=== PATIENT | female | born 1985 | race Caucasian/White ===

== ENCOUNTER 2017-10-29 14:35 | Emergency (ER) | payer OTHER ==
--- OUTSIDE RECORDS SUMMARY | 2017-10-29 14:38 | XMS REPORT ---
:1985 Author Organization eClinicalWorks Care Team Providers Name Role Phone Pal Serna Provider Role Unavailable Allergies, Adverse Reactions, Alerts Substance Reaction Event Type N.K.D.A. Info Not Available Non Drug Allergy Problems Problem Type Condition Code Onset Dates Condition Status Assessment Acute vaginitis N76.0 Active Assessment Well woman exam with routine Z01.419 Active gynecological exam Assessment Folliculitis L73.9 Active Assessment Encounter for surveillance of Z30.44 Active vaginal ring hormonal contraceptive device Problem Acute vaginitis N76.0 Active Problem Encounter for gynecological Z01.419 Active examination without abnormal finding Problem Pelvic pain R10.2 Active Problem Folliculitis L73.9 Active Assessment Encounter for gynecological Z01.419 Active examination without abnormal finding Problem Encounter for surveillance of Z30.44 Active vaginal ring hormonal contraceptive device Problem Well woman exam with routine Z01.419 Active gynecological exam Medications Medication Code Code Instructions Start End Status Dosage System Date Date NuvaRing [facility] 23344469969 0.12-0.015 Active 1 ring MG/24HR Vaginal insert vaginally for 3 weeks Clonazepam [facility] 56643435427 1 MG Orally Active 1 tablet Once a day Clindamycin ND 55034927808 1 % Externally October 03, Active 1 application Phosphate Twice a day 2018 to affected area Aripiprazole [facility] 91396154908 15 MG Orally Active 1 tablet Once a day Pristiq [facility] 32738663167 50 MG Orally Active 1 tablet Once a day Amphetamine NDC 0 20 MG Orally Active 1 tablet in Salt Combo Once a day the morning Results Name Result Date Reference Range Unit Abnormality Flag URINALYSIS AUTO W/O SCOPE (42963) ----NIT neg 20171003 ----URO 0.2 20171003 ----PROTEIN neg 20171003 ----pH 6.0 20171003 ----BLO neg 20171003 ----GLUCOSE neg 20171003 ----MIKEL neg 20171003 ----BILIRUBIN neg 20171003 ----KETONES neg 20171003 ----SPECIFIC GRAVITY 1.025 20171003 Summary Purpose eClinicalWorks Submission
--- OUTSIDE RECORDS SUMMARY | 2017-10-29 14:38 | XMS REPORT ---
:1985 Author Organization eClinicalWorks Care Team Providers Name Role Phone Pal Serna Provider Role Unavailable Allergies No Known Allergies Problems Problem Type Condition Code Onset Dates Condition Status Problem Acute vaginitis N76.0 Active Problem Encounter for gynecological Z01.419 Active examination without abnormal finding Problem Pelvic pain R10.2 Active Problem Folliculitis L73.9 Active Problem Encounter for surveillance of Z30.44 Active vaginal ring hormonal contraceptive device Problem Well woman exam with routine Z01.419 Active gynecological exam Medications Medication Code System Code Instructions Start Date End Date Status Dosage Flagyl [facility] 24804156249 500 MG Orally Active 1 tablet every 12 hours Results No Known Results Summary Purpose eClinicalWorks Submission
--- NOTE | 2017-10-29 14:58 | ER ---
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 Transition of care: patient was not received from another setting of care. Onset of symptoms was October 29, 2017. Risk Assessment: Do you want to hurt yourself or someone else? Patient reports no desire to harm self or others. Initial Sepsis Screen: Does the patient meet any 2 criteria? No. Patient's initial sepsis screen is negative. Does the patient have a suspected source of infection? No. Patient's initial sepsis screen is negative. Care prior to arrival: None. 14:42 Method Of Arrival: Ambulatory sg 14:42 Acuity: CANDICE 4 sg Triage Assessment: 15:06 General: Appears in no apparent distress. comfortable, Behavior is calm, cooperative, mb3 appropriate for age. Injury Description: strain. 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 - Social history:: Smoking status: Patient uses tobacco products, denies chronic smoking, but will smoke occasionally. - Ebola Screening: : Patient negative for fever greater than or equal to 101.5 degrees Fahrenheit, and additional compatible Ebola Virus Disease symptoms Patient denies exposure to infectious person Patient denies travel to an Ebola-affected area in the 21 days before illness onset No symptoms or risks identified at this time. Screenin:05 Abuse screen: Denies threats or abuse. Nutritional screening: No deficits noted. mb3 Tuberculosis screening: No symptoms or risk factors identified. Fall Risk None identified. Assessment: 15:04 General: Appears in no apparent distress. comfortable, Behavior is calm, cooperative, mb3 appropriate for age. Pain: Complains of pain in right elbow Pain does not radiate. Neuro: No deficits noted. Cardiovascular: No deficits noted. Respiratory: No deficits noted. GI: No deficits noted. : No deficits noted. Musculoskeletal: Capillary refill < 3 seconds, Range of motion: intact in all extremities, Reports pain in right elbow. Vital Signs: 14:41 Weight 87.54 kg; Height 5 ft. 6 in. (167.64 cm); sg 14:44 BP 114 / 77; Pulse 74; Resp 14; Temp 97.9; Pulse Ox 98% on R/A; Pain 7/10; sg 14:41 Body Mass Index 31.15 (87.54 kg, 167.64 cm) sg ED Course: 14:39 Patient arrived in ED. sb2 14:40 Eduar Morales MD is Private Physician. sb2 14:41 Arm band placed on. sg 14:43 Triage completed. sg 14:48 Brittny Villa FNP-Fly is [facility]. snw 14:48 Simeon Bosch MD is Attending Physician. snw 14:56 Josh Ridley, LYNDSAY is Primary Nurse. mb3 14:56 Eduar Morales MD is Referral Physician. snw 15:06 No provider procedures requiring assistance completed. Patient did not have IV access mb3 during this emergency room visit. 15:07 Patient has correct armband on for positive identification. mb3 Administered Medications: No medications were administered Outcome: 14:57 Discharge ordered by . snw 15:05 Discharged to home ambulatory. mb3 15:05 Condition: stable 15:05 Discharge instructions given to patient, Instructed on discharge instructions, follow up and referral plans. medication usage, Demonstrated understanding of instructions, follow-up care, medications, Prescriptions given X 1. 15:07 Patient left the ED. mb3 Signatures: Dany Scott RN RN sg Brittny Villa FNP-C BUSINESS SUPPORT-Csnw Adele Amezcua sb2 Josh Ridley RN RN mb3
--- NOTE | 2017-10-29 14:58 | EDPHYS ---
Physician Documentation [facility] Name: Yuli Talbert Age: 32 yrs Sex: Female : 1985 Arrival Date: 10/29/2017 Time: 14:39 Bed 24 Private MD: Eduar Morales E ED Physician Simeon Bosch HPI: 10/29 15:05 This 32 yrs old Female presents to ER via Ambulatory with complaints of Elbow snw Injury. 15:05 The patient or guardian complains of pain, that is acute, swelling, tenderness. The snw complaints affect the left elbow. Context: The problem was sustained at a sports field or court, resulted from repetitive motion tennis elbow. Onset: The symptoms/episode began/occurred gradually, 4 year(s) ago, and became worse 4 day(s) ago, and became persistent. Associated signs and symptoms: Pertinent positives: radiation of pain to right 4th and 5th fingers. Severity of symptoms: At their worst the symptoms were moderate. The patient has experienced similar episodes in the past. It is unknown whether or not the patient has recently seen a physician. 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 - Social history:: Smoking status: Patient uses tobacco products, denies chronic smoking, but will smoke occasionally. - Ebola Screening: : Patient negative for fever greater than or equal to 101.5 degrees Fahrenheit, and additional compatible Ebola Virus Disease symptoms Patient denies exposure to infectious person Patient denies travel to an Ebola-affected area in the 21 days before illness onset No symptoms or risks identified at this time. ROS: 15:05 Constitutional: Negative for fever, chills, and weight loss, Eyes: Negative for injury, snw pain, redness, and discharge, ENT: Negative for injury, pain, and discharge, Neck: Negative for injury, pain, and swelling, Cardiovascular: Negative for chest pain, palpitations, and edema, Respiratory: Negative for shortness of breath, cough, wheezing, and pleuritic chest pain, Abdomen/GI: Negative for abdominal pain, nausea, vomiting, diarrhea, and constipation, Back: Negative for injury and pain, : Negative for injury, bleeding, discharge, and swelling, Skin: Negative for injury, rash, and discoloration, Neuro: Negative for headache, weakness, numbness, tingling, and seizure, Psych: Negative for depression, anxiety, suicide ideation, homicidal ideation, and hallucinations. 15:05 MS/extremity: Positive for injury or acute deformity, decreased range of motion, pain, tenderness, of the right elbow. Exam: 15:05 Constitutional: This is a well developed, well nourished patient who is awake, alert, snw and in no acute distress. Head/Face: Normocephalic, atraumatic. Eyes: Pupils equal round and reactive to light, extra-ocular motions intact. Lids and lashes normal. Conjunctiva and sclera are non-icteric and not injected. Cornea within normal limits. Periorbital areas with no swelling, redness, or edema. ENT: Nares patent. No nasal discharge, no septal abnormalities noted. Tympanic membranes are normal and external auditory canals are clear. Oropharynx with no redness, swelling, or masses, exudates, or evidence of obstruction, uvula midline. Mucous membranes moist. Neck: Trachea midline, no thyromegaly or masses palpated, and no cervical lymphadenopathy. Supple, full range of motion without nuchal rigidity, or vertebral point tenderness. No Meningismus. Chest/axilla: Normal chest wall appearance and motion. Nontender with no deformity. No lesions are appreciated. Cardiovascular: Regular rate and rhythm with a normal S1 and S2. No gallops, murmurs, or rubs. Normal PMI, no JVD. No pulse deficits. Respiratory: Lungs have equal breath sounds bilaterally, clear to auscultation and percussion. No rales, rhonchi or wheezes noted. No increased work of breathing, no retractions or nasal flaring. Abdomen/GI: Soft, non-tender, with normal bowel sounds. No distension or tympany. No guarding or rebound. No evidence of tenderness throughout. Back: No spinal tenderness. No costovertebral tenderness. Full range of motion. Skin: Warm, dry with normal turgor. Normal color with no rashes, no lesions, and no evidence of cellulitis. Neuro: Awake and alert, GCS 15, oriented to person, place, time, and situation. Cranial nerves II-XII grossly intact. Motor strength 5/5 in all extremities. Sensory grossly intact. Cerebellar exam normal. Normal gait. 15:05 Musculoskeletal/extremity: Extremities: all appear grossly normal, with no appreciated pain with palpation, ROM: no acute changes, Circulation is intact in all extremities. Sensation intact. Compartment Syndrome exam of affected extremity: is normal. Vital Signs: 14:41 Weight 87.54 kg; Height 5 ft. 6 in. (167.64 cm); sg 14:44 BP 114 / 77; Pulse 74; Resp 14; Temp 97.9; Pulse Ox 98% on R/A; Pain 7/10; sg 14:41 Body Mass Index 31.15 (87.54 kg, 167.64 cm) sg MDM: 14:48 Patient medically screened. snw Administered Medications: No medications were administered Disposition: 18:20 Co-signature as Attending Physician, Simeon Bosch MD. rn Disposition: 10/29/17 14:57 Discharged to Home. Impression: Lateral epicondylitis, right elbow. - Condition is Stable. - Discharge Instructions: Elastic Bandage and RICE, Tennis Elbow, Tendinitis, Cryotherapy, Heat Therapy. - Prescriptions for Diclofenac Sodium 75 mg Oral Tablet Sustained Release - take 1 tablet by ORAL route 2 times per day; 30 tablet. - Medication Reconciliation Form, Thank You Letter, Antibiotic Education, Prescription Opioid Use form. - Follow up: Eduar Morales MD; When: 5 - 6 days; Reason: Recheck today's complaints, Continuance of care, Re-evaluation by your physician. Follow up: Emergency Department; When: As needed; Reason: Worsening of condition. Signatures: Dany Scott RN RN sg Brittny Villa, DIRECTOR OF PHYSICIAN PRACTICES-C DIRECTOR OF PHYSICIAN PRACTICES-Csnw Simeon Bosch MD MD rn Barnett, Mark, RN RN mb3 Corrections: (The following items were deleted from the chart) 15:07 14:57 10/29/2017 14:57 Discharged to Home. Impression: Lateral epicondylitis, right mb3 elbow. Condition is Stable. Forms are Medication Reconciliation Form, Thank You Letter, Antibiotic Education, Prescription Opioid Use. Follow up: Eduar Morales; When: 5 - 6 days; Reason: Recheck today's complaints, Continuance of care, Re-evaluation by your physician. Follow up: Emergency Department; When: As needed; Reason: Worsening of condition. snw
== END 2017-10-29 15:07 | disposition home or self-care (01) ==
LOC: ER 14:35
DX: M77.11 Lateral epicondylitis, right elbow (principal); F17.200 Nicotine dependence, unspecified, uncomplicated
CPT/HCPCS: 99282

== ENCOUNTER 2018-01-03 14:24 | Emergency (ER) | payer OTHER ==
--- OUTSIDE RECORDS SUMMARY | 2018-01-03 14:27 | XMS REPORT ---
:1985 Author Organization eClinicalWorks Care Team Providers Name Role Phone Angelo Garcia Provider Role Unavailable Allergies, Adverse Reactions, Alerts Substance Reaction Event Type N.K.D.A. Info Not Available Non Drug Allergy Problems Problem Type Condition Code Onset Dates Condition Status Assessment Right elbow pain M25.521 Active Assessment Lateral epicondylitis of right M77.11 Active elbow Problem Acute vaginitis N76.0 Active Problem Encounter for gynecological Z01.419 Active examination without abnormal finding Problem Pelvic pain R10.2 Active Problem Folliculitis L73.9 Active Problem Encounter for surveillance of Z30.44 Active vaginal ring hormonal contraceptive device Problem Well woman exam with routine Z01.419 Active gynecological exam Medications Medication Code Code Instructions Start End Status Dosage System Date Date Clonazepam ND 30174296560 1 MG Orally Active 1 tablet Once a day Mobic ND 18266495724 7.5 MG Orally Dec 16Jan Active 1 tablet Once a day 2017 Amphetamine Salt NDC 0 20 MG Orally Active 1 tablet Combo Once a day in the morning Aripiprazole ND 83774477466 15 MG Orally Active 1 tablet Once a day Pristiq ND 77079040805 50 MG Orally Active 1 tablet Once a day Results No Known Results Summary Purpose eClinicalWorks Submission
--- OUTSIDE RECORDS SUMMARY | 2018-01-03 14:27 | XMS REPORT ---
[...] Start Date End Date Status Dosage Flagyl [facility] 69546949611 500 MG Orally Active 1 tablet every 12 hours Results No Known Results Summary Purpose eClinicalWorks Submission
--- OUTSIDE RECORDS SUMMARY | 2018-01-03 14:27 | XMS REPORT ---
[...] Status Dosage System Date Date NuvaRing [facility] 31142364072 0.12-0.015 Active 1 ring MG/24HR Vaginal insert vaginally for 3 weeks Clonazepam [facility] 58918926313 1 MG Orally Active 1 tablet Once a day Clindamycin ND 00601643273 1 % Externally October 03, Active 1 application Phosphate Twice a day 2018 to affected area Aripiprazole [facility] 49780697848 15 MG Orally Active 1 tablet Once a day Pristiq [facility] 06527816259 50 MG Orally Active 1 tablet Once a day Amphetamine NDC 0 20 MG Orally Active 1 tablet in Salt Combo Once a day the morning Results Name Result Date Reference Range Unit Abnormality Flag URINALYSIS AUTO W/O SCOPE (75075) ----NIT neg 20171003 ----URO 0.2 20171003 ----PROTEIN neg 20171003 ----pH 6.0 20171003 ----BLO neg 20171003 ----GLUCOSE neg 20171003 ----MIKEL neg 20171003 ----BILIRUBIN neg 20171003 ----KETONES neg 20171003 ----SPECIFIC GRAVITY 1.025 20171003 Summary Purpose eClinicalWorks Submission
--- NOTE | 2018-01-03 16:08 | ER ---
Nurse's Notes [facility] Name: Yuli Talbert Age: 32 yrs Sex: Female : 1985 Arrival Date: 01/03/2018 Time: 14:28 Bed 9 Private MD: Eduar Morales E Diagnosis: Streptococcal pharyngitis Presentation: 01/03 14:34 Presenting complaint: Patient states: i woke up today, and my L inner hurts and my hj throat hurts, my body aches; reports fever;. Transition of care: patient was not received from another setting of care. Onset of symptoms was January 03, 2018. Risk Assessment: Do you want to hurt yourself or someone else? Patient reports no desire to harm self or others. Initial Sepsis Screen: Does the patient meet any 2 criteria? No. Patient's initial sepsis screen is negative. Does the patient have a suspected source of infection? No. Patient's initial sepsis screen is negative. Care prior to arrival: None. 14:34 Method Of Arrival: Ambulatory 14:34 Acuity: CANDICE 4 hj Triage Assessment: 14:36 General: Appears in no apparent distress. uncomfortable, Behavior is calm, cooperative, hj appropriate for age. Pain: Complains of pain in L ear and throat. 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 - Social history:: Smoking status: Patient/guardian denies using tobacco, Patient uses alcohol, occasionally. - Ebola Screening: : Patient negative for fever greater than or equal to 101.5 degrees Fahrenheit, and additional compatible Ebola Virus Disease symptoms Patient denies exposure to infectious person Patient denies travel to an Ebola-affected area in the 21 days before illness onset. Screenin:36 Abuse screen: Denies threats or abuse. Denies injuries from another. Nutritional hj screening: No deficits noted. Tuberculosis screening: No symptoms or risk factors identified. Fall Risk None identified. Assessment: 14:36 Respiratory: Airway is patent Respiratory effort is even, unlabored, Respiratory hj pattern is regular, symmetrical, Breath sounds are clear. 16:11 Reassessment: Patient appears in no apparent distress at this time. Patient and/or rv family updated on plan of care and expected duration. Pain level reassessed. Patient is alert, oriented x 3, equal unlabored respirations, skin warm/dry/pink. 16:12 EENT: Throat is reddened. rv Vital Signs: 14:37 BP 110 / 70; Pulse 95; Resp 18; Temp 98.4(TE); Pulse Ox 99% on R/A; Weight 85.28 kg; hj Height 5 ft. 6 in. (167.64 cm); Pain 10/10; 16:11 BP 96 / 59; Pulse 88; Pulse Ox 99% on R/A; rv 14:37 Body Mass Index 30.35 (85.28 kg, 167.64 cm) hj ED Course: 14:28 Patient arrived in ED. sb2 14:28 Eduar Morales MD is Private Physician. sb2 14:35 Triage completed. hj 14:37 Arm band placed on right wrist. hj 14:37 Patient has correct armband on for positive identification. Placed in gown. Bed in low hj position. Call light in reach. Side rails up X 1. 15:13 Lg Castillo NP is PHCP. pm1 15:13 Amari Dietrich MD is Attending Physician. pm1 16:14 No provider procedures requiring assistance completed. Patient did not have IV access rv during this emergency room visit. Administered Medications: No medications were administered Outcome: 16:08 Discharge ordered by . pm1 16:12 Discharged to home ambulatory. rv 16:12 Condition: good 16:12 Discharge instructions given to patient, Instructed on discharge instructions, follow up and referral plans. medication usage, Demonstrated understanding of instructions, follow-up care, medications, Prescriptions given X 1. 16:15 Patient left the ED. rv Signatures: Tal Amanda RN RN hj Lg Castillo NP ZOOKEEPER pm1 Adele Amezcua sb2 Talat Allison RN RN rv Corrections: (The following items were deleted from the chart) 14:39 14:37 Pulse 95bpm; Resp 18bpm; Pulse Ox 99% RA; Temp 98.4F Temporal; 85.28 kg; Height 5 hj ft. 6 in.; BMI: 30.3; Pain 10; hj
--- NOTE | 2018-01-03 16:08 | EDPHYS ---
Physician Documentation [facility] Name: Yuli Talbert Age: 32 yrs Sex: Female : 1985 Arrival Date: 01/03/2018 Time: 14:28 Bed 9 Private MD: Eduar Morales E ED Physician Amari Dietrich HPI: 01/03 15:56 This 32 yrs old Female presents to ER via Ambulatory with complaints of Sore pm1 Throat, Left Ear Pain. 15:56 The patient presents with sore throat. The patient describes throat pain as constant, pm1 raw, scratchy. Onset: The symptoms/episode began/occurred this morning. Severity of symptoms: in the emergency department the symptoms are unchanged. Modifying factors: The symptoms are alleviated by nothing, the symptoms are aggravated by swallowing, Patient's oral intake status: good. Associated signs and symptoms: Pertinent positives: earache, subjective fever, Pertinent negatives chest pain, chills, cough. The patient has not experienced similar symptoms in the past. The patient has not recently seen a physician. DOG WALKER: 14:37 LMP 11/23/2017 Historical: - Allergies: 14:36 NKDA; hj - Home Meds: 14:36 Abilify Oral [Active]; Adderall XR Oral [Active]; Klonopin Oral [Active]; Pristiq Oral hj [Active]; - PMHx: 14:36 Anxiety; Bipolar disorder; BORDERLINE PERSONALITY DISORDER; chronic back pain; hj - PSHx: 14:36 Knee surgery; hj - Immunization history:: Adult Immunizations up to date. - Social history:: Smoking status: Patient/guardian denies using tobacco, Patient uses alcohol, occasionally. - Ebola Screening: : Patient negative for fever greater than or equal to 101.5 degrees Fahrenheit, and additional compatible Ebola Virus Disease symptoms Patient denies exposure to infectious person Patient denies travel to an Ebola-affected area in the 21 days before illness onset. ROS: 15:56 Constitutional: Negative for fever, chills, and weight loss, Eyes: Negative for injury, pm1 pain, redness, and discharge, Neck: Negative for injury, pain, and swelling. 15:56 Cardiovascular: Negative for chest pain, palpitations, and edema, Respiratory: Negative for shortness of breath, cough, wheezing, and pleuritic chest pain, Abdomen/GI: Negative for abdominal pain, nausea, vomiting, diarrhea, and constipation, Back: Negative for injury and pain, : Negative for injury, bleeding, discharge, and swelling, MS/Extremity: Negative for injury and deformity, Skin: Negative for injury, rash, and discoloration, Neuro: Negative for headache, weakness, numbness, tingling, and seizure. 15:56 ENT: Positive for ear pain, sore throat, Negative for difficulty swallowing, difficulty handling secretions, hoarseness. Exam: 15:56 Constitutional: This is a well developed, well nourished patient who is awake, alert, pm1 and in no acute distress. Head/Face: Normocephalic, atraumatic. Eyes: Pupils equal round and reactive to light, extra-ocular motions intact. Lids and lashes normal. Conjunctiva and sclera are non-icteric and not injected. Cornea within normal limits. Periorbital areas with no swelling, redness, or edema. 15:56 Neck: Trachea midline, no thyromegaly or masses palpated, and no cervical lymphadenopathy. Supple, full range of motion without nuchal rigidity, or vertebral point tenderness. No Meningismus. Chest/axilla: Normal chest wall appearance and motion. Nontender with no deformity. No lesions are appreciated. Cardiovascular: Regular rate and rhythm with a normal S1 and S2. No gallops, murmurs, or rubs. Normal PMI, no JVD. No pulse deficits. Respiratory: Lungs have equal breath sounds bilaterally, clear to auscultation and percussion. No rales, rhonchi or wheezes noted. No increased work of breathing, no retractions or nasal flaring. Abdomen/GI: Soft, non-tender, with normal bowel sounds. No distension or tympany. No guarding or rebound. No evidence of tenderness throughout. Back: No spinal tenderness. No costovertebral tenderness. Full range of motion. Skin: Warm, dry with normal turgor. Normal color with no rashes, no lesions, and no evidence of cellulitis. MS/ Extremity: Pulses equal, no cyanosis. Neurovascular intact. Full, normal range of motion. 15:56 ENT: External ear(s): are unremarkable, Ear canal(s): are normal, TM's: are normal, Nose: is normal, Mouth: is normal, Posterior pharynx: Airway: normal, no evidence of obstruction, patent, Tonsils: bilaterally enlarged, with erythema, with exudate, no ulcerations, peritonsillar mass, is not appreciated, pooling of secretions, is not appreciated. 15:56 Neuro: Orientation: is normal, Motor: is normal, moves all fours. Vital Signs: 14:37 BP 110 / 70; Pulse 95; Resp 18; Temp 98.4(TE); Pulse Ox 99% on R/A; Weight 85.28 kg; hj Height 5 ft. 6 in. (167.64 cm); Pain 10/10; 16:11 BP 96 / 59; Pulse 88; Pulse Ox 99% on R/A; rv 14:37 Body Mass Index 30.35 (85.28 kg, 167.64 cm) hj MDM: 15:13 Patient medically screened. pm1 16:07 Data reviewed: vital signs. Data interpreted: Pulse oximetry: on room air is 99 %. pm1 Interpretation: normal. Counseling: I had a detailed discussion with the patient and/or guardian regarding: the historical points, exam findings, and any diagnostic results supporting the discharge/admit diagnosis, lab results, the need for outpatient follow up, to return to the emergency department if symptoms worsen or persist or if there are any questions or concerns that arise at home. 01/03 15:28 Order name: Strep; Complete Time: 16:08 pm1 Administered Medications: No medications were administered Disposition: 01/04 08:52 Co-signature as Attending Physician, Amari Dietrich MD I agree with the assessment and gabriel plan of care. Disposition: 01/03/18 16:08 Discharged to Home. Impression: Streptococcal pharyngitis. - Condition is Stable. - Discharge Instructions: Strep Throat, Dental Work and . - Prescriptions for Amoxicillin 500 mg Oral Capsule - take 1 capsule by ORAL route every 8 hours for 10 days; 30 tablet. - Medication Reconciliation Form, Thank You Letter, Antibiotic Education, Prescription Opioid Use, Work release form form. - Follow up: Emergency Department; When: As needed; Reason: Worsening of condition. Follow up: Private Physician; When: As needed; Reason: Recheck today's complaints, Continuance of care, Re-evaluation by your physician. - Problem is new. - Symptoms have improved. Signatures: Dispatcher [employer] Amari Khalil MD MD cha Joaquin, Henry, RN RN hj Lg Castillo, JOHNY COAL HANDLER pm1 Talat Allison, RN RN rv Corrections: (The following items were deleted from the chart) 01/03 16:15 16:08 01/03/2018 16:08 Discharged to Home. Impression: Streptococcal pharyngitis. rv Condition is Stable. Forms are Medication Reconciliation Form, Thank You Letter, Antibiotic Education, Prescription Opioid Use. Follow up: Emergency Department; When: As needed; Reason: Worsening of condition. Follow up: Private Physician; When: As needed; Reason: Recheck today's complaints, Continuance of care, Re-evaluation by your physician. Problem is new. Symptoms have improved. pm1
== END 2018-01-03 16:15 | disposition home or self-care (01) ==
LOC: ER 14:24
DX: J02.0 Streptococcal pharyngitis (principal); H92.02 Otalgia, left ear; F31.9 Bipolar disorder, unspecified; F41.9 Anxiety disorder, unspecified; F60.3 Borderline personality disorder; M54.9 Dorsalgia, unspecified; G89.29 Other chronic pain
CPT/HCPCS: 87081; 99282

== ENCOUNTER 2019-08-12 13:26 | Emergency (ER) | payer OTHER ==
--- OUTSIDE RECORDS SUMMARY | 2019-08-12 13:27 | XMS REPORT ---
:1985 Author Organization [employer] Care Team Providers Name Role Phone Pal Serna Provider Role Unavailable Allergies, Adverse Reactions, Alerts Substance Reaction Event Type N.K.D.A. Info Not Available Non Drug Allergy Problems Problem Type Condition Code Onset Dates Condition Statu s Assessment Acute vaginitis N76.0 Active Assessment Well [...] End Status Dosage System Date Date NuvaRing [facility] 29467236371 0.12-0.015 Active 1 ring MG/24HR Vaginal insert vaginally for 3 weeks Clonazepam ND 18511462247 1 MG Orally Active 1 tab let Once a day Clindamycin [facility] 82701310521 1 % Externally October 03, Active 1 application Phosphate Twice a day 2018 to affecte d area Aripiprazole [facility] 44561113154 15 MG Orally Active 1 tablet Once a day Pristiq [facility] 43999421658 50 MG Orally Active 1 table t Once a day Amphetamine NDC 0 20 MG Orally Active 1 table t in Salt Combo Once a day the mornin g Results Name Result Date Reference Range Unit Abnormali ty Flag URINALYSIS AUTO W/O SCOPE (64672) ----NIT neg 20171003 ----URO 0.2 20171003 ----PROTEIN neg 20171003 ----pH 6.0 20171003 ----BLO neg 20171003 ----GLUCOSE neg 20171003 ----MIKEL neg 20171003 ----BILIRUBIN neg 20171003 ----KETONES neg 20171003 ----SPECIFIC GRAVITY 1.025 20171003 Summary Purpose eClinicalWorks Submission
--- OUTSIDE RECORDS SUMMARY | 2019-08-12 13:28 | XMS REPORT ---
:1985 Author Organization [employer] Care Team Providers Name Role Phone Pal Serna Provider Role Unavailable Allergies No Known Allergies Problems Problem Type Condition Code Onset Dates Condition Statu s Problem Acute vaginitis N76.0 Active Problem Encounter for gynecological Z01.419 Active examination without abnormal finding Problem Pelvic pain R10.2 Active Problem Folliculitis L73.9 Active Problem Encounter for surveillance of Z30.44 Active vaginal ring hormonal contraceptive device Problem Well woman exam with routine Z01.419 Active gynecological exam Medications Medication Code System Code Instructions Start Date End Date Status Dosage Flagyl [facility] 11904829639 500 MG Orally Active 1 tabl et every 12 hours Results No Known Results Summary Purpose eClinicalWorks Submission
--- OUTSIDE RECORDS SUMMARY | 2019-08-12 13:28 | XMS REPORT ---
:1985 Author Organization [facility] t Address [address] [place] [address] Dr. [address] [place] [address] Care Team Providers Name Role Phone Unavailable Unavailable Unavailable Problems This patient has no known problems. Allergies, Adverse Reactions, Alerts This patient has no known allergies or adverse reactions. Medications This patient has no known medications.
--- OUTSIDE RECORDS SUMMARY | 2019-08-12 13:28 | XMS REPORT ---
:1985 Author Organization [employer] Care Team Providers Name Role Phone Pal Serna Provider Role Unavailable Allergies No Known Allergies Problems Problem Type Condition Code Onset Dates Condition Statu s Problem Pelvic pain R10.2 Active Problem Acute vaginitis N76.0 Active Problem Painful menstrual periods N94.6 Ac tive Problem Well woman exam with routine Z01.419 Active gynecological exam Problem Folliculitis L73.9 Active Problem Encounter for gynecological Z01.419 Active examination without abnormal finding Problem Encounter for surveillance of Z30.44 Active vaginal ring hormonal contraceptive device Medications Medication Code System Code Instructions Start Date End Date Status Dosage Loestrin 24 Fe NDC 0 1-20 MG-MCG Orally September 14, Active 1 tablet Once a day 2018 Results No Known Results Summary Purpose eClinicalWorks Submission
--- OUTSIDE RECORDS SUMMARY | 2019-08-12 13:28 | XMS REPORT ---
:1985 Author Organization [employer] Care Team Providers Name Role Phone Jose Angelo Provider Role Unavailable Allergies, Adverse Reactions, Alerts Substance Reaction Event Type N.K.D.A. Info Not Available Non Drug Allergy Problems Problem Type Condition Code Onset Dates Condition Statu s Assessment Right elbow pain M25.521 Active Assessment [...] End Status Dosage System Date Date Clonazepam [facility] 70512797543 1 MG Orally Active 1 tab let Once a day Mobic [facility] 13449299542 7.5 MG Orally Dec 16Jan Active 1 tabl et Once a day 2017 Amphetamine Salt NDC 0 20 MG Orally Active 1 tablet Combo Once a day in the morning Aripiprazole ND 21944067459 15 MG Orally Active 1 tablet Once a day Pristiq ND 38727506508 50 MG Orally Active 1 table t Once a day Results No Known Results Summary Purpose eClinicalWorks Submission
--- OUTSIDE RECORDS SUMMARY | 2019-08-12 13:28 | XMS REPORT ---
[...] Active vaginal ring hormonal contraceptive device Medications No Known Medications Results No Known Results Summary Purpose eClinicalWorks Submission
--- OUTSIDE RECORDS SUMMARY | 2019-08-12 13:28 | XMS REPORT ---
:1985 Author Organization [employer] Care Team Providers Name Role Phone Pal Serna Provider Role Unavailable Allergies, Adverse Reactions, Alerts Substance Reaction Event Type N.K.D.A. Info Not Available Non Drug Allergy Problems Problem Type Condition Code Onset Dates Condition Statu s Assessment Well woman exam with routine Z01.419 Active gynecological exam Assessment Painful menstrual periods N94.6 Ac tive Assessment Encounter for surveillance of Z30.44 Active vaginal ring hormonal contraceptive device Problem Pelvic pain R10.2 Active Problem Acute vaginitis N76.0 Active Problem Painful menstrual periods N94.6 Ac tive Problem Well woman exam with routine Z01.419 Active gynecological exam Problem Folliculitis L73.9 Active Problem Encounter for gynecological Z01.419 Active examination without abnormal finding Problem Encounter for surveillance of Z30.44 Active vaginal ring hormonal contraceptive device Medications Medication Code Code Instructions Start End Status Dosage System Date Date NuvaRing [facility] 95360100058 0.12-0.015 July Active 1 ring MG/24HR Vaginal 2018 insert vaginally for 3 weeks Aripiprazole [facility] 43401698100 15 MG Orally Active 1 tablet Once a day Amphetamine Salt NDC 0 20 MG Orally Active 1 tablet Combo Once a day in the morning Clonazepam [facility] 83774122349 1 MG Orally Active 1 tab let Once a day Pristiq [facility] 40812353576 50 MG Orally Active 1 table t Once a day Results No Known Results Summary Purpose eClinicalWorks Submission
--- OUTSIDE RECORDS SUMMARY | 2019-08-12 13:28 | XMS REPORT | Summary of Care ---
:1985 Author Organization [facility] Address [address] [place] [address] Care Team Providers Name Role Phone Eduar Morales Primary Care Provider Reason for Visit Reason Comments LAB Encounter Details Date Type Department Care Team Description 12/29/2018 Dialysis Patient Care Technician Visit [facility] Wander Corona MD [address] [place] [address] Supervision of high Professional Office 2, Adc Lab risk in Building Phlebot[facility] Professional Office Building [address] [place] [address] , [address] [place] [address] Allergies No Known Allergiesdocumented as of this encounter (statuses as of 12/29/2018) Medications Medication Sig Dispensed Refills Start Date End Date Status clonazePAM 1 mg tablet 0 12/22/2018 Active PRISTIQ 50 mg 24 hr 0 12/20/2018 Active tablet methocarbamol 750 mg 0 12/28/2018 Active tablet ARIPiprazole 15 mg tablet 0 12/16/2018 Active dextroamphetamine-ampheta 0 12/26/2018 Active mine 20 mg tablet vit Take by mouth. 0 A ctive calc,iron,folic ( VITAMIN ORAL) nutritional Take by mouth. 0 Ac tive supplement/fiber (JUICE PLUS FIBRE ORAL) documented as of this encounter (statuses as of 12/29/2018) Active Problems Problem Noted Date Obesity (BMI 30-39.9) 12/29/2018 Estimated Date of Delivery Comments Yes 08/27/2019 documented as of this encounter (statuses as of 12/29/2018) Social History Tobacco Use Types Packs/Day Years Used Date Current Every Day Smoker Cigarettes Smokeless Tobacco: Never Used Alcohol Use Drinks/Week oz/Week Comments Not Currently Estimated Date of Delivery Comments Yes 08/27/2019 Sex Assigned at Date Recorded Not on file Job Start Date Occupation Industry Not on file Not on file Not on file Travel History Travel Start Travel End No recent travel history available. documented as of this encounter Last Filed Vital Signs Not on filedocumented in this encounter Plan of Treatment Date Type Specialty Care Team Description 01/19/2019 Routine Obstetrics & Corona, Wander burks MD Visit Gynecology [address] [place] [phone] Name Type Priority Associated Diagnoses Order S chedule CBC WITH DIFFERENTIAL LAB Routine Supervision of high risk Ordered: 12/29/2018 in first trimester Health Maintenance Due Date Last Done Comments PNEUMOCOCCAL 0-64 YEARS COMBINED SERIES (1 of 1 - 1993 PPSV23) VARICELLA VACCINES (1 of 2 - 13+ 2-dose series) 2000 DTaP,Tdap,and Td Vaccines (1 - Tdap) 2006 PAP SMEAR 2008 INFLUENZA VACCINE (#1) 2019 documented as of this encounter Results Not on filedocumented in this encounter Visit Diagnoses Diagnosis Supervision of high risk in rst trimester Unspecified high-risk documented in this encounter Insurance Payer Benefit Plan / Subscriber ID Effective Phone Address T ype [facility] xxxxxxxxx 2017-Prese [address] BOX Medic aid HE[facility] CHO[facility] - [place] [id number] 1 MANAGED MEDICAID [place] [phone] documented as of this encounter
--- OUTSIDE RECORDS SUMMARY | 2019-08-12 13:29 | XMS REPORT | Summary of Care ---
:1985 Author Organization [address] [address] Care Team Providers Name Role Phone Eduar Morales Primary Care Provider Rekhi Unavailable Reason for Visit Reason Comments Results Encounter Details Date Type Department Care Team Description 01/06/2019 Telephone [facility] Women's Yokasta Corona MD Results Healthcare- [address], [place] [address] [address] [place] [address] [phone] Allergies No Known Allergiesdocumented as of this encounter (statuses as of 01/06/2019) Medications Medication Sig Dispensed Refills Start Date End Date Status ABILIFY 15 mg tablet 0 12/20/2016 Active clonazePAM 1 mg tablet 0 12/22/2018 Active [...] as of this encounter (statuses as of 01/06/2019) Active Problems Problem Noted Date Obesity (BMI 30-39.9) 12/29/2018 Estimated Date of Delivery Comments Yes 08/27/2019 documented as of this encounter (statuses as of 01/06/2019) Social History Tobacco Use Types Packs/Day Years [...] & Corona, Wander burks MD Visit Gynecology [address] [place] [phone] Health Maintenance Due Date Last Done Comments PNEUMOCOCCAL 0-64 YEARS COMBINED SERIES (1 of 1 - 1993 PPSV23) DTaP,Tdap,and Td Vaccines (1 - Tdap) 2006 PAP SMEAR 2008 INFLUENZA VACCINE (#1) 2019 documented as of this encounter Results Not on filedocumented in this encounter Insurance Payer Benefit Plan / Subscriber ID Effective Phone Address T [facility] xxxxxxxxx 2016-Prese P[address]O. BOX Medic aid HEALTH CHOICE - HEALTH CHOICE nt [id number] 1 MANAGED MED[place] [phone] [facility] xxxxxxxxx 2017-Prese [address] BOX Medic aid HEALTH CHOICE - HEALTH CHOICE nt [id number] 1 MANAGED MEDICAID [place] [phone] documented as of this encounter
--- OUTSIDE RECORDS SUMMARY | 2019-08-12 13:29 | XMS REPORT | Summary of Care ---
:1985 Author Organization [address] [address] Care Team Providers Name Role Phone Eduar Morales Primary Care Provider Rekhi Unavailable Reason for Visit Reason Comments Results Encounter Details Date Type Department Care Team Description 01/06/2019 Telephone [facility] Women's Yokasta Corona MD Results Healthcare- [address], [place] [address] [address] [place] [address] [phone] Allergies No Known Allergiesdocumented as of this [...] & Corona, Wander burks MD Visit Gynecology [address] [place] [phone] Health Maintenance Due Date Last Done Comments PNEUMOCOCCAL 0-64 YEARS COMBINED SERIES (1 of 1 - 1993 PPSV23) DTaP,Tdap,and Td Vaccines (1 - Tdap) 2006 PAP SMEAR 2008 INFLUENZA VACCINE (#1) 2019 documented as of this encounter Results Not on filedocumented in this encounter Insurance Payer Benefit Plan / Subscriber ID Effective Phone Address T [facility] xxxxxxxxx 2016-Prese P[address]O. BOX Medic aid HEALTH CHOICE - HEALTH CHOICE nt [id number] 1 MANAGED MEDICA[place] [phone] [facility] [place] xxxxxxxxx 2017-Prese P[address]O. BOX Medic aid HEALTH CHOICE - HEALTH CHOICE nt [id number] 1 MANAGED MED[place] [phone] documented as of this encounter
--- OUTSIDE RECORDS SUMMARY | 2019-08-12 13:29 | XMS REPORT | Summary of Care ---
:1985 Author Organization [address] [address] Care Team Providers Name Role Phone Eduar Morales Primary Care Provider Rekhi Unavailable Reason for Visit Reason Comments Assessment Encounter Details Date Type Department Care Team Description 01/10/2019 Telephone [facility] Women's Yokasta Corona MD Assessment Healthcare- [address], [place] [address] [address] [place] [address] [phone] Allergies No Known Allergiesdocumented as of this encounter (statuses as of 01/10/2019) Medications Medication Sig Dispensed Refills Start Date [...] as of this encounter (statuses as of 01/10/2019) Active Problems Problem Noted Date Obesity (BMI 30-39.9) 12/29/2018 Estimated Date of Delivery Comments Yes 08/27/2019 documented as of this encounter (statuses as of 01/10/2019) Social History Tobacco Use Types Packs/Day Years [...] & Corona, Wander burks MD Visit Gynecology [address] [place] [phone] Health Maintenance Due Date Last Done Comments PNEUMOCOCCAL 0-64 YEARS COMBINED SERIES (1 of 1 - 1993 PPSV23) DTaP,Tdap,and Td Vaccines (1 - Tdap) 2006 PAP SMEAR 2008 INFLUENZA VACCINE (#1) 2019 documented as of this encounter Results Not on filedocumented in this encounter Insurance Payer Benefit Plan / Subscriber ID Effective Phone Address T [facility] xxxxxxxxx 2016-Prese P[address]O. BOX Medic aid HEALTH CHOICE - HEALTH CHOICE nt [id number] 1 MANAGED MEDICA[place] [address] [facility] xxxxxxxxx 2017-Prese P[address]O. BOX Medic aid HEALTH CHOICE - HEALTH CHOICE nt [id number] 1 MANAGED MED[place] [phone] documented as of this encounter
--- OUTSIDE RECORDS SUMMARY | 2019-08-12 13:29 | XMS REPORT | Summary of Care ---
:1985 Author Organization [facility] Address [address] [place] [address] Care Team Providers Name Role Phone Eduar Morales Primary Care Provider Rekhi Unavailable Reason for Visit Reason Comments MISSED MENSES Encounter Details Date Type Department Care Team Description 12/29/2018 Initial [facility] Yokasta Corona, Supervision of high risk in first trimester (Primary Dx); Visit Healthcare- MD Missed menses; [address] Obesity (BMI 30-39.9); [address] [place] [address] Depress ion, unspecified depression type [address] [phone] [place], [place] [phone] [phone] Allergies No Known Allergiesdocumented as of this encounter (statuses as of 12/30/2018) Medications Medication Sig Dispensed Refills Start Date [...] as of this encounter (statuses as of 12/30/2018) Active Problems Problem Noted Date Obesity (BMI 30-39.9) 12/29/2018 Estimated Date of Delivery Comments Yes 08/27/2019 documented as of this encounter (statuses as of 12/30/2018) Social History Tobacco Use Types Packs/Day Years Used Date Current Every Day Smoker Cigarettes Smokeless Tobacco: Never Used Tobacco Cessation: Ready to Quit: Yes; C ounseling Given: Yes Alcohol Use Drinks/Week oz/Week Comments Not Currently Estimated Date of Delivery Comments Yes 08/27/2019 Sex Assigned at Date Recorded Not on file Job Start Date Occupation Industry Not on file Not on file Not on file Travel History Travel Start Travel End No recent travel history available. documented as of this encounter Last Filed Vital Signs Vital Sign Reading Time Taken Comments Blood Pressure 130/86 12/29/2018 8:18 AM CDT Pulse 69 12/29/2018 8:18 AM CDT Temperature 36.7 C (98.1 F) 12/29/2018 8:12 AM CDT Respiratory Rate 20 12/29/2018 8:12 AM CDT Oxygen Saturation - - Inhaled Oxygen Concentration - - Weight 86.4 kg (190 lb 6.4 oz) 12/29/2018 8:12 AM CDT Height 167.6 cm (5' 6") 12/29/2018 8:12 AM CDT Body Mass Index 30.73 12/29/2018 8:12 AM CDT documented in this encounter Patient Instructions Patient InstructionsYokasta Corona MD - 12/29/2018 8:00 AM CDT Adapting to : First Trimester As your body adjusts, you may have to change or limit your daily activities. Youll need more rest. You may also need to use the energy you have more wisely. Your changing body Almost every part of your body is affected as you adapt to . The uterus and cervix will begin to soften right away. You may not look very during the first 3 months. But you are likelyto have some common signs of early : Nausea Fatigue Frequent urination Mood swings Bloating of the belly Constipation Heartburn Missed or light periods (first trimester bleeding) Nipple or breast tenderness and breast swelling Its not too late to start good habits What matters most is protecting your baby from this moment on. If you smoke, drink alcohol, or use drugs, now is the time to stop. If you need help, talk with your healthcare provider: Smoking increases the risk of stillbirthor having a tvl-ufiok-jmyceg baby. If you smoke, quit now. Alcohol and drugs have been linked with miscarriage, defects, intellectual disability, and low weight. Do not drink alcohol or take drugs. Tips to relieve nausea Although nausea can happen at any time of the day, it may be worse in the morning. To help prevent nausea: Eat small, light meals at frequent intervals. Drink fluids often. Get up slowly. Eat a few unsalted crackers before you get out of bed. Avoid smells that bother you. Avoid spicy and fatty foods. Eat an ice popin your favorite flavor. Get plenty of rest. Ask your healthcare provider about taking jaden or vitamin B6 for nausea and vomiting. Talk with your healthcare provider if you take vitamins that upset your stomach. Work concerns The end of the first trimester is a good time to discuss working during with your employer. Follow your healthcare providers advice if your job needs you to stand for a long time, work with hazardous tools, or even sit at a desk all day. Your workspace, workload, or scheduled hours may need to be adjusted. Perhaps you can change body postures more often or take an extra break. Advice for travel Talk to your healthcare provider first, but the second trimester may be the best time for any travel. You may be advised to avoid certain trips while youre . Food and water can be concerns in developing countries. Travel by car is a good choice, as you can stop, get out, and stretch. Bring snacks and water along. Fasten the lap belt below your belly, low over your hips. Also be sure to wear the shoulder harness. Intimacy Unless your healthcare provider tells you to, there is no reason to stop having sex while youre . You or your partner may notice changes in desire. Desire may be less in the first trimester,due to nausea and fatigue. In the second trimester, sex may be very enjoyable. The third trimester can be a challenge comfort-millan. Try different positions and see whats best for you both. Date Last Reviewed: 01/31/201719998248-7984 [employer]. [address] [place] [address], [place] [address]. All rights reserved. This information is not intended as a substitute for professional medical care. Always follow your healthcare professional's instructions. documented in this encounter Progress Notes Yokasta Corona MD - 12/29/2018 8:00 AM CDT Chief complaint: Chief Complaint Patient presents with MISSED MENSES HPI Yuli Talbert is a 33 year old female 5w4d by [facility] dates presents for her first visit. She has had no pelvic pain, vaginal bleeding, N/V. She does have a history of anxiety/depression and has been taking Aripiprazole/Pristiq for years, including through the duration of her pregnanci es. She sees Dr. Morales and his PA for treatment/medications. Histories OB History Para Term AB Living 6 2 2 0 3 2 SAB TAB Ectopic Multiple Live Births 1 0 0 0 2 # Outcome Date GA Lbr Keith/2nd Weight Sex Delivery Anes PTL Lv 6 Current 5 SAB 05/03/15 10w0d 4 Term 03/03/13 38w0d 3629 g M Vag-Spont EPI RUBY 3 AB 05/03/11 8w0d 2 Term 08/09/10 39w6d 3374 g F Vag-Spont EPI N RUBY Complications: High blood pressure 1 AB 05/03/08 8w0d Past Medical History: Diagnosis Date Anemia Anxiety Chlamydia 2014 Depression Bipolar Mental disorder Pap smear abnormality of cervix STD (sexually transmitted disease) Substance abuse Family History Problem Relation Age of Onset Diabetes Mother Depression Mother Psychiatry Mother Bipolar Depression Father Psychiatry Father anxiety Psychiatry Brother Bipolar Arthritis NoFHx Asthma NoFHx defects NoFHx Genetic NoFHx Breast Cancer NoFHx Colon Cancer NoFHx Ovarian Cancer NoFHx Uterine Cancer NoFHx Cancer NoFHx Heart NoFHx High cholesterol NoFHx Hypertension NoFHx Mental retardation NoFHx Neurological NoFHx Osteoporosis NoFHx Family Status Relation Name Status Mo Alive Fa Alive Bro (Not Specified) NoFHx (Not Specified) Past Surgical History: Procedure Laterality Date [place] ANESTH,KNEE AREA SURGERY 2008 Cleaned out scar tissue Social History Socioeconomic History Marital status: Single Spouse name: Not on file Number of children: Not on file Years of education: Not on file Highest education level: Not on file Occupational History Not on file Social Needs Financial resource strain: Not on file Food insecurity: Worry: Not on file Inability: Not on file Transportation needs: Medical: Not on file Non-medical: Not on file Tobacco Use Smoking status: Current Every Day Smoker Types: Cigarettes Smokeless tobacco: Never Used Substance and Sexual Activity Alcohol use: Not Currently Drug use: Yes Types: Marijuana Sexual activity: Yes Partners: Male control/protection: None Lifestyle Physical activity: Days per week: Not on file Minutes per session: Not on file Stress: Not on file Relationships Social connections: Talks on phone: Not on file Gets together: Not on file Attends gnosticist service: Not on file Active member of club or organization: Not on file Attends meetings of clubs or organizations: Not on file Relationship status: Not on file Intimate partner violence: Fear of current or ex partner: Not on file Emotionally abused: Not on file Physically abused: Not on file Forced sexual activity: Not on file Other Topics Concern Not on file Social History Narrative Denies domestic violence or abuse Exposure to cats - Toxoplasmosis precautions Rastafari preference: non-hoahaoism Social History Substance and Sexual Activity Sexual Activity Yes Partners: Male control/protection: None Genetic Screen No Significant History of Genetic Disorders: No Significant History of Genetic Disorders Labs No new labs Radiology No new radiology. Allergies Yuli has No Known Allergies. Medications Yuli has a current medication list which includes the following prescription(s): aripiprazole, nutritional supplement/fiber, vit calc,iron,folic, pristiq, clonazepam, dextroamphetamine-amphetamine, and methocarbamol. Review of Systems Constitutional: Negative. Right tooth ache HENT: Positive for dental problem. Eyes: Negative. Respiratory: Negative. Breasts: Negative. Cardiovascular: Negative. Gastrointestinal: Negative. Genitourinary: Negative. Musculoskeletal: Negative. Skin: Negative. Neurological: Negative. Psychiatric/Behavioral: Negative. Endocrine: Endocrine negative BP 130/86 (BP Location: Left arm, Patient Position: Sitting, BP CUFF SIZE: Adult Medium) | Pulse 69 | Temp 36.7 C (98.1 F) (Oral) | Resp 20 | Ht 5' 6" (1.676 m) | Wt 190 lb 6.4 oz (86.4 kg) |LMP 11/20/2018 (Exact Date) | BMI 30.73 kg/m Pregravid BMI: Could not be calculated Physical Exam Vitals reviewed. Constitutional: She appears well-developed. Cardiovascular: Regular rate and rhythm. No murmur auscultated. No peripheral edema present. Pulmonary/Chest: Breath sounds clear to auscultation. Normal inspiratory effort. Abdominal: Abdomen is soft. No mass palpated. No tenderness present. There is no hepatomegaly. Neuro/Psychiatric: She has a normal mood and affect. Skin: Skin normal. Pelvic:Deferred Assessment/Plan Supervision of high risk in first trimester Comment: Patient appears well. Positive test today. See HPI Plan: ADC / LCC - DRUG SCREEN TRIAGE, ADC OR PAMELA ONLY - RPR, ADC, CLC OR LCC ONLY - HIV TYPE 1 AND 2 ANTIBODY SCREEN WITH P24, CBC WITH DIFF, GC & CHLAMYDIA AMPLIFIED ASSAY, GLUCOSE 1 HOUR POST PRANDIAL, HCV ANTIBODY, HEPATITIS B SURFACE ANTIGEN, URINE CULTURE, VZV ANTIBODY SCREEN, RUBELLA SCREEN IGG, WORKUP, BLOOD BANK Obesity (BMI 30-39.9) Comment: BMI 30.73.Dietary counseling - avoid sweets, added sugars, sweetened beverages and processed carbs. Concentrate on lean proteins, vegetables and fruits, and healthy fats. Drink plenty of water. Try to get 30 minutes of moderate exercise/walking on most days. Plan: Evaluate every visit Depression, unspecified depression type Comment: Patient doing well on medications as per HPI Plan: Discussed risks of medications with patient. She understands that there may be an increased risk of abnormalities, offspring behavior issues connected to drug therapy. She will continue medical therapy as it does control her depression and she has continued them through her last pregnancies. Return to clinic in 3 weeks. Will proceed with dating US, genetic studies on RTC as per patient desire and discussed today. This visit did not involve counseling and coordination that comprised more than 50% of the visit time. Yokasta Corona MD documented in this encounter Plan of Treatment Date Type Specialty Care Team Description 01/19/2019 Routine Obstetrics & Wander Corona MD Visit Gynecology [address] [place] [phone] Name Type Priority Associated Diagnoses Order S chedule GLUCOSE 1 HOUR POST LAB Routine Supervision of high r isk Expected: 12/29/2018, PRANDIAL in first Expires: 03/31/2019 trimester Health Maintenance Due Date Last Done Comments PNEUMOCOCCAL 0-64 YEARS COMBINED SERIES (1 of 1 - 1993 PPSV23) DTaP,Tdap,and Td Vaccines (1 - Tdap) 2006 PAP SMEAR 2008 INFLUENZA VACCINE (#1) 2019 documented as of this encounter Procedures Procedure Name Priority Date/Time Associated Diagnosis Comme nts ADC / LCC - DRUG Routine 12/29/2018 9:20 AM Supervision of hi gh Results for this SCREEN TRIAGE CDT risk in procedure are in first trimester the results section. GC & CHLAMYDIA Routine 12/29/2018 9:20 AM Supervision of high Results for this AMPLIFIED ASSAY CDT risk in procedu re are in first trimester the results section. POCT TEST Routine 12/29/2018 8:30 AM Missed menses Results for this CDT procedure are i n the results section. documented in this encounter Results WORKUP, BLOOD BANK (12/29/2018 9:40 AM CDT) Pathologist Sig nature ABO & RH O Positive LAB Comment: Performed at [facility] Laboratory Services - [facility] Blood Bank [address] [place] [phone] Toll Free: [phone] CLIA No. [id number] IAT Negative LAB Comment: Performed at [facility] Laboratory Services - [facility] Blood Bank [address] [place] [phone] Toll Free: [phone] CLIA No. [id number] Specimen Blood - VENOUS Performing Organization Address City/State/Zipcode Phone Number BLD LAB RUBELLA SCREEN IGG (12/29/2018 9:40 AM CDT) Pathologist Sig nature Rubella screen IgG Positive Negative [facility] LABORATORY SERVIC ES Specimen Blood Narrative Performed At Positive - Indicates the patient was exposed to Rubell a [facility] SERVICES through infection or vaccination. Negative - Indicates the patient could be susceptible to Rubella infection. Equivocal - A second specimen should be sent. Performing Organization Address City/State/Zipcode Phone Number [facility] CLIA: [id number], [address] [place] [address] [address] [facility] VZV ANTIBODY SCREEN (12/29/2018 9:40 AM CDT) Pathologist Sig nature VZV IgG antibody Positive Negative [facility] SERVICES Specimen Blood Narrative Performed At Positive - Indicates the patient was exposed to VZV th rough [facility] SERVICES infection or vaccination. Negative - Indicates the patient could be susceptible to VZV infection. Equivocal - A second specimen should be sent for testi ng. Performing Organization Address [facility] Phone Number [facility] CLIA: [id number], [address] [place] [address] [address] [facility] URINE CULTURE (12/29/2018 9:40 AM CDT) URINE CULTURE < 10,000 CFU/mL mixed [facility] LAB[facility] aerobic organisms - SERVICES suggests endogenous microbial contamination Specimen Urine - URINE, CLEAN CATCH Performing Organization Address [facility] Center[facility]t Phone Number [facility] CLIA: [id number], [address] [place] [address] [address] [facility] HEPATITIS B SURFACE ANTIGEN (12/29/2018 9:40 AM CDT) HBsAg HEPATITIS B Negative [facility] SURFACE ANTIGEN SERVICES NEGATIVE HBsAg 0.05 [facility] Semi-Quantitative SERVICES Specimen Blood Performing Organization Address [facility] Phone Number [facility] CLIA: [id number], [address] [place] [address] [address] [facility] HCV ANTIBODY (12/29/2018 9:40 AM CDT) Pathologist Sig nature HCV Ab NEGATIVE [facility] SERVICES HCV Semi-Quantitative 0.01 [facility] SERVICES Specimen Blood Performing Organization Address [facility] Phone Number [facility] CLIA: [id number], [address] [place] [address] [address] [facility] ADC, CLC OR LCC ONLY - HIV TYPE 1 AND 2 ANTIBODY SCREEN WITH P24 (12/29/2018 9:40 AM CDT) Pathologist Sig nature HIV 1/2 AG/AB NON-REACTIVE Nonreactive [facility] Specimen Blood Performing Organization Address City/[facility] Cent[facility]ode Phone Number [facility] CLIA: [id number], [address] [place] [address] ADC OR PAMELA ONLY - RPR (12/29/2018 9:40 AM CDT) Pathologist Sig nature RPR (Qualitative) NON-REACTIVE Nonreactive [facility] Specimen Blood Performing Organization Address City/[facility]/Zipcode Phone Number [facility] CLIA: [id number], [address] [place], [place] [address] GC & CHLAMYDIA AMPLIFIED ASSAY (12/29/2018 9:20 AM CDT) Pathologist Sig nature C. trachomatis Nucleic NEGATIVE Negative [facility] LAB[facility] Acid SERVICES N. gonorrhoeae Nucleic NEGATIVE Negative [facility] Acid SERVICES Specimen Urine - URINE, UNSPECIFIED SOURCE Performing Organization Address City/[facility]/Zipcode Phone Number [facility] CLIA: [id number], [address] [place] [address] [address] [facility] ADC / LCC - DRUG SCREEN TRIAGE (12/29/2018 9:20 AM CDT) BENZO U Negative Negative [facility] ELSIE U Negative Negative [facility] AMPHET Negative Negative [facility] THC Presumptive Positive Negative [facility] (A)Comment: HOSPITAL Confirmation of LABORATORY Presumptive Positive THC result requires physician order. METHADONE Negative Negative [facility] Meth U Negative Negative [facility] OPIATES Negative Negative [facility] Cocaine Metabolite Negative Negative [facility] PROPOXY Negative Negative [facility] Tric U Negative Negative [facility] PCP Negative Negative [facility] OXYCOD Negative Negative [facility] Specimen Urine - URINE, UNSPECIFIED SOURCE Narrative Performed At Urine Drug Cutoff Ranges [facility] Benzodiazepines: 150 ng/mL Barbiturates: 200 ng/mL Amphetamine: 500 ng/mL Cannabinoids: 50ng/mL Methadone: 200 ng/mL Methamphetamine: 500 ng/mL Opiates: 100 ng/mL or 2000 ng/mL Cocaine: 150 ng/mL Propoxyphene:300 ng/mL Tricyclics:300 ng/mL Oxycodone: 100 ng/mL PCP: 25 ng/mL The results are to be used only for medical (i.e., treatment) purposes. Unconfirmed screening results must not be used for non-medical purposes (e.g., employment testing, legal testing). Performing Organization Address City/State/Zipcode Phone Number [facility] CLIA: [id number], [address] [place], [place] [address] POCT TEST (12/29/2018 8:30 AM CDT) Pathologist Sig nature POCT PREG Positive On board controls acceptable Yes with C Line POCT PREG LOT # POCT PREG TEST DATE Specimen Urine - URINE, UNSPECIFIED SOURCE Narrative Performed At [facility] development and interpretation of all internal controls documented in this encounter Visit Diagnoses Diagnosis Supervision of high risk in rst trimester - Primary Unspecified high-risk Missed menses Absence of menstruation Obesity (BMI 30-39.9) Obesity, unspecified Depression, unspecified depression type documented in this encounter Insurance Payer Benefit Plan / Subscriber ID Effective Phone Address T [facility] xxxxxxxxx 2017-Prese [address] Medic aid HEALTH CHOICE - [place] [id number] 1 MANAGED MEDICAID [place], [place] [phone] documented as of this encounter
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
--- OUTSIDE RECORDS SUMMARY | 2019-08-12 13:30 | XMS REPORT | Summary of Care ---
:1985 Author Organization [address] [address] Care Team Providers Name Role Phone Eduar Morales Primary Care Provider Rekhi Unavailable Reason for Visit Reason Comments Assessment Encounter Details Date Type Department Care Team Description 01/12/2019 Telephone [facility] Women's Yokasta Corona MD Assessment Healthcare- [address], [place] [address] [address] [place] [address] [phone] Allergies No Known Allergiesdocumented as of this encounter (statuses as of 01/12/2019) Medications Medication Sig Dispensed Refills Start Date [...] as of this encounter (statuses as of 01/12/2019) Active Problems Problem Noted Date Obesity (BMI 30-39.9) 12/29/2018 Estimated Date of Delivery Comments Yes 08/27/2019 documented as of this encounter (statuses as of 01/12/2019) Social History Tobacco Use Types Packs/Day Years [...] & Corona, Wander burks MD Visit Gynecology [address] [place] [phone] Health Maintenance Due Date Last Done Comments PNEUMOCOCCAL 0-64 YEARS COMBINED SERIES (1 of 1 - 1993 PPSV23) DTaP,Tdap,and Td Vaccines (1 - Tdap) 2006 PAP SMEAR 2008 INFLUENZA VACCINE (#1) 2019 documented as of this encounter Results Not on filedocumented in this encounter Insurance Payer Benefit Plan / Subscriber ID Effective Phone Address T [facility] xxxxxxxxx 2016-Prese [address] Medic aid HEALTH CHOICE - HEALTH CHOICE nt [id number] 1 MANAGED MEDICAID [place], [place]ID [id number] [facility] xxxxxxxxx 2017-Prese [address] Medic aid HEALTH CHOICE - HEALTH CHOICE nt [id number] 1 MANAGED MEDICAID [place], [place] MEDICAID [phone] documented as of this encounter
--- OUTSIDE RECORDS SUMMARY | 2019-08-12 13:30 | XMS REPORT | Summary of Care ---
:1985 Author Organization [facility] Address [address] [place] [address] Care Team Providers Name Role Phone Eduar Morales Primary Care Provider Ashakhrufino Unavailable Reason for Referral (Routine) Status Reason Specialty Diagnoses / Referred By Referred To Procedures Contact Contact New Request Maternal Diagnoses Supervision of high risk in first trimester Yokasta Corona Medicine Procedures CONSULT/REFERRAL MATERNAL MEDICINE FACULTY/FELLOW Preferred location: Beto NGUYEN [address] [place] [phone] Reason for Visit Reason Comments Rx Concern/Question Encounter Details Date Type Department Care Team Description 01/20/2019 Telephone [facility] Women's Yokasta Corona MD Rx Concern/Question Healthcare- [address] [address] [place], [place] [phone] [address] [phone] Allergies No Known Allergiesdocumented as of this [...] Treatment Date Type Specialty Care Team Description 01/30/2019 Routine OB Satell[facility] Isaias Mariee Rmchp Visit [facility] 02/02/2019 Nurse Visit Obstetrics & Nurse, [facility] Women's Gynecology Health 02/16/2019 Routine Obstetrics & CoronaWander galeas MD Visit Gynecology [address] [place] [phone] Health Maintenance Due Date Last Done Comments PNEUMOCOCCAL 0-64 YEARS COMBINED SERIES (1 of 1 - 1993 PPSV23) DTaP,Tdap,and Td Vaccines (1 - Tdap) 2006 PAP SMEAR 2008 INFLUENZA VACCINE (#1) 2019 documented as of this encounter Results Not on filedocumented in this encounter Visit Diagnoses Diagnosis Supervision of high risk in rst trimester - Primary Unspecified high-risk documented in this encounter Insurance Payer Benefit Plan / Subscriber ID Effective Phone Address T ype Group Dates [facility] xxxxxxxxx 2016-[address] Medic aid HEALTH CHOICE - HEALTH CHOICE nt [id number] 1 MANAGED MEDICAID [place], [place] [id number] [facility] xxxxxxxxx 2017-[address] Medic aid HEALTH CHOICE - HEALTH CHOICE nt [id number] 1 MANAGED MEDICAID [place], [place] [phone] documented as of this encounter
--- OUTSIDE RECORDS SUMMARY | 2019-08-12 13:31 | XMS REPORT | Clinical Summary ---
:1985 Author Organization [facility] - [facility] Address [address] [place] [id number] Care Team Providers Name Role Phone Eduar Morales Devang Primary Care Provider Rekhi Unavailable Allergies No Known Allergies Medications Medication Sig Dispensed Refills Start Date End Date Status clonazePAM 1 mg tablet 0 12/22/2018 Active PRISTIQ 50 mg 24 hr 0 12/20/2018 Active tablet methocarbamol 750 mg 0 12/28/2018 Active tablet dextroamphetamine-amphet 0 12/26/2018 Active amine 20 mg tablet vit Take by mouth. 0 A ctive calc,iron,folic ( VITAMIN ORAL) nutritional Take by mouth. 0 Ac tive supplement/fiber (JUICE PLUS FIBRE ORAL) proMETHazine 25 mg Take 1 tablet by 20 tablet 0 01/12/2019 Active tablet mouth every 6 (six) hours as needed for Nausea and Vomiting (N/V). desvenlafaxine succinate Take 1 tablet by 30 tablet 2 02/03/20 19 Active (PRISTIQ) 25 mg Tb24 mouth daily. Pt to take with 50mg Pristiq for a total of 75mg diphenhydrAMINE 25 mg Take one tablet 90 tablet 1 02/13/2019 Active tabletIndications: three times a Generalized anxiety day as needed disorder for anxiety ARIPiprazole 15 mg Take 1 tablet by 30 tablet 1 02/13/2019 Active tabletIndications: mouth daily. Bipolar II disorder Active Problems Problem Noted Date Obesity (BMI 30-39.9) 12/29/2018 Estimated Date of Delivery Comments Yes 08/27/2019 Encounters Date Type Specialty Care Team Description 02/07/2019 Routine Obstetrics & Vanaphan, Supervision of high risk in first trimester (Primary Dx); Visit Joseph Garcia PA-C 11 weeks gestat ion of ; Postcoital blee ding 02/07/2019 Telephone Obstetrics & Corona, Assessment Joseph Templeton MD 02/02/2019 Nurse Visit Obstetrics & Corona, Supervision of high Joseph Templeton MD risk in Nurse, [facility] first trimester Women's Health (Primary Dx) 02/02/2019 Telephone Obstetrics & Corona, Notification Joseph Templeton MD 01/30/2019 Routine OB Satellites Hwang, Melissa, Supervi lala of high risk , antepartum (Primary Dx); Visit Bipolar 1 disorder; Faculty, Isaias Current mild ep isode of major depressive disorder without prior episode [facility] 01/27/2019 Orders Only Doctor Unassigned, Mershon 01/23/2019 Telephone Obstetrics & Corona, Orders Joseph Templeton MD 01/20/2019 Telephone Obstetrics & Corona, Rx Concern/Ques tion Joseph Templeton MD 01/19/2019 Routine Obstetrics & Corona, Supervision of high risk in first trimester (Primary Dx); Visit Joseph Templeton MD 8 weeks gestati on of ; Depression, uns pecified depression type; Obesity (BMI 30 -39.9) 01/12/2019 Telephone Obstetrics & Corona, Assessment Joseph Templeton MD 01/10/2019 Telephone Obstetrics & Corona, Assessment Joseph Templeton MD 01/06/2019 Telephone Obstetrics & Corona, Results Joseph Templeton MD 01/06/2019 Telephone Obstetrics & Chloe, Results Joseph Templeton MD 12/29/2018 Mail Sorting Supervisor Visit Phlebotomy Chloe, Supervision of high Yokasta MD risk in 2, [facility] Lab first trimester 12/29/2018 Initial Obstetrics & Corona, Supervision of high risk in first trimester (Primary Dx); Visit Joseph Templeton MD Missed menses; Obesity (BMI 30 -39.9); Depression, uns pecified depression type 12/29/2018 Orders Only Doctor Unassigned, Mershon from Last 3 Months Family History Medical History Relation Name Comments Psychiatry Brother Bipolar Depression Father Psychiatry Father anxiety Depression Mother Diabetes Mother Psychiatry Mother Bipolar Arthritis NoFHx Asthma NoFHx defects NoFHx Breast Cancer NoFHx Cancer NoFHx Colon Cancer NoFHx Genetic NoFHx Heart NoFHx High cholesterol NoFHx Hypertension NoFHx Mental retardation NoFHx Neurological NoFHx Osteoporosis NoFHx Ovarian Cancer NoFHx Uterine Cancer NoFHx Relation Name Status Comments Brother Father Alive Mother Alive Social History Tobacco Use Types Packs/Day Years [...] Travel End No recent travel history available. Last Filed Vital Signs Vital Sign Reading Time Taken Comments Blood Pressure 126/89 02/13/2019 8:08 AM CDT Pulse 86 02/13/2019 8:08 AM CDT Temperature 37 C (98.6 F) 02/07/2019 9:30 AM CDT Respiratory Rate 18 02/13/2019 8:08 AM CDT Oxygen Saturation - - Inhaled Oxygen Concentration - - Weight 86.5 kg (190 lb 11.2 oz) 02/13/2019 8:08 AM CDT Height 167.6 cm (5' 6") 02/13/2019 8:08 AM CDT Body Mass Index 30.78 02/13/2019 8:08 AM CDT Plan of Treatment Date Type Specialty Care Team Description 02/16/2019 Routine Obstetrics & Corona, aWnder burks MD Visit Gynecology [address] [place] [phone] 02/17/2019 Mail Sorting Supervisor Visit Maternal Medicine 02/17/2019 Mail Sorting Supervisor Visit OB Satellites Lab/Shaina Amaral-Rmchp 02/27/2019 Routine OB Satellites FacultyIsaias Rmchp Visit [facility] Health Maintenance Due Date Last Done Comments PNEUMOCOCCAL 0-64 YEARS COMBINED 1993 SERIES (1 of 1 - PPSV23) DTaP,Tdap,and Td Vaccines (1 - 2006 Tdap) PAP SMEAR 2008 INFLUENZA VACCINE (#1) 2020 Postponed from 01/01/2019 (Patient Refused ) Procedures Procedure Name Priority Date/Time Associated Comments Diagnosis POCT URINALYSIS W/O Routine 01/30/2019 2:17 Supervision of hi gh Results for this SPECIFIC GRAVITY PM CDT risk , procedur e are in antepartum the results section. EXTERNAL PROVIDER Routine 01/27/2019 12:01 RECORDS AM CDT POCT URINALYSIS W/O Routine 01/19/2019 8:47 8 weeks gestation Results for this SPECIFIC GRAVITY AM CDT of procedure a re in the results section. CBC WITH DIFFERENTIAL Routine 12/29/2018 9:40 Supervision of high Results for this AM CDT risk in procedure are in first trimester the results section. RUBELLA SCREEN IGG Routine 12/29/2018 9:40 Supervision of hig h Results for this AM CDT risk in procedure are in first trimester the results section. VZV ANTIBODY SCREEN Routine 12/29/2018 9:40 Supervision of hi gh Results for this AM CDT risk in procedure are in first trimester the results section. URINE CULTURE Routine 12/29/2018 9:40 Supervision of high Res ults for this AM CDT risk in procedure are in first trimester the results section. HEPATITIS B SURFACE Routine 12/29/2018 9:40 Supervision of hi gh Results for this ANTIGEN AM CDT risk in procedure are in first trimester the results section. HCV ANTIBODY Routine 12/29/2018 9:40 Supervision of high Resu lts for this AM CDT risk in procedure are in first trimester the results section. CBC WITH DIFF Routine 12/29/2018 9:40 Supervision of high Res ults for this AM CDT risk in procedure are in first trimester the results section. ADC, CLC OR LCC ONLY - Routine 12/29/2018 9:40 Supervision of high Results for this HIV TYPE 1 AND 2 AM CDT risk in proced ure are in ANTIBODY SCREEN WITH first trimester the results P24 section. ADC OR PAMELA ONLY - Routine 12/29/2018 9:40 Supervision of high Results for this RPR AM CDT risk in procedure are in first trimester the results section. WORKUP, BLOOD Routine 12/29/2018 9:40 Supervision of high Results for this BANK AM CDT risk in procedure are in first trimester the results section. GC & CHLAMYDIA Routine 12/29/2018 9:20 Supervision of high Re sults for this AMPLIFIED ASSAY AM CDT risk in procedu re are in first trimester the results section. ADC / LCC - DRUG SCREEN Routine 12/29/2018 9:20 Supervision o f high Results for this TRIAGE AM CDT risk in procedure are in first trimester the results section. POCT TEST Routine 12/29/2018 8:30 Missed menses Res ults for this AM CDT procedure are i n the results section. [facility] PATIENT FINANCIAL Routine 12/29/2018 8:08 POLICY AM CDT NO SHOW OR MISSED Routine 12/29/2018 8:06 APPOINTMENT POLICY AM CDT ACKNOWLEDGEMENT NOTICE OF PRIVACY Routine 12/29/2018 8:06 PRACTICES AM CDT CONSENT TO CONTACT FOR Routine 12/29/2018 8:05 R esults for this VOLUNTARY RESEARCH AM CDT procedure are in the results section. CONSENT/REFUSAL FOR Routine 12/29/2018 8:05 DIAGNOSIS AND TREATMENT AM CDT ASSIGNMENT OF BENEFITS Routine 12/29/2018 8:05 AM CDT AUTHORIZATION TO Routine 12/29/2018 12:01 RELEASE PHI TO [facility] AM CDT from Last 3 Months Results POCT URINALYSIS W/O SPECIFIC GRAVITY (01/30/2019 2:17 PM CDT)Only the most recent of2 resultswithin the time period is included. Pathologist Sig nature POCT PH U 5 5 - 8 mg/dl POCT U LEUK EST 1+ Negative - Negative POCT U NIT Neg Negative - Negative POCT U PROT Trace Negative - Negative POCT U GLU Neg Negative - Negative POCT U KETONE None Negative - Negative POCT U BLD . Negative - Negative Specimen Urine - URINE, CLEAN CATCH EXTERNAL PROVIDER RECORDS (01/27/2019 12:01 AM CDT) Specimen Performing Organization Address City/State/Zipcode Phone Number HIM CBC WITH DIFFERENTIAL (12/29/2018 9:40 AM CDT) Pathologist Sig nature WBC 9.30 4.30 - 11.10 [facility] 10*3/L [facility] RBC 4.48 3.93 - 5.25 [facility] 10*6/L [facility] HGB 12.3 11.6 - 15.0 [facility] g/dL [facility] HCT 39.2 35.7 - 45.2 % [facility] MCV 87.5 80.6 - 95.5 fL [facility] MCH 27.5 25.9 - 32.8 pg [facility] MCHC 31.4 (L) 31.6 - 35.1 [facility] g/dL [facility] RDW-SD 44.4 39.0 - 49.9 fL [facility] RDW-CV 13.9 12.0 - 15.5 % [facility] PLT 250 166 - 358 [facility] 10*3/L [facility] MPV 10.9 9.5 - 12.9 fL [facility] NRBC/100 WBC 0.0 0.0 - 10.0 /100 [facility] WBCs [facility] NRBC x10^3 <0.01 10*3/L [facility] GRAN MAT (NEUT) % 54.6 % [facility] IMM GRAN % 0.40 % [facility] LYMPH % 37.7 % [facility] MONO % 4.6 % [facility] EOS % 2.2 % [facility] BASO % 0.5 % [facility] GRAN MAT x10^3(ANC) 5.07 1.88 - 7.09 [facility] 10*3/uL [facility] IMM GRAN x10^3 0.04 0.00 - 0.06 [facility] 10*3/uL [facility] LYMPH x10^3 3.51 (H) 1.32 - 3.29 [facility] 10*3/uL [facility] MONO x10^3 0.43 0.33 - 0.92 [facility] 10*3/uL [facility] EOS x10^3 0.20 0.03 - 0.39 [facility] 10*3/uL [facility] BASO x10^3 0.05 0.01 - 0.07 [facility] 10*3/uL [facility] Specimen Blood Performing Organization Address City/State/Zipcode Phone Number [facility] CLIA: [id number], [address] [place], [place] [address] ADC, [facility] OR [facility] ONLY - HIV TYPE 1 AND 2 ANTIBODY SCREEN WITH P24 (12/29/2018 9:40 AM CDT) Pathologist Sig nature HIV 1/2 AG/AB Nonreactive Nonreactive [facility] Specimen Blood Performing Organization Address City/[facility]/Zipcode Phone Number [facility] CLIA: [id number], [address] [place], [place] [address] ADC OR PAMELA ONLY - RPR (12/29/2018 9:40 AM CDT) Pathologist Sig nature RPR (Qualitative) Nonreactive Nonreactive [facility] Specimen Blood Performing Organization Address City/[facility] Phone Number [facility] CLIA: [id number], [address] [place] [address] URINE CULTURE (12/29/2018 9:40 AM CDT) URINE CULTURE < 10,000 CFU/mL mixed [facility] LABORATORY aerobic organisms - SERVICES suggests endogenous microbial contamination Specimen Urine - URINE, CLEAN CATCH Performing Organization Address [facility] Phone Number [facility] LABORATORY SERVICES CLIA: [id number], [address] [place] [address] [address] [facility] WORKUP, BLOOD BANK (12/29/2018 9:40 AM CDT) Pathologist Sig nature ABO & RH O Positive LAB Comment: Performed at [facility] Laboratory Services - [facility] Blood Bank [address] [place], [place] [phone] Toll Free: [phone] CLIA No. [id number] IAT Negative LAB Comment: Performed at [facility] Laboratory Services - [facility] Blood Bank [address] [place], [place] [phone] Toll Free: [phone] CLIA No. [id number] Specimen Blood - VENOUS Performing Organization Address City/[facility] Phone Number BLD LAB HCV ANTIBODY (12/29/2018 9:40 AM CDT) Pathologist Sig nature HCV Ab Negative [facility] LABORATORY SERVICES HCV Semi-Quantitative 0.01 [facility] LABORATORY SERVICES Specimen Blood Performing Organization Address City/[facility]/Zipcode Phone Number [facility] LABORATORY SERVICES CLIA: [id number], [address] [place] [address] [address] [facility] HEPATITIS B SURFACE ANTIGEN (12/29/2018 9:40 AM CDT) Pathologist Sig nature HBsAg Negative Negative [facility] LABORATORY SERVICES HBsAg 0.05 [facility] LABORATORY Semi-Quantitative SERVICES Specimen Blood Performing Organization Address City/State/Zipcode Phone Number [facility] LABORATORY SERVICES CLIA: [id number], [address] [place] [address] [address] [facility] VZV ANTIBODY SCREEN (12/29/2018 9:40 AM CDT) Pathologist Sig nature VZV IgG antibody Positive Negative [facility] LABORATORY SERVICES Specimen Blood Narrative Performed At Positive - Indicates the patient was exposed to VZV th rough [facility] LABORATORY SERVICES infection or vaccination. Negative - Indicates the patient could be susceptible to VZV infection. Equivocal - A second specimen should be sent for testi ng. Performing Organization Address City/[facility]/Zipcode Phone Number [facility] LABORATORY SERVICES CLIA: [id number], [address] [place] [address] [address] [facility] RUBELLA SCREEN IGG (12/29/2018 9:40 AM CDT) Pathologist Sig nature Rubella screen IgG Positive Negative [facility] LABORATORY SERVIC ES Specimen Blood Narrative Performed At Positive - Indicates the patient was exposed to Rubell a [facility] LABORATORY SERVICES through infection or vaccination. Negative - Indicates the patient could be susceptible to Rubella infection. Equivocal - A second specimen should be sent. Performing Organization Address City/[facility]/Zipcode Phone Number [facility] LABORATORY SERVICES CLIA: [id number], [address] [place] [address] [address] [facility] ADC / LCC - DRUG SCREEN TRIAGE (12/29/2018 9:20 AM CDT) BENZO U Negative Negative [facility] ELSIE U Negative Negative [facility] AMPHET Negative Negative [facility] THC Presumptive Positive Negative [facility] (A)Comment: HOSPITAL Confirmation of LABORATORY Presumptive [...] Barbiturates: 200 ng/mL Amphetamine: 500 ng/mL Cannabinoids: 50 ng/mL Methadone: 200 ng/mL Methamphetamine: 500 ng/mL Opiates: 100 ng/mL or 2000 ng/mL Cocaine: 150 ng/mL Propoxyphene: 300 ng/mL Tricyclics: 300 ng/mL Oxycodone: 100 ng/mL PCP: 25 ng/mL The results are to be used only for medical (i.e., treatment) purposes. Unconfirmed screening results must not be used for non-medical purposes (e.g., employment testing, legal testing). Performing Organization Address City/State/Zipcode Phone Number [facility] CLIA: [id number], [address] [place], [place] [address] [facility] [address] GC & CHLAMYDIA AMPLIFIED ASSAY (12/29/2018 9:20 AM CDT) Pathologist Sig nature C. trachomatis Nucleic Negative Negative [facility] LABORATORY Acid SERVICES N. gonorrhoeae Nucleic Negative Negative [facility] LABORATORY Acid SERVICES Specimen Urine - URINE, UNSPECIFIED SOURCE Performing Organization Address City/State/[facility] Phone Number [facility]ORATORY SERVICES CLIA: [id number], [address] [place], [place] [address] [facility] POCT TEST (12/29/2018 8:30 AM CDT) Pathologist Sig nature POCT PREG Positive On board controls acceptable Yes with C Line POCT PREG LOT # POCT PREG TEST DATE Specimen Urine - URINE, UNSPECIFIED SOURCE Narrative Performed At accurate development and interpretation of all internal controls [facility] PATIENT FINANCIAL POLICY (12/29/2018 8:08 AM CDT) Specimen Performing Organization Address City/State/Zipcode Phone Number HIM NO SHOW OR MISSED APPOINTMENT POLICY ACKNOWLEDGEMENT (12/29/2018 8:06 AM CDT) Specimen Performing Organization Address City/State/Zipcode Phone Number HIM NOTICE OF PRIVACY PRACTICES (12/29/2018 8:06 AM CDT) Specimen Performing Organization Address City/State/Zipcode Phone Number HIM CONSENT TO CONTACT FOR VOLUNTARY RESEARCH (12/29/2018 8:05 AM CDT) Pathologist Sig nature Consent To Contact For Voluntary Yes HIM Research Specimen Performing Organization Address City/State/[facility] Phone Number HIM CONSENT/REFUSAL FOR DIAGNOSIS AND TREATMENT (12/29/2018 8:05 AM CDT) Specimen Performing Organization Address City/State/Zipcode Phone Number HIM ASSIGNMENT OF BENEFITS (12/29/2018 8:05 AM CDT) Specimen Performing Organization Address City/State/Zipcode Phone Number HIM AUTHORIZATION TO RELEASE PHI TO [facility] (12/29/2018 12:01 AM CDT) Specimen Performing Organization Address City/State/Zipcode Phone Number HIM from Last 3 Months Insurance Payer Benefit Plan / Subscriber ID Effective Phone Address T ype Group Dates [facility] xxxxxxxxx 2017-Prese [address] Medic aid HEALTH CHOICE - HEALTH [place] [id number] 1 MANAGED MEDICAID [place], [place] MEDICAID [phone]
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
--- OUTSIDE RECORDS SUMMARY | 2019-08-12 13:32 | XMS REPORT | Clinical Summary ---
:1985 Author Organization [facility] - [facility] Address [address] [place] [address] Care Team Providers Name Role Phone Eduar [...] ding 02/07/2019 Telephone Obstetrics & Corona, Assessment Jospeh Templeton MD 02/02/2019 Nurse Visit Obstetrics & Corona, Supervision of high Joseph Templeton MD risk in Nurse, [facility] first trimester Women's Health (Primary Dx) 02/02/2019 Telephone Obstetrics & Corona, Notification Joseph Templeton MD 01/30/2019 Routine OB Satellites Hwang, Melissa, Supervi lala of high risk , antepartum (Primary Dx); Visit Bipolar 1 disorder; Faculty, Isaias Current mild ep isode of major depressive disorder without prior episode [facility] 01/27/2019 Orders Only Doctor Unassigned, [place] 01/23/2019 Telephone Obstetrics & Corona, Orders Joseph [...] & Chloe, Results Joseph Templeton MD 12/29/2018 Receivable Executive Visit Phlebotomy Chloe, Supervision of high Yokasta MD risk in 2, Ad[facility] Lab first trimester 12/29/2018 Initial Obstetrics & Corona, Supervision of high risk in first trimester (Primary Dx); Visit Joseph Templeton MD Missed menses; Obesity (BMI 30 -39.9); Depression, uns pecified depression type 12/29/2018 Orders Only Doctor Unassigned, [place] from Last 3 Months Family History Medical [...] Team Description 02/16/2019 Routine Obstetrics & Corona, Wander burks MD Visit Gynecology [address] [place] [phone] 02/17/2019 Receivable Executive Visit Maternal Medicine 02/17/2019 Receivable Executive Visit OB Satellites Lab/Shaina Amaral-Rmchp 02/27/2019 Routine OB Satellites FacultyIsaias Rmchp Visit [employer] Health Maintenance Due Date Last Done Comments [...] procedure are i n the results section. [facility] PATIENT FINANCIAL Routine 12/29/2018 8:08 POLICY AM [...] TO Routine 12/29/2018 12:01 RELEASE PHI TO [facility] AM CDT from Last 3 Months Results [...] Sig nature WBC 9.30 4.30 - 11.10 [facility] 10*3/L [facility] RBC 4.48 3.93 - 5.25 [facility] 10*6/L [facility] HGB 12.3 11.6 - 15.0 [facility] g/dL [facility] HCT 39.2 35.7 - 45.2 % [facility] MCV 87.5 80.6 - 95.5 fL [facility] MCH 27.5 25.9 - 32.8 pg [facility] MCHC 31.4 (L) 31.6 - 35.1 [facility] g/dL [facility] RDW-SD 44.4 39.0 - 49.9 fL [facility] RDW-CV 13.9 12.0 - 15.5 % [facility] PLT 250 166 - 358 [facility] 10*3/L [facility] MPV 10.9 9.5 - 12.9 fL [facility] NRBC/100 WBC 0.0 0.0 - 10.0 /100 [facility] WBCs [facility] NRBC x10^3 <0.01 10*3/L [facility] GRAN MAT (NEUT) % 54.6 % [facility] IMM GRAN % 0.40 % [facility] LYMPH % 37.7 % [facility] MONO % 4.6 % [facility] EOS % 2.2 % [facility] BASO % 0.5 % [facility] GRAN MAT x10^3(ANC) 5.07 1.88 - 7.09 [facility] 10*3/uL [facility] IMM GRAN x10^3 0.04 0.00 - 0.06 [facility] 10*3/uL [facility] LYMPH x10^3 3.51 (H) 1.32 - 3.29 [facility] 10*3/uL [facility] MONO x10^3 0.43 0.33 - 0.92 [facility] 10*3/uL [facility] EOS x10^3 0.20 0.03 - 0.39 [facility] 10*3/uL [facility] BASO x10^3 0.05 0.01 - 0.07 [facility] 10*3/uL [facility] Specimen Blood Performing Organization Address City/State/Zipcode Phone Number [facility] CLIA: [id number], [address] [place], [place] [address] ADC, [facility] OR [facility] ONLY - HIV TYPE 1 AND 2 ANTIBODY SCREEN WITH P24 (12/29/2018 9:40 AM CDT) Pathologist Sig nature HIV 1/2 AG/AB Nonreactive Nonreactive [facility] Specimen Blood Performing Organization Address City/[facility]/Zipcode Phone Number [facility] CLIA: [id number], [address] [place], [place] [address] ADC OR [facility] ONLY - RPR (12/29/2018 9:40 AM CDT) Pathologist Sig nature RPR (Qualitative) Nonreactive Nonreactive [facility] Specimen Blood Performing Organization Address City/[facility] Phone Number [facility] CLIA: [id number], [address] [place] [address] URINE CULTURE (12/29/2018 9:40 AM CDT) URINE CULTURE < 10,000 CFU/mL mixed [facility]ORATORY aerobic organisms - SERVICES suggests endogenous microbial contamination Specimen Urine - URINE, CLEAN CATCH Performing Organization Address [facility] Phone Number [facility]ORATORY SERVICES CLIA: [id number], [address] [place] [address] [facility] WORKUP, BLOOD BANK (12/29/2018 9:40 AM CDT) Pathologist Sig nature ABO & RH O Positive LAB Comment: Performed at [facility] Laboratory Services - [facility] Blood Bank [address] [place], [place] [id number] Toll Free: [phone] CLIA No. [id number] IAT Negative LAB Comment: Performed at [facility] Laboratory Services - [facility] Blood Bank [address] [place], [place] [id number] Toll Free: [phone] CLIA No. [id number] Specimen Blood - VENOUS Performing Organization Address City/[facility] Phone Number BLD LAB HCV ANTIBODY (12/29/2018 9:40 AM CDT) Pathologist Sig nature HCV Ab Negative [facility]ORATORY SERVICES HCV Semi-Quantitative 0.01 [facility] LABORATORY SERVICES Specimen Blood Performing Organization Address City/[facility]/Zipcode Phone Number [facility]OR[facility]ORY SERVICES CLIA: [id number], [address] [place] [address] [facility] HEPATITIS B SURFACE ANTIGEN (12/29/2018 9:40 AM CDT) Pathologist Sig nature HBsAg Negative Negative [facility]ORATORY SERVICES HBsAg 0.05 [facility] LABORATORY Semi-Quantitative SERVICES Specimen Blood Performing Organization Address City/State/Zipcode Phone Number [facility]ORATORY SERVICES CLIA: [id number], [address] [place] [address] [facility] VZV ANTIBODY SCREEN (12/29/2018 9:40 AM CDT) Pathologist Sig nature VZV IgG antibody Positive Negative [facility]ORATORY SERVICES Specimen Blood Narrative Performed At Positive - Indicates the patient was exposed to VZV th rough [facility]ORY SERVICES infection or vaccination. Negative - Indicates the patient could be susceptible to VZV infection. Equivocal - A second specimen should be sent for testi ng. Performing Organization Address City/[facility]/Zipcode Phone Number [facility]ORY SERVICES CLIA: [id number], [address] [place] [address] [facility] RUBELLA SCREEN IGG (12/29/2018 9:40 AM CDT) Pathologist Sig nature Rubella screen IgG Positive Negative [facility] LABORATORY SERVIC ES Specimen Blood Narrative Performed At Positive - Indicates the patient was exposed to Rubell a [facility]ORATORY SERVICES through infection or vaccination. Negative - Indicates the patient could be susceptible to Rubella infection. Equivocal - A second specimen should be sent. Performing Organization Address City/[facility]/Zipcode Phone Number [facility]ORY SERVICES CLIA: [id number], [address] [place] [address] [facility] ADC / LCC - DRUG SCREEN TRIAGE (12/29/2018 9:20 AM CDT) BENZO U Negative Negative [facility] ELSIE U Negative Negative [facility] AMPHET Negative Negative [facility] THC Presumptive Positive Negative [facility] (A)Comment: HOSPITAL Confirmation of LABORATORY Presumptive Positive THC result requires physician order. METHADONE Negative Negative [facility] Meth U Negative Negative [facility] OPIATES Negative Negative [facility] Cocaine Metabolite Negative Negative [facility] PROPOXY Negative Negative [facility] Tric U Negative Negative [facility] PCP Negative Negative [facility] OXYCOD Negative Negative [facility] Specimen Urine - URINE, UNSPECIFIED SOURCE Narrative Performed At Urine Drug Cutoff Ranges [facility] Benzodiazepines: 150 ng/mL Barbiturates: 200 [...] testing). Performing Organization Address City/State/Zipcode Phone Number [facility] CLIA: [id number], [address] [place], [place] [address] [facility] [address] GC & CHLAMYDIA AMPLIFIED ASSAY (12/29/2018 9:20 AM CDT) Pathologist Sig nature C. trachomatis Nucleic Negative Negative [facility] LABORATORY Acid SERVICES N. gonorrhoeae Nucleic Negative Negative [facility] LABORATORY Acid SERVICES Specimen Urine - URINE, UNSPECIFIED SOURCE Performing Organization Address City/State/[facility] Phone Number [facility]ORY SERVICES CLIA: [id number], [address] [place], [place] [address] [facility] POCT TEST (12/29/2018 8:30 AM CDT) Pathologist Sig nature POCT PREG Positive On board controls acceptable Yes with C Line POCT PREG LOT # POCT PREG TEST DATE Specimen Urine - URINE, UNSPECIFIED SOURCE Narrative Performed At accurate development and interpretation of all internal controls [facility] PATIENT FINANCIAL POLICY (12/29/2018 8:08 AM CDT) [...] Yes HIM Research Specimen Performing Organization Address City/State/[facility] Phone Number HIM CONSENT/REFUSAL FOR DIAGNOSIS AND TREATMENT (12/29/2018 8:05 AM CDT) Specimen Performing Organization Address City/State/Zipcode Phone Number HIM ASSIGNMENT OF BENEFITS (12/29/2018 8:05 AM CDT) Specimen Performing Organization Address City/State/Zipcode Phone Number HIM AUTHORIZATION TO RELEASE PHI TO [facility] (12/29/2018 12:01 AM CDT) Specimen Performing Organization Address City/State/Zipcode Phone Number HIM from Last 3 Months Insurance Payer Benefit Plan / Subscriber ID Effective Phone Address T ype Group Dates [facility] xxxxxxxxx 2017-Prese [address] Medic aid HEALTH CHOICE - HEALTH [place]ICE nt [id number] 1 MANAGED MEDICAID [place], [place] MEDICAID [id number]
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
--- OUTSIDE RECORDS SUMMARY | 2019-08-12 13:33 | XMS REPORT | Summary of Care ---
:1985 Author Organization [facility] - [address] [address] Care Team Providers Name Role Phone Pal Serna Unavailable Yokasta Corona MD Primary Care Provider Reason for Visit Reason Comments Results Encounter Details Date Type Department Care Team Description 06/10/2019 Telephone [facility] Women's Yokasta Corona MD Results Healthcare- [address], [place] [address] [address] [place] [address] [phone] Allergies No Known Allergiesdocumented as of this encounter (statuses as of 06/12/2019) Medications Medication Sig Dispensed Refills Start Date [...] as needed for Nausea and Vomiting (N/V). ferrous sulfate (IRON, Take 1 tablet by 60 tablet 2 06/10/2019 Active FERROUS SULFATE,) 325 mg mouth 2 (two) (65 mg iron) times daily. tabletIndications: Anemia affecting , antepartum ascorbic acid, vitamin Take 1 tablet by 90 tablet 2 06/10/2019 Active C, 500 mg mouth 3 (three) tabletIndications: times daily. Anemia affecting , antepartum documented as of this encounter (statuses as of 06/12/2019) Active Problems Problem Noted Date Obesity (BMI 30-39.9) 12/29/2018 Estimated Date of Delivery Comments Yes 08/27/2019 documented as of this encounter (statuses as of 06/12/2019) Immunizations Name Administration Dates Next Due TDAP (ADACEL) VACCINE 06/09/2019 documented as of this encounter Social History Tobacco Use Types Packs/Day Years [...] Treatment Date Type Specialty Care Team Description 06/23/2019 Routine Obstetrics & Corona, Wander burks MD Visit Gynecology [address] [place] [phone] 07/10/2019 Jewel Gauger Visit Maternal NawafirahNilesh, Medicine [address] [place], [place] [address] 08/07/2019 Jewel Gauger Visit Maternal Nilesh Ramírez, Medicine [address] [place], [place] [address] [phone] Health Maintenance Due Date Last Done Comments PNEUMOCOCCAL 0-64 YEARS COMBINED 1993 SERIES (1 of 1 - PPSV23) PAP SMEAR 2008 INFLUENZA VACCINE (#1) 2020 Postponed from 01/01/2019 (Refused) DTaP,Tdap,and Td Vaccines (2 - 06/09/2029 06/09/2019 Td) documented as of this encounter Results Not on filedocumented in this encounter Visit Diagnoses Diagnosis Encounter to discuss test results - Prim conchis Other specified counseling Anemia affecting , antepartum documented in this encounter Insurance Payer Benefit Plan / Subscriber ID Effective Phone Address [facility] xxxxxxxxx 2017-Prese [address] Medic aid HEALTH CHOICE - HEALTH CHOICE nt [id number] 1 [facility] MEDICAID [place], [place]ICAID [phone] documented as of this encounter
--- OUTSIDE RECORDS SUMMARY | 2019-08-12 13:33 | XMS REPORT | Summary of Care ---
:1985 Author Organization [facility] - [address] [address] Care Team Providers Name Role Phone Pal Serna Unavailable Yokasta Corona MD Primary Care Provider Reason for Visit Reason Comments Results Encounter Details Date Type Department Care Team Description 06/10/2019 Telephone [facility] Women's Yokasta Corona MD Results Healthcare- [address], [place] [address] 208 [place] [address] [phone] Allergies No Known Allergiesdocumented as of this [...] & Corona, Wander burks MD Visit Gynecology [address] [place] [address] 07/10/2019 Insurance Case Manager Visit Maternal NawafirahNilesh, Medicine [address] [place], [place] [address] 08/07/2019 Insurance Case Manager Visit Maternal Nilesh Ramírez, Medicine [address] [place], [place] [address] [phone] Health Maintenance Due Date Last Done Comments [...] Plan / Subscriber ID Effective Phone Address [facility] xxxxxxxxx 2017-Prese [address] Medic aid HEALTH CHOICE - HE[place] CHO[place] nt [id number] 1 [facility] MEDICAID [place] MEDICAID [address] documented as of this encounter
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
--- OUTSIDE RECORDS SUMMARY | 2019-08-12 13:34 | XMS REPORT | Summary of Care ---
:1985 Author Organization [facility] - [address] [address] Care Team Providers Name Role Phone Pal Serna Unavailable Yokasta Corona MD Primary Care Provider Reason for Visit Reason Comments Rx Concern/Question Encounter Details Date Type Department Care Team Description 07/10/[address] [facility]'s Yokasta Corona MD Rx Concern/Question Healthcare- [address] [address] [place], [place] [phone] Allergies No Known Allergiesdocumented as of this encounter (statuses as of 07/11/2019) Medications Medication Sig Dispensed Refills Start Date End Date Status clonazePAM 1 mg tablet 0 12/22/2018 Active methocarbamol 750 mg 0 12/28/2018 Active tablet dextroamphetamine-amphet 0 12/26/2018 Active amine 20 mg tablet vit Take by mouth. 0 A ctive calc,iron,folic ( VITAMIN ORAL) nutritional Take by mouth. 0 Ac tive supplement/fiber (JUICE PLUS FIBRE ORAL) diphenhydrAMINE 25 mg Take one tablet 90 [...] tabletIndications: times daily. Anemia affecting , antepartum desvenlafaxine succinate Take 25 mg by 30 tablet 0 07/06/2019 Active (PRISTIQ) 25 mg mouth daily. [id number]: Depression, unspecified depression type desvenlafaxine succinate Take 1 tablet by 30 tablet 0 07/06/19 20 Active (PRISTIQ) 50 mg 24 hr mouth daily. tabletIndications: Depression, unspecified depression type documented as of this encounter (statuses as of 07/11/2019) Active Problems Problem Noted Date Obesity (BMI 30-39.9) 12/29/2018 Estimated Date of Delivery Comments Yes 08/27/2019 documented as of this encounter (statuses as of 07/11/2019) Immunizations Name Administration Dates Next Due TDAP [...] Treatment Date Type Specialty Care Team Description 07/20/2019 Routine Obstetrics & Corona, Wander burks MD Visit Gynecology [address] [place] [phone] 08/01/2019 Roller Repairer Visit Maternal Medicine 08/07/2019 Roller Repairer Visit Maternal Harirah, Galloway M, Medicine [address] [place] [address] Health Maintenance Due Date Last Done Comments PNEUMOCOCCAL 0-64 YEARS COMBINED 1993 SERIES (1 of 1 - PPSV23) PAP SMEAR 2008 INFLUENZA VACCINE (#1) 2020 Postponed from 01/01/2019 (Refused) DTaP,Tdap,and Td Vaccines (2 - 06/09/2029 06/09/2019 Td) documented as of this encounter Results Not on filedocumented in this encounter Visit Diagnoses Diagnosis Depression, unspecified depression type documented in this encounter Insurance Payer Benefit Plan / Subscriber ID Effective Phone Address [facility] xxxxxxxxx 2017-Ann [address]OX Medic aid HEALTH CHOICE - HEALTH CHOICE nt [id number] 1 MANAGED MEDICAID [place] [phone] documented as of this encounter
--- OUTSIDE RECORDS SUMMARY | 2019-08-12 13:34 | XMS REPORT | Summary of Care ---
:1985 Author Organization [facility] - [address] [address] Care Team Providers Name Role Phone Pal Serna Unavailable Yokasta Corona MD Primary Care Provider Reason for Visit Reason Comments Results Encounter Details Date Type Department Care Team Description 06/10/2019 Telephone [facility] Women's Yokasta Corona MD Results Healthcare- [address], [place] [address] 208 [place] [address] [phone] Allergies No Known Allergiesdocumented as of this [...] & Corona, Wander burks MD Visit Gynecology [address] [place] [phone] 07/10/2019 Customer Acquisition Specialist Visit Maternal NawafirahNilesh, Medicine [address] [place], [place] [address] 08/07/2019 Customer Acquisition Specialist Visit Maternal Nilesh Ramírez, Medicine [address] [place], [place] [address] [phone] Health Maintenance Due Date Last Done Comments [...] Plan / Subscriber ID Effective Phone Address [facility] xxxxxxxxx 2017-Prese P.O. BOX Medic aid HEALTH CHOICE - HEALTH CHOICE nt [id number] 1 [facility] MEDICAID [place], [place] MEDICAID [phone] documented as of this encounter
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
--- OUTSIDE RECORDS SUMMARY | 2019-08-12 13:34 | XMS REPORT | Summary of Care ---
:1987 Author Organization [facility] - [address] [address] Care Team Providers Name Role Phone Pal Serna Unavailable Yokasta Corona MD Primary Care Provider Reason for Visit Reason Comments Assessment Swollen Ankles 33 wks pregna nt Encounter Details Date Type Department Care Team Description 07/03/2019 Telephone [facility]'s Yokasta Corona MD Assessment (Swollen Healthcare- [address] Ankles 33 wks [address] [place], [place] pregnan t) [address] [address] [place], [place] [phone] Allergies No Known Allergiesdocumented as of this encounter (statuses as of 07/03/2019) Medications Medication Sig Dispensed Refills Start Date [...] as of this encounter (statuses as of 07/03/2019) Active Problems Problem Noted Date Obesity (BMI 30-39.9) 12/29/2018 Estimated Date of Delivery Comments Yes 08/27/2019 documented as of this encounter (statuses as of 07/03/2019) Immunizations Name Administration Dates Next Due TDAP [...] Treatment Date Type Specialty Care Team Description 07/06/2019 Routine Obstetrics & CoronaWander arndt MD Visit Gynecology [address] [place] [phone] 07/10/2019 Wire Weaver Cloth Visit Maternal NawafiraNilesh tate, Medicine [facility] [address] [place], [place] [address] 08/07/2019 Wire Weaver Cloth Visit Maternal Nilesh Ramírez, Medicine [address] [place], [place] [address] Health Maintenance Due Date Last Done Comments PNEUMOCOCCAL 0-64 YEARS COMBINED 1993 SERIES (1 of 1 - PPSV23) PAP SMEAR 2008 INFLUENZA VACCINE (#1) 2020 Postponed from 01/01/2019 (Refused) DTaP,Tdap,and Td Vaccines (2 - 06/09/2029 06/09/2019 Td) documented as of this encounter Results Not on filedocumented in this encounter Insurance Payer Benefit Plan / Subscriber ID Effective Phone Address [facility] xxxxxxxxx 2017-Ann [address]OX Medic aid HEALTH CHOICE - HEALTH CHOICE nt [id number] 1 MANAGED MEDICAID [place], [place] MEDICAID [phone] documented as of this encounter
--- OUTSIDE RECORDS SUMMARY | 2019-08-12 13:34 | XMS REPORT | Summary of Care ---
:1985 Author Organization [facility] Address [address] [place] [address] Care Team Providers Name Role Phone Pal Serna Unavailable Yokasta Corona MD Primary Care Provider Reason for Visit Reason Comments LAB WORK Encounter Details Date Type Department Care Team Description 06/09/2019 Antenna Engineer Visit [facility] Wander Corona MD [address] [place] [phone] Supervision of high Professional Office Sukhwinder [facility] Lab Main risk , Building Phlebotomy [facility] Lab Professional Office Building [address] [facility] , [address] [place] [address] Allergies No Known Allergiesdocumented as [...] Date Type Specialty Care Team Description 06/12/2019 Antenna Engineer Visit Maternal Nilesh Ramírez Medicine 301 [facility] [address] [place], [place] [address] 06/23/2019 Routine Obstetrics & CoronaWander MD Visit Gynecology [address] [place] [phone] 07/10/2019 Antenna Engineer Visit Maternal Nilesh Ramírez Medicine MD 301 [facility] [address] [place], [place] [address] 08/07/2019 Antenna Engineer Visit Maternal NawafadamNilesh, Medicine [address] [place], [place] [address] Name Type Priority Associated Diagnoses Date/Ti me GLUCOSE 1 HOUR POST LAB Routine Supervision of high r isk 06/09/2019 11:19 AM PRANDIAL , antepartum PATTERN MARKER CBC WITH DIFF LAB Routine Supervision of high risk 11:19 AM , antepartum PATTERN MARKER HIV 1/2 AG-AB WITH REFLEX LAB Routine Supervision of high risk 06/09/2019 11:19 AM , antepartum PATTERN MARKER ADC OR PAMELA ONLY - RPR LAB Routine Supervision of high risk 06/09/2019 11:19 AM , antepartum PATTERN MARKER CBC WITH DIFFERENTIAL LAB Routine Supervision of high risk 06/09/2019 11:19 AM , antepartum PATTERN MARKER Health Maintenance Due Date Last Done Comments PNEUMOCOCCAL 0-64 YEARS COMBINED 1993 SERIES (1 of 1 - PPSV23) DTaP,Tdap,and Td Vaccines (1 - 1998 Tdap) PAP SMEAR 2008 INFLUENZA VACCINE (#1) 2020 Postponed from 01/01/2019 (Refused) documented as of this encounter Results Not on filedocumented in this encounter Visit Diagnoses Diagnosis Supervision of high risk , ante documented in this encounter Insurance Payer Benefit Plan / Subscriber ID Effective Phone Address [facility] xxxxxxxxx 2017-Ann [address]OX Medic aid HEALTH CHOICE - HEALTH CHOICE nt [id number] 1 MANAGED MEDICAID [place], [place] [phone] documented as of this encounter
--- OUTSIDE RECORDS SUMMARY | 2019-08-12 13:34 | XMS REPORT | Summary of Care ---
:1985 Author Organization [facility] Address [address] [place] [address] Care Team Providers Name Role Phone Pal Serna Unavailable Yokasta Corona MD Primary Care Provider Reason for Visit Reason Comments Refill Request Encounter Details Date Type Department Care Team Description 06/13/2019 Refill [facility] Women's James Hwang MD Refill Request [facility]- [address] [place] [address], [address] [place] [address] [place] [address] [phone] Allergies No Known Allergiesdocumented as of this encounter (statuses as of 06/14/2019) Medications Medication Sig Dispensed Refills Start Date [...] as of this encounter (statuses as of 06/14/2019) Active Problems Problem Noted Date Obesity (BMI 30-39.9) 12/29/2018 Estimated Date of Delivery Comments Yes 08/27/2019 documented as of this encounter (statuses as of 06/14/2019) Immunizations Name Administration Dates Next Due TDAP [...] & Corona, Wander burks MD Visit Gynecology [address] [place] [phone] 07/10/2019 Process Mechanic Visit Maternal Nilesh Ramírez, Medicine [facility] [address] [place], [place] [address] 08/07/2019 Process Mechanic Visit Maternal Nilesh Ramírez, Medicine [address] [place], [place] [address] [phone] Health Maintenance Due Date Last Done Comments PNEUMOCOCCAL 0-64 YEARS COMBINED 1993 SERIES (1 of 1 - PPSV23) PAP SMEAR 2008 INFLUENZA VACCINE (#1) 2020 Postponed from 01/01/2019 (Refused) DTaP,Tdap,and Td Vaccines (2 - 06/09/2029 06/09/2019 Td) documented as of this encounter Results Not on filedocumented in this encounter Insurance Payer Benefit Plan / Subscriber ID Effective Phone Address [facility] xxxxxxxxx 2017-Ann P.Uriel BOX Medic aid HEALTH CHOICE - HEALTH CHOICE nt [id number] 1 MANAGED MEDICAID [place], [place] MEDICAID [phone] documented as of this encounter
--- OUTSIDE RECORDS SUMMARY | 2019-08-12 13:34 | XMS REPORT | Summary of Care ---
:[address] [facility] - Health Address [address] [place] [address] Care Team Providers Name Role Phone Pal Serna Unavailable Yokasta Corona MD Primary Care Provider Encounter Details Date Type Department Care Team Description 06/09/[address] [facility] Doctor Unassigned, No 301 [facility] [place] [address] 301 [place] [address] Allergies No Known Allergiesdocumented as of this encounter (statuses as of 06/15/2019) Medications Medication Sig Dispensed Refills Start Date [...] as of this encounter (statuses as of 06/15/2019) Active Problems Problem Noted Date Obesity (BMI 30-39.9) 12/29/2018 Estimated Date of Delivery Comments Yes 08/27/2019 documented as of this encounter (statuses as of 06/15/2019) Immunizations Name Administration Dates Next Due TDAP [...] & Corona, Wander burks MD Visit Gynecology [address] [place] [phone] 07/10/2019 Drilling Superintendent Visit Maternal Nilesh Ramírez Medicine [address] [place] [address] [address] [place], [place] [address] 08/07/2019 Drilling Superintendent Visit Maternal Nilesh Ramírez Medicine MD [address] [place] [address] [address] [place], [place] [address] Health Maintenance Due Date Last Done Comments PNEUMOCOCCAL 0-64 YEARS COMBINED 1993 SERIES (1 of 1 - PPSV23) PAP SMEAR 2008 INFLUENZA VACCINE (#1) 2020 Postponed from 01/01/2019 (Refused) DTaP,Tdap,and Td Vaccines (2 - 06/09/2029 06/09/2019 Td) documented as of this encounter Procedures Procedure Name Priority Date/Time Associated Diagnosis Comme nts AGREEMENTS AUTHORIZATIONS Routine 06/09/2019 12:01 AM AND IRREVOCABLE HUMAN RESOURCES SUPPORT SPECIALIST ASSIGNMENTS (FORM 2001) documented in this encounter Results Not on filedocumented in this encounter Insurance Payer Benefit Plan / Subscriber ID Effective Phone Address T [facility] xxxxxxxxx 2017-Prese [address]O. BOX Medic aid HEALTH CHOICE - HEALTH CHOICE nt [id number] 1 MANAGED MEDICAID [place], [place] [address] documented as of this encounter
--- OUTSIDE RECORDS SUMMARY | 2019-08-12 13:35 | XMS REPORT | Summary of Care ---
:1985 Author Organization [facility] - Health Address [address] [place] [address] Care Team Providers Name Role Phone Pal Serna Unavailable Yokasta Corona MD Primary Care Provider Encounter Details Date Type Department Care Team Description 07/06/2019 Orders Only [facility] Doctor Unassigned, No 301 [facility] [place] [address] 301 [place] [address] Allergies No Known Allergiesdocumented as of this encounter (statuses as of 07/15/2019) Medications Medication Sig Dispensed Refills Start Date [...] 07/06/2019 Active (PRISTIQ) 25 mg mouth daily. [id number]: Depression, unspecified depression type desvenlafaxine succinate Take 1 tablet by 30 tablet 0 07/06/19 20 Active (PRISTIQ) 50 mg 24 hr mouth daily. tabletIndications: Depression, unspecified depression type documented as of this encounter (statuses as of 07/15/2019) Active Problems Problem Noted Date Obesity (BMI 30-39.9) 12/29/2018 Estimated Date of Delivery Comments Yes 08/27/2019 documented as of this encounter (statuses as of 07/15/2019) Immunizations Name Administration Dates Next Due TDAP [...] Corona, Wander burks MD Visit Gynecology [address] [place] [address] [place] [address] 08/01/2019 Geriatrician Visit Maternal Medicine 08/07/2019 Geriatrician Visit Maternal Nilesh Ramírez, Medicine [address] [place], [place] [address] Health Maintenance Due Date Last Done Comments PNEUMOCOCCAL 0-64 YEARS COMBINED 1993 SERIES (1 of 1 - PPSV23) PAP SMEAR 2008 INFLUENZA VACCINE (#1) 2020 Postponed from 01/01/2019 (Refused) DTaP,Tdap,and Td Vaccines (2 - 06/09/2029 06/09/2019 Td) documented as of this encounter Procedures Procedure Name Priority Date/Time Associated Diagnosis Comme nts INSURANCE CORRESPONDENCE Routine 07/06/2019 12:01 AM FEED BLENDER documented in this encounter Results Not on filedocumented in this encounter Insurance Payer Benefit Plan / Subscriber ID Effective Phone Address T [facility]UNITY xxxxxxxxx 2017-Prese [address]O. BOX Medic aid HEALTH CHOICE - HEALTH CHOICE nt [id number] 1 MANAGED MEDICAID [place], [place] [phone] documented as of this encounter
--- OUTSIDE RECORDS SUMMARY | 2019-08-12 13:35 | XMS REPORT | Summary of Care ---
:1985 Author Organization [facility] - Health Address [address] [place] [address] Care Team Providers Name Role Phone Pal Serna Unavailable Yokasta Corona MD Primary Care Provider Encounter Details Date Type Department Care Team Description 07/20/2019 Orders Only [facility] Doctor Unassigned, No [address] [facility] [place] [address] [address] [place] [address] Allergies No Known Allergiesdocumented as of this encounter (statuses as of 07/20/2019) Medications Medication Sig Dispensed Refills Start Date [...] 07/06/2019 Active (PRISTIQ) 25 mg mouth daily. [id number]: Depression, unspecified depression type desvenlafaxine succinate Take 1 tablet by 30 tablet 0 07/06/19 20 Active (PRISTIQ) 50 mg 24 hr mouth daily. tabletIndications: Depression, unspecified depression type documented as of this encounter (statuses as of 07/20/2019) Active Problems Problem Noted Date Obesity (BMI 30-39.9) 12/29/2018 Estimated Date of Delivery Comments Yes 08/27/2019 documented as of this encounter (statuses as of 07/20/2019) Immunizations Name Administration Dates Next Due TDAP [...] Treatment Date Type Specialty Care Team Description 08/01/2019 Oil Well Engineer Visit Maternal Medicine 08/03/2019 Routine Obstetrics & Corona, Wander burks MD Visit Gynecology [address] [place] [phone] 08/07/2019 Oil Well Engineer Visit Maternal Nilesh Ramírez, Medicine [address] [place], [place] [address] Health Maintenance Due Date Last Done Comments PNEUMOCOCCAL 0-64 YEARS COMBINED 1993 SERIES (1 of 1 - PPSV23) PAP SMEAR 2008 INFLUENZA VACCINE (#1) 2020 Postponed from 01/01/2019 (Refused) DTaP,Tdap,and Td Vaccines (2 - 06/09/2029 06/09/2019 Td) documented as of this encounter Procedures Procedure Name Priority Date/Time Associated Diagnosis Comme nts STERILIZATION CONSENT Routine 07/20/2019 12:01 AM FORM CDT documented in this encounter Results Not on filedocumented in this encounter Insurance Payer Benefit Plan / Subscriber ID Effective Phone Address [facility] xxxxxxxxx 2017-Prese [address] Medic aid HEALTH CHOICE - HEALTH CHOICE nt [id number] 1 MANAGED MEDICAID [place], [place] MEDICAID [phone] documented as of this encounter
--- OUTSIDE RECORDS SUMMARY | 2019-08-12 13:35 | XMS REPORT | Summary of Care ---
:1985 Author Organization [facility] - [facility] Address [address] [place] [address] Care Team Providers Name Role Phone Pal Serna Unavailable Yokasta Corona MD Primary Care Provider Reason for Visit Reason Comments ROUTINE VISIT Encounter Details Date Type Department Care Team Description 07/06/2019 Routine [facility] Women's oYkasta Corona, Supervision of high risk , antepartum (Primary Dx); Visit Healthcare- 32 weeks gestation of ; [address] Anemia affecting , antepartum; [address] [place] [address] Depress ion, unspecified depression type [address] [phone] [place], [place] [phone] [phone] Allergies No Known Allergiesdocumented as of this encounter (statuses as of 07/14/2019) Medications Medication Sig Dispensed Refills Start Date End Date Status clonazePAM 1 mg 0 12/22/2018 Act tino tablet methocarbamol 750 mg 0 12/28/2018 Active tablet dextroamphetamine-am 0 12/26/2018 Active phetamine 20 mg tablet vit Take by 0 Active calc,iron,folic mouth. ( VITAMIN ORAL) nutritional Take by 0 Active supplement/fiber mouth. (JUICE PLUS FIBRE ORAL) diphenhydrAMINE 25 Take one 90 tablet 1 02/13/2019 Active mg tablet three tabletIndications: times a day Generalized anxiety as needed for disorder anxiety ARIPiprazole 15 mg Take 1 tablet 30 tablet 1 02/13/2019 Active tabletIndications: by mouth Bipolar II disorder daily. proMETHazine 25 mg Take 1 tablet 15 tablet 1 03/16/2019 Active tabletIndications: by mouth Nausea/vomiting in every 6 (six) hours as needed for Nausea and Vomiting (N/V). ferrous sulfate Take 1 tablet 60 tablet 2 06/10/2019 Active (IRON, FERROUS by mouth 2 SULFATE,) 325 mg (65 (two) times mg iron) daily. tabletIndications: Anemia affecting , antepartum ascorbic acid, Take 1 tablet 90 tablet 2 06/10/2019 Active vitamin C, 500 mg by mouth 3 tabletIndications: (three) times Anemia affecting daily. , antepartum desvenlafaxine Take 25 mg by 30 tablet 0 07/06/2019 Active succinate (PRISTIQ) mouth daily. 25 mg [id number]: Depression, unspecified depression type desvenlafaxine Take 1 tablet 30 tablet 0 07/06/2019 Active succinate (PRISTIQ) by mouth 50 mg 24 hr daily. tabletIndications: Depression, unspecified depression type PRISTIQ 50 mg 24 hr 0 12/20/2018 07/06/19 Discontinued tablet 20 (Duplicate ) desvenlafaxine Take 1 tablet 30 tablet 2 02/02/2019 07/06/19 Discontinued succinate (PRISTIQ) by mouth 20 (Duplicate) 25 mg Tb24 daily. Pt to take with 50mg Pristiq for a total of 75mg documented as of this encounter (statuses as of 07/14/2019) Active Problems Problem Noted Date Obesity (BMI 30-39.9) 12/29/2018 Estimated Date of Delivery Comments Yes 08/27/2019 documented as of this encounter (statuses as of 07/14/2019) Immunizations Name Administration Dates Next Due TDAP [...] Sign Reading Time Taken Comments Blood Pressure 126/73 07/06/2019 1:26 PM MICROFILM MACHINE OPERATOR Pulse 89 07/06/2019 1:26 PM MICROFILM MACHINE OPERATOR Temperature 36.7 C (98 F) 07/06/2019 1:26 PM MICROFILM MACHINE OPERATOR Respiratory Rate 18 07/06/2019 1:26 PM MICROFILM MACHINE OPERATOR Oxygen Saturation - - Inhaled Oxygen Concentration - - Weight 93 kg (205 lb) 07/06/2019 1:26 PM MICROFILM MACHINE OPERATOR Height 167.6 cm (5' 6") 07/06/2019 1:26 PM MICROFILM MACHINE OPERATOR Body Mass Index 33.09 07/06/2019 1:26 PM MICROFILM MACHINE OPERATOR documented in this encounter Progress Notes Yokasta Corona MD - 07/06/2019 1:15 PM CST Chief complaint: Chief Complaint Patient presents with ROUTINE VISIT HPI Yuli Talbert is a 34 year old female with a 32w4d IUP presents for her routine visit. She reports +FM. She denies pain, contractions, LOF, or VB. The patient has no reports of headache, visual changes, epigastric pain, significant facial edema or shortness of breath. She has notedintermittent bilateral peripheral edema which resolves with elevation. She is no longer a patient with [facility] Psychiatry as she has not been seen there for several months. She has an appointment 07/26 with for her mental health 07/27/19. She reports good mood. Histories OB History Para Term AB Living [...] Specified) Past Surgical History: Procedure Laterality Date [place] ANESTH,KNEE AREA SURGERY 2009 Cleaned out scar [...] file Gets together: Not on file Attends sabianist service: Not on file Active member of [...] to cats - Toxoplasmosis precautions Taoism preference: non-protestant Social History Substance and Sexual Activity Sexual Activity Yes Partners: Male control/protection: None Labs I have reviewed the patient's labs. Radiology No new radiology. Allergies Yuli has No Known Allergies. Medications Yuli has a current medication list which includes the following prescription(s): desvenlafaxine succinate, desvenlafaxine succinate, ascorbic acid (vitamin c), ferrous sulfate, promethazine, aripiprazole, diphenhydramine, clonazepam, dextroamphetamine-amphetamine, methocarbamol, nutritional suppleme nt/fiber, and vit calc,iron,folic. Review of Systems Constitutional: Negative. HENT: Negative. Eyes: Negative. Respiratory: Negative. Breasts: Negative. Cardiovascular: Positive for leg swelling. Gastrointestinal: Negative. Genitourinary: Negative. Musculoskeletal: Negative. Skin: Negative. Neurological: Negative. Psychiatric/Behavioral: Negative. Negative for dysphoric mood, self-injury and suicidal ideas. 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 Patient understands the importance of establishing with her mental health professional for close f/u, medication refill and adjustment. -Continue growth monitoring with q 4 week US due to early exposure to medicaltherapy. Next US 07/10/19. Genetics -Horizon testing with maternal silent maternal alpha-thalassemia carrier. FOB tested negative -Panorama/MSAFP normal Return to clinic in 2 weeks. This visit did not involve counseling and coordination that comprised more than 50% of the visit time. Yokasta Corona MD documented in this encounter Plan of Treatment Date Type Specialty Care Team Description 07/20/2019 Routine Obstetrics & Wander Corona MD Visit Gynecology [address] [place] [phone] 08/01/2019 Street Vendor Visit Maternal Medicine 08/07/2019 Street Vendor Visit Maternal Nilesh Ramírez, Medicine [address] [place], [place] [address] Health Maintenance Due Date Last Done Comments PNEUMOCOCCAL 0-64 YEARS COMBINED 1993 SERIES (1 of 1 - PPSV23) PAP SMEAR 2008 INFLUENZA VACCINE (#1) 2020 Postponed from 01/01/2019 (Refused) DTaP,Tdap,and Td Vaccines (2 - 06/09/2029 06/09/2019 Td) documented as of this encounter Procedures Procedure Name Priority Date/Time Associated Diagnosis Comme nts POCT URINALYSIS W/O Routine 07/06/2019 Supervision of high R esults for this SPECIFIC GRAVITY risk , procedur e are in the antepartum results section . documented in this encounter Results POCT URINALYSIS W/O SPECIFIC GRAVITY (07/06/2019) Pathologist Sig nature POCT PH U n/a 5 - 8 mg/dl POCT U LEUK EST n/a Negative - Negative POCT U NIT na/ Negative - Negative POCT U PROT neg Negative - Negative POCT U GLU neg Negative - Negative POCT U KETONE n/a Negative - Negative POCT U BLD n/a Negative - Negative Specimen Urine - URINE, CLEAN CATCH documented in this encounter Visit Diagnoses Diagnosis Supervision of high risk , ante - Primary 32 weeks gestation of state, incidental Anemia affecting , antepartum Depression, unspecified depression type documented in this encounter Insurance Payer Benefit Plan / Subscriber ID Effective Phone Address [facility] xxxxxxxxx 2017-Prese [address] Medic aid HEALTH CHOICE - [place] nt [id number] 1 MANAGED MEDICAID [place], [place] MEDICAID [phone] documented as of this encounter
--- OUTSIDE RECORDS SUMMARY | 2019-08-12 13:36 | XMS REPORT | Summary of Care ---
:1985 Author Organization [facility] - [facility] Address [address] [place] [address] Care Team Providers Name Role Phone Pal Serna Unavailable Yokasta Corona MD Primary Care Provider Reason for Visit Reason Comments ROUTINE VISIT Encounter Details Date Type Department Care Team Description 07/20/2019 Routine [facility] Women's Yokasta Corona, Supervision of high risk , antepartum (Primary Dx); Visit Healthcare- 34 weeks gestation of ; [address] Depression, unspecified depression type; [address] [place] [address] Bipolar affective disorder, remission status unspecified; [phone] Anemia of mother in , antepartu m; [place], [place] [phone] Low-lying placenta [address] [phone] Allergies No Known Allergiesdocumented as of this [...] 07/06/2019 Active (PRISTIQ) 25 mg mouth daily. [id number]: Depression, unspecified depression type desvenlafaxine succinate Take [...] Sign Reading Time Taken Comments Blood Pressure 115/73 07/20/2019 9:05 AM CDT Pulse 87 07/20/2019 9:05 AM CDT Temperature 36.6 C (97.9 F) 07/20/2019 9:05 AM CDT Respiratory Rate 18 07/20/2019 9:05 AM CDT Oxygen Saturation - - Inhaled Oxygen Concentration - - Weight 93.7 kg (206 lb 9.6 oz) 07/20/2019 9:05 AM CDT Height 167.6 cm (5' 6") 07/20/2019 9:05 AM CDT Body Mass Index 33.35 07/20/2019 9:05 AM CDT documented in this encounter Progress Notes Yokasta Corona MD - 07/20/2019 8:45 AM CDT Chief complaint: Chief Complaint Patient presents with ROUTINE VISIT HPI Yuli Talbert is a 34 year old female with a 34w4d IUP presents for her routine care. She reports +FM. She denies pain, contractions, LOF, or VB. The patient has no reports of headache, visual changes, epigastric pain, significant peripheral or facial edema or shortness of breath. She states she has good mood and did reinitiate her psychiatric medications. Patient also says that she became lightheaded when she was working in the house with friends. She says that she was dehydrated and had not been eating well. Patient has had no further episodes. Histories OB History Para Term AB Living [...] Specified) Past Surgical History: Procedure Laterality Date [place] ANESTH,KNEE AREA SURGERY 2009 Cleaned out scar [...] file Gets together: Not on file Attends confucianist service: Not on file Active member of [...] abuse Exposure to cats - Toxoplasmosis precautions Uatsdin preference: non-presybeterian Social History Substance and Sexual Activity Sexual Activity Yes Partners: Male control/protection: None Labs I have reviewed the patient's labs. Radiology I have reviewed the patient's radiology. OB ultrasound 07/10/19 Allergies Yuli has No Known Allergies. Medications [...] Negative. Psychiatric/Behavioral: Negative. Endocrine: Endocrine negative BP 115/73 (BP Location: Left arm, Patient Position: Sitting, BP CUFF SIZE: Adult Medium) | Pulse 87 | Temp 36.6 C (97.9 F) (Oral) | Resp 18 | Ht 5' 6" (1.676 m) | Wt 206 lb 9.6 oz (93.7 kg) |LMP 11/20/2018 (Exact Date) | BMI 33.35 kg/m Pregravid BMI: Could not be calculated [...] Supervision of high risk , antepartum Comment: Recent OB ultrasound on 07/10/19 consistent with a EFW of 1890 g/18th percentile. Appropriate growth noted. Plan: Continue kick count Repeat OB ultrasound at 36 weeks. This is scheduled for 08/01/19 Bipolar affective disorder, remission status unspecified Comment: Patient had not been taking her medications prescribed by psychiatry. Her Pristiq has beenrefilled and she is recently restarted her medication. Patient additionally has not kept appointments with psychiatry. She states she has a follow-up appointment with a provider on 07/27/19 that will assist her with her medications. Plan: Encourage patient to keep appointments with a provider who will be assisting her with her psychiatric needs Continue growth monitoring every 4 weeks due to early exposure to medical therapy. Continue Abilify and Pristiq as previously prescribed by [facility] psychiatry Anemia of mother in , antepartum Comment: H/H 06/09/19 10.4/31.4 Plan: Continue FeSO4 325 mg by mouth twice a day and vitamin C 500 mg by mouth 3 times a day CBC at 36 weeks Low-lying placenta Comment: previous OB ultrasounds consistent with posterior placenta. Recent ultrasound 07/10/19 with placental edge within 1.4 cm from the internal loss Plan: Ultrasound scheduled for repeat on 08/01/19 Patient understands that if her low lying placenta persists we will discuss her option of delivery as she will be more susceptible to abnormal placental implantation, hemorrhage, and hysterectomy at the time of her delivery. Genetics -Horizon testing with maternalsilent maternal alpha-thalassemiacarrier. FOB tested negative -Panorama/MSAFP normal History of THC use Continue to encourage abstinence throughout Multiparous desires permanent sterilization Comment:Patient states that she did not no longer desires further childbearing and would like tubal ligation procedure for contraception Plan:Tubal ligation consents were signed. Patient was counseled as follows: I counseled the patient regarding incentives, risks, benefits and alternatives of Bilateral Tubal Ligation including: risk of infection, bleeding, need for transfusion of blood/blood products, injury to ureter, bladder, bowel with possible further surgery, stint, catheterization or colostomy to repair. The permanence of this procedure and risk of regret in 1 in 3 women under the age of 30 were discussed. tubal ligation failure rate is 0.75% and higher in women younger than 30 years old. There is an increased risk for ectopic and the need to seek medical attention should failure of tubal ligation occur. Alternatives discussed include: Oral Contraceptive Agents, Intrauterine Device, Depo Provera, Ring, Patch, Condoms/foam, interval bilateral tubal ligation, or vasectomy of partner. All questions answered, and patient expressed her desire to proceed with bilateral tubal ligation surgery. Consents were signed. Return to clinic in 2 weeks. This visit did not involve counseling and coordination that comprised more than 50% of the visit time. Yokasta Corona MD documented in this encounter Plan of Treatment Date Type Specialty Care Team Description 08/01/2019 Supervisor Fabrication And Assembly Visit Maternal Medicine 08/03/2019 Routine Obstetrics & Wander Corona MD Visit Gynecology [address] [place] [phone] 08/07/2019 Supervisor Fabrication And Assembly Visit Maternal Nilesh Ramírez Medicine MD [address] [place], [place] [address] Health Maintenance Due Date Last Done Comments PNEUMOCOCCAL 0-64 YEARS COMBINED 1993 SERIES (1 of 1 - PPSV23) PAP SMEAR 2008 INFLUENZA VACCINE (#1) 2020 Postponed from 01/01/2019 (Refused) DTaP,Tdap,and Td Vaccines (2 - 06/09/2029 06/09/2019 Td) documented as of this encounter Results Not on filedocumented in this encounter Visit Diagnoses Diagnosis Supervision of high risk , ante - Primary 34 weeks gestation of state, incidental Depression, unspecified depression type Bipolar affective disorder, remission st atus unspecified Anemia of mother in , antepartu m Anemia, antepartum Low-lying placenta Hemorrhage from placenta previa, unspeci fied as to episode of care documented in this encounter Insurance Payer Benefit Plan / Subscriber ID Effective Phone Address [facility] xxxxxxxxx 2017-Ann [address] Medic aid HEALTH CHOICE - HEALTH CHOICE nt [id number] 1 MANAGED MEDICAID [place], [place] MEDICAID [phone] documented as of this encounter
--- OUTSIDE RECORDS SUMMARY | 2019-08-12 13:36 | XMS REPORT | Summary of Care ---
:1985 Author Organization [facility] - [address] [address] Care Team Providers Name Role Phone Pal Serna Unavailable Yokasta Corona MD Primary Care Provider Reason for Visit Reason Comments Rx Concern/Question Encounter Details Date Type Department Care Team Description 07/19/2019 Telephone [facility] Yokasta Corona MD Rx Concern/Question Healthcare- [phone] [place], [place] [phone] Allergies No Known Allergiesdocumented as of this encounter (statuses as of 07/21/2019) Medications Medication Sig Dispensed Refills Start Date [...] 07/06/2019 Active (PRISTIQ) 25 mg mouth daily. [id number]: Depression, unspecified depression type desvenlafaxine succinate Take 1 tablet by 30 tablet 0 07/06/19 20 Active (PRISTIQ) 50 mg 24 hr mouth daily. tabletIndications: Depression, unspecified depression type documented as of this encounter (statuses as of 07/21/2019) Active Problems Problem Noted Date Obesity (BMI 30-39.9) 12/29/2018 Estimated Date of Delivery Comments Yes 08/27/2019 documented as of this encounter (statuses as of 07/21/2019) Immunizations Name Administration Dates Next Due TDAP [...] Date Type Specialty Care Team Description 08/01/2019 Exterminator Termite Visit Maternal Medicine 08/03/2019 Routine Obstetrics & Corona, Wander burks MD Visit Gynecology [address] [place] [phone] 08/07/2019 Exterminator Termite Visit Maternal Harirah, Galloway M, Medicine [address] [place] [address] Health Maintenance Due Date Last Done Comments PNEUMOCOCCAL 0-64 YEARS COMBINED 1993 SERIES (1 of 1 - PPSV23) PAP SMEAR 2008 INFLUENZA VACCINE (#1) 2020 Postponed from 01/01/2019 (Refused) DTaP,Tdap,and Td Vaccines (2 - 06/09/2029 06/09/2019 Td) documented as of this encounter Results Not on filedocumented in this encounter Insurance Payer Benefit Plan / Subscriber ID Effective Phone Address [facility] xxxxxxxxx 2017-Ann [address] Medic aid HEALTH CHOICE - HEALTH CHOICE nt [id number] 1 [facility] MEDICAID [place], [place] MEDICAID [phone] documented as of this encounter
--- OUTSIDE RECORDS SUMMARY | 2019-08-12 13:36 | XMS REPORT | Summary of Care ---
:1985 Author Organization [address] [address] Care Team Providers Name Role Phone Pal Srena Unavailable Yokasta Corona MD Primary Care Provider Reason for Visit Reason Comments Notification Breast Pump Order faxed to [facility] Encounter Details Date Type Department Care Team Description 07/21/2019 Telephone [facility] Women's Yokasta Corona MD Notification (Breast Healthcare- [address] Pump Order faxed to [address] [place] [address] [facility] [address] [phone] [place], [place] [phone] Allergies No Known Allergiesdocumented as of this [...] 07/06/2019 Active (PRISTIQ) 25 mg mouth daily. [id number]: Depression, unspecified depression type desvenlafaxine succinate Take [...] Date Type Specialty Care Team Description 08/01/2019 Tractor Engine Mechanic Visit Maternal Medicine 08/03/2019 Routine Obstetrics & Corona, Wander burks MD Visit Gynecology [address] [place] [phone] 08/07/2019 Tractor Engine Mechanic Visit Maternal Nilesh Ramírez, Medicine [address] [place] [address] [phone] Health Maintenance Due Date Last Done Comments PNEUMOCOCCAL 0-64 YEARS COMBINED 1993 SERIES (1 of 1 - PPSV23) PAP SMEAR 2008 INFLUENZA VACCINE (#1) 2020 Postponed from 01/01/2019 (Refused) DTaP,Tdap,and Td Vaccines (2 - 06/09/2029 06/09/2019 Td) documented as of this encounter Results Not on filedocumented in this encounter Insurance Payer Benefit Plan / Subscriber ID Effective Phone Address [facility] xxxxxxxxx 2017-Ann [address] Medic aid HEALTH CHOICE - HEALTH CHOICE nt [id number] 1 MANAGED MEDICAID [place], [place] MEDICAID [phone] documented as of this encounter
--- OUTSIDE RECORDS SUMMARY | 2019-08-12 13:36 | XMS REPORT | Summary of Care ---
:1985 Author Organization [facility] - [facility] Address [address] [place] [address] Care Team Providers Name Role Phone Pal Serna Unavailable Yokasta Corona MD Primary Care Provider Reason for Visit Reason Comments ROUTINE VISIT Encounter Details Date Type Department Care Team Description 07/20/2019 Routine [facility] [place] [facility] Women[facility] Yokasta Corona, Supervision of high risk , antepartum (Primary Dx); Visit Healthcare- 34 weeks gestation of ; [address] Depression, unspecified depression type; [address] [place] [address] Bipolar affective disorder, remission status unspecified; [address] [phone] Anemia of mother in , antepartu m; [place], [place] [phone] Low-lying placenta [address] [phone] Allergies No Known Allergiesdocumented as of this encounter (statuses as of 07/22/2019) Medications Medication Sig Dispensed Refills Start Date [...] 07/06/2019 Active (PRISTIQ) 25 mg mouth daily. [id number]: Depression, unspecified depression type desvenlafaxine succinate Take 1 tablet by 30 tablet 0 07/06/19 20 Active (PRISTIQ) 50 mg 24 hr mouth daily. tabletIndications: Depression, unspecified depression type documented as of this encounter (statuses as of 07/22/2019) Active Problems Problem Noted Date Obesity (BMI 30-39.9) 12/29/2018 Estimated Date of Delivery Comments Yes 08/27/2019 documented as of this encounter (statuses as of 07/22/2019) Immunizations Name Administration Dates Next Due TDAP [...] Specified) Past Surgical History: Procedure Laterality Date [place] ANESTH,KNEE AREA SURGERY 2009 Cleaned out scar [...] file Gets together: Not on file Attends restorationism service: Not on file Active member of [...] to cats - Toxoplasmosis precautions Rastafarian preference: non-religion Social History Substance and Sexual Activity Sexual [...] Abilify and Pristiq as previously prescribed by [facility] psychiatry Anemia of mother in , antepartum [...] Date Type Specialty Care Team Description 08/01/2019 Forgesmith Visit Maternal Medicine 08/03/2019 Routine Obstetrics & Wander Corona MD Visit Gynecology [address] [place] [address] [phone] 08/07/2019 Forgesmith Visit Maternal Nilesh Ramírez Medicine MD [address] [place], [place] [address] Health Maintenance Due Date [...] Plan / Subscriber ID Effective Phone Address [facility] xxxxxxxxx 2017-Ann [address] Medic aid HEALTH CHOICE - [place] [id number] 1 MANAGED MEDICAID [place], [place] MED[place]ID [phone] documented as of this encounter
--- OUTSIDE RECORDS SUMMARY | 2019-08-12 13:37 | XMS REPORT | Summary of Care ---
:1985 Author Organization [facility] - [address] [address] Care Team Providers Name Role Phone Pal Serna Unavailable Yokasta Corona MD Primary Care Provider Reason for Visit Reason Comments Rx Concern/Question Encounter Details Date Type Department Care Team Description 07/27/2019 Telephone [facility] Yokasta Corona MD Rx Concern/Question Healthcare- [phone] [place], [place] [phone] Allergies No Known Allergiesdocumented as of this encounter (statuses as of 07/27/2019) Medications Medication Sig Dispensed Refills Start Date [...] 07/06/2019 Active (PRISTIQ) 25 mg mouth daily. [id number]: Depression, unspecified depression type desvenlafaxine succinate Take 1 tablet by 30 tablet 0 07/06/19 20 Active (PRISTIQ) 50 mg 24 hr mouth daily. tabletIndications: Depression, unspecified depression type documented as of this encounter (statuses as of 07/27/2019) Active Problems Problem Noted Date Obesity (BMI 30-39.9) 12/29/2018 Estimated Date of Delivery Comments Yes 08/27/2019 documented as of this encounter (statuses as of 07/27/2019) Immunizations Name Administration Dates Next Due TDAP [...] Date Type Specialty Care Team Description 08/01/2019 Stonemason Visit Maternal Medicine 08/03/2019 Routine Obstetrics & Corona, Wander burks MD Visit Gynecology [address] [place] [phone] 08/07/2019 Stonemason Visit Maternal Harirah, Galloway M, Medicine [address] [place] [address] Health Maintenance Due Date Last Done Comments PNEUMOCOCCAL 0-64 YEARS COMBINED 1993 SERIES (1 of 1 - PPSV23) PAP SMEAR 2008 INFLUENZA VACCINE (#1) 2020 Postponed from 01/01/2019 (Refused) DTaP,Tdap,and Td Vaccines (2 - 06/09/2029 06/09/2019 Td) documented as of this encounter Results Not on filedocumented in this encounter Insurance Payer Benefit Plan / Subscriber ID Effective Phone Address [facility] xxxxxxxxx 2017-Ann [address] Medic aid HEALTH CHOICE - HEALTH CHOICE nt [id number] [facility] MEDICAID [place], [place] MEDICAID [phone] documented as of this encounter
--- OUTSIDE RECORDS SUMMARY | 2019-08-12 13:37 | XMS REPORT | Summary of Care ---
:1985 Author Organization [facility] - [address] [address] Care Team Providers Name Role Phone Pal Serna Unavailable Yokasta Corona MD Primary Care Provider Reason for Visit Reason Comments Orders Breast Pump Order / Aero Romaine w Healthcare Encounter Details Date Type Department Care Team Description 07/24/2019 Telephone [facility] Women's Yokasta Corona MD Orders (Breast Pump Healthcare- [address] Order / Aero Flow [address] [facility] are) [phone] [place], [place] [phone] [address] [phone] Allergies No Known Allergiesdocumented as of this encounter (statuses as of 07/24/2019) Medications Medication Sig Dispensed Refills Start Date [...] 07/06/2019 Active (PRISTIQ) 25 mg mouth daily. [id number]: Depression, unspecified depression type desvenlafaxine succinate Take 1 tablet by 30 tablet 0 07/06/19 20 Active (PRISTIQ) 50 mg 24 hr mouth daily. tabletIndications: Depression, unspecified depression type documented as of this encounter (statuses as of 07/24/2019) Active Problems Problem Noted Date Obesity (BMI 30-39.9) 12/29/2018 Estimated Date of Delivery Comments Yes 08/27/2019 documented as of this encounter (statuses as of 07/24/2019) Immunizations Name Administration Dates Next Due TDAP [...] Date Type Specialty Care Team Description 08/01/2019 Transaction Processor Visit Maternal Medicine 08/03/2019 Routine Obstetrics & Corona, Wander burks MD Visit Gynecology [address] [place] [phone] 08/07/2019 Transaction Processor Visit Maternal Nilesh Ramírez, Medicine [address] [place] [address] [phone] Health Maintenance Due Date Last Done Comments PNEUMOCOCCAL 0-64 YEARS COMBINED 1993 SERIES (1 of 1 - PPSV23) PAP SMEAR 2008 INFLUENZA VACCINE (#1) 2020 Postponed from 01/01/2019 (Refused) DTaP,Tdap,and Td Vaccines (2 - 06/09/2029 06/09/2019 Td) documented as of this encounter Results Not on filedocumented in this encounter Insurance Payer Benefit Plan / Subscriber ID Effective Phone Address [facility] xxxxxxxxx 2017-Ann [address] Medic aid HEALTH CHOICE - HEALTH CHOICE nt [id number] 1 MANAGED MEDICAID [place], [place] MEDICAID [phone] documented as of this encounter
--- OUTSIDE RECORDS SUMMARY | 2019-08-12 13:37 | XMS REPORT | Summary of Care ---
:1985 Author Organization [facility] - [facility] Address [address] [place] [address] Care Team Providers Name Role Phone Pal Serna Unavailable Yokasta Corona MD Primary Care Provider Reason for Visit Reason Comments ULTRASOUND Encounter Details Date Type Department Care Team Description 08/01/2019 Therapy Tech Visit [facility] Prem Leonardo Lo w implantation of placenta without hemorrhage; Ultrasound- Beto NGUYEN Suspected damage to fetus from drugs, af fecting management of mother, antepartum, single or unspecified fetus [address] [place], [place] [phone] [place], [place] [phone] Allergies No Known Allergiesdocumented as of this encounter (statuses as of 08/01/2019) Medications Medication Sig Dispensed Refills Start Date [...] 07/06/2019 Active (PRISTIQ) 25 mg mouth daily. [id number]: Depression, unspecified depression type desvenlafaxine succinate Take 1 tablet by 30 tablet 0 07/06/19 20 Active (PRISTIQ) 50 mg 24 hr mouth daily. tabletIndications: Depression, unspecified depression type documented as of this encounter (statuses as of 08/01/2019) Active Problems Problem Noted Date Obesity (BMI 30-39.9) 12/29/2018 Estimated Date of Delivery Comments Yes 08/27/2019 documented as of this encounter (statuses as of 08/01/2019) Immunizations Name Administration Dates Next Due TDAP [...] Treatment Date Type Specialty Care Team Description 08/02/2019 Telemedicine Visit Psychiatry Obed Russell MD [address] [place] [address] Hailey Berrios MD [address] [place] [address]. [place] [address] [phone] 08/03/2019 Routine Visit Obstetrics & Yokasta Bolivar MD Gynecology [address] [place], [place] [address] [place] [address] [phone] 08/07/2019 Therapy Tech Visit Maternal Nilesh Ramírez, Medicine [address] [place] [address] [address] [place], [place] [address] Health Maintenance Due Date Last Done Comments PNEUMOCOCCAL 0-64 YEARS COMBINED 1993 SERIES (1 of 1 - PPSV23) PAP SMEAR 2008 INFLUENZA VACCINE (#1) 2020 Postponed from 01/01/2019 (Refused) DTaP,Tdap,and Td Vaccines (2 - 06/09/2029 06/09/2019 Td) documented as of this encounter Results Not on filedocumented in this encounter Visit Diagnoses Diagnosis Low implantation of placenta without hem orrhage Placenta previa without hemorrhage, unsp ecified as to episode of care Suspected damage to fetus from drugs, af fecting management of mother, antepartum, single or unspecified fetus documented in this encounter Insurance Payer Benefit Plan / Subscriber ID Effective Phone Address [facility] xxxxxxxxx 2017-Ann [address] Medic aid HEALTH CHOICE - HEALTH CHOICE nt [id number] 1 MANAGED MEDICAID [place], [place]ICAID [phone] documented as of this encounter
--- OUTSIDE RECORDS SUMMARY | 2019-08-12 13:38 | XMS REPORT | Summary of Care ---
:1985 Author Organization [facility] Address [address] [place] [address] Care Team Providers Name Role Phone Yokasta Corona MD Primary Care Provider Reason for Visit Reason Comments LAB Encounter Details Date Type Department Care Team Description 08/03/2019 Benefits Counselor Visit [facility] Wander Corona MD [address] [place] [phone] Supervision of high risk , ante ; Professional Office 2, Ad[facility] Lab 36 weeks gestation of Building Phlebotomy Lab Professional Office Building [address] [place] [address] , [address] [place] [address] Allergies No Known Allergiesdocumented as of this encounter (statuses as of 08/03/2019) Medications Medication Sig Dispensed Refills Start Date End Date Status methocarbamol 750 mg 0 12/28/2018 Active tablet dextroamphetamine-amphet 0 12/26/2018 Active amine 20 mg tablet vit Take by mouth. 0 A ctive calc,iron,folic ( VITAMIN ORAL) nutritional Take by mouth. 0 Ac tive supplement/fiber (JUICE PLUS FIBRE ORAL) diphenhydrAMINE 25 mg Take one tablet 90 tablet 1 02/13/2019 Active tabletIndications: three times a Generalized anxiety day as needed disorder for anxiety proMETHazine 25 mg Take 1 tablet by [...] tabletIndications: times daily. Anemia affecting , antepartum ARIPiprazole 15 mg Take 1 tablet by 30 tablet 1 08/02/2019 Active tabletIndications: mouth daily. Bipolar II disorder desvenlafaxine succinate Take 25 mg by 30 tablet 1 08/02/2019 Active (PRISTIQ) 25 mg mouth daily. [id number]: Depression, unspecified depression type desvenlafaxine succinate Take 1 tablet by 30 tablet 1 08/02/19 20 Active (PRISTIQ) 50 mg 24 hr mouth daily. tabletIndications: Depression, unspecified depression type documented as of this encounter (statuses as of 08/03/2019) Active Problems Problem Noted Date Obesity (BMI 30-39.9) 12/29/2018 Estimated Date of Delivery Comments Yes 08/27/2019 documented as of this encounter (statuses as of 08/03/2019) Immunizations Name Administration Dates Next Due TDAP [...] Treatment Date Type Specialty Care Team Description 08/07/2019 Benefits Counselor Visit Maternal HarirahNilesh, Medicine [address] [place] [address] [address] [place], [place] [address] 08/10/2019 Routine Obstetrics & Corona, Wander burks MD Visit Gynecology [address] [place] [address] [phone] 09/06/2019 Office Visit Psychiatry BerriosHailey MD [address] [place], [place] [address]d. [place] [address] Name Type Priority Associated Diagnoses Order S chedule CBC WITH DIFFERENTIAL LAB Routine Supervision of high risk Ordered: 08/03/2019 , antep artum 36 weeks gestation of Health Maintenance Due Date Last Done Comments PNEUMOCOCCAL 0-64 YEARS COMBINED 1993 SERIES (1 of 1 - PPSV23) PAP SMEAR 2008 INFLUENZA VACCINE (#1) 2020 Postponed from 01/01/2019 (Refused) DTaP,Tdap,and Td Vaccines (2 - 06/09/2029 06/09/2019 Td) documented as of this encounter Results Not on filedocumented in this encounter Visit Diagnoses Diagnosis Supervision of high risk , ante 36 weeks gestation of state, incidental documented in this encounter Insurance Payer Benefit Plan / Subscriber ID Effective Phone Address [facility] xxxxxxxxx 2017-Ann [address] Medic aid HEALTH CHOICE - HEALTH CHOICE nt [id number] 1 MANAGED MEDICAID [place], [place] MED[place]ID [phone] documented as of this encounter
--- OUTSIDE RECORDS SUMMARY | 2019-08-12 13:38 | XMS REPORT | Clinical Summary ---
:1985 Author Organization [facility] Address [address] [place] [address] Care Team Providers Name Role Phone Pal Serna Unavailable Yokasta Corona MD Primary Care Provider Allergies No Known Allergies Medications Medication Sig [...] 08/02/2019 Active (PRISTIQ) 25 mg mouth daily. [id number]: Depression, unspecified depression type desvenlafaxine succinate Take 1 tablet by 30 tablet 1 08/02/19 20 Active (PRISTIQ) 50 mg 24 hr mouth daily. tabletIndications: Depression, unspecified depression type Active Problems Problem Noted Date Obesity (BMI 30-39.9) 12/29/2018 Estimated Date of Delivery Comments Yes 08/27/2019 Encounters Date Type Specialty Care Team Description 08/01/2019 Kickboxing Instructor Visit Maternal Prem Leoanrdo impl antation of placenta without hemorrhage; Rashid Cervantes MD Suspected damag e to fetus from drugs, affecting management of mother, antepartum, single or unspecified fetus 08/01/2019 Case Management Public Health & Rosalina Warner [facility] Preventive Medicine 07/27/2019 Telephone Obstetrics & Corona, Rx Concern/Ques tion Gynecology MD Yokasta 07/24/2019 Telephone Obstetrics & Corona, Orders (Breast Pump Gynecology MD Yokasta Order / [facility]) 07/21/2019 Telephone Obstetrics & Corona, Notification (B reast Gynecology MD Yokasta Pump Order faxe d to [facility]) 07/20/2019 Routine Obstetrics & Corona, Supervision of high risk , antepartum (Primary Dx); Visit Gynecology MD Yokasta 34 weeks gestat ion of ; Depression, uns pecified depression type; Bipolar affecti ve disorder, remission status unspecified; Anemia of mothe r in , antepartum; Low-lying place nta 07/20/2019 Orders Only Doctor Unassigned, Metaline 07/19/2019 Telephone Obstetrics & Corona, Rx Concern/Ques tion Gynecology MD Yokasta 07/10/2019 Kickboxing Instructor Visit Maternal Nilesh Ramírez Low-ly ing placenta; Rashid Hanna MD Suspected damage to fetus from drugs, af fecting management of mother, antepartum, single or unspecified fetus Prem Leonardo MD 07/10/2019 Telephone Obstetrics & Corona, Rx Concern/Ques tion Gynecology MD Yokasta 07/06/2019 Routine Obstetrics & Corona, Supervision of high risk , antepartum (Primary Dx); Visit Gynecology MD Yokasta 32 weeks gestat ion of ; Anemia affectin g , antepartum; Depression, uns pecified depression type 07/06/2019 Orders Only Doctor Unassigned, Metaline 07/03/2019 Telephone Obstetrics & Corona, Assessment ([facility] Gynecology MD Yokasta Ankles 33 wks ) 06/13/2019 Refill Obstetrics & Hwang, Melissa, Refill Reque st Gynecology 06/12/2019 Kickboxing Instructor Visit Maternal Nilesh Ramírez Suspec rodrigo damage to Medicine MD Cyndi fetus from drugs, Velasquez affecting manag ement Andres, of mother, MD Sonia antepartum, not applicable or unspecified fet us 06/10/2019 Telephone Obstetrics & Corona, Results Gynecology MD Yokasta 06/09/2019 Kickboxing Instructor Visit Phlebotomy Corona, Supervision of high Yokasta MD risk , Pob, Adc Lab antepartum Main 06/09/2019 Routine Obstetrics & Corona, Supervision of high risk , antepartum (Primary Dx); Visit Gynecology MD Yokasta Supervision of high risk in second trimester; Bipolar affecti ve disorder, remission status unspecified; 28 weeks gestat ion of 06/09/2019 Orders Only Doctor Unassigned, Metaline 05/15/2019 Kickboxing Instructor Visit Maternal Nilesh Ramírez Matern al care for Medicine MD Cyndi suspected damag e to fetus by drugs, not applicable or unspecified fet us 05/11/2019 Routine Obstetrics & Corona, Supervision of high risk in second trimester (Primary Dx); Visit Gynecology MD Yokasta 24 weeks gestat ion of from Last 3 Months Immunizations Name Administration Dates Next Due TDAP (ADACEL) VACCINE 06/09/2019 Family History Medical History Relation Name Comments [...] Day Smoker Cigarettes Smokeless Tobacco: Current User Tobacco Cessation: Ready to Quit: Yes; C ounseling Given: Yes Comments: Last cigarette 03/15/2019; vap ing Alcohol [...] Mass Index 33.35 07/20/2019 9:05 AM CDT Plan of Treatment Date Type Specialty Care Team Description 08/03/2019 Routine Obstetrics & Corona, Wander burks MD Visit Gynecology [address] [place] [address] [phone] 08/07/2019 Kickboxing Instructor Visit Maternal NawafiraNilesh tate, Medicine [address] [place] [address] [address] [place], [place] [address] Health Maintenance Due Date Last Done Comments PNEUMOCOCCAL 0-64 YEARS COMBINED 1993 SERIES (1 of 1 - PPSV23) PAP SMEAR 2008 INFLUENZA VACCINE (#1) 2020 Postponed from 01/01/2019 (Refused) DTaP,Tdap,and Td Vaccines (2 - 06/09/2029 06/09/2019 Td) Procedures Procedure Name Priority Date/Time Associated Comments Diagnosis SECOND AND THIRD Routine 08/01/2019 11:05 TRIMESTER ULTRASOUND AM CDT DME/SUPPLY Routine 07/24/2019 12:01 JUSTIFICATION AM CDT DME/SUPPLY Routine 07/21/2019 12:01 JUSTIFICATION AM CDT STERILIZATION CONSENT Routine 07/20/2019 12:01 FORM AM CDT INSURANCE Routine 07/12/2019 12:01 CORRESPONDENCE AM CDT SECOND AND THIRD Routine 07/10/2019 11:02 TRIMESTER ULTRASOUND AM CDT INSURANCE Routine 07/06/2019 12:01 CORRESPONDENCE AM HUMAN CAPITAL MANAGER POCT URINALYSIS W/O Routine 07/06/2019 Supervision of high R esults for this SPECIFIC GRAVITY risk , procedur e are in antepartum the results section. SECOND AND THIRD Routine 06/12/2019 10:41 TRIMESTER ULTRASOUND AM HUMAN CAPITAL MANAGER CBC WITH DIFFERENTIAL Routine 06/09/2019 11:19 Supervision of high Results for this AM HUMAN CAPITAL MANAGER risk , procedure ar e in antepartum the results section. ADC OR PAMELA ONLY - Routine 06/09/2019 11:19 Supervision of high Results for this RPR AM HUMAN CAPITAL MANAGER risk , procedure ar e in antepartum the results section. HIV 1/2 AG-AB WITH Routine 06/09/2019 11:19 Supervision of hig h Results for this REFLEX AM HUMAN CAPITAL MANAGER risk , procedure ar e in antepartum the results section. CBC WITH DIFFERENTIAL Routine 06/09/2019 11:19 Supervision of high Results for this AM HUMAN CAPITAL MANAGER risk , procedure ar e in antepartum the results section. GLUCOSE 1 HOUR POST Routine 06/09/2019 11:19 Supervision of hi gh Results for this PRANDIAL AM HUMAN CAPITAL MANAGER risk , procedure ar e in antepartum the results section. HB ABO GROUPING Routine 06/09/2019 11:11 Supervision of high R esults for this AM HUMAN CAPITAL MANAGER risk , procedure ar e in antepartum the results section. TDAP (ADACEL) Routine 06/09/2019 10:43 Supervision of high IMMUNIZATION AM HUMAN CAPITAL MANAGER risk , antepartum Supervision of high risk in second trimester Bipolar affective disorder, remission status unspecifi ed 28 weeks gestation of AGREEMENTS Routine 06/09/2019 12:01 AUTHORIZATIONS AND AM HUMAN CAPITAL MANAGER IRREVOCABLE ASSIGNMENTS (FORM 2001) POCT URINALYSIS W/O Routine 06/09/2019 Supervision of high R esults for this SPECIFIC GRAVITY risk in proced ure are in second trimester the results 28 weeks gestation section. of SECOND AND THIRD Routine 05/15/2019 10:01 TRIMESTER ULTRASOUND AM HUMAN CAPITAL MANAGER POCT URINALYSIS W/O Routine 05/11/2019 Supervision of high R esults for this SPECIFIC GRAVITY risk in proced ure are in second trimester the results 24 weeks gestation section. of from Last 3 Months Results SECOND AND THIRD TRIMESTER ULTRASOUND (08/01/2019 11:05 AM CDT)Only the most recent of4 resultswithin the time period is included. Specimen DME/SUPPLY JUSTIFICATION (07/24/2019 12:01 AM CDT)Only the most recent of2 resultswithin the time period is included. Specimen Performing Organization Address [facility] Phone Number [facility] STERILIZATION CONSENT FORM (07/20/2019 12:01 AM CDT) Specimen Performing Organization Address [facility] Phone Number [facility] INSURANCE CORRESPONDENCE (07/12/2019 12:01 AM CDT)Only the most recent of2 resultswithin the time period is included. Specimen Performing Organization Address [facility] Phone Number [facility] POCT URINALYSIS W/O SPECIFIC GRAVITY (07/06/2019)Only the most recent of3 resultswithin the time period is included. Pathologist Sig formerly [facility] POCT PH U n/a 5 - 8 mg/dl POCT U LEUK EST n/a Negative - Negative POCT U NIT na/ Negative - Negative POCT U PROT neg Negative - Negative POCT U GLU neg Negative - Negative POCT U KETONE n/a Negative - Negative POCT U BLD n/a Negative - Negative Specimen Urine - URINE, CLEAN CATCH HIV 1/2 AG-AB WITH REFLEX (06/09/2019 11:19 AM HUMAN CAPITAL MANAGER) Pathologist [facility] HIV 1/2 Ag-Ab with Negative Negative [facility] Reflex HOSPITAL LABORATORY HIV Semi-quantitative 0.05 [facility] Specimen Blood Narrative Performed At Non-reactive for HIV-1 antigen and HIV-1/HIV-2 [facility] antibodies. No laboratory evidence of HIV infection. Repeat in 2-4 weeks if acute HIV infection is suspected. Performing Organization Address [facility] Phone Number [facility] CLIA: [id number], [address] [place], [place] [address] CBC WITH DIFFERENTIAL (06/09/2019 11:19 AM HUMAN CAPITAL MANAGER) Pathologist [facility] WBC 12.66 (H) 4.30 - 11.10 [facility] 10*3/L [facility]ITAL [facility] RBC 3.88 (L) 3.93 - 5.25 [facility] 10*6/L [facility]ITAL [facility] HGB 10.4 (L) 11.6 - 15.0 [facility] g/dL [facility]ITAL [facility] HCT 31.4 (L) 35.7 - 45.2 % [facility] MCV 80.9 80.6 - 95.5 fL [facility] MCH 26.8 25.9 - 32.8 pg [facility] MCHC 33.1 31.6 - 35.1 [facility] g/dL HOSPITAL [facility] RDW-SD 38.3 (L) 39.0 - 49.9 fL [facility] RDW-CV 13.1 12.0 - 15.5 % [facility] PLT 259 166 - 358 [facility] 10*3/L HOSPITAL LAB[facility]ORY MPV 9.8 9.5 - 12.9 fL [facility] NRBC/100 WBC 0.0 0.0 - 10.0 /100 [facility] WBCs [facility] NRBC x10^3 <0.01 10*3/L [facility] GRAN MAT (NEUT) % 71.0 % [facility] IMM GRAN % 0.60 % [facility] LYMPH % 22.1 % [facility] MONO % 4.5 % [facility] EOS % 1.6 % [facility] BASO % 0.2 % [facility] GRAN MAT x10^3(ANC) 8.99 (H) 1.88 - 7.09 [facility] 10*3/uL HOSPITAL LAB[facility]ORY IMM GRAN x10^3 0.08 (H) 0.00 - 0.06 [facility] 10*3/uL HOSPITAL [facility] LYMPH x10^3 2.80 1.32 - 3.29 [facility] 10*3/uL HOS[facility]ITAL [facility] MONO x10^3 0.57 0.33 - 0.92 [facility] 10*3/uL HOSPITAL LAB[facility]ORY EOS x10^3 0.20 0.03 - 0.39 [facility] 10*3/uL HOSPITAL [facility] BASO x10^3 <0.03 0.01 - 0.07 [facility] 10*3/uL HOSPITAL LAB[facility]ORY Specimen Blood Performing Organization Address City/State/Zipcode Phone Number [facility] CLIA: [id number], [address] [place], [place] [address] LABORATORY Hospital [facility] ADC OR PAMELA ONLY - RPR (06/09/2019 11:19 AM HUMAN CAPITAL MANAGER) Pathologist Sig nature RPR (Qualitative) Nonreactive Nonreactive [facility] Specimen Blood Performing Organization Address City/[facility]/Zipcode Phone Number [facility] CLIA: [id number], [address] [place], [place] [address] LABORATORY Hospital [facility] GLUCOSE 1 HOUR POST PRANDIAL (06/09/2019 11:19 AM HUMAN CAPITAL MANAGER) Pathologist Sig nature GLUC 1 HR 88 (L) 120 - 170 mg/dL [facility] Specimen Blood Performing Organization Address [facility] Phone Number [facility] CLIA: [id number], [address] [place], [place] [address] LABORATORY [facility] WORKUP, BLOOD BANK (06/09/2019 11:11 AM HUMAN CAPITAL MANAGER) Pathologist Sig nature ABO & RH O Positive LAB Comment: Performed at [facility] Laboratory [facility] Blood Bank [address] [place], [place] [address] Toll Free: [phone] CLIA No. [id number] IAT Negative LAB Comment: Performed at [facility] Blood Bank [address] [place], [place] [address] Toll Free: [phone] CLIA No. [id number] Specimen Blood - VENOUS Performing Organization Address [facility]/Zipcode Phone Number BLD LAB AGREEMENTS AUTHORIZATIONS AND IRREVOCABLE ASSIGNMENTS (FORM 2000) (06/09/2019 12:01 AM HUMAN CAPITAL MANAGER) Specimen Performing Organization Address [facility] Phone Number HIM from Last 3 Months Insurance Payer Benefit Plan / Subscriber ID Effective Phone Address T ype Group Dates [employer] xxxxxxxxx 2017-Ann [address] Medic aid HEALTH CHOICE - HEALTH [place] [id number] 1 MANAGED MEDICAID [place], [place] MEDICAID [phone]
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
--- OUTSIDE RECORDS SUMMARY | 2019-08-12 13:39 | XMS REPORT | Summary of Care ---
:1985 Author Organization [facility] - Health Address [address] [place] [address] Care Team Providers Name Role Phone Yokasta Corona MD Primary Care Provider Encounter Details Date Type Department Care Team Description 08/03/2019 Orders Only [facility] Doctor Unassigned, No [address] [facility] [place] [address] [address] [place] [address] Allergies No Known Allergiesdocumented as of this [...] 08/02/2019 Active (PRISTIQ) 25 mg mouth daily. [id number]: Depression, unspecified depression type desvenlafaxine succinate Take [...] Date Type Specialty Care Team Description 08/07/2019 Supervisor [place] Visit Maternal HarirahNilesh Medicine [facility] [address] [place], [place] [address] 08/10/2019 Routine Obstetrics & Corona, Wander burks MD Visit Gynecology [address] [place] [phone] 09/06/2019 Office Visit Psychiatry Hailey Berrios MD [address] [place] [address]. [place] [phone] Health Maintenance Due Date Last Done Comments PNEUMOCOCCAL 0-64 YEARS COMBINED 1993 SERIES (1 of 1 - PPSV23) PAP SMEAR 2008 INFLUENZA VACCINE (#1) 2020 Postponed from 01/01/2019 (Refused) DTaP,Tdap,and Td Vaccines (2 - 06/09/2029 06/09/2019 Td) documented as of this encounter Procedures Procedure Name Priority Date/Time Associated Diagnosis Comme nts DSU PRE-OP Routine 08/03/2019 12:01 AM CDT documented in this encounter Results Not on filedocumented in this encounter Insurance Payer Benefit Plan / Subscriber ID Effective Phone Address [facility] xxxxxxxxx 2017-Ann [address] Medic aid HEALTH CHOICE - HEALTH CHOICE nt [id number] 1 MANAGED MEDICAID [place], [place] MEDICAID [phone] documented as of this encounter
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
--- NOTE | 2019-08-12 15:09 | EDPHYS ---
Physician Documentation [facility] Name: Yuli Talbert Age: 34 yrs Sex: Female : 1985 Arrival Date: 08/12/2019 Time: 13:28 Bed 19 Private MD: Eduar Morales E ED Physician Santiago Spence HPI: 08/11 14:00 This 34 yrs old Female presents to ER via Ambulatory with complaints of Sinus cp Congestion. 14:00 The patient or guardian reports cough, that is intermittent, with productive sputum, cp clear. Onset: The symptoms/episode began/occurred yesterday. Associated signs and symptoms: Pertinent positives: earache, sore throat, sinus congestion. Historical: - Allergies: 13:39 NKDA; ss - PMHx: 13:39 Anxiety; Bipolar disorder; BORDERLINE PERSONALITY DISORDER; chronic back pain; ss - PSHx: 13:39 Knee surgery; ss - Immunization history:: Adult Immunizations up to date. - Social history:: Smoking status: Patient reports the use of cigarette tobacco products, 1/4 ppd. ROS: 14:05 Constitutional: Negative for body aches, chills, fever, poor PO intake. cp 14:05 Eyes: Negative for injury, pain, redness, and discharge. cp 14:05 ENT: Positive for ear pain, sore throat. cp 14:05 Cardiovascular: Negative for chest pain, palpitations. 14:05 Respiratory: Positive for cough, Negative for shortness of breath, wheezing. 14:05 Abdomen/GI: Negative for abdominal pain, nausea, vomiting, and diarrhea. 14:05 All other systems are negative. Exam: 14:10 Constitutional: The patient appears in no acute distress, alert, awake, non-toxic, well cp developed, well nourished. 14:10 Head/Face: Normocephalic, atraumatic. cp 14:10 Eyes: Periorbital structures: appear normal, Conjunctiva: normal, no exudate, no injection, Lids and lashes: appear normal, bilaterally. 14:10 ENT: External ear(s): are unremarkable, Ear canal(s): are normal, clear, TM's: bulging, is not appreciated, bilaterally, dullness, bilaterally, erythema, is not appreciated, bilaterally, Nose: is normal, Mouth: Lips: moist, Oral mucosa: pink and intact, moist, Posterior pharynx: is normal, airway is patent, no erythema, no exudate. 14:10 Neck: Lymph nodes: no appreciated lymphadenopathy. 14:10 Chest/axilla: Inspection: normal, Palpation: is normal, no crepitus, no tenderness. 14:10 Cardiovascular: Rate: normal. 14:10 Respiratory: the patient does not display signs of respiratory distress, Respirations: normal, no use of accessory muscles, no retractions, labored breathing, is not present. 14:10 Abdomen/GI: Inspection: gravid appearance, is noted. Vital Signs: 13:36 BP 111 / 54; Pulse 96; Resp 16; Temp 98.8(TE); Pulse Ox 97% on R/A; Weight 94.35 kg; ss Height 5 ft. 6 in. (167.64 cm); Pain 0/10; 14:31 BP 103 / 57; Pulse 92; Resp 18; Pulse Ox 99% on R/A; em 15:15 BP 124 / 74; Pulse 93; Resp 17; Pulse Ox 97% ; ah 13:36 Body Mass Index 33.57 (94.35 kg, 167.64 cm) ss MDM: 13:52 Patient medically screened. cp 14:10 Differential Diagnosis: Bronchitis Influenza Sinusitis Pharyngitis Viral Syndrome cp Pneumonia. 15:08 Data reviewed: vital signs, nurses notes, lab test result(s), and as a result, I will cp discharge patient. 15:08 Counseling: I had a detailed discussion with the patient and/or guardian regarding: the cp historical points, exam findings, and any diagnostic results supporting the discharge/admit diagnosis, lab results, to return to the emergency department if symptoms worsen or persist or if there are any questions or concerns that arise at home. 15:08 ED course: VSS. Patient appears non-toxic and no signs of respiratory distress. Will cp discharge patient to home to self quarantine. 08/11 13:53 Order name: Influenza Screen (a \T\ B) 08/11 13:53 Order name: Strep cp 08/11 13:53 Order name: COVID-19 08/11 14:59 Order name: Throat Culture EDMS Administered Medications: No medications were administered Disposition: 18:50 Co-signature as Attending Physician, Santiago Spence MD I agree with the assessment and kdr plan of care. Disposition: 08/12/19 15:08 Discharged to Home. Impression: Acute upper respiratory infection, unspecified. - Condition is Stable. - Discharge Instructions: Upper Respiratory Infection, Adult, Viral Respiratory Infection. - Medication Reconciliation Form, Thank You Letter, Antibiotic Education, Prescription Opioid Use form. - Follow up: Private Physician; When: 2 - 3 days; Reason: Worsening of condition. - Problem is new. - Symptoms are unchanged. Signatures: Dispatcher [employer] EDUT Santiago Spence MD MD [facility] Irma Solorzano RN RN Amari Gallardo PA PA cp Rosalina Jacobo RN RN Corrections: (The following items were deleted from the chart) 15:30 15:08 08/12/2019 15:08 Discharged to Home. Impression: Acute upper respiratory ah infection, unspecified. Condition is Stable. Forms are Medication Reconciliation Form, Thank You Letter, Antibiotic Education, Prescription Opioid Use. Follow up: Private Physician; When: 2 - 3 days; Reason: Worsening of condition. Problem is new. Symptoms are unchanged. cp
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
[2019-08-12 15:36] VITALS: TEMP 98.8
[2019-08-12 15:38] VITALS: BP 124/74; O2SAT 97
== END 2019-08-12 15:30 | disposition home or self-care (01) ==
LOC: ER 13:26
DX: J06.9 Acute upper respiratory infection, unspecified (principal); F17.210 Nicotine dependence, cigarettes, uncomplicated; Z11.59 Encounter for screening for other viral diseases
CPT/HCPCS: 87070; 87081; 87804 ×2; 99283; U0001

== ENCOUNTER 2019-09-05 05:23 | Emergency (ER) | payer OTHER ==
--- OUTSIDE RECORDS SUMMARY | 2019-09-05 05:25 | XMS REPORT ---
:1985 Author Organization [facility] Address [address] Kelly [address] [place] [address] Care Team Providers Name Role Phone Unavailable Unavailable Unavailable Problems Condition Condition Condition Status Onset Resolution Last Treatin g Comments Name Details Category Date Date Treatment Clinician Date Acute Acute Problem Active vaginitis vaginitis Encounter Encounter Problem Active for for gynecologic gynecologic al al examination examination without without abnormal abnormal finding finding Folliculiti Folliculiti Problem Active s s Encounter Encounter Problem Active for for surveillanc surveillanc e of e of vaginal vaginal ring ring hormonal hormonal contracepti contracepti ve device ve device Pelvic pain Pelvic pain Problem Active Painful Painful Problem Active menstrual menstrual periods periods Allergies, Adverse Reactions, Alerts This patient has no known allergies or adverse reactions. Medications Ordered Filled Start Stop Current Ordering Indication Dosage Frequency Signature Comments Components Medication Medication Date Date Medication? Clinician (SIG) Name Name Loestrin 24 Loestrin 24 Yes Pal 1 t denise Counts Include 234 B[facility] At [facility] -15 Rekhi 00:00: 00 Encounters Start End Encounter Admission Attending Care Care Encounter Date/Time Date/Time Type Type Clinicians Facility Department ID 2018-09-14 2018-09-14 [id number] 10:01:00 10:01:00 [facility] 2018-08-29 2018-08-29 [id number] 10:44:00 10:44:00 [facility] 2018-07-28 2018-07-28 [id number] 10:00:00 10:00:00 [facility] 2017-12-16 2017-12-16 [id number] 10:00:00 10:00:00 [facility] 2017-10-05 2017-10-05 [facility] [id number] 12:00:00 12:00:00 [facility] 2017-09-29 2017-09-29 [facility] [id number] 11:00:00 11:00:00 [facility]
--- OUTSIDE RECORDS SUMMARY | 2019-09-05 05:25 | XMS REPORT ---
[...] Start Date End Date Status Dosage Flagyl [facility] [id number] 500 MG Orally Active 1 tabl et every 12 hours Results No Known Results Summary Purpose eClinicalWorks Submission
--- OUTSIDE RECORDS SUMMARY | 2019-09-05 05:25 | XMS REPORT ---
[...] End Status Dosage System Date Date Clonazepam [facility]NOTE 2] 61488670371 1 MG Orally Active 1 tab let Once a day Mobic [facility] [place]NOTE 2] 11806598135 7.5 MG Orally Dec 16Jan Active 1 tabl et Once a day 2017 Amphetamine Salt NDC 0 20 MG Orally Active 1 tablet Combo Once a day in the morning Aripiprazole ND 50529675502 15 MG Orally Active 1 tablet Once a day Pristiq ND 49981340854 50 MG Orally Active 1 table t Once a day Results No Known Results Summary Purpose eClinicalWorks Submission
--- OUTSIDE RECORDS SUMMARY | 2019-09-05 05:25 | XMS REPORT ---
[...] End Status Dosage System Date Date NuvaRing [facility] 83656759318 0.12-0.015 Active 1 ring MG/24HR Vaginal insert vaginally for 3 weeks Clonazepam ND 12724211659 1 MG Orally Active 1 tab let Once a day Clindamycin [facility] 12933432837 1 % Externally October 03, Active 1 application Phosphate Twice a day 2018 to affecte d area Aripiprazole [facility] 11759045819 15 MG Orally Active 1 tablet Once a day Pristiq [facility] 18177294101 50 MG Orally Active 1 table t Once a day Amphetamine NDC 0 20 MG Orally Active 1 table t in Salt Combo Once a day the mornin g Results Name Result Date Reference Range Unit Abnormali ty Flag URINALYSIS AUTO W/O SCOPE (69776) ----NIT neg [id number] ----URO 0.2 20171003 ----PROTEIN neg [id number] ----pH 6.0 20171003 ----BLO neg [id number] ----GLUCOSE neg 20171003 ----MIKEL neg 20171003 ----BILIRUBIN neg 20171003 ----KETONES neg 20171003 ----SPECIFIC GRAVITY 1.025 20171003 Summary Purpose eClinicalWorks Submission
--- OUTSIDE RECORDS SUMMARY | 2019-09-05 05:26 | XMS REPORT ---
[...] End Status Dosage System Date Date NuvaRing [facility] 88287909519 0.12-0.015 July Active 1 ring MG/24HR Vaginal 2018 insert vaginally for 3 weeks Aripiprazole [facility] 96917513104 15 MG Orally Active 1 tablet Once a day Amphetamine Salt NDC 0 20 MG Orally Active 1 tablet Combo Once a day in the morning Clonazepam [facility] 06199590382 1 MG Orally Active 1 tab let Once a day Pristiq [facility] 05745215001 50 MG Orally Active 1 table t Once a day Results No Known Results Summary Purpose eClinicalWorks Submission
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
--- OUTSIDE RECORDS SUMMARY | 2019-09-05 05:37 | XMS REPORT | Clinical Summary ---
:1985 Author Organization [facility] - [facility] Address [address] [place] [address] Care Team Providers Name Role Phone Yokasta Corona MD Primary Care Provider Allergies No Known Allergies Medications Medication Sig Dispensed Refills Start Date End Date Status diphenhydrAMINE 25 mg Take one tablet 90 tablet 1 02/13/2019 Active tabletIndications: three times a day Generalized anxiety as needed for disorder anxiety ARIPiprazole 15 mg Take 1 tablet by 30 tablet 1 08/02/2019 Active tabletIndications: mouth daily. Bipolar II disorder desvenlafaxine Take 25 mg by mouth 30 tablet 1 08/02/2019 Active succinate (PRISTIQ) daily. 25 mg [id number]: Depression, unspecified depression type desvenlafaxine Take 1 tablet by 30 tablet 1 08/02/2019 Active succinate (PRISTIQ) mouth daily. 50 mg 24 hr tabletIndications: Depression, unspecified depression type vitamin w/FA Take 1 tablet by 100 tablet 3 08/22/2019 Active tabletIndications: mouth daily. (spontaneous vaginal delivery) docusate calcium 240 Take 1 capsule by 60 capsule 1 08/22/2019 Active mg mouth once daily as capsuleIndications: needed for (spontaneous Constipation. vaginal delivery) ferrous sulfate 325 Take 1 tablet by 60 tablet 2 08/22/2019 Active mg (65 mg iron) mouth 2 (two) times tabletIndications: daily. (spontaneous vaginal delivery) ibuprofen 600 mg Take 1 tablet by 60 tablet 1 08/22/2019 Active tabletIndications: mouth every 6 (six) (spontaneous hours as needed vaginal delivery) (Pain). Take with food or milk. HYDROcodone-acetamino Take 1 tablet by 5 tablet 0 08/22/2019 Active phen 5-325 mg mouth every 6 (six) 0 tabletIndications: hours as needed (spontaneous (for pain) for up vaginal delivery) to 7 days. Do not exceed 3 grams of acetaminophen in 24 hours. Active Problems Problem Noted Date [facility]born , of rod , [facility] [place] [facility] 08/22/2019 delivery Encounter for female sterilization procedure 0 39 weeks gestation of 08/21/2019 Low-lying placenta 08/21/2019 Bipolar disorder 08/21/2019 Obesity (BMI 30-39.9) 12/29/2018 Encounters Date Type Specialty Care Team Description 08/21/2019 Anesthesia Event Surgery Spike Lopes MD Lamb, Michael, MD 08/21/2019 Surgery Surgery Corona, TUBAL LIGATION MD Yokasta 08/21/2019 Anesthesia Event Obstetrics Yasmany Holder MD Smith, Cory, DO 08/21/2019 - Hospital Encounter Obstetrics Corona, 39 weeks gestation of 08/22/2019 Kayli Mckeon MD 08/21/2019 Travel 08/17/2019 Routine Obstetrics & Corona, Supervision of high risk , antepartum (Primary Dx); Visit Gynecology MD Yokasta 38 weeks gestat ion of ; Multiparous; Request for little rilization; Low-lying place nta; Obesity (BMI 30 -39.9); Bipolar affecti ve disorder, remission status unspecified; Anemia affectin g , antepartum 08/17/2019 Travel 08/10/2019 Routine Obstetrics & Corona, Supervision of high risk , antepartum (Primary Dx); Visit Gynecology MD Yokasta 37 weeks gestat ion of ; Low-lying place nta; Obesity (BMI 30 -39.9); Bipolar affecti ve disorder, remission status unspecified; Anemia affectin g , antepartum; Multiparous; Request for little rilization 08/03/2019 Manufacturing Executive Visit Phlebotomy Corona, Supervision of high risk , antepartum; MD Yokasta 36 weeks gestation of 2, Adc Lab 08/03/2019 Routine Obstetrics & Corona, Supervision of high risk , antepartum (Primary Dx); Visit Gynecology MD Yokasta 36 weeks gestat ion of ; Low-lying place nta; Obesity (BMI 30 -39.9); Bipolar affecti ve disorder, remission status unspecified; Anemia affectin g , antepartum; Multiparous; Request for little rilization 08/03/2019 Orders Only Doctor Unassigned, [place] 08/01/2019 Manufacturing Executive Visit Maternal Prem Leonardo impl antation of placenta without hemorrhage; Rashid Cervantes MD Suspected damag e to fetus from drugs, affecting management of mother, antepartum, single or unspecified fetus 08/01/2019 Case Management Public Health & Rosalina Warner Abstract General Preventive Medicine 07/27/2019 Telephone Obstetrics & Corona, Rx Concern/Ques tion Gynecology MD Yokasta 07/24/2019 Telephone Obstetrics & Corona, Orders (Breast Pump Gynecology MD Yokasta Order / [facility]) 07/21/2019 Telephone Obstetrics & Corona, Notification (B reast Gynecology MD Yokasta Pump Order fax[facility] d to [facility]) 07/20/2019 Routine Obstetrics & Corona, Supervision of high risk , antepartum (Primary Dx); Visit Gynecology MD Yokasta 34 weeks gestat ion of ; Depression, uns pecified depression type; Bipolar affecti ve disorder, remission status unspecified; Anemia of mothe r in , antepartum; Low-lying place nta 07/20/2019 Orders Only Doctor Unassigned, [place] 07/19/2019 Telephone Obstetrics & Corona, Rx Concern/Ques tion Joseph Templeton MD 07/10/2019 Manufacturing Executive Visit Maternal HarirahNilesh Low-ly ing placenta; Rashid Hanna MD Suspected [...] depression type 07/06/2019 Orders Only Doctor Unassigned, [place] 07/03/2019 Telephone Obstetrics & Corona, Assessment ([facility] Gynecology MD Yokasta Ankles 33 wks ) 06/13/2019 Refill Obstetrics & Hwang, Melissa, Refill Reque Gynecology 06/12/2019 Manufacturing Executive Visit Maternal Nilesh Ramírez rodrigo damage to Medicine MD Cyndi fetus from drugs, Velasquez affecting manag ement Andres, of mother, MD Sonia antepartum, not applicable or unspecified fet us 06/10/2019 Telephone Obstetrics & Corona, Results Gynecology MD Yokasta 06/09/2019 Manufacturing Executive Visit Phlebotomy Corona, Supervision of high Yokasta MD risk , Pob, Adc Lab antepartum Main 06/09/2019 Routine Obstetrics & Corona, Supervision of high risk , antepartum (Primary Dx); Visit Gynecology MD Yokasta Supervision of high risk in second trimester; Bipolar affecti ve disorder, remission status unspecified; 28 weeks gestat ion of 06/09/2019 Orders Only Doctor Unassigned, [place] from Last 3 Months Immunizations Name Administration [...] Alcohol Use Drinks/Week oz/Week Comments Not Currently Sex Assigned at Date Recorded Not on file Job Start Date Occupation Industry Not on file Not on file Not on file Travel History Travel Start Travel End No recent travel history available. COVID-19 Exposure Response Date Recorded In the last month, have you been in contact with No / Unsure 08/21/2019 6:12 AM CDT someone who was confirmed or suspected to have Coronavirus / COVID-19? Last Filed Vital Signs Vital Sign Reading Time Taken Comments Blood Pressure 124/71 08/22/2019 4:00 PM CDT Pulse 70 08/22/2019 4:00 PM CDT Temperature 36.5 C (97.7 F) 08/22/2019 4:00 PM CDT Respiratory Rate 18 08/22/2019 4:00 PM CDT Oxygen Saturation 99% 08/22/2019 4:00 PM CDT Inhaled Oxygen Concentration - - Weight 95.9 kg (211 lb 8 oz) 08/21/2019 6:44 AM CDT Height 167.6 cm (5' 6") 08/21/2019 6:44 AM CDT Body Mass Index 34.14 08/21/2019 6:44 AM CDT Plan of Treatment Date Type Specialty Care Team Description 08/31/2019 Routine Visit Obstetrics Yokasta Lang MD Gynecology [address] [place] [id number] [phone] 09/14/2019 Telemedicine Visit Bob Calderon MD Gynecology [address] [place] [phone] Health Maintenance Due Date Last Done Comments PNEUMOCOCCAL 0-64 YEARS COMBINED 1993 SERIES (1 of 1 - PPSV23) PAP SMEAR 2008 INFLUENZA VACCINE (#1) 2020 Postponed from 01/01/2019 (Refused) DTaP,Tdap,and Td Vaccines (2 - 06/09/2029 06/09/2019 Td) Procedures Procedure Name Priority Date/Time Associated Comments Diagnosis CBC WITH DIFFERENTIAL Routine 08/22/2019 3:50 Re sults for this AM CDT procedure are i n the results section. CBC WITH DIFFERENTIAL Routine 08/22/2019 3:50 Re sults for this AM CDT procedure are i n the results section. SURGICAL PATHOLOGY EXAM STAT 08/21/2019 7:10 Results for this PM CDT procedure are i n the results section. CENTRAL NEURAXIAL BLOCK Routine 08/21/2019 6:54 Results for this PM CDT procedure are i n the results section. TUBAL LIGATION 08/21/2019 6:23 34yo @ PM CDT 1344 MPDPS CENTRAL NEURAXIAL BLOCK Routine 08/21/2019 12:36 Results for this PM CDT procedure are i n the results section. GALV ONLY - SYPHILIS TOSIN 08/21/2019 8:30 Res ults for this IGG/IGM AM CDT procedure are i n the results section. HEPATITIS B SURFACE TOSIN 08/21/2019 8:30 Resu lts for this ANTIGEN AM CDT procedure are i n the results section. RHO (D) IMMUNE GLOBULIN Routine 08/21/2019 8:12 Results for this AM CDT procedure are i n the results section. HB ABO GROUPING TOSIN 08/21/2019 8:12 Results for this AM CDT procedure are i n the results section. CORONAVIRUS COVID-19 TOSIN 08/21/2019 6:23 Res ults for this TESTING AM CDT procedure are i n the results section. HOSPITAL ADMISSION Routine 08/21/2019 12:01 AM CDT POCT URINALYSIS W/O Routine 08/17/2019 Supervision of high R esults for this SPECIFIC GRAVITY risk , procedur e are in antepartum the results 38 weeks gestation section. of POCT URINALYSIS W/O Routine 08/10/2019 Supervision of high R esults for this SPECIFIC GRAVITY risk , procedur e are in antepartum the results 37 weeks gestation section. of CBC WITH DIFFERENTIAL Routine 08/03/2019 10:18 Supervision of high Results for this AM CDT risk , procedure ar e in antepartum the results 36 weeks gestation section. of CBC WITH DIFFERENTIAL Routine 08/03/2019 10:18 Supervision of high Results for this AM CDT risk , procedure ar e in antepartum the results 36 weeks gestation section. of GROUP B STREPTOCOCCUS Routine 08/03/2019 9:44 Supervision of high Results for this BY PCR AM CDT risk , procedure ar e in antepartum the results 36 weeks gestation section. of GC & CHLAMYDIA Routine 08/03/2019 9:44 Supervision of high Re sults for this AMPLIFIED ASSAY AM CDT risk , procedure are in antepartum the results 36 weeks gestation section. of DSU PRE-OP Routine 08/03/2019 12:01 AM CDT AGREEMENTS Routine 08/03/2019 12:01 AUTHORIZATIONS AND AM CDT IRREVOCABLE ASSIGNMENTS (FORM 2000) POCT URINALYSIS W/O Routine 08/03/2019 Supervision of high R esults for this SPECIFIC GRAVITY risk , procedur e are in antepartum the results 36 weeks gestation section. of SECOND AND THIRD Routine 08/01/2019 11:05 TRIMESTER ULTRASOUND AM CDT DME/SUPPLY Routine 07/24/2019 12:01 JUSTIFICATION AM CDT DME/SUPPLY Routine 07/21/2019 12:01 JUSTIFICATION AM CDT STERILIZATION CONSENT Routine 07/20/2019 12:01 FORM AM CDT INSURANCE Routine 07/12/2019 12:01 CORRESPONDENCE AM CDT SECOND AND THIRD Routine 07/10/2019 11:02 TRIMESTER ULTRASOUND AM CDT INSURANCE Routine 07/06/2019 12:01 CORRESPONDENCE AM FRONT MAKER LOCKSTITCH POCT URINALYSIS W/O Routine 07/06/2019 Supervision of high R esults for this SPECIFIC GRAVITY risk , procedur e are in antepartum the results section. SECOND AND THIRD Routine 06/12/2019 10:41 TRIMESTER ULTRASOUND AM FRONT MAKER LOCKSTITCH CBC WITH DIFFERENTIAL Routine 06/09/2019 11:19 Supervision of high Results for this AM FRONT MAKER LOCKSTITCH risk , procedure ar e in antepartum the results section. ADC OR PAMELA ONLY - Routine 06/09/2019 11:19 Supervision of high Results for this RPR AM FRONT MAKER LOCKSTITCH risk , procedure ar e in antepartum the results section. HIV 1/2 AG-AB WITH Routine 06/09/2019 11:19 Supervision of hig h Results for this REFLEX AM FRONT MAKER LOCKSTITCH risk , procedure ar e in antepartum the results section. CBC WITH DIFFERENTIAL Routine 06/09/2019 11:19 Supervision of high Results for this AM FRONT MAKER LOCKSTITCH risk , procedure ar e in antepartum the results section. GLUCOSE 1 HOUR POST Routine 06/09/2019 11:19 Supervision of hi gh Results for this PRANDIAL AM FRONT MAKER LOCKSTITCH risk , procedure ar e in antepartum the results section. HB ABO GROUPING Routine 06/09/2019 11:11 Supervision of high R esults for this AM FRONT MAKER LOCKSTITCH risk , procedure ar e in antepartum the results section. TDAP (ADACEL) Routine 06/09/2019 10:43 Supervision of high IMMUNIZATION AM FRONT MAKER LOCKSTITCH risk , antepartum Supervision of high risk in second trimester Bipolar affective disorder, remission status unspecifi ed 28 weeks gestation of AGREEMENTS Routine 06/09/2019 12:01 AUTHORIZATIONS AND AM FRONT MAKER LOCKSTITCH IRREVOCABLE ASSIGNMENTS (FORM 2000) POCT URINALYSIS W/O Routine 06/09/2019 Supervision of high R esults for this SPECIFIC GRAVITY risk in proced ure are in second trimester the results 28 weeks gestation section. of from Last 3 Months Results CBC WITH DIFFERENTIAL (08/22/2019 3:50 AM CDT)Only the most recent of3 results within the time period is included. Pathologist Sig nature WBC 14.00 (H) 4.30 - 11.10 [facility] 10*3/L SERVICES RBC 3.61 (L) 3.93 - 5.25 [facility] 10*6/L SERVICES HGB 9.2 (L) 11.6 - 15.0 [facility] g/dL SERVICES HCT 29.1 (L) 35.7 - 45.2 % [facility] SERVICES MCV 80.6 80.6 - 95.5 fL [facility] SERVICES MCH 25.5 (L) 25.9 - 32.8 pg [facility] SERVICES MCHC 31.6 31.6 - 35.1 [facility] g/dL SERVICES RDW-SD 44.6 39.0 - 49.9 fL [facility] SERVICES RDW-CV 15.4 12.0 - 15.5 % [facility] SERVICES PLT 200 166 - 358 [facility] 10*3/L SERVICES MPV 10.1 9.5 - 12.9 fL [facility] SERVICES NRBC/100 WBC 0.0 0.0 - 10.0 /100 [facility] WBCs SERVICES NRBC x10^3 <0.01 10*3/L [facility] SERVICES GRAN MAT (NEUT) % 69.7 % [facility] SERVICES IMM GRAN % 0.90 % [facility] SERVICES LYMPH % 22.3 % [facility] SERVICES MONO % 5.8 % [facility] SERVICES EOS % 1.1 % [facility] SERVICES BASO % 0.2 % [facility] SERVICES GRAN MAT x10^3(ANC) 9.76 (H) 1.88 - 7.09 [facility] 10*3/uL SERVICES IMM GRAN x10^3 0.12 (H) 0.00 - 0.06 [facility] 10*3/uL SERVICES LYMPH x10^3 3.12 1.32 - 3.29 [facility] 10*3/uL SERVICES MONO x10^3 0.81 0.33 - 0.92 [facility] 10*3/uL SERVICES EOS x10^3 0.16 0.03 - 0.39 [facility] 10*3/uL SERVICES BASO x10^3 0.03 0.01 - 0.07 [facility] 10*3/uL SERVICES Specimen Blood - ARM, RIGHT Performing Organization Address City/State/Zipcode Phone Number [facility] SERVICES CLIA: [id number], [address] [place], [place] [address] [facility] SURGICAL PATHOLOGY EXAM (08/21/2019 7:10 PM CDT) Case Report Surgical Pathology Case: [id number] [facility] Authorizing Provider: Yokasta Johnson MD Collected: 08/21/2019 1910 SERVICES Ordering Location: Lab or and Delivery ([facility]) Received: 08/22/2019 1226 Pathologist: Kirk Sánchez MD Specimens: A) - FALLOPIAN TUBE, RIGHT B) - FALL OPIAN TUBE, LEFT Final Diagnosis [facility] Nagii onyeda A. FALLOPIAN TUBE, RIGHT, SEGMENTAL RESECTION: SERVICES signed by Gonzalo, - FULL CROSS SECTION OF FALLOPIAN TUBE IDENTIFIED Kirk Oliveros MD on 08/23/2019 at 10 :47 B. FALLOPIAN TUBE, LEFT, SEGMENTAL RESECTION: AM - FULL CROSS SECTION OF FALLOPIAN TUBE IDENTIFIED Juan Carlos Barroso MD 08/23/2019 9:06 AM I have personally reviewed a ll specimens/slides and agree with all statements made by residents, fellows or pathologist assistants whose name(s) may appear on this report. Clinical 34yo s/p [facility] Information [facility] SERVICES Gross Description [facility] with the patient's name, number, "fallopian tube, right" and consists of a single strickland-pink segment of fallopian tube (1.7 in length x 0.5 cm in length) [facility] LABORATORY h is serially sectioned to r eveal strickland-pink, grossly unremarkable cut surfaces. Tonguer sections are submitted in A1. SERVICES Specimen B is received in rmalin labeled with the patient's name, number, "fallopian tube, left" and consists of a single strickland-pink segment of fallopian tube (1.6 in length x 0.4 cm in diameter) [facility] is serially sectioned to reveal strickland-pink, grossly unremarkable cut surfaces. Tonguer sections are submitted in B1. DANNY Castillo Embedded Images [facility] SERVICES Specimen Tissue - FALLOPIAN TUBE, RIGHT Tissue specimen (specimen) - FALLOPIAN T UBE, RIGHT Performing Organization Address City/State/Zipcode Phone Number [facility] SERVICES CLIA: [id number], [address] [place] [address] [facility] Central Neuraxial Block (08/21/2019 6:54 PM CDT)Only the most recent of2 resultswithin the time period is included. Narrative Performed At Spike Wilkins MD 08/21/2019 6:57 PM Central Neuraxial Block Performed by: Spike Wilkins MD Authorized by: Spike Lopes MD Start Time: 08/21/2019 6:43 PM End Time: 08/21/2019 6:44 PM Reason for Block: Surgical anesthesia Staff: Anesthesiologist: Spike Lopes MD Resident/JANITOR SUPERVISOR: Spike Wilkins MD Performed by: Resident/JANITOR SUPERVISOR patient identified, IV checked, risks a nd benefits explained, monitors and equipment checked, timeout performed , ob surgical consent/approval, pre-op evaluation, surgical consent, sit e marked and anesthesia consent Epidural: Patient Position: Sitting Prep: Betadine Monitoring: heart rate / toco and NIBP Location: Lumbar (1-5) Lumbar: L4-L5 Approach: Midline Injection Technique: DAVID saline Needle and Epidural Catheter: Epidural Kit: BBraun Needle Type: Tuohy Needle Length: 3.5 in (8.89 cm) Catheter Type: End hole Test Dose: No test dose Notes: Pt prepped and draped in usual sterile fashion aft er informed consent obtained. Lidocaine infiltrated over L4- 5 interspace. Spinal needle advanced until return of fluid, medications instilled with good barbotage. Pt tolerated well. Fall precautions disc ussed. ___ __ GALV ONLY - SYPHILIS IGG/IGM (08/21/2019 8:30 AM CDT) Pathologist Sig nature SYPH IGG Non-reactiveComment: Non-reactive [facility] Only Syphilis IgG SERVICES tested. Syphilis IgG/IgM assay reagents not available at the time of testing. Specimen Blood - VENOUS Narrative Performed At [facility] SERVICES Non-reactive - No serologic evidence of T. pallidum infection. Cannot exclude incubating or early syphilis . Submit a second specimen in 2-4 weeks if syphilis is clinically suspected. Equivocal - Further testing to follow. Reactive - Further testing to follow. Performing Organization Address City/[facility] Phone Number [facility] CLIA: [id number], [address] [place] [address] [facility] Hepatitis B Surface Antigen (08/21/2019 8:30 AM CDT) Pathologist Sig nature HBsAg Negative Negative [facility] SERVICES HBsAg 0.04 [facility] Semi-Quantitative SERVICES Specimen Blood - VENOUS Performing Organization Address [facility] Phone Number [facility] SERVICES CLIA: [id number], [address] [place] [address] [facility] RHO (D) IMMUNE GLOBULIN (08/21/2019 8:12 AM CDT) Pathologist Sig nature RHIG CANDIDATE? No- see comment LAB Comment: Patient is not a candidate for RhIg- Patient is Rh Pos itive. Performed at [facility] Laboratory Services - [facility] Blood [place] [address] Toll Free: [phone] CLIA No. [id number] Specimen Blood - VENOUS Performing Organization Address [facility] Phone Number [facility] LAB Type and Screen - ONCE TOSIN (08/21/2019 8:12 AM CDT) Pathologist Sig nature ABO & RH O POSITIVE LAB Comment: Performed at [facility] Laboratory Services - [facility] Blood [place] [address] Toll Free: [phone] CLIA No. [id number] IAT Negative LAB Comment: Performed at [facility] Laboratory Services - [facility] Blood [place] [address] Toll Free: [phone] CLIA No. [id number] Specimen Blood Performing Organization Address City/[facility]ode Phone Number D LAB CORONAVIRUS COVID-19 TESTING (08/21/2019 6:23 AM CDT) Pathologist Sig nature SARS-CoV-2 Not Detected Not Detected [facility] SERVICES Specimen Swab - NASOPHARYNGEAL SWAB Narrative Performed At ID NOW COVID-19 Assay is an isothermal nucleic acid [facility] SERVICES amplification test intended for the qualitative detect ion of nucleic acid from SARS-CoV-2 viral RNA in nasopharynge al (COBOL MAINFRAME DEVELOPER) specimens. It is used under Emergency Use Authori zation (EUA) by FDA. The limit of detection (LOD) of the assa y is 125 Genome Equivalents/mL. A positive result is indicative of the presence of SARS-CoV-2 RNA. Clinical correlation with patient hi story and other diagnostic information is necessary to deter mine patient infection status. A negative (Not Detected) result does not preclude SARS-CoV-2 infection. Clinical correlation with patien t history and other diagnostic information should be use d in patient management decisions. Invalid: Please collect a new specimen for repeat nuris ent testing if clinically indicated. Performing Organization Address City/State/Zipcode Phone Number [facility] SERVICES CLIA: [id number], [address] [place] [address] [facility] HOSPITAL ADMISSION (08/21/2019 12:01 AM CDT) Specimen Performing Organization Address City/[facility]/Zipcode Phone Number HIM POCT URINALYSIS W/O SPECIFIC GRAVITY (08/17/2019)Only the most recent of5 resultswithin the time period is included. Pathologist Sig nature POCT PH U n/a 5 - 8 mg/dl POCT U LEUK EST n/a Negative - Negative POCT U NIT n/a Negative - Negative POCT U PROT neg Negative - Negative POCT U GLU neg Negative - Negative POCT U KETONE n/a Negative - Negative POCT U BLD n/a Negative - Negative Specimen Urine - URINE, CLEAN CATCH GROUP B STREPTOCOCCUS BY PCR (08/03/2019 9:44 AM CDT) Pathologist Sig nature Group B Streptococcus by Negative Negative [facility] PCR SERVICES Specimen Swab - ANAL/VAGINAL Performing Organization Address City/[facility]/Zipcode Phone Number [facility] SERVICES CLIA: [id number], [address] [place] [address] [facility] GC & CHLAMYDIA AMPLIFIED ASSAY (08/03/2019 9:44 AM CDT) Pathologist Sig nature C. trachomatis Nucleic Negative Negative [facility] Acid SERVICES N. gonorrhoeae Nucleic Negative Negative [facility] Acid SERVICES Specimen Urine - Urine, First Catch (First Void) Performing Organization Address City/State/Zipcode Phone Number [facility] SERVICES CLIA: [id number], [address] [place], [place] [address] [facility] DSU PRE-OP (08/03/2019 12:01 AM CDT) Specimen Performing Organization Address City/State/Zipcode Phone Number [facility] AGREEMENTS AUTHORIZATIONS AND IRREVOCABLE ASSIGNMENTS (FORM 2001) (08/03/2019 12:01 AM CDT)Only the most recent of2 resultswithin the time period is included. Specimen Performing Organization Address City/State/[facility] Cent[facility]ode Phone Number [facility] SECOND AND THIRD TRIMESTER ULTRASOUND (08/01/2019 11:05 AM CDT)Only the most recent of3 resultswithin the time period is included. Specimen DME/SUPPLY JUSTIFICATION (07/24/2019 12:01 AM CDT)Only the most recent of2 resultswithin the time period is included. Specimen Performing Organization Address City/State/Zipcode Phone Number [facility] STERILIZATION CONSENT FORM (07/20/2019 12:01 AM CDT) Specimen Performing Organization Address [facility]/State/[facility] Centercode Phone Number [facility] INSURANCE CORRESPONDENCE (07/12/2019 12:01 AM CDT)Only the most recent of2 resultswithin the time period is included. Specimen Performing Organization Address City/State/Zipcode Phone Number [facility] HIV 1/2 AG-AB WITH REFLEX (06/09/2019 11:19 AM [employer]OCK[employer]) Pathologist Sig nature HIV 1/2 Ag-Ab with Negative Negative [facility] LABORATORY HIV Semi-quantitative 0.05 [facility] Specimen Blood Narrative Performed At Non-reactive for HIV-1 antigen and HIV-1/HIV-2 [facility] antibodies. No laboratory evidence of HIV infection. Repeat in 2-4 weeks if acute HIV infection is suspected. Performing Organization Address City/State/Zipcode Phone Number [facility] CLIA: [id number], [address], [place] [address] ADC OR PAMELA ONLY - RPR (06/09/2019 11:19 AM FRONT [employer]KER LOCKSTITCH) Pathologist Sig nature RPR (Qualitative) Nonreactive Nonreactive [facility] Specimen Blood Performing Organization Address City/[facility]/Zipcode Phone Number [facility] CLIA: [id number], [address], [place] [address] GLUCOSE 1 HOUR POST PRANDIAL (06/09/2019 11:19 AM FRONT MAKER LOCKSTITCH) Pathologist Sig nature GLUC 1 HR 88 (L) 120 - 170 mg/dL [facility] Specimen Blood Performing Organization Address [facility]/Zipcode Phone Number [facility] CLIA: [id number], [address], [place] [address] WORKUP, BLOOD BANK (06/09/2019 11:11 AM FRONT MAKER LOCKSTITCH) Pathologist Sig nature ABO & RH O Positive LAB Comment: Performed at [facility] Laboratory Services - [facility] Blood Bank [address] [place], [place] [address] Toll Free: [phone] CLIA No. [id number] IAT Negative LAB Comment: Performed at [facility] Laboratory [facility] Blood Bank [address] [place], [place] [id number] Toll Free: [phone] CLIA No. [id number] Specimen Blood - VENOUS Performing Organization Address City/State/Zipcode Phone Number [facility] from Last 3 Months Insurance Payer Benefit Plan / Subscriber ID Effective Phone Address T ype Group Dates [facility] xxxxxxxxx 2017-Ann P.Uriel PIERCE Medic aid HEALTH CHOICE - HEALTH CHOICE nt [id number] MANAGED MEDICAID [place], [place] [phone]
--- OUTSIDE RECORDS SUMMARY | 2019-09-05 05:37 | XMS REPORT | Summary of Care ---
:1985 Author Organization [facility] - Health Address [address] [place] [id number] Care Team Providers Name Role Phone Yokasta Corona MD Primary Care Provider Reason for Referral (Routine) Status Reason Specialty Diagnoses / Referred By Referred To Procedures Contact Contact New Request Obstetrics & Diagnoses Liveborn infant, of rod , born in hospital by vaginal delivery Chloe [facility] Gynecology Procedures DISCHARGE FOLLOW-UP: PRIVATE PHYSICIAN MD Yokasta [address] [id number] [place], [place] Phone: [phone] Phone: (Routine) Status Reason Specialty Diagnoses / Referred By Referred To Procedures Contact Contact New Request Obstetrics & Diagnoses (spontaneous vaginal delivery) Yokasta Corona, Gynecology Procedures DISCHARGE FOLLOW-UP: PRIVATE PHYSICIAN [address] [place] [phone] Reason for Visit Auth/Cert Status Reason Specialty Diagnoses / Referred By Contact Refe rred To Contact Procedures Obstetrics Diagnoses 39 wks gestation of [address] [phone] Phone: Fax: Encounter Details Date Type Department Care Team Description 08/21/2019 - Hospital Mother Baby Unit Kayli Corona gestation 08/22/2019 Encounter ([id number] Mckeon MD of [address] [place] [id number] Allergies No Known Allergiesdocumented as of this encounter (statuses as of 08/22/2019) Medications Medication Sig Dispensed Refills Start End Date Status Date diphenhydrAMINE 25 Take one tablet 90 tablet 1 Active mg three times a day 9 tabletIndications: as needed for Generalized anxiety anxiety disorder ARIPiprazole 15 mg Take 1 tablet by 30 tablet 1 Active tabletIndications: mouth daily. 0 Bipolar II disorder desvenlafaxine Take 25 mg by 30 tablet 1 A ctive succinate (PRISTIQ) mouth daily. 0 25 mg [id number]: Depression, unspecified depression type desvenlafaxine Take 1 tablet by 30 tablet 1 Active succinate (PRISTIQ) mouth daily. 0 50 mg 24 hr tabletIndications: Depression, unspecified depression type vitamin Take 1 tablet by 100 tablet 3 Active w/FA mouth daily. 0 tabletIndications: (spontaneous vaginal delivery) docusate calcium Take 1 capsule by 60 capsule 1 Active 240 mg mouth once daily 0 capsuleIndications: as needed for (spontaneous Constipation. vaginal delivery) ferrous sulfate 325 Take 1 tablet by 60 tablet 2 Active mg (65 mg iron) mouth 2 (two) 0 tabletIndications: times daily. (spontaneous vaginal delivery) ibuprofen 600 mg Take 1 tablet by 60 tablet 1 Active tabletIndications: mouth every 6 0 (spontaneous (six) hours as vaginal delivery) needed (Pain). Take with food or milk. HYDROcodone-acetami Take 1 tablet by 5 tablet 0 Active nophen 5-325 mg mouth every 6 0 20 tabletIndications: (six) hours as (spontaneous needed (for pain) vaginal delivery) for up to 7 days. Do not exceed 3 grams of acetaminophen in 24 hours. methocarbamol 750 0 08/22/19 Di scontinued mg tablet 9 20 dextroamphetamine-a 0 08/22/19 Discontinued mphetamine 20 mg 9 20 tablet vit Take by mouth. 0 08/22/19 D iscontinued calc,iron,folic 20 ( VITAMIN ORAL) nutritional Take by mouth. 0 08/22/19 Di scontinued supplement/fiber 20 (JUICE PLUS FIBRE ORAL) proMETHazine 25 mg Take 1 tablet by 15 tablet 1 08/02 Discontinued tabletIndications: mouth every 6 9 20 Nausea/vomiting in (six) hours as needed for Nausea and Vomiting (N/V). ferrous sulfate Take 1 tablet by 60 tablet 2 0 Discontinued (IRON, FERROUS mouth 2 (two) 0 20 SULFATE,) 325 mg times daily. (65 mg iron) tabletIndications: Anemia affecting , antepartum ascorbic acid, Take 1 tablet by 90 tablet 2 08/22/19 Discontinued vitamin C, 500 mg mouth 3 (three) 0 20 tabletIndications: times daily. Anemia affecting , antepartum documented as of this encounter (statuses as of 08/22/2019) Active Problems Problem Noted Date Liveborn infant, of rod , [facility] in [facility] by vaginal 08/22/2019 delivery Encounter for female sterilization procedure 0 39 weeks gestation of 08/21/2019 Low-lying placenta 08/21/2019 Bipolar disorder 08/21/2019 Obesity (BMI 30-39.9) 12/29/2018 documented as of this encounter (statuses as of 08/22/2019) Immunizations Name Administration Dates Next Due TDAP [...] Mass Index 34.14 08/21/2019 6:44 AM CDT documented in this encounter Discharge Summaries Yokasta Corona MD - 08/22/2019 10:49 AM CDT DISCHARGE SUMMARY - ADMIT DATE: 08/21/2019 DISCHARGE DATE: 08/22/19 ATTENDING MD AT DISCHARGE: Dr. Yokasta Corona REASON FOR ADMISSION 39 weeks gestation of Elective Induction of Labor FINAL DIAGNOSIS: 39 weeks gestation of Obesity (BMI 30-39.9) Low-lying placenta Bipolar disorder Liveborn , of rod , born in hospital by vaginal delivery Encounter for female sterilization procedure SECONDARY DIAGNOSIS: Past Medical History: Diagnosis Date Anemia Anxiety Chlamydia 2014 Depression Bipolar Mental disorder Pap smear abnormality of cervix STD (sexually transmitted disease) Substance abuse PROCEDURES: Procedure: TUBAL LIGATION CPT(R) Code: 58522 - [place] [facility]RSE: Briefly, Yuli Talbert is a 34 year old who was admitted to [facility] on 08/21/2019 for elective induction of labor. She underwent a Cephalic vaginal delivery. Patient also underwent a bilateral tubal ligation during this hospitalization. She was ambulating, tolerating a regulardiet with good pain control on day # 1. The patient is medically stable for discharge home to the care of her family with care instructions reviewed and with home meds prescribed. She is to follow-up in clinic as directed. CONDITION: Good DIET: Regular Diet; Texture: Regular Texture: Regular.ACTIVITY: Physical activities as tolerated. No strenuous exercise or heavy lifting until 6-8 weeks . DISCHARGE MEDICATIONS: Current Discharge Medication List START taking these medications Details docusate calcium (SURFAK) 240 mg Take 240 mg by mouth once daily as needed for Constipation. Qty: 60 capsule, Refills: 1 Start date: 08/22/2019 Associated Diagnoses: (spontaneous vaginal delivery) HYDROcodone-acetaminophen (NORCO 5) 1 tablet Take 1 tablet by mouth every 6 (six) hours as needed (for pain). Do not exceed 3 grams of acetaminophen in 24 hours. Qty: 5 tablet, Refills: 0 Start date: 08/22/2019, End date: 08/29/2019 Associated Diagnoses: (spontaneous vaginal delivery) ibuprofen (IBU) 600 mg Take 600 mg by mouth every 6 (six) hours as needed (Pain). Take with food or milk. Qty: 60 tablet, Refills: 1 Start date: 08/22/2019 Associated Diagnoses: (spontaneous vaginal delivery) vitamin w/FA (PRENATABS RX) 1 tablet Take 1 tablet by mouth daily. Qty: 100 tablet, Refills: 3 Start date: 08/22/2019 Associated Diagnoses: (spontaneous vaginal delivery) CONTINUE these medications which have CHANGED Details ferrous sulfate 325 mg Take 325 mg by mouth 2 (two) times daily. Qty: 60 tablet, Refills: 2 Start date: 08/22/2019 Associated Diagnoses: (spontaneous vaginal delivery) CONTINUE these medications which have NOT CHANGED Details ARIPiprazole (ABILIFY) 15 mg Take 15 mg by mouth daily. Qty: 30 tablet, Refills: 1 Associated Diagnoses: Bipolar II disorder !! desvenlafaxine succinate (PRISTIQ) 25 mg Take 25 mg by mouth daily. Qty: 30 tablet, Refills: 1 Associated Diagnoses: Depression, unspecified depression type !! desvenlafaxine succinate (PRISTIQ) 50 mg Take 50 mg by mouth daily. Qty: 30 tablet, Refills: 1 Associated Diagnoses: Depression, unspecified depression type diphenhydrAMINE 25 mg tablet Take one tablet three times a day as needed for anxiety Qty: 90 tablet, Refills: 1 Associated Diagnoses: Generalized anxiety disorder !! - Potential duplicate medications found. Please discuss with provider. STOP taking these medications ascorbic acid (vitamin C) (VITAMIN C) 500 mg Comments: Reason for Stopping: proMETHazine (PHENERGAN) 25 mg Comments: Reason for Stopping: dextroamphetamine-amphetamine 20 mg tablet Comments: Reason for Stopping: methocarbamol 750 mg tablet Comments: Reason for Stopping: nutritional supplement/fiber (JUICE PLUS FIBRE ORAL) Comments: Reason for Stopping: vit calc,iron,folic ( VITAMIN ORAL) Comments: Reason for Stopping: WOUND CARE: The patient was instructed to keep delivery lacerations (if any) clean and dry with soap and water in shower, dry gently with clean towel. She was instructed to return to ER if Temp > 101F, foul-smelling vaginal discharge, headache unresolved with pain medications, visual disturbances including double or blurry vision, seeing spots, upper abdominal pain, or vaginal bleeding greater than 1 pad per hour. Pelvic rest 4-6 weeks, and no heavy lifting. DISCHARGE: Discharged: Home FOLLOW-UP APPOINTMENT: Future Appointments Date Time Provider Department Center 08/31/2019 8:30 AM Yokasta Corona MD [facility] 09/06/2019 3:15 PM [facility] 09/14/2019 10:00 AM Yokasta Corona MD [facility] Yokasta Corona MD documented in this encounter Discharge Instructions Nirmala Chowdary RN - 08/22/2019 Patient Discharge Instructions Instrucciones para el paciente al jennifre de berta Rubella: Rubella screen IgG (no units) Date Value 12/29/2018 Positive Hgb/HCT: HGB (g/dL) Date Value 08/22/2019 9.2 (L) , HCT (%) Date Value 08/22/2019 29.1 (L) ABO Type: ABO & RH (no units) Date Value 08/21/2019 O POSITIVE Patient Discharge Instructions Take Home Medications These are medications ordered for you by your healthcare provider. Do not take any other medicationsor supplements unless advised by your healthcare provider. Medicamentos tomados en casa: Estos son medicamentos ordenados por fung proveedor de servicios mdicos. No tome ningn otro medicamento o suplemento a menos que sea aconsejado por fung proveedor. Current Discharge Medication List START taking these medications Details docusate calcium (SURFAK) 240 mg Take 240 mg by mouth once daily as needed for Constipation. Qty: 60 capsule, Refills: 1 Start date: 08/22/2019 Associated Diagnoses: (spontaneous vaginal delivery) HYDROcodone-acetaminophen (NORCO 5) 1 tablet Take 1 tablet by mouth every 6 (six) hours as needed (for pain). Do not exceed 3 grams of acetaminophen in 24 hours. Qty: 5 tablet, Refills: 0 Start date: 08/22/2019, End date: 08/29/2019 Associated Diagnoses: (spontaneous vaginal delivery) ibuprofen (IBU) 600 mg Take 600 mg by mouth every 6 (six) hours as needed (Pain). Take with food or milk. Qty: 60 tablet, Refills: 1 Start date: 08/22/2019 Associated Diagnoses: (spontaneous vaginal delivery) vitamin w/FA (PRENATABS RX) 1 tablet Take 1 tablet by mouth daily. Qty: 100 tablet, Refills: 3 Start date: 08/22/2019 Associated Diagnoses: (spontaneous vaginal delivery) CONTINUE these medications which have CHANGED Details ferrous sulfate 325 mg Take 325 mg by mouth 2 (two) times daily. Qty: 60 tablet, Refills: 2 Start date: 08/22/2019 Associated Diagnoses: (spontaneous vaginal delivery) CONTINUE these medications which have NOT CHANGED Details ARIPiprazole (ABILIFY) 15 mg Take 15 mg by mouth daily. Qty: 30 tablet, Refills: 1 Associated Diagnoses: Bipolar II disorder !! desvenlafaxine succinate (PRISTIQ) 25 mg Take 25 mg by mouth daily. Qty: 30 tablet, Refills: 1 Associated Diagnoses: Depression, unspecified depression type !! desvenlafaxine succinate (PRISTIQ) 50 mg Take 50 mg by mouth daily. Qty: 30 tablet, Refills: 1 Associated Diagnoses: Depression, unspecified depression type diphenhydrAMINE 25 mg tablet Take one tablet three times a day as needed for anxiety Qty: 90 tablet, Refills: 1 Associated Diagnoses: Generalized anxiety disorder !! - Potential duplicate medications found. Please discuss with provider. STOP taking these medications ascorbic acid (vitamin C) (VITAMIN C) 500 mg Comments: Reason for Stopping: proMETHazine (PHENERGAN) 25 mg Comments: Reason for Stopping: dextroamphetamine-amphetamine 20 mg tablet Comments: Reason for Stopping: methocarbamol 750 mg tablet Comments: Reason for Stopping: nutritional supplement/fiber (JUICE PLUS FIBRE ORAL) Comments: Reason for Stopping: vit calc,iron,folic ( VITAMIN ORAL) Comments: Reason for Stopping: Follow-up Appointments/Key citas: The following appointments have been made for you: Las siguientes citas se hicieron para usted: Provider Place Date Time Follow instructions as indicated below: Siga las instrucciones que se le indican a continuacin: Discharge Orders Regular Diet; Texture: Regular. Texture Regular. Diabetic: No Regular Diet; Texture: Regular. Texture Regular. Diabetic: No Discharge Condition - GOOD Discharge Condition: GOOD Discharge Activity: - Ambulate with Pelvic Rest x 6 weeks DISCHARGE FOLLOW-UP: PRIVATE PHYSICIAN Order Comments: F/u with Dr. Yokasta Corona in 6 weeks for PP visit Physician / RN PROCEDURES Referring Physician When: Other - See Comment Patient Discharge Instructions - Vaginal Delivery Order Comments: Keep BTL incision clean and dry with soap and water in shower, dry gently with cleantowel. Return to ER if Temp > 100.4 F, redness around or pus from incision, headache unresolvedwith pain medications, visual disturbances including double or blurry vision, seeing spots, or upperabdominal pain. Pelvic rest 4 to 6 weeks, and no heavy lifting. Discharge Condition - GOOD Discharge Condition: GOOD Discharge Activity: - Ambulate with Pelvic Rest x 6 weeks DISCHARGE FOLLOW-UP: PRIVATE PHYSICIAN Order Comments: For Patients - return to clinic in 7-10 days for staple removal. If [facility] clinic, Nursing Staff to call clinic for follow-up appointment. Patient will f/u with Dr. Yokasta Corona in 1 week as scheduled with her clinic. Physician / RN PROCEDURES Referring Physician When: 1 Week Patient Discharge Instructions - Vaginal Delivery Order Comments: Return to ER if Temp > 100.4 F, headache unresolved with pain medications, visual disturbances including double or blurry vision, seeing spots, or upper abdominal pain. Pelvic rest 4 to 6 weeks, and no heavy lifting. Weight: In general, sudden weight gains or losses should be reported to your provider. Cardiac patients should weigh daily and notify their provider for a weight gain of 3 pounds per day or 5 pounds per week. Peso: En general, la perdida aumento repentino de peso deber ser reportado a fung proveedor. Lospacientes cardiacos, debern pesarse a diario y notificar a fung proveedor si tienen un aumento de 3 libras por da o 5 libras por semana. Tobacco Avoidance: Follow recommendations below Para evitar el Tabaco: Siga las recomendaciones a continuacin. To schedule other appointments, call the [facility] [place], [place] at or1- . You may also make appointments online by going to [email or web address] and follow the Request Appointment quicklink. Para programar otras citas, llame al [facility] marlene de [facility] al o al . Ck jacobs puede hacer citas por internet, vaya a [email or web address] y sandy la conexin con solicitud citas (Request Appointment) For questions regarding follow-up instructions call the [facility] [place] [place] at or Para preguntas relacionadas con las instrucciones del seguimiento llame al For worsening symptoms/changing condition/problems or questions: Si los sntomas empeoran/cambios de condicin/problemas o preguntas, llame: Non-emergency/urgent: Call the [facility] [place], [place] at or 1- or No emergencia/urgencia: Llame al [facility] de [facility] de [facility] Emergency: Go to the closest emergency room or call [phone] Emergencia: Vaya a la rosalba de emergencia ms cercana o llame al [phone] Our Goal is to Always Provide You with Very Good Care! We will be mailing you a survey, Please complete and return at your convenience. Thank You [facility] [place] es Ofrecerle a Usted Siempre, diandra muy buena atencin. Nosotros le enviaremos diandra encuesta, por favor llnela y regrsela segn pueda. Christi Multidisciplinary Discharge Instructions (may include diet, dressing changes, activity limits, written materials given to patient: DIET: Eat a well balanced diet; drink 6-8 glasses of fluids daily; eat fruits and green, leafy vegetables. DAILY ACTIVITIES: 1. As much as you feel able to do. Rest when you are tired. 2. Limitations: Specify; No heavy lifting other than your baby for 4 weeks if you had surgery. TREATMENT AT HOME 1. Use a well-fitting bra to prevent breast engorgement 2. Resume intercourse as instructed by your physician. 3. Do not use douches or tampons for four weeks. 4. To help prevent urinary tract infection; after each urination and bowelmovement, wipe and dry from front to back and change peripad. 5. Follow discharge instructions regarding baby care. 6. Follow family planning instructions. IMMEDIATE TREATMENT Call Clinic or Your Physician 1. Increase in pain and tenderness of uterus. 2. Increased vaginal bleeding (bright red blood which soaks 2 pads in 1hour or pass large clots). 3. Foul smelling vaginal discharge. 4. Burning in the tube that empties the urine from the bladder. 5. Painful breast engorgement or cracked nipples. 6. Pain, discharges, or gaping incision. 7. Temperature greater than 38.0C or 100.4F 8. Pain and tenderness of calf or thigh muscles. 9. No bowel movements in 4 days. Instrucciones multidisciplinarias para jennifer de berta (pueden incluir, dieta, cambio de gasas, limitacin de actividades, material escrito para entregar al paciente): DIETA: Mantenga diandra dieta leigha balanceada; tome de 6 a 8 vasos de lquidos al da; coma frutas, hortalizas y vegetales. ACTIVIDADES DIARIAS: 1. Mantngalas mientras pueda. Descanse si se siente cansada, 2. Limitaciones: No levante nada ms pesado que fung hijo por cuatro semanas si tuvo diandra operacin. FUNG CUIDADO EN CASA: 1. Use un sostn que le ajuste leigha para evitar que se le llenen demasiados los pechos. 2. Resuma key relaciones sexuales segn le indique fung doctor. 3. No use duchas ni tampones por 4 semanas. 4. Para ayudar a prevenir infecciones urinarias, despus de orinar y defecar, lmpiese de adelante hacia atrs y cmbiese la toalla sanitaria. 5. Siga las instuciones sobre el cuidado del beb. 6. Siga las instrucciones sobre planificacin familiar. TRATAMIENTO INMEDIATOLlame a la clnica o a fung doctor si: 1. Aumenta el dolor o sensibilidad en la matriz. 2. Aumenta el sangramiento vaginal (juan cole brillante que pueda llenar 2 toallas sanitarias en diandra hora o si tiene cogulos grandes). 3. Tiene desecho vaginal con mal olor. 4. Tiene ardor cuando orina. 5. Siente dolor en los pechos porque estn muy llenos o grietas en los pezones. 6. Tiene dolor, drenaje o que se le habr la incisin. 7. Tiene temperatura mayor de 38.0 grados centgrados o ms de 100.4 grados Farenheit. 8. Tiene dolor sensibilidad en los msculos de las pantorrillas o de los muslos. 9. Tiene estreimiento por 4 lim. Tobacco Avoidance Exposure to tobacco either from smoking or from second hand (environmental) smoke or smokeless tobacco (snuff) is damaging to your health. This information is to encourage everyone to avoid tobacco exposure. It is recommended that you: ? If you smoke or use smokeless tobacco, we encourage you to quit. ? If you have already quit smoking, continue your good work! ? If you do not smoke or use smokeless tobacco, do not start. ? Avoid secondhand smoke. Additional Resources You may want to contact these organizations for further information on smoking and how to quit. [place] [employer], http://www.lungusa.org/stop-smoking/ [place] [employer], http://www.cancer.org/Healthy/StayAwayfromTobacco/index [place] [employer], http://www.heart.org/HEARTORG/GettingHealthy/QuitSmoking/Quit-Smoking_[facility] _001085_SubHomePage.jsp Evitar El Tabaco La exposicin al tabaco ya sea por fumar o por el humo de segunda mano (humo ambiental) y el tabacosin humo es perjudicial para fung marlene. Esta informacin es para animar a todos para que eviten la exposicin al tabaco. Se recomienda: Si usted fuma o usa tabaco sin humo le animamos a dejarlo. Si boswell dejado de fumar, continu con fnug buen trabajo! Si usted no fuma o usa tabaco sin humo no empiece a hacerlo. Evitar el humo de segunda mano. Recursos Adicionales: Usted puede comunicarse con estas organizaciones para tener ms informacin sobre fumar y lauri dejar de hacerlo. [place] [employer] (Asociacin Americana del Pulmn), http://www.lungusa.org/stop-smoking/ [place] [employer] Society (Sociedad Americana del Cncer), http://www.cancer.org/Healthy/StayAwayfromTobacco/index [place] [employer] (Asociacin Americana del Corazn), http://www.heart.org/HEARTORG/GettingHealthy/QuitSmoking/Quit- Smoking_[facility]_001085_SubHomePage.jspPatient Discharge Instructions Instrucciones para el paciente al jennifer de berta Rubella: Rubella screen IgG (no units) Date Value 12/29/2018 Positive Hgb/HCT: HGB (g/dL) Date Value 08/22/2019 9.2 (L) , HCT (%) Date Value 08/22/2019 29.1 (L) ABO Type: ABO & RH (no units) Date Value 08/21/2019 O POSITIVE Patient Discharge Instructions Take Home Medications These are medications ordered for you by your healthcare provider. Do not take any other medicationsor supplements unless advised by your healthcare provider. Medicamentos tomados en casa: Estos son medicamentos ordenados por fung proveedor de servicios mdicos. No tome ningn otro medicamento o suplemento a menos que sea aconsejado por fung proveedor. Current Discharge Medication List START taking these medications Details docusate calcium (SURFAK) 240 mg Take 240 mg by mouth once daily as needed for Constipation. Qty: 60 capsule, Refills: 1 Start date: 08/22/2019 Associated Diagnoses: (spontaneous vaginal delivery) HYDROcodone-acetaminophen (NORCO 5) 1 tablet Take 1 tablet by mouth every 6 (six) hours as needed (for pain). Do not exceed 3 grams of acetaminophen in 24 hours. Qty: 5 tablet, Refills: 0 Start date: 08/22/2019, End date: 08/29/2019 Associated Diagnoses: (spontaneous vaginal delivery) ibuprofen (IBU) 600 mg Take 600 mg by mouth every 6 (six) hours as needed (Pain). Take with food or milk. Qty: 60 tablet, Refills: 1 Start date: 08/22/2019 Associated Diagnoses: (spontaneous vaginal delivery) vitamin w/FA (PRENATABS RX) 1 tablet Take 1 tablet by mouth daily. Qty: 100 tablet, Refills: 3 Start date: 08/22/2019 Associated Diagnoses: (spontaneous vaginal delivery) CONTINUE these medications which have CHANGED Details ferrous sulfate 325 mg Take 325 mg by mouth 2 (two) times daily. Qty: 60 tablet, Refills: 2 Start date: 08/22/2019 Associated Diagnoses: (spontaneous vaginal delivery) CONTINUE these medications which have NOT CHANGED Details ARIPiprazole (ABILIFY) 15 mg Take 15 mg by mouth daily. Qty: 30 tablet, Refills: 1 Associated Diagnoses: Bipolar II disorder !! desvenlafaxine succinate (PRISTIQ) 25 mg Take 25 mg by mouth daily. Qty: 30 tablet, Refills: 1 Associated Diagnoses: Depression, unspecified depression type !! desvenlafaxine succinate (PRISTIQ) 50 mg Take 50 mg by mouth daily. Qty: 30 tablet, Refills: 1 Associated Diagnoses: Depression, unspecified depression type diphenhydrAMINE 25 mg tablet Take one tablet three times a day as needed for anxiety Qty: 90 tablet, Refills: 1 Associated Diagnoses: Generalized anxiety disorder !! - Potential duplicate medications found. Please discuss with provider. STOP taking these medications ascorbic acid (vitamin C) (VITAMIN C) 500 mg Comments: Reason for Stopping: proMETHazine (PHENERGAN) 25 mg Comments: Reason for Stopping: dextroamphetamine-amphetamine 20 mg tablet Comments: Reason for Stopping: methocarbamol 750 mg tablet Comments: Reason for Stopping: nutritional supplement/fiber (JUICE PLUS FIBRE ORAL) Comments: Reason for Stopping: vit calc,iron,folic ( VITAMIN ORAL) Comments: Reason for Stopping: Follow-up Appointments/Key citas: The following appointments have been made for you: Las siguientes citas se hicieron para usted: Provider Place Date Time Follow instructions as indicated below: Siga las instrucciones que se le indican a continuacin: Discharge Orders Regular Diet; Texture: Regular. Texture Regular. Diabetic: No Regular Diet; Texture: Regular. Texture Regular. Diabetic: No Discharge Condition - GOOD Discharge Condition: GOOD Discharge Activity: - Ambulate with Pelvic Rest x 6 weeks DISCHARGE FOLLOW-UP: PRIVATE PHYSICIAN Order Comments: F/u with Dr. Yokasta Corona in 6 weeks for PP visit Physician / RN PROCEDURES Referring Physician When: Other - See Comment Patient Discharge Instructions - Vaginal Delivery Order Comments: Keep BTL incision clean and dry with soap and water in shower, dry gently with cleantowel. Return to ER if Temp > 100.4 F, redness around or pus from incision, headache unresolvedwith pain medications, visual disturbances including double or blurry vision, seeing spots, or upperabdominal pain. Pelvic rest 4 to 6 weeks, and no heavy lifting. Discharge Condition - GOOD Discharge Condition: GOOD Discharge Activity: - Ambulate with Pelvic Rest x 6 weeks DISCHARGE FOLLOW-UP: PRIVATE PHYSICIAN Order Comments: For Patients - return to clinic in 7-10 days for staple removal. If [facility] clinic, Nursing Staff to call clinic for follow-up appointment. Patient will f/u with Dr. Yokasta Corona in 1 week as scheduled with her clinic. Physician / RN PROCEDURES Referring Physician When: 1 Week Patient Discharge Instructions - Vaginal Delivery Order Comments: Return to ER if Temp > 100.4 F, headache unresolved with pain medications, visual disturbances including double or blurry vision, seeing spots, or upper abdominal pain. Pelvic rest 4 to 6 weeks, and no heavy lifting. Weight: In general, sudden weight gains or losses should be reported to your provider. Cardiac patients should weigh daily and notify their provider for a weight gain of 3 pounds per day or 5 pounds per week. Peso: En general, la perdida aumento repentino de peso deber ser reportado a fung proveedor. Lospacientes cardiacos, debern pesarse a diario y notificar a fung proveedor si tienen un aumento de 3 libras por da o 5 libras por semana. Tobacco Avoidance: Follow recommendations below Para evitar el Tabaco: Siga las recomendaciones a continuacin. To schedule other appointments, call the [facility] at or- . You may also make appointments online by going to [email or web address] and follow the Request Appointment quicklink. Para programar otras citas, llame al centro de acceso de marlene de [facility] al o al . Ck jacobs puede hacer citas por internet, vaya a [email or web address] y sandy la conexin con solicitud citas (Request Appointment) For questions regarding follow-up instructions call the [facility] [place], [place] at or Para preguntas relacionadas con las instrucciones del seguimiento llame al For worsening symptoms/changing condition/problems or questions: Si los sntomas empeoran/cambios de condicin/problemas o preguntas, llame: Non-emergency/urgent: Call the [facility] [place] [place] at or 1- or No emergencia/urgencia: Llame al [facility] de [facility] Emergency: Go to the closest emergency room or call [phone] Emergencia: Vaya a la rosalba de emergencia ms kc o llame al 075 Our Goal is to Always Provide You with Very Good Care! We will be mailing you a survey, Please complete and return at your convenience. Thank You [facility] [place] es Ofrecerle a Usted Siempre, diandra muy buena atencin. Nosotros le enviaremos diandra encuesta, por favor llnela y regrsela segn pueda. Christi Multidisciplinary Discharge Instructions (may include diet, dressing changes, activity limits, written materials given to patient: DIET: Eat a well balanced diet; drink 6-8 glasses of fluids daily; eat fruits and green, leafy vegetables. DAILY ACTIVITIES: 1. As much as you feel able to do. Rest when you are tired. 2. Limitations: Specify; No heavy lifting other than your baby for 4 weeks if you had surgery. TREATMENT AT HOME 7. Use a well-fitting bra to prevent breast engorgement 8. Resume intercourse as instructed by your physician. 9. Do not use douches or tampons for four weeks. 10. To help prevent urinary tract infection; after each urination and bowelmovement, wipe and dry from front to back and change peripad. 11. Follow discharge instructions regarding baby care. 12. Follow family planning instructions. IMMEDIATE TREATMENT Call Clinic or Your Physician 10. Increase in pain and tenderness of uterus. 11. Increased vaginal bleeding (bright red blood which soaks 2 pads in 1hour or pass large clots). 12. Foul smelling vaginal discharge. 13. Burning in the tube that empties the urine from the bladder. 14. Painful breast engorgement or cracked nipples. 15. Pain, discharges, or gaping incision. 16. Temperature greater than 38.0C or 100.4F 17. Pain and tenderness of calf or thigh muscles. 18. No bowel movements in 4 days. Instrucciones multidisciplinarias para jennifer de berta (pueden incluir, dieta, cambio de gasas, limitacin de actividades, material escrito para entregar al paciente): DIETA: Mantenga diandra dieta leigha balanceada; tome de 6 a 8 vasos de lquidos al da; coma frutas, hortalizas y vegetales. ACTIVIDADES DIARIAS: 3. Mantngalas mientras pueda. Descanse si se siente cansada, 4. Limitaciones: No levante nada ms pesado que fung hijo por cuatro semanas si tuvo diandra operacin. FUNG CUIDADO EN CASA: 7. Use un sostn que le ajuste leigha para evitar que se le llenen demasiados los pechos. 8. Resuma key relaciones sexuales segn le indique fung doctor. 9. No use duchas ni tampones por 4 semanas. 10. Para ayudar a prevenir infecciones urinarias, despus de orinar y defecar, lmpiese de adelante hacia atrs y cmbiese la toalla sanitaria. 11. Siga las instuciones sobre el cuidado del beb. 12. Siga las instrucciones sobre planificacin familiar. TRATAMIENTO INMEDIATOLlame a la clnica o a fung doctor si: 10. Aumenta el dolor o sensibilidad en la matriz. 11. Aumenta el sangramiento vaginal (juan cole brillante que pueda llenar 2 toallas sanitarias enuna hora o si tiene cogulos grandes). 12. Tiene desecho vaginal con mal olor. 13. Tiene ardor cuando orina. 14. Siente dolor en los pechos porque estn muy llenos o grietas en los pezones. 15. Tiene dolor, drenaje o que se le habr la incisin. 16. Tiene temperatura mayor de 38.0 grados centgrados o ms de 100.4 grados Farenheit. 17. Tiene dolor sensibilidad en los msculos de las pantorrillas o de los muslos. 18. Tiene estreimiento por 4 lim. Tobacco Avoidance Exposure to tobacco either from smoking or from second hand (environmental) smoke or smokeless tobacco (snuff) is damaging to your health. This information is to encourage everyone to avoid tobacco exposure. It is recommended that you: ? If you smoke or use smokeless tobacco, we encourage you to quit. ? If you have already quit smoking, continue your good work! ? If you do not smoke or use smokeless tobacco, do not start. ? Avoid secondhand smoke. Additional Resources You may want to contact these organizations for further information on smoking and how to quit. [place] [employer], http://www.lungusa.org/stop-smoking/ [place] [employer], http://www.cancer.org/Healthy/StayAwayfromTobacco/index [place] [employer], http://www.heart.org/HEARTORG/GettingHealthy/QuitSmoking/Quit-Smoking_[facility] _001085_SubHomePage.jsp Evitar El Tabaco La exposicin al tabaco ya sea por fumar o por el humo de segunda mano (humo ambiental) y el tabacosin humo es perjudicial para fung marlene. Esta informacin es para animar a todos para que eviten la exposicin al tabaco. Se recomienda: Si usted fuma o usa tabaco sin humo le animamos a dejarlo. Si boswell dejado de fumar, continu con fugn buen trabajo! Si usted no fuma o usa tabaco sin humo no empiece a hacerlo. Evitar el humo de segunda mano. Recursos Adicionales: Usted puede comunicarse con estas organizaciones para tener ms informacin sobre fumar y lauri dejar de hacerlo. [place] [employer] (Asociacin Americana del Pulmn), http://www.lungusa.org/stop-smoking/ [place] Cancer Society (Sociedad Americana del Cncer), http://www.cancer.org/Healthy/StayAwayfromTobacco/index [place] Heart [employer] (Asociacin Americana del Corazn), http://www.heart.org/HEARTORG/Gettin gHealthy/QuitSmoking/Quit-Smoking_[facility]_001085_SubHomePage.jsp documented in this encounter Progress Notes Lidia Guzman LMSW - 08/22/2019 9:37 AM CDTTHIS NOTE IS COPIED FROM BABY'S CHART: Social Work Note NB's UDS positive for THC. RAVINDRA contacted the CPS hotline and made a report with Meilssa id: [id number], reference# [id number], due to concerns for maternal substance abuse. Per Melissa, a CPS investigation will be recommended as a Priority 1. Update at 1055: RAVINDRA received a call from CPS shopping investigator Lise Rebollar (Nina) ph: [phone], who reports plans to come to the hospital within the next few hours to make contact with MOB and baby. Plan: Baby to D/C home with MOB when medically cleared. F/U as directed by physician CPS to follow-up at home Lidia Guzman LMSW Care Management Pager: [phone] Deidre Osorio MD - 08/22/2019 6:23 AM CDT PROGRESS NOTE 08/22/2019 6:24 AM Subjective: Overnight patient had no complaints. Her pain is well controlled on oral pain medications. She is tolerating a regular diet. She has passed flatus. She is ambulating without difficulty. Lochia is Scant. She is urinating without gracia. Patient denies chest pain, SOB, n/v, headache, RUQ pain, vision changes, dizziness. Objective: VITALS: Patient Vitals for the past 24 hrs: BP Temp Temp src Pulse Resp SpO2 Height Weight 08/22/19 0400 120/70 36.7 C (98.1 F) Oral 65 18 98 % 08/22/19 0000 125/70 36.7 C (98.1 F) Oral 53 17 99 % 08/21/19 2150 119/71 36.8 C (98.2 F) Oral 56 18 98 % 08/21/19 2035 120/70 36.6 C (97.8 F) Axillary 58 16 99 % 08/21/192019 115/53 62 17 99 % 08/21/19 2005 120/67 57 16 99 % 08/21/19 1950 120/66 59 17 99 % 20 1935 111/57 58 17 98 % 20 1630 121/68 68 18 97 % 20 1600 114/73 62 18 98 % 20 1500 121/72 65 18 98 % 2020 1445 120/73 64 18 99 % 2020 1430 112/65 73 18 99 % 08/21/19 1415 120/59 82 18 100 % 08/21/19 1400 126/65 36.6 C (97.8 F) Oral 70 18 98 % 08/21/19 1330 (!) 145/89 65 18 98 % 04/20/20 1315 121/69 08/21/19 1300 127/70 66 18 98 % 08/21/19 1255 130/75 67 08/21/19 1253 126/73 68 08/21/19 1251 119/71 71 08/21/19 1249 121/67 73 08/21/19 1247 121/74 51 08/21/19 1245 122/69 59 08/21/19 1243 120/64 64 08/21/19 1241 121/64 72 08/21/19 1239 115/88 83 08/21/19 1237 124/71 62 08/21/19 1235 133/69 77 08/21/19 1233 125/68 56 08/21/19 1231 129/64 54 08/21/19 1230 81 18 99 % 08/21/19 1229 118/77 68 08/21/19 1227 116/74 79 08/21/19 1225 126/88 87 18 99 % 08/21/19 1220 121/87 75 18 97 % 08/21/19 1215 130/73 78 18 98 % 08/21/19 1200 124/74 36.8 C (98.2 F) Oral 72 18 99 % 20/ 1130 114/67 73 18 100 % 08/20/ 1100 118/69 88 17 99 % 08/20/ 1030 115/66 84 18 100 % 20/ 1000 117/65 36.7 C (98 F) Oral 74 18 100 % 08/20/20 0930 113/58 80 18 98 % 08/20/ 0900 113/65 72 18 98 % 08/20/20 0830 106/60 36.6 C (97.8 F) Oral 83 18 99 % 20/20 0800 (!) 188/62 82 18 99 % 20/20 0730 124/74 92 18 99 % 08/20/20 0700 123/73 93 18 98 % 08/20/20 0644 123/77 36.7 C (98 F) Oral 103 18 96 % 1.676 m (5' 6") 95.9 kg (211 lb 8 oz) PE: General: patient alert and in no acute distress Lungs: clear to auscultation bilaterally Cardiology: regular rate and rhythm, no murmur Abdomen: normal tenderness to palpation, soft, bowel sounds present. Fundus is firm and at umbilicus. BTL incision covered with bandage, c/d/i Extremities: no clubbing, cyanosis, or edema : deferred MEDS: Current Facility-Administered Medications Medication Dose Route Frequency Last Rate Last Dose acetaminophen (TYLENOL) tablet 650 mg 650 mg Oral Q6HPRN ARIPiprazole (ABILIFY) tablet 15 mg 15 mg Oral DAILY benzocaine-menthol (DERMOPLAST) 20-0.5 % topical spray Topical PRN bisacodyL (DULCOLAX) suppository 10 mg 10 mg Rectal QDAILYPRN desvenlafaxine succinate (PRISTIQ) 24 hr tablet 100 mg 100 mg Oral DAILY diphenhydrAMINE (BENADRYL) tablet 25 mg 25 mg Oral Q6HPRN diphenhydrAMINE (BENADRYL) tablet 25 mg 25 mg Oral Q6HPRN diphenhydrAMINE-0.9 % sod.chlr (BENADRYL) 25 mg/50 mL piggyback 25 mg 25 mg IV Piggyback Q6HPRN diphenhydrAMINE-0.9 % sod.chlr (BENADRYL) 25 mg/50 mL piggyback 25 mg 25 mg IV Piggyback Q6HPRN docusate calcium (SURFAK) capsule 240 mg 240 mg Oral QDAILYPRN docusate calcium (SURFAK) capsule 240 mg 240 mg Oral QDAILYPRN HYDROcodone-acetaminophen (NORCO 5) 5-325 mg tablet 1 tablet 1 tablet Oral Q6HPRN HYDROcodone-acetaminophen (NORCO 5) 5-325 mg tablet 2 tablet 2 tablet Oral Q6HPRN 2 tablet at08/21/19 2301 ibuprofen (IBU) tablet 600 mg 600 mg Oral Q6HPRN ibuprofen (IBU) tablet 600 mg 600 mg Oral Q6H 600 mg at 08/22/19 0219 LR 1000 mL + oxytocin 20 units IV Solution 2 ashu-units/min IV Infusion ONCE LR 1000 mL + oxytocin 20 units IV Solution 2 ashu-units/min IV Infusion ONCE magnesium hydroxide (MILK OF MAGNESIA) 400 mg/5 mL suspension 30 mL 30 mL Oral QDAILYPRN magnesium hydroxide (MILK OF MAGNESIA) 400 mg/5 mL suspension 30 mL 30 mL Oral QDAILYPRN nalbuphine (NUBAIN) injection 5 mg 5 mg Intravenous PRN naloxone (NARCAN) injection 0.4 mg 0.4 mg Slow IV Push PRN - SEE INSTRUCTIONS ondansetron (ZOFRAN (PF)) injection 4 mg 4 mg Slow IV Push Q8HPRN ondansetron (ZOFRAN (PF)) injection 4 mg 4 mg Slow IV Push Q8HPRN ondansetron (ZOFRAN (PF)) injection 4 mg 4 mg Slow IV Push ONCE oxytocin (PITOCIN) 40 Units in lactated ringers 1,000 mL IV infusion IV Infusion CONTINUOUS 125 mL/hr at 08/21/19 1352 vitamin w/FA (PRENATABS RX) tablet 1 tablet 1 tablet Oral DAILY rho(D) immune globulin (RHOGAM) syringe 300 mcg 300 mcg Intramuscular ONCE rho(D) immune globulin (RHOGAM) syringe 300 mcg 300 mcg Intramuscular ONCE simethicone (GAS RELIEF (SIMETHICONE)) chewable tablet 160 mg 160 mg Oral PC+HSPRN simethicone (GAS RELIEF (SIMETHICONE)) chewable tablet 160 mg 160 mg Oral PC+HSPRN LABS: WBC (10*3/L) Date Value 08/22/2019 14.00 (H) 08/03/2019 11.80 (H) HGB (g/dL) Date Value 08/22/2019 9.2 (L) 08/03/2019 10.0 (L) HCT (%) Date Value 08/22/2019 29.1 (L) 08/03/2019 32.5 (L) PLT (10*3/L) Date Value 08/22/2019 200 08/03/2019 228 Assessment: Yuli Talbert is a 34 year old PPD#1 s/p at 39w1d on 08/21/19 at 1344, uncomplicated.Patient is recovering well: hemodynamically stable, good UOP, pain well-controlled, vitals within normal limits. Plan: Review: - Admitted for: IOL - Estimated blood loss: 300 ml - Laceration: minor - Vaginal delivery Complications: none - Clinical trials: none - Predelivery H/H: 10.0/32.5 - Postdelivery H/H: 9.2/29.1 care: - Diet: Regular diet - Fluid: Encourage oral intake - Activity: Encourage ambulation - Pain: Kendall and Ibuprofen - DVT prophylaxis: Encourage ambulation Antepartum course reviewed - 1 h 88, sero negative, Rimmune, VZVimmune, O positive/IAT negative, GBS negative, Pap NILM 07/28/18 - Pvt of Dr. Yokasta Corona Discharge Planning: - Contraception: s/p BTL - Vaccines: none indicated - Follow Up: follow-up in 3 weeks at PCP (Private) Baby's Status: - APGARs 8 , 9 - Weight: 2880 g - Location: at bedside Dispo: Patient is PPD#1, will be 24 hours s/p BTL at 1900, needs to meet the following milestones: BTL incision check. Patient would like to go home this evening. Anticipate discharge PPD#1. Deidre Osorio MD Associated attestation - Yokasta Corona MD - 08/22/2019 7:18 AM CDTI personally participated in the evaluation of this patient and agree with assessment and managementplan as outlined by the Dr. Osorio's progress note. Anticipate discharge later this afternoon. Yokasta Corona MDViYokasta minaya MD - 08/21/2019 11:45 AM CDTIntrapartum Progress Note 08/21/2019 11:46 AM Subjective: Patient has been well without complaints except pain from contractions. Objective: Vitals last 24 hours: Temp: [36.6 C (97.8 F)-36.7 C (98 F)] 36.7 C (98 F) Pulse: [72-103] 73 Resp: [17-18] 18 BP: (106-188)/(58-77) 114/67 Intake/Output : No intake/output data recorded. No intake/output data recorded. Assessment Active movement: Yes Mode: EFM Uterine Activity: Mode: Smolan Contractions (number / 10 minute): adj Contraction duration (seconds): 60-70 Resting tone: Soft Membrane Status Membrane status: Intact Cervical Exam 3 / 50 % / -2 Assessment/Plan: Yuli Talbert is a 34 year old at 39w1d OB Assessment: IOL, MPDPS OB Plan: Pit@0900 -Epidural per patient request Yokasta Corona MD Mirela Stover MD - 08/21/2019 8:19 AM CDTBTL COUNSELING NOTE 08/21/2019 8:19 AM I counseled the patient regarding incentives, risks, [...] to proceed with bilateral tubal ligation surgery. Ok'd to proceed due to maternal h/o bipolar disorder and Mood instability with estrogen and progesterone PMH: bipolar disorder PSH: none Weight: 211 lb Consent signed on 07/20/19 Mirela Tony MD 08/21/2019 8:20 AM documented in this encounter Plan of Treatment Date Type Specialty Care Team Description 08/31/2019 Routine Visit Yokasta Bower MD Gynecology [address] [place] [phone] 09/06/2019 Telemedicine Visit Psychiatry Hailey Berrios MD [address] [place] [address]. [place] [phone] 09/14/2019 Telemedicine Visit Bob Calderon MD Gynecology [address] [place] [phone] Name Type Priority Associated Diagnoses Date/Ti me SURGICAL PATHOLOGY EXAM LAB STAT 08/02 7:10 PM CDT Name Type Priority Associated Diagnoses Order S chedule SURGICAL PATHOLOGY EXAM LAB Routine ONCE for 1 Occurrences starting 2019, 1 completed Health Maintenance Due Date Last Done Comments [...] 6:23 34yo @ PM CDT 1344 MPDPS GALV ONLY - SYPHILIS TOSIN 08/21/2019 8:30 Res ults for this IGG/IGM AM CDT procedure are i n the results section. HEPATITIS B SURFACE TOSIN 08/21/2019 8:30 Resu lts for this ANTIGEN AM CDT procedure are i n the results section. RHO (D) IMMUNE Routine 08/21/2019 8:12 Results f or this GLOBULIN AM CDT procedure are i n the results section. HB ABO GROUPING TOSIN 08/21/2019 8:12 Results for this AM CDT procedure are i n the results section. CORONAVIRUS COVID-19 TOSIN 08/21/2019 6:23 Res ults for this TESTING AM CDT procedure are i n the results section. documented in this encounter Results CBC WITH DIFFERENTIAL (08/22/2019 3:50 AM CDT) Pathologist Sig nature WBC 14.00 (H) 4.30 - 11.10 [facility] 10*3/L SERVICES RBC 3.61 (L) 3.93 - 5.25 [facility] 10*6/L SERVICES HGB 9.2 (L) 11.6 - 15.0 [facility] g/dL SERVICES HCT 29.1 (L) 35.7 - 45.2 % [facility] SERVICES MCV 80.6 80.6 - 95.5 fL [facility] MCH 25.5 (L) 25.9 - 32.8 pg [facility] MCHC 31.6 31.6 - 35.1 [facility] g/dL SERVICES RDW-SD 44.6 39.0 - 49.9 fL [facility] SERVICES RDW-CV 15.4 12.0 - 15.5 % [facility] SERVICES PLT 200 166 - 358 [facility] 10*3/L SERVICES MPV 10.1 9.5 - 12.9 fL [facility] SERVICES NRBC/100 WBC 0.0 0.0 - 10.0 /100 [facility] WBCs SERVICES NRBC x10^3 <0.01 10*3/L [facility] GRAN MAT (NEUT) % 69.7 [...] SERVICES EOS x10^3 0.16 0.03 - 0.39 [facility] 10*3/uL SERVICES BASO x10^3 0.03 0.01 - 0.07 [facility] 10*3/uL SERVICES Specimen Blood - ARM, RIGHT Performing Organization Address City/State/Zipcode Phone Number [facility] CLIA: [id number], [address] [place], [place] [address] [facility] GAL ONLY - SYPHILIS IGG/IGM (08/21/2019 8:30 AM CDT) Pathologist Sig nature SYPH IGG Non-reactiveComment: Non-reactive [facility] Only Syphilis IgG SERVICES tested. Syphilis IgG/IgM assay reagents not available at the time of testing. Specimen Blood - VENOUS Narrative Performed At [facility] Non-reactive - No serologic evidence of T. pallidum infection. Cannot exclude incubating or early syphilis . Submit a second specimen in 2-4 weeks if syphilis is clinically suspected. Equivocal - Further testing to follow. Reactive - Further testing to follow. Performing Organization Address City/[facility] Phone Number [facility] CLIA: [id number], [address] [place] [address] [facility] Hepatitis B Surface Antigen (08/21/2019 8:30 AM CDT) Pathologist Sig nature HBsAg Negative Negative [facility] HBsAg 0.04 [facility] Semi-Quantitative SERVICES Specimen Blood - VENOUS Performing Organization Address [facility] Phone Number [facility] CLIA: [id number], [address] [place] [address] [address] [facility] RHO (D) IMMUNE GLOBULIN (08/21/2019 8:12 AM CDT) Pathologist Sig nature RHIG CANDIDATE? No- see comment LAB Comment: Patient is not a candidate for RhIg- Patient is Rh Pos itive. Performed at [facility] Laboratory Services - [facility] Blood [place] [address] Toll Free: [phone] CLIA No. [id number] Specimen Blood - VENOUS Performing Organization Address [facility] Phone Number [facility] Type and Screen - ONCE TOSIN (08/21/2019 8:12 AM CDT) Pathologist Sig nature ABO & RH O POSITIVE LAB Comment: Performed at [facility] Laboratory Services - [facility] Blood [place] [address] Toll Free: [phone] CLIA No. [id number] IAT Negative LAB Comment: Performed at [facility] Laboratory Services - [facility] Blood [place] [address] Toll Free: [phone] CLIA No. [id number] Specimen Blood Performing Organization Address City/[facility] Phone Number D LAB CORONAVIRUS COVID-19 TESTING (08/21/2019 6:23 AM CDT) Pathologist Sig nature SARS-CoV-2 Not Detected Not Detected [facility] Specimen Swab - NASOPHARYNGEAL SWAB Narrative Performed At [facility] COVID-19 Assay is an isothermal nucleic acid [facility] amplification test intended for the qualitative detect ion of nucleic acid from SARS-CoV-2 viral RNA in nasopharynge al (RN PROCEDURES) specimens. It is used under Emergency Use [...] indicated. Performing Organization Address City/State/Zipcode Phone Number [facility] CLIA: [id number], [address] [place] [address] [address] [facility] documented in this encounter Visit Diagnoses Diagnosis 39 weeks gestation of - Primar y state, incidental (spontaneous vaginal delivery) Normal delivery Liveborn , of rod , born in hospital by vaginal delivery Low-lying placenta Hemorrhage from placenta previa, unspeci fied as to episode of care Bipolar disorder Bipolar disorder, unspecified Obesity (BMI 30-39.9) Obesity, unspecified Encounter for female sterilization proce dure Sterilization documented in this encounter Administered Medications Medication Order MAR Action Action Date Dose Rate Site ARIPiprazole (ABILIFY) tablet 15 Given 08/22/2019 9:07 AM CDT 1 5 mg mg 15 mg, Oral, DAILY, First dose on Wed08/22/19 at 0900, Until Discontinued, Routine desvenlafaxine succinate (PRISTIQ) Tb24 75 mg Given 08/22/2019 9:08 AM CDT 75 mg 75 mg, Oral, DAILY, First dose on Wed08/22/19 at 0900, Until Discontinued, Routine docusate calcium (SURFAK) capsule 240 mg Given 08/22/2019 9:08 AM CDT 240 mg 240 mg, Oral, QDAILYPRN, Starting Wed08/21/19 at 2155, Until Discontinued, Routine, Constipation HYDROcodone-acetaminophen (NORCO 5) 5-32 5 mg tablet 1 tablet 1 tablet, Oral, Q6HPRN, Starting 08/02 at 1926, Until Discontinued, Routine, Pain (scale 4-6) HYDROcodone-acetaminophen (NORCO 5) 5-325 Given 2019 9:08 AM CDT 2 tablets mg tablet 2 tablet 2 tablet, Oral, Q6HPRN, Starting Wed08/21/19 at 1926, Until Discontinued, Routine, Pain (scale 7-10) Given 08/21/2019 11:01 PM CDT 2 tablets ibuprofen (IBU) tablet 600 mg Given 08/22/2019 12:39 PM CDT 600 mg 600 mg, Oral, Q6H, First dose on Wed08/22/19 at 0000, Until Discontinued, Routine Given 08/22/2019 2:19 AM CDT 600 mg nalbuphine (NUBAIN) injection 5 mg 5 mg, Intravenous, PRN, 1 dose, Starting Wed08/21/19 at 1948, Until Discontinued, Routine, Itching, PACU naloxone (NARCAN) injection 0.4 mg 0.4 mg, Slow IV Push, PRN - SEE INSTRUCT IONS, Starting Wed08/21/19 at 1948, Until Wed08/23/19 at 1947, Routine, Analgesia Recovery, PACU oxytocin (PITOCIN) 40 Units in lactated New Bag 08/21/2019 1: 52 PM CDT 125 mL/hr ringers 1,000 mL IV infusion at 125 mL/hr, IV Infusion, CONTINUOUS, Starting Wed08/21/19 at 1600, Until Discontinued, Routine vitamin w/FA (PRENATABS RX) Given 08/22/2019 9:08 AM C DT 1 tablet tablet 1 tablet 1 tablet, Oral, DAILY, First dose on Wed08/22/19 at 0900, Until Discontinued, Routine Medication Order MAR Action Action Date Dose Rate Site [id number] IV infusion 1,000 mL New Bag 08/21/2019 8:30 AM CDT 1,000 mL 125 mL/hr at 125 mL/hr, IV Infusion, CONTINUOUS, Starting Wed08/21/19 at 0800, Until Wed08/21/19 at 2155, Routine ketorolac (TORADOL) injection 30 mg Given 08/21/2019 8:41 PM CDT 30 mg 30 mg, Slow IV Push, PRN, 1 dose, Starting Wed08/21/19 at 1948, Until Wed08/21/19 at 2041, Routine, Pain (scale 7-10), PACU, modular set crew member approving Restricted medication: KRISTIN RAMOS lactated ringers IV infusion New Bag 08/22/2019 1:57 AM CDT 1,000 mL 125 mL/hr 1,000 mL at 125 mL/hr, 1,000 mL, IV Infusion, ONCE, 1 dose, Wed08/21/19 at 2200, Routine lactated ringers IV infusion 500 New Bag 08/21/2019 12:13 PM C DT 500 mL 999 mL/hr mL at 999 mL/hr, 500 mL, IV Infusion, ONCE, 1 dose, Wed08/21/19 at 1245, Routine LR 1000 mL + oxytocin Rate Change 08/21/2019 1:30 PM 10 ashu-uni ts/min 30 mL/hr 20 units IV Solution CDT at 6-120 mL/hr, IV Infusion, TITRATE, Starting Wed08/21/19 at 0756, Until Wed08/21/19 at 1955, TOSIN Rate Change 08/21/2019 10:30 AM CDT 8 ashu-units/min 24 mL/hr Rate Change 08/21/2019 10:00 AM CDT 6 ashu-units/min 18 mL/hr sodium citrate-citric acid (BICITRA) 500-334 Given 6:28 PM CDT 30 mL mg/5 mL solution 30 mL 30 mL, Oral, PRE-PROCEDURE ONCE, 1 dose, Starting Wed08/21/19 at 0752, Until Wed08/21/19 at 1828, Routine, Surgery/Procedure sodium citrate-citric acid (BICITRA) 500-334 Given 12:13 PM CDT 30 mL mg/5 mL solution 30 mL 30 mL, Oral, PRE-PROCEDURE ONCE, 1 dose, Starting Wed08/21/19 at 1141, Until Wed08/21/19 at 1213, Routine, Surgery/Procedure documented in this encounter Insurance Payer Benefit Plan / Subscriber ID Effective Phone Address [employer] [facility] xxxxxxxxx 2017-Ann [address]OX Medic aid HEALTH CHOICE - HEALTH CHOICE nt [id number] 1 MANAGED MEDICAID [place], [place]ID [id number] documented as of this encounter
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
--- OUTSIDE RECORDS SUMMARY | 2019-09-05 05:40 | XMS REPORT | Summary of Care ---
:1985 Author Organization [facility] - [address] [address] Care Team Providers Name Role Phone Pal Serna Unavailable Yokasta Corona MD Primary Care Provider Encounter Details Date Type Department Care Team Description 07/27/2019 Patient [facility] Women's Yokasta Bolivar MD [address] [address] [place], [place] [phone] [address] [phone] Allergies No Known Allergiesdocumented as of this encounter (statuses as of 09/02/2019) Medications Medication Sig Dispensed Refills Start Date End Date Status diphenhydrAMINE 25 mg Take one tablet 90 tablet 1 02/13/2019 Active tabletIndications: three times a Generalized anxiety day as needed disorder for anxiety documented as of this encounter (statuses as of 09/02/2019) Active Problems Problem Noted Date 39 weeks gestation of 08/21/2019 Low-lying placenta 08/21/2019 Bipolar disorder 08/21/2019 Obesity (BMI 30-39.9) 12/29/2018 Comments Yes documented as of this encounter (statuses as of 09/02/2019) Resolved Problems Problem Noted Date Resolved Date Liveborn , of rod , born in hospital by 08/22/2019 08/31/2019 vaginal delivery Encounter for female sterilization procedure 08/22/2019 08/31/2019 documented as of this encounter (statuses as of 09/02/2019) Immunizations Name Administration Dates Next Due TDAP (ADACEL) VACCINE 06/09/2019 documented as of this encounter Social History Tobacco Use Types Packs/Day Years Used Date Current Every Day Smoker Cigarettes Smokeless Tobacco: Current User Comments: Last cigarette 03/15/2019; vap ing Alcohol Use Drinks/Week oz/Week Comments Not Currently Comments Yes Sex Assigned at Date Recorded Not on [...] or suspected to have Coronavirus / COVID-19? documented as of this encounter Last Filed Vital Signs Not on filedocumented in this encounter Plan of Treatment Date Type Specialty Care Team Description 09/06/2019 Telemedicine Visit Psychiatry Obed Russell MD [address] [place], [place] [address] Hailey Berrios MD [address] [place] [phone] 09/14/2019 Telemedicine Visit Obstetrics & Corona, Bob brown MD Gynecology [address] [place] [phone] Health Maintenance Due Date Last Done Comments PNEUMOCOCCAL 0-64 YEARS COMBINED 1993 SERIES (1 of 1 - PPSV23) PAP SMEAR 2008 INFLUENZA VACCINE (Season Ended) 2020 Postponed from 01/02/2020 (Refused) DTaP,Tdap,and Td Vaccines (2 - 06/09/2029 06/09/2019 Td) documented as of this encounter Results Not on filedocumented in this encounter Insurance Payer Benefit Plan / Subscriber ID Effective Phone Address T e Group [facility] xxxxxxxxx 2017-Prese [address] Medic aid HEALTH CHOICE - HEALTH CHOICE nt [id number] 1 MANAGED MEDICAID [place], [place]ID [phone] documented as of this encounter
--- OUTSIDE RECORDS SUMMARY | 2019-09-05 05:40 | XMS REPORT | Summary of Care ---
:1985 Author Organization [facility] - [address] [address] Care Team Providers Name Role Phone Yokasta Corona MD Primary Care Provider Reason for Visit Reason Comments Care (Routine) Status Reason Specialty Diagnoses / Referred By Referred To Procedures Contact Contact Closed Obstetrics & Diagnoses Liveborn infant, of rod , born in hospital by vaginal delivery Yokasta Corona [facility] Women's Gynecology Procedures DISCHARGE FOLLOW-UP: PRIVATE PHYSICIAN [address], [address] [place], [place] Kathryn Pérez [phone] Phone: Encounter Details Date Type Department Care Team Description 08/31/2019 Routine [facility] Women's Yokasta Corona, care following vaginal delivery (Primary Dx); Visit Healthcare- Depression, unspecified depression type; [address] Bipolar affective disorder, remission st atus unspecified [address] [place] [address] [address] [phone] [place] CARLOS [phone] [address] [phone] Allergies No Known Allergiesdocumented as of this encounter (statuses as of 09/02/2019) Medications Medication Sig Dispensed Refills Start Date End Date Status diphenhydrAMINE 25 mg Take one tablet 90 tablet 1 02/13/2019 Active tabletIndications: three times a Generalized anxiety day as needed disorder for anxiety ARIPiprazole 15 mg Take 1 tablet 30 tablet 1 08/02/2019 Active tabletIndications: by mouth daily. Bipolar II disorder desvenlafaxine succinate Take 25 mg by 30 tablet 1 08/02/2019 Active (PRISTIQ) 25 mg mouth daily. [id number]: Depression, unspecified depression type desvenlafaxine succinate Take 1 tablet 30 tablet 1 08/02/2019 Active (PRISTIQ) 50 mg 24 hr by mouth daily. tabletIndications: Depression, unspecified depression type vitamin w/FA Take 1 tablet 100 tablet 3 08/22/2019 Active tabletIndications: by mouth daily. (spontaneous vaginal delivery) docusate calcium 240 mg Take 1 capsule 60 capsule 1 08/22/2019 Active capsuleIndications: by mouth once (spontaneous vaginal daily as needed delivery) for Constipation. ferrous sulfate 325 mg Take 1 tablet 60 tablet 2 08/22/2019 Active (65 mg iron) by mouth 2 tabletIndications: (two) times (spontaneous vaginal daily. delivery) ibuprofen 600 mg Take 1 tablet 60 tablet 1 08/22/2019 Active tabletIndications: by mouth every (spontaneous vaginal 6 (six) hours delivery) as needed (Pain). Take with food or milk. documented as of this encounter (statuses as [...] Signs Not on filedocumented in this encounter Progress Notes Yokasta Corona MD - 08/31/2019 8:30 AM CDT TELEHEALTH NOTE Verbal consent obtained from Patient: Yuli Talbert due to the COVID-19 pandemic for telehealth services provided below. Communication with patient was conducted via Video Call. Location of Patient: Home Location of Provider: Clinic Date of Service: 08/31/2019 Chief Complaint: visit HPI: Yuli Talbert is a 34 year old female status post uncomplicated spontaneous vaginal delivery08/21/19 with a subsequent tubal ligation. Patient is having no difficulties with her incision. She has minimal bleeding which is now dark brown. She is bottle feeding. Patient does report significant issues with her depression. She states she has thought of cutting over the past week but not today. She does not feel suicidal. Her partner, Romulo, has been with her. Patient does feel safe. She has with the kids with her biological father and stepmother. She did have depression with her previous delivery. Past Medical History: Diagnosis Date Anemia Anxiety Chlamydia 2014 Depression Bipolar Mental disorder Pap smear abnormality of cervix STD (sexually transmitted disease) Substance abuse MEDICATIONS: Current Outpatient Medications Medication Sig Dispense Refill ibuprofen 600 mg tablet Take 1 tablet by mouth every 6 (six) hours as needed (Pain). Take with food or milk. 60 tablet 1 vitamin w/FA tablet Take 1 tablet by mouth daily. 100 tablet 3 docusate calcium 240 mg capsule Take 1 capsule by mouth once daily as needed for Constipation. 60 capsule 1 ferrous sulfate 325 mg (65 mg iron) tablet Take 1 tablet by mouth 2 (two) times daily. 60 tablet2 ARIPiprazole 15 mg tablet Take 1 tablet by mouth daily. 30 tablet 1 desvenlafaxine succinate (PRISTIQ) 25 mg Tb24 Take 25 mg by mouth daily. 30 tablet 1 desvenlafaxine succinate (PRISTIQ) 50 mg 24 hr tablet Take 1 tablet by mouth daily. 30 tablet 1 diphenhydrAMINE 25 mg tablet Take one tablet three times a day as needed for anxiety 90 tablet 1 No current facility-administered medications for this visit. ROS Constitutional: Denies fever, chills Cardiovascular: Denies chest pain, palpitations Respiratory: Denies dyspnea, coughing Gastrointestinal: Denies nausea, vomiting, diarrhea Genitourinary: Denies urinary complaints, minimal lochia TELEHEALTH EXAM Constitutional: Appears well groomed, alert and in no apparent distress Respiratory: Breathing comfortably Neuro: Answers questions properly Psych: Affect saddened, no apparent anxiety with our conversation Abdomen: Infraumbilical incision well-healed without erythema or exudate. ASSESSMENT/ PLAN Yuli Talbert is a 34 year old female status post /BTL. Patient with recurrent depression. Patient asked to call [facility] psychiatry. She did make appointment with Dr. Hailey Berrios for 09/06/19. Patient to continue her current bipolar depression medications per psychiatry. She did call them for refills. Patient understands to seek help at emergency department should she have suicidal urges recurrentself-harm ideation. Follow up in 2 weeks or as needed. After visit summary (AVS ) documentation will be available through [employer] for this encounter. A total of 15 minutes was spent on the Video Call, chart review, and coordination of care with specialists. Yokasta Corona MD documented in this encounter Plan of Treatment Date Type Specialty Care Team Description 09/06/2019 Telemedicine Visit Psychiatry Obed Russell MD [address] [facility] [place] [address] [place] [address] [phone] Hailey Berrios MD [address] [place] [address]. [place] [phone] 09/14/2019 Telemedicine Visit Obstetrics & Bob Corona MD Gynecology [address] [place] [phone] Health Maintenance Due Date Last Done Comments PNEUMOCOCCAL 0-64 YEARS COMBINED 1993 SERIES (1 of 1 - PPSV23) PAP SMEAR 2008 INFLUENZA VACCINE (Season Ended) 2020 Postponed from 01/02/2020 (Refused) DTaP,Tdap,and Td Vaccines (2 - 06/09/2029 06/09/2019 Td) documented as of this encounter Results Not on filedocumented in this encounter Visit Diagnoses Diagnosis care following vaginal delive ry - Primary Routine follow-up Depression, unspecified depression type Bipolar affective disorder, remission st atus unspecified documented in this encounter Insurance Payer Benefit Plan / Subscriber ID Effective Phone Address T [facility] xxxxxxxxx 2017-Ann P.Uriel PIERCE Medic aid HEALTH CHOICE - HEALTH CHOICE nt [id number] 1 MANAGED MEDICAID [place], [place] MEDICAID [phone] documented as of this encounter
--- OUTSIDE RECORDS SUMMARY | 2019-09-05 05:40 | XMS REPORT | Summary of Care ---
:1985 Author Organization [facility] - [address] [address] Care Team Providers Name Role Phone Yokasta Corona MD Primary Care Provider Reason for Visit Reason Comments Care (Routine) Status Reason Specialty Diagnoses / Referred By Referred To Procedures Contact Contact Closed Obstetrics & Diagnoses Liveborn infant, of rod , born in hospital by vaginal delivery Yokasta Corona [facility] Women's Gynecology Procedures DISCHARGE FOLLOW-UP: PRIVATE PHYSICIAN [address], [address] [place], [place] Kathryn Pérez [phone] Phone: Encounter Details Date Type Department Care Team Description 08/31/2019 Routine [facility] Women's Yokasta Corona, care following vaginal delivery (Primary Dx); Visit Healthcare- Depression, unspecified depression type; [address] Bipolar affective disorder, remission st atus unspecified [address] [place] [address] [address] [phone] [place] City[place]UAN CARLOS [phone] [address] [phone] Allergies No Known Allergiesdocumented as of this encounter (statuses as of 08/31/2019) Medications Medication Sig Dispensed Refills Start Date [...] 08/02/2019 Active (PRISTIQ) 25 mg mouth daily. [id number]: Depression, unspecified depression type desvenlafaxine succinate Take [...] as of this encounter (statuses as of 08/31/2019) Active Problems Problem Noted Date 39 weeks gestation of 08/21/2019 Low-lying placenta 08/21/2019 Bipolar disorder 08/21/2019 Obesity (BMI 30-39.9) 12/29/2018 documented as of this encounter (statuses as of 08/31/2019) Resolved Problems Problem Noted Date Resolved Date Liveborn , of rod , born in hospital by 08/22/2019 08/31/2019 vaginal delivery Encounter for female sterilization procedure 08/22/2019 08/31/2019 documented as of this encounter (statuses as of 08/31/2019) Immunizations Name Administration Dates Next Due TDAP [...] with recurrent depression. Patient asked to call [facility] psychiatry. She did make appointment with Dr. Hailey Berrios for 09/06/19. Patient to continue her current bipolar depression medications per psychiatry. She did call them for refills. Patient understands to seek help at emergency department should she have suicidal urges recurrentself-harm ideation. Follow up in 2 weeks or as needed. After visit summary (AVS ) documentation will be available through [employer] for this encounter. A total of 15 minutes was spent on the Video Call, chart review, and coordination of care with specialists. Yokasta Corona MD documented in this encounter Plan of Treatment Date Type Specialty Care Team Description 09/06/2019 Telemedicine Visit Psychiatry Obed Russell MD [address] [place] [address] [phone] Hailey Berrios MD [address] [place] [address]. [place] [phone] 09/14/2019 Telemedicine Visit Obstetrics & Bob Corona MD Gynecology [address] [place] [phone] Health Maintenance Due Date Last Done Comments [...] ID Effective Phone Address T [employer] [facility] xxxxxxxxx 2017-Ann P.OMikey BOX Medic aid HEALTH CHOICE - HEALTH CHOICE nt [id number] 1 MANAGED MEDICAID [place] [phone] documented as of this encounter
--- OUTSIDE RECORDS SUMMARY | 2019-09-05 05:40 | XMS REPORT | Summary of Care ---
:1985 Author Organization [facility] [[email or web address]] - [address] [address] Care Team Providers Name Role Phone Yokasta Corona MD Primary Care Provider Reason for Visit Reason Comments Notification Encounter Details Date Type Department Care Team Description 08/31/2019 Telephone [facility] Women's Yokasta Corona MD Notification Healthcare- [address], [place] [address] [address] [place] [phone] [phone] Allergies No Known Allergiesdocumented as of this [...] 08/02/2019 Active (PRISTIQ) 25 mg mouth daily. [id number]: Depression, unspecified depression type desvenlafaxine succinate Take [...] 09/06/2019 Telemedicine Visit Psychiatry Obed Russell MD [address] [place] [phone] Hailey Berrios MD [address] [place] [address]. [place] [phone] 09/14/2019 Telemedicine Visit Obstetrics & Chloe, Bob brown MD Gynecology [address] [place], [place] [address] [place] [phone] Health Maintenance Due Date Last Done Comments PNEUMOCOCCAL 0-64 YEARS COMBINED 1993 SERIES (1 of 1 - PPSV23) PAP SMEAR 2008 INFLUENZA VACCINE (#1) 2020 Postponed from 01/01/2019 (Refused) DTaP,Tdap,and Td Vaccines (2 - 06/09/2029 06/09/2019 Td) documented as of this encounter Results Not on filedocumented in this encounter Insurance Payer Benefit Plan / Subscriber ID Effective Phone Address Kathryn jessica [facility] xxxxxxxxx 2017-Ann P.OMikey BOX Medic aid HEALTH CHOICE - HEALTH CHOICE nt [id number] 1 MANAGED MEDICAID [place] MEDICA[place] [phone] documented as of this encounter
--- OUTSIDE RECORDS SUMMARY | 2019-09-05 05:40 | XMS REPORT | Summary of Care ---
:1985 Author Organization [facility] - [address] [address] Care Team Providers Name Role Phone Yokasta Corona MD Primary Care Provider Reason for Visit Reason Comments Assessment Encounter Details Date Type Department Care Team Description 09/04/[address] [facility] Women's Yokasta Corona MD Assessment Healthcare- [address], [place] [address] [address] [place] [address] [phone] Allergies No Known Allergiesdocumented as of this encounter (statuses as of 09/04/2019) Medications Medication Sig Dispensed Refills Start Date [...] 08/02/2019 Active (PRISTIQ) 25 mg mouth daily. [id number]: Depression, unspecified depression type desvenlafaxine succinate Take [...] as of this encounter (statuses as of 09/04/2019) Active Problems Problem Noted Date 39 weeks gestation of 08/21/2019 Low-lying placenta 08/21/2019 Bipolar disorder 08/21/2019 Obesity (BMI 30-39.9) 12/29/2018 documented as of this encounter (statuses as of 09/04/2019) Resolved Problems Problem Noted Date Resolved Date Liveborn , of rod , born in hospital by 08/22/2019 08/31/2019 vaginal delivery Encounter for female sterilization procedure 08/22/2019 08/31/2019 documented as of this encounter (statuses as of 09/04/2019) Immunizations Name Administration Dates Next Due TDAP [...] 09/06/2019 Telemedicine Visit Psychiatry Obed Russell MD [address] [place] [address] [phone] Hailey Berrios MD [address] [place] [address]. [place] [phone] 09/07/2019 Routine Visit Obstetrics & Yokasta Bolivar MD Gynecology [address] [place] [phone] 09/14/2019 Telemedicine Visit Obstetrics & Chloe, Bob brown MD Gynecology [address] [place] [phone] Health Maintenance Due Date Last Done [...] ID Effective Phone Address T [facility] xxxxxxxxx 2017-Ann PIERCE Medic aid HEALTH CHOICE - HEALTH CHOICE nt [id number] 1 MANAGED MEDICAID [place], [place] MEDICAID [phone] documented as of this encounter
[2019-09-05] MEDS ORDERED: KETOROLAC 30 MG/ML INJ ONE (06:11)
[2019-09-05] MEDS ORDERED: DIPHENHYDRAMINE 50 MG/ML VIAL ONE (06:11)
[2019-09-05] MEDS ORDERED: NA CHLORIDE 0.9% 1,000 ML ONE (06:11)
[2019-09-05] MEDS ORDERED: METOCLOPRAMIDE 10 MG/2mL INJ ONE (06:11)
[2019-09-05 06:28] LABS: Absolute Lymphocytes (CBC) 3.3 K/uL (0.7-4.9); Basophils % 0.6 % (0-1.3); Hematocrit 35.7 % (36.0-45.0); Lymphocytes % 37.5 % (15.3-44.8); MPV 8.6 fL (7.6-11.3); RBC Red Blood Cell Count 4.64 M/uL (3.86-4.86)
[2019-09-05 06:43] LABS: ALT/SGPT 20 U/L (12-78); AST/SGOT 22 U/L (15-37); Albumin 2.7 g/dL (3.4-5.0); Alkaline Phosphatase 106 U/L (45-117); BUN Blood Urea Nitrogen 11 mg/dL (7-18); Bicarbonate 25 mmol/L (21-32); Bilirubin Direct < 0.1 mg/dL (0-0.2); Bilirubin Total 0.3 mg/dL (0.2-1.0); Glucose Level 95 mg/dL (74-106); Magnesium 1.7 mg/dL (1.8-2.4); Potassium 3.5 mmol/L (3.5-5.1); Protein, Total 6.4 g/dL (6.4-8.2); Sodium Level 142 mmol/L (136-145); Troponin (Emerg Dept Use Only) < 0.02 ng/mL (0.0-0.045)
[2019-09-05] MEDS ORDERED: MAGNESIUM SULFATE 1 gm IVPB 1 GM/100 ML BAG IV ONE (07:05)
--- NOTE | 2019-09-05 07:14 | EDPHYS ---
Physician Documentation [facility] Name: Yuli Talbert Age: 34 yrs Sex: Female : 1985 Arrival Date: 09/05/2019 Time: 05:26 Bed 5 Private MD: ED Physician Dennis Pena HPI: 09/04 06:21 This 34 yrs old Female presents to ER via Ambulatory with complaints of Feet kb Swelling, High Blood Pressure. 06:21 The patient has elevated blood pressure and discovered this at home, with a home kb device. Onset: The symptoms/episode began/occurred 1.5 week(s) ago. Associated signs and symptoms: Pertinent positives: headache, swelling of feet and hands. Severity of symptoms: At its worst the blood pressure was 170 mm Hg, in the emergency department the blood pressure is improved, 149 mm Hg. The patient has experienced similar episodes in the past, a few times. The patient has not recently seen a physician. Pt reports she has had a headache for 1.5 weeks, has PP depression, and her BP has been high. States she had high BP throughout her so she has been monitoring it at home. States she has had swelling to feet and hands, that is now resolved. Has spoken to her OB and has a follow up appt on , but her BP was 170 at 0300 so she came in to get checked out. Reports headache wraps around head. 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 - Social history:: Smoking status: Patient reports the use of cigarette tobacco products, smokes one-half pack cigarettes per day. ROS: 06:19 Constitutional: Negative for fever, chills, and weight loss, Neck: Negative for injury, kb pain, and swelling, Cardiovascular: Negative for chest pain, palpitations, and edema, Respiratory: Negative for shortness of breath, cough, wheezing, and pleuritic chest pain, Abdomen/GI: Negative for abdominal pain, nausea, vomiting, diarrhea, and constipation, Back: Negative for injury and pain, MS/Extremity: Negative for injury and deformity, Skin: Negative for injury, rash, and discoloration. 06:19 Neuro: Positive for headache. Exam: 06:20 Constitutional: This is a well developed, well nourished patient who is awake, alert, kb and in no acute distress. Head/Face: Normocephalic, atraumatic. Neck: Trachea midline, no thyromegaly or masses palpated, and no cervical lymphadenopathy. Supple, full range of motion without nuchal rigidity, or vertebral point tenderness. No Meningismus. Chest/axilla: Normal chest wall appearance and motion. Nontender with no deformity. No lesions are appreciated. Cardiovascular: Regular rate and rhythm with a normal S1 and S2. No gallops, murmurs, or rubs. Normal PMI, no JVD. No pulse deficits. Respiratory: Lungs have equal breath sounds bilaterally, clear to auscultation and percussion. No rales, rhonchi or wheezes noted. No increased work of breathing, no retractions or nasal flaring. Abdomen/GI: Soft, non-tender, with normal bowel sounds. No distension or tympany. No guarding or rebound. No evidence of tenderness throughout. Skin: Warm, dry with normal turgor. Normal color with no rashes, no lesions, and no evidence of cellulitis. MS/ Extremity: Pulses equal, no cyanosis. Neurovascular intact. Full, normal range of motion. Neuro: Awake and alert, GCS 15, oriented to person, place, time, and situation. Cranial nerves II-XII grossly intact. Motor strength 5/5 in all extremities. Sensory grossly intact. Cerebellar exam normal. Normal gait. 06:20 ECG was reviewed by the Attending Physician. kb Vital Signs: 05:33 BP 140 / 104; Pulse 82; Resp 16; Temp 97.7; Pulse Ox 99% on R/A; Weight 86.18 kg (R); sg Height 5 ft. 8 in. (172.72 cm) (R); Pain 4/10; 05:34 BP 149 / 104; Pulse 82; Resp 18; Temp 97.8(TE); Pulse Ox 100% on R/A; oe 05:33 Body Mass Index 28.89 (86.18 kg, 172.72 cm) sg MDM: 05:53 Patient medically screened. kb 06:20 Data reviewed: vital signs, nurses notes. Data interpreted: Pulse oximetry: on room air kb is 100 %. Interpretation: normal. 07:12 Counseling: I had a detailed discussion with the patient and/or guardian regarding: the kb historical points, exam findings, and any diagnostic results supporting the discharge/admit diagnosis, lab results, the need for outpatient follow up, a family practitioner, to return to the emergency department if symptoms worsen or persist or if there are any questions or concerns that arise at home. ED course: Pt reports resolution of headache after treatment. 09/04 05:42 Order name: Basic Metabolic Panel rv 09/04 05:42 Order name: CBC with Diff rv 09/04 05:42 Order name: LFT's; Complete Time: 06:49 rv 09/04 05:42 Order name: Magnesium; Complete Time: 06:49 rv 09/04 05:42 Order name: Troponin (emerg Dept Use Only); Complete Time: 06:49 rv 09/04 05:43 Order name: Basic Metabolic Panel; Complete Time: 06:49 EDMS 09/04 05:43 Order name: CBC with Automated Diff; Complete Time: 06:32 EDMS 09/04 05:42 Order name: EKG; Complete Time: 05:44 rv 05 05:42 Order name: Cardiac monitoring; Complete Time: 06:06 rv 05 05:42 Order name: EKG - Nurse/Tech; Complete Time: 06:23 rv 09/04 05:42 Order name: IV Saline Lock; Complete Time: 06:06 rv 09/04 05:42 Order name: Labs collected and sent; Complete Time: 06:06 rv 09/04 05:42 Order name: O2 Per Protocol; Complete Time: 06:06 rv 09/04 05:42 Order name: O2 Sat Monitoring; Complete Time: 06:06 rv EC:20 Rate is 71 beats/min. Rhythm is regular. QRS [place] is Normal. [place] interval is normal at kb 124 msec. QRS interval is normal at 86 msec. QT interval is normal at 420 msec. Administered Medications: 06:05 Drug: TORadol - Ketorolac 15 mg Route: IVP; Site: right antecubital; jb4 07:51 Follow up: Response: No adverse reaction; Pain is decreased hb 06:06 Drug: Reglan 10 mg Route: IVP; Site: right antecubital; jb4 07:51 Follow up: Response: No adverse reaction hb 06:08 Drug: NS 0.9% 1000 ml Route: IV; Rate: 1000 ml; Site: right antecubital; jb4 07:25 Follow up: Response: No adverse reaction; IV Status: Completed infusion; IV Intake: hb 1000ml 06:08 Drug: Benadryl 12.5 mg Route: IVP; Site: right antecubital; jb4 07:00 Follow up: Response: No adverse reaction hb 07:03 Drug: Magnesium Sulfate 1 grams Route: IVPB; Infused Over: 30 mins; Site: right jb4 antecubital; 07:51 Follow up: Response: No adverse reaction; IV Status: Completed infusion; IV Intake: 50mlhb Disposition: 15:06 Co-signature as Attending Physician, Dennis Pena MD I agree with the [facility]. Disposition: 09/05/19 07:13 Discharged to Home. Impression: Headache, Essential (primary) hypertension. - Condition is Stable. - Discharge Instructions: Hypertension, Eekw-bh-Bjpp, Tension Headache, Yjwm-ni-Xeak. - Medication Reconciliation Form, Thank You Letter, Antibiotic Education, Prescription Opioid Use form. - Follow up: Emergency Department; When: As needed; Reason: Worsening of condition. Follow up: Private Physician; When: 2 - 3 days; Reason: Recheck today's complaints, Continuance of care, Re-evaluation by your physician. Signatures: Dispatcher [employer] EDAlexus Walters, CURB WORKER-C CURB WORKER-CkDany Toro, LYNDSAY UMANA Yael Choudhary RN RN Erick Armstrong RN RN [facility] Dennis Pena MD MD 4 Talat Allison RN RN rv Corrections: (The following items were deleted from the chart) 06:01 05:44 PROBNP+C.LAB.BRZ ordered. EDIN EDIN 06:01 05:44 PROTIME (+INR)+COAG.LAB.BRZ ordered. [facility] EDIN 07:52 07:13 09/05/2019 07:13 Discharged to Home. Impression: Headache; Essential (primary) hb hypertension. Condition is Stable. Forms are Medication Reconciliation Form, Thank You Letter, Antibiotic Education, Prescription Opioid Use. Follow up: Emergency Department; When: As needed; Reason: Worsening of condition. Follow up: Private Physician; When: 2 - 3 days; Reason: Recheck today's complaints, Continuance of care, Re-evaluation by your physician. kb
--- NOTE | 2019-09-05 07:14 | ER ---
Nurse's Notes [facility] Name: Yuli Talbert Age: 34 yrs Sex: Female : 1985 Arrival Date: 09/05/2019 Time: 05:26 Bed 5 Private MD: Diagnosis: Headache;Essential (primary) hypertension Presentation: 09/04 05:33 Chief complaint: Patient states: Migraine for about a week now, reports having swelling sg in lower extremities that began last night, reports having BP with systolic of 170's/100's at home, called her COUNSELOR AIDE [facility] who instructed her to continue to monitor BP at home, pt denies N/V/D/Fever at this time. Coronavirus screen: Proceed with normal triage. Ebola Screen: Patient negative for fever greater than or equal to 101.5 degrees Fahrenheit, and additional compatible Ebola Virus Disease symptoms Patient denies exposure to infectious person. Patient denies travel to an Ebola-affected area in the 21 days before illness onset. No symptoms or risks identified at this time. Initial Sepsis Screen: Does the patient meet any 2 criteria? No. Patient's initial sepsis screen is negative. Does the patient have a suspected source of infection? No. Patient's initial sepsis screen is negative. Risk Assessment: Do you want to hurt yourself or someone else? Patient reports no desire to harm self or others. Onset of symptoms was September 05, 2019. 05:33 Method Of Arrival: Ambulatory 05:33 Acuity: CANDICE 3 05:36 Care prior to arrival: None. Transition of care: patient was not received from another setting of care. 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 - Social history:: Smoking status: Patient reports the use of cigarette tobacco products, smokes one-half pack cigarettes per day. Screenin:48 Abuse screen: Denies threats or abuse. Denies injuries from another. Nutritional rv screening: No deficits noted. Tuberculosis screening: No symptoms or risk factors identified. Fall Risk None identified. Assessment: 05:47 General: Appears in no apparent distress. Behavior is calm. Pain: Complains of pain in rv dorsum of right foot and dorsum of left foot. Neuro: Level of Consciousness is awake, alert, obeys commands, Oriented to person, place, time, situation. Cardiovascular: Patient's skin is warm and dry. Respiratory: Airway is patent. Derm: Skin is intact. 07:50 Reassessment: Patient appears in no apparent distress at this time. Patient is alert, hb oriented x 3, equal unlabored respirations, skin warm/dry/pink. Patient denies pain at this time. Patient states feeling better. Patient states symptoms have improved. Vital Signs: 05:33 BP 140 / 104; Pulse 82; Resp 16; Temp 97.7; Pulse Ox 99% on R/A; Weight 86.18 kg (R); sg Height 5 ft. 8 in. (172.72 cm) (R); Pain 4/10; 05:34 BP 149 / 104; Pulse 82; Resp 18; Temp 97.8(TE); Pulse Ox 100% on R/A; oe 05:33 Body Mass Index 28.89 (86.18 kg, 172.72 cm) sg ED Course: 05:26 Patient arrived in ED. cl3 05:35 Triage completed. sg 05:35 Arm band placed on. sg 05:41 Talat Allison, RN is Primary Nurse. rv 05:48 Patient has correct armband on for positive identification. Pulse ox on. NIBP on. rv 05:53 Alexus Hughes FNP-C is PHCP. kb 05:53 Simeon Bosch MD is Attending Physician. kb 06:03 Inserted saline lock: 18 gauge in right antecubital area, using aseptic technique. rv Blood collected. 06:03 Initial lab(s) drawn, by me, sent to lab. rv 06:52 Dennis Pena MD is Attending Physician. kb 07:50 No provider procedures requiring assistance completed. IV discontinued, intact, hb bleeding controlled, No redness/swelling at site. Administered Medications: 06:05 Drug: TORadol - Ketorolac 15 mg Route: IVP; Site: right antecubital; jb4 07:51 Follow up: Response: No adverse reaction; Pain is decreased hb 06:06 Drug: Reglan 10 mg Route: IVP; Site: right antecubital; jb4 07:51 Follow up: Response: No adverse reaction hb 06:08 Drug: NS 0.9% 1000 ml Route: IV; Rate: 1000 ml; Site: right antecubital; jb4 07:25 Follow up: Response: No adverse reaction; IV Status: Completed infusion; IV Intake: hb 1000ml 06:08 Drug: Benadryl 12.5 mg Route: IVP; Site: right antecubital; jb4 07:00 Follow up: Response: No adverse reaction hb 07:03 Drug: Magnesium Sulfate 1 grams Route: IVPB; Infused Over: 30 mins; Site: right jb4 antecubital; 07:51 Follow up: Response: No adverse reaction; IV Status: Completed infusion; IV Intake: 50mlhb Intake: 07:25 IV: 1000ml; Total: 1000ml. hb 07:51 IV: 50ml; Total: 1050ml. hb Outcome: 07:13 Discharge ordered by . kb 07:50 Discharged to home ambulatory. hb 07:50 Condition: stable 07:50 Discharge instructions given to patient, Instructed on discharge instructions, follow up and referral plans. medication usage, Demonstrated understanding of instructions, follow-up care, medications. 07:52 Patient left the ED. hb Signatures: Alxeus Hughes, CARE COMPANION-C CARE COMPANION-Ckb Dany Scott RN RN sg Yael Choudhary RN RN Erick Armstrong RN RN jb4 Rusty Mortensen Ronaldo, RN RN Crystal Mcelroy cl3
[2019-09-05 08:15] VITALS: BP 149/104; TEMP 97.8; O2SAT 100
--- NOTE | 2019-09-05 11:35 | EKG ---
Test Date: 2019-09-05 Test Time: 06:19:41 Trademark Attorney: RV MEASUREMENT RESULTS: Intervals: Rate: 71 IN: 124 QRSD: 86 QT: 420 QTc: 456 [place]: P: 1 IN: 124 QRS: 33 T: 32 INTERPRETIVE STATEMENTS: Normal sinus rhythm Normal ECG No previous ECG available for comparison Electronically Signed On 09-05-19 11:34:44 CDT by John Hernandez
== END 2019-09-05 07:52 | disposition home or self-care (01) ==
LOC: ER 05:23
DX: I10 Essential (primary) hypertension (principal); F17.210 Nicotine dependence, cigarettes, uncomplicated; F31.9 Bipolar disorder, unspecified; F60.3 Borderline personality disorder
CPT/HCPCS: 93005; 85025; 80048; 36415; 83735; 80076; 84484; J2765; J1200; J3475; J7030; 96361; 96365; 96375; 99284

== ENCOUNTER 2020-09-21 17:59 | Emergency (ER) | payer OTHER ==
--- OUTSIDE RECORDS SUMMARY | 2020-09-21 18:02 | XMS REPORT | Continuity of Care Document ---
:[address] [facility] t Address [address] [place] [address] Care Team Providers Name Role Phone Unavailable Unavailable Unavailable Problems Condition Condition Condition Status Onset Resolution Last Treating Co mments Source Name Details Category Date Date Treatment Clinician Date Acute Acute Problem Active [facility] Encounter Encounter Problem [facility] gynecologi gynecologi Me moria kyra kyra l examinatio examinatio Ou tpati n without n without ent abnormal abnormal Clinic s finding finding Folliculit Folliculit Problem Active [facility] Encounter Encounter Problem Active [facility] - surveillan surveillan Me moria ce of ce of l vaginal vaginal Outpati ring ring ent hormonal hormonal Clinic s contracept contracept tino device tino device Pelvic Pelvic Problem Active [facility] pain pain [facility] Painful Painful Problem Active [facility] menstrual menstrual [facility] - periods periods [facility] Allergies, Adverse Reactions, Alerts This patient has no known allergies or adverse reactions. Medications Ordered Filled Start Stop Current Ordering Indication Dosage Frequency Signature Comments Components Source Medication Medication Date Date Medication? Clinician (SIG) Name Name Loestrin 24 Loestrin 24 2019-0 Yes Pal [address] [facility] Fe Fe 5-15 Rekhi [facility] - 00:00: [facility] Procedures This patient has no known procedures. Encounters Start End Encounter Admission Attending Care Care Encounter Source Date/Time Date/Time Type Type Clinicians Facility Department ID 2018-09-14 2018-09-14 Outpatient Nestor Baezt [id number] [facility] 10:01:00 10:01:00 t [facility] 2018-08-29 2018-08-29 Outpatient Nestor [place] [id number] [facility] 10[facility]44:00 10:44:00 t [facility] 2018-07-28 2018-07-28 Outpatient Nestor [place] [id number] [facility] 10:00:00 10:00:00 t [facility] 2017-12-16 2017-12-16 Outpatient Nestor [place] [id number] [facility] [address] 10:00[facility]00 10:00:00 [facility] 2017-10-05 2017-10-05 Outpatient Nestor [place] [id number] 12:00:00 12:00:00 t [facility] - Care Care [facility] 2017-09-29 2017-09-29 Outpatient Nestor [place] [id number] 11:00:00 11:00:00 t [facility] s - Care [facility] Results This patient has no known results.
--- NOTE | 2020-09-21 18:38 | EDPHYS ---
Physician Documentation [facility] Name: Yuli Talbert Age: 35 yrs Sex: Female : 1985 Arrival Date: 09/21/2020 Time: 18:03 Bed 16 Private MD: ED Physician Santiago Spence HPI: 09/21 18:28 This 35 yrs old Female presents to ER via Ambulatory with complaints of Ear cp Pain. 18:28 The patient presents with pain, that is acute. The complaints affect the left ear. cp Onset: The symptoms/episode began/occurred 1 day(s) ago. Associated signs and symptoms: Pertinent positives: left upper tooth pain, Pertinent negatives: fever, rhinorrhea, sinus trouble, sore throat, vomiting. Severity of symptoms: in the emergency department the symptoms are unchanged. Historical: - Allergies: 18:11 NKDA; sv - PMHx: 18:11 Anxiety; Bipolar disorder; BORDERLINE PERSONALITY DISORDER; chronic back pain; sv - PSHx: 18:11 Knee surgery; sv ROS: 18:33 Constitutional: Negative for body aches, chills, fever. cp 18:33 ENT: Positive for dental pain, ear pain. 18:33 Skin: Negative for rash. 18:33 Neuro: Negative for headache. 18:33 All other systems are negative. Exam: 18:34 Head/Face: Normocephalic, atraumatic. cp 18:34 Constitutional: The patient appears in no acute distress, alert, awake, non-toxic, well developed, well nourished. 18:34 Eyes: Periorbital structures: appear normal, Conjunctiva: normal, no exudate, no injection, Sclera: no appreciated abnormality, Lids and lashes: appear normal, bilaterally. 18:34 ENT: External ear(s): are unremarkable, Ear canal(s): are normal, clear, TM's: dullness, bilaterally, Nose: is normal, Mouth: Lips: moist, Oral mucosa: moist, Posterior pharynx: Airway: no evidence of obstruction, patent, Tonsils: are normal in appearance, swelling, is not appreciated, erythema, is not appreciated, Dental exam: dental caries, that is moderate, gum swelling, not appreciated, missing teeth, diffusely, pain, that is mild, specifically in the upper left second bicuspid (#13), Voice: is normal. 18:34 Neck: ROM/movement: is normal, is supple, without pain, no range of motions limitations. Vital Signs: 18:11 BP 114 / 76; Pulse 87; Resp 18; Temp 97.1; Pulse Ox 99% ; Weight 86.18 kg; Height 5 ft. sv 6 in. (167.64 cm); 18:11 Body Mass Index 30.67 (86.18 kg, 167.64 cm) sv MDM: 18:21 Patient medically screened. cp 18:35 Differential diagnosis: otitis media, otitis externa, ruptured TM, foreign body, acute cp otalgia, cerumen impaction, dental abscess. 18:37 Data reviewed: vital signs, nurses notes, and as a result, I will discharge patient. cp 18:37 Counseling: I had a detailed discussion with the patient and/or guardian regarding: the cp historical points, exam findings, and any diagnostic results supporting the discharge/admit diagnosis, to return to the emergency department if symptoms worsen or persist or if there are any questions or concerns that arise at home. Administered Medications: No medications were administered Disposition: 18:45 Chart complete. cp Disposition: 09/21/20 18:38 Discharged to Home. Impression: Other disorders of teeth and supporting structures. - Condition is Stable. - Discharge Instructions: Dental Pain. - Prescriptions for Amoxicillin 875 mg Oral Tablet - take 1 tablet by ORAL route every 12 hours for 10 days; 20 tablet. Ibuprofen 800 mg Oral Tablet - take 1 tablet by ORAL route every 8 hours As needed take with food; 30 tablet. - Medication Reconciliation Form, Thank You Letter, Antibiotic Education, Prescription Opioid Use form. - Follow up: Private Physician; When: 2 - 3 days; Reason: Worsening of condition. - Problem is new. - Symptoms are unchanged. Addendum: 09/23/2020 14:54 Co-signature as Attending Physician, Santiago Spence MD I agree with the assessment and the [facility] plan of care. Signatures: Mayelin Jhaveri, RN RN Santiago Neil MD MD [facility] Amari Gallardo PA PA cp Garcia, Victoria RN RN vg1 Corrections: (The following items were deleted from the chart) 09/21 18:54 18:38 09/21/2020 18:38 Discharged to Home. Impression: Other disorders of teeth and vg1 supporting structures. Condition is Stable. Forms are Medication Reconciliation Form, Thank You Letter, Antibiotic Education, Prescription Opioid Use. Follow up: Private Physician; When: 2 - 3 days; Reason: Worsening of condition. Problem is new. Symptoms are unchanged. cp
--- NOTE | 2020-09-21 18:38 | ER ---
Nurse's Notes [facility] Name: Yuli Talbert Age: 35 yrs Sex: Female : 1985 Arrival Date: 09/21/2020 Time: 18:03 Bed 16 Private MD: Diagnosis: Other disorders of teeth and supporting structures Presentation: 09/21 18:10 Chief complaint: Patient states: left ear pain x 1 day. Coronavirus screen: Client sv denies travel out of the [place] in the last 14 days. At this time, the client does not indicate any symptoms associated with coronavirus-19. Ebola Screen: No symptoms or risks identified at this time. Risk Assessment: Do you want to hurt yourself or someone else? Patient reports no desire to harm self or others. Onset of symptoms was September 20, 2020. 18:10 Method Of Arrival: Ambulatory sv 18:10 Acuity: CANDICE 5 sv 18:11 Initial Sepsis Screen: Does the patient meet any 2 criteria? No. Patient's initial sv sepsis screen is negative. Does the patient have a suspected source of infection? No. Patient's initial sepsis screen is negative. Triage Assessment: 18:10 General: Appears in no apparent distress. uncomfortable, Behavior is calm, cooperative, sv appropriate for age. Pain: Complains of pain in left ear. EENT: Reports pain in left ear. Neuro: Level of Consciousness is awake, alert, obeys commands, Gait is steady. Respiratory: Respiratory effort is even, unlabored. Historical: - Allergies: 18:11 NKDA; sv - PMHx: 18:11 Anxiety; Bipolar disorder; BORDERLINE PERSONALITY DISORDER; chronic back pain; sv - PSHx: 18:11 Knee surgery; sv Screenin:53 Abuse screen: Denies threats or abuse. Nutritional screening: No deficits noted. vg1 Tuberculosis screening: No symptoms or risk factors identified. Fall Risk None identified. Assessment: 18:52 General: Appears in no apparent distress. comfortable, Behavior is calm, cooperative. vg1 Pain: Complains of pain in left ear Pain currently is 8 out of 10 on a pain scale. Neuro: Level of Consciousness is awake, alert, obeys commands, Oriented to person, place, time, situation. Cardiovascular: Patient's skin is warm and dry. Respiratory: Airway is patent Respiratory effort is even, unlabored. EENT: Reports pain left ear. Derm: Skin is intact, is healthy with good turgor. Musculoskeletal: Circulation, motion, and sensation intact. Vital Signs: 18:11 BP 114 / 76; Pulse 87; Resp 18; Temp 97.1; Pulse Ox 99% ; Weight 86.18 kg; Height 5 ft. sv 6 in. (167.64 cm); 18:11 Body Mass Index 30.67 (86.18 kg, 167.64 cm) sv ED Course: 18:03 Patient arrived in ED. mr 18:10 Arm band placed on. sv 18:11 Triage completed. sv 18:18 Amari Gallardo PA is PHCP. 18:18 Santiago Spence MD is Attending Physician. ryan 18:18 Maddie Sanders, RN is Primary Nurse. vg1 18:53 Patient has correct armband on for positive identification. Call light in reach. vg1 18:53 No provider procedures requiring assistance completed. Patient did not have IV access vg1 during this emergency room visit. Administered Medications: No medications were administered Outcome: 18:38 Discharge ordered by MD. cp 18:53 Discharged to home ambulatory. vg1 18:53 Condition: stable 18:53 Discharge instructions given to patient, Instructed on discharge instructions, follow up and referral plans. medication usage, Demonstrated understanding of instructions, follow-up care, medications, Prescriptions given X 2. 18:54 Patient left the ED. vg1 Signatures: Mayelin Jhaveri RN RN Mary Ferris mr Amari Gallardo PA PA cp Garcia, Victoria, RN RN vg1
[2020-09-21 19:06] VITALS: BP 114/76; TEMP 97.1; O2SAT 99
== END 2020-09-21 18:54 | disposition home or self-care (01) ==
LOC: ER 17:59
DX: K08.89 Other specified disorders of teeth and supporting structures (principal); K02.9 Dental caries, unspecified; F41.9 Anxiety disorder, unspecified; F31.9 Bipolar disorder, unspecified; F60.3 Borderline personality disorder; M54.9 Dorsalgia, unspecified; G89.29 Other chronic pain
CPT/HCPCS: 99282

== ENCOUNTER 2021-03-09 13:21 | Emergency (ER) | payer OTHER ==
--- NOTE | 2021-03-09 15:14 | ER ---
Nurse's Notes [facility] Name: Yuli Talbert Age: 35 yrs Sex: Female : 1985 Arrival Date: 03/09/2021 Time: 13:23 Bed 12 Private MD: Diagnosis: Presentation: 03/09 14:00 Chief complaint: Patient states: Left ear pain, sore throat, JACINTO, fever since yesterday. jl7 Coronavirus screen: Vaccine status: Patient reports being unvaccinated. fever, sore throat. Ebola Screen: No symptoms or risks identified at this time. Initial Sepsis Screen: Does the patient meet any 2 criteria? No. Patient's initial sepsis screen is negative. Does the patient have a suspected source of infection? No. Patient's initial sepsis screen is negative. Risk Assessment: Do you want to hurt yourself or someone else? Patient reports no desire to harm self or others. Onset of symptoms was March 08, 2021. 14:00 Method Of Arrival: Ambulatory 7 14:00 Acuity: CANDICE 4 jl7 Historical: - Allergies: 14:01 NKDA; jl7 - PMHx: 14:01 Anxiety; Bipolar disorder; BORDERLINE PERSONALITY DISORDER; chronic back pain; jl7 - Immunization history:: Client reports having NOT received the Covid vaccine. - Social history:: Smoking status: Patient reports the use of cigarette tobacco products, smokes one-half pack cigarettes per day. Vital Signs: 14:00 BP 109 / 68; Pulse 102; Resp 17; Temp 99.1; Pulse Ox 95% on R/A; Weight 92.99 kg; jl7 Height 5 ft. 6 in. (167.64 cm); Pain 7/10; 14:00 Body Mass Index 33.09 (92.99 kg, 167.64 cm) jl7 ED Course: 13:23 Patient arrived in ED. ds1 14:01 Triage completed. jl7 14:01 Arm band placed on right wrist. Patient placed in waiting room, Patient notified of jl7 wait time. 14:50 [facility]C [facility] kb 14:50 Yoana Holder MD is Attending Physician. kb 15:05 [facility]. Unable to locate patient. Will jl7 disposition as left without being seen by a provider. 15:08 Karma Loyd, RN is Primary Nurse. jl7 15:08 Patient's name was called from ER lobby. No response. Unable to locate patient. Will jl7 disposition as left without being seen by a provider. 15:13 Patient's name was called from ER lobby. No response. Unable to locate patient. Will jl7 disposition as left without being seen by a provider. Administered Medications: No medications were administered Outcome: 15:13 Patient left the ED. jl7 Signatures: Alexus Hughes, RUBBER FLAP TUBER MACHINE OPERATOR-C RUBBER FLAP TUBER MACHINE OPERATOR-Brandie Aquino ds1 Karma Loyd, RN RN jl7
[2021-03-09 15:42] VITALS: BP 109/68; TEMP 99.1; O2SAT 95
--- OUTSIDE RECORDS SUMMARY | 2021-03-15 15:35 | XMS REPORT | Continuity of Care Document ---
:1985 Author Organization [facility] [place] t Address [address] [place] [address] Care Team Providers Name Role Phone ERMELINDA Primary Care Physician Unavailable Bob BOWLES Attending Clinician Unavailable JADA Attending Clinician Unavailable NILAM Attending Clinician Unavailable SELF Attending Clinician Unavailable Mynor Aldrich DO Attending Clinician HARMONY Attending Clinician Unavailable Harmony MONCADA Attending Clinician Chris NGUYEN Attending Clinician CHRIS Attending Clinician Unavailable Bob Butterfield MD Attending Clinician Bob BUTTERFIELD Attending Clinician Unavailable Doctor Unassigned, Name Attending Clinician Unavailable YAUSH ORTEGA Attending Clinician Unavailable Grace NAAVRRO Attending Clinician Unavailable Ermelinda NGUYEN Attending Clinician ERMELINDA Attending Clinician Unavailable 2, Lab Attending Clinician Unavailable Mike Wadsworth MD Attending Clinician Lena Lopes MD Attending Clinician Claudette NGUYEN Attending Clinician Km Holder MD Attending Clinician Ari MENA Attending Clinician Cyndi RAMÍREZ Attending Clinician Unavailable Malissa NGUYEN R Attending Clinician Timmy Attending Clinician Unavailable Harirah MD, M Attending Clinician Jaiden NGUYEN Attending Clinician Ron Campos MD Attending Clinician Pob, Lab Main Attending Clinician Unavailable Jada CHUNG Attending Clinician Nurse, Women's Health Attending Clinician Unavailable Faculty, Rmchp Mfm Attending Clinician Unavailable Mike Wadsworth MD Admitting Clinician Payers Payer Name Policy Type Policy Number Effective Date Expiration Date Seth [facility] [id number] 2017 CHOICE MEDICAID 00:00:00 [facility] [id number] 2020 00:00:00 [facility] [id number] 2020 [facility] 00:00:00 Problems Condition Condition Condition Status Onset Resolution Last Treating Co mments Source Name Details Category Date Date Treatment Clinician Date Liveborn Liveborn Disease Active Unive rs infant, of infant, of 4-21 [place] born in born in [facility] by vaginal by vaginal delivery delivery Encounter Encounter Disease Active Uni vers for female for female 4-21 it y [place] procedure Bran ch 39 weeks 39 weeks Disease Active 2020-0 Unive rs gestation gestation 4-20 ity of of of 00:00: [place] 00 [facility] Low-lying Low-lying Disease Active 2019- Uni vers placenta placenta 4-20 ity of 00:00: [address] Bipolar Bipolar Disease Active 2020- Univers disorder disorder 4-20 ity of 00:00: [place] [facility] Obesity Obesity Disease Active 2019- Univers (BMI (BMI 8-29 ity of 30-39.9) 30-39.9) 00:00: [place] [facility] Acute Acute Problem Active [facility]initis [...] for for [facility] Me magaña ce of ce of l vaginal vaginal Outpati ring ring ent hormonal hormonal Clinic s contracept contracept tino device tino device Pelvic Pelvic Problem Active [facility] pain [facility] Painful Painful Problem Active [facility] menstrual menstrual [facility] - periods periods [facility] Allergies, Adverse Reactions, Alerts Allergy Allergy Status Severity Reaction(s) Onset Inactive Treating Comm ents Source Name Type Date Date Clinician NO KNOWN Drug Active Univers ALLERGIE Class ity of S [facility] Family History Family Member Diagnosis Comments Start Date Stop Date Source Brother Psychiatry [facility] Father Depression [facility] Father Psychiatry [facility] Mother Depression [facility] Mother Diabetes [facility] Mother Psychiatry [facility] Family member Arthritis [facility] Family member Asthma [facility] Family member defects Universi ty [facility] Family member Breast Cancer Universi ty [facility] Family member Cancer [facility] Family member Colon Cancer Universit y [facility] Family member Genetic [facility] Family member Heart [facility] Family member High cholesterol Unive rsity of [facility] Family member Hypertension Universit y [facility] Family member Mental retardation Uni versity [facility] Family member Neurological Universit y [facility] Family member Osteoporosis Universit y [facility] Family member Ovarian Cancer Univers ity of [facility] Social [facility] Social Habit Start Date Stop Date Quantity Comments Source ASSERTION 2018-12-04 University of 00:00:00 [facility] History of Cigarette Smoker Universi ty of tobacco use [facility] Exposure to Not sure University SARS-CoV-[address] [facility] (event) [place] Tobacco use and 2020-10-23 2020-10-23 Current user Univers ity of exposure 00:00:00 00:00:00 [facility] Alcohol intake 2020-10-23 2020-10-23 Ex-drinker University 00:00:00 00:00:00 (finding) [facility] Tobacco Comment 2019-03-16 2019-03-16 Last cigarette Unive rsity of 00:00:00 00:00:00 03/15/2019; [facility] vaping Branch Sex Assigned At [birth year] Universit y of 00:00:00 00:00:00 [facility] Smoking Status Start Date Stop Date Source Current every day smoker 2020-10-23 00:00:00 [facility] Medications Ordered Filled Start Stop Current Ordering Indication Dosage Frequency Signature Comments Components Source Medication Medication Date Date Medication? Clinician (SIG) Name Name dextroamphe 2020-1 Yes [id number] 10mg Take 1 Univers tamine-amph 0-30 tablet by ity of etamine 10 [place] 00 (three) Medical times Branch daily. dextroamphe 2020-1 Yes [id number] 10mg Take 1 Univers tamine-amph 0-30 tablet by ity of etamine 10 00:[place]: [place] 00 (three) Medical times Branch daily. dextroamphe 2020-1 Yes [id number] 10mg Take 1 Univers tamine-amph 0-30 tablet by ity of etamine 10 00:00: [place] 00 (three) Medical times Branch daily. dextroamphe 2020-1 Yes [id number] 10mg Take 1 Univers tamine-amph 0-30 tablet by ity of etamine 10 [place]: [place] 00 (three) Medical times Branch daily. dextroamphe 2020-1 Yes [id number] 10mg Take 1 Univers tamine-amph 0-30 tablet by ity of etamine 10 00:00: [place] 00 (three) Medical times Branch daily. dextroamphe 2020-1 Yes [id number] 10mg Take 1 Univers tamine-amph 0-30 tablet by ity of etamine 10 00:00: [place] 00 (three) Medical times Branch daily. dextroamphe 2020-1 Yes [id number] 10mg Take 1 Univers tamine-amph 0-30 tablet by ity of etamine 10 00:00: [place] 00 (three) Medical times Branch daily. dextroamphe 2020-1 Yes [id number] 10mg Take 1 Univers tamine-amph 0-30 tablet by ity of etamine 10 00:00: [place] 00 (three) Medical times Branch daily. dextroamphe 2020- Yes [id number] 10mg Take 1 Univers tamine-amph 0-30 tablet by ity of etamine 10 00:00: [place] tablet 00 (three) Medical times Branch daily. dextroamphe 2020- Yes [id number] 10mg Take 1 Univers tamine-amph 0-30 tablet by ity of etamine 10 00:00: [place] 00 (three) Medical times Branch daily. dextroamphe 2020- Yes [id number] 10mg Take 1 Univers tamine-amph 0-30 tablet by ity of etamine 10 00:00: mouth [place] tablet 00 (three) Medical times Branch daily. dextroamphe 2020- Yes [id number] 10mg Take 1 Univers tamine-amph 0-30 tablet by ity of etamine 10 00:00: mouth [place] tablet 00 (three) Medical times Branch daily. dextroamphe 2020- Yes [id number] 10mg Take 1 Univers tamine-amph 0-30 tablet by ity of etamine 10 00:00: mouth [place] tablet 00 (three) Medical times Branch daily. dextroamphe 2019- Yes [id number] Take one Univers tamine-amph 0-02 tablet ity of etamine 10 00:00: [place] tablet 00 day Medical Branch desvenlafax 2020-0 Yes [id number] 25mg Take 25 mg Univers ine 9-23 by mouth ity of succinate 00:00: daily. [place] (PRISTIQ) 00 Medical 25 mg Tb24 Branch ARIPiprazol 2020-0 Yes [id number] 15mg Take 1 Univers e 15 mg 9-23 tablet by ity of tablet 00:00: mouth [place] 00 daily. Medical Branch clonazePAM 2020-0 Yes [id number] .5mg Take 1 U nivers 0.5 mg 9-23 tablet by ity of tablet 00:00: mouth once [place] 00 daily as Medical needed for Branch Other (Anxiety). traZODone 2020-0 Yes [id number] Take one Univers 50 mg 9-23 tablet at ity of tablet 00:00: bedtime as [place] 00 needed for Medical insomnia Branch desvenlafax 2020-0 Yes [id number] 50mg Take 1 Univers ine 9-23 tablet by ity of succinate 00:00: mouth [place] (PRISTIQ) 00 daily. Medical 50 mg 24 hr Branch tablet desvenlafax 2020-0 Yes [id number] 25mg Take 25 mg Univers ine 9-23 by mouth ity of succinate 00:00: daily. [place] (PRISTIQ) 00 Medical 25 mg Tb24 Branch ARIPiprazol 2020-0 Yes [id number] 15mg Take 1 Univers e 15 mg 9-23 tablet by ity of tablet 00:00: mouth [place] 00 daily. Medical Branch clonazePAM 2020-0 Yes [id number] .5mg Take 1 U nivers 0.5 mg 9-23 tablet by ity of tablet 00:00: mouth once [place] 00 daily as Medical needed for Branch Other (Anxiety). traZODone 2020-0 Yes [id number] Take one Univers 50 mg 9-23 tablet at ity of tablet 00:00: bedtime as [place] 00 needed for Medical insomnia Branch desvenlafax 2020-0 Yes [id number] 50mg Take 1 Univers ine 9-23 tablet by ity of succinate 00:00: mouth [place] (PRISTIQ) 00 daily. Medical 50 mg 24 hr Branch tablet desvenlafax 2020-0 Yes [id number] 25mg Take 25 mg Univers ine 9-23 by mouth ity of succinate 00:00: daily. [place] (PRISTIQ) 00 Medical 25 mg Tb24 Branch ARIPiprazol 2020-0 Yes [id number] 15mg Take 1 Univers e 15 mg 9-23 tablet by ity of tablet 00:00: mouth [place] 00 daily. Medical Branch clonazePAM 2020-0 Yes [id number] .5mg Take 1 U nivers 0.5 mg 9-23 tablet by ity of tablet 00:00: mouth once [place] 00 daily as Medical needed for Branch Other (Anxiety). traZODone 2020-0 Yes [id number] Take one Univers 50 mg 9-23 tablet at ity of tablet 00:00: bedtime as [place] 00 needed for Medical insomnia Branch desvenlafax 2020-0 Yes [id number] 50mg Take 1 Univers ine 9-23 tablet by ity of succinate 00:00: mouth [place] (PRISTIQ) 00 daily. Medical 50 mg 24 hr Branch tablet desvenlafax 2020-0 Yes [id number] 25mg Take 25 mg Univers ine 9-23 by mouth ity of succinate 00:00: daily. [place] (PRISTIQ) 00 Medical 25 mg Tb24 Branch ARIPiprazol 2020-0 Yes [id number] 15mg Take 1 Univers e 15 mg 9-23 tablet by ity of tablet 00:00: mouth [place] 00 daily. Medical Branch clonazePAM 2020-0 Yes [id number] .5mg Take 1 U nivers 0.5 mg 9-23 tablet by ity of tablet 00:00: mouth once [place] 00 daily as Medical needed for Branch Other (Anxiety). traZODone 2020-0 Yes [id number] Take one Univers 50 mg 9-23 tablet at ity of tablet 00:00: bedtime as [place] 00 needed for Medical insomnia Branch desvenlafax 2020-0 Yes [id number] 50mg Take 1 Univers ine 9-23 tablet by ity of succinate 00:00: mouth [place] (PRISTIQ) 00 daily. Medical 50 mg 24 hr Branch tablet desvenlafax 2020-0 Yes [id number] 25mg Take 25 mg Univers ine 9-23 by mouth ity of succinate 00:00: daily. [place] (PRISTIQ) 00 Medical 25 mg Tb24 Branch ARIPiprazol 2020-0 Yes [id number] 15mg Take 1 Univers e 15 mg 9-23 tablet by ity of tablet 00:00: mouth [place] 00 daily. Medical Branch clonazePAM 2020-0 Yes [id number] .5mg Take 1 U nivers 0.5 mg 9-23 tablet by ity of tablet 00:00: mouth once [place] 00 daily as Medical needed for Branch Other (Anxiety). traZODone 2020-0 Yes [id number] Take one Univers 50 mg 9-23 tablet at ity of tablet 00:00: bedtime as [place] 00 needed for Medical insomnia Branch desvenlafax 2020-0 Yes [id number] 50mg Take 1 Univers ine 9-23 tablet by ity of succinate 00:00: mouth [place] (PRISTIQ) 00 daily. Medical 50 mg 24 hr Branch tablet desvenlafax 2020-0 Yes [id number] 25mg Take 25 mg Univers ine 9-23 by mouth ity of succinate 00:00: daily. [place] (PRISTIQ) 00 Medical 25 mg Tb24 Branch ARIPiprazol 2020-0 Yes [id number] 15mg Take 1 Univers e 15 mg 9-23 tablet by ity of tablet 00:00: mouth [place] 00 daily. Medical Branch clonazePAM 2020-0 Yes [id number] .5mg Take 1 U nivers 0.5 mg 9-23 tablet by ity of tablet 00:00: mouth once [place] 00 daily as Medical needed for Branch Other (Anxiety). traZODone 2020-0 Yes [id number] Take one Univers 50 mg 9-23 tablet at ity of tablet 00:00: bedtime as [place] 00 needed for Medical insomnia Branch desvenlafax 2020-0 Yes [id number] 50mg Take 1 Univers ine 9-23 tablet by ity of succinate 00:00: mouth [place] (PRISTIQ) 00 daily. Medical 50 mg 24 hr Branch tablet desvenlafax 2020-0 Yes [id number] 25mg Take 25 mg Univers ine 9-23 by mouth ity of succinate 00:00: daily. [place] (PRISTIQ) 00 Medical 25 mg Tb24 Branch ARIPiprazol 2020-0 Yes [id number] 15mg Take 1 Univers e 15 mg 9-23 tablet by ity of tablet 00:00: mouth [place] 00 daily. Medical Branch clonazePAM 2020-0 Yes [id number] .5mg Take 1 U nivers 0.5 mg 9-23 tablet by ity of tablet 00:00: mouth once [place] 00 daily as Medical needed for Branch Other (Anxiety). traZODone 2020-0 Yes [id number] Take one Univers 50 mg 9-23 tablet at ity of tablet 00:00: bedtime as [place] 00 needed for Medical insomnia Branch desvenlafax 2020-0 Yes [id number] 50mg Take 1 Univers ine 9-23 tablet by ity of succinate 00:00: mouth [place] (PRISTIQ) 00 daily. Medical 50 mg 24 hr Branch tablet desvenlafax 2020-0 Yes [id number] 25mg Take 25 mg Univers ine 9-23 by mouth ity of succinate 00:00: daily. [place] (PRISTIQ) 00 Medical 25 mg Tb24 Branch ARIPiprazol 2020-0 Yes [id number] 15mg Take 1 Univers e 15 mg 9-23 tablet by ity of tablet 00:00: mouth [place] 00 daily. Medical Branch clonazePAM 2020-0 Yes [id number] .5mg Take 1 U nivers 0.5 mg 9-23 tablet by ity of tablet 00:00: mouth once [place] 00 daily as Medical needed for Branch Other (Anxiety). traZODone 2020-0 Yes [id number] Take one Univers 50 mg 9-23 tablet at ity of tablet 00:00: bedtime as [place] 00 needed for Medical insomnia Branch desvenlafax 2020-0 Yes [id number] 50mg Take 1 Univers ine 9-23 tablet by ity of succinate 00:00: mouth [place] (PRISTIQ) 00 daily. Medical 50 mg 24 hr Branch tablet desvenlafax 2020-0 Yes [id number] 25mg Take 25 mg Univers ine 9-23 by mouth ity of succinate 00:00: daily. [place] (PRISTIQ) 00 Medical 25 mg Tb24 Branch ARIPiprazol 2020-0 Yes [id number] 15mg Take 1 Univers e 15 mg 9-23 tablet by ity of tablet 00:00: mouth [place] 00 daily. Medical Branch clonazePAM 2020-0 Yes [id number] .5mg Take 1 U nivers 0.5 mg 9-23 tablet by ity of tablet 00:00: mouth once [place] 00 daily as Medical needed for Branch Other (Anxiety). traZODone 2020-0 Yes [id number] Take one Univers 50 mg 9-23 tablet at ity of tablet 00:00: bedtime as [place] 00 needed for Medical insomnia Branch desvenlafax 2020-0 Yes [id number] 50mg Take 1 Univers ine 9-23 tablet by ity of succinate 00:00: mouth [place] (PRISTIQ) 00 daily. Medical 50 mg 24 hr Branch tablet desvenlafax 2020-0 Yes [id number] 25mg Take 25 mg Univers ine 9-23 by mouth ity of succinate 00:00: daily. [place] (PRISTIQ) 00 Medical 25 mg Tb24 Branch ARIPiprazol 2020-0 Yes [id number] 15mg Take 1 Univers e 15 mg 9-23 tablet by ity of tablet 00:00: mouth [place] 00 daily. Medical Branch clonazePAM 2020-0 Yes [id number] .5mg Take 1 U nivers 0.5 mg 9-23 tablet by ity of tablet 00:00: mouth once [place] 00 daily as Medical needed for Branch Other (Anxiety). traZODone 2020-0 Yes [id number] Take one Univers 50 mg 9-23 tablet at ity of tablet 00:00: bedtime as [place] 00 needed for Medical insomnia Branch desvenlafax 2020-0 Yes [id number] 50mg Take 1 Univers ine 9-23 tablet by ity of succinate 00:00: mouth [place] (PRISTIQ) 00 daily. Medical 50 mg 24 hr Branch tablet desvenlafax 2020-0 Yes [id number] 25mg Take 25 mg Univers ine 9-23 by mouth ity of succinate 00:00: daily. [place] (PRISTIQ) 00 Medical 25 mg Tb24 Branch ARIPiprazol 2020-0 Yes [id number] 15mg Take 1 Univers e 15 mg 9-23 tablet by ity of tablet 00:00: mouth [place] 00 daily. Medical Branch clonazePAM 2020-0 Yes [id number] .5mg Take 1 U nivers 0.5 mg 9-23 tablet by ity of tablet 00:00: mouth once [place] 00 daily as Medical needed for Branch Other (Anxiety). traZODone 2020-0 Yes [id number] Take one Univers 50 mg 9-23 tablet at ity of tablet 00:00: bedtime as [place] 00 needed for Medical insomnia Branch desvenlafax 2020-0 Yes [id number] 50mg Take 1 Univers ine 9-23 tablet by ity of succinate 00:00: mouth [place] (PRISTIQ) 00 daily. Medical 50 mg 24 hr Branch tablet desvenlafax 2020-0 Yes [id number] 25mg Take 25 mg Univers ine 9-23 by mouth ity of succinate 00:00: daily. [place] (PRISTIQ) 00 Medical 25 mg Tb24 Branch ARIPiprazol 2020-0 Yes [id number] 15mg Take 1 Univers e 15 mg 9-23 tablet by ity of tablet 00:00: mouth [place] 00 daily. Medical Branch clonazePAM 2020-0 Yes [id number] .5mg Take 1 U nivers 0.5 mg 9-23 tablet by ity of tablet 00:00: mouth once [place] 00 daily as Medical needed for Branch Other (Anxiety). traZODone 2020-0 Yes [id number] Take one Univers 50 mg 9-23 tablet at ity of tablet 00:00: bedtime as [place] 00 needed for Medical insomnia Branch desvenlafax 2020-0 Yes [id number] 50mg Take 1 Univers ine 9-23 tablet by ity of succinate 00:00: mouth [place] (PRISTIQ) 00 daily. Medical 50 mg 24 hr Branch tablet desvenlafax 2020-0 Yes [id number] 25mg Take 25 mg Univers ine 9-23 by mouth ity of succinate 00:00: daily. [place] (PRISTIQ) 00 Medical 25 mg Tb24 Branch ARIPiprazol 2020-0 Yes [id number] 15mg Take 1 Univers e 15 mg 9-23 tablet by ity of tablet 00:00: mouth [place] 00 daily. Medical Branch clonazePAM 2020-0 Yes [id number] .5mg Take 1 U nivers 0.5 mg 9-23 tablet by ity of tablet 00:00: mouth once [place] 00 daily as Medical needed for Branch Other (Anxiety). traZODone 2020-0 Yes [id number] Take one Univers 50 mg 9-23 tablet at ity of tablet 00:00: bedtime as [place] 00 needed for Medical insomnia Branch desvenlafax 2020-0 Yes [id number] 50mg Take 1 Univers ine 9-23 tablet by ity of succinate 00:00: mouth [place] (PRISTIQ) 00 daily. Medical 50 mg 24 hr Branch tablet desvenlafax 2020-0 Yes [id number] 25mg Take 25 mg Univers ine 9-23 by mouth ity of succinate 00:00: daily. [place] (PRISTIQ) 00 Medical 25 mg Tb24 Branch ARIPiprazol 2020-0 Yes [id number] 15mg Take 1 Univers e 15 mg 9-23 tablet by ity of tablet 00:00: mouth [place] 00 daily. Medical Branch clonazePAM 2020-0 Yes [id number] .5mg Take 1 U nivers 0.5 mg 9-23 tablet by ity of tablet 00:00: mouth once [place] 00 daily as Medical needed for Branch Other (Anxiety). traZODone 2020-0 Yes [id number] Take one Univers 50 mg 9-23 tablet at ity of tablet 00:00: bedtime as [place] 00 needed for Medical insomnia Branch desvenlafax 2020-0 Yes [id number] 50mg Take 1 Univers ine 9-23 tablet by ity of succinate 00:00: mouth [place] (PRISTIQ) 00 daily. Medical 50 mg 24 hr Branch tablet desvenlafax 2020-0 Yes [id number] 25mg Take 25 mg Univers ine 9-23 by mouth ity of succinate 00:00: daily. [place] (PRISTIQ) 00 Medical 25 mg Tb24 Branch ARIPiprazol 2020-0 Yes [id number] 15mg Take 1 Univers e 15 mg 9-23 tablet by ity of tablet 00:00: mouth [place] 00 daily. Medical Branch clonazePAM 2020-0 Yes [id number] .5mg Take 1 U nivers 0.5 mg 9-23 tablet by ity of tablet 00:00: mouth once [place] 00 daily as Medical needed for Branch Other (Anxiety). traZODone 2020-0 Yes [id number] Take one Univers 50 mg 9-23 tablet at ity of tablet 00:00: bedtime as [place] 00 needed for Medical insomnia Branch desvenlafax 2020-0 Yes [id number] 50mg Take 1 Univers ine 9-23 tablet by ity of succinate 00:00: mouth [place] (PRISTIQ) 00 daily. Medical 50 mg 24 hr Branch tablet desvenlafax 2020-0 Yes [id number] 25mg Take 25 mg Univers ine 9-23 by mouth ity of succinate 00:00: daily. [place] (PRISTIQ) 00 Medical 25 mg Tb24 Branch ARIPiprazol 2020-0 Yes [id number] 15mg Take 1 Univers e 15 mg 9-23 tablet by ity of tablet 00:00: mouth [place] 00 daily. Medical Branch clonazePAM 2020-0 Yes [id number] .5mg Take 1 U nivers 0.5 mg 9-23 tablet by ity of tablet 00:00: mouth once [place] 00 daily as Medical needed for Branch Other (Anxiety). traZODone 2020-0 Yes [id number] Take one Univers 50 mg 9-23 tablet at ity of tablet 00:00: bedtime as [place] 00 needed for Medical insomnia Branch desvenlafax 2020-0 Yes [id number] 50mg Take 1 Univers ine 9-23 tablet by ity of succinate 00:00: mouth [place] (PRISTIQ) 00 daily. Medical 50 mg 24 hr Branch tablet dextroamphe 2020-0 Yes [id number] Take one Univers tamine-amph 9-01 tablet ity of etamine 10 00:00: twice a [place] mg tablet 00 day Medical Branch dextroamphe 2020-0 Yes [id number] Take one Univers tamine-amph 9-01 tablet ity of etamine 10 00:00: twice a [place] mg tablet 00 day Medical Branch dextroamphe 2020-0 Yes [id number] Take one Univers tamine-amph 9-01 tablet ity of etamine 10 00:00: twice a [place] mg tablet 00 day Medical Branch dextroamphe 2020-0 Yes [id number] Take one Univers tamine-amph 7-24 tablet ity of etamine 10 00:00: twice a [place] mg tablet 00 day Medical Branch desvenlafax 2020-0 Yes [id number] 50mg Take 1 Univers ine 6-24 tablet by ity of succinate 00:00: mouth [place] (PRISTIQ) 00 daily. Medical 50 mg 24 hr Branch tablet desvenlafax 2020-0 Yes [id number] 25mg Take 25 mg Univers ine 6-24 by mouth ity of succinate 00:00: daily. [place] (PRISTIQ) 00 Medical 25 mg Tb24 Branch ARIPiprazol 2020-0 Yes [id number] 15mg Take 1 Univers e 15 mg 6-24 tablet by ity of tablet 00:00: mouth [place] 00 daily. Medical Branch dextroamphe 2020-0 Yes [id number] Take one Univers tamine-amph 6-24 tablet ity of etamine 10 00:00: twice a [place] mg tablet 00 day Medical Branch propranolol 2020-0 Yes [id number] Take one Univers 10 mg 6-24 tablet ity of tablet 00:00: daily as [place] 00 needed for Medical panic Branch attack desvenlafax 2020-0 Yes [id number] 50mg Take 1 Univers ine 6-24 tablet by ity of succinate 00:00: mouth [place] (PRISTIQ) 00 daily. Medical 50 mg 24 hr Branch tablet desvenlafax 2020-0 Yes [id number] 25mg Take 25 mg Univers ine 6-24 by mouth ity of succinate 00:00: daily. [place] (PRISTIQ) 00 Medical 25 mg Tb24 Branch ARIPiprazol 2020-0 Yes [id number] 15mg Take 1 Univers e 15 mg 6-24 tablet by ity of tablet 00:00: mouth [place] 00 daily. Medical Branch dextroamphe 2020-0 Yes [id number] Take one Univers tamine-amph 6-24 tablet ity of etamine 10 00:00: twice a [place] mg tablet 00 day Medical Branch propranolol 2020-0 Yes [id number] Take one Univers 10 mg 6-24 tablet ity of tablet 00:00: daily as [place] 00 needed for Medical panic Branch attack desvenlafax 2020-0 Yes [id number] 50mg Take 1 Univers ine 6-24 tablet by ity of succinate 00:00: mouth [place] (PRISTIQ) 00 daily. Medical 50 mg 24 hr Branch tablet desvenlafax 2020-0 Yes [id number] 25mg Take 25 mg Univers ine 6-24 by mouth ity of succinate 00:00: daily. [place] (PRISTIQ) 00 Medical 25 mg Tb24 Branch ARIPiprazol 2020-0 Yes [id number] 15mg Take 1 Univers e 15 mg 6-24 tablet by ity of tablet 00:00: mouth [place] 00 daily. Medical Branch dextroamphe 2020-0 Yes [id number] Take one Univers tamine-amph 6-24 tablet ity of etamine 10 00:00: twice a [place] mg tablet 00 day Medical Branch propranolol 2020-0 Yes [id number] Take one Univers 10 mg 6-24 tablet ity of tablet 00:00: daily as [place] 00 needed for Medical panic Branch attack desvenlafax 2020-0 Yes [id number] 50mg Take 1 Univers ine 6-24 tablet by ity of succinate 00:00: mouth [place] (PRISTIQ) 00 daily. Medical 50 mg 24 hr Branch tablet desvenlafax 2020-0 Yes [id number] 25mg Take 25 mg Univers ine 6-24 by mouth ity of succinate 00:00: daily. [place] (PRISTIQ) 00 Medical 25 mg Tb24 Branch ARIPiprazol 2020-0 Yes [id number] 15mg Take 1 Univers e 15 mg 6-24 tablet by ity of tablet 00:00: mouth [place] 00 daily. Medical Branch propranolol 2020-0 Yes [id number] Take one Univers 10 mg 6-24 tablet ity of tablet 00:00: daily as [place] 00 needed for Medical panic Branch attack desvenlafax 2020-0 Yes [id number] 50mg Take 1 Univers ine 6-24 tablet by ity of succinate 00:00: mouth [place] (PRISTIQ) 00 daily. Medical 50 mg 24 hr Branch tablet desvenlafax 2020-0 Yes [id number] 25mg Take 25 mg [facility] ine 6-24 by mouth ity of succinate 00:00: daily. [place] (PRISTIQ) 00 Medical 25 mg Tb24 Branch ARIPiprazol 2020-0 Yes [id number] 15mg Take 1 [facility] e 15 mg 6-24 tablet by ity of tablet 00:00: mouth [place] 00 daily. Medical Branch propranolol 2020-0 Yes [id number] Take one [facility] 10 mg 6-24 tablet ity of tablet 00:00: daily as [place] 00 needed for Medical panic Branch attack clonazePAM 2020-0 Yes [id number] Take one [facility] 0.25 mg 5-20 tablet ity of disintegrat 00:00: daily as [place] ing tablet 00 needed for Med ical anxiety Branch clonazePAM 2020-0 Yes [id number] Take one [facility] 0.25 mg 5-20 tablet ity of disintegrat 00:00: daily as [place] tablet 00 needed for Med ical anxiety Branch Magnesium 2020-0 Yes Take by [facility] ers 250 mg Tab 5-08 mouth. ity of 13:46: [place] [address] Medical Branch Magnesium 2020-0 Yes Take by [facility] ers 250 mg Tab 5-08 mouth. ity of 13:46: [place] [address] Medical Branch Magnesium 2020-0 Yes Take by [facility] ers 250 mg Tab 5-08 mouth. ity of 13:46: [place] [address] Medical Branch Magnesium 2020-0 Yes Take by [facility] ers 250 mg Tab 5-08 mouth. ity of 13:46: [place] [address] Medical Branch Magnesium 2020-0 Yes Take by Univ ers 250 mg Tab 5-08 mouth. ity of 13:46: [place] [address] Medical Branch Magnesium 2020-0 Yes Take by [facility] ers 250 mg Tab 5-08 mouth. ity of 13:46: [place] [address] Medical Branch Magnesium 2020-0 Yes Take by Univ ers 250 mg Tab 5-08 mouth. ity of 13:46: [place] [address] Medical Branch clonazePAM 2020-0 Yes [id number] Take one [facility] 0.25 mg 5-06 tablet ity of disintegrat 00:00: daily as [place] tablet 00 needed for Med ical anxiety Branch traZODone 2020-0 Yes [id number] Take one [facility] 50 mg 5-06 tablet at ity of tablet 00:00: bedtime as [place] 00 needed for Medical insomnia Branch ARIPiprazol 2020-0 Yes [id number] 15mg Take 1 [facility] e 15 mg 5-06 tablet by ity of tablet 00:00: mouth [place] 00 daily. Medical Branch desvenlafax 2020-0 Yes [id number] 25mg Take 25 mg [facility] ine 5-06 by mouth ity of succinate 00:00: daily. [place] (PRISTIQ) 00 Medical 25 mg Tb24 Branch clonazePAM 2020-0 Yes [id number] Take one [facility] 0.25 mg 5-06 tablet ity of disintegrat 00:00: daily as [place] tablet 00 needed for Med ical anxiety Branch traZODone 2020-0 Yes [id number] Take one [facility] 50 mg 5-06 tablet at ity of tablet 00:00: bedtime as [place] 00 needed for Medical insomnia Branch ARIPiprazol 2020-0 Yes [id number] 15mg Take 1 [facility] e 15 mg 5-06 tablet by ity of tablet 00:00: mouth [place] 00 daily. Medical Branch desvenlafax 2020-0 Yes [id number] 25mg Take 25 mg [facility] ine 5-06 by mouth ity of succinate 00:00: daily. [place] (PRISTIQ) 00 Medical 25 mg Tb24 Branch clonazePAM 2020-0 Yes [id number] Take one [facility] 0.25 mg 5-06 tablet ity of disintegrat 00:00: daily as [place] tablet 00 needed for Med ical anxiety Branch traZODone 2020-0 Yes [id number] Take one [facility] 50 mg 5-06 tablet at ity of tablet 00:00: bedtime as [place] 00 needed for Medical insomnia Branch ARIPiprazol 2020-0 Yes [id number] 15mg Take 1 [facility] e 15 mg 5-06 tablet by ity of tablet 00:00: mouth [place] 00 daily. Medical Branch desvenlafax 2020-0 Yes [id number] 25mg Take 25 mg [facility] ine 5-06 by mouth ity of succinate 00:00: daily. [place] (PRISTIQ) 00 Medical 25 mg Tb24 Branch clonazePAM 2020-0 Yes [id number] Take one [facility] 0.25 mg 5-06 tablet ity of disintegrat 00:00: daily as [place] tablet 00 needed for Med ical anxiety Branch traZODone 2020-0 Yes [id number] Take one [facility] 50 mg 5-06 tablet at ity of tablet 00:00: bedtime as [place] 00 needed for Medical insomnia Branch ARIPiprazol 2020-0 Yes [id number] 15mg Take 1 [facility] e 15 mg 5-06 tablet by ity of tablet 00:00: mouth [place] 00 daily. Medical Branch desvenlafax 2020-0 Yes [id number] 25mg Take 25 mg [facility] ine 5-06 by mouth ity of succinate 00:00: daily. [place] (PRISTIQ) 00 Medical 25 mg Tb24 Branch clonazePAM 2020-0 Yes [id number] Take one [facility] 0.25 mg 5-06 tablet ity of disintegrat 00:00: daily as [place] ing tablet 00 needed for Med ical anxiety Branch traZODone 2020-0 Yes [id number] Take one [facility] 50 mg 5-06 tablet at ity of tablet 00:00: bedtime as [place] 00 needed for Medical insomnia Branch ARIPiprazol 2020-0 Yes [id number] 15mg Take 1 [facility] e 15 mg 5-06 tablet by ity of tablet 00:00: mouth [place] 00 daily. Medical Branch desvenlafax 2020-0 Yes [id number] 25mg Take 25 mg [facility] ine 5-06 by mouth ity of succinate 00:00: daily. [place] (PRISTIQ) 00 Medical 25 mg Tb24 Branch clonazePAM 2020-0 Yes [id number] Take one [facility] 0.25 mg 5-06 tablet ity of disintegrat 00:00: daily as [place] tablet 00 needed for Med ical anxiety Branch traZODone 2020-0 Yes [id number] Take one [facility] 50 mg 5-06 tablet at ity of tablet 00:00: bedtime as [place] 00 needed for Medical insomnia Branch ARIPiprazol 2020-0 Yes [id number] 15mg Take 1 [facility] e 15 mg 5-06 tablet by ity of tablet 00:00: mouth [place] 00 daily. Medical Branch desvenlafax 2020-0 Yes [id number] 25mg Take 25 mg [facility] ine 5-06 by mouth ity of succinate 00:00: daily. [place] (PRISTIQ) 00 Medical 25 mg Tb24 Branch traZODone 2020-0 Yes [id number] Take one [facility] 50 mg 5-06 tablet at ity of tablet 00:00: bedtime as [place] 00 needed for Medical insomnia Branch ARIPiprazol 2020-0 Yes [id number] 15mg Take 1 [facility] e 15 mg 5-06 tablet by ity of tablet 00:00: mouth [place] 00 daily. Medical Branch desvenlafax 2020-0 Yes [id number] 25mg Take 25 mg [facility] ine 5-06 by mouth ity of succinate 00:00: daily. [place] (PRISTIQ) 00 Medical 25 mg Tb24 Branch traZODone 2020-0 Yes [id number] Take one [facility] 50 mg 5-06 tablet at ity of tablet 00:00: bedtime as [place] 00 needed for Medical insomnia Branch ARIPiprazol 2020-0 Yes [id number] 15mg Take 1 [facility] e 15 mg 5-06 tablet by ity of tablet 00:00: mouth [place] 00 daily. Medical Branch desvenlafax 2020-0 Yes [id number] 25mg Take 25 mg [facility] ine 5-06 by mouth ity of succinate 00:00: daily. [place] (PRISTIQ) 00 Medical 25 mg Tb24 Branch traZODone 2020-0 Yes [id number] Take one [facility] 50 mg 5-06 tablet at ity of tablet 00:00: bedtime as [place] 00 needed for Medical insomnia Branch traZODone 2020-0 Yes [id number] Take one [facility] 50 mg 5-06 tablet at ity of tablet 00:00: bedtime as [place] 00 needed for Medical insomnia Branch traZODone 2020-0 Yes [id number] Take one [facility] 50 mg 5-06 tablet at ity of tablet 00:00: bedtime as [place] 00 needed for Medical insomnia Branch traZODone 2020-0 Yes [id number] Take one [facility] 50 mg 5-06 tablet at ity of tablet 00:00: bedtime as [place] 00 needed for Medical insomnia Branch traZODone 2020-0 Yes [id number] Take one [facility] 50 mg 5-06 tablet at ity of tablet 00:00: bedtime as [place] 00 needed for Medical insomnia Branch traZODone 2020-0 Yes [id number] Take one [facility] 50 mg 5-06 tablet at ity of tablet 00:00: bedtime as [place] 00 needed for Medical insomnia Branch desvenlafax 2020-0 Yes 75mg 75 mg, Univ ers ine 4-21 Oral, ity of succinate 14:00: DAILY, [place] (PRISTIQ) 00 First dose Medi kyra Tb24 75 mg on [facility] Branch 08/22/19 at 0900, Until Discontinu ed, Routine ARIPiprazol 2020-0 Yes 15mg 15 mg, Univ ers e (ABILIFY) 4-21 Oral, ity of tablet 15 14:00: DAILY, [place] mg 00 First dose Medical on [facility] Branch 08/22/19 at 0900, Until Discontinu ed, Routine 0 2020- No Take by [facility] vit 08-21 mouth. ity of calc,iron,f 11:54: 00:00 [place] olic 07 :00 Medical ( Branch VITAMIN ORAL) nutritional 0 2020- No Take by U gisela supplement/ 08-21 mouth. ity o f fiber 11:54: 00:00 [place] (JUICE PLUS 07 :00 Medical FIBRE ORAL) [place] ibuprofen 2019-0 Yes 600mg 600 mg, [facility] ers (IBU) 08-21 Oral, Q6H, ity of tablet 600 05:00: First dose [place] mg 00 on e Medical 08/22/19 at Branch 0000, Until Discontinu ed, Routine lactated 2020- No 1000mL at 125 [facility] ringers IV 08-21 mL/hr, ity of infusion 03:00: 06:57 1,000 mL, [place] 1,000 mL 00 :00 IV Medical Infusion, Branch ONCE, 1 dose, 08/21/19 at 2200, Routine rho(D) 0 Yes 300ug 300 mcg, [facility] s immune 08-21 Intramuscu ity of globulin 02:55: lar, ONCE, [place] (RHOGAM) 51 For 1 Medical syringe 300 dose, Branch mcg Conditiona l, Routine rho(D) 0 Yes 300ug 300 mcg, [facility] s immune 08-21 Intramuscu ity of globulin 02:55: lar, ONCE, [place] (RHOGAM) 51 For 1 Medical syringe 300 dose, Branch mcg Conditiona l, Routine ondansetron 2019-0 Yes 4mg 4 mg, Slow Univers (ZOFRAN 08-21 IV Push, ity of (PF)) 02:55: Q8HPRN, [place] injection 4 42 Starting Medi kyra mg Mon Branch 08/21/19 at 2155, Until Discontinu ed, Routine, Nausea and Vomiting (N/V) simethicone 2019-0 Yes 160mg 160 mg, Un kit[facility] (GAS RELIEF 08-21 Oral, ity of (SIMETHICON 02:55: PC+HSPRN, [place] E)) 42 Starting Medical chewable Mon Branch tablet 160 08/21/19 at mg 2155, Until Discontinu ed, Routine, Gas ondansetron 2019-0 Yes 4mg 4 mg, Slow Univers (ZOFRAN 08-21 IV Push, ity of (PF)) 02:55: Q8HPRN, [place] injection 4 42 Starting Medi kyra mg [facility] Branch 08/21/19 at 2154, Until Discontinu ed, Routine, Nausea and Vomiting (N/V) simethicone 2020-0 Yes 160mg 160 mg, Un kitty (GAS RELIEF 08-21 Oral, ity of (SIMETHICON 02:55: PC+HSPRN, [place] E)) 42 Starting Medical chewable Mon Branch tablet 160 08/21/19 at mg 2154, Until Discontinu ed, Routine, Gas diphenhydrA 2020-0 Yes 25mg 25 mg, IV U nivers MINE-0.9 % 08-21 Piggyback, ity of sod.chlr 02:55: Administer [place] (BENADRYL) 41 over 30 Medica l 25 mg/50 mL Minutes, Bran ch piggyback Q6HPRN, 1 25 mg dose, Starting 08/21/19 at 2154, Until Discontinu ed, Routine, Itching diphenhydrA 2020-0 Yes 25mg 25 mg, Univ ers MINE - Oral, ity of (BENADRYL) 02:55: Q6HPRN, [place] tablet 25 41 Starting Medica l mg [facility] Branch 08/21/19 at 2154, Until Discontinu ed, Routine, Sleep, Itching bisacodyL 2020-0 Yes 10mg 10 mg, Univer s (DULCOLAX) 08-21 Rectal, ity of suppository 02:55: QDAILYPRN, [place] 10 mg 41 Starting Medical Mon Branch 08/21/19 at 2154, Until Discontinu ed, Routine, Constipati on docusate 2020-0 Yes 240mg 240 mg, Unive rs calcium 08-21 Oral, ity of (SURFAK) 02:55: QDAILYPRN, [place] capsule 240 41 Starting Medi kyra mg [facility] Branch 08/21/19 at 2154, Until Discontinu ed, Routine, Constipati on magnesium 2020-0 Yes 30mL 30 mL, Univer s hydroxide 08-21 Oral, ity of (MILK OF 02:55: QDAILYPRN, [place] MAGNESIA) 41 Starting Medica l 400 mg/5 mL [facility] Branch suspension 08/21/19 at 30 mL 2155, Until Discontinu ed, Routine, Constipati on ibuprofen 2020-0 Yes 600mg 600 mg, Univ ers (IBU) - Oral, ity of tablet 600 02:55: Q6HPRN, [place] mg 41 Starting Medical Mon Branch 08/21/19 at 2155, Until Discontinu ed, Routine, Pain (scale 4-6) diphenhydrA 2020-0 Yes 25mg 25 mg, Univ ers MINE - Oral, ity of (BENADRYL) 02:55: Q6HPRN, [place] tablet 25 41 Starting Medica l mg Mon Branch 08/21/19 at 2155, Until Discontinu ed, Routine, Sleep, Itching diphenhydrA 2020-0 Yes 25mg 25 mg, IV U nivers MINE-0.9 % 08-21 Piggyback, ity of sod.chlr 02:55: Administer [place] (BENADRYL) 41 over 30 Medica l 25 mg/50 mL Minutes, Bran ch piggyback Q6HPRN, 25 mg Starting 08/21/19 at 2155, Until Discontinu ed, Routine, Itching docusate 2020-0 Yes 240mg 240 mg, Unive rs calcium 08-21 Oral, ity of (SURFAK) 02:55: QDAILYPRN, [place] capsule 240 41 Starting Medi kyra mg Mon Branch 08/21/19 at 2155, Until Discontinu ed, Routine, Constipati on magnesium 2020-0 Yes 30mL 30 mL, Univer s hydroxide 08-21 Oral, ity of (MILK OF 02:55: QDAILYPRN, [place] MAGNESIA) 41 Starting Medica l 400 mg/5 mL Mon Branch suspension 08/21/19 at 30 mL 2155, Until Discontinu ed, Routine, Constipati on benzocaine- 2020-0 Yes Topical, [facility] menthol - PRN, ity of (DERMOPLAST 02:55: Starting [place] ) 20-0.5 % 41 Mon Medical topical 08/21/19 at Branch spray 2155, Until Discontinu ed, Routine, Perineum discomfort acetaminoph 2020-0 Yes 650mg 650 mg, Un kitty en 08-21 Oral, ity of (TYLENOL) 02:55: Q6HPRN, [place] tablet 650 40 Starting Medic al mg [facility] Branch 08/21/19 at 2155, Until Discontinu ed, Routine, Pain (scale 1-3) nalbuphine 2019-0 Yes 5mg 5 mg, Univer s (NUBAIN) 08-21 Intravenou ity o f injection 5 00:48: s, PRN, 1 [place] mg 59 dose, Medical Starting Branch [facility] 08/21/19 at 1948, Until Discontinu ed, Routine, Itching, PACU naloxone 2019-0 2020- No .4mg 0.4 mg, Unive rs (NARCAN) 08-2123 Slow IV ity of injection 00:48: 00:47 Push, PRN [place] 0.4 mg 59 :59 - SEE Medical INSTRUCTIO Branch NS, Starting Wed08/21/19 at 1948, Until Wed08/23/19 at 1947, Routine, Analgesia Recovery, PACU ketorolac 2019-0 2020- No 30mg 30 mg, Unive rs (TORADOL) 08-21 Slow IV ity of injection 00:48: 01:41 Push, PRN, [place] 30 mg 59 :00 1 dose, Medical Starting Branch [facility] 08/21/19 at 1948, Until Discontinu ed, Routine, Pain (scale 7-10), PAC[facility] : KRISTIN RAMOS HYDROcodone 2019-0 Yes 2{tbl} 2 tablet, Univers -acetaminop 4-21 Oral, ity of hen (NORCO 00:26: Q6HPRN, [place] 5) 5-325 mg 16 Starting Medi kyra tablet 2 Mon Branch tablet 08/21/19 at 1926, Until Discontinu ed, Routine, Pain (scale 7-10) HYDROcodone 2020-0 Yes 1{tbl} 1 tablet, Univers -acetaminop 4-21 Oral, ity of hen (NORCO 00:26: Q6HPRN, [place] 5) 5-325 mg 15 Starting Medi kyra tablet 1 Mon Branch tablet 08/21/19 at 1926, Until Discontinu ed, Routine, Pain (scale 4-6) 2020-0 Yes [id number] 1{tbl} Take 1 [facility] vitamin 4-21 tablet by ity of w/FA tablet 00:00: mouth [place] 00 daily. Medical Branch docusate 2020-0 Yes [id number] 240mg Take 1 U nivers calcium 240 4-21 capsule by it y of mg capsule 00:00: mouth once [place] 00 daily as Medical needed for Branch Constipati on. ferrous 2020-0 Yes [id number] 325mg Take 1 Un kitty sulfate 325 4-21 tablet by ity of mg (65 mg 00:00: mouth 2 [place] iron) 00 (two) Medical tablet times Branch daily. ibuprofen 2020-0 Yes [id number] 600mg Take 1 [facility] 600 mg 4-21 tablet by ity of tablet 00:00: mouth [place] 00 every 6 Medical (six) Branch hours as needed (Pain). Take with food or milk. 2020-0 Yes [id number] 1{tbl} Take 1 [facility] vitamin 4-21 tablet by ity of w/FA tablet 00:00: mouth [place] 00 daily. Medical Branch docusate 2020-0 Yes [id number] 240mg Take 1 U nivers calcium 240 4-21 capsule by it y of mg capsule 00:00: mouth once [place] 00 daily as Medical needed for Branch Constipati on. ferrous 2020-0 Yes [id number] 325mg Take 1 [facility] sulfate 325 4-21 tablet by ity of mg (65 mg 00:00: mouth 2 [place] iron) 00 (two) Medical tablet times Branch daily. ibuprofen 2020-0 Yes [id number] 600mg Take 1 [facility] 600 mg 4-21 tablet by ity of tablet 00:00: mouth [place] 00 every 6 Medical (six) Branch hours as needed (Pain). Take with food or milk. 2020-0 Yes [id number] 1{tbl} Take 1 [facility] vitamin 4-21 tablet by ity of w/FA tablet 00:00: mouth [place] 00 daily. Medical Branch docusate 2020-0 Yes [id number] 240mg Take 1 U nivers calcium 240 4-21 capsule by it y of mg capsule 00:00: mouth once [place] 00 daily as Medical needed for Branch Constipati on. ferrous 2020-0 Yes [id number] 325mg Take 1 [place] sulfate 325 4-21 tablet by ity of mg (65 mg 00:00: mouth 2 [place] iron) 00 (two) Medical tablet times Branch daily. ibuprofen 2020-0 Yes [id number] 600mg Take 1 [facility] 600 mg 4-21 tablet by ity of tablet 00:00: mouth [place] 00 every 6 Medical (six) Branch hours as needed (Pain). Take with food or milk. 2020-0 Yes [id number] 1{tbl} Take 1 [facility] vitamin 4-21 tablet by ity of w/FA tablet 00:00: mouth [place] 00 daily. Medical Branch docusate 2020-0 Yes [id number] 240mg Take 1 U nivers calcium 240 4-21 capsule by it y of mg capsule 00:00: mouth once [place] 00 daily as Medical needed for Branch Constipati on. ferrous 2020-0 Yes [id number] 325mg Take 1 [facility] [place] sulfate 325 4-21 tablet by ity of mg (65 mg 00:00: mouth 2 [place] iron) 00 (two) Medical tablet times Branch daily. ibuprofen 2020-0 Yes [id number] 600mg Take 1 [facility] 600 mg 4-21 tablet by ity of tablet 00:00: mouth [place] 00 every 6 Medical (six) Branch hours as needed (Pain). Take with food or milk. 2020-0 Yes [id number] 1{tbl} Take 1 [facility] vitamin 4-21 tablet by ity of w/FA tablet 00:00: mouth [place] 00 daily. Medical Branch docusate 2020-0 Yes [id number] 240mg Take 1 U nivers calcium 240 4-21 capsule by it y of mg capsule 00:00: mouth once [place] 00 daily as Medical needed for Branch Constipati on. ferrous 2020-0 Yes [id number] 325mg Take 1 [place] sulfate 325 4-21 tablet by ity of mg (65 mg 00:00: mouth 2 [place] iron) 00 (two) Medical tablet times Branch daily. ibuprofen 2020-0 Yes [id number] 600mg Take 1 [facility] 600 mg 4-21 tablet by ity of tablet 00:00: mouth [place] 00 every 6 Medical (six) Branch hours as needed (Pain). Take with food or milk. 2020-0 Yes [id number] 1{tbl} Take 1 [facility] vitamin 4-21 tablet by ity of w/FA tablet 00:00: mouth [place] 00 daily. Medical Branch docusate 2020-0 Yes [id number] 240mg Take 1 U nivers calcium 240 4-21 capsule by it y of mg capsule 00:00: mouth once [place] 00 daily as Medical needed for Branch Constipati on. ferrous 2020-0 Yes [id number] 325mg Take 1 [place] sulfate 325 4-21 tablet by ity of mg (65 mg 00:00: mouth 2 [place] iron) 00 (two) Medical tablet times Branch daily. ibuprofen 2020-0 Yes [id number] 600mg Take 1 [facility] 600 mg 4-21 tablet by ity of tablet 00:00: mouth [place] 00 every 6 Medical (six) Branch hours as needed (Pain). Take with food or milk. 2020-0 Yes [id number] 1{tbl} Take 1 [facility] vitamin 4-21 tablet by ity of w/FA tablet 00:00: mouth [place] 00 daily. Medical Branch docusate 2020-0 Yes [id number] 240mg Take 1 U nivers calcium 240 4-21 capsule by it y of mg capsule 00:00: mouth once [place] 00 daily as Medical needed for Branch Constipati on. ferrous 2020-0 Yes [id number] 325mg Take 1 [place] sulfate 325 4-21 tablet by ity of mg (65 mg 00:00: mouth 2 [place] iron) 00 (two) Medical tablet times Branch daily. ibuprofen 2020-0 Yes [id number] 600mg Take 1 [facility] 600 mg 4-21 tablet by ity of tablet 00:00: mouth [place] 00 every 6 Medical (six) Branch hours as needed (Pain). Take with food or milk. 2020-0 Yes [id number] 1{tbl} Take 1 [facility] vitamin 4-21 tablet by ity of w/FA tablet 00:00: mouth [place] 00 daily. Medical Branch docusate 2020-0 Yes [id number] 240mg Take 1 U nivers calcium 240 4-21 capsule by it y of mg capsule 00:00: mouth once [place] 00 daily as Medical needed for Branch Constipati on. ferrous 2020-0 Yes [id number] 325mg Take 1 [place] sulfate 325 4-21 tablet by ity of mg (65 mg 00:00: mouth 2 [place] iron) 00 (two) Medical tablet times Branch daily. ibuprofen 2020-0 Yes [id number] 600mg Take 1 [facility] 600 mg 4-21 tablet by ity of tablet 00:00: mouth [place] 00 every 6 Medical (six) Branch hours as needed (Pain). Take with food or milk. 2020-0 Yes [id number] 1{tbl} Take 1 [facility] vitamin 4-21 tablet by ity of w/FA tablet 00:00: mouth [place] 00 daily. Medical Branch docusate 2020-0 Yes [id number] 240mg Take 1 U nivers calcium 240 4-21 capsule by it y of mg capsule 00:00: mouth once [place] 00 daily as Medical needed for Branch Constipati on. ferrous 2020-0 Yes [id number] 325mg Take 1 [place] sulfate 325 4-21 tablet by ity of mg (65 mg 00:00: mouth 2 [place] iron) 00 (two) Medical tablet times Branch daily. ibuprofen 2020-0 Yes [id number] 600mg Take 1 [facility] 600 mg 4-21 tablet by ity of tablet 00:00: mouth [place] 00 every 6 Medical (six) Branch hours as needed (Pain). Take with food or milk. 2020-0 Yes [id number] 1{tbl} Take 1 [facility] vitamin 4-21 tablet by ity of w/FA tablet 00:00: mouth [place] 00 daily. Medical Branch docusate 2020-0 Yes [id number] 240mg Take 1 U nivers calcium 240 4-21 capsule by it y of mg capsule 00:00: mouth once [place] 00 daily as Medical needed for Branch Constipati on. ferrous 2020-0 Yes [id number] 325mg Take 1 [place] sulfate 325 4-21 tablet by ity of mg (65 mg 00:00: mouth 2 [place] iron) 00 (two) Medical tablet times Branch daily. ibuprofen 2020-0 Yes [id number] 600mg Take 1 [facility] 600 mg 4-21 tablet by ity of tablet 00:00: mouth [place] 00 every 6 Medical (six) Branch hours as needed (Pain). Take with food or milk. 2020-0 Yes [id number] 1{tbl} Take 1 [facility] vitamin 4-21 tablet by ity of w/FA tablet 00:00: mouth [place] 00 daily. Medical Branch docusate 2020-0 Yes [id number] 240mg Take 1 U nivers calcium 240 4-21 capsule by it y of mg capsule 00:00: mouth once [place] 00 daily as Medical needed for Branch Constipati on. ferrous 2020-0 Yes [id number] 325mg Take 1 [place] sulfate 325 4-21 tablet by ity of mg (65 mg 00:00: mouth 2 [place] iron) 00 (two) Medical tablet times Branch daily. ibuprofen 2020-0 Yes [id number] 600mg Take 1 [facility] 600 mg 4-21 tablet by ity of tablet 00:00: mouth [place] 00 every 6 Medical (six) Branch hours as needed (Pain). Take with food or milk. 2020-0 Yes [id number] 1{tbl} Take 1 [facility] vitamin 4-21 tablet by ity of w/FA tablet 00:00: mouth [place] 00 daily. Medical Branch docusate 2020-0 Yes [id number] 240mg Take 1 U nivers calcium 240 4-21 capsule by it y of mg capsule 00:00: mouth once [place] 00 daily as Medical needed for Branch Constipati on. ferrous 2020-0 Yes [id number] 325mg Take 1 [place] sulfate 325 4-21 tablet by ity of mg (65 mg 00:00: mouth 2 [place] iron) 00 (two) Medical tablet times Branch daily. ibuprofen 2020-0 Yes [id number] 600mg Take 1 [facility] 600 mg 4-21 tablet by ity of tablet 00:00: mouth [place] 00 every 6 Medical (six) Branch hours as needed (Pain). Take with food or milk. 2020-0 Yes [id number] 1{tbl} Take 1 [facility] vitamin 4-21 tablet by ity of w/FA tablet 00:00: mouth [place] 00 daily. Medical Branch docusate 2020-0 Yes [id number] 240mg Take 1 U nivers calcium 240 4-21 capsule by it y of mg capsule 00:00: mouth once [place] 00 daily as Medical needed for Branch Constipati on. ferrous 2020-0 Yes [id number] 325mg Take 1 [place] sulfate 325 4-21 tablet by ity of mg (65 mg 00:00: mouth 2 [place] iron) 00 (two) Medical tablet times Branch daily. ibuprofen 2020-0 Yes [id number] 600mg Take 1 [facility] 600 mg 4-21 tablet by ity of tablet 00:00: mouth [place] 00 every 6 Medical (six) Branch hours as needed (Pain). Take with food or milk. 2020-0 Yes [id number] 1{tbl} Take 1 [facility] vitamin 4-21 tablet by ity of w/FA tablet 00:00: mouth [place] 00 daily. Medical Branch docusate 2020-0 Yes [id number] 240mg Take 1 U nivers calcium 240 4-21 capsule by it y of mg capsule 00:00: mouth once [place] 00 daily as Medical needed for Branch Constipati on. ferrous 2020-0 Yes [id number] 325mg Take 1 [facility] sulfate 325 4-21 tablet by ity of mg (65 mg 00:00: mouth 2 [place] iron) 00 (two) Medical tablet times Branch daily. ibuprofen 2020-0 Yes [id number] 600mg Take 1 [facility] 600 mg 4-21 tablet by ity of tablet 00:00: mouth [place] 00 every 6 Medical (six) Branch hours as needed (Pain). Take with food or milk. 2020-0 Yes [id number] 1{tbl} Take 1 [facility] vitamin 4-21 tablet by ity of w/FA tablet 00:00: mouth [place] 00 daily. Medical Branch docusate 2020-0 Yes [id number] 240mg Take 1 U nivers calcium 240 4-21 capsule by it y of mg capsule 00:00: mouth once [place] 00 daily as Medical needed for Branch Constipati on. ferrous 2020-0 Yes [id number] 325mg Take 1 [facility] [place] sulfate 325 4-21 tablet by ity of mg (65 mg 00:00: mouth 2 [place] iron) 00 (two) Medical tablet times Branch daily. ibuprofen 2020-0 Yes [id number] 600mg Take 1 [facility] 600 mg 4-21 tablet by ity of tablet 00:00: mouth [place] 00 every 6 Medical (six) Branch hours as needed (Pain). Take with food or milk. 2020-0 Yes [id number] 1{tbl} Take 1 [facility] vitamin 4-21 tablet by ity of w/FA tablet 00:00: mouth [place] 00 daily. Medical Branch docusate 2020-0 Yes [id number] 240mg Take 1 U nivers calcium 240 4-21 capsule by it y of mg capsule 00:00: mouth once [place] 00 daily as Medical needed for Branch Constipati on. ferrous 2020-0 Yes [id number] 325mg Take 1 [facility] [place] sulfate 325 4-21 tablet by ity of mg (65 mg 00:00: mouth 2 [place] iron) 00 (two) Medical tablet times Branch daily. ibuprofen 2020-0 Yes [id number] 600mg Take 1 [facility] 600 mg 4-21 tablet by ity of tablet 00:00: mouth [place] 00 every 6 Medical (six) Branch hours as needed (Pain). Take with food or milk. 2020-0 Yes [id number] 1{tbl} Take 1 [facility] vitamin 4-21 tablet by ity of w/FA tablet 00:00: mouth [place] 00 daily. Medical Branch docusate 2020-0 Yes [id number] 240mg Take 1 [facility] calcium 240 4-21 capsule by it y of mg capsule 00:00: mouth once [place] 00 daily as Medical needed for Branch Constipati on. ferrous 2020-0 Yes [id number] 325mg Take 1 Un kitty sulfate 325 4-21 tablet by ity of mg (65 mg 00:00: mouth 2 [place] iron) 00 (two) Medical tablet times Branch daily. ibuprofen 2020-0 Yes [id number] 600mg Take 1 [facility] 600 mg 4-21 tablet by ity of tablet 00:00: mouth [place] 00 every 6 Medical (six) Branch hours as needed (Pain). Take with food or milk. 2020-0 Yes [id number] 1{tbl} Take 1 [facility] vitamin 4-21 tablet by ity of w/FA tablet 00:00: mouth [place] 00 daily. Medical Branch docusate 2020-0 Yes [id number] 240mg Take 1 [facility] nivers calcium 240 4-21 capsule by it y of mg capsule 00:00: mouth once [place] 00 daily as Medical needed for Branch Constipati on. ferrous 2020-0 Yes [id number] 325mg Take 1 Un kit[place] sulfate 325 4-21 tablet by ity of mg (65 mg 00:00: mouth 2 [place] iron) 00 (two) Medical tablet times Branch daily. ibuprofen 2020-0 Yes [id number] 600mg Take 1 [facility] 600 mg 4-21 tablet by ity of tablet 00:00: mouth [place] 00 every 6 Medical (six) Branch hours as needed (Pain). Take with food or milk. 2020-0 Yes [id number] 1{tbl} Take 1 [facility] vitamin 4-21 tablet by ity of w/FA tablet 00:00: mouth [place] 00 daily. Medical Branch docusate 2020-0 Yes [id number] 240mg Take 1 [facility] nivers calcium 240 4-21 capsule by it y of mg capsule 00:00: mouth once [place] 00 daily as Medical needed for Branch Constipati on. ferrous 2020-0 Yes [id number] 325mg Take 1 Un [place] sulfate 325 4-21 tablet by ity of mg (65 mg 00:00: mouth 2 [place] iron) 00 (two) Medical tablet times Branch daily. ibuprofen 2020-0 Yes [id number] 600mg Take 1 [facility] 600 mg 4-21 tablet by ity of tablet 00:00: mouth [place] 00 every 6 Medical (six) Branch hours as needed (Pain). Take with food or milk. 2020-0 Yes [id number] 1{tbl} Take 1 [facility] vitamin 4-21 tablet by ity of w/FA tablet 00:00: mouth [place] 00 daily. Medical Branch docusate 2020-0 Yes [id number] 240mg Take 1 [facility] nivers calcium 240 4-21 capsule by it y of mg capsule 00:00: mouth once [place] 00 daily as Medical needed for Branch Constipati on. ferrous 2020-0 Yes [id number] 325mg Take 1 [facility] [place] sulfate 325 4-21 tablet by ity of mg (65 mg 00:00: mouth 2 [place] iron) 00 (two) Medical tablet times Branch daily. ibuprofen 2020-0 Yes [id number] 600mg Take 1 [facility] 600 mg 4-21 tablet by ity of tablet 00:00: mouth [place] 00 every 6 Medical (six) Branch hours as needed (Pain). Take with food or milk. 2020-0 Yes [id number] 1{tbl} Take 1 [facility] vitamin 4-21 tablet by ity of w/FA tablet 00:00: mouth [place] 00 daily. Medical Branch docusate 2020-0 Yes [id number] 240mg Take 1 [facility] nivers calcium 240 4-21 capsule by it y of mg capsule 00:00: mouth once [place] 00 daily as Medical needed for Branch Constipati on. ferrous 2020-0 Yes [id number] 325mg Take 1 [facility] [place] sulfate 325 4-21 tablet by ity of mg (65 mg 00:00: mouth 2 [place] iron) 00 (two) Medical tablet times Branch daily. ibuprofen 2020-0 Yes [id number] 600mg Take 1 [facility] 600 mg 4-21 tablet by ity of tablet 00:00: mouth [place] 00 every 6 Medical (six) Branch hours as needed (Pain). Take with food or milk. 2020-0 Yes [id number] 1{tbl} Take 1 [facility] vitamin 4-21 tablet by ity of w/FA tablet 00:00: mouth [place] 00 daily. Medical Branch docusate 2020-0 Yes [id number] 240mg Take 1 [facility] nivers calcium 240 4-21 capsule by it y of mg capsule 00:00: mouth once [place] 00 daily as Medical needed for Branch Constipati on. ferrous 2020-0 Yes [id number] 325mg Take 1 [facility] [place] sulfate 325 4-21 tablet by ity of mg (65 mg 00:00: mouth 2 [place] iron) 00 (two) Medical tablet times Branch daily. ibuprofen 2020-0 Yes [id number] 600mg Take 1 [facility] 600 mg 4-21 tablet by ity of tablet 00:00: mouth [place] 00 every 6 Medical (six) Branch hours as needed (Pain). Take with food or milk. 2020-0 Yes [id number] 1{tbl} Take 1 [facility] vitamin 4-21 tablet by ity of w/FA tablet 00:00: mouth [place] 00 daily. Medical Branch docusate 2020-0 Yes [id number] 240mg Take 1 [facility] nivers calcium 240 4-21 capsule by it y of mg capsule 00:00: mouth once [place] 00 daily as Medical needed for Branch Constipati on. ferrous 2020-0 Yes [id number] 325mg Take 1 [facility] [place] sulfate 325 4-21 tablet by ity of mg (65 mg 00:00: mouth 2 [place] iron) 00 (two) Medical tablet times Branch daily. ibuprofen 2020-0 Yes [id number] 600mg Take 1 [facility] 600 mg 4-21 tablet by ity of tablet 00:00: mouth [place] 00 every 6 Medical (six) Branch hours as needed (Pain). Take with food or milk. 2020-0 Yes [id number] 1{tbl} Take 1 [facility] vitamin 4-21 tablet by ity of w/FA tablet 00:00: mouth [place] 00 daily. Medical Branch docusate 2020-0 Yes [id number] 240mg Take 1 [facility] nivers calcium 240 4-21 capsule by it y of mg capsule 00:00: mouth once [place] 00 daily as Medical needed for Branch Constipati on. ferrous 2020-0 Yes [id number] 325mg Take 1 [facility] [place] sulfate 325 4-21 tablet by ity of mg (65 mg 00:00: mouth 2 [place] iron) 00 (two) Medical tablet times Branch daily. ibuprofen 2020-0 Yes [id number] 600mg Take 1 [facility] 600 mg 4-21 tablet by ity of tablet 00:00: mouth [place] 00 every 6 Medical (six) Branch hours as needed (Pain). Take with food or milk. 2020-0 Yes [id number] 1{tbl} Take 1 [facility] vitamin 4-21 tablet by ity of w/FA tablet 00:00: mouth [place] 00 daily. Medical Branch docusate 2020-0 Yes [id number] 240mg Take 1 [facility] nivers calcium 240 4-21 capsule by it y of mg capsule 00:00: mouth once [place] 00 daily as Medical needed for Branch Constipati on. ferrous 2020-0 Yes [id number] 325mg Take 1 [facility] kit[place] sulfate 325 4-21 tablet by ity of mg (65 mg 00:00: mouth 2 [place] iron) 00 (two) Medical tablet times Branch daily. ibuprofen 2020-0 Yes [id number] 600mg Take 1 [facility] 600 mg 4-21 tablet by ity of tablet 00:00: mouth [place] 00 every 6 Medical (six) Branch hours as needed (Pain). Take with food or milk. 2020-0 Yes [id number] 1{tbl} Take 1 [facility] vitamin 4-21 tablet by ity of w/FA tablet 00:00: mouth [place] 00 daily. Medical Branch docusate 2020-0 Yes [id number] 240mg Take 1 [facility] nivers calcium 240 4-21 capsule by it y of mg capsule 00:00: mouth once [place] 00 daily as Medical needed for Branch Constipati on. ferrous 2020-0 Yes [id number] 325mg Take 1 [facility] [place] sulfate 325 4-21 tablet by ity of mg (65 mg 00:00: mouth 2 [place] iron) 00 (two) Medical tablet times Branch daily. ibuprofen 2020-0 Yes [id number] 600mg Take 1 [facility] 600 mg 4-21 tablet by ity of tablet 00:00: mouth [place] 00 every 6 Medical (six) Branch hours as needed (Pain). Take with food or milk. 2020-0 Yes [id number] 1{tbl} Take 1 [facility] vitamin 4-21 tablet by ity of w/FA tablet 00:00: mouth [place] 00 daily. Medical Branch docusate 2020-0 Yes [id number] 240mg Take 1 [facility] nivers calcium 240 4-21 capsule by it y of mg capsule 00:00: mouth once [place] 00 daily as Medical needed for Branch Constipati on. ferrous 2020-0 Yes [id number] 325mg Take 1 [facility] [place] sulfate 325 4-21 tablet by ity of mg (65 mg 00:00: mouth 2 [place] iron) 00 (two) Medical tablet times Branch daily. ibuprofen 2020-0 Yes [id number] 600mg Take 1 [facility] 600 mg 4-21 tablet by ity of tablet 00:00: mouth [place] 00 every 6 Medical (six) Branch hours as needed (Pain). Take with food or milk. 2020-0 Yes [id number] 1{tbl} Take 1 [facility] vitamin 4-21 tablet by ity of w/FA tablet 00:00: mouth [place] 00 daily. Medical Branch docusate 2020-0 Yes [id number] 240mg Take 1 [facility] nivers calcium 240 4-21 capsule by it y of mg capsule 00:00: mouth once [place] 00 daily as Medical needed for Branch Constipati on. ferrous 2020-0 Yes [id number] 325mg Take 1 [facility] [place] sulfate 325 4-21 tablet by ity of mg (65 mg 00:00: mouth 2 [place] iron) 00 (two) Medical tablet times Branch daily. ibuprofen 2020-0 Yes [id number] 600mg Take 1 [facility] 600 mg 4-21 tablet by ity of tablet 00:00: mouth [place] 00 every 6 Medical (six) Branch hours as needed (Pain). Take with food or milk. 2020-0 Yes [id number] 1{tbl} Take 1 [facility] vitamin 4-21 tablet by ity of w/FA tablet 00:00: mouth [place] 00 daily. Medical Branch docusate 2020-0 Yes [id number] 240mg Take 1 [facility] nivers calcium 240 4-21 capsule by it y of mg capsule 00:00: mouth once [place] 00 daily as Medical needed for Branch Constipati on. ferrous 2020-0 Yes [id number] 325mg Take 1 [facility] [place] sulfate 325 4-21 tablet by ity of mg (65 mg 00:00: mouth 2 [place] iron) 00 (two) Medical tablet times Branch daily. ibuprofen 2020-0 Yes [id number] 600mg Take 1 [facility] 600 mg 4-21 tablet by ity of tablet 00:00: mouth [place] 00 every 6 Medical (six) Branch hours as needed (Pain). Take with food or milk. 2020-0 Yes [id number] 1{tbl} Take 1 [facility] vitamin 4-21 tablet by ity of w/FA tablet 00:00: mouth [place] 00 daily. Medical Branch docusate 2020-0 Yes [id number] 240mg Take 1 [facility] nivers calcium 240 4-21 capsule by it y of mg capsule 00:00: mouth once [place] 00 daily as Medical needed for Branch Constipati on. ferrous 2020-0 Yes [id number] 325mg Take 1 [facility] [place] sulfate 325 4-21 tablet by ity of mg (65 mg 00:00: mouth 2 [place] iron) 00 (two) Medical tablet times Branch daily. ibuprofen 2020-0 Yes [id number] 600mg Take 1 [facility] 600 mg 4-21 tablet by ity of tablet 00:00: mouth [place] 00 every 6 Medical (six) Branch hours as needed (Pain). Take with food or milk. 2020-0 Yes [id number] 1{tbl} Take 1 [facility] vitamin 4-21 tablet by ity of w/FA tablet 00:00: mouth [place] 00 daily. Medical Branch docusate 2020-0 Yes [id number] 240mg Take 1 [facility] nivers calcium 240 4-21 capsule by it y of mg capsule 00:00: mouth once [place] 00 daily as Medical needed for Branch Constipati on. ferrous 2020-0 Yes [id number] 325mg Take 1 Un [place] sulfate 325 4-21 tablet by ity of mg (65 mg 00:00: mouth 2 [place] iron) 00 (two) Medical tablet times Branch daily. ibuprofen 2020-0 Yes [id number] 600mg Take 1 [facility] 600 mg 4-21 tablet by ity of tablet 00:00: mouth [place] 00 every 6 Medical (six) Branch hours as needed (Pain). Take with food or milk. 2020-0 Yes [id number] 1{tbl} Take 1 [facility] vitamin 4-21 tablet by ity of w/FA tablet 00:00: mouth [place] 00 daily. Medical Branch docusate 2020-0 Yes [id number] 240mg Take 1 [facility] nivers calcium 240 4-21 capsule by it y of mg capsule 00:00: mouth once [place] 00 daily as Medical needed for Branch Constipati on. ferrous 2020-0 Yes [id number] 325mg Take 1 [facility] [place] sulfate 325 4-21 tablet by ity of mg (65 mg 00:00: mouth 2 [place] iron) 00 (two) Medical tablet times Branch daily. ibuprofen 2020-0 Yes [id number] 600mg Take 1 [facility] 600 mg 4-21 tablet by ity of tablet 00:00: mouth [place] 00 every 6 Medical (six) Branch hours as needed (Pain). Take with food or milk. 2020-0 Yes [id number] 1{tbl} Take 1 [facility] vitamin 4-21 tablet by ity of w/FA tablet 00:00: mouth [place] 00 daily. Medical Branch docusate 2020-0 Yes [id number] 240mg Take 1 [facility] nivers calcium 240 4-21 capsule by it y of mg capsule 00:00: mouth once [place] 00 daily as Medical needed for Branch Constipati on. ferrous 2020-0 Yes [id number] 325mg Take 1 [facility] [place] sulfate 325 4-21 tablet by ity of mg (65 mg 00:00: mouth 2 [place] iron) 00 (two) Medical tablet times Branch daily. ibuprofen 2020-0 Yes [id number] 600mg Take 1 [facility] 600 mg 4-21 tablet by ity of tablet 00:00: mouth [place] 00 every 6 Medical (six) Branch hours as needed (Pain). Take with food or milk. 2020-0 Yes [id number] 1{tbl} Take 1 [facility] vitamin 4-21 tablet by ity of w/FA tablet 00:00: mouth [place] 00 daily. Medical Branch docusate 2020-0 Yes [id number] 240mg Take 1 [facility] nivers calcium 240 4-21 capsule by it y of mg capsule 00:00: mouth once [place] 00 daily as Medical needed for Branch Constipati on. ferrous 2020-0 Yes [id number] 325mg Take 1 Un [place] sulfate 325 4-21 tablet by ity of mg (65 mg 00:00: mouth 2 [place] iron) 00 (two) Medical tablet times Branch daily. ibuprofen 2020-0 Yes [id number] 600mg Take 1 [facility] 600 mg 4-21 tablet by ity of tablet 00:00: mouth [place] 00 every 6 Medical (six) Branch hours as needed (Pain). Take with food or milk. 2020-0 Yes [id number] 1{tbl} Take 1 [facility] vitamin 4-21 tablet by ity of w/FA tablet 00:00: mouth [place] 00 daily. Medical Branch docusate 2020-0 Yes [id number] 240mg Take 1 [facility] n[facility] calcium 240 4-21 capsule by it y of mg capsule 00:00: mouth once [place] 00 daily as Medical needed for Branch Constipati on. ferrous 2020-0 Yes [id number] 325mg Take 1 Un [place] sulfate 325 4-21 tablet by ity of mg (65 mg 00:00: mouth 2 [place] iron) 00 (two) Medical tablet times Branch daily. ibuprofen 2020-0 Yes [id number] 600mg Take 1 [facility] 600 mg 4-21 tablet by ity of tablet 00:00: mouth [place] 00 every 6 Medical (six) Branch hours as needed (Pain). Take with food or milk. 2020-0 Yes [id number] 1{tbl} Take 1 [facility] vitamin 4-21 tablet by ity of w/FA tablet 00:00: mouth [place] 00 daily. Medical Branch docusate 2020-0 Yes [id number] 240mg Take 1 [facility] n[facility] calcium 240 4-21 capsule by it y of mg capsule 00:00: mouth once [place] 00 daily as Medical needed for Branch Constipati on. ferrous 2020-0 Yes [id number] 325mg Take 1 [facility] [place] sulfate 325 4-21 tablet by ity of mg (65 mg 00:00: mouth 2 [place] iron) 00 (two) Medical tablet times Branch daily. ibuprofen 2020-0 Yes [id number] 600mg Take 1 [facility] 600 mg 4-21 tablet by ity of tablet 00:00: mouth [place] 00 every 6 Medical (six) Branch hours as needed (Pain). Take with food or milk. 2020-0 Yes [id number] 1{tbl} Take 1 [facility] vitamin 4-21 tablet by ity of w/FA tablet 00:00: mouth [place] 00 daily. Medical Branch docusate 2020-0 Yes [id number] 240mg Take 1 [facility] nivers calcium 240 4-21 capsule by it y of mg capsule 00:00: mouth once [place] 00 daily as Medical needed for Branch Constipati on. ferrous 2020-0 Yes [id number] 325mg Take 1 [facility] [place] sulfate 325 4-21 tablet by ity of mg (65 mg 00:00: mouth 2 [place] iron) 00 (two) Medical tablet times Branch daily. ibuprofen 2020-0 Yes [id number] 600mg Take 1 [facility] 600 mg 4-21 tablet by ity of tablet 00:00: mouth [place] 00 every 6 Medical (six) Branch hours as needed (Pain). Take with food or milk. 2020-0 Yes [id number] 1{tbl} Take 1 [facility] vitamin 4-21 tablet by ity of w/FA tablet 00:00: mouth [place] 00 daily. Medical Branch docusate 2020-0 Yes [id number] 240mg Take 1 [facility] nivers calcium 240 4-21 capsule by it y of mg capsule 00:00: mouth once [place] 00 daily as Medical needed for Branch Constipati on. ferrous Yes [id number] 325mg Take 1 Un [place] sulfate 325 4-21 tablet by ity of mg (65 mg 00:00: mouth 2 [place] iron) 00 (two) Medical tablet times Branch daily. ibuprofen Yes [id number] 600mg Take 1 [facility] 600 mg 4-21 tablet by ity of tablet 00:00: mouth [place] 00 every 6 Medical (six) Branch hours as needed (Pain). Take with food or milk. HYDROcodone 2019- No [id number] 1{tbl} Take 1 [facility] -acetaminop 4-21 04-29 tablet by it y of hen 5-325 00:00: 04:59 mouth [place] mg tablet 00 :00 every 6 Medical (six) Branch hours as needed (for pain) for up to 7 days. Do not exceed 3 grams of acetaminop hen in 24 hours. HYDROcodone 2019- No [id number] 1{tbl} Take 1 [facility] -acetaminop 4-21 04-29 tablet by it y of hen 5-325 00:00: 04:59 mouth [place] mg tablet 00 :00 every 6 Medical (six) Branch hours as needed (for pain) for up to 7 days. Do not exceed 3 grams of acetaminop hen in 24 hours. HYDROcodone 2019- No [id number] 1{tbl} Take 1 [facility] -acetaminop 4-21 04-29 tablet by it y of hen 5-325 00:00: 04:59 mouth [place] mg tablet 00 :00 every 6 Medical (six) Branch hours as needed (for pain) for up to 7 days. Do not exceed 3 grams of acetaminop hen in 24 hours. HYDROcodone 2019- No [id number] 1{tbl} Take 1 [facility] -acetaminop 4-21 04-29 tablet by it y of hen 5-325 00:00: 04:59 mouth [place] mg tablet 00 :00 every 6 Medical (six) Branch hours as needed (for pain) for up to 7 days. Do not exceed 3 grams of acetaminop hen in 24 hours. HYDROcodone 2019- No [id number] 1{tbl} Take 1 [facility] -acetaminop 4-21 04-29 tablet by it y of hen 5-325 00:00: 04:59 mouth [place] mg tablet 00 :00 every 6 Medical (six) Branch hours as needed (for pain) for up to 7 days. Do not exceed 3 grams of acetaminop hen in 24 hours. HYDROcodone 2020- No [id number] 1{tbl} Take 1 [facility] -acetaminop 4-21 04-29 tablet by it y of hen 5-325 00:00: 04:59 mouth [place] mg tablet 00 :00 every 6 Medical (six) Branch hours as needed (for pain) for up to 7 days. Do not exceed 3 grams of acetaminop hen in 24 hours. HYDROcodone 2019- 2020- No [id number] 1{tbl} Take 1 [facility] -acetaminop 4-21 04-29 tablet by it y of hen 5-325 00:00: 04:59 mouth [place] mg tablet 00 :00 every 6 Medical (six) Branch hours as needed (for pain) for up to 7 days. Do not exceed 3 grams of acetaminop hen in 24 hours. HYDROcodone 2019- 2020- No [id number] 1{tbl} Take 1 [facility] -acetaminop 4-21 04-29 tablet by it y of hen 5-325 00:00: 04:59 mouth [place] mg tablet 00 :00 every 6 Medical (six) Branch hours as needed (for pain) for up to 7 days. Do not exceed 3 grams of acetaminop hen in 24 hours. oxytocin Yes at 125 [facility] (PITOCIN) 4-20 mL/hr, IV ity o f 40 Units in 21:00: Infusion, [place] lactated 00 CONTINUOUS Medic al ringers , Starting Branch 1,000 mL IV Mon infusion 08/21/19 at 1600, Until Discontinu ed, Routine lactated 2019- 2020- No 500mL at 999 Unive rs ringers IV - 04-20 mL/hr, 500 it y of infusion 17:45: 17:13 mL, IV [place] 500 mL 00 :00 Infusion, Medical ONCE, 1 Branch dose, 08/21/19 at 1245, Routine sodium 2019- 2020- No 30mL 30 mL, [facility] citrate-cit -20 04-20 Oral, ity of hong acid 16:41: 17:13 PRE-PROCED [place] (BICITRA) 43 :00 URE ONCE, Medic al 500-334 1 dose, Branch mg/5 mL Starting solution 30 Mon mL 08/21/19 at 1141, Until Wed08/21/19 at 1213, Routine, Surgery/Pr ocedure [id number] IV 2020- No 1000mL at 125 Uni vers infusion 08-20 04-21 mL/hr, IV ity o f 1,000 mL 13:00: 02:55 Infusion, [place] 00 :52 CONTINUOUS Medical , Starting Branch 08/21/19 at 0800, Until Wed08/21/19 at 2155, Routine LR 1000 mL 2019- No 2mU/min 2-40 [facility] vers + oxytocin 08-20-21 ashu-unit it y of 20 units IV 12:56: 00:55 s/min [place] Solution 55 :56 (6-120 Medical mL/hr), IV Branch Infusion, TITRATE, Oxytocin Induction / Augmentati on of Labor, Starting 08/21/19 at 0756
In fuse IV through a controlled infusion pump at a proximal port on the peripheral IV line.&nbsp ; Sta rt at 2 ashu-unit s/min and increase by 2 ashu-unit s/min every 20 minutes according to oxytocin policy 7.11.52.&n bsp; Going over 20 ashu-unit s/min requires faculty approval.& nbsp;&nbsp ;Max 40 ashu-unit s/min.
sodium 2019- 2020- No 30mL 30 mL, [facility] citrate-cit 08-20-20 Oral, ity of hong acid 12:52: 23:28 PRE-PROCED [place] (BICITRA) 13 :00 URE ONCE, Medic al 500-334 1 dose, Branch mg/5 mL Starting solution 30 Mon mL 08/21/19 at 0752, Until Discontinu ed, Routine, Surgery/Pr ocedure ARIPiprazol 2019- Yes [id number] 15mg Take 1 [facility] e 15 mg 4-01 tablet by ity of tablet 00:00: mouth [place] 00 daily. Medical Branch desvenlafax 2019- Yes [id number] 25mg Take 25 mg [facility] ine 4-01 by mouth ity of succinate 00:00: daily. [place] (PRISTIQ) 00 Medical 25 mg Tb24 Branch desvenlafax 2020-0 Yes [id number] 50mg Take 1 [facility] ine 4-01 tablet by ity of succinate 00:00: mouth [place] (PRISTIQ) 00 daily. Medical 50 mg 24 hr Branch tablet ARIPiprazol 2020-0 Yes [id number] 15mg Take 1 [facility] e 15 mg 4-01 tablet by ity of tablet 00:00: mouth [place] 00 daily. Medical Branch desvenlafax 2020-0 Yes [id number] 25mg Take 25 mg [facility] ine 4-01 by mouth ity of succinate 00:00: daily. [place] (PRISTIQ) 00 Medical 25 mg Tb24 Branch desvenlafax 2020-0 Yes [id number] 50mg Take 1 [facility] ine 4-01 tablet by ity of succinate 00:00: mouth [place] (PRISTIQ) 00 daily. Medical 50 mg 24 hr Branch tablet ARIPiprazol 2020-0 Yes [id number] 15mg Take 1 [facility] e 15 mg 4-01 tablet by ity of tablet 00:00: mouth [place] 00 daily. Medical Branch desvenlafax 2020-0 Yes [id number] 25mg Take 25 mg [facility] ine 4-01 by mouth ity of succinate 00:00: daily. [place] (PRISTIQ) 00 Medical 25 mg Tb24 Branch desvenlafax 2020-0 Yes [id number] 50mg Take 1 [facility] ine 4-01 tablet by ity of succinate 00:00: mouth [place] (PRISTIQ) 00 daily. Medical 50 mg 24 hr Branch tablet ARIPiprazol 2020-0 Yes [id number] 15mg Take 1 [facility] e 15 mg 4-01 tablet by ity of tablet 00:00: mouth [place] 00 daily. Medical Branch desvenlafax 2020-0 Yes [id number] 25mg Take 25 mg [facility] ine 4-01 by mouth ity of succinate 00:00: daily. [place] (PRISTIQ) 00 Medical 25 mg Tb24 Branch desvenlafax 2020-0 Yes [id number] 50mg Take 1 [facility] ine 4-01 tablet by ity of succinate 00:00: mouth [place] (PRISTIQ) 00 daily. Medical 50 mg 24 hr Branch tablet ARIPiprazol 2020-0 Yes [id number] 15mg Take 1 [facility] e 15 mg 4-01 tablet by ity of tablet 00:00: mouth [place] 00 daily. Medical Branch desvenlafax 2020-0 Yes [id number] 25mg Take 25 mg [facility] ine 4-01 by mouth ity of succinate 00:00: daily. [place] (PRISTIQ) 00 Medical 25 mg Tb24 Branch desvenlafax 2020-0 Yes [id number] 50mg Take 1 [facility] ine 4-01 tablet by ity of succinate 00:00: mouth [place] (PRISTIQ) 00 daily. Medical 50 mg 24 hr Branch tablet ARIPiprazol 2020-0 Yes [id number] 15mg Take 1 [facility] e 15 mg 4-01 tablet by ity of tablet 00:00: mouth [place] 00 daily. Medical Branch desvenlafax 2020-0 Yes [id number] 25mg Take 25 mg [facility] ine 4-01 by mouth ity of succinate 00:00: daily. [place] (PRISTIQ) 00 Medical 25 mg Tb24 Branch desvenlafax 2020-0 Yes [id number] 50mg Take 1 [facility] ine 4-01 tablet by ity of succinate 00:00: mouth [place] (PRISTIQ) 00 daily. Medical 50 mg 24 hr Branch tablet desvenlafax 2020-0 Yes [id number] 50mg Take 1 [facility] ine 4-01 tablet by ity of succinate 00:00: mouth [place] (PRISTIQ) 00 daily. Medical 50 mg 24 hr Branch tablet desvenlafax 2020-0 Yes [id number] 50mg Take 1 [facility] ine 4-01 tablet by ity of succinate 00:00: mouth [place] (PRISTIQ) 00 daily. Medical 50 mg 24 hr Branch tablet desvenlafax 2020-0 Yes [id number] 50mg Take 1 [facility] ine 4-01 tablet by ity of succinate 00:00: mouth [place] (PRISTIQ) 00 daily. Medical 50 mg 24 hr Branch tablet desvenlafax 2020-0 Yes [id number] 50mg Take 1 [facility] ine 4-01 tablet by ity of succinate 00:00: mouth [place] (PRISTIQ) 00 daily. Medical 50 mg 24 hr Branch tablet desvenlafax 2020-0 Yes [id number] 50mg Take 1 [facility] ine 4-01 tablet by ity of succinate 00:00: mouth [place] (PRISTIQ) 00 daily. Medical 50 mg 24 hr Branch tablet desvenlafax 2020-0 Yes [id number] 50mg Take 1 [facility] ine 4-01 tablet by ity of succinate 00:00: mouth [place] (PRISTIQ) 00 daily. Medical 50 mg 24 hr Branch tablet desvenlafax 2020-0 Yes [id number] 50mg Take 1 [facility] ine 4-01 tablet by ity of succinate 00:00: mouth [place] (PRISTIQ) 00 daily. Medical 50 mg 24 hr Branch tablet desvenlafax 2020-0 Yes [id number] 50mg Take 1 [facility] ine 4-01 tablet by ity of succinate 00:00: mouth [place] (PRISTIQ) 00 daily. Medical 50 mg 24 hr Branch tablet desvenlafax 2020-0 Yes [id number] 50mg Take 1 [facility] ine 4-01 tablet by ity of succinate 00:00: mouth [place] (PRISTIQ) 00 daily. Medical 50 mg 24 hr Branch tablet ARIPiprazol 2020-0 Yes [id number] 15mg Take 1 [facility] e 15 mg 4-01 tablet by ity of tablet 00:00: mouth [place] 00 daily. Medical Branch desvenlafax 2020-0 Yes [id number] 25mg Take 25 mg [facility] ine 4-01 by mouth ity of succinate 00:00: daily. [place] (PRISTIQ) 00 Medical 25 mg Tb24 Branch desvenlafax 2020-0 Yes [id number] 50mg Take 1 [facility] ine 4-01 tablet by ity of succinate 00:00: mouth [place] (PRISTIQ) 00 daily. Medical 50 mg 24 hr Branch tablet ARIPiprazol 2020-0 Yes [id number] 15mg Take 1 [facility] e 15 mg 4-01 tablet by ity of tablet 00:00: mouth [place] 00 daily. Medical Branch desvenlafax 2020-0 Yes [id number] 25mg Take 25 mg [facility] ine 4-01 by mouth ity of succinate 00:00: daily. [place] (PRISTIQ) 00 Medical 25 mg Tb24 Branch desvenlafax 2020-0 Yes [id number] 50mg Take 1 [facility] ine 4-01 tablet by ity of succinate 00:00: mouth [place] (PRISTIQ) 00 daily. Medical 50 mg 24 hr Branch tablet ARIPiprazol 2020-0 Yes [id number] 15mg Take 1 [facility] e 15 mg 4-01 tablet by ity of tablet 00:00: mouth [place] 00 daily. Medical Branch desvenlafax 2020-0 Yes [id number] 25mg Take 25 mg [facility] ine 4-01 by mouth ity of succinate 00:00: daily. [place] (PRISTIQ) 00 Medical 25 mg Tb24 Branch desvenlafax 2020-0 Yes [id number] 50mg Take 1 [facility] ine 4-01 tablet by ity of succinate 00:00: mouth [place] (PRISTIQ) 00 daily. Medical 50 mg 24 hr Branch tablet ARIPiprazol 2020-0 Yes [id number] 15mg Take 1 [facility] 15 mg 4-01 tablet by [facility] tablet 00:00: mouth [place] 00 daily. [facility] desvenlafax 2020-0 Yes [id number] 25mg Take 25 mg [facility] in[facility] 4-01 by mouth ity of succinate 00:00: daily. [place] (PRISTIQ) 00 Medical 25 mg Tb24 Branch desvenlafax 2020-0 Yes [id number] 50mg Take 1 [facility] in[facility] 4-01 tablet by [facility] of succinate 00:00: mouth [place] (PRISTIQ) 00 daily. Medical 50 mg 24 hr Branch tablet ARIPiprazol 2020-0 Yes [id number] 15mg Take 1 [facility] 15 mg 4-01 tablet by [facility] of tablet 00:00: mouth [place] 00 daily. Medical [facility] desvenlafax 2020-0 Yes [id number] 25mg Take 25 mg [facility] 4-01 by mouth ity of succinate 00:00: daily. [place] (PRISTIQ) 00 Medical 25 mg Tb24 Branch desvenlafax 2020-0 Yes [id number] 50mg Take 1 [facility] 4-01 tablet by [facility] of succinate 00:00: mouth [place] (PRISTIQ) 00 daily. Medical 50 mg 24 hr Branch tablet ARIPiprazol 2020-0 Yes [id number] 15mg Take 1 [facility] 15 mg 4-01 tablet by [facility] of tablet 00:00: mouth [place] 00 daily. Medical [facility] desvenlafax 2020-0 Yes [id number] 25mg Take 25 mg [facility] 4-01 by mouth [facility]y of succinate 00:00: daily. [place] (PRISTIQ) 00 Medical 25 mg Tb24 Branch desvenlafax 2020-0 Yes [id number] 50mg Take 1 [facility] 4-01 tablet by [facility] of succinate 00:00: mouth [place] (PRISTIQ) 00 daily. Medical 50 mg 24 hr Branch tablet ARIPiprazol 2020-0 Yes [id number] 15mg Take 1 [facility] 15 mg 4-01 tablet by [facility] of tablet 00:00: mouth [place] 00 daily. Medical [facility] desvenlafax 2020-0 Yes [id number] 25mg Take 25 mg [facility] 4-01 by mouth [facility]y of succinate 00:00: daily. [place] (PRISTIQ) 00 Medical 25 mg Tb24 Branch desvenlafax 2020-0 Yes [id number] 50mg Take 1 [facility] 4-01 tablet by [facility] of succinate 00:00: mouth [place] (PRISTIQ) 00 daily. Medical 50 mg 24 hr Branch tablet ARIPiprazol 2020-0 Yes [id number] 15mg Take 1 [facility] 15 mg 4-01 tablet by [facility] of tablet 00:00: mouth [place] 00 daily. Medical [facility] desvenlafax 2020-0 Yes [id number] 25mg Take 25 mg [facility] 4-01 by mouth [facility]y of succinate 00:00: daily. [place] (PRISTIQ) 00 Medical 25 mg Tb24 Branch desvenlafax 2020-0 Yes [id number] 50mg Take 1 [facility] 4-01 tablet by [facility] of succinate 00:00: mouth [place] (PRISTIQ) 00 daily. Medical 50 mg 24 hr Branch tablet ARIPiprazol 2020-0 Yes [id number] 15mg Take 1 [facility] 15 mg 4-01 tablet by [facility] of tablet 00:00: mouth [place] 00 daily. Medical [facility] desvenlafax 2020-0 Yes [id number] 25mg Take 25 mg [facility] 4-01 by mouth [facility] of succinate 00:00: daily. [place] (PRISTIQ) 00 Medical 25 mg Tb24 Branch desvenlafax 2020-0 Yes [id number] 50mg Take 1 [facility] 4-01 tablet by [facility] of succinate 00:00: mouth [place] (PRISTIQ) 00 daily. Medical 50 mg 24 hr Branch tablet ARIPiprazol 2020-0 Yes [id number] 15mg Take 1 [facility] 15 mg 4-01 tablet by [facility] of tablet 00:00: mouth [place] 00 daily. Medical [facility] desvenlafax 2020-0 Yes [id number] 25mg Take 25 mg [facility] 4-01 by mouth [facility]y of succinate 00:00: daily. [place] (PRISTIQ) 00 Medical 25 mg Tb24 Branch desvenlafax 2020-0 Yes [id number] 50mg Take 1 [facility] 4-01 tablet by [facility] of succinate 00:00: mouth [place] (PRISTIQ) 00 daily. Medical 50 mg 24 hr Branch tablet ARIPiprazol 2020-0 Yes [id number] 15mg Take 1 [facility] 15 mg 4-01 tablet by [facility] of tablet 00:00: mouth [place] 00 daily. Medical [facility] desvenlafax 2020-0 Yes [id number] 25mg Take 25 mg [facility] 4-01 by mouth ity of succinate 00:00: daily. [place] (PRISTIQ) 00 Medical 25 mg Tb24 Branch desvenlafax 2020-0 Yes [id number] 50mg Take 1 [facility] 4-01 tablet by [facility] of succinate 00:00: mouth [place] (PRISTIQ) 00 daily. Medical 50 mg 24 hr Branch tablet desvenlafax 2020-0 Yes [id number] 25mg Take 25 mg [facility] 3-05 by mouth ity of succinate 00:00: daily. [place] (PRISTIQ) 00 Medical 25 mg Tb24 Branch desvenlafax 2020-0 Yes [id number] 50mg Take 1 [facility] 3-05 tablet by [facility] of succinate 00:00: mouth [place] (PRISTIQ) 00 daily. Medical 50 mg 24 hr Branch tablet desvenlafax 2020-0 Yes [id number] 25mg Take 25 mg [facility] 3-05 by mouth [facility]y of succinate 00:00: daily. [place] (PRISTIQ) 00 Medical 25 mg Tb24 Branch desvenlafax 2020-0 Yes [id number] 50mg Take 1 [facility] 3-05 tablet by [facility] of succinate 00:00: mouth [place] (PRISTIQ) 00 daily. Medical 50 mg 24 hr Branch tablet desvenlafax 2020-0 Yes [id number] 25mg Take 25 mg [facility] 3-05 by mouth [facility] of succinate 00:00: daily. [place] (PRISTIQ) 00 Medical 25 mg Tb24 Branch desvenlafax 2020-0 Yes [id number] 50mg Take 1 [facility] 3-05 tablet by [facility] of succinate 00:00: mouth [place] (PRISTIQ) 00 daily. Medical 50 mg 24 hr Branch tablet desvenlafax 2020-0 Yes [id number] 25mg Take 25 mg [facility] 3-05 by mouth [facility]y of succinate 00:00: daily. [place] (PRISTIQ) 00 Medical 25 mg Tb24 Branch desvenlafax 2020-0 Yes [id number] 50mg Take 1 [facility] 3-05 tablet by [facility] of succinate 00:00: mouth [place] (PRISTIQ) 00 daily. Medical 50 mg 24 hr Branch tablet desvenlafax 2020-0 Yes [id number] 25mg Take 25 mg [facility] 3-05 by mouth ity of succinate 00:00: daily. [place] (PRISTIQ) 00 Medical 25 mg Tb24 Branch desvenlafax 2020-0 Yes [id number] 50mg Take 1 [facility] 3-05 tablet by ity of succinate 00:00: mouth [place] (PRISTIQ) 00 daily. Medical 50 mg 24 hr Branch tablet desvenlafax 2020-0 Yes [id number] 25mg Take 25 mg [facility] 3-05 by mouth [facility]y of succinate 00:00: daily. [place] (PRISTIQ) 00 Medical 25 mg Tb24 Branch desvenlafax 2020-0 Yes [id number] 50mg Take 1 [facility] 3-05 tablet by [facility] of succinate 00:00: mouth [place] (PRISTIQ) 00 daily. Medical 50 mg 24 hr Branch tablet desvenlafax 2020-0 Yes [id number] 25mg Take 25 mg [facility] 3-05 by mouth ity of succinate 00:00: daily. [place] (PRISTIQ) 00 Medical 25 mg Tb24 Branch desvenlafax 2020-0 Yes [id number] 50mg Take 1 [facility] 3-05 tablet by it[facility] of succinate 00:00: mouth [place] (PRISTIQ) 00 daily. Medical 50 mg 24 hr Branch tablet desvenlafax 2020-0 Yes [id number] 25mg Take 25 mg [facility] 3-05 by mouth [facility]y of succinate 00:00: daily. [place] (PRISTIQ) 00 Medical 25 mg Tb24 Branch desvenlafax 2020-0 Yes [id number] 50mg Take 1 [facility] 3-05 tablet by [facility]y of succinate 00:00: mouth [place] (PRISTIQ) 00 daily. Medical 50 mg 24 hr Branch tablet desvenlafax 2020-0 Yes [id number] 25mg Take 25 mg [facility] 3-05 by mouth ity of succinate 00:00: daily. [place] (PRISTIQ) 00 Medical 25 mg Tb24 Branch desvenlafax 2020-0 Yes [id number] 50mg Take 1 [facility] 3-05 tablet by ity of succinate 00:00: mouth [place] (PRISTIQ) 00 daily. Medical 50 mg 24 hr Branch tablet desvenlafax 2020-0 Yes [id number] 25mg Take 25 mg [facility] 3-05 by mouth [facility]y of succinate 00:00: daily. [place] (PRISTIQ) 00 Medical 25 mg Tb24 Branch desvenlafax 2020-0 Yes [id number] 50mg Take 1 [facility] 3-05 tablet by ity of succinate 00:00: mouth [place] (PRISTIQ) 00 daily. Medical 50 mg 24 hr Branch tablet desvenlafax 2020-0 Yes [id number] 25mg Take 25 mg [facility] 3-05 by mouth ity of succinate 00:00: daily. [place] (PRISTIQ) 00 Medical 25 mg Tb24 Branch desvenlafax 2020-0 Yes [id number] 50mg Take 1 [facility] 3-05 tablet by ity of succinate 00:00: mouth [place] (PRISTIQ) 00 daily. Medical 50 mg 24 hr Branch tablet desvenlafax 2020-0 Yes [id number] 25mg Take 25 mg [facility] 3-05 by mouth ity of succinate 00:00: daily. [place] (PRISTIQ) 00 Medical 25 mg Tb24 Branch desvenlafax 2020-0 Yes [id number] 50mg Take 1 [facility] 3-05 tablet by ity of succinate 00:00: mouth [place] (PRISTIQ) 00 daily. Medical 50 mg 24 hr Branch tablet ferrous 2020-0 Yes [id number] 325mg Take 1 [facility] kit[facility] sulfate 2-08 tablet by ity of (IRON, 00:00: mouth 2 [place] FERROUS 00 (two) Medical SULFATE,) times Branch 325 mg (65 daily. mg iron) tablet ascorbic 2020-0 Yes [id number] 500mg Take 1 [facility] n[facility] acid, 2-08 tablet by [facility] of vitamin C, 00:00: mouth 3 [place] 500 mg 00 (three) Medical tablet times Branch daily. ferrous 2020-0 Yes [id number] 325mg Take 1 [facility] kit[facility] sulfate 2-08 tablet by ity of (IRON, 00:00: mouth 2 [place] FERROUS 00 (two) Medical SULFATE,) times Branch 325 mg (65 daily. mg iron) tablet ascorbic 2020-0 Yes [id number] 500mg Take 1 [facility] n[facility] acid, 2-08 tablet by [facility] vitamin C, 00:00: mouth 3 [place] 500 mg 00 (three) Medical tablet times Branch daily. ferrous 2020-0 Yes [id number] 325mg Take 1 [facility] sulfate 2-08 tablet by ity of (IRON, 00:00: mouth 2 [place] FERROUS 00 (two) Medical SULFATE,) times Branch 325 mg (65 daily. mg iron) tablet ascorbic 2020-0 Yes [id number] 500mg Take 1 [facility] n[facility] acid, 2-08 tablet by [facility] of vitamin C, 00:00: mouth 3 [place] 500 mg 00 (three) Medical tablet times Branch daily. ferrous 2020-0 Yes [id number] 325mg Take 1 [facility] [place] sulfate 2-08 tablet by ity of (IRON, 00:00: mouth 2 [place] FERROUS 00 (two) Medical SULFATE,) times Branch 325 mg (65 daily. mg iron) tablet ascorbic 2020-0 Yes [id number] 500mg Take 1 [facility] nivers acid, 2-08 tablet by [facility] of vitamin C, 00:00: mouth 3 [place] 500 mg 00 (three) Medical tablet times Branch daily. ferrous 2020-0 Yes [id number] 325mg Take 1 [facility] kit[facility] sulfate 2-08 tablet by ity of (IRON, 00:00: mouth 2 [place] FERROUS 00 (two) Medical SULFATE,) times Branch 325 mg (65 daily. mg iron) tablet ascorbic 2020-0 Yes [id number] 500mg Take 1 [facility] nivers acid, 2-08 tablet by [facility] of vitamin C, 00:00: mouth 3 [place] 500 mg 00 (three) Medical tablet times Branch daily. ferrous 2020-0 Yes [id number] 325mg Take 1 [facility] [place] sulfate 2-08 tablet by ity of (IRON, 00:00: mouth 2 [place] FERROUS 00 (two) Medical SULFATE,) times Branch 325 mg (65 daily. mg iron) tablet ascorbic 2020-0 Yes [id number] 500mg Take 1 [facility] nivers acid, 2-08 tablet by [facility] of vitamin C, 00:00: mouth 3 [place] 500 mg 00 (three) Medical tablet times Branch daily. ferrous 2020-0 Yes [id number] 325mg Take 1 [facility] [place] sulfate 2-08 tablet by ity of (IRON, 00:00: mouth 2 [place] FERROUS 00 (two) Medical SULFATE,) times Branch 325 mg (65 daily. mg iron) tablet ascorbic 2020-0 Yes [id number] 500mg Take 1 [facility] nivers acid, 2-08 tablet by it[facility] of vitamin C, 00:00: mouth 3 [place] 500 mg 00 (three) Medical tablet times Branch daily. ferrous 2020-0 Yes [id number] 325mg Take 1 [facility] kit[facility] sulfate 2-08 tablet by ity of (IRON, 00:00: mouth 2 [place] FERROUS 00 (two) Medical SULFATE,) times Branch 325 mg (65 daily. mg iron) tablet ascorbic 2020-0 Yes [id number] 500mg Take 1 [facility] nivers acid, 2-08 tablet by it[facility] of vitamin C, 00:00: mouth 3 [place] 500 mg 00 (three) Medical tablet times Branch daily. ferrous 2020-0 Yes [id number] 325mg Take 1 [facility] kit[facility] sulfate 2-08 tablet by ity of (IRON, 00:00: mouth 2 [place] FERROUS 00 (two) Medical SULFATE,) times Branch 325 mg (65 daily. mg iron) tablet ascorbic 2020-0 Yes [id number] 500mg Take 1 [facility] nivers acid, 2-08 tablet by ity of vitamin C, 00:00: mouth 3 [place] 500 mg 00 (three) Medical tablet times Branch daily. ferrous 2020-0 Yes [id number] 325mg Take 1 [facility] kit[facility] sulfate 2-08 tablet by ity of (IRON, 00:00: mouth 2 [place] FERROUS 00 (two) Medical SULFATE,) times Branch 325 mg (65 daily. mg iron) tablet ascorbic 2020-0 Yes [id number] 500mg Take 1 [facility] nivers acid, 2-08 tablet by ity of vitamin C, 00:00: mouth 3 [place] 500 mg 00 (three) Medical tablet times Branch daily. ferrous 2020-0 Yes [id number] 325mg Take 1 [facility] kit[facility] sulfate 2-08 tablet by ity of (IRON, 00:00: mouth 2 [place] FERROUS 00 (two) Medical SULFATE,) times Branch 325 mg (65 daily. mg iron) tablet ascorbic 2020-0 Yes [id number] 500mg Take 1 [facility] nivers acid, 2-08 tablet by ity of vitamin C, 00:00: mouth 3 [place] 500 mg 00 (three) Medical tablet times Branch daily. ferrous 2020-0 Yes [id number] 325mg Take 1 [facility] kit[facility] sulfate 2-08 tablet by ity of (IRON, 00:00: mouth 2 [place] FERROUS 00 (two) Medical SULFATE,) times Branch 325 mg (65 daily. mg iron) tablet ascorbic 2020-0 Yes [id number] 500mg Take 1 [facility] nivers acid, 2-08 tablet by ity of vitamin C, 00:00: mouth 3 [place] 500 mg 00 (three) Medical tablet times Branch daily. ferrous 2020-0 Yes [id number] 325mg Take 1 [facility] kit[facility] sulfate 2-08 tablet by ity of (IRON, 00:00: mouth 2 [place] FERROUS 00 (two) Medical SULFATE,) times Branch 325 mg (65 daily. mg iron) tablet ascorbic 2020-0 Yes [id number] 500mg Take 1 [facility] nivers acid, 2-08 tablet by ity of vitamin C, 00:00: mouth 3 [place] 500 mg 00 (three) Medical tablet times Branch daily. ferrous 2020-0 Yes [id number] 325mg Take 1 [facility] kit[facility] sulfate 2-08 tablet by ity of (IRON, 00:00: mouth 2 [place] FERROUS 00 (two) Medical SULFATE,) times Branch 325 mg (65 daily. mg iron) tablet ascorbic 2020-0 Yes [id number] 500mg Take 1 [facility] nivers acid, 2-08 tablet by ity of vitamin C, 00:00: mouth 3 [place] 500 mg 00 (three) Medical tablet times Branch daily. ferrous 2020-0 Yes [id number] 325mg Take 1 [facility] kitty sulfate 2-08 tablet by ity of (IRON, 00:00: mouth 2 [place] FERROUS 00 (two) Medical SULFATE,) times Branch 325 mg (65 daily. mg iron) tablet ascorbic 2020-0 Yes [id number] 500mg Take 1 [facility] nivers acid, 2-08 tablet by ity of vitamin C, 00:00: mouth 3 [place] 500 mg 00 (three) Medical tablet times Branch daily. ferrous 2020-0 Yes [id number] 325mg Take 1 [facility] kit[facility] sulfate 2-08 tablet by ity of (IRON, 00:00: mouth 2 [place] FERROUS 00 (two) Medical SULFATE,) times Branch 325 mg (65 daily. mg iron) tablet ascorbic 2020-0 Yes [id number] 500mg Take 1 [facility] nivers acid, 2-08 tablet by ity of vitamin C, 00:00: mouth 3 [place] 500 mg 00 (three) Medical tablet times Branch daily. ferrous 2020-0 Yes [id number] 325mg Take 1 [facility] kit[facility] sulfate 2-08 tablet by ity of (IRON, 00:00: mouth 2 [place] FERROUS 00 (two) Medical SULFATE,) times Branch 325 mg (65 daily. mg iron) tablet ascorbic 2020-0 Yes [id number] 500mg Take 1 [facility] nivers acid, 2-08 tablet by ity of vitamin C, 00:00: mouth 3 [place] 500 mg 00 (three) Medical tablet times Branch daily. ferrous 2020-0 Yes [id number] 325mg Take 1 [facility] kit[facility] sulfate 2-08 tablet by ity of (IRON, 00:00: mouth 2 [place] FERROUS 00 (two) Medical SULFATE,) times Branch 325 mg (65 daily. mg iron) tablet ascorbic 2020-0 Yes [id number] 500mg Take 1 [facility] nivers acid, 2-08 tablet by ity of vitamin C, 00:00: mouth 3 [place] 500 mg 00 (three) Medical tablet times Branch daily. ferrous 2020-0 Yes [id number] 325mg Take 1 [facility] kitty sulfate 2-08 tablet by ity of (IRON, 00:00: mouth 2 [place] FERROUS 00 (two) Medical SULFATE,) times Branch 325 mg (65 daily. mg iron) tablet ascorbic 2020-0 Yes [id number] 500mg Take 1 [facility] nivers acid, 2-08 tablet by ity of vitamin C, 00:00: mouth 3 [place] 500 mg 00 (three) Medical tablet times Branch daily. ferrous 2020-0 Yes [id number] 325mg Take 1 Un kit[facility] sulfate 2-08 tablet by ity of (IRON, 00:00: mouth 2 [place] FERROUS 00 (two) Medical SULFATE,) times Branch 325 mg (65 daily. mg iron) tablet ascorbic 2020-0 Yes [id number] 500mg Take 1 [facility] nivers acid, 2-08 tablet by ity of vitamin C, 00:00: mouth 3 [place] 500 mg 00 (three) Medical tablet times Branch daily. ferrous 2020-0 Yes [id number] 325mg Take 1 Un kit[facility] sulfate 2-08 tablet by ity of (IRON, 00:00: mouth 2 [place] FERROUS 00 (two) Medical SULFATE,) times Branch 325 mg (65 daily. mg iron) tablet ascorbic 2020-0 Yes [id number] 500mg Take 1 [facility] nivers acid, 2-08 tablet by ity of vitamin C, 00:00: mouth 3 [place] 500 mg 00 (three) Medical tablet times Branch daily. ferrous 2020-0 Yes [id number] 325mg Take 1 Un kitty sulfate 2-08 tablet by ity of (IRON, 00:00: mouth 2 [place] FERROUS 00 (two) Medical SULFATE,) times Branch 325 mg (65 daily. mg iron) tablet ascorbic 2020-0 Yes [id number] 500mg Take 1 [facility] nivers acid, 2-08 tablet by ity of vitamin C, 00:00: mouth 3 [place] 500 mg 00 (three) Medical tablet times Branch daily. ferrous 2020-0 Yes [id number] 325mg Take 1 Un kit[facility] sulfate 2-08 tablet by ity of (IRON, 00:00: mouth 2 [place] FERROUS 00 (two) Medical SULFATE,) times Branch 325 mg (65 daily. mg iron) tablet ascorbic 2020-0 Yes [id number] 500mg Take 1 [facility] nivers acid, 2-08 tablet by ity of vitamin C, 00:00: mouth 3 [place] 500 mg 00 (three) Medical tablet times Branch daily. ferrous 2020-0 Yes [id number] 325mg Take 1 Un kit[facility] sulfate 2-08 tablet by ity of (IRON, 00:00: mouth 2 [place] FERROUS 00 (two) Medical SULFATE,) times Branch 325 mg (65 daily. mg iron) tablet ascorbic 2020-0 Yes [id number] 500mg Take 1 [facility] nivers acid, 2-08 tablet by ity of vitamin C, 00:00: mouth 3 [place] 500 mg 00 (three) Medical tablet times Branch daily. ferrous 2020-0 Yes [id number] 325mg Take 1 Un kit[facility] sulfate 2-08 tablet by ity of (IRON, 00:00: mouth 2 [place] FERROUS 00 (two) Medical SULFATE,) times Branch 325 mg (65 daily. mg iron) tablet ascorbic 2020-0 Yes [id number] 500mg Take 1 [facility] nivers acid, 2-08 tablet by ity of vitamin C, 00:00: mouth 3 [place] 500 mg 00 (three) Medical tablet times Branch daily. ferrous 2020-0 Yes [id number] 325mg Take 1 Un kit[facility] sulfate 2-08 tablet by ity of (IRON, 00:00: mouth 2 [place] FERROUS 00 (two) Medical SULFATE,) times Branch 325 mg (65 daily. mg iron) tablet ascorbic 2020-0 Yes [id number] 500mg Take 1 [facility] nivers acid, 2-08 tablet by ity of vitamin C, 00:00: mouth 3 [place] 500 mg 00 (three) Medical tablet times Branch daily. ferrous 2020-0 2020- No [id number] 325mg Take 1 U nivers sulfate 06-10 tablet by ity of (IRON, 00:00: 00:00 mouth 2 [place] FERROUS 00 :00 (two) Medical SULFATE,) times Branch 325 mg (65 daily. mg iron) tablet ascorbic 2019- No [id number] 500mg Take 1 [facility] acid, 06-10 tablet by ity of vitamin C, 00:00: 00:00 mouth 3 [place] 500 mg 00 :00 (three) Medical tablet times Branch daily. proMETHazin 2018-05 Yes [id number] 25mg Take 1 [facility] 25 mg 1-14 tablet by ity of tablet 00:00: mouth [place] 00 every 6 Medical (six) Branch hours as needed for Nausea and Vomiting (N/V). proMETHazin 2018-05 Yes [id number] 25mg Take 1 [facility] 25 mg 1-14 tablet by ity of tablet 00:00: mouth [place] 00 every 6 Medical (six) Branch hours as needed for Nausea and Vomiting (N/V). proMETHazin 2018-05 Yes [id number] 25mg Take 1 [facility] 25 mg 1-14 tablet by ity of tablet 00:00: mouth [place] 00 every 6 Medical (six) Branch hours as needed for Nausea and Vomiting (N/V). proMETHazin 2018-05 Yes [id number] 25mg Take 1 [facility] 25 mg 1-14 tablet by ity of tablet 00:00: mouth [place] 00 every 6 Medical (six) Branch hours as needed for Nausea and Vomiting (N/V). proMETHazin 2018-05 Yes [id number] 25mg Take 1 [facility] 25 mg 1-14 tablet by ity of tablet 00:00: mouth [place] 00 every 6 Medical (six) Branch hours as needed for Nausea and Vomiting (N/V). proMETHazin 2018-05 Yes [id number] 25mg Take 1 [facility] 25 mg 1-14 tablet by ity of tablet 00:00: mouth [place] 00 every 6 Medical (six) Branch hours as needed for Nausea and Vomiting (N/V). proMETHazin 2018-05 Yes [id number] 25mg Take 1 [facility] 25 mg 1-14 tablet by ity of tablet 00:00: mouth [place] 00 every 6 Medical (six) Branch hours as needed for Nausea and Vomiting (N/V). proMETHazin 2018-05 Yes [id number] 25mg Take 1 [facility] 25 mg 1-14 tablet by ity of tablet 00:00: mouth [place] 00 every 6 Medical (six) Branch hours as needed for Nausea and Vomiting (N/V). proMETHazin 2018-05 Yes [id number] 25mg Take 1 [facility] 25 mg 1-14 tablet by ity of tablet 00:00: mouth [place] 00 every 6 Medical (six) Branch hours as needed for Nausea and Vomiting (N/V). proMETHazin 2018-05 Yes [id number] 25mg Take 1 [facility] 25 mg 1-14 tablet by ity of tablet 00:00: mouth [place] 00 every 6 Medical (six) Branch hours as needed for Nausea and Vomiting (N/V). proMETHazin 2018-05 Yes [id number] 25mg Take 1 [facility] 25 mg 1-14 tablet by ity of tablet 00:00: mouth [place] 00 every 6 Medical (six) Branch hours as needed for Nausea and Vomiting (N/V). proMETHazin 2018-05 Yes [id number] 25mg Take 1 [facility] 25 mg 1-14 tablet by ity of tablet 00:00: mouth [place] 00 every 6 Medical (six) Branch hours as needed for Nausea and Vomiting (N/V). proMETHazin 2018-05 Yes [id number] 25mg Take 1 [facility] 25 mg 1-14 tablet by ity of tablet 00:00: mouth [place] 00 every 6 Medical (six) Branch hours as needed for Nausea and Vomiting (N/V). proMETHazin 2018-05 Yes [id number] 25mg Take 1 [facility] 25 mg 1-14 tablet by ity of tablet 00:00: mouth [place] 00 every 6 Medical (six) Branch hours as needed for Nausea and Vomiting (N/V). proMETHazin 2018-05 Yes [id number] 25mg Take 1 [facility] 25 mg 1-14 tablet by ity of tablet 00:00: mouth [place] 00 every 6 Medical (six) Branch hours as needed for Nausea and Vomiting (N/V). proMETHazin 2018-05 Yes [id number] 25mg Take 1 [facility] 25 mg 1-14 tablet by ity of tablet 00:00: mouth [place] 00 every 6 Medical (six) Branch hours as needed for Nausea and Vomiting (N/V). proMETHazin 2018-05 Yes [id number] 25mg Take 1 [facility] 25 mg 1-14 tablet by ity of tablet 00:00: mouth [place] 00 every 6 Medical (six) Branch hours as needed for Nausea and Vomiting (N/V). proMETHazin 2018-05 Yes [id number] 25mg Take 1 [facility] 25 mg 1-14 tablet by ity of tablet 00:00: mouth [place] 00 every 6 Medical (six) Branch hours as needed for Nausea and Vomiting (N/V). proMETHazin 2018-05 Yes [id number] 25mg Take 1 [facility] 25 mg 1-14 tablet by ity of tablet 00:00: mouth [place] 00 every 6 Medical (six) Branch hours as needed for Nausea and Vomiting (N/V). proMETHazin 2018-05 Yes [id number] 25mg Take 1 [facility] 25 mg 1-14 tablet by ity of tablet 00:00: mouth [place] 00 every 6 Medical (six) Branch hours as needed for Nausea and Vomiting (N/V). proMETHazin 2018-05 Yes [id number] 25mg Take 1 [facility] 25 mg 1-14 tablet by ity of tablet 00:00: mouth [place] 00 every 6 Medical (six) Branch hours as needed for Nausea and Vomiting (N/V). proMETHazin 2018-05 Yes [id number] 25mg Take 1 [facility] 25 mg 1-14 tablet by ity of tablet 00:00: mouth [place] 00 every 6 Medical (six) Branch hours as needed for Nausea and Vomiting (N/V). proMETHazin 2018-05 Yes [id number] 25mg Take 1 [facility] 25 mg 1-14 tablet by ity of tablet 00:00: mouth [place] 00 every 6 Medical (six) Branch hours as needed for Nausea and Vomiting (N/V). proMETHazin 2018-05 Yes [id number] 25mg Take 1 [facility] 25 mg 1-14 tablet by ity of tablet 00:00: mouth [place] 00 every 6 Medical (six) Branch hours as needed for Nausea and Vomiting (N/V). proMETHazin 2018-05 Yes [id number] 25mg Take 1 [facility] 25 mg 1-14 tablet by ity of tablet 00:00: mouth [place] 00 every 6 Medical (six) Branch hours as needed for Nausea and Vomiting (N/V). proMETHazin 2018-05 Yes [id number] 25mg Take 1 [facility] 25 mg 1-14 tablet by ity of tablet 00:00: mouth [place] 00 every 6 Medical (six) Branch hours as needed for Nausea and Vomiting (N/V). proMETHazin 2018-05 Yes [id number] 25mg Take 1 [facility] 25 mg 1-14 tablet by ity of tablet 00:00: mouth [place] 00 every 6 Medical (six) Branch hours as needed for Nausea and Vomiting (N/V). proMETHazin 2018-05 Yes [id number] 25mg Take 1 [facility] 25 mg 1-14 tablet by ity of tablet 00:00: mouth [place] 00 every 6 Medical (six) Branch hours as needed for Nausea and Vomiting (N/V). proMETHazin 2018-05 Yes [id number] 25mg Take 1 [facility] 25 mg 1-14 tablet by ity of tablet 00:00: mouth [place] 00 every 6 Medical (six) Branch hours as needed for Nausea and Vomiting (N/V). proMETHazin 2018-05 Yes [id number] 25mg Take 1 [facility] 25 mg 1-14 tablet by ity of tablet 00:00: mouth [place] 00 every 6 Medical (six) Branch hours as needed for Nausea and Vomiting (N/V). proMETHazin 2018-05 2020- No [id number] 25mg Take 1 [facility] e 25 mg 1-14 04-21 tablet by ity of tablet 00:00: 00:00 mouth [place] 00 :00 every 6 Medical (six) Branch hours as needed for Nausea and Vomiting (N/V). diphenhydrA 2018-05 Yes [id number] Take one [facility] MINE 25 mg 0-14 tablet ity of tablet 00:00: three [place] 00 times a Medical day as Branch needed for anxiety diphenhydrA 2018-05 Yes [id number] Take one [facility] MINE 25 mg 0-14 tablet ity of tablet 00:00: three [place] 00 times a Medical day as Branch needed for anxiety diphenhydrA 2018-05 Yes [id number] Take one [facility] MINE 25 mg 0-14 tablet ity of tablet 00:00: three [place] 00 times a Medical day as Branch needed for anxiety diphenhydrA 2018-05 Yes [id number] Take one [facility] MINE 25 mg 0-14 tablet ity of tablet 00:00: three [place] 00 times a Medical day as Branch needed for anxiety diphenhydrA 2018-05 Yes [id number] Take one [facility] MINE 25 mg 0-14 tablet ity of tablet 00:00: three [place] 00 times a Medical day as Branch needed for anxiety diphenhydrA 2019- Yes [id number] Take one [facility] MINE 25 mg 0-14 tablet ity of tablet 00:00: three [place] 00 times a Medical day as Branch needed for anxiety diphenhydrA 2019- Yes [id number] Take one [facility] MINE 25 mg 0-14 tablet ity of tablet 00:00: three [place] 00 times a Medical day as Branch needed for anxiety diphenhydrA 2019- Yes [id number] Take one [facility] MINE 25 mg 0-14 tablet ity of tablet 00:00: three [place] 00 times a Medical day as Branch needed for anxiety diphenhydrA 2019- Yes [id number] Take one [facility] mg 0-14 tablet [facility] of tablet 00:00: three [place] 00 times a Medical day as Branch needed for anxiety diphenhydrA 2019- Yes [id number] Take one [facility] M[facility] 25 mg 0-14 tablet ity of tablet 00:00: three [place] 00 times a Medical day as Branch needed for anxiety diphenhydrA 2019- Yes [id number] Take one [facility] MINE 25 mg 0-14 tablet ity of tablet 00:00: three [place] 00 times a Medical day as Branch needed for anxiety diphenhydrA 2019- Yes [id number] Take one [facility] MINE 25 mg 0-14 tablet ity of tablet 00:00: three [place] 00 times a Medical day as Branch needed for anxiety diphenhydrA 2019- Yes [id number] Take one [facility] MINE 25 mg 0-14 tablet ity of tablet 00:00: three [place] 00 times a Medical day as Branch needed for anxiety diphenhydrA 2019- Yes [id number] Take one [facility] MINE 25 mg 0-14 tablet ity of tablet 00:00: three [place] 00 times a Medical day as Branch needed for anxiety diphenhydrA 2019- Yes [id number] Take one [facility] M[facility] 25 mg 0-14 tablet ity of tablet 00:00: three [place] 00 times a Medical day as Branch needed for anxiety diphenhydrA 2019- Yes [id number] Take one [facility] MINE 25 mg 0-14 tablet ity of tablet 00:00: three [place] 00 times a Medical day as Branch needed for anxiety diphenhydrA 2019- Yes [id number] Take one [facility] MINE 25 mg 0-14 tablet ity of tablet 00:00: three [place] 00 times a Medical day as Branch needed for anxiety ARIPiprazol 2018-05 Yes [id number] 15mg Take 1 [facility] e 15 mg 0-14 tablet by [facility] of tablet 00:00: mouth [place] 00 daily. Medical Branch diphenhydrA 2018-05 Yes [id number] Take one [facility] MINE 25 mg 0-14 tablet ity of tablet 00:00: three [place] 00 times a Medical day as Branch needed for anxiety ARIPiprazol 2018-05 Yes [id number] 15mg Take 1 [facility] e 15 mg 0-14 tablet by [facility] of tablet 00:00: mouth [place] 00 daily. Medical Branch diphenhydrA 2018-05 Yes [id number] Take one [facility] MINE 25 mg 0-14 tablet ity of tablet 00:00: three [place] 00 times a Medical day as Branch needed for anxiety ARIPiprazol 2018-05 Yes [id number] 15mg Take 1 [facility] e 15 mg 0-14 tablet by [facility] of tablet 00:00: mouth [place] 00 daily. Medical Branch diphenhydrA 2018-05 Yes [id number] Take one [facility] MINE 25 mg 0-14 tablet ity of tablet 00:00: three [place] 00 times a Medical day as Branch needed for anxiety ARIPiprazol 2018-05 Yes [id number] 15mg Take 1 [facility] e 15 mg 0-14 tablet by [facility] of tablet 00:00: mouth [place] 00 daily. Medical Branch diphenhydrA 2018-05 Yes [id number] Take one [facility] MINE 25 mg 0-14 tablet ity of tablet 00:00: three [place] 00 times a Medical day as Branch needed for anxiety ARIPiprazol 2018-05 Yes [id number] 15mg Take 1 [facility] e 15 mg 0-14 tablet by [facility] of tablet 00:00: mouth [place] 00 daily. Medical Branch diphenhydrA 2018-05 Yes [id number] Take one [facility] M[facility] 25 mg 0-14 tablet ity of tablet 00:00: three [place] 00 times a Medical day as Branch needed for anxiety ARIPiprazol 2018-05 Yes [id number] 15mg Take 1 [facility] e 15 mg 0-14 tablet by [facility] of tablet 00:00: mouth [place] 00 daily. Medical Branch diphenhydrA 2018-05 Yes [id number] Take one [facility] MINE 25 mg 0-14 tablet ity of tablet 00:00: three [place] 00 times a Medical day as Branch needed for anxiety ARIPiprazol 2018-05 Yes [id number] 15mg Take 1 [facility] e 15 mg 0-14 tablet by [facility] of tablet 00:00: mouth [place] 00 daily. Medical Branch diphenhydrA 2018-05 Yes [id number] Take one [facility] MINE 25 mg 0-14 tablet ity of tablet 00:00: three [place] 00 times a Medical day as Branch needed for anxiety ARIPiprazol 2018-05 Yes [id number] 15mg Take 1 [facility] e 15 mg 0-14 tablet by [facility] of tablet 00:00: mouth [place] 00 daily. Medical Branch diphenhydrA 2018-05 Yes [id number] Take one [facility] M[facility] 25 mg 0-14 tablet ity of tablet 00:00: three [place] 00 times a Medical day as Branch needed for anxiety ARIPiprazol 2018-05 Yes [id number] 15mg Take 1 [facility] e 15 mg 0-14 tablet by ity of tablet 00:00: mouth [place] 00 daily. Medical Branch diphenhydrA 2018-05 Yes [id number] Take one [facility] MINE 25 mg 0-14 tablet ity of tablet 00:00: three [place] 00 times a Medical day as Branch needed for anxiety ARIPiprazol 2018-05 Yes [id number] 15mg Take 1 [facility] e 15 mg 0-14 tablet by ity of tablet 00:00: mouth [place] 00 daily. Medical Branch diphenhydrA 2018-05 Yes [id number] Take one [facility] MINE 25 mg 0-14 tablet ity of tablet 00:00: three [place] 00 times a Medical day as Branch needed for anxiety ARIPiprazol 2018-05 Yes [id number] 15mg Take 1 [facility] e 15 mg 0-14 tablet by ity of tablet 00:00: mouth [place] 00 daily. Medical Branch diphenhydrA 2018-05 Yes [id number] Take one [facility] M[facility] 25 mg 0-14 tablet ity of tablet 00:00: three [place] 00 times a Medical day as Branch needed for anxiety ARIPiprazol 2018-05 Yes [id number] 15mg Take 1 [facility] e 15 mg 0-14 tablet by [facility]y of tablet 00:00: mouth [place] 00 daily. Medical Branch diphenhydrA 2018-05 Yes [id number] Take one [facility] MINE 25 mg 0-14 tablet ity of tablet 00:00: three [place] 00 times a Medical day as Branch needed for anxiety ARIPiprazol 2018-05 Yes [id number] 15mg Take 1 [facility] e 15 mg 0-14 tablet by ity of tablet 00:00: mouth [place] 00 daily. Medical Branch diphenhydrA 2018-05 Yes [id number] Take one [facility] MINE 25 mg 0-14 tablet ity of tablet 00:00: three [place] 00 times a Medical day as Branch needed for anxiety ARIPiprazol 2018-05 Yes [id number] 15mg Take 1 [facility] e 15 mg 0-14 tablet by [facility]y of tablet 00:00: mouth [place] 00 daily. Medical Branch diphenhydrA 2018-05 Yes [id number] Take one [facility] 25 mg 0-14 tablet ity of tablet 00:00: three [place] 00 times a Medical day as Branch needed for anxiety ARIPiprazol 2018-05 Yes [id number] 15mg Take 1 [facility] e 15 mg 0-14 tablet by ity of tablet 00:00: mouth [place] 00 daily. Medical Branch diphenhydrA 2018-05 Yes [id number] Take one [facility] MINE 25 mg 0-14 tablet ity of tablet 00:00: three [place] 00 times a Medical day as Branch needed for anxiety ARIPiprazol 2018-05 Yes [id number] 15mg Take 1 [facility] e 15 mg 0-14 tablet by ity of tablet 00:00: mouth [place] 00 daily. Medical Branch diphenhydrA 2018-05 Yes [id number] Take one [facility] MINE 25 mg 0-14 tablet ity of tablet 00:00: three [place] 00 times a Medical day as Branch needed for anxiety ARIPiprazol 2018-05 Yes [id number] 15mg Take 1 [facility] e 15 mg 0-14 tablet by ity of tablet 00:00: mouth [place] 00 daily. Medical Branch diphenhydrA 2018-05 Yes [id number] Take one [facility] MINE 25 mg 0-14 tablet ity of tablet 00:00: three [place] 00 times a Medical day as Branch needed for anxiety ARIPiprazol 2018-05 Yes [id number] 15mg Take 1 [facility] e 15 mg 0-14 tablet by ity of tablet 00:00: mouth [place] 00 daily. Medical Branch diphenhydrA 2018-05 Yes [id number] Take one [facility] M[facility] 25 mg 0-14 tablet ity of tablet 00:00: three [place] 00 times a Medical day as Branch needed for anxiety ARIPiprazol 2018-05 Yes [id number] 15mg Take 1 [facility] e 15 mg 0-14 tablet by [facility]y of tablet 00:00: mouth [place] 00 daily. Medical Branch diphenhydrA 2018-05 Yes [id number] Take one [facility] MINE 25 mg 0-14 tablet ity of tablet 00:00: three [place] 00 times a Medical day as Branch needed for anxiety ARIPiprazol 2018-05 Yes [id number] 15mg Take 1 [facility] e 15 mg 0-14 tablet by ity of tablet 00:00: mouth [place] 00 daily. Medical Branch diphenhydrA 2018-05 Yes [id number] Take one [facility] MINE 25 mg 0-14 tablet ity of tablet 00:00: three [place] 00 times a Medical day as Branch needed for anxiety ARIPiprazol 2018-05 Yes [id number] 15mg Take 1 [facility] e 15 mg 0-14 tablet by ity of tablet 00:00: mouth [place] 00 daily. Medical Branch diphenhydrA 2018-05 Yes [id number] Take one [facility] MINE 25 mg 0-14 tablet ity of tablet 00:00: three [place] 00 times a Medical day as Branch needed for anxiety ARIPiprazol 2018-05 Yes [id number] 15mg Take 1 [facility] e 15 mg 0-14 tablet by ity of tablet 00:00: mouth [place] 00 daily. Medical Branch diphenhydrA 2018-05 Yes [id number] Take one [facility] MINE 25 mg 0-14 tablet ity of tablet 00:00: three [place] 00 times a Medical day as Branch needed for anxiety ARIPiprazol 2018-05 Yes [id number] 15mg Take 1 [facility] e 15 mg 0-14 tablet by [facility]y of tablet 00:00: mouth [place] 00 daily. Medical Branch diphenhydrA 2018- Yes [id number] Take one [facility] MINE 25 mg 0-14 tablet ity of tablet 00:00: three [place] 00 times a Medical day as Branch needed for anxiety diphenhydrA 2018-05 Yes [id number] Take one [facility] 25 mg 0-14 tablet ity of tablet 00:00: three [place] 00 times a Medical day as Branch needed for anxiety diphenhydrA 2018-05 Yes [id number] Take one [facility] MINE 25 mg 0-14 tablet ity of tablet 00:00: three [place] 00 times a Medical day as Branch needed for anxiety diphenhydrA 2018-05 Yes [id number] Take one [facility] 25 mg 0-14 tablet ity of tablet 00:00: three [place] 00 times a Medical day as Branch needed for anxiety diphenhydrA 2018-05 Yes [id number] Take one [facility] MINE 25 mg 0-14 tablet ity of tablet 00:00: three [place] 00 times a Medical day as Branch needed for anxiety diphenhydrA 2018-05 Yes [id number] Take one [facility] MINE 25 mg 0-14 tablet ity of tablet 00:00: three [place] 00 times a Medical day as Branch needed for anxiety diphenhydrA 2018-05 Yes [id number] Take one [facility] MINE 25 mg 0-14 tablet ity of tablet 00:00: three [place] 00 times a Medical day as Branch needed for anxiety diphenhydrA 2018-05 Yes [id number] Take one [facility] MINE 25 mg 0-14 tablet ity of tablet 00:00: three [place] 00 times a Medical day as Branch needed for anxiety diphenhydrA 2018-05 Yes [id number] Take one [facility] MINE 25 mg 0-14 tablet ity of tablet 00:00: three [place] 00 times a Medical day as Branch needed for anxiety diphenhydrA 2018-05 Yes [id number] Take one [facility] MINE 25 mg 0-14 tablet ity of tablet 00:00: three [place] 00 times a Medical day as Branch needed for anxiety diphenhydrA 2018-05 Yes [id number] Take one [facility] MINE 25 mg 0-14 tablet ity of tablet 00:00: three [place] 00 times a Medical day as Branch needed for anxiety desvenlafax 2018-05 Yes 1{tbl} Take 1 [facility] ine 0-03 tablet by ity of succinate 00:00: mouth [place] (PRISTIQ) 00 daily. [facility] 25 mg Tb24 to take Branch with 50mg Pristiq for a total of 75mg desvenlafax 2018-05 Yes 1{tbl} Take 1 [facility] kit[facility] ine 0-03 tablet by ity of succinate 00:00: mouth [place] (PRISTIQ) 00 daily. Pt [facility] al 25 mg Tb24 to take Branch with 50mg Pristiq for a total of 75mg desvenlafax 2018-05 Yes 1{tbl} Take 1 [facility] kit[facility] ine 0-03 tablet by ity of succinate 00:00: mouth [place] (PRISTIQ) 00 daily. Pt Medic al 25 mg Tb24 to take Branch with 50mg Pristiq for a total of 75mg desvenlafax 2018-05 Yes 1{tbl} Take 1 [facility] kit[facility] ine 0-03 tablet by ity of succinate 00:00: mouth [place] (PRISTIQ) 00 daily. Pt Medic al 25 mg Tb24 to take Branch with 50mg Pristiq for a total of 75mg desvenlafax 2019- Yes 1{tbl} Take 1 [facility] kit[facility] ine 0-03 tablet by ity of succinate 00:00: mouth [place] (PRISTIQ) 00 daily. Pt Medic al 25 mg Tb24 to take Branch with 50mg Pristiq for a total of 75mg desvenlafax 2019- Yes 1{tbl} Take 1 [facility] kitty ine 0-03 tablet by ity of succinate 00:00: mouth [place] (PRISTIQ) 00 daily. Pt Medic al 25 mg Tb24 to take Branch with 50mg Pristiq for a total of 75mg desvenlafax 2018- Yes 1{tbl} Take 1 [facility] kitty ine 0-03 tablet by ity of succinate 00:00: mouth [place] (PRISTIQ) 00 daily. Pt Medic al 25 mg Tb24 to take Branch with 50mg Pristiq for a total of 75mg desvenlafax 2019- Yes 1{tbl} Take 1 [facility] kitty ine 0-03 tablet by ity of succinate 00:00: mouth [place] (PRISTIQ) 00 daily. Pt Medic al 25 mg Tb24 to take Branch with 50mg Pristiq for a total of 75mg desvenlafax 2019- Yes 1{tbl} Take 1 [facility] kitty ine 0-03 tablet by ity of succinate 00:00: mouth [place] (PRISTIQ) 00 daily. Pt Medic al 25 mg Tb24 to take Branch with 50mg Pristiq for a total of 75mg desvenlafax 2019- Yes 1{tbl} Take 1 [facility] kitty ine 0-03 tablet by ity of succinate 00:00: mouth [place] (PRISTIQ) 00 daily. Pt Medic al 25 mg Tb24 to take Branch with 50mg Pristiq for a total of 75mg desvenlafax 2019- Yes 1{tbl} Take 1 [facility] kitty ine 0-03 tablet by ity of succinate 00:00: mouth [place] (PRISTIQ) 00 daily. Pt Medic al 25 mg Tb24 to take Branch with 50mg Pristiq for a total of 75mg desvenlafax 2019 2020- No 1{tbl} Take 1 [facility] ine 0-03 03-05 tablet by ity of succinate 00:00: 00:00 mouth [place] (PRISTIQ) 00 :00 daily. Pt Medic al 25 mg Tb24 to take Branch with 50mg Pristiq for a total of 75mg proMETHazin 2019-0 Yes 25mg Take 1 [facility] ers e 25 mg 9-12 tablet by ity of tablet 00:00: mouth [place] 00 every 6 Medical (six) Branch hours as needed for Nausea and Vomiting (N/V). proMETHazin 2019-0 Yes 25mg Take 1 [facility] ers e 25 mg 9-12 tablet by ity of tablet 00:00: mouth [place] 00 every 6 Medical (six) Branch hours as needed for Nausea and Vomiting (N/V). proMETHazin 2019-0 Yes 25mg Take 1 [facility] ers e 25 mg 9-12 tablet by ity of tablet 00:00: mouth [place] 00 every 6 Medical (six) Branch hours as needed for Nausea and Vomiting (N/V). proMETHazin 2019-0 Yes 25mg Take 1 [facility] ers e 25 mg 9-12 tablet by ity of tablet 00:00: mouth [place] 00 every 6 Medical (six) Branch hours as needed for Nausea and Vomiting (N/V). proMETHazin 2019-0 Yes 25mg Take 1 [facility] ers e 25 mg 9-12 tablet by ity of tablet 00:00: mouth [place] 00 every 6 Medical (six) Branch hours as needed for Nausea and Vomiting (N/V). proMETHazin 2019-0 Yes 25mg Take 1 [facility] ers e 25 mg 9-12 tablet by ity of tablet 00:00: mouth [place] 00 every 6 Medical (six) Branch hours as needed for Nausea and Vomiting (N/V). proMETHazin 2019-0 Yes 25mg Take 1 [facility] ers e 25 mg 9-12 tablet by ity of tablet 00:00: mouth [place] 00 every 6 Medical (six) Branch hours as needed for Nausea and Vomiting (N/V). 2019-0 Yes Take by Unive rs vit 8-29 mouth. ity of calc,iron,f 13:25: [place] olic 05 Medical ( Branch VITAMIN ORAL) nutritional 2019-0 Yes Take by Un kitty supplement/ 829 mouth. ity of fiber 13:25: [place] (JUICE PLUS 05 Medical FIBRE ORAL) Branch [address] Yes Take by Unive rs vit 12-29 mouth. ity of calc,iron,f 13:25: [place] olic 05 Medical ( Branch VITAMIN ORAL) nutritional 0 Yes Take by Un kitty supplement/ 12-29 mouth. ity of fiber 13:25: [place] (JUICE PLUS 05 Medical FIBRE ORAL) Branch 0 Yes Take by Unive rs vit 12-29 mouth. ity of calc,iron,f 13:25: [facility] 05 Medical ( Branch VITAMIN ORAL) nutritional 0 Yes Take by Un kitty supplement/ 12-29 mouth. ity of fiber 13:25: [place] (JUICE PLUS 05 Medical FIBRE ORAL) [place] Yes Take by Unive rs vit 12-29 mouth. ity of calc,iron,f 13:25: [facility] 05 Medical ( Branch VITAMIN ORAL) nutritional Yes Take by Un kitty supplement/ 12-29 mouth. ity of fiber 13:25: [place] (JUICE PLUS 05 Medical FIBRE ORAL) [place] Yes Take by Unive rs vit 12-29 mouth. ity of calc,iron,f 13:25: [facility] 05 Medical ( Branch VITAMIN ORAL) nutritional 0 Yes Take by Un kitty supplement/ 12-29 mouth. ity of fiber 13:25: [place] (JUICE PLUS 05 Medical FIBRE ORAL) [place] Yes Take by Unive rs vit 12-29 mouth. ity of calc,iron,f 13:25: [place] olic 05 Medical ( Branch VITAMIN ORAL) nutritional 0 Yes Take by Un kitty supplement/ 12-29 mouth. ity of fiber 13:25: [place] (JUICE PLUS 05 Medical FIBRE ORAL) Branch 0 Yes Take by Unive rs vit 8 mouth. ity of calc,iron,f 13:25: [place] olic 05 Medical ( Branch VITAMIN ORAL) nutritional [address] Yes Take by Un kitty supplement/ 8 mouth. ity of fiber 13:25: [place] (JUICE PLUS 05 Medical FIBRE ORAL) [place] 0 Yes Take by Unive rs vit 829 mouth. ity of calc,iron,f 13:25: [facility] 05 Medical ( Branch VITAMIN ORAL) nutritional 2019-0 Yes Take by Un kitty supplement/ 829 mouth. ity of fiber 13:25: [place] (JUICE PLUS 05 Medical FIBRE ORAL) Branch 2019-0 Yes Take by Unive rs vit 8 mouth. ity of calc,iron,f 13:25: [place] [address] Medical ( Branch VITAMIN ORAL) nutritional 2019-0 Yes Take by Un kitty supplement/ 829 mouth. ity of fiber 13:25: [place] (JUICE PLUS 05 Medical FIBRE ORAL) Branch 2019-0 Yes Take by Unive rs vit 8 mouth. ity of calc,iron,f 13:25: [facility] 05 Medical ( Branch VITAMIN ORAL) nutritional 2019-0 Yes Take by Un kitty supplement/ 12-29 mouth. ity of fiber 13:25: [place] (JUICE PLUS 05 Medical FIBRE ORAL) [place] Yes Take by Unive rs vit 8 mouth. ity of calc,iron,f 13:25: [place] [address] Medical ( Branch VITAMIN ORAL) nutritional [address] Yes Take by Un kitty supplement/ 12-29 mouth. ity of fiber 13:25: [place] (JUICE PLUS 05 Medical FIBRE ORAL) [place] 0 Yes Take by Unive rs vit 8 mouth. ity of calc,iron,f 13:25: [facility] 05 Medical ( Branch VITAMIN ORAL) nutritional 2019-0 Yes Take by Un kitty supplement/ 12-29 mouth. ity of fiber 13:25: [place] (JUICE PLUS 05 Medical FIBRE ORAL) [place] 2019-0 Yes Take by Unive rs vit 8 mouth. ity of calc,iron,f 13:25: [place] [address] Medical ( Branch VITAMIN ORAL) 2019-0 Yes Take by Unive rs vit 8-29 mouth. ity of calc,iron,f 13:25: [place] olic 05 Medical ( Branch VITAMIN ORAL) nutritional 2019-0 Yes Take by Un kitty supplement/ 829 mouth. ity of fiber 13:25: [place] (JUICE PLUS 05 Medical FIBRE ORAL) [place] nutritional 2019-0 Yes Take by Un kitty supplement/ 829 mouth. ity of fiber 13:25: [place] (JUICE PLUS 05 Medical FIBRE ORAL) Branch 2019-0 Yes Take by Unive rs vit 8-29 mouth. ity of calc,iron,f 13:25: [facility] 05 Medical ( Branch VITAMIN ORAL) nutritional 2019-0 Yes Take by Un kitty supplement/ 8 mouth. ity of fiber 13:25: [place] (JUICE PLUS 05 Medical FIBRE ORAL) [place] [address] Yes Take by Unive rs vit 8-29 mouth. ity of calc,iron,f 13:25: [facility] Medical ( Branch VITAMIN ORAL) nutritional [address] Yes Take by Un kitty supplement/ 8-29 mouth. ity of fiber 13:25: [place] (JUICE PLUS 05 Medical FIBRE ORAL) Branch 0 Yes Take by Unive rs vit 8-29 mouth. ity of calc,iron,f 13:25: [facility] 05 Medical ( Branch VITAMIN ORAL) nutritional [address] Yes Take by Un kitty supplement/ 8-29 mouth. ity of fiber 13:25: [place] (JUICE PLUS 05 Medical FIBRE ORAL) [place] Yes Take by Unive rs vit 8-29 mouth. ity of calc,iron,f 13:25: [facility] 05 Medical ( Branch VITAMIN ORAL) nutritional 0 Yes Take by Un kitty supplement/ 8 mouth. ity of fiber 13:25: [place] (JUICE PLUS 05 Medical FIBRE ORAL) [place] 0 Yes Take by Unive rs vit 8 mouth. ity of calc,iron,f 13:25: [facility] 05 Medical ( Branch VITAMIN ORAL) nutritional 2019-0 Yes Take by Un kitty supplement/ 8 mouth. ity of fiber 13:25: [place] (JUICE PLUS 05 Medical FIBRE ORAL) [place] [address] Yes Take by Unive rs vit 8-29 mouth. ity of calc,iron,f 13:25: [place] olic 05 Medical ( Branch VITAMIN ORAL) nutritional 2019-0 Yes Take by Un kitty supplement/ 829 mouth. ity of fiber 13:25: [place] (JUICE PLUS 05 Medical FIBRE ORAL) [place] 2019-0 Yes Take by Unive rs vit 8-29 mouth. ity of calc,iron,f 13:25: [facility] 05 Medical ( Branch VITAMIN ORAL) [address] Yes Take by Unive rs vit 8-29 mouth. ity of calc,iron,f 13:25: [facility] 05 Medical ( Branch VITAMIN ORAL) nutritional 2019-0 Yes Take by Un kitty supplement/ 12-29 mouth. ity of fiber 13:25: [place] (JUICE PLUS 05 Medical FIBRE ORAL) Branch nutritional 2019-0 Yes Take by Un kitty supplement/ 12-29 mouth. ity of fiber 13:25: [place] (JUICE PLUS 05 Medical FIBRE ORAL) [place] 0 Yes Take by Unive rs vit 12-29 mouth. ity of calc,iron,f 13:25: [place] [address] Medical ( Branch VITAMIN ORAL) nutritional 2019-0 Yes Take by Un kitty supplement/ 12-29 mouth. ity of fiber 13:25: [place] (JUICE PLUS 05 Medical FIBRE ORAL) [place] 0 Yes Take by Unive rs vit 12-29 mouth. ity of calc,iron,f 13:25: [place] [address] Medical ( Branch VITAMIN ORAL) nutritional 0 Yes Take by Un kitty supplement/ 12-29 mouth. ity of fiber 13:25: [place] (JUICE PLUS 05 Medical FIBRE ORAL) [place] 0 Yes Take by Unive rs vit 12-29 mouth. ity of calc,iron,f 13:25: [place] [address] Medical ( Branch VITAMIN ORAL) nutritional 0 Yes Take by Un kitty supplement/ 12-29 mouth. ity of fiber 13:25: [place] (JUICE PLUS 05 Medical FIBRE ORAL) [place] 0 Yes Take by Unive rs vit 12-29 mouth. ity of calc,iron,f 13:25: [facility] 05 Medical ( Branch VITAMIN ORAL) nutritional 2019-0 Yes Take by Un kitty supplement/ 12-29 mouth. ity of fiber 13:25: [place] (JUICE PLUS 05 Medical FIBRE ORAL) [place] [address] Yes Take by Unive rs vit 12-29 mouth. ity of calc,iron,f 13:25: [facility] 05 Medical ( Branch VITAMIN ORAL) nutritional 2019-0 Yes Take by Un kitty supplement/ 12-29 mouth. ity of fiber 13:25: [place] (JUICE PLUS 05 Medical FIBRE ORAL) [place] [address] Yes Take by Unive rs vit 8 mouth. ity of calc,iron,f 13:25: [place] [address] Medical ( Branch VITAMIN ORAL) nutritional 2019-0 Yes Take by Un kitty supplement/ 8-29 mouth. ity of fiber 13:25: [place] (JUICE PLUS 05 Medical FIBRE ORAL) Branch 2019-0 Yes Take by Unive rs vit 8-29 mouth. ity of calc,iron,f 13:25: [place] olic 05 Medical ( Branch VITAMIN ORAL) nutritional 2019-0 Yes Take by Un kitty supplement/ 8-29 mouth. ity of fiber 13:25: [place] (JUICE PLUS 05 Medical FIBRE ORAL) Branch [address] Yes Take by Unive rs vit 8 mouth. ity of calc,iron,f 13:25: [facility] 05 Medical ( Branch VITAMIN ORAL) nutritional 2019-0 Yes Take by Un kitty supplement/ 829 mouth. ity of fiber 13:25: [place] (JUICE PLUS 05 Medical FIBRE ORAL) Branch 0 Yes Take by Unive rs vit 8 mouth. ity of calc,iron,f 13:25: [place] [address] Medical ( Branch VITAMIN ORAL) nutritional [address] Yes Take by Un kitty supplement/ 8 mouth. ity of fiber 13:25: [place] (JUICE PLUS 05 Medical FIBRE ORAL) [place] 0 Yes Take by Unive rs vit 8 mouth. ity of calc,iron,f 13:25: [facility] 05 Medical ( Branch VITAMIN ORAL) nutritional 2019-0 Yes Take by Un kitty supplement/ 29 mouth. ity of fiber 13:25: [place] (JUICE PLUS 05 Medical FIBRE ORAL) [place] 0 Yes Take by Unive rs vit 8 mouth. ity of calc,iron,f 13:25: [place] olic 05 Medical ( Branch VITAMIN ORAL) nutritional [address] Yes Take by Un kitty supplement/ 829 mouth. ity of fiber 13:25: [place] (JUICE PLUS 05 Medical FIBRE ORAL) Branch 2019-0 Yes Take by Unive rs vit 829 mouth. ity of calc,iron,f 13:25: [place] olic 05 Medical ( Branch VITAMIN ORAL) 2019-0 Yes Take by Unive rs vit 8-29 mouth. ity of calc,iron,f 13:25: [place] olic 05 Medical ( Branch VITAMIN ORAL) nutritional [address] Yes Take by Un kitty supplement/ 8-29 mouth. ity of fiber 13:25: [place] (JUICE PLUS 05 Medical FIBRE ORAL) Branch nutritional 2019-0 Yes Take by Un kitty supplement/ 829 mouth. ity of fiber 13:25: [place] (JUICE PLUS 05 Medical FIBRE ORAL) Branch 2019-0 Yes Take by Unive rs vit 8 mouth. ity of calc,iron,f 13:25: [facility] 05 Medical ( Branch VITAMIN ORAL) nutritional [address] Yes Take by Un kitty supplement/ 829 mouth. ity of fiber 13:25: [place] (JUICE PLUS 05 Medical FIBRE ORAL) Branch 0 Yes Take by Unive rs vit 8 mouth. ity of calc,iron,f 13:25: [facility] Medical ( Branch VITAMIN ORAL) nutritional [address] Yes Take by Un kitty supplement/ 829 mouth. ity of fiber 13:25: [place] (JUICE PLUS 05 Medical FIBRE ORAL) [place] Yes Take by Unive rs vit 8 mouth. ity of calc,iron,f 13:25: [place] [address] Medical ( Branch VITAMIN ORAL) nutritional 0 Yes Take by Un kitty supplement/ 8 mouth. ity of fiber 13:25: [place] (JUICE PLUS 05 Medical FIBRE ORAL) [place] 0 Yes Take by Unive rs vit 8 mouth. ity of calc,iron,f 13:25: [place] [address] Medical ( Branch VITAMIN ORAL) 0 Yes Take by Unive rs vit 8 mouth. ity of calc,iron,f 13:25: [place] [address] Medical ( Branch VITAMIN ORAL) nutritional [address] Yes Take by Un kitty supplement/ 12-29 mouth. ity of fiber 13:25: [place] (JUICE PLUS 05 Medical FIBRE ORAL) [place] nutritional [address] Yes Take by Un kitty supplement/ 829 mouth. ity of fiber 13:25: [place] (JUICE PLUS 05 Medical FIBRE ORAL) Branch 2019-0 Yes Take by Unive rs vit 8-29 mouth. ity of calc,iron,f 13:25: [facility] 05 Medical ( Branch VITAMIN ORAL) nutritional [address] Yes Take by Un kitty supplement/ 8-29 mouth. ity of fiber 13:25: [place] (JUICE PLUS 05 Medical FIBRE ORAL) Branch [address] Yes Take by Unive rs vit 8-29 mouth. ity of calc,iron,f 13:25: [place] olic 05 Medical ( Branch VITAMIN ORAL) nutritional Yes Take by Un kitty supplement/ 12-29 mouth. ity of fiber 13:25: [place] (JUICE PLUS 05 Medical FIBRE ORAL) Branch methocarbam Yes Univer s ol 750 mg 8-28 ity of tablet 00:00: [place] [facility] methocarbam 0 Yes Univer s ol 750 mg 8-28 ity of tablet 00:00: [place] [address] [facility] methocarbam 0 Yes Univer s ol 750 mg 8-28 ity of tablet 00:00: [place] [address] [facility] methocarbam 0 Yes Univer s ol 750 mg 8-28 ity of tablet 00:00: [place] [address] [facility] Branch methocarbam 0 Yes Univer s ol 750 mg 8-28 ity of tablet 00:00: [address] Branch methocarbam 0 Yes Univer s ol 750 mg 8-28 ity of tablet 00:00: [place] [address] [facility] methocarbam 0 Yes Univer s ol 750 mg 8-28 ity of tablet 00:00: [place] [address] [facility] methocarbam 0 Yes Univer s ol 750 mg 8-28 ity of tablet 00:00: [place] [address] [facility] methocarbam 0 Yes Univer s ol 750 mg 8-28 ity of tablet 00:00: [place] [address] [facility] Branch methocarbam 0 Yes Univer s ol 750 mg 8-28 ity of tablet 00:00: [place] [address] [facility] methocarbam 0 Yes Univer s ol 750 mg 8-28 ity of tablet 00:00: [place] [address] [facility] methocarbam 0 Yes Univer s ol 750 mg 8-28 ity of tablet 00:00: [place] [address] [facility] methocarbam 0 Yes Univer s ol 750 mg 8-28 ity of tablet 00:00: [place] [address] [facility] methocarbam 0 Yes Univer s ol 750 mg 8-28 ity of tablet 00:00: [place] [address] [facility] methocarbam 0 Yes Univer s ol 750 mg 8-28 ity of tablet 00:00: [place] [address] [facility] methocarbam 0 Yes Univer s ol 750 mg 8-28 ity of tablet 00:00: [place] 00 [facility] methocarbam 2019-0 Yes Univer s ol 750 mg 8-28 ity of tablet 00:00: [place] [facility] methocarbam 2019-0 Yes Univer s ol 750 mg 8-28 ity of tablet 00:00: [place] [facility] methocarbam 2019-0 Yes Univer s ol 750 mg 8-28 ity of tablet 00:00: [place] [address] [facility] methocarbam 2019-0 Yes Univer s ol 750 mg 8-28 ity of tablet 00:00: [place] [address] [facility] methocarbam 2019-0 Yes Univer s ol 750 mg 8-28 ity of tablet 00:00: [place] [address] [facility] methocarbam 2019-0 Yes Univer s ol 750 mg 8-28 ity of tablet 00:00: [place] [address] [facility] methocarbam 2019-0 Yes Univer s ol 750 mg 8-28 ity of tablet 00:00: [place] [address] [facility] methocarbam 2019-0 Yes Univer s ol 750 mg 8-28 ity of tablet 00:00: [place] [address] [facility] methocarbam 2019-0 Yes Univer s ol 750 mg 8-28 ity of tablet 00:00: [place] [address] [facility] methocarbam 2019-0 Yes Univer s ol 750 mg 8-28 ity of tablet 00:00: [place] [address] [facility] methocarbam 2019-0 Yes Univer s ol 750 mg 8-28 ity of tablet 00:00: [place] [address] [facility] methocarbam 2019-0 Yes Univer s ol 750 mg 8-28 ity of tablet 00:00: [place] [facility] methocarbam 2019-0 Yes Univer s ol 750 mg 8-28 ity of tablet 00:00: [place] [facility] methocarbam 2019-0 Yes Univer s ol 750 mg 8-28 ity of tablet 00:00: [place] [address] [facility] methocarbam 2019-0 Yes Univer s ol 750 mg 8-28 ity of tablet 00:00: [place] [address] [facility] methocarbam 2019-0 Yes Univer s ol 750 mg 8-28 ity of tablet 00:00: [place] [address] [facility] methocarbam 2019-0 Yes Univer s ol 750 mg 8-28 ity of tablet 00:00: [place] [address] [facility] methocarbam 2019-0 Yes Univer s ol 750 mg 8-28 ity of tablet 00:00: [place] 00 [facility] methocarbam 2019-0 Yes Univer s ol 750 mg 8-28 ity of tablet 00:00: [place] [facility] methocarbam 2019-0 Yes Univer s ol 750 mg 8-28 ity of tablet 00:00: [place] 00 [facility] methocarbam 2019-0 Yes Univer s ol 750 mg 8-28 ity of tablet 00:00: [place] [facility] methocarbam 2019-0 Yes Univer s ol 750 mg 8-28 ity of tablet 00:00: [place] [facility] methocarbam 2019-0 Yes Univer s ol 750 mg 8-28 ity of tablet 00:00: [place] 00 [facility] methocarbam 2019-0 Yes Univer s ol 750 mg 8-28 ity of tablet 00:00: [place] [facility] methocarbam 2019-0 Yes Univer s ol 750 mg 8-28 ity of tablet 00:00: [place] [facility] methocarbam 2019-0 Yes Univer s ol 750 mg 8-28 ity of tablet 00:00: [place] 00 [facility] methocarbam 2019-0 2020- No Unive rs ol 750 mg 8-28 04-21 ity of tablet 00:00: 00:00 [place] 00 :00 Medical Branch dextroamphe 2019-0 Yes Univer s tamine-amph 8-26 ity of etamine 20 00:00: [place] mg tablet 00 Medical Branch dextroamphe 2019-0 Yes Univer s tamine-amph 8-26 ity of etamine 20 00:00: [place] mg tablet 00 Medical Branch dextroamphe 2019-0 Yes Univer s tamine-amph 8-26 ity of etamine 20 00:00: [place] mg tablet 00 Medical Branch dextroamphe 2019-0 Yes Univer s tamine-amph 8-26 ity of etamine 20 00:00: [place] mg tablet 00 Medical Branch dextroamphe 2019-0 Yes Univer s tamine-amph 8-26 ity of etamine 20 00:00: [place] mg tablet 00 Medical Branch dextroamphe 2019-0 Yes Univer s tamine-amph 8-26 ity of etamine 20 00:00: [place] mg tablet 00 Medical Branch dextroamphe 2019-0 Yes Univer s tamine-amph 8-26 ity of etamine 20 00:00: [place] mg tablet 00 Medical Branch dextroamphe 2019-0 Yes Univer s tamine-amph 8-26 ity of etamine 20 00:00: [place] mg tablet 00 Medical Branch dextroamphe 2019-0 Yes Univer s tamine-amph 8-26 ity of etamine 20 00:00: [place] mg tablet 00 Medical Branch dextroamphe 2019-0 Yes Univer s tamine-amph 8-26 ity of etamine 20 00:00: [place] mg tablet 00 Medical Branch dextroamphe 2019-0 Yes Univer s tamine-amph 8-26 ity of etamine 20 00:00: [place] mg tablet 00 [facility]:00: [place] mg tablet 00 Medical Branch dextroamphe 2019-0 Yes Univ s tamine-amph 8-26 ity of etamine 20 00:00: [place] mg tablet 00 [facility]he 2019-[facility] 20 00:00: [place] mg tablet 00 [facility]he 2019-[facility] 20 00:00: [place] mg tablet 00 Medical Branch dextroamphe 2019-0 Yes Univer s tamine-amph 8-26 ity of etamine 20 00:00: [place] mg tablet 00 Medical Branch dextroamphe 2019-0 Yes Univ s tamine-amph 8-26 ity of etamine 20 00:00: [place] mg tablet 00 Medical Branch dextroamphe 2019-0 Yes Univer s tamine-amph 8-26 ity of etamine 20 00:00: [place] mg tablet 00 Medical Branch dextroamphe 2019-0 Yes Univer s tamine-amph 8-26 ity of etamine 20 00:00: [place] mg tablet 00 Medical Branch dextroamphe 2019-0 Yes Univer s tamine-amph 8-26 ity of etamine 20 00:00: [place] mg tablet 00 Medical Branch dextroamphe 2019-0 Yes Univ s tamine-amph 8-26 ity of etamine 20 00:00: [place] mg tablet 00 Medical Branch dextroamphe 2019-0 Yes Univer s tamine-amph 8-26 ity of etamine 20 00:00: [place] mg tablet 00 Medical Branch dextroamphe 2019-0 Yes Univer s tamine-amph 8-26 ity of etamine 20 00:00: [place] mg tablet 00 Medical Branch dextroamphe 2019-0 Yes Univer s tamine-amph 8-26 ity of etamine 20 00:00: [place] mg tablet 00 Medical Branch dextroamphe 2019-0 Yes Univer s tamine-amph 8-26 ity of etamine 20 00:00: [place] mg tablet 00 [facility]he 2019-[facility] 00:00: [place] mg tablet 00 Medical Branch dextroamphe 2019-0 Yes [facility] s tamine-amph 8-26 ity of etamine 20 00:00: [place] mg tablet 00 Medical Branch dextroamphe 2019-0 Yes [facility] s tamine-amph 8-26 ity of etamine 20 00:00: [place] mg tablet 00 Medical Branch dextroamphe 2019-0 Yes [facility] s tamine-amph 8-26 ity of etamine 20 00:00: [place] mg tablet 00 Medical Branch dextroamphe 2019-0 Yes [facility] s tamine-amph 8-26 ity of etamine 20 00:00: [place] mg tablet 00 Medical Branch dextroamphe 2019-0 Yes [facility] s tamine-amph 8-26 ity of etamine 20 00:00: [place] mg tablet 00 Medical Branch dextroamphe 2019-0 Yes [facility] s tamine-amph 8-26 ity of etamine 20 00:00: [place] mg tablet 00 Medical Branch dextroamphe 2019-0 Yes [facility] s tamine-amph 8-26 ity of etamine 20 00:00: [place] mg tablet 00 Medical Branch dextroamphe 2019-0 Yes Univ s tamine-amph 8-26 ity of etamine 20 00:00: [place] mg tablet 00 Medical Branch dextroamphe 2019-0 Yes Univ s tamine-amph 8-26 ity of etamine 20 00:00: [place] mg tablet 00 Medical Branch dextroamphe 2019-0 Yes Univ s tamine-amph 8-26 ity of etamine 20 00:00: [place] mg tablet 00 Medical Branch dextroamphe 2019-0 Yes Univer s tamine-amph 8-26 ity of etamine 20 00:00: [place] mg tablet Medical Branch dextroamphe 2019-0 Yes Univer s tamine-amph 8-26 ity of etamine 20 00:00: [place] mg tablet Medical Branch dextroamphe 2019-0 Yes Univer s tamine-amph 8-26 ity of etamine 20 00:00: [place] mg tablet Medical Branch dextroamphe 2019-0 Yes Univer s tamine-amph 8-26 ity of etamine 20 00:00: [place] mg tablet Medical Branch dextroamphe 2019-0 Yes Univer s tamine-amph 8-26 ity of etamine 20 00:00: [place] mg tablet Medical Branch dextroamphe 20190 Yes Univer s tamine-amph 8-26 ity of etamine 20 00:00: [place] mg tablet Medical Branch dextroamphe 2019-0 2020- No Unive rs tamine-amph 8- 04-21 ity of etamine 20 00:00: 00:00 [place] mg tablet 00 : [facility] Branch clonazePAM 2019-0 Yes Univers 1 mg tablet 8-22 ity of 00:00: [place] [facility] clonazePAM 2019-0 Yes Univers 1 mg tablet 8-22 ity of 00:00: [place] [facility] clonazePAM 2019-0 Yes Univers 1 mg tablet 8-22 ity of 00:00: [place] [facility] Branch clonazePAM 2019-0 Yes Univers 1 mg tablet 8-22 ity of 00:00: [place] [facility] Branch clonazePAM 2019-0 Yes Univers 1 mg tablet 8-22 ity of 00:00: [place] [facility] Branch clonazePAM 2019-0 Yes Univers 1 mg tablet 8-22 ity of 00:00: [place] [facility] Branch clonazePAM 2019-0 Yes Univers 1 mg tablet 8-22 ity of 00:00: [place] [facility] Branch clonazePAM 2019-0 Yes Univers 1 mg tablet 8-22 ity of 00:00: [facility] Branch clonazePAM 2019-0 Yes Univers 1 mg tablet 8-22 ity of 00:00: [place] [facility] Branch clonazePAM 2019-0 Yes Univers 1 mg tablet 8-22 ity of 00:00: [place] [facility] Branch clonazePAM 2019-0 Yes Univers 1 mg tablet 8-22 ity of 00:00: [place] [address] Medical Branch clonazePAM 2019-0 Yes Univers 1 mg tablet 8-22 ity of 00:00: [place] [address] Medical Branch clonazePAM 2019-0 Yes Univers 1 mg tablet 8-22 ity of 00:00: [place] [address] [facility] Branch clonazePAM 2019-0 Yes Univers 1 mg tablet 8-22 ity of 00:00: [place] [address] [facility] Branch clonazePAM 2019-0 Yes Univers 1 mg tablet 8-22 ity of 00:00: [place] [address] [facility] Branch clonazePAM 2019-0 Yes Univers 1 mg tablet 8-22 ity of 00:00: [place] [address] [facility] Branch clonazePAM 2019-0 Yes Univers 1 mg tablet 8-22 ity of 00:00: [place] [address] [facility] Branch clonazePAM 2019-0 Yes Univers 1 mg tablet 8-22 ity of 00:00: [place] [address] [facility] Branch clonazePAM 2019-0 Yes Univers 1 mg tablet 8-22 ity of 00:00: [address] Branch clonazePAM 2019-0 Yes Univers 1 mg tablet 8-22 ity of 00:00: [place] [address] Medical Branch clonazePAM 2019-0 Yes Univers 1 mg tablet 8-22 ity of 00:00: [address] Branch clonazePAM 2019-0 Yes Univers 1 mg tablet 8-22 ity of 00:00: [address] Branch clonazePAM 2019-0 Yes Univers 1 mg tablet 8-22 ity of 00:00: [place] [address] Medical Branch clonazePAM 2019-0 Yes Univers 1 mg tablet 8-22 ity of 00:00: [place] [address] [facility] Branch clonazePAM 2019-0 Yes Univers 1 mg tablet 8-22 ity of 00:00: [place] [address] [facility] Branch clonazePAM 2019-0 Yes Univers 1 mg tablet 8-22 ity of 00:00: [place] [address] [facility] Branch clonazePAM 2019-0 Yes Univers 1 mg tablet 8-22 ity of 00:00: [place] [address] [facility] Branch clonazePAM 2019-0 Yes Univers 1 mg tablet 8-22 ity of 00:00: [place] [address] [facility] Branch clonazePAM 2019-0 Yes Univers 1 mg tablet 8-22 ity of 00:00: [place] [address] [facility] Branch clonazePAM 2019-0 Yes Univers 1 mg tablet 8-22 ity of 00:00: [place] [address] [facility] Branch clonazePAM 2019-0 Yes Univers 1 mg tablet 8-22 ity of 00:00: [place] [address] [facility] Branch clonazePAM 2019-0 Yes Univers 1 mg tablet 8-22 ity of 00:00: [address] clonazePAM 2019-0 Yes Univers 1 mg tablet 8-22 ity of 00:00: [address] PRISTIQ 50 2019-0 Yes Univers mg 24 hr 8-20 ity of tablet 00:00: [address] Branch PRISTIQ 50 2018-0 Yes Univers mg 24 hr 8-20 ity of tablet 00:00: [address] PRISTIQ 50 2019-0 Yes Univers mg 24 hr 8-20 ity of tablet 00:00: [address] PRISTIQ 50 2019-0 Yes Univers mg 24 hr 8-20 ity of tablet 00:00: [address] PRISTIQ 50 2019-0 Yes Univers mg 24 hr 8-20 ity of tablet 00:00: [address] PRISTIQ 50 2018-0 Yes Univers mg 24 hr 8-20 ity of tablet 00:00: [address] PRISTIQ 50 2018-0 Yes Univers mg 24 hr 8-20 ity of tablet 00:00: [address] PRISTIQ 50 2018-0 Yes Univers mg 24 hr 8-20 ity of tablet 00:00: [address] PRISTIQ 50 2019-0 Yes Univers mg 24 hr 8-20 ity of tablet 00:00: [address] PRISTIQ 50 2019-0 Yes Univers mg 24 hr 8-20 ity of tablet 00:00: [address] PRISTIQ 50 2018-0 Yes Univers mg 24 hr 8-20 ity of tablet 00:00: [address] PRISTIQ 50 2019-0 Yes Univers mg 24 hr 8-20 ity of tablet 00:00: [address] PRISTIQ 50 2019-0 Yes Univers mg 24 hr 8-20 ity of tablet 00:00: [address] PRISTIQ 50 2019-0 Yes Univers mg 24 hr 8-20 ity of tablet 00:00: [address] PRISTIQ 50 2019-0 Yes Univers mg 24 hr 8-20 ity of tablet 00:00: [address] Branch PRISTIQ 50 2019-0 Yes Univers mg 24 hr 8-20 ity of tablet 00:00: [address] PRISTIQ 50 2019-0 Yes Univers mg 24 hr 8-20 ity of tablet 00:00: [place] 00 [facility] PRISTIQ 50 2019-0 Yes Univers mg 24 hr 8-20 ity of tablet 00:00: [place] [facility] PRISTIQ 50 2019-0 Yes Univers mg 24 hr 8-20 ity of tablet 00:00: [address] PRISTIQ 50 2019-0 Yes Univers mg 24 hr 8-20 ity of tablet 00:00: [address] PRISTIQ 50 2018-0 Yes Univers mg 24 hr 8-20 ity of tablet 00:00: [address] PRISTIQ 50 2018-0 2020- No Univer s mg 24 hr 8-20 03-05 ity of tablet 00:00: 00:00 [place] 00 :00 [facility] ARIPiprazol 2019-0 Yes Univer s e 15 mg 8-16 ity of tablet 00:00: [address] ARIPiprazol 2019-0 Yes Univer s e 15 mg 8-16 ity of tablet 00:00: [address] ARIPiprazol 2019-0 Yes Univer s e 15 mg 8-16 ity of tablet 00:00: [address] ARIPiprazol 2019-0 Yes Univer s e 15 mg 8-16 ity of tablet 00:00: [address] ARIPiprazol 2019-0 Yes Univer s e 15 mg 8-16 ity of tablet 00:00: [address] ARIPiprazol 2019-0 Yes Univer s e 15 mg 8-16 ity of tablet 00:00: [address] ARIPiprazol 2019-0 Yes Univer s e 15 mg 8-16 ity of tablet 00:00: [address] ARIPiprazol 2019-0 Yes Univer s e 15 mg 8-16 ity of tablet 00:00: [address] ARIPiprazol 2019-0 Yes Univer s e 15 mg 8-16 ity of tablet 00:00: [address] ARIPiprazol 2019-0 Yes Univer s e 15 mg 8-16 ity of tablet 00:00: [address] Loestrin 24 Loestrin 24 0 Yes Pal [address] [facility] Kareem Reedkes - 00:[facility] ABILIFY 15 2017-0 Yes Univers mg tablet 8-20 ity of 00:00: [place] [facility] 15 2017-0 Yes Univers mg tablet 8-20 ity of 00:00: [place] [facility] 2017-0 Yes Univers mg tablet 8-20 ity of 00:00: [place] [facility] 2017-0 Yes Univers mg tablet 8-20 ity of 00:00: [place] [facility] 2017-0 Yes Univers mg tablet 8-20 ity of 00:00: [place] [facility] 2017-0 Yes Univers mg tablet 8-20 ity of 00:00: [place] [facility] 2017-0 Yes Univers mg tablet 8-20 ity of 00:00: [place] [facility] 2017-0 Yes Univers mg tablet 8-20 ity of 00:00: [place] [facility] Immunizations Ordered Filled Immunization Date Status Comments [facility] e Immunization Name Name TDAP (ADACEL) 2019-06-09 Completed University of VACCINE 00:00:00 [facility] TDAP (ADACEL) 2019-06-09 Completed University of VACCINE 00:00:00 [facility] TDAP (ADACEL) 2019-06-09 Completed University of VACCINE 00:00:00 [facility] TDAP (ADACEL) 2019-06-09 Completed University of VACCINE 00:00:00 [facility] TDAP (ADACEL) 2019-06-09 Completed University of VACCINE 00:00:00 [facility] TDAP (ADACEL) 2019-06-09 Completed University of VACCINE 00:00:00 [facility] TDAP (ADACEL) 2019-06-09 Completed University of VACCINE 00:00:00 [facility] TDAP (ADACEL) 2019-06-09 Completed University of VACCINE 00:00:00 [facility] TDAP (ADACEL) 2019-06-09 Completed University of VACCINE 00:00:00 [facility] TDAP (ADACEL) 2019-06-09 Completed University of VACCINE 00:00:00 [facility] TDAP (ADACEL) 2019-06-09 Completed University of VACCINE 00:00:00 [facility] TDAP (ADACEL) 2019-06-09 Completed University of VACCINE 00:00:00 [facility] TDAP (ADACEL) 2019-06-09 Completed University of VACCINE 00:00:00 [place] [facility] TDAP (ADACEL) 2019-06-09 Completed University of VACCINE 00:00:00 [place] [facility] TDAP (ADACEL) 2019-06-09 Completed University of VACCINE 00:00:00 [place] [facility] TDAP (ADACEL) 2019-06-09 Completed University of VACCINE 00:00:00 [place] [facility] TDAP (ADACEL) 2019-06-09 Completed University of VACCINE 00:00:00 [place] [facility] TDAP (ADACEL) 2019-06-09 Completed University of VACCINE 00:00:00 [place] [facility] TDAP (ADACEL) 2019-06-09 Completed University of VACCINE 00:00:00 [place] [facility] TDAP (ADACEL) 2019-06-09 Completed University of VACCINE 00:00:[address] [facility] Branch TDAP (ADACEL) 2019-06-09 Completed University of VACCINE 00:00:[address] [facility] TDAP (ADACEL) 2019-06-09 Completed University of VACCINE 00:00:[address] [facility] TDAP (ADACEL) 2019-06-09 Completed University of VACCINE 00:00:[address] [facility] TDAP (ADACEL) 2019-06-09 Completed University of VACCINE 00:00:[address] [facility] TDAP (ADACEL) 2019-06-09 Completed University of VACCINE 00:00:[address] [facility] TDAP (ADACEL) 2019-06-09 Completed University of VACCINE 00:00:[address] [facility] TDAP (ADACEL) 2019-06-09 Completed University of VACCINE 00:00:[address] [facility] TDAP (ADACEL) 2019-06-09 Completed University of VACCINE 00:00:00 [place] [facility] TDAP (ADACEL) 2019-06-09 Completed University of VACCINE 00:00:00 [place] [facility] TDAP (ADACEL) 2019-06-09 Completed University of VACCINE 00:00:00 [place] [facility] TDAP (ADACEL) 2019-06-09 Completed University of VACCINE 00:00:00 [place] [facility] TDAP (ADACEL) 2019-06-09 Completed University of VACCINE 00:00:00 [place] [facility] TDAP (ADACEL) 2019-06-09 Completed University of VACCINE 00:00:00 [place] [facility] TDAP (ADACEL) 2019-06-09 Completed University of VACCINE 00:00:00 [place] [facility] TDAP (ADACEL) 2019-06-09 Completed University of VACCINE 00:00:00 [place] [facility] TDAP (ADACEL) 2019-06-09 Completed University of VACCINE 00:00:00 [place] [facility] TDAP (ADACEL) 2019-06-09 Completed University of VACCINE 00:00:00 [place] [facility] TDAP (ADACEL) 2019-06-09 Completed University of VACCINE 00:00:00 [place] [facility] TDAP (ADACEL) 2019-06-09 Completed University of VACCINE 00:00:00 [place] [facility] TDAP (ADACEL) 2019-06-09 Completed University of VACCINE 00:00:00 [place] [facility] TDAP (ADACEL) 2019-06-09 Completed University of VACCINE 00:00:00 [place] [facility] TDAP (ADACEL) 2019-06-09 Completed University of VACCINE 00:00:00 [place] [facility] TDAP (ADACEL) 2019-06-09 Completed University of VACCINE 00:00:00 [place] [facility] TDAP (ADACEL) 2019-06-09 Completed University of VACCINE 00:00:00 [place] [facility] TDAP (ADACEL) 2019-06-09 Completed University of VACCINE 00:00:00 [place] [facility] TDAP (ADACEL) 2019-06-09 Completed University of VACCINE 00:00:00 [place] [facility] TDAP (ADACEL) 2019-06-09 Completed University of VACCINE 00:00:00 [place] [facility] TDAP (ADACEL) 2019-06-09 Completed University of VACCINE 00:00:00 [place] [facility] TDAP (ADACEL) 2019-06-09 Completed University of VACCINE 00:00:00 [place] [facility] TDAP (ADACEL) 2019-06-09 Completed University of VACCINE 00:00:00 [place] [facility] TDAP (ADACEL) 2019-06-09 Completed University of VACCINE 00:00:00 [place] [facility] TDAP (ADACEL) 2019-06-09 Completed University of VACCINE 00:00:00 [place] [facility] TDAP (ADACEL) 2019-06-09 Completed University of VACCINE 00:00:00 [place] [facility] TDAP (ADACEL) 2019-06-09 Completed University of VACCINE 00:00:00 [place] [facility] TDAP (ADACEL) 2019-06-09 Completed University of VACCINE 00:00:00 [place] [facility] TDAP (ADACEL) 2019-06-09 Completed University of VACCINE 00:00:00 [place] [facility] TDAP (ADACEL) 2019-06-09 Completed University of VACCINE 00:00:[address] [facility] Branch TDAP (ADACEL) 2019-06-09 Completed University of VACCINE 00:00:00 [place] [facility] TDAP (ADACEL) 2019-06-09 Completed University of VACCINE 00:00:[address] [facility] TDAP (ADACEL) 2019-06-09 Completed University of VACCINE 00:00:[address] [facility] TDAP (ADACEL) 2019-06-09 Completed University of VACCINE 00:00:[address] [facility] TDAP (ADACEL) 2019-06-09 Completed University of VACCINE 00:00:[address] [facility] TDAP (ADACEL) 2019-06-09 Completed University of VACCINE 00:00:[address] [facility] TDAP (ADACEL) 2019-06-09 Completed University of VACCINE 00:00:[address] [facility] TDAP (ADACEL) 2019-06-09 Completed University of VACCINE 00:00:00 [facility] TDAP (ADACEL) 2019-06-09 Completed University of VACCINE 00:00:00 [facility] TDAP (ADACEL) 2019-06-09 Completed University of VACCINE 00:00:00 [facility] TDAP (ADACEL) 2019-06-09 Completed University of VACCINE 00:00:00 [facility] TDAP (ADACEL) 2019-06-09 Completed University of VACCINE 00:00:00 [facility] Vital Signs Vital Name Observation Time Observation Value Comments Source Systolic blood 2020-05-10 17:18:00 123 mm[Hg] Univer sity of pressure [facility] Diastolic blood 2020-05-10 17:18:00 81 mm[Hg] Unive rsity of pressure [facility] Heart rate 2020-05-10 17:18:00 96 /min [facility] Body height 2020-05-10 17:17:00 167.6 cm [facility] Body weight 2020-05-10 17:17:00 85.276 kg [facility] BMI 2020-05-10 17:17:00 30.34 kg/m2 [facility] Systolic blood 2020-04-11 20:42:00 126 mm[Hg] Univer sity of pressure [facility] Diastolic blood 2020-04-11 20:42:00 78 mm[Hg] Unive rsity of pressure [facility] Heart rate 2020-04-11 20:42:00 98 /min [facility] [place] [facility] Body temperature 2020-04-11 20:42:00 36.56 [facility]ana [facility] [place] [facility] Respiratory rate 2020-04-11 20:42:00 18 /min [facility] Body height 2020-04-11 20:42:00 167.6 cm [facility] [place] [facility] Body weight 2020-04-11 20:42:00 85.276 kg [facility] [place] [facility] BMI 2020-04-11 20:42:00 30.34 kg/m2 [facility] Systolic blood 2019-09-08 13:43:00 140 mm[Hg] Univer sity of pressure [facility] Diastolic blood 2019-09-08 13:43:00 93 mm[Hg] Unive rsity of pressure [facility] Heart rate 2019-09-08 13:42:00 99 /min [facility] Respiratory rate 2019-09-08 13:42:00 18 /min [facility] [place] [facility] [place] Body weight 2019-09-08 13:42:00 87 kg [facility] BMI 2019-09-08 13:42:00 30.96 kg/m2 Univers[facility] ty of [facility] Systolic blood 2019-08-22 21:00:00 124 mm[Hg] [facility] Diastolic blood 2019-08-22 21:00:00 71 mm[Hg] Unive rsity of pressure [facility] Heart rate 2019-08-22 21:00:00 70 /min [facility] Body temperature 2019-08-22 21:00:00 36.5 Sana Univ ersity of [facility] Respiratory rate 2019-08-22 21:00:00 18 /min [facility] Oxygen saturation in 2019-08-22 21:00:00 99 /min [facility] Arterial blood by [facility] Pulse oximetry Branch Body height 2019-08-21 11:44:00 167.6 cm [facility] Body weight 2019-08-21 11:44:00 95.936 kg [facility] BMI 2019-08-21 11:44:00 34.14 kg/m2 [facility] Systolic blood 2019-08-10 18:05:00 120 mm[Hg] [facility] Diastolic blood 2019-08-10 18:05:00 72 mm[Hg] [facility]ive rsity [facility] Heart rate 2019-08-10 18:05:00 100 /min [facility] Body temperature 2019-08-10 18:05:00 36.94 Sana [facility] Respiratory rate 2019-08-10 18:05:00 18 /min [facility] Body height 2019-08-10 18:05:00 167.6 cm [facility] Body weight 2019-08-10 18:05:00 94.348 kg [facility] BMI 2019-08-10 18:05:00 33.57 kg/m2 [facility] Systolic blood 2019-08-17 19:10:00 105 mm[Hg] [facility] Diastolic blood 2019-08-17 19:10:00 65 mm[Hg] [facility]ive [facility]ity [facility] Heart rate 2019-08-17 19:10:00 108 /min [facility] Body temperature 2019-08-17 19:10:00 36.94 Sana [facility] Respiratory rate 2019-08-17 19:10:00 18 /min [facility] Body height 2019-08-17 19:10:00 167.6 cm [facility] Body weight 2019-08-17 19:10:00 94.802 kg [facility] BMI 2019-08-17 19:10:00 33.73 kg/m2 [facility] Systolic blood 2019-08-03 14:06:00 126 mm[Hg] [facility] Diastolic blood 2019-08-03 14:06:00 78 mm[Hg] [facility]ive [facility]ity [facility] Heart rate 2019-08-03 14:06:00 80 /min [facility] Body temperature 2019-08-03 14:06:00 37 Sana [facility] Respiratory rate 2019-08-03 14:06:00 18 /min [facility] Body height 2019-08-03 14:06:00 167.6 cm [facility] Body weight 2019-08-03 14:06:00 93.441 kg [facility] BMI 2019-08-03 14:06:00 33.25 kg/m2 [facility] Systolic blood 2019-07-20 14:05:00 115 mm[Hg] [facility] Diastolic blood 2019-07-20 14:05:00 73 mm[Hg] [facility] Heart rate 2019-07-20 14:05:00 87 /min [facility] Body temperature 2019-07-20 14:05:00 36.61 Sana [facility] Respiratory rate 2019-07-20 14:05:00 18 /min [facility] Body height 2019-07-20 14:05:00 167.6 cm [facility] Body weight 2019-07-20 14:05:00 93.713 kg [facility] BMI 2019-07-20 14:05:00 33.35 kg/m2 [facility] Systolic blood 2019-07-06 19:26:00 126 mm[Hg] [facility] Diastolic blood 2019-07-06 19:26:00 73 mm[Hg] [facility] Heart rate 2019-07-06 19:26:00 89 /min [facility] Body temperature 2019-07-06 19:26:00 36.67 Sana [facility] Respiratory rate 2019-07-06 19:26:00 18 /min [facility] Body height 2019-07-06 19:26:00 167.6 cm [facility] Body weight 2019-07-06 19:26:00 92.987 kg [facility] BMI 2019-07-06 19:26:00 33.09 kg/m2 [facility] Systolic blood 2019-06-09 14:58:00 107 mm[Hg] [facility] Diastolic blood 2019-06-09 14:58:00 75 mm[Hg] [facility]ive [facility]ity [facility] Heart rate 2019-06-09 14:58:00 108 /min [facility] Body temperature 2019-06-09 14:58:00 36.56 Sana [facility] Respiratory rate 2019-06-09 14:58:00 18 /min [facility] Body height 2019-06-09 14:58:00 167.6 cm [facility] Body weight 2019-06-09 14:58:00 89.812 kg [facility] BMI 2019-06-09 14:58:00 31.96 kg/m2 [facility] Systolic blood 2019-01-19 13:44:00 113 mm[Hg] [facility] Diastolic blood 2019-01-19 13:44:00 77 mm[Hg] [facility]ive [facility] Heart rate 2019-01-19 13:44:00 69 /min [facility] Body temperature 2019-01-19 13:44:00 36.61 Sana [facility] Respiratory rate 2019-01-19 13:44:00 18 /min [facility] Body height 2019-01-19 13:44:00 167.6 cm [facility] Body weight 2019-01-19 13:44:00 87.544 kg [facility] BMI 2019-01-19 13:44:00 31.15 kg/m2 [facility] Systolic blood 2018-12-29 13:18:00 130 mm[Hg] [facility] Diastolic blood 2018-12-29 13:18:00 86 mm[Hg] [facility]ity [facility] Heart rate 2018-12-29 13:18:00 69 /min [facility] Body temperature 2018-12-29 13:12:00 36.72 Sana [facility] Respiratory rate 2018-12-29 13:12:00 20 /min [facility] Body height 2018-12-29 13:12:00 167.6 cm [facility] Body weight 2018-12-29 13:12:00 86.365 kg [facility] BMI 2018-12-29 13:12:00 30.73 kg/m2 [facility] Systolic blood 2020-10-23 19:27:00 150 mm[Hg] [facility] Diastolic blood 2020-10-23 19:27:00 107 mm[Hg] [facility] Heart rate 2020-10-23 19:27:00 109 /min [facility] Systolic blood 2020-05-10 17:18:00 123 mm[Hg] [facility] Diastolic blood 2020-05-10 17:18:00 81 mm[Hg] Unive rsity of pressure [facility] Heart rate 2020-05-10 17:18:00 96 /min [facility]i ty of [facility] Body height 2020-05-10 17:17:00 167.6 cm [facility]i ty of [facility] Body weight 2020-05-10 17:17:00 85.276 kg [facility] of [facility] BMI 2020-05-10 17:17:00 30.34 kg/m2 [facility] Body temperature 2020-04-11 20:42:00 36.56 Sana [facility] Respiratory rate 2020-04-11 20:42:00 18 /min Univ ersity of [facility] Systolic blood 2020-02-28 16:00:00 109 mm[Hg] Univer sity of pressure [facility] Diastolic blood 2020-02-28 16:00:00 90 mm[Hg] Unive rsity of pressure [facility] Heart rate 2020-02-28 16:00:00 90 /min [facility] Body weight 2020-02-28 16:00:00 87.091 kg [facility] BMI 2020-02-28 16:00:00 30.99 kg/m2 [facility] of [facility] Systolic blood 2019-09-08 13:43:00 140 mm[Hg] Univer sity of pressure [facility] Diastolic blood 2019-09-08 13:43:00 93 mm[Hg] Unive rsity of pressure [facility] Heart rate 2019-09-08 13:42:00 99 /min [facility] of [facility] Respiratory rate 2019-09-08 13:42:00 18 /min [facility] [place] [facility] [place] Body weight 2019-09-08 13:42:00 87 kg [facility] BMI 2019-09-08 13:42:00 30.96 kg/m2 [facility] Systolic blood 2019-08-22 21:00:00 124 mm[Hg] Univer sity of pressure [facility] Diastolic blood 2019-08-22 21:00:00 71 mm[Hg] Unive rsity of pressure [facility] Heart rate 2019-08-22 21:00:00 70 /min [facility] Body temperature 2019-08-22 21:00:00 36.5 Sana Univ ersity of [facility] Respiratory rate 2019-08-22 21:00:00 18 /min [facility] Oxygen saturation in 2019-08-22 21:00:00 99 /min [facility] of Arterial blood by [facility] Pulse oximetry Branch Body height 2019-08-21 11:44:00 167.6 cm [facility] Body weight 2019-08-21 11:44:00 95.936 kg [facility] BMI 2019-08-21 11:44:00 34.14 kg/m2 [facility] of [facility] Systolic blood 2019-07-20 14:05:00 115 mm[Hg] [facility] Diastolic blood 2019-07-20 14:05:00 73 mm[Hg] Unive rsity of pressure [facility] Heart rate 2019-07-20 14:05:00 87 /min [facility] Body temperature 2019-07-20 14:05:00 36.61 Sana Univ ersity of [facility] Respiratory rate 2019-07-20 14:05:00 18 /min Univ ersity of [facility] Body height 2019-07-20 14:05:00 167.6 cm [facility] Body weight 2019-07-20 14:05:00 93.713 kg [facility] BMI 2019-07-20 14:05:00 33.35 kg/m2 [facility] ty of [facility] Systolic blood 2019-02-13 13:08:00 126 mm[Hg] Univer sity of pressure [facility] Diastolic blood 2019-02-13 13:08:00 89 mm[Hg] [facility] of pressure [facility] Heart rate 2019-02-13 13:08:00 86 /min [facility] Respiratory rate 2019-02-13 13:08:00 18 /min [facility] Body height 2019-02-13 13:08:00 167.6 cm [facility] Body weight 2019-02-13 13:08:00 86.501 kg [facility] BMI 2019-02-13 13:08:00 30.78 kg/m2 [facility] Body temperature 2019-02-07 14:30:00 37 Sana [facility] Procedures Procedure Date / Time Performing Clinician Source Performed XR LUMBAR SPINE 2 VW 2020-05-10 18:07:16 Lara Dietrich [facility] REFERRAL- 2020-04-09 06:01:00 Doctor Unassigned, No [facility] [place] REQUEST/RESPONSE Name Medical Branch REFERRAL- 2020-03-18 06:01:00 Doctor Unassigned, No [facility] [place] REQUEST/RESPONSE Name Medical Branch CPS / APS / FPS 2019-09-20 05:01:00 Doctor Unassigned, No [facility] [place] Name Medical [facility] CPS / APS / FPS 2019-09-20 05:01:00 Doctor Unassigned, No [facility] [place] ADC / LCC - DRUG SCREEN 2019-09-08 20:14:00 [facility] [place] [facility] - DRUG SCREEN 2019-09-08 20:14:00 Leelee Wadsworth [facility] [place] POCT URINALYSIS W/O 2019-09-08 16:00:00 Leelee Wadsworth [facility] SPECIFIC GRAVITY Medical Branch POCT URINALYSIS W/O 2019-09-08 16:00:00 Leelee Wadsworth kimmie [facility] SPECIFIC GRAVITY Medical Branch CBC WITH DIFFERENTIAL 2019-09-08 14:36:00 Leelee Wadsworth [facility] COMP. METABOLIC PANEL 2019-09-08 14:36:00 [id number] [place] URIC ACID 2019-09-08 14:36:00 Leelee Wadsworth [facility] CBC WITH DIFF 2019-09-08 14:36:00 Ermelinda [facility] AGREEMENTS AUTHORIZATIONS 2019-09-08 05:01:00 Doctor Unassigned, No [facility] AND IRREVOCABLE Name Medical Branch ASSIGNMENTS (FORM 2001) AGREEMENTS AUTHORIZATIONS 2019-09-08 05:01:00 Doctor Unassigned, No [facility] AND IRREVOCABLE Name Medical Branch ASSIGNMENTS (FORM 2001) AUTHORIZATION FOR RELEASE 2019-08-28 05:01:00 Doctor Unassigned, No [facility] OF [facility] CBC WITH DIFFERENTIAL 2019-08-22 08:50:00 Devon [facility] CBC WITH DIFFERENTIAL 2019-08-22 08:50:00 Devon Deidre [facility] SURGICAL PATHOLOGY EXAM 2019-08-22 00:10:00 Leelee Wadsworth [facility] CENTRAL NEURAXIAL BLOCK 2019-08-21 23:54:29 Claudette [facility] TUBAL LIGATION 2019-08-21 23:23:00 Ermelinda [facility] TUBAL LIGATION 2019-08-21 23:23:00 Ermelinda [facility] CENTRAL NEURAXIAL BLOCK 2019-08-21 17:36:47 José Luis Chapman [facility] HEPATITIS B SURFACE 2019-08-21 13:30:00 Oscar Fuchs [facility] ANTIGEN [facility] GALV ONLY - SYPHILIS 2019-08-21 13:30:00 [facility] HEPATITIS B SURFACE 2019-08-21 13:30:00 Oscar Fuchs [facility] ANTIGEN [facility] GALV ONLY - SYPHILIS 2019-08-21 13:30:00 [facility]M [facility] HB ABO GROUPING 2019-08-21 13:12:00 Oscar Fuchs [facility] RHO (D) IMMUNE GLOBULIN 2019-08-21 13:12:00 Mirela Tony [facility] 2019-08-21 13:12:00 Oscar Fuchs [facility] RHO (D) IMMUNE GLOBULIN 2019-08-21 13:12:00 Mirela Tony [facility] COVID-19 (PCR MOLECULAR 2019-08-21 11:23:00 Livan Patel [facility]) [facility] [place] CORONAVIRUS COVID-19 2019-08-21 11:23:00 Livan Patel [facility] [place] TESTING [facility] HOSPITAL ADMISSION 2019-08-21 05:01:00 Doctor Unassigned, No [facility] NOTICE OF RESEARCH 2019-08-21 05:01:00 Doctor Unassigned, No Uni [facility] STERILIZATION CONSENT 2019-08-21 05:01:00 Doctor Unassigned, No [facility] FORM [facility] POCT URINALYSIS W/O 2019-08-17 00:00:00 Leelee Wadsworth [facility] SPECIFIC GRAVITY [facility] POCT URINALYSIS W/O 2019-08-17 00:00:00 Leelee Wadsworth [facility] GRAVITY [facility] POCT URINALYSIS W/O 2019-08-10 00:00:00 Leelee Wadsworth [facility] GRAVITY [facility] POCT URINALYSIS W/O 2019-08-10 00:00:00 Leelee Wadsworth [facility] CBC WITH DIFFERENTIAL 2019-08-03 15:18:00 Leelee Wadsworth [facility] & CHLAMYDIA AMPLIFIED 2019-08-03 14:44:00 Leelee [facility]adsworth [facility] GROUP B STREPTOCOCCUS BY 2019-08-03 14:44:00 Leelee Wadsworth [facility] PCR [facility] Branch AGREEMENTS AUTHORIZATIONS 2019-08-03 05:01:00 Doctor Unassigned, No [facility] AND IRREVOCABLE [facility] ASSIGNMENTS (FORM 2001) DSU PRE-OP 2019-08-03 05:01:00 Doctor Unassigned, No [facility] DSU PRE-OP 2019-08-03 05:01:00 Doctor [facility]assigned, No [facility] W/O 2019-08-03 00:00:00 Leelee Wadsworth ity [facility] POCT URINALYSIS W/O 2019-08-03 00:00:00 Leelee Wadsworth y [facility] SECOND AND THIRD 2019-08-01 16:05:00 Doctor Unassigned, No [facility] TRIMESTER ULTRASOUND Name Medical [facility] DME/SUPPLY JUSTIFICATION 2019-07-24 05:01:00 Doctor Unassigned, No [facility] DME/SUPPLY JUSTIFICATION 2019-07-21 05:01:00 Doctor Unassigned, No [facility] STERILIZATION CONSENT 2019-07-20 05:01:00 Doctor Unassigned, No [facility] STERILIZATION CONSENT 2019-07-20 05:01:00 Doctor Unassigned, No [facility] INSURANCE CORRESPONDENCE 2019-07-12 05:01:00 Doctor Unassigned, No [facility] SECOND AND THIRD 2019-07-10 16:02:00 Doctor Unassigned, No [facility] ULTRASOUND [facility] INSURANCE CORRESPONDENCE 2019-07-06 06:01:00 Doctor Unassigned, No [facility] INSURANCE CORRESPONDENCE 2019-07-06 06:01:00 Doctor Unassigned, No [facility] POCT URINALYSIS W/O 2019-07-06 00:00:00 Leelee Wadsworth [facility] POCT URINALYSIS W/O 2019-07-06 00:00:00 Leelee Wadsworth y [facility] SECOND AND THIRD 2019-06-12 16:41:00 Doctor Unassigned, No [facility] TRIMESTER ULTRASOUND [facility] GLUCOSE 1 HOUR POST 2019-06-09 17:19:00 Leelee Wadsworth y [facility] CBC WITH DIFFERENTIAL 2019-06-09 17:19:00 [facility]/2 AG-AB WITH REFLEX 2019-06-09 17:19:00 Leelee Wadsworth U [facility] ADC OR PAMELA ONLY - RPR 2019-06-09 17:19:00 Leelee Wadsworth [facility] HB ABO GROUPING 2019-06-09 17:11:00 Leelee Wadsworth [facility] TDAP (ADACEL) 2019-06-09 16:43:25 Leelee Wadsworth [facility] IMMUNIZATION [facility] TDAP (ADACEL) 2019-06-09 16:43:25 Leelee Wadsworth [facility] IMMUNIZATION [facility] Branch AGREEMENTS AUTHORIZATIONS 2019-06-09 06:01:00 Doctor Unassigned, No [facility] AND IRREVOCABLE Name Medical Branch ASSIGNMENTS (FORM 2001) AGREEMENTS AUTHORIZATIONS 2019-06-09 06:01:00 Doctor Unassigned, No [facility] [place] ASSIGNMENTS (FORM 2001) POCT URINALYSIS W/O 2019-06-09 00:00:00 Leelee Wadsworth [facility] POCT URINALYSIS W/O 2019-06-09 00:00:00 Leelee Wadsworth [facility] SECOND AND THIRD 2019-05-15 16:01:00 Doctor Unassigned, [facility] TRIMESTER ULTRASOUND [facility] POCT URINALYSIS W/O 2019-05-11 00:00:00 Leelee Wadsworth [facility] POCT URINALYSIS W/O 2019-01-30 19:17:00 [facility] SPECIFIC GRAVITY [facility] [place] EXTERNAL PROVIDER RECORDS 2019-01-27 05:01:00 Doctor Unassigned, No [facility] POCT URINALYSIS W/O 2019-01-19 13:47:00 Leelee Wadsworth [facility] SPECIFIC GRAVITY [facility] POCT URINALYSIS W/O 2019-01-19 13:47:00 eLelee Wadsworth [facility] SPECIFIC GRAVITY [facility] WORKUP, BLOOD 2018-12-29 14:40:00 Leelee Wadsworth [facility] ADC OR PAMELA ONLY - RPR 2018-12-29 14:40:00 Leelee Wadsworth [facility] ADC, CLC OR LCC ONLY - 2018-12-29 14:40:00 Leelee Wadsworth [facility] HIV TYPE 1 AND 2 [facility] S[facility]EN WITH P24 CBC WITH DIFFERENTIAL 2018-12-29 14:40:00 Leelee Wadsworth [facility] HCV ANTIBODY 2018-12-29 14:40:00 Leelee Wadsworth [facility] HEPATITIS B SURFACE 2018-12-29 14:40:00 Leelee Wadsworth [facility] ANTIGEN [facility] URINE CULTURE 2018-12-29 14:40:00 Leelee Wadsworth [facility] VZV ANTIBODY SCREEN 2018-12-29 14:40:00 Leelee Wadsworth [facility] RUBELLA SCREEN IGG 2018-12-29 14:40:00 [facility] - [facility] SCREEN 2018-12-29 14:20:00 Leelee Wadsworth [facility] GC & CHLAMYDIA AMPLIFIED 2018-12-29 14:20:00 Leelee Wadsworth [facility] GC & CHLAMYDIA AMPLIFIED 2018-12-29 14:20:00 Leelee Wadsworth [facility] ADC / LCC - DRUG SCREEN 2018-12-29 14:20:00 Leelee Wadsworth [facility] POCT TEST 2018-12-29 13:30:00 Leelee Wadsworth [facility] POCT TEST 2018-12-29 13:30:00 Leelee Wadsworth [facility] PATIENT FINANCIAL 2018-12-29 13:08:12 Doctor Unassigned, No [facility] POLICY Name [facility] NO SHOW OR MISSED 2018-12-29 13:06:33 Doctor Unassigned, No [facility] APPOINTMENT POLICY Name [facility] ACKNOWLEDGEMENT NOTICE OF PRIVACY 2018-12-29 13:06:10 Doctor Unassigned, No [facility] PRACTICES Name [facility] CONSENT TO CONTACT FOR 2018-12-29 13:05:49 Doctor Unassigned, No [facility] VOLUNTARY RESEARCH Name [facility] CONSENT/REFUSAL FOR 2018-12-29 13:05:22 Doctor Unassigned, No Un [facility] DIAGNOSIS AND TREATMENT Name Medical Branch ASSIGNMENT OF BENEFITS 2018-12-29 13:05:00 Doctor Unassigned, No [facility] Name Medical Branch AUTHORIZATION TO RELEASE 2018-12-29 05:01:00 Doctor Unassigned, No [facility] PHI TO [facility] Name Medical Branch Encounters Start End Encounter Admission Attending Care Care Encounter Source Date/Time Date/Time Type Type Clinicians Facility Department ID 2021-02-27 Outpatient [facility] [id number] [facility] 2021-04-01 Outpatient R JELENA [facility] [id number] Univers 13:30:00 13:30:00 NATY [id number] [facility] 2021-04-01 2021-04-01 Outpatient R JELENA [facility] [id number] Univers 13:30:00 13:30:00 NATY [facility] 2021-03-05 2021-03-05 Outpatient R JADA [facility] [id number] Univers 14:30:00 14:30:00 RUBIN [id number] [facility] 2021-03-05 2021-03-05 Outpatient R JADA [facility] [id number] Univers 14:30:00 14:30:00 RUBIN [facility] 2021-02-20 2021-02-20 Outpatient JARROD DEMARCO [facility] [id number] Univers 15:30:00 15:30:00 [id number] [facility] 2021-02-20 2021-02-20 Outpatient R JARROD DEMARCO [facility] [id number] Univers 15:30:00 [facility] 2020-12-30 Outpatient R [facility] [id number] -[id number] Univers 11:00:00 11:00:00 [id number] [facility] 2020-12-30 2020-12-30 Outpatient R SELF, [facility] [id number] Univers 11:00:00 11:00:00 ROSAURA bangura o f [facility] 2020-12-09 2020-12-09 Outpatient R [facility] [id number] -[id number] Univers 08:45:00 08:45:00 [id number] ity of [facility] 2020-12-09 2020-12-09 Outpatient R WILFRIDO, [facility] [id number] Univers 08:45:00 08:45:00 ROSAURA bangura o f [facility] 2020-11-11 2020-11-11 Outpatient R [facility] [id number] -[id number] Univers 08:45:00 08:45:00 [id number] ity of [facility] 2020-11-11 2020-11-11 Outpatient R WILFRIDO, [facility] [id number] Univers 08:45:00 08:45:00 ROSAURA ity o f [facility] 2020-10-23 2020-10-23 Outpatient R [facility] [id number] -[id number] Univers 14:30:00 14:30:00 [id number] ity of [facility] 2020-10-23 2020-10-23 Outpatient R SELF, [facility] [id number] Univers 14:30:00 14:30:00 ROSAURA itkimmie o f [facility] 2020-10-23 2020-10-23 Travel 1.2.840.1 1.2.556.685 [id number] Univers 00:00:00 00:00:00 08752.1.1 350.1.13.10 ity of 3.104.2.7 [place].698 [place].2466[place] 084.8 Medica l .8 [place] 2020-07-29 2020-07-29 Outpatient R [facility] [id number] -[id number] Univers 13:45:00 13:45:00 [id number] ity of [facility] 2020-07-23 2020-07-23 Patient Valdemar, 1.2.840.2 [id number] Univers 00:00:00 00:00:00 Outreach Lloyd 29785.1.1 ity of [place] 3.104.2.7 [place] .3.603069 Medica l .8 [place] 2020-06-13 2020-06-13 Outpatient R HARMONY, [facility] [id number]-20 Univers 11:00:00 11:00:00 LARA [id number] ity of [facility] 2020-06-13 2020-06-13 Outpatient Billy DIETRICH [facility] [id number] Univers 00:00:00 00:00:00 LARA ity [facility] 2020-05-22 2020-05-22 Outpatient Billy HARMONY [facility] [id number]-20 Univers 13:00:00 13:00:00 LARA [id number] ity [facility] 2020-05-10 2020-05-10 [facility] 1.2.840.114 [id number] Univers 11:40:00 23:59:00 Encounter Lara [facility] 350.1.13.10 [place] [id number] [place] [id number] [place] ([facility] 2020-05-10 2020-05-10 Office Lara Dietrich [facility] 1.2.840.11 [id number] Univers 10:52:40 11:07:40 Visit Chris Rangel [facility] 350.1.13.10 [place] [id number] [address] Office Building 2020-05-10 2020-05-10 Outpatient CHRIS [facility] [id number]-20 Univers 10:45:00 10:45:00 RANGEL [id number] ity [facility] 2020-05-10 2020-05-10 Outpatient Billy GILLETTE [facility] [id number] Univers 10:45:00 10:45:00 RANGEL ity [facility] 2020-04-11 2020-04-11 [facility] 1.2.635.075 [id number] Univers 14:34:29 15:07:41 Visit Don Rojas [facility] 350.1.13.10 it y of Surgical 4.2.7.2.686 [place] as Specialti [id number] [address] 2020-04-11 2020-04-11 Outpatient Billy BUTTERFIELD [facility] [id number] 2N-20 Univers 14:45:00 14:45:00 [facility] 2020-04-11 Outpatient R GREER [facility] [id number] Univers 14:45:00 14:45:00 DON [facility] 2020-04-09 2020-04-09 Orders Doctor YAIMA 1.2.840.114 [id number] Univers 00:00:00 00:00:00 Only Unassigned, DANI 350.1.13.10 ity of [place] [facility] 4.2.7.2.686 Vicente as [id number] [address] 2020 2020 Outpatient R CHRIS [facility] [id number]-20 Univers 09:00:00 09:00:00 RANGEL ity [facility] 2020 2020 [facility] [id number] Univers 09:00:00 09:00:00 RANGEL [facility] 2020-03-18 2020-03-18 Orders Doctor YAIMA 1.2.840.114 [id number] Univers 00:00:00 00:00:00 Only Unassigned, DANI 350.1.13.10 ity of [place] [facility] 4.2.7.2.686 [place]ente as [id number] [address] 2020-02-28 2020-02-28 Outpatient R [facility] [id number] -[id number] Univers 13:00:00 13:00:00 [id number] ity [facility] 2020-02-28 2020-02-28 [facility] [id number] Univers 13:00:00 13:00:00 ROSAURA hummel [facility] 2020-01-24 2020-01-24 Outpatient R [facility] [id number] -[id number] Univers 16:00:00 16:00:00 [id number] ity [facility] 2020-01-24 2020-01-24 Outpatient R SELF, [facility] [id number] Univers 16:00:00 16:00:00 ROSAURA hummel [facility] 2019-12-27 2019-12-27 Outpatient R [facility] [id number] -[id number] Univers 16:00:00 16:00:00 [id number] ity [facility] 2019-12-27 2019-12-27 Outpatient R JORDAN, [facility] [id number] Univers 16:00:00 16:00:00 ROSANNA ity of [facility] 2019-12-11 2019-12-11 Outpatient R [facility] [id number] -[id number] Univers 09:30:00 09:30:00 [id number] ity of [facility] 2019-12-11 2019-12-11 Outpatient R SELF, [facility] [id number] Univers 09:30:00 09:30:00 ROSAURA ity o f [facility] 2019-10-25 2019-10-25 Outpatient R [facility] [id number] -[id number] Univers 14:30:00 14:30:00 [id number] ity of [facility] 2019-10-25 2019-10-25 Outpatient R RAMON, [facility] [id number] Univers 14:30:00 14:30:00 MARKUS ity [facility] 2019-10-02 2019-10-02 Telephone Ermelinda, 1.2.840.8 [id number] Univers 00:00:00 00:00:00 Leelee 20826.1.1 ity of 3.104.2.7 [place] .3.748857 Medica l .[address] [place] [address] 2019-09-28 2019-09-28 [facility] [id number]-20 Univers 15:15:00 15:15:00 LEELEE [id number] ity of [facility] 2019-09-28 2019-09-28 [facility] [id number] Univers 15:15:00 15:15:00 LEELEE ity [facility] 2019-09-20 2019-09-20 Orders Doctor 1.2.840.3 [id number] Univers 00:00:00 00:00:00 Only Unassigned, 20153.1.1 ity of [place] 3.104.2.7 [place] .3.272405 Medica l .[address] [place] [address] 2019-09-14 2019-09-14 [facility] [id number]-20 Univers 10:00:00 10:00:00 LEELEE [id number] ity [facility] 2019-09-14 2019-09-14 [facility] [id number] Univers 10:00:00 10:00:00 LEELEE ity of [facility] 2019-09-13 2019-09-13 Travel 1.2.840.1 1.2.575.019 [id number] Univers 00:00:00 00:00:00 41025.1.1 350.1.13.10 ity of 3.104.2.7 [place].3.698 [place] .3.843902 084.8 Medica l .8 [place] 2019-09-09 2019-09-09 Telephone [place], 1.2.840.2 [id number] Univers 00:00:00 00:00:00 Leelee 46152.1.1 ity of 3.104.2.7 [place] .3.289652 Medica l .8 [place] 2019-09-08 2019-09-08 Bandage Maker WadsworthLeelee 1.2.840.1 [id number] Univers 09:28:10 09:43:10 Visit 2, Adc Lab 77662.1.1 i ty of 3.104.2.7 [place] .3.763774 Medica l .8 [place] 2019-09-08 2019-09-08 Routine Wad[place], 1.2.840.9 [id number] Univers 08:33:40 09:21:27 Leelee 11569.1.1 ity of Visit 3.104.2.7 [place] .3.104761 Medica l .8 [place] 2019-09-08 2019-09-08 [facility] [id number] Univers 08:30:00 08:30:00 LEELEE [id number] ity of [facility] 2019-09-08 2019-09-08 [facility] [id number] Univers 08:30:00 08:30:00 LEELEE ity of [facility] 2019-09-08 2019-09-08 Orders Doctor 1.2.840.8 [id number] Univers 00:00:00 00:00:00 Only Unassigned, 99505.1.1 ity of [place] 3.104.2.7 [place] .3.938249 Medica l .8 [place] 2019-09-08 2019-09-08 Travel 1.2.840.1 1.2.039.146 [id number] Univers 00:00:00 00:00:00 81369.1.1 350.1.13.10 ity of 3.104.2.7 4.[place].7.3.698 [place] .[place].448040 084.8 Medica l .8 [place] 2019-09-07 2019-09-07 Outpatient R WADSWORTH, [facility] [id number] Univers 13:45:00 13:45:00 LEELEE ity of [facility] 2019-09-07 2019-09-07 Outpatient R WADSWORTH, [facility] [id number] Univers 13:45:00 13:45:00 LEELEE ity of [facility] 2019-09-06 2019-09-06 Outpatient [facility] [id number] -[id number] Univers 15:15:00 15:15:00 [id number] ity of [facility] 2019-09-06 2019-09-06 Outpatient R RAMON, [facility] [id number] Univers 15:15:00 15:15:00 MARKUS ity of [facility] 2019-09-04 2019-09-04 Telephone [place], 1.2.840.8 [id number] Univers 00:00:00 00:00:00 Leelee 07420.1.1 ity of 3.104.2.7 [place] .3.311769 Medica l .8 [place] 2019-08-31 2019-08-31 Routine Wadsworth, 1.2.840.3 [id number] Univers 09:08:56 10:03:21 Leelee 06699.1.1 ity of Visit 3.104.2.7 [place] .3.815913 Medica l .8 [place] 2019-08-31 2019-08-31 Outpatient R WADSWORTH, [facility] [id number] Univers 08:30:00 08:30:00 LEELEE ity [facility] 2019-08-31 2019-08-31 [facility], 1.2.840.4 [id number] Univers 00:00:00 00:00:00 Leelee 06251.1.1 ity of 3.104.2.7 [place] .3.488024 Medica l .8 [place] 2019-08-21 2019-08-22 [facility], 1.2.840.4 [id number] Univers 06:14:00 16:00:00 Encounter Kayli Mckeon 08486.1.1 it y of 3.104.2.7 [place] .3.781910 Medica l .8 [place] 2019-08-21 2019-08-21 Anesthesia Spike Lopes 1.2.840.0 [id number] Univers 18:39:00 19:35:00 Event Claudette Spike 45030.1.1 ity of 3.104.2.7 [place] .3.794058 Medica l .8 [place] 2019-08-21 2019-08-21 Surgery Wingate, 1.2.840.2 [id number] Univers 18:15:00 19:35:00 Leelee 13415.1.1 ity of 3.104.2.7 [place] .3.845937 Medica l .8 [place] 2019-08-21 2019-08-21 Anesthesia Holder, Mohashlie Km 1.2.840.1 [id number] Univers 12:05:00 15:00:00 Event José Luis Chapman 76976.1.1 ity of 3.104.2.7 [place] .3.383757 Medica l .8 [place] 2019-08-21 2019-08-21 Travel 1.2.840.1 1.2.217.611 [id number] Univers 00:00:00 00:00:00 54354.1.1 350.1.13.10 ity of 3.104.2.7 4.[place]7.3.698 [place] .[place].907953 084.8 Medica l .8 [place] 2019-08-10 2019-08-17 Routine Wingate, 1.2.840.6 [id number] Univers 12:57:36 17:03:23 Leelee 08100.1.1 ity of Visit 3.104.2.7 [place] .3.515635 Medica l .8 [place] 2019-08-17 2019-08-17 Routine Ermelinda, 1.2.840.9 [id number] Univers 14:00:43 14:41:36 Leelee 49851.1.1 ity of Visit 3.104.2.7 [place] .3.830327 Medica l .8 [place] 2019-08-17 2019-08-17 [facility] [id number] Univers 14:00:00 14:00:00 LEELEE [id number] ity of [facility] 2019-08-17 2019-08-17 [id number] Univers 14:00:00 14:00:00 LEELEE ity [facility] 2019-08-17 2019-08-17 Travel 1.2.840.1 1.2.000.162 0006 [id number] Univers 00:00:00 00:00:00 88084.1.1 350.1.13.10 ity of 3.104.2.7 4.[place].7.3.698 [place] .3.422321 084.8 Medica l .8 [place] 2019-08-10 2019-08-10 [facility] [id number] Univers 13:00:00 13:00:00 LEELEE ity of [facility] 2019-08-10 2019-08-10 [facility] [id number] Univers 13:00:00 13:00:00 LEELEE ity of [facility] 2019-08-07 2019-08-07 [facility] [id number]-20 Univers 09:30:00 09:30:00 NILESH ity of [facility] 2019-08-07 2019-08-07 Outpatient [facility] [id number] Univers 09:30:00 09:30:00 NILESH ity of [facility] 2019-08-04 2019-08-04 Patient [facility] 1.2.840.114 [id number] Univers 00:00:00 00:00:00 Secure Msg Leelee Pérez 350.1.13.10 ity of [place] 4.2.7.2.686 Sirisha clayton saige [id number] Ut dical nal [address] [facility] 2019-08-03 2019-08-03 Routine Ermelinda, 1.2.840.0 [id number] Univers 07:53:27 17:32:17 Leelee 70497.1.1 ity of Visit 3.104.2.7 [place] .3.495320 Medica l .8 [place] 2019-08-03 2019-08-03 Bandage Maker Wadsworth, Lucy 1.2.840.1 [id number] Univers 10:14:22 10:29:22 Visit 2, Adc Lab 25406.1.1 i ty of 3.104.2.7 [place] .3.769114 Medica l .8 [place] 2019-08-03 2019-08-03 [facility] [id number] [id number]-20 Univers 09:30:00 09:30:00 LEELEE [id number] ity [facility] 2019-08-03 2019-08-03 [facility] [id number] Univers 09:30:00 09:30:00 LEELEE ity of [facility] 2019-08-03 2019-08-03 Orders Doctor 1.2.840.2 [id number] Univers 00:00:00 00:00:00 Only Unassigned, 63790.1.1 ity of [place] 3.104.2.7 [place] .3.166637 Medica l .8 [place] 2019-08-02 2019-08-02 Outpatient R [facility] [id number] -[id number] Univers 14:30:00 14:30:00 [id number] ity of [facility] 2019-08-02 2019-08-02 [facility] [id number] Univers 14:30:00 14:30:00 MARKUS ity [facility] 2019-08-01 2019-08-01 Bandage Maker Malissa 1.2.840.9 [id number] Univers 10:42:29 11:27:29 Visit Prem R 13339.1.1 ity of 3.104.2.7 [place] .3.217447 Medica l .8 [place] 2019-08-01 2019-08-01 Outpatient R [facility] [id number] -[id number] Univers 10:30:00 10:30:00 [id number] ity of [facility] 2019-08-01 2019-08-01 Outpatient P [facility] [id number] Univers 10:30:00 10:30:00 ity of [facility] 2019-08-01 2019-08-01 Case Rosalina Warner 1.2.840.4 [id number] Univers 00:00:00 00:00:00 Management 66870.1.1 i ty of 3.104.2.7 [place] .3.625085 Medica l .8 [place] 2019-07-27 2019-07-27 Patient Wadsworth, [facility] 1.2.840.114 [id number] Univers 00:00:00 00:00:00 Secure Msg Leelee Pérez 350.1.13.10 ity of [place] 4.2.7.2.686 [place] [id number] Ut dical nal [address] [facility] 2019-07-27 2019-07-27 Telephone W[place], 1.2.840.6 [id number] Univers 00:00:00 00:00:00 Leelee 40442.1.1 ity of 3.104.2.7 [place] .3.585511 Medica l .8 [place] 2019-07-24 2019-07-24 Telephone [place], 1.2.840.9 [id number] Univers 00:00:00 00:00:00 Leelee 77572.1.1 ity of 3.104.2.7 [place] .3.332180 Medica l .8 [place] 2019-07-21 2019-07-21 Telephone W[place], 1.2.840.4 [id number] Univers 00:00:00 00:00:00 Leelee 89296.1.1 ity of 3.104.2.7 [place] .3.315273 Medica l .8 [place] 2019-07-20 2019-07-20 Routine Wadsworth, 1.2.840.8 [id number] Univers 08:43:30 10:05:55 Leelee 11535.1.1 ity of Visit 3.104.2.7 [place] .3.826173 Medica l .8 [place] 2019-07-20 2019-07-20 [facility] [id number] [id number]-20 Univers 08:45:00 08:45:00 LEELEE [id number] ity of [facility] 2019-07-20 2019-07-20 [facility] [id number] Univers 08:45:00 08:45:00 LEELEE ity of [facility] 2019-07-20 2019-07-20 Orders Doctor 1.2.840.8 [id number] Univers 00:00:00 00:00:00 Only Unassigned, 85494.1.1 ity of [place] 3.104.2.7 [place] .3.821800 Medica l .8 [place] 2019-07-19 2019-07-19 Telephone W[place], 1.2.840.8 [id number] Univers 00:00:00 00:00:00 Leelee 12615.1.1 ity of 3.104.2.7 [place] .3.456391 Medica l .8 [place] 2019-07-10 2019-07-10 Bandage Maker Nilesh Ramírez 1.2.840.8 [id number] Univers 10:35:42 11:18:43 Visit Prem Leonardo 07081.1.1 ity of 3.104.2.7 [place] .3.724910 Medica l .8 [place] 2019-07-10 2019-07-10 Outpatient P DESIREE [facility] [id number] Univers 10:30:00 10:30:00 NILESH itkimmie of [facility] 2019-07-10 2019-07-10 Telephone W[place], 1.2.840.2 [id number] Univers 00:00:00 00:00:00 Leelee 77385.1.1 ity of 3.104.2.7 [place] .3.921243 Medica l .8 [place] 2019-07-06 2019-07-06 Routine Wad[place], 1.2.840.4 [id number] Univers 13:11:15 13:59:12 Leelee 12401.1.1 ity of Visit 3.104.2.7 [place] .3.964483 Medica l .8 [place] 2019-07-06 2019-07-06 Outpatient R WADSWORTH, [facility] [id number] [id number]-20 Univers 13:15:00 13:15:00 LEELEE [id number] ity of [facility] 2019-07-06 2019-07-06 [facility] [id number] Univers 13:15:00 13:15:00 LEELEE ity of [facility] 2019-07-06 2019-07-06 Orders Doctor 1.2.840.2 [id number] Univers 00:00:00 00:00:00 Only Unassigned, 03706.1.1 ity of [place] 3.104.2.7 [place] .3.114666 Medica l .8 [place] 2019-07-03 2019-07-03 Telephone [place], 1.2.840.8 [id number] Univers 00:00:00 00:00:00 Leelee 12107.1.1 ity of 3.104.2.7 [place] .3.698650 Medica l .8 [place] 2019-06-27 2019-06-27 Outpatient R JADA, [facility] [id number] 2N-20 Univers 11:15:00 11:15:00 RUBIN [id number] ity of [facility] 2019-06-27 2019-06-27 Outpatient R JADA, [facility] [id number] Univers 11:15:00 11:15:00 RUBIN ity of [facility] 2019-06-13 2019-06-13 Refhardy Hwang, 1.2.840.1 [id number] Univers 00:00:00 00:00:00 Melissa 31504.1.1 ity of 3.104.2.7 [place] .3.681496 Medica l .8 [place] 2019-06-12 2019-06-12 Bandage Maker Nilesh Ramírez 1.2.840.6 [id number] Univers 10:35:51 11:04:41 Visit Ron RudolphjoseeldersravanthiSonia pitts 99749.1.1 ity of 3.104.2.7 [place] .3.156579 Medica l .8 [place] 2019-06-10 2019-06-10 Telephone [place], 1.2.840.7 [id number] Univers 00:00:00 00:00:00 Leelee 71968.1.1 ity of 3.104.2.7 [place] .3.128459 Medica l .8 [place] 2019-06-09 2019-06-09 Routine W[place], 1.2.840.1 [id number] Univers 08:50:40 10:51:19 Leelee 24713.1.1 ity of Visit 3.104.2.7 [place] .3.983093 Medica l .8 [place] 2019-06-09 2019-06-09 Bandage Maker Ermelinda Leelee 1.2.840.1 [id number] Univers 09:52:31 10:07:31 Visit Nina, [facility] 31582.1.1 ity of 3.104.2.7 [place] .3.850648 Medica l .8 [place] 2019-06-09 2019-06-09 Orders Doctor 1.2.840.6 [id number] Univers 00:00:00 00:00:00 Only Unassigned, 69422.1.1 ity of [place] 3.104.2.7 [place] .3.460973 Medica l .8 [place] 2019-05-15 2019-05-15 Bandage Maker Desiree, 1.2.840.6 [id number] Univers 09:31:53 10:01:53 Visit Nilesh Hanna 68518.1.1 ity of 3.104.2.7 [place] .3.370753 Medica l .8 [place] 2019-05-11 2019-05-11 Routine Wadsworth, 1.2.840.4 [id number] Univers 08:29:58 09:39:30 Leelee 55879.1.1 ity of Visit 3.104.2.7 [place] .3.780104 Medica l .8 [place] 2019-02-07 2019-02-07 Routine Jada, 1.2.840.3 [id number] [facility] 09:15:41 10:08:21 Rubin 48727.1.1 ity of Visit 3.104.2.7 [place] .3.466470 Medica l .8 [place] 2019-02-07 2019-02-07 Telephone Wad[place], 1.2.840.6 [id number] Univers 00:00:00 00:00:00 Elelee 89441.1.1 ity of 3.104.2.7 [place] .3.314806 Medica l .8 [place] 2019-02-02 2019-02-02 Nurse Leelee Wadsworth 1.2.840.1 [id number] [facility] 08:52:25 10:51:58 Visit Nurse, [facility] 55565.1.1 ity of 3.104.2.7 [place] .3.334631 Medica l .8 [place] 2019-02-02 2019-02-02 Telephone Wad[place], 1.2.840.4 [id number] Univers 00:00:00 00:00:00 Leelee 88097.1.1 ity of 3.104.2.7 [place] .3.297671 Medica l .8 [place] 2019-01-30 2019-01-30 Routine Melissa Hwang 1.2.840.1 [id number] [facility] 14:05:18 14:57:54 [facility], [facility] 89361.1.1 ity of Visit 3.104.2.7 [place] .3.299118 Medica l .8 [place] 2019-01-27 2019-01-27 Orders Doctor 1.2.840.5 [id number] [facility] Univers 00:00:00 00:00:00 Only Unassigned, 53567.1.1 ity of [place] 3.104.2.7 [place] .3.945068 Medica l .8 [place] 2019-01-23 2019-01-23 Telephone Wad[place], 1.2.840.3 [id number] Univers 00:00:00 00:00:00 Leelee 12033.1.1 ity of 3.104.2.7 [place] .3.974480 Medica l .8 [place] 2019-01-19 2019-01-20 Routine Wadsworth, 1.2.840.6 [id number] Univers 08:33:37 16:03:13 Leelee 28037.1.1 ity of Visit 3.104.2.7 [place] .3.340481 Medica l .8 [place] 2019-01-20 2019-01-20 Telephone Wad[place], 1.2.840.1 [id number] Univers 00:00:00 00:00:00 Leelee 34963.1.1 ity of 3.104.2.7 [place] .3.863884 Medica l .8 [place] 2019-01-12 2019-01-12 Telephone Wad[place], 1.2.840.2 [id number] Univers 00:00:00 00:00:00 Leelee 14463.1.1 ity of 3.104.2.7 [place] .3.641440 Medica l .8 Branch 2019-01-10 2019-01-10 Telephone [place], 1.2.840.3 [id number] Univers 00:00:00 00:00:00 Leelee 48185.1.1 ity of 3.104.2.7 [place] .3.172038 Medica l .8 Branch 2019-01-06 2019-01-06 Telephone [place], 1.2.840.4 [id number] Univers 00:00:00 00:00:00 Leelee 46240.1.1 ity of 3.104.2.7 [place] .3.517417 Medica l .8 Branch 2019-01-06 2019-01-06 Telephone [place], 1.2.840.0 [id number] Univers 00:00:00 00:00:00 Leelee 22585.1.1 ity of 3.104.2.7 [place] .3.084885 Medica l .8 [place] 2018-12-29 2018-12-29 Bandage Maker Leelee [place] 1.2.840.1 [id number] Univers 09:33:56 09:48:56 Visit 2, Adc Lab 16758.1.1 i ty of 3.104.2.7 [place] .3.880742 Medica l .8 [place] 2018-12-29 2018-12-29 Initial Ermelinda, 1.2.840.7 [id number] Univers 08:07:10 09:24:31 Leelee 68275.1.1 ity of Visit 3.104.2.7 [place] .3.093890 Medica l .8 [place] 2018-12-29 2018-12-29 Orders Doctor 1.2.840.3 [id number] Univers 00:00:00 00:00:00 Only Unassigned, 65161.1.1 ity of [place] 3.104.2.7 [place] .3.758837 Medica l .8 [place] 2018-09-14 2018-09-14 [facility] [id number] [facility] [address] 10:01:00 10:01:00 t [facility] 2018-08-29 2018-08-29 [facility] [id number] [address] 10:44:00 10:44:00 t [facility] 2018-07-28 2018-07-28 [facility] [id number] [facility] [address] 10:00:00 10:00:00 t [facility] 2017-12-16 2017-12-16 [facility] [id number] [facility] [address] 10:00:00 10:00:00 t [facility] 2017-10-05 2017-10-05 [facility] [id number] 12:00:00 12:00:00 [facility] 2017-09-29 2017-09-29 [facility] [id number] [address] 11:00:00 11:00:00 t [facility] Results Test Description Test Time Test Comments Results Result Sourc e Comments XR LUMBAR SPINE XR LUMBAR SPINE 2 VW University of 2 VW 8 HISTORY: Female [address] [facility] 18:18:12 years back pain Branch COMPARISON: None FINDINGS: Grade 1 anterolisthesis of L5 on S1. The vertebral bodies are normal inheight and in otherwise normal alignment. No more than minimal degenerative changes are present.[facility], Radiant Results Inft User - 05/10/2020 12:19 PM CSTXR LUMBAR SPINE 2 VWHISTORY: Female 35 years back pain COMPARISON: NoneFINDINGS:Grade 1 anterolisthesis of L5 on S1. The vertebral bodies are normal inheight and in otherwise normal alignment.No more than minimal degenerative changes are present. ADC / [facility] - DRUG SCREEN TRIAGE 2019-09-08 22:01:00 Test Item Value Reference Range Interpretation Comme nts BENZO U (test code = Negative Negative 8285430693) ELSIE U (test code = Negative Negative 9979962752) AMPHET (test code = Negative Negative 9139842157) THC (test code = Presumptive Positive Negative A Con firmation of [id number]) Presumptive Pos itive THC result requires physician order . METHADONE (test code = Negative Negative 2190490125) Meth U (test code = Negative Negative 8653452206) OPIATES (test code = Negative Negative 1414067019) Cocaine Metabolite (test Negative Negative code = 3717402389) PROPOXY (test code = Negative Negative 5718289246) Tric U (test code = Negative Negative 0529457749) PCP (test code = Negative Negative 6205518808) OXYCOD (test code = Negative Negative 1017741971) BONNIE (test code = BONNIE) Urine Drug Cutoff Ranges Benzodiazepines: ? ? 150 ng/mLBarbiturates: ?200 ng/mLAmphetamine: ? 500 ng/mLCannabinoids: ?50 ?ng/mLMethadone: ? 200 ng/mLMethamphetamine: ? ? 500 ng/mL Opiates: ? 100 ng/mL or 2000 ng/mLCocaine: ? 150 ng/mLPropoxyphene: ?300 ng/mLTricyclics: ?300 ng/mLOxycodone: ? 100 ng/mLPCP: ? 25 ?ng/mL The results are to be used only for medical (i.e., treatment) purposes. Unconfirmed screening results must not be used for non-medical purposes (e.g., employment testing, legal testing). Lab Interpretation (test Abnormal code = 35643-1) [facility] / [facility] - DRUG SCREEN [id number] 22:01:00 Test Item Value Reference Range Interpretation Comments BENZO U (test code = Negative Negative 3495778741) ELSIE U (test code = Negative Negative 7643715746) AMPHET (test code = Negative Negative 9932206939) THC (test code = Presumptive Negative A Confirmatio n of 7786334851) Positive Presumptive Positive THC result requires physician order . METHADONE (test code Negative Negative = 8175602773) Meth U (test code = Negative Negative 4516910465) OPIATES (test code = Negative Negative 9315339483) Cocaine Metabolite Negative Negative (test code = 6397348473) PROPOXY (test code = Negative Negative 7341899178) Tric U (test code = Negative Negative 1990159349) PCP (test code = Negative Negative 8988632793) OXYCOD (test code = Negative Negative 7889560515) BONNIE (test code = Urine Drug Cutoff BONNIE) Ranges Benzodiazepines: ? ? 150 ng/mLBarbiturates : ?200 ng/mLAmphetamine: ? 500 ng/mLCannabinoids : ?50 ?ng/mLMethadone: ? 200 ng/mLMethamphetam ine: ? ? 500 ng/mL Opiates: ? 100 ng/mL or 2000 ng/mLCocaine: ? 150 ng/mLPropoxyphene : ?300 ng/mLTricyclics: ?300 ng/mLOxycodone: ? 100 ng/mLPCP: ? 25 ?ng/mL The results are to be used only for medical (i.e., treatment) purposes. Unconfirmed screening results must not be used for non-medical purposes (e.g., employment testing, legal testing). Lab Interpretation Abnormal (test code = 13622-4) [facility] / [facility] - DRUG SCREEN [id number] 22:01:00 Test Item Value Reference Range Interpretation Comments BENZO U (test code = Negative Negative 1815993999) ELSIE U (test code = Negative Negative 0179355114) AMPHET (test code = Negative Negative 0255026826) THC (test code = Presumptive Negative A Confirmatio n of 3815926924) Positive Presumptive Positive THC result requires physician order . METHADONE (test code Negative Negative = 4984693698) Meth U (test code = Negative Negative 6390280418) OPIATES (test code = Negative Negative 4550010158) Cocaine Metabolite Negative Negative (test code = 1557317537) PROPOXY (test code = Negative Negative 2264581674) Tric U (test code = Negative Negative 3871333931) PCP (test code = Negative Negative 2213622994) OXYCOD (test code = Negative Negative 2512167948) BONNIE (test code = Urine Drug Cutoff BONNIE) Ranges Benzodiazepines: ? ? 150 ng/mLBarbiturates : ?200 ng/mLAmphetamine: ? 500 ng/mLCannabinoids : ?50 ?ng/mLMethadone: ? 200 ng/mLMethamphetam ine: ? ? 500 ng/mL Opiates: ? 100 ng/mL or 2000 ng/mLCocaine: ? 150 ng/mLPropoxyphene : ?300 ng/mLTricyclics: ?300 ng/mLOxycodone: ? 100 ng/mLPCP: ? 25 ?ng/mL The results are to be used only for medical (i.e., treatment) purposes. Unconfirmed screening results must not be used for non-medical purposes (e.g., employment testing, legal testing). Lab Interpretation Abnormal (test code = 11755-4) [facility] / [facility] - DRUG SCREEN [id number] 22:01:00 Test Item Value Reference Range Interpretation Comments BENZO U (test code = Negative Negative 5661753525) ELSIE U (test code = Negative Negative 5222642424) AMPHET (test code = Negative Negative 0239240061) THC (test code = Presumptive Negative A Confirmatio n of 5133759045) Positive Presumptive Positive THC result requires physician order . METHADONE (test code Negative Negative = 6557775905) Meth U (test code = Negative Negative 1458888350) OPIATES (test code = Negative Negative 9124203387) Cocaine Metabolite Negative Negative (test code = 8063582230) PROPOXY (test code = Negative Negative 8763035048) Tric U (test code = Negative Negative 6909854740) PCP (test code = Negative Negative 9439253733) OXYCOD (test code = Negative Negative 8305381308) BONNIE (test code = Urine Drug Cutoff BONNIE) Ranges Benzodiazepines: ? ? 150 ng/mLBarbiturates : ?200 ng/mLAmphetamine: ? 500 ng/mLCannabinoids : ?50 ?ng/mLMethadone: ? 200 ng/mLMethamphetam ine: ? ? 500 ng/mL Opiates: ? 100 ng/mL or 2000 ng/mLCocaine: ? 150 ng/mLPropoxyphene : ?300 ng/mLTricyclics: ?300 ng/mLOxycodone: ? 100 ng/mLPCP: ? 25 ?ng/mL The results are to be used only for medical (i.e., treatment) purposes. Unconfirmed screening results must not be used for non-medical purposes (e.g., employment testing, legal testing). Lab Interpretation Abnormal (test code = 11206-5) [facility] / [facility] - DRUG SCREEN [id number] 22:01:00 Test Item Value Reference Range Interpretation Comments BENZO U (test code = Negative Negative 0392126250) ELSIE U (test code = Negative Negative 1886086855) AMPHET (test code = Negative Negative 8005068303) THC (test code = Presumptive Negative A Confirmatio n of 4511006155) Positive Presumptive Positive THC result requires physician order . METHADONE (test code Negative Negative = 3548564810) Meth U (test code = Negative Negative 7258232729) OPIATES (test code = Negative Negative 6120199932) Cocaine Metabolite Negative Negative (test code = 9049817153) PROPOXY (test code = Negative Negative 9026012478) Tric U (test code = Negative Negative 7526110513) PCP (test code = Negative Negative 0791481717) OXYCOD (test code = Negative Negative 4132047607) BONNIE (test code = Urine Drug Cutoff BONNIE) Ranges Benzodiazepines: ? ? 150 ng/mLBarbiturates : ?200 ng/mLAmphetamine: ? 500 ng/mLCannabinoids : ?50 ?ng/mLMethadone: ? 200 ng/mLMethamphetam ine: ? ? 500 ng/mL Opiates: ? 100 ng/mL or 2000 ng/mLCocaine: ? 150 ng/mLPropoxyphene : ?300 ng/mLTricyclics: ?300 ng/mLOxycodone: ? 100 ng/mLPCP: ? 25 ?ng/mL The results are to be used only for medical (i.e., treatment) purposes. Unconfirmed screening results must not be used for non-medical purposes (e.g., employment testing, legal testing). Lab Interpretation Abnormal (test code = 24770-4) [facility] / [facility] - DRUG SCREEN [id number] 22:01:00 Test Item Value Reference Range Interpretation Comments BENZO U (test code = Negative Negative 2702538339) ELSIE U (test code = Negative Negative 5331696312) AMPHET (test code = Negative Negative 6529293509) THC (test code = Presumptive Negative A Confirmatio n of 5636200612) Positive Presumptive Positive THC result requires physician order . METHADONE (test code Negative Negative = 2489860302) Meth U (test code = Negative Negative 2863363432) OPIATES (test code = Negative Negative 7395009529) Cocaine Metabolite Negative Negative (test code = 0472966625) PROPOXY (test code = Negative Negative 0666675973) Tric U (test code = Negative Negative 4071817357) PCP (test code = Negative Negative 8031004048) OXYCOD (test code = Negative Negative 9887299972) BONNIE (test code = Urine Drug Cutoff BONNIE) Ranges Benzodiazepines: ? ? 150 ng/mLBarbiturates : ?200 ng/mLAmphetamine: ? 500 ng/mLCannabinoids : ?50 ?ng/mLMethadone: ? 200 ng/mLMethamphetam ine: ? ? 500 ng/mL Opiates: ? 100 ng/mL or 2000 ng/mLCocaine: ? 150 ng/mLPropoxyphene : ?300 ng/mLTricyclics: ?300 ng/mLOxycodone: ? 100 ng/mLPCP: ? 25 ?ng/mL The results are to be used only for medical (i.e., treatment) purposes. Unconfirmed screening results must not be used for non-medical purposes (e.g., employment testing, legal testing). Lab Interpretation Abnormal (test code = 06767-1) [facility] / [facility] - DRUG SCREEN [id number] 22:01:00 Test Item Value Reference Range Interpretation Comments BENZO U (test code = Negative Negative 7704430692) ELSIE U (test code = Negative Negative 3555910870) AMPHET (test code = Negative Negative 4208105000) THC (test code = Presumptive Negative A Confirmatio n of 8505237715) Positive Presumptive Positive THC result requires physician order . METHADONE (test code Negative Negative = 6660149896) Meth U (test code = Negative Negative 3265414560) OPIATES (test code = Negative Negative 1753757890) Cocaine Metabolite Negative Negative (test code = 2148115580) PROPOXY (test code = Negative Negative 8652540931) Tric U (test code = Negative Negative 4068374119) PCP (test code = Negative Negative 3079036028) OXYCOD (test code = Negative Negative 4380144628) BONNIE (test code = Urine Drug Cutoff BONNIE) Ranges Benzodiazepines: ? ? 150 ng/mLBarbiturates : ?200 ng/mLAmphetamine: ? 500 ng/mLCannabinoids : ?50 ?ng/mLMethadone: ? 200 ng/mLMethamphetam ine: ? ? 500 ng/mL Opiates: ? 100 ng/mL or 2000 ng/mLCocaine: ? 150 ng/mLPropoxyphene : ?300 ng/mLTricyclics: ?300 ng/mLOxycodone: ? 100 ng/mLPCP: ? 25 ?ng/mL The results are to be used only for medical (i.e., treatment) purposes. Unconfirmed screening results must not be used for non-medical purposes (e.g., employment testing, legal testing). Lab Interpretation Abnormal (test code = 98626-3) [facility] / [facility] - DRUG SCREEN [id number] 22:01:00 Test Item Value Reference Range Interpretation Comments BENZO U (test code = Negative Negative 5681742056) ELSIE U (test code = Negative Negative 4193972630) AMPHET (test code = Negative Negative 1239306228) THC (test code = Presumptive Negative A Confirmatio n of 2348509930) Positive Presumptive Positive THC result requires physician order . METHADONE (test code Negative Negative = 8034424514) Meth U (test code = Negative Negative 8523466786) OPIATES (test code = Negative Negative 1121549892) Cocaine Metabolite Negative Negative (test code = 4517382937) PROPOXY (test code = Negative Negative 8843750887) Tric U (test code = Negative Negative 1275611211) PCP (test code = Negative Negative 0408908795) OXYCOD (test code = Negative Negative 1871329653) BONNIE (test code = Urine Drug Cutoff BONNIE) Ranges Benzodiazepines: ? ? 150 ng/mLBarbiturates : ?200 ng/mLAmphetamine: ? 500 ng/mLCannabinoids : ?50 ?ng/mLMethadone: ? 200 ng/mLMethamphetam ine: ? ? 500 ng/mL Opiates: ? 100 ng/mL or 2000 ng/mLCocaine: ? 150 ng/mLPropoxyphene : ?300 ng/mLTricyclics: ?300 ng/mLOxycodone: ? 100 ng/mLPCP: ? 25 ?ng/mL The results are to be used only for medical (i.e., treatment) purposes. Unconfirmed screening results must not be used for non-medical purposes (e.g., employment testing, legal testing). Lab Interpretation Abnormal (test code = 28958-0) [id number] 17:16:00 Test Item Value Reference Range Interpretation Comments URIC ACID (test code = 8848880547) 5.6 mg/dL 2.9-6 Lab Interpretation (test code = Normal 39791-7) [facility][id number][facility]2019-09-08 17:16:00 Test Item Value Reference Range Interpretation Comments NA (test code = 141 mmol/L 135-145 0501484151) K (test code = 4.6 mmol/L 3.5-5 6168812717) CL (test code = 107 mmol/L 98-108 4252967881) CO2 TOTAL (test code = 28 mmol/L 23-31 4816853009) AGAP (test code = 2-16 5102344276) BUN (test code = 6 mg/dL 7-23 L 0664678034) GLUCOSE (test code = 96 mg/dL 70-110 0746441353) CREATININE (test code = 0.52 mg/dL 0.5-1.04 3489693946) TOTAL BILI (test code = 0.7 mg/dL 0.1-1.8 6097065619) CALCIUM (test code = 9.6 mg/dL 8.6-10.6 1629036068) T PROTEIN (test code = 6.7 g/dL 6.3-8.2 9147326847) ALBUMIN (test code = 3.7 g/dL 3.5-5 5690418783) ALK PHOS (test code = 115 U/L 34-122 4518604520) ALTv (test code = 21 U/L 5-35 1742-6) AST(SGOT) (test code = 27 U/L 13-40 4302544348) eGFR Calculation mL/min/1.73m2 (Non-) (test code = 1414602028) eGFR Calculation mL/min/1.73m2 () (test code = 3085450951) BONNIE (test code = BONNIE) Association of Glomerular Filtration Rate (GFR) and Staging of Kidney Disease* + --+ --+ ------+| GFR (mL/min/1.73 m2) ?| With Kidney Damage ?| ?Without Kidney Damage+ --------+ --------+ +| ?>90 ?| ?Stage one ?| ? Normal ?+ ---+ ---+ -------+| ?60-89 ?| ?Stage two ?| ? Decreased GFR ? + --+ --+ ------+| ?30-59 ?| ?Stage three ?| ? Stage three ? + --+ --+ ------+| ?15-29 ?| ?Stage four ? | ? Stage four ?+ ---+ ---+ -------+| ?<15 (or dialysis) ? ?| ?Stage five ? | ? Stage five ?+ ---+ ---+ -------+ *Each stage assumes the associated GFR level has been in effect for at least three months. ?Stages 1 to 5, with or without kidney disease, indicate chronic kidney disease. Notes: Determination of stages one and two (with eGFR >59mL/min/1.73 m2) requires estimation of kidney damage for at least three months as defined by structural or functional abnormalities of the kidney, manifested by either:Pathological abnormalities or Markers of kidney damage (including abnormalities in the composition of the blood or urine or abnormalities in imaging tests). Lab Interpretation Abnormal (test code = 20071-8) [facility] [id number] 17:16:00 Test Item Value Reference Range Interpretation Comments URIC ACID (test code = 1664775942) 5.6 mg/dL 2.9-6 Lab Interpretation (test code = Normal 26024-2) [facility] ([id number][facility]2019-09-08 17:16:00 Test Item Value Reference Range Interpretation Comments NA (test code = 141 mmol/L 135-145 5853138974) K (test code = 4.6 mmol/L 3.5-5 8674985964) CL (test code = 107 mmol/L 98-108 2819503428) CO2 TOTAL (test code = 28 mmol/L 23-31 9211747052) AGAP (test code = 2-16 6249127657) BUN (test code = 6 mg/dL 7-23 L 3745114657) GLUCOSE (test code = 96 mg/dL 70-110 8112299894) CREATININE (test code = 0.52 mg/dL 0.5-1.04 7115853546) TOTAL BILI (test code = 0.7 mg/dL 0.1-1.4 5879928791) CALCIUM (test code = 9.6 mg/dL 8.6-10.6 1780831296) T PROTEIN (test code = 6.7 g/dL 6.3-8.2 9688244677) ALBUMIN (test code = 3.7 g/dL 3.5-5 6833993476) ALK PHOS (test code = 115 U/L 34-122 0064013423) ALTv (test code = 21 U/L 5-35 1742-6) AST(SGOT) (test code = 27 U/L 13-40 9462322924) eGFR Calculation mL/min/1.73m2 (Non-) (test code = 8288747308) eGFR Calculation mL/min/1.73m2 () (test code = 2639974240) BONNIE (test code = BONNIE) Association of Glomerular Filtration Rate (GFR) and Staging of Kidney Disease* + --+ --+ ------+| GFR (mL/min/1.73 m2) ?| With Kidney Damage ?| ?Without Kidney Damage+ --------+ --------+ +| ?>90 ?| ?Stage one ?| ? Normal ?+ ---+ ---+ -------+| ?60-89 ?| ?Stage two ?| ? Decreased GFR ? + --+ --+ ------+| ?30-59 ?| ?Stage three ?| ? Stage three ? + --+ --+ ------+| ?15-29 ?| ?Stage four ? | ? Stage four ?+ ---+ ---+ -------+| ?<15 (or dialysis) ? ?| ?Stage five ? | ? Stage five ?+ ---+ ---+ -------+ *Each stage assumes the associated GFR level has been in effect for at least three months. ?Stages 1 to 5, with or without kidney disease, indicate chronic kidney disease. Notes: Determination of stages one and two (with eGFR >59mL/min/1.73 m2) requires estimation of kidney damage for at least three months as defined by structural or functional abnormalities of the kidney, manifested by either:Pathological abnormalities or Markers of kidney damage (including abnormalities in the composition of the blood or urine or abnormalities in imaging tests). Lab Interpretation Abnormal (test code = 74414-8) [facility] [id number] 17:16:00 Test Item Value Reference Range Interpretation Comments URIC ACID (test code = 8215727728) 5.6 mg/dL 2.9-6 Lab Interpretation (test code = Normal 07328-3) [facility] ([id number])2019-09-08 17:16:00 Test Item Value Reference Range Interpretation Comments NA (test code = 141 mmol/L 135-145 0305220065) K (test code = 4.6 mmol/L 3.5-5 3419584428) CL (test code = 107 mmol/L 98-108 8634688629) CO2 TOTAL (test code = 28 mmol/L 23-31 9446583106) AGAP (test code = 2-16 8587211830) BUN (test code = 6 mg/dL 7-23 L 9305188345) GLUCOSE (test code = 96 mg/dL 70-110 0165167404) CREATININE (test code = 0.52 mg/dL 0.5-1.04 5641793030) TOTAL BILI (test code = 0.7 mg/dL 0.1-1.6 5192342284) CALCIUM (test code = 9.6 mg/dL 8.6-10.6 3956175396) T PROTEIN (test code = 6.7 g/dL 6.3-8.2 3772317140) ALBUMIN (test code = 3.7 g/dL 3.5-5 3134459687) ALK PHOS (test code = 115 U/L 34-122 5017241960) ALTv (test code = 21 U/L 5-35 1742-6) AST(SGOT) (test code = 27 U/L 13-40 7011574665) eGFR Calculation mL/min/1.73m2 (Non-) (test code = 7892545565) eGFR Calculation mL/min/1.73m2 () (test code = 9840527462) BONNIE (test code = BONNIE) Association of Glomerular Filtration Rate (GFR) and Staging of Kidney Disease* + --+ --+ ------+| GFR (mL/min/1.73 m2) ?| With Kidney Damage ?| ?Without Kidney Damage+ --------+ --------+ +| ?>90 ?| ?Stage one ?| ? Normal ?+ ---+ ---+ -------+| ?60-89 ?| ?Stage two ?| ? Decreased GFR ? + --+ --+ ------+| ?30-59 ?| ?Stage three ?| ? Stage three ? + --+ --+ ------+| ?15-29 ?| ?Stage four ? | ? Stage four ?+ ---+ ---+ -------+| ?<15 (or dialysis) ? ?| ?Stage five ? | ? Stage five ?+ ---+ ---+ -------+ *Each stage assumes the associated GFR level has been in effect for at least three months. ?Stages 1 to 5, with or without kidney disease, indicate chronic kidney disease. Notes: Determination of stages one and two (with eGFR >59mL/min/1.73 m2) requires estimation of kidney damage for at least three months as defined by structural or functional abnormalities of the kidney, manifested by either:Pathological abnormalities or Markers of kidney damage (including abnormalities in the composition of the blood or urine or abnormalities in imaging tests). Lab Interpretation Abnormal (test code = 36579-3) [facility] [id number] 17:16:00 Test Item Value Reference Range Interpretation Comments URIC ACID (test code = 5750840364) 5.6 mg/dL 2.9-6 Lab Interpretation (test code = Normal 38522-1) [facility] ([id number])2019-09-08 17:16:00 Test Item Value Reference Range Interpretation Comments NA (test code = 141 mmol/L 135-145 1663411363) K (test code = 4.6 mmol/L 3.5-5 3224217699) CL (test code = 107 mmol/L 98-108 5440234339) CO2 TOTAL (test code = 28 mmol/L 23-31 7341291559) AGAP (test code = 2-16 4577417512) BUN (test code = 6 mg/dL 7-23 L 2241543796) GLUCOSE (test code = 96 mg/dL 70-110 6862420764) CREATININE (test code = 0.52 mg/dL 0.5-1.04 7746684495) TOTAL BILI (test code = 0.7 mg/dL 0.1-1.9 0679809541) CALCIUM (test code = 9.6 mg/dL 8.6-10.6 7578554230) T PROTEIN (test code = 6.7 g/dL 6.3-8.2 4999039106) ALBUMIN (test code = 3.7 g/dL 3.5-5 7648938503) ALK PHOS (test code = 115 U/L 34-122 2653065097) ALTv (test code = 21 U/L 5-35 1742-6) AST(SGOT) (test code = 27 U/L 13-40 3347348136) eGFR Calculation mL/min/1.73m2 (Non-) (test code = 9050900694) eGFR Calculation mL/min/1.73m2 () (test code = 7489532419) BONNIE (test code = BONNIE) Association of Glomerular Filtration Rate (GFR) and Staging of Kidney Disease* + --+ --+ ------+| GFR (mL/min/1.73 m2) ?| With Kidney Damage ?| ?Without Kidney Damage+ --------+ --------+ +| ?>90 ?| ?Stage one ?| ? Normal ?+ ---+ ---+ -------+| ?60-89 ?| ?Stage two ?| ? Decreased GFR ? + --+ --+ ------+| ?30-59 ?| ?Stage three ?| ? Stage three ? + --+ --+ ------+| ?15-29 ?| ?Stage four ? | ? Stage four ?+ ---+ ---+ -------+| ?<15 (or dialysis) ? ?| ?Stage five ? | ? Stage five ?+ ---+ ---+ -------+ *Each stage assumes the associated GFR level has been in effect for at least three months. ?Stages 1 to 5, with or without kidney disease, indicate chronic kidney disease. Notes: Determination of stages one and two (with eGFR >59mL/min/1.73 m2) requires estimation of kidney damage for at least three months as defined by structural or functional abnormalities of the kidney, manifested by either:Pathological abnormalities or Markers of kidney damage (including abnormalities in the composition of the blood or urine or abnormalities in imaging tests). Lab Interpretation Abnormal (test code = 43277-2) [facility] [id number] 17:16:00 Test Item Value Reference Range Interpretation Comments URIC ACID (test code = 3211632063) 5.6 mg/dL 2.9-6 Lab Interpretation (test code = Normal 18778-7) [facility] ([id number][facility]2019-09-08 17:16:00 Test Item Value Reference Range Interpretation Comments NA (test code = 141 mmol/L 135-145 2639074284) K (test code = 4.6 mmol/L 3.5-5 7430143535) CL (test code = 107 mmol/L 98-108 2180609672) CO2 TOTAL (test code = 28 mmol/L 23-31 6556541511) AGAP (test code = 2-16 9609446506) BUN (test code = 6 mg/dL 7-23 L 0151063194) GLUCOSE (test code = 96 mg/dL 70-110 6728215671) CREATININE (test code = 0.52 mg/dL 0.5-1.04 3105071532) TOTAL BILI (test code = 0.7 mg/dL 0.1-1.5 6498459856) CALCIUM (test code = 9.6 mg/dL 8.6-10.6 2894257252) T PROTEIN (test code = 6.7 g/dL 6.3-8.2 4117243842) ALBUMIN (test code = 3.7 g/dL 3.5-5 3942571039) ALK PHOS (test code = 115 U/L 34-122 8359319444) ALTv (test code = 21 U/L 5-35 1742-6) AST(SGOT) (test code = 27 U/L 13-40 9430654702) eGFR Calculation mL/min/1.73m2 (Non-) (test code = 9634201936) eGFR Calculation mL/min/1.73m2 () (test code = 7447392329) BONNIE (test code = BONNIE) Association of Glomerular Filtration Rate (GFR) and Staging of Kidney Disease* + --+ --+ ------+| GFR (mL/min/1.73 m2) ?| With Kidney Damage ?| ?Without Kidney Damage+ --------+ --------+ +| ?>90 ?| ?Stage one ?| ? Normal ?+ ---+ ---+ -------+| ?60-89 ?| ?Stage two ?| ? Decreased GFR ? + --+ --+ ------+| ?30-59 ?| ?Stage three ?| ? Stage three ? + --+ --+ ------+| ?15-29 ?| ?Stage four ? | ? Stage four ?+ ---+ ---+ -------+| ?<15 (or dialysis) ? ?| ?Stage five ? | ? Stage five ?+ ---+ ---+ -------+ *Each stage assumes the associated GFR level has been in effect for at least three months. ?Stages 1 to 5, with or without kidney disease, indicate chronic kidney disease. Notes: Determination of stages one and two (with eGFR >59mL/min/1.73 m2) requires estimation of kidney damage for at least three months as defined by structural or functional abnormalities of the kidney, manifested by either:Pathological abnormalities or Markers of kidney damage (including abnormalities in the composition of the blood or urine or abnormalities in imaging tests). Lab Interpretation Abnormal (test code = 25851-1) [facility] [id number] 17:16:00 Test Item Value Reference Range Interpretation Comments URIC ACID (test code = 3201461116) 5.6 mg/dL 2.9-6 Lab Interpretation (test code = Normal 53557-1) [facility] ([id number])2019-09-08 17:16:00 Test Item Value Reference Range Interpretation Comments NA (test code = 141 mmol/L 135-145 7509447531) K (test code = 4.6 mmol/L 3.5-5 1159298941) CL (test code = 107 mmol/L 98-108 5033378109) CO2 TOTAL (test code = 28 mmol/L 23-31 4287479620) AGAP (test code = 2-16 1863723936) BUN (test code = 6 mg/dL 7-23 L 1172080059) GLUCOSE (test code = 96 mg/dL 70-110 7300053788) CREATININE (test code = 0.52 mg/dL 0.5-1.04 0532242248) TOTAL BILI (test code = 0.7 mg/dL 0.1-1.0 2894587818) CALCIUM (test code = 9.6 mg/dL 8.6-10.6 4021456239) T PROTEIN (test code = 6.7 g/dL 6.3-8.2 0477160999) ALBUMIN (test code = 3.7 g/dL 3.5-5 6063546789) ALK PHOS (test code = 115 U/L 34-122 9333908225) ALTv (test code = 21 U/L 5-35 1742-6) AST(SGOT) (test code = 27 U/L 13-40 6433141324) eGFR Calculation mL/min/1.73m2 (Non-) (test code = 4791717168) eGFR Calculation mL/min/1.73m2 () (test code = 5212377872) BONNIE (test code = BONNIE) Association of Glomerular Filtration Rate (GFR) and Staging of Kidney Disease* + --+ --+ ------+| GFR (mL/min/1.73 m2) ?| With Kidney Damage ?| ?Without Kidney Damage+ --------+ --------+ +| ?>90 ?| ?Stage one ?| ? Normal ?+ ---+ ---+ -------+| ?60-89 ?| ?Stage two ?| ? Decreased GFR ? + --+ --+ ------+| ?30-59 ?| ?Stage three ?| ? Stage three ? + --+ --+ ------+| ?15-29 ?| ?Stage four ? | ? Stage four ?+ ---+ ---+ -------+| ?<15 (or dialysis) ? ?| ?Stage five ? | ? Stage five ?+ ---+ ---+ -------+ *Each stage assumes the associated GFR level has been in effect for at least three months. ?Stages 1 to 5, with or without kidney disease, indicate chronic kidney disease. Notes: Determination of stages one and two (with eGFR >59mL/min/1.73 m2) requires estimation of kidney damage for at least three months as defined by structural or functional abnormalities of the kidney, manifested by either:Pathological abnormalities or Markers of kidney damage (including abnormalities in the composition of the blood or urine or abnormalities in imaging tests). Lab Interpretation Abnormal (test code = 43912-3) [id number]16:00 Test Item Value Reference Range Interpretation Comments URIC ACID (test code = 0875567961) 5.6 mg/dL 2.9-6 Lab Interpretation (test code = Normal 96961-8) [facility] ([id number][facility]2019-09-08 17:16:00 Test Item Value Reference Range Interpretation Comments NA (test code = 141 mmol/L 135-145 8248099560) K (test code = 4.6 mmol/L 3.5-5 5273253609) CL (test code = 107 mmol/L 98-108 4123441197) CO2 TOTAL (test code = 28 mmol/L 23-31 7444515567) AGAP (test code = 2-16 3288463490) BUN (test code = 6 mg/dL 7-23 L 4802338112) GLUCOSE (test code = 96 mg/dL 70-110 1941656334) CREATININE (test code = 0.52 mg/dL 0.5-1.04 5353085900) TOTAL BILI (test code = 0.7 mg/dL 0.1-1.5 0061134041) CALCIUM (test code = 9.6 mg/dL 8.6-10.6 7491015654) T PROTEIN (test code = 6.7 g/dL 6.3-8.2 6696381105) ALBUMIN (test code = 3.7 g/dL 3.5-5 0936884826) ALK PHOS (test code = 115 U/L 34-122 7613468763) ALTv (test code = 21 U/L 35 1742-6) AST(SGOT) (test code = 27 U/L 13-40 1823905211) eGFR Calculation mL/min/1.73m2 (Non-) (test code = 1405324018) eGFR Calculation mL/min/1.73m2 () (test code = 4067179507) BONNIE (test code = BONNIE) Association of Glomerular Filtration Rate (GFR) and Staging of Kidney Disease* + --+ --+ ------+| GFR (mL/min/1.73 m2) ?| With Kidney Damage ?| ?Without Kidney Damage+ --------+ --------+ +| ?>90 ?| ?Stage one ?| ? Normal ?+ ---+ ---+ -------+| ?60-89 ?| ?Stage two ?| ? Decreased GFR ? + --+ --+ ------+| ?30-59 ?| ?Stage three ?| ? Stage three ? + --+ --+ ------+| ?15-29 ?| ?Stage four ? | ? Stage four ?+ ---+ ---+ -------+| ?<15 (or dialysis) ? ?| ?Stage five ? | ? Stage five ?+ ---+ ---+ -------+ *Each stage assumes the associated GFR level has been in effect for at least three months. ?Stages 1 to 5, with or without kidney disease, indicate chronic kidney disease. Notes: Determination of stages one and two (with eGFR >59mL/min/1.73 m2) requires estimation of kidney damage for at least three months as defined by structural or functional abnormalities of the kidney, manifested by either:Pathological abnormalities or Markers of kidney damage (including abnormalities in the composition of the blood or urine or abnormalities in imaging tests). Lab Interpretation Abnormal (test code = 20414-2) [facility] WITH [id number] 17:04:00 Test Item Value Reference Range Interpretation Comments WBC (test code = See_Comment [Automated 0687-2) message] The sy stem which generated this result transmitted reference range : 4.30 - 11.10 10*3/?L. The reference range was not used to interpret this result as normal/abnormal . RBC (test code = See_Comment [Automated 789-8) message] The sy stem which generated this result transmitted reference range : 3.93 - 5.25 10*6/?L. The reference range was not used to interpret this result as normal/abnormal . HGB (test code = 11.9 g/dL 11.6-15 718-7) HCT (test code = 38.6 % 35.7-45.2 4544-3) MCV (test code = 80.6 fL 80.6-95.5 787-2) MCH (test code = 24.8 pg 25.9-32.8 L 785-6) MCHC (test code = 30.8 g/dL 31.6-35.1 L 786-4) RDW-SD (test code = 43.3 fL 39-49.9 08626-4) RDW-CV (test code = 15.0 % 12-15.5 788-0) PLT (test code = See_Comment [Automated 777-3) message] The sy stem which generated this result transmitted reference range : 166 - 358 10*3/ ?L. The reference r radha was not used to interpret this result as normal/abnormal . MPV (test code = 11.6 fL 9.5-12.9 06342-1) NRBC/100 WBC (test See_Comment [Automat ed code = 0781679949) message] The system which generated this result transmitted reference range : 0.0 - 10.0 /100 WBCs. The refer ence range was not u sed to interpret th is result as normal/abnormal . NRBC x10^3 (test code <0.01 See_Comment [Auto mated = 4135727829) message] The s ystem which generated this result transmitted reference range : 10*3/?L. The reference range was not used to interpret this result as normal/abnormal . GRAN MAT (NEUT) % 56.7 % (test code = 770-8) IMM GRAN % (test code 0.30 % = 8577603424) LYMPH % (test code = 34.4 % 736-9) MONO % (test code = 5.8 % 5905-5) EOS % (test code = 2.4 % 713-8) BASO % (test code = 0.4 % 706-2) GRAN MAT x10^3(ANC) 4.41 10*3/uL 1.88-7.09 (test code = 9921374657) IMM GRAN x10^3 (test <0.03 0-0.06 code = 2857458562) LYMPH x10^3 (test code 2.68 10*3/uL 1.32-3.29 = 731-0) MONO x10^3 (test code 0.45 10*3/uL 0.33-0.92 = 742-7) EOS x10^3 (test code = 0.19 10*3/uL 0.03-0.39 711-2) BASO x10^3 (test code 0.03 10*3/uL 0.01-0.07 = 704-7) Lab Interpretation Abnormal (test code = 83108-3) [facility] WITH [id number] 17:04:00 Test Item Value Reference Range Interpretation Comments WBC (test code = See_Comment [Automated 8490-2) message] The sy stem which generated this result transmitted reference range : 4.30 - 11.10 10*3/?L. The reference range was not used to interpret this result as normal/abnormal . RBC (test code = See_Comment [Automated 569-8) message] The sy stem which generated this result transmitted reference range : 3.93 - 5.25 10*6/?L. The reference range was not used to interpret this result as normal/abnormal . HGB (test code = 11.9 g/dL 11.6-15 718-7) HCT (test code = 38.6 % 35.7-45.2 4544-3) MCV (test code = 80.6 fL 80.6-95.5 787-2) MCH (test code = 24.8 pg 25.9-32.8 L 785-6) MCHC (test code = 30.8 g/dL 31.6-35.1 L 786-4) RDW-SD (test code = 43.3 fL 39-49.9 48010-0) RDW-CV (test code = 15.0 % 12-15.5 788-0) PLT (test code = See_Comment [Automated 077-3) message] The sy stem which generated this result transmitted reference range : 166 - 358 10*3/ ?L. The reference r radha was not used to interpret this result as normal/abnormal . MPV (test code = 11.6 fL 9.5-12.9 48309-7) NRBC/100 WBC (test See_Comment [Automat ed code = 4751211059) message] The system which generated this result transmitted reference range : 0.0 - 10.0 /100 WBCs. The refer ence range was not u sed to interpret th is result as normal/abnormal . NRBC x10^3 (test code <0.01 See_Comment [Auto mated = 5917334691) message] The s ystem which generated this result transmitted reference range : 10*3/?L. The reference range was not used to interpret this result as normal/abnormal . GRAN MAT (NEUT) % 56.7 % (test code = 770-8) IMM GRAN % (test code 0.30 % = 8093941276) LYMPH % (test code = 34.4 % 736-9) MONO % (test code = 5.8 % 5905-5) EOS % (test code = 2.4 % 713-8) BASO % (test code = 0.4 % 706-2) GRAN MAT x10^3(ANC) 4.41 10*3/uL 1.88-7.09 (test code = 7293969715) IMM GRAN x10^3 (test <0.03 0-0.06 code = 3489291087) LYMPH x10^3 (test code 2.68 10*3/uL 1.32-3.29 = 731-0) MONO x10^3 (test code 0.45 10*3/uL 0.33-0.92 = 742-7) EOS x10^3 (test code = 0.19 10*3/uL 0.03-0.39 711-2) BASO x10^3 (test code 0.03 10*3/uL 0.01-0.07 = 704-7) Lab Interpretation Abnormal (test code = 01953-0) [facility] WITH [id number] 17:04:00 Test Item Value Reference Range Interpretation Comments WBC (test code = See_Comment [Automated 6690-2) message] The sy stem which generated this result transmitted reference range : 4.30 - 11.10 10*3/?L. The reference range was not used to interpret this result as normal/abnormal . RBC (test code = See_Comment [Automated 789-8) message] The sy stem which generated this result transmitted reference range : 3.93 - 5.25 10*6/?L. The reference range was not used to interpret this result as normal/abnormal . HGB (test code = 11.9 g/dL 11.6-15 718-7) HCT (test code = 38.6 % 35.7-45.2 4544-3) MCV (test code = 80.6 fL 80.6-95.5 787-2) MCH (test code = 24.8 pg 25.9-32.8 L 785-6) MCHC (test code = 30.8 g/dL 31.6-35.1 L 786-4) RDW-SD (test code = 43.3 fL 39-49.9 82094-6) RDW-CV (test code = 15.0 % 12-15.5 788-0) PLT (test code = See_Comment [Automated 777-3) message] The sy stem which generated this result transmitted reference range : 166 - 358 10*3/ ?L. The reference r radha was not used to interpret this result as normal/abnormal . MPV (test code = 11.6 fL 9.5-12.9 36021-8) NRBC/100 WBC (test See_Comment [Automat ed code = 8346636342) message] The system which generated this result transmitted reference range : 0.0 - 10.0 /100 WBCs. The refer ence range was not u sed to interpret th is result as normal/abnormal . NRBC x10^3 (test code <0.01 See_Comment [Auto mated = 0728665130) message] The s ystem which generated this result transmitted reference range : 10*3/?L. The reference range was not used to interpret this result as normal/abnormal . GRAN MAT (NEUT) % 56.7 % (test code = 770-8) IMM GRAN % (test code 0.30 % = 0520087358) LYMPH % (test code = 34.4 % 736-9) MONO % (test code = 5.8 % 5905-5) EOS % (test code = 2.4 % 713-8) BASO % (test code = 0.4 % 706-2) GRAN MAT x10^3(ANC) 4.41 10*3/uL 1.88-7.09 (test code = 3913756483) IMM GRAN x10^3 (test <0.03 0-0.06 code = 9393876581) LYMPH x10^3 (test code 2.68 10*3/uL 1.32-3.29 = 731-0) MONO x10^3 (test code 0.45 10*3/uL 0.33-0.92 = 742-7) EOS x10^3 (test code = 0.19 10*3/uL 0.03-0.39 711-2) BASO x10^3 (test code 0.03 10*3/uL 0.01-0.07 = 704-7) Lab Interpretation Abnormal (test code = 62010-9) [facility] WITH [id number] 17:04:00 Test Item Value Reference Range Interpretation Comments WBC (test code = See_Comment [Automated 6690-2) message] The sy stem which generated this result transmitted reference range : 4.30 - 11.10 10*3/?L. The reference range was not used to interpret this result as normal/abnormal . RBC (test code = See_Comment [Automated 489-8) message] The sy stem which generated this result transmitted reference range : 3.93 - 5.25 10*6/?L. The reference range was not used to interpret this result as normal/abnormal . HGB (test code = 11.9 g/dL 11.6-15 718-7) HCT (test code = 38.6 % 35.7-45.2 4544-3) MCV (test code = 80.6 fL 80.6-95.5 787-2) MCH (test code = 24.8 pg 25.9-32.8 L 785-6) MCHC (test code = 30.8 g/dL 31.6-35.1 L 786-4) RDW-SD (test code = 43.3 fL 39-49.9 32129-3) RDW-CV (test code = 15.0 % 12-15.5 788-0) PLT (test code = See_Comment [Automated 777-3) message] The sy stem which generated this result transmitted reference range : 166 - 358 10*3/ ?L. The reference r radha was not used to interpret this result as normal/abnormal . MPV (test code = 11.6 fL 9.5-12.9 02840-2) NRBC/100 WBC (test See_Comment [Automat ed code = 7304622650) message] The system which generated this result transmitted reference range : 0.0 - 10.0 /100 WBCs. The refer ence range was not u sed to interpret th is result as normal/abnormal . NRBC x10^3 (test code <0.01 See_Comment [Auto mated = 7443604151) message] The s ystem which generated this result transmitted reference range : 10*3/?L. The reference range was not used to interpret this result as normal/abnormal . GRAN MAT (NEUT) % 56.7 % (test code = 770-8) IMM GRAN % (test code 0.30 % = 0965652834) LYMPH % (test code = 34.4 % 736-9) MONO % (test code = 5.8 % 5905-5) EOS % (test code = 2.4 % 713-8) BASO % (test code = 0.4 % 706-2) GRAN MAT x10^3(ANC) 4.41 10*3/uL 1.88-7.09 (test code = 0338649792) IMM GRAN x10^3 (test <0.03 0-0.06 code = 8784461354) LYMPH x10^3 (test code 2.68 10*3/uL 1.32-3.29 = 731-0) MONO x10^3 (test code 0.45 10*3/uL 0.33-0.92 = 742-7) EOS x10^3 (test code = 0.19 10*3/uL 0.03-0.39 711-2) BASO x10^3 (test code 0.03 10*3/uL 0.01-0.07 = 704-7) Lab Interpretation Abnormal (test code = 76596-8) [facility] WITH [id number] 17:04:00 Test Item Value Reference Range Interpretation Comments WBC (test code = See_Comment [Automated 6690-2) message] The sy stem which generated this result transmitted reference range : 4.30 - 11.10 10*3/?L. The reference range was not used to interpret this result as normal/abnormal . RBC (test code = See_Comment [Automated 789-8) message] The sy stem which generated this result transmitted reference range : 3.93 - 5.25 10*6/?L. The reference range was not used to interpret this result as normal/abnormal . HGB (test code = 11.9 g/dL 11.6-15 718-7) HCT (test code = 38.6 % 35.7-45.2 4544-3) MCV (test code = 80.6 fL 80.6-95.5 787-2) MCH (test code = 24.8 pg 25.9-32.8 L 785-6) MCHC (test code = 30.8 g/dL 31.6-35.1 L 786-4) RDW-SD (test code = 43.3 fL 39-49.9 68324-4) RDW-CV (test code = 15.0 % 12-15.5 788-0) PLT (test code = See_Comment [Automated 777-3) message] The sy stem which generated this result transmitted reference range : 166 - 358 10*3/ ?L. The reference r radha was not used to interpret this result as normal/abnormal . MPV (test code = 11.6 fL 9.5-12.9 60109-9) NRBC/100 WBC (test See_Comment [Automat ed code = 2888450503) message] The system which generated this result transmitted reference range : 0.0 - 10.0 /100 WBCs. The refer ence range was not u sed to interpret th is result as normal/abnormal . NRBC x10^3 (test code <0.01 See_Comment [Auto mated = 6193896252) message] The s ystem which generated this result transmitted reference range : 10*3/?L. The reference range was not used to interpret this result as normal/abnormal . GRAN MAT (NEUT) % 56.7 % (test code = 770-8) IMM GRAN % (test code 0.30 % = 7059604083) LYMPH % (test code = 34.4 % 736-9) MONO % (test code = 5.8 % 5905-5) EOS % (test code = 2.4 % 713-8) BASO % (test code = 0.4 % 706-2) GRAN MAT x10^3(ANC) 4.41 10*3/uL 1.88-7.09 (test code = 7121010147) IMM GRAN x10^3 (test <0.03 0-0.06 code = 1578105715) LYMPH x10^3 (test code 2.68 10*3/uL 1.32-3.29 = 731-0) MONO x10^3 (test code 0.45 10*3/uL 0.33-0.92 = 742-7) EOS x10^3 (test code = 0.19 10*3/uL 0.03-0.39 711-2) BASO x10^3 (test code 0.03 10*3/uL 0.01-0.07 = 704-7) Lab Interpretation Abnormal (test code = 75822-7) [facility] WITH [id number] 17:04:00 Test Item Value Reference Range Interpretation Comments WBC (test code = See_Comment [Automated 0733-2) message] The sy stem which generated this result transmitted reference range : 4.30 - 11.10 10*3/?L. The reference range was not used to interpret this result as normal/abnormal . RBC (test code = See_Comment [Automated 689-8) message] The sy stem which generated this result transmitted reference range : 3.93 - 5.25 10*6/?L. The reference range was not used to interpret this result as normal/abnormal . HGB (test code = 11.9 g/dL 11.6-15 718-7) HCT (test code = 38.6 % 35.7-45.2 4544-3) MCV (test code = 80.6 fL 80.6-95.5 787-2) MCH (test code = 24.8 pg 25.9-32.8 L 785-6) MCHC (test code = 30.8 g/dL 31.6-35.1 L 786-4) RDW-SD (test code = 43.3 fL 39-49.9 66578-2) RDW-CV (test code = 15.0 % 12-15.5 788-0) PLT (test code = See_Comment [Automated 777-3) message] The sy stem which generated this result transmitted reference range : 166 - 358 10*3/ ?L. The reference r radha was not used to interpret this result as normal/abnormal . MPV (test code = 11.6 fL 9.5-12.9 43198-3) NRBC/100 WBC (test See_Comment [Automat ed code = 4374002033) message] The system which generated this result transmitted reference range : 0.0 - 10.0 /100 WBCs. The refer ence range was not u sed to interpret th is result as normal/abnormal . NRBC x10^3 (test code <0.01 See_Comment [Auto mated = 9416832142) message] The s ystem which generated this result transmitted reference range : 10*3/?L. The reference range was not used to interpret this result as normal/abnormal . GRAN MAT (NEUT) % 56.7 % (test code = 770-8) IMM GRAN % (test code 0.30 % = 0168471444) LYMPH % (test code = 34.4 % 736-9) MONO % (test code = 5.8 % 5905-5) EOS % (test code = 2.4 % 713-8) BASO % (test code = 0.4 % 706-2) GRAN MAT x10^3(ANC) 4.41 10*3/uL 1.88-7.09 (test code = 1735579741) IMM GRAN x10^3 (test <0.03 0-0.06 code = 7727320896) LYMPH x10^3 (test code 2.68 10*3/uL 1.32-3.29 = 731-0) MONO x10^3 (test code 0.45 10*3/uL 0.33-0.92 = 742-7) EOS x10^3 (test code = 0.19 10*3/uL 0.03-0.39 711-2) BASO x10^3 (test code 0.03 10*3/uL 0.01-0.07 = 704-7) Lab Interpretation Abnormal (test code = 76776-1) [facility] WITH [id number] 17:04:00 Test Item Value Reference Range Interpretation Comments WBC (test code = See_Comment [Automated 6690-2) message] The sy stem which generated this result transmitted reference range : 4.30 - 11.10 10*3/?L. The reference range was not used to interpret this result as normal/abnormal . RBC (test code = See_Comment [Automated 789-8) message] The sy stem which generated this result transmitted reference range : 3.93 - 5.25 10*6/?L. The reference range was not used to interpret this result as normal/abnormal . HGB (test code = 11.9 g/dL 11.6-15 718-7) HCT (test code = 38.6 % 35.7-45.2 4544-3) MCV (test code = 80.6 fL 80.6-95.5 787-2) MCH (test code = 24.8 pg 25.9-32.8 L 785-6) MCHC (test code = 30.8 g/dL 31.6-35.1 L 786-4) RDW-SD (test code = 43.3 fL 39-49.9 23865-7) RDW-CV (test code = 15.0 % 12-15.5 788-0) PLT (test code = See_Comment [Automated 777-3) message] The sy stem which generated this result transmitted reference range : 166 - 358 10*3/ ?L. The reference r radha was not used to interpret this result as normal/abnormal . MPV (test code = 11.6 fL 9.5-12.9 65995-6) NRBC/100 WBC (test See_Comment [Automat ed code = 8084476926) message] The system which generated this result transmitted reference range : 0.0 - 10.0 /100 WBCs. The refer ence range was not u sed to interpret th is result as normal/abnormal . NRBC x10^3 (test code <0.01 See_Comment [Auto mated = 1537581991) message] The s ystem which generated this result transmitted reference range : 10*3/?L. The reference range was not used to interpret this result as normal/abnormal . GRAN MAT (NEUT) % 56.7 % (test code = 770-8) IMM GRAN % (test code 0.30 % = 9367456392) LYMPH % (test code = 34.4 % 736-9) MONO % (test code = 5.8 % 5905-5) EOS % (test code = 2.4 % 713-8) BASO % (test code = 0.4 % 706-2) GRAN MAT x10^3(ANC) 4.41 10*3/uL 1.88-7.09 (test code = 3693885509) IMM GRAN x10^3 (test <0.03 0-0.06 code = 5442271216) LYMPH x10^3 (test code 2.68 10*3/uL 1.32-3.29 = 731-0) MONO x10^3 (test code 0.45 10*3/uL 0.33-0.92 = 742-7) EOS x10^3 (test code = 0.19 10*3/uL 0.03-0.39 711-2) BASO x10^3 (test code 0.03 10*3/uL 0.01-0.07 = 704-7) Lab Interpretation Abnormal (test code = 03270-5) [facility] URINALYSIS W/O SPECIFIC [id number] 16:46:00 Test Item Value Reference Range Interpretation Comments POCT PH U (test code = 3254) n/a 5-8 POCT U LEUK EST (test code = n/a Negative - Negative 3263) POCT U NIT (test code = 3262) n/a Negative - Negative POCT U PROT (test code = 3259) negative Negative - Negative POCT U GLU (test code = 3256) negative Negative - Negative POCT U KETONE (test code = 3258) n/a Negative - Negative POCT U BLD (test code = 3257) n/a Negative - Negative Lab Interpretation (test code = Normal 57853-2) [facility] URINALYSIS W/O SPECIFIC [id number] 16:46:00 Test Item Value Reference Range Interpretation Comments POCT PH U (test code = 3254) n/a 5-8 POCT U LEUK EST (test code = n/a Negative - Negative 3263) POCT U NIT (test code = 3262) n/a Negative - Negative POCT U PROT (test code = 3259) negative Negative - Negative POCT U GLU (test code = 3256) negative Negative - Negative POCT U KETONE (test code = 3258) n/a Negative - Negative POCT U BLD (test code = 3257) n/a Negative - Negative Lab Interpretation (test code = Normal 36834-1) [facility] URINALYSIS W/O SPECIFIC [id number] 16:46:00 Test Item Value Reference Range Interpretation Comments POCT PH U (test code = 3254) n/a 5-8 POCT U LEUK EST (test code = n/a Negative - Negative 3263) POCT U NIT (test code = 3262) n/a Negative - Negative POCT U PROT (test code = 3259) negative Negative - Negative POCT U GLU (test code = 3256) negative Negative - Negative POCT U KETONE (test code = 3258) n/a Negative - Negative POCT U BLD (test code = 3257) n/a Negative - Negative Lab Interpretation (test code = Normal 95842-7) [facility] URINALYSIS W/O SPECIFIC [id number] 16:46:00 Test Item Value Reference Range Interpretation Comments POCT PH U (test code = 3254) n/a 5-8 POCT U LEUK EST (test code = n/a Negative - Negative 3263) POCT U NIT (test code = 3262) n/a Negative - Negative POCT U PROT (test code = 3259) negative Negative - Negative POCT U GLU (test code = 3256) negative Negative - Negative POCT U KETONE (test code = 3258) n/a Negative - Negative POCT U BLD (test code = 3257) n/a Negative - Negative Lab Interpretation (test code = Normal 87191-0) [facility] URINALYSIS W/O SPECIFIC [id number] 16:46:00 Test Item Value Reference Range Interpretation Comments POCT PH U (test code = 3254) n/a 5-8 POCT U LEUK EST (test code = n/a Negative - Negative 3263) POCT U NIT (test code = 3262) n/a Negative - Negative POCT U PROT (test code = 3259) negative Negative - Negative POCT U GLU (test code = 3256) negative Negative - Negative POCT U KETONE (test code = 3258) n/a Negative - Negative POCT U BLD (test code = 3257) n/a Negative - Negative Lab Interpretation (test code = Normal 18752-5) [facility] URINALYSIS W/O SPECIFIC [id number] 16:46:00 Test Item Value Reference Range Interpretation Comments POCT PH U (test code = 3254) n/a 5-8 POCT U LEUK EST (test code = n/a Negative - Negative 3263) POCT U NIT (test code = 3262) n/a Negative - Negative POCT U PROT (test code = 3259) negative Negative - Negative POCT U GLU (test code = 3256) negative Negative - Negative POCT U KETONE (test code = 3258) n/a Negative - Negative POCT U BLD (test code = 3257) n/a Negative - Negative Lab Interpretation (test code = Normal 67149-1) [facility] URINALYSIS W/O SPECIFIC [id number] 16:46:00 Test Item Value Reference Range Interpretation Comments POCT PH U (test code = 3254) n/a 5-8 POCT U LEUK EST (test code = n/a Negative - Negative 3263) POCT U NIT (test code = 3262) n/a Negative - Negative POCT U PROT (test code = 3259) negative Negative - Negative POCT U GLU (test code = 3256) negative Negative - Negative POCT U KETONE (test code = 3258) n/a Negative - Negative POCT U BLD (test code = 3257) n/a Negative - Negative Lab Interpretation (test code = Normal 92135-6) [facility] URINALYSIS W/O SPECIFIC [id number] 16:46:00 Test Item Value Reference Range Interpretation Comments POCT PH U (test code = 3254) n/a 5-8 POCT U LEUK EST (test code = n/a Negative - Negative 3263) POCT U NIT (test code = 3262) n/a Negative - Negative POCT U PROT (test code = 3259) negative Negative - Negative POCT U GLU (test code = 3256) negative Negative - Negative POCT U KETONE (test code = 3258) n/a Negative - Negative POCT U BLD (test code = 3257) n/a Negative - Negative Lab Interpretation (test code = Normal 75475-2) [facility] [id number] 15:47:00 Test Item Value Reference Range Interpretation Comments Case Report (test code Surgical Pathology ? ? = [id number]) ?Case: [id number] ? Authorizing Provider: ?Leelee Wadsworth MD ? ? ? Collected: ? 08/21/2019 1910 ?Ordering Location: ? ? Labor and Delivery ([facility]) ?Received: ?08/22/2019 1226 ?Pathologist: ? Kirk Sánchez MD ?Specimens: ? A) - FALLOPIAN TUBE, RIGHT ? B) - FALLOPIAN TUBE, LEFT ? Final Diagnosis (test w7ttfGJaWTKsg8ajRNErjI code = [id number]) FuZzEwMzNcZnRuYmpcdWMx ZXssytBlMJkqf9CkC9VmBq AwMFxhbnNpXGRlZmxhbmcx XLSfOSS6pcWyECQrLWnwGU KoYSkaVf4fiWXlhXdhTbIc GAGgw0mneqKBjtstpRz4y7 haFFKoKcU5sSUzJDrrJ8oy pnRgzISkATNhIYy4pB86YL PbqQ4aiBKcWSqvanEeZCqn mvWghqBoLow3TFRjD8ckVD KmFWOkX7TtXL4aITTtRoa2 FMA7YZD4aUeru2R6uWTjaB UvxEcnJdFwLuIbSFTUb4Gb GKl2xQzyC2MbKVXlWjL5yL QgUGFyYWdyYXBoIEZvbnQ7 wI43THpkxhK7mMWls4Cjo7 5pe132yV3weIZgIMQ0MFSj EGTqhKImQRUoVLS8WVHsbH FvS3tfPQryDX6bnhsgKRG3 MFxtYXJndDcyMFxtYXJnYj RcnSJuNVIzdScpSDrle771 NSZ9TeFlDL1wH5Ewk2M8pR 9maXRcZGVmdGFiNzIwXGZv bp9izIZwKNhes9CeROB0vc Y0tFVukKPwDOQkLT76Sono e1MaRkdov1AtW48qdER0LM wlt5arFM4iBwZ1ugTuJSro k1mcuA9gAaE4NUpzEO1rXZ 2xTIVavN6sjmtpKKWkSbHc rmflESHheMpqyhYmTn4raL bnMAX8ATgkC7ebrH4jHhI5 WIwjM3quaP3eXNa9MXjloD E2DDLwiD3wYO3xygehj6ki DRB4NTwkLZYwyyV0fkTbEI UglEAuH3CczD33BoNmiREn X0CvjR9lUCzaEIXlafa3Ay NmIx0ikXGcrCH8TMwiFbup YWdlXHBnbmNvbnRccGduZG VjXHBsYWluXHBsYWluXGYw XGZzMjBccGFyZFxwbGFpbl xmMFxmczIwXHBsYWluXGYx XGZzMjBccGFyIEEuIEZBTE xPUElBTiBUVUJFLCBSSUdI IFzdA5MIQAHEMSYQAYULR6 XXILdYKyjtfNOyWHQqHB7w ArJFFHXVFm3WXlFNFYFFHG 6YFA3NJIIJQWbGKOsCDyNM SBNISAuXZG0EWUEEVWHodP GbXWGimjZHSxINSWcKC8YD FH4rNMTRSSedZNLHMWrnJ0 NZXNUVYYMPNNNBA3KEMUbS JzonyVJcXJGtbmMzb5WsBC MeBBE2MYcqPNpyvPSnGWRy gTkqn9scE0SkeBDzLGGpBW zhZTAgDAEqDbIbsObehT1a ZjFcZnMyMCAgICAtIEZVTE sqZ3NGR5DeT4VJGTzJIoKM UpPISPsAH5AJFT3oYIQSWL BJREVOVElGSUVEXHBhclxw CIFpDXQ7sJsetwTPCMbfia wgTUQgIDQvMjIvMjAyMCAg ODhzYtPXKUmpMKC7s2ffzA YxXHNzdGVjZjIyMDAwXGFu v5fgXISsbFCjSpSbCjGaEv QvJxbdnAJqVSJhMsWdt6qi x879cUXur9flXZKmByL9pZ HdVHAklMpfjrh8oRcdYhZj XLZmk8mjapMmPaAcBGIfTK PcHOWmkOBbC986SYGpSInp y2dvs4PuJTBvpMPbw7M5PR AUELpwOyViH075u8nmv7io kyTikSN6XIRnOGS1RDwdyu XfyhY9NUthnRMyKsB8ILdb fbDvSJajpsFpilEeQaa9IW XsH676OXD6fKuim7waMZF9 FCEbJJKoQlcbGy5ruOGnF6 50QLTyJJJIIGPpmPz8QWKy chVhedVaqOFDj454C052l9 elACKoixBzxPjFfcgxo1wq O148QCMttLQjybEwKmIkMV CyjCUctWY1BWCmGI9csdoe PRwgBWbsNTKgskQ1XFNbgS IlG0MaFVNvJT7pohzjPZZ9 XYgxWINdWLV7JjDnGQPhx8 Fewki1HdQwsv1mpn34PVH8 c7OqcGyaMRY4WFN3XlRhLl 0knQUtQROvJB8mQxZijYQn GDSlxe72cEdbMLnejwTkdU 3wXoKpVFZjwTNeFLBnWV7o zOWbAEJqkZ0clafaMCQzGp ArvcaeMPKbiCromvLbUp0f uMvzZBV6KYalX7taqR7fSq F4GDagA6wjtU1rSVa7WUav hSQ2UZDfiI2pBQ3lqjdbo5 hbWSaeITaoCJRxcbU1ayE3 WCLsnEUjG4JmvN4aANAjZN 8radbmx1koHMY8DZlvCTCf BYX0YjThKLTof5Ihqef3Gl Tsr2KwiCLiJClyH58xx858 MLLrxlGdU7supKDmofbywD AonlrqFZffkuC7MRTpBQEs YWluXGYxXGZzMjBcbGFuZz EwMzNcaGljaFxmMVxkYmNo GEMxWKlvJ9rcCkIeK5IgSJ EaAjXdrXKrBDnlpDH2KNRs CFGou60edPs9FCUdzpfne6 KrBJYugBShdWYsgS2ftqNz r0nzESTpQLUkNESiZ4TnRR M1aKZsQDGqeOOlbUM0TQ0w tiIaYL6iYVJvIxgmmfUcsA DsuqRnZLTsNIzlf9azSQ9z QBUaaEmvxK4txCF0EFCpt7 sbsBVhmHHnx3lcz1LfpmZa ZShzKSBtYXkgYXBwZWFyIG 8lIKAcrJGtbuNro1U3Eodq gKOrcrsbTwzoxvE5KYqpjy puCTZuRLcnU5uqPrEvUNHa mFvqGdioc8RoUJXeVMJuQo hccGFyfX0= Clinical Information 34yo s/p (test code = MPDPS [id number]) Gross Description (test f2tsqPKuOXPzoMEmIvLyQA code = [id number]) LwOSHec0ueWOLyuNSsIdDt MzNcZnRuYmpcdWMxXGRlZm Qdu8mzm458zOThc5ygPGSp KvD3dSTmPUGyrYOfQ298XM ZmMXpyj8tfb6QbQHZueOTa p8Q2IUQTentlpDh0e9fzMu XdByA0sHXzZIjaL3qxibHm nLFlKECpV4ByroJNVMZvSo w5mOfpZ25ml2D0SgvsS5bk ZWQwXGdyZWVuMFxibHVlMC Y4OJDeBLD1YWujjcObbdE1 YLpjdFTnXtW7COz4b1sdtD nfDOLyFPX4j3daGMiceyOb KD0jrk3isDq6n4ehsmWpRR TkMGPpjFDNYUHuE1FczIwx Hv0ceYj5tNcxHbqzDMD8Cv t1ZU0klv76zeq0rEwhUWHr ezreDoQ5EAndUSSbdytfZP p9WDazLHOvtOKrDUJepPVh O2NsJMxuTF9bcev3ThZoKX 7niiemNWuzBZPdLHA2NmFz PQIqt6StqugcCuZarx0uat 86NLB0q3HolEgmXVO8FPL6 WsTqMa0jcKMgHHEkJR4vCi MbbAJpHTYyby32lBxyXFrx uyAquW7cIiDqDYHhtGBiBV XzDD0btHTzWLNrnY4hfgjf XHBnYnJkcmhlYWRccGdicm EkSg5wyYjpNLG8QOhsH6uy hM7tFjT4HTioM6htbE9iVW c0DJdcqKL6DSUviM3lTT0b shvrw8vnEOO0TRsqNZMvva D1wqUjLRMbvBNdM6HpfV42 CmWpuNMoL9GllS8lNNheMA Mhbzg4MiNdHm9fuAJtoSH8 MFxzYmtwYWdlXHBnbmNvbn RccGduZGVjXHBsYWluXHBs YWluXGYwXGZzMjBccGFyZF xwbGFpblxmMFxmczIwXHBs JXfmUJSfDDUkDlQqC5EhU5 hxUR4rFUMpwrLeRYWojAEg LMElcpUui5EmIHslosNsWG JlbGVkIHdpdGggdGhlIHBh qIvfdjHxqvFnJZ5kKPPXVZ YriR4rCFPvYTTtEFlfa6Og EW3xhDEeDUfpncdnlUWjDM LxREGwb71meLU6plBbDlVu ORSlfscrXYC2NX7ibJrefs PnOYhsAB34GF9mCHKlrHlq oGxwqbI6nFOqUOcoOipoxS 0luUKbJ9VgUBihYS57XXFq MHstICgvgbd0pPtmv3ghI6 yntMFtp4MngZCauOgma9Rb dGlvbmVkIHRvIHJldmVhbC H5KX4sfCeujblnP0Dda2Sn qVT3qvFgyUFie9GbiKHyZ5 N3ALL4jqJeK7OnOlLjWkLk zuPkIC30MAGdnxGfc5NgeZ bbdpYnGRJgCUJ5Oj2tqCTv ZGWxygJJMP0agFBqVCJvvn PJpBSqqT9oeqSPAOwdLNAw Q9EblaViANbcSFZerd3ukT paDVmcIfMvMQEcb9x0wQF6 yUGqlBS3cAWstXxzQY3jxI CjLMXWBM39zOCwpyayMqKo iQdnkFvlglJ9rOCaGQTaPZ J1MrMthaUpF22qc1ebgVIe a4QrALXcgS9liUQlxRDpRP Tlzqkme5BkaKEjtJSfCpDs NEygi1FiMO7crLLxJQWgYT 39OBxbDJxsmrc7jOD3AKQb NCBjbSBpbiBkaWFtZXRlci kqq4vzJ0kgrKWpc2PnnRTd eIdsa8KdhJbswvJjMYTvLM StecThgCA9YB1evCsrnebr T5Lbu5DuxQO2qtPadTGsc6 EgfDPoJ5M5DJZ3ayXsQ1Tg UpFgYyYazbSrWR92RBJjkd Kty4NhlAasmwYbOYHhKPR5 Vz4ujUOaTUSxluGPPK5avD FyXHBsYWluXGYyXGZzMTZc bGFuZzEwMzNcaGljaFxmMl ohZfVdIIXeZZusB7hgQjPx S5ExLMBkFJLceWAmMVGfZZ luXGYxXGZzMjAgSnVsaWUg QIHGqKubaqE2NXTUARfkRK JccGFyfQ== Embedded Images (test code = [id number]) [facility] [id number] 15:47:00 Test Item Value Reference Range Interpretation Comments Case Report (test code Surgical Pathology ? ? = [id number]) ?Case: [id number] ? Authorizing Provider: ?Leelee Wadsworth MD ? ? ? Collected: ? 08/21/2019 1910 ?Ordering Location: ? ? Labor and Delivery ([facility]) ?Received: ?08/22/2019 1226 ?Pathologist: ? Kirk Sánchez MD ?Specimens: ? A) - FALLOPIAN TUBE, RIGHT ? B) - FALLOPIAN TUBE, LEFT ? Final Diagnosis (test b6aesHRmMUUzi4kdYDQtvP code = [id number]) FuZzEwMzNcZnRuYmpcdWMx PCnekdMfHEomq4BmU0EdOq AwMFxhbnNpXGRlZmxhbmcx CTUgGIU0dySkMRTyULvoME IdCLqfFv6fzKGiqGimPvAo RQAof0pxldDMoievfGg8p3 vzUAVzHwV1mPBzEMqiH8ir uwJnwSXxEEWjBBf4wH20WU WisO6qzFTcNDibqmKtWXln ptDvetMiNit7DLVpC9jxNJ LoROIqO7IeVK9tRXQrZyy0 RZB2LBB0fQnsp7N4rLAhhA VwhWslAaFwPxSbHPKZa0Pn FNj6gVhsI5XhLVZcJmX3vW QgUGFyYWdyYXBoIEZvbnQ7 yU27IHrrivS7iECfy2Pxj2 2ph207kP1enLGvJCZ5AVBy HYYxwCXnTKHnGMM6VJQmfI XnS7vePXhwXS3pwvwbAEI0 MFxtYXJndDcyMFxtYXJnYj NjdZQvAIXifWkfYYoqd786 CKM6YmTiWO9tS2Kjo2R3uJ 9maXRcZGVmdGFiNzIwXGZv jd2evLDqEWafq9OyBKJ4yh K1eLVlzNGwWQDfCJ48Rntf k6YhMtned9PsB18bbYK2NR lcc6rhQO6sCyH6pzCdGDdt j4bnuU5yJcO7BGqsMS6jWV 0bEENbhT7ucwtvWAObFeEt ewylONMstCogawVpTo2xoS ecCHT0FJvnN9dkxR7mNgL9 DRhnK9tewI7jIXu4WRbdyP M3GJIltO2vYV4bfiqns0tb CIP5FPkgWDWjcsU4fhNwQN BokIUnA6VsdZ32PuHcdJWx E9CueR1yOKqsSXDbnrk4Yl JmFw2pmMGpwSD8LDfiAwhf YWdlXHBnbmNvbnRccGduZG VjXHBsYWluXHBsYWluXGYw XGZzMjBccGFyZFxwbGFpbl xmMFxmczIwXHBsYWluXGYx XGZzMjBccGFyIEEuIEZBTE xPUElBTiBUVUJFLCBSSUdI YEpxC0SZJXSZAYTHVJKCD8 IKBYfFUicvxQDtCUByHB7m TvJOBFUJBn1JRiGKTOMCTM 9CKU6XDTALSWiPSDsTFcOS WUHIYUtGYN1FAQHULBBsqQ TuPFJygzKVDtQBHEzEQ0NF CF4gDCLDXOobAUNEYTxdA7 TBQUKGSOCCLJXTT7NNUTjF JocfsTSeAUCikbMts2BmNI IdWGV6CJkyRUjamRLkQWFk vRgwe3grP4UptFIcJXVgLT eeEDPcOECrVdIpeYdjgI8h ZjFcZnMyMCAgICAtIEZVTE esZ2CLD8RxQ0OKYUzSXlYP ChGVTHtBY6VHPI0eGXQEWW BJREVOVElGSUVEXHBhclxw KILbQFY0xIdoutZSLDopfi wgTUQgIDQvMjIvMjAyMCAg SUniGzZJHLgjJQO5f4pgdM YxXHNzdGVjZjIyMDAwXGFu w1tmVMCpyJZgIcZmZcWrJe DyMdynoYUcSUFdRvHts4ch m579eZSjc5bxWCQmShX7oG PzJWGljQpfdbe0qOmdUvEy EGQwe2bjkmKmKuQyIWBjAE YqQHVbjYLfV703NMCbOMwo u5tcp5EwUWRhePNbd0H0FA MSYCivKaCoX029s5onj9iu fdPpkSP8BPLpICF4DWtiaw PtsmD6BEchsIMgCzN7JZku xwRiNMtribDpnxMkNbh1OH TaH666GTF6qBatz6coGTD4 KFVaOKSlMvxdAc8fwQJaW8 89KGHiCPWHIASzjQz7MRSn rgBaswPpoGFHo929C499s7 ncYONbhpGrsQcUxdlpm5st H450VRGytAOjysDiMrRyRF PewFApyYI5TLUwVF0qedsx MPrzYCxwLYMdyzN4WOQlcD XyE6OwEJNsSB5qheqgQAM5 FWmpRSRzPUK5GzDxHFRbr0 Nstdn2QwMwoi0hfs36BGY0 k2NktXitCAA9XUT5LmVxQy 0yxZPnKMMdBY1pEsXrpLAj AHGvur13lPhdHWviifHbjK 3nHsQlBSSfyNRePSXoZT8f wFXwIVSgvG1mgxodONKbSr WqvwiyGTUmrZyqaeOtIt6c pPstAOX4YGqiS5gcxO6bSv I6QUwtN7ncbA1mTQa9YApl vTM1UYVtnW8qES6lqpizo9 ynCIwgBLxjFLKllyR0ofD7 RRAvoXOzZ7EcrW8zWPAhXC 6vecwwu6arUSM5TSghGBZb VEU0SaFwMDBtd7Ebrpq8Sm Zkx8BvpLDlDFfxJ74fm723 ZCKcpqSdY4hzjSPpluzrmJ FvgwdiRTljceS2XEDmGBKn YWluXGYxXGZzMjBcbGFuZz EwMzNcaGljaFxmMVxkYmNo HLVtAArpE8zzWlLoV1FmPA InQrTveARzNJxlxWI6MAOk OZSxx54iuFt3BPMjlemmj1 DpAROflREruGQcdC6xfjBr p8ewGTIcFQCyWSKyH1PyFQ I5eWRsXBCkoENzcGJ0ML6x rdTlES2rKJYzFxblhhEtiM TaliJtLEJwDImic0lcVU5o KAGquLqgqK1npXD6NPHtb0 ranGUovZGei9ftn8DjfnHa ZShzKSBtYXkgYXBwZWFyIG 4nTTMrjEJryhRcm4X7Rfpu nPGrwxotQaridfF4GRerpi mmDMQcPBrnM9gzDmMoKRLj cVbwZyspz6YrLUPrRCRyTg hccGFyfX0= Clinical Information 34yo s/p (test code = MPDPS [id number]) Gross Description (test t6huxXTmKPAhbPVzNhFpPV code = [id number]) XfYVOum3hyOLCydEHhZsFy MzNcZnRuYmpcdWMxXGRlZm Bim9oyp673kBMqr9qnHJEw CmF1oDWsKLIakRAhA467BB QnDPtde3ucz0LqELWveENw q4C9QJDLftvlvUe9q0ufJb TfQpT4yKPaKAjuA5tpjvQq mBSxDWMwV5NwexUHXUXiVv a1zWstS04ha3V3NgfvI3hr ZWQwXGdyZWVuMFxibHVlMC T7VBIyGJA2WUgdobBxuqF2 CHxqdVBuIqQ9IHn9j6lgkG lyTPPuLMC6y0slYLuhouVv LR5wrv5rwFd2l4vvanExAS DyXDPcsVHUQNAcI2XqiMnt Mb1kvDq2gXiqZxhoIIX1Cc o2SD9wyo41lbc8uNzjMQRt lpgvIpU1GEvxDIBialndWJ o1FWkaTLMvyNScJBNxzIHh Y5BkIEqmBG1alqy4QyEaEA 6irqkhTJoxJAOoIQI8WcWj JFZyi5UfmvmoBnBlyh7gzp 10QTV7h8EvgHwmNDM8FKN5 MyKsAn8zrGHlIKZxDA5mTy EesVEnWHFqeg98qBtpHOie nuEaiD3vApYgGZIumSHcJL OnDB0ysOQhIIZugW8zdmdx XHBnYnJkcmhlYWRccGdicm SzGl1pmWylWYV2BYueB5es gW9lFzH5YKazO2wxvK9hLZ u5PBbvmWE4HWChpK6pUO7c suksn7bcFCM8OKgmCFEljb J1ooMwHDYlwCZbH3RjtP76 CeRoxDBmO1BrrG6tQLutXI Dhpiy8RnVaFi0neDSizBZ7 MFxzYmtwYWdlXHBnbmNvbn RccGduZGVjXHBsYWluXHBs YWluXGYwXGZzMjBccGFyZF xwbGFpblxmMFxmczIwXHBs ZSsnUJLoFWOyWcQzD7YfI0 mbDX3cEQTdfkVhYCLtoBWa BZMogvWpw8XxGSzapgCrFF JlbGVkIHdpdGggdGhlIHBh iHmqtvAjcdVuRY5lAMVWTV BbnD4jCAEwCTZmFGaou0Yp YR3xvLYnDWczhmnmkWZwFV AmQIXif55ikPQ0tcRrHdVh MQBeegjyYVD1OA8xfMizkg VmTOldXB48LS7qAFBcwOny aAueanR4vVEuPCgfTvwuoR 8riZAhL7StOVsmYH48XHOe OEsgBLgomnv9eZhfw6zeC7 tmfXDtz3KrqQTivNnvt9Wv dGlvbmVkIHRvIHJldmVhbC L1SR4caUaiemyxM3Ujm8Lc lAX6naItiAMbn5UftNYwU5 M6JFB0ddDsP3XuLjVoYyPc cwLiQK14OSYvcdLci8WtkJ mnkvUjLVRkHRY4Mt6lsAJp EQHstnVEAV0fdMNmHKMqhz VAlOUkhQ6efxGZWGwsPXWp G1TaaiYgCGlqJYQhqe3awF ntNKxfIrGcWBUrp7d5kFI8 tHPxyQN8zCSxyBsxXU9jvP RdUOIGRH69lEKvioytFxIm gBotcNzvuxD5bTHwSFAnWL B1PnNzmnXjA69hf8ddnKNw x2UmUJYesY6jpWQzuDQeXK Hnpnrlx7TtsWIrpMAzYlSv OKsqs9WlTN5cjFLjZMGfYU 29TGmeVGfsmbe3lMU6EHVw NCBjbSBpbiBkaWFtZXRlci rck8alI8fujERyb3BbfUHc lEpjm2PbyRyaoyOkQEMoUB NxspGmaAU2TI9loJriryho T7Ukr7HtaOA0iqRtgANbr6 FvvVAhV8B3EWB8xzYkJ1Xi WmZyFvDjxjWkKC19HUTvvi Uff9VzlZfpsqYeLYNhSAX5 Aw0jlMNpUBMcdkQAJF3xmT FyXHBsYWluXGYyXGZzMTZc bGFuZzEwMzNcaGljaFxmMl agAmXtWUGhIZteM0jsLrNv E7WkHVFqRTDpqMYaHIHvQJ luXGYxXGZzMjAgSnVsaWUg YFBJkNslmvI7MJAAPMeaKJ JccGFyfQ== Embedded Images (test code = [id number]) [facility] [id number] 15:47:00 Test Item Value Reference Range Interpretation Comments Case Report (test code Surgical Pathology ? ? = [id number]) ?Case: [id number] ? Authorizing Provider: ?Leelee Wadsworth MD ? ? ? Collected: ? 08/21/2019 1910 ?Ordering Location: ? ? Labor and Delivery ([facility]) ?Received: ?08/22/2019 1226 ?Pathologist: ? Kirk Sánchez MD ?Specimens: ? A) - FALLOPIAN TUBE, RIGHT ? B) - FALLOPIAN TUBE, LEFT ? Final Diagnosis (test a6nzySEkBBZje4mcDDVkrZ code = [id number]) FuZzEwMzNcZnRuYmpcdWMx QGigvkTlFKnmv3WxO8HwEc AwMFxhbnNpXGRlZmxhbmcx ASGrVXN3uqFgWAQrQQrpYF UpDLdkAm9wbEMxjUosOsQv PVTse9sorcMOaeapcDb0x1 jnOGOqJqI0gKMxYSnjE4pq eeNvdRRqPKSoIEp2pS04AG PcbE3uuRLqDQukysBcEYej dhBwdrFbUqt6ZIYoG8tuQH FnIHXgD6BdIZ2rYOYfGwa1 ABU7HIY4lKhuq7M9aHGwiA XjmWmfJhRxCsPuQYYNu7Cf NWv1xNjvZ5UuIXMuKrR5dH QgUGFyYWdyYXBoIEZvbnQ7 nV41XAebmmF6gCVsp5Zhw8 9wd284iU8quDKzWMN9SNVy ZNNesCYdLXFhOLG7GDBuhB HfF2imBSdfZE7nrwzeHYM1 MFxtYXJndDcyMFxtYXJnYj QgbRZiCOJsgQlqAQnzx169 KCE8DqIzRD4aI4Bra9B5sL 9maXRcZGVmdGFiNzIwXGZv bl6tyCTmYNxne4TtVEG0le T6mRYhxVBoOROaAH80Qfjq f5QdZsetu2OqR47feTM1HP tle1krIT7jVeV9cvPaOMao k2hxcP6mApW5KAkcJZ9dMC 1kTEIzzH9clsqfMCFwGnJo ayomLGOcsGwmagEhWm4xqD mvJUO2SEndF9doeV5qXoY6 ANyyA9feiW1mUUb6QJljfS N0ANKmmM8tNR5qjvkuz6oz RPR7NKaqLSXjdsM0fpCtND MfzTLhO4TjcF72EzVnuDMq Q9LfbH2aPSvmWYDaxub4Kq FtWa8lmGTdxDN0WWmtCvmx YWdlXHBnbmNvbnRccGduZG VjXHBsYWluXHBsYWluXGYw XGZzMjBccGFyZFxwbGFpbl xmMFxmczIwXHBsYWluXGYx XGZzMjBccGFyIEEuIEZBTE xPUElBTiBUVUJFLCBSSUdI OEvsF3BVMMRAJMTZORZOD9 EYRCxCMfaegQGhWDKiPI0w NjJMSBEOVj6DBnYKPKFLHD 7WLI0BOBZMIRsTRPuUEcEE HJVYCLmGJF9MGVEYGOOwzS XxIKQhglPMYnOSDXyRS7IQ LS5bIIYLPApjFPYTQVpfY1 DIGFACGGCQTANUA8RQRZjR KtfeiTNyFOShmoJon5DdIH BhKHA7RCxlTMwbkRHoGOZy uDgjk0udJ9ElaOOhYJZoIR tbNBEmVYOaPoRyvDomwC6x ZjFcZnMyMCAgICAtIEZVTE zeJ8YSE1OaW4TIMGpSTuDG FmFGZCsEH0OGND0dAGHEEY BJREVOVElGSUVEXHBhclxw VZOnFSM2uDzpcoPVWXkgnb wgTUQgIDQvMjIvMjAyMCAg BMtnLpAEVAajVFI2y4fprY YxXHNzdGVjZjIyMDAwXGFu l5tsDSGmqUMhAhFgIgIyRz MuEmulgNFrWRVdOvHzg5fc c843fCUyo0zmPCIhExY8iA XaDDHsnWkwtmr0zVsvKdYr IKPrf5mlloBaUpXxDOQjVU ErTFAepBNqZ629JDIdQXki q2qmi5CnYKRouSCxy8O6JH STUWmjLcMhF669u8mts8cr kwGawKA1PMMqFKE3AWqhtc BatyX3MYxjbUKcZkP6DLnh lzRlEXyglsZtcuOwAnc3WV HdO671DKE0sFugf7aoQPE1 DIBlUIXfKwxqBy8mrVSiU2 12WDVhQNGVVLBhnOc9FORk jsTvstJnwQEDz893R421y7 xxQHEkndBzyXaFwojqx3tk Q009CXAstOPwhrZaAsOuGT KogMBpvMW4NQRtUT8lgpxe NDikACvlEQRlheB4KXOnmB TrE5KbBENjSO5uoinoVMX8 LXzyPXWiIUV8DsPqYNEpg7 Xwgqx9WsRmei4vgx59FGL2 v8AveTudWAZ3PIP7FoRbJx 6gvDNnLPWdEL0eIdEjnKZc XMPghk45lGgiRIzwtlAnbB 5lKxAiRBGvjKOySPNuOO5g cGZaUTLuxF6fsgfnZOXpCo DeabuvZGGctYfhvnXkWb4e jObwJQL0GJgkR2mktX3iAi M8UUiwA2gmpT3uBFh6LGod aJM8MEMmiT3iOH1cjxcsn7 jrUQunGVtcWUQvvtN1ncT5 OTIodBGvZ2CrbQ3rZDZgUF 3oanzsi3koQLA8EFvyUOKt WCR0AoKoZXZaq6Xwpxr1Bp Odx8TriYRhZDhrR05qi902 NYFhslHzP2ckmJEvojsfuL BpttilSVcqcwE2BSKrQIMv YWluXGYxXGZzMjBcbGFuZz EwMzNcaGljaFxmMVxkYmNo TCVsPJfoB0pxAkYdW4MvJV UmDoKrwPKcJZnqnIQ5UDSa CLBrq51duZj9PGPeuvopx7 JpMKSvoOFwzQTvbL3umsPf d8lyCOIkYKLpIEYnL7JzWC T9cZHiYZGteWCgiXN5PT9b hzMvCA7aSEQaKeetxxXohM OsgyArNGVeTSnbc4waYW0y QWRxmYmgxY8jpKM2VFGqk0 rcoJFuxZJht9cww0BzffDc ZShzKSBtYXkgYXBwZWFyIG 0mTXUxoWNrmtSvf5U1Cpbq aLVteldhQsxzmpW8ZTkowv vmRWVfMVmwO0glFfZdBGDi kZgtEuzlo5MbHMQbLRReFg hccGFyfX0= Clinical Information 34yo s/p (test code = MPDPS [id number]) Gross Description (test c7zrwPXyKAJxpCEjOhNwYE code = [id number]) HnAESgj4zfIQOcjMCsBcBx MzNcZnRuYmpcdWMxXGRlZm Shf7hxi883aTCbg7gkQIAs NbY1cHUnGPUrqTDfW242IJ RrYPnha9dyg9PdIWGatBXe j1G4ABFCqortzFj4w8mfCz UtIiH7qEPzGHizC1wrtvPg lJMvXXSmX9YbvgPRPBWfCw i5qUsnS65am6R9GjrqV1vg ZWQwXGdyZWVuMFxibHVlMC D7BLFnAGJ4FAomqjAfpyB8 XClcfGTnQjZ8UVi4g0zhlC wfWNRaKMO8x5ksUSypmdZd BB4ryi4wnGt5m5acxrWwIW SsUVAoqRSVYYMmD0HpzHrc Np7juAc8nKqgXmiiLEC8Dg n6RU2alh75asc5tRclWJYj vlruNfT1DQtyEZCulvifUI z9ZQdqWDKhcXNtWIVswCWe W9BuAEkmYA1aron4DvBmSB 0gbexrGEmrMXYzEKS0DmDo FYYzh0DvjggeBpFllp8yxq 24VWL2p9JnvIkuIBH5GCZ2 QhJlRj2axUXgLWKgZO4cPv LmkITbMILkxm07vEfnMUtk zdDogO9tNuEqPCUarNHfUL EqZW7jvXFtQZBepL9erlio XHBnYnJkcmhlYWRccGdicm HuBl3luIzrYFU6PIydA1ux yC8wLrW9ELdqE9aryG7uBM j3GPhzcNN4KSXqjQ8xRY1z ijstd4ixRWO3MNlpQWHusv E8ltKpVLOzrEYsJ9FysI48 EyVchNOhR6SnsD6cIMbyDY Ysgdb0EcFsQa4xaMWqbBI5 MFxzYmtwYWdlXHBnbmNvbn RccGduZGVjXHBsYWluXHBs YWluXGYwXGZzMjBccGFyZF xwbGFpblxmMFxmczIwXHBs OZrnCOOtWXGsWmSvA3ZpB8 peHX9rBUKoihJmXFAlfHRr RFJxvkXlp9RgZNunneAdYE JlbGVkIHdpdGggdGhlIHBh vCvkwcRsmbCgEK9fQYBIZN GjyF5vCCScQZBgUKgoh6Jy TA1itDBuSUktxhidePAxTT GfXHByl54knPW2plJlKdJb BRMduzooKFL8CG1anLnywa KvXSgbQH16UL6rJPBmyEgv uTzjtqT6nOIiRXxtFougqK 8oeGFrZ8EdLHuvJQ07POZw XArgAAlmnhi9yMcqt6gbM7 wrbEHjm8OpkEDhaDirp9Ar dGlvbmVkIHRvIHJldmVhbC D7GJ1xbTnsmgjoK5Fcv0Wc lVU9prTdfNKed9SqdKLbI9 M6LAO3vsRaC5DkJxEiGkRa wzEcSU95XUSmfiJeo0CuqL kgivAeSMGtWZF2We7rzUWy SPJvclOZGQ2pwWVmSFZeuo GHtKFgoR3mysQGGRteCZQy W1UcjcYzDWyuSTNzso7huB raPHgcYwDrWEKeg7j0oHG7 cVGlbQL3xDJiuWrgRF2jyJ JsTUZYGR52vYMvdvplNpJv lQqzbGvsdhN0mIXqKPHfCP D5YqNipeQcR14bm8sidYCr u9CoCRPepL8ezTGitCWeDG Xwevgwz6CumQRevCZsLyZl TFtsa6JfWE4hmXFwZVIxXD 80ZNkqBKzgptn2tBD2BGGy NCBjbSBpbiBkaWFtZXRlci ifd7drB7ebyYTod2FtpUMf oUvlp7GraTrfcvPoCLXjXF UoaxQdhIU9PY4aiYwapewn A3Cxl0OgbTL0vzGalWCzc3 OjgIJuD1X7RIV3mvHyF3Cp UbXvOjJpjxFfBN83RXOpmv Ogg4EdeDnqngXaHVSqDZH6 Ff8ziXMuIJExtgCZDY3tkW FyXHBsYWluXGYyXGZzMTZc bGFuZzEwMzNcaGljaFxmMl npQlWuUSQkDYzbA0nhUmEq O9NxHNYeYMIavAIdIMAfQV luXGYxXGZzMjAgSnVsaWUg EOKYpPrsraY1EUGALQlbLC JccGFyfQ== Embedded Images (test code = [id number]) [facility] [id number] 15:47:00 Test Item Value Reference Range Interpretation Comments Case Report (test code Surgical Pathology ? ? = [id number]) ?Case: [id number] ? Authorizing Provider: ?Leelee Wadsworth MD ? ? ? Collected: ? 08/21/2019 1910 ?Ordering Location: ? ? Labor and Delivery ([facility]) ?Received: ?08/22/2019 1226 ?Pathologist: ? Kirk Sánchez MD ?Specimens: ? A) - FALLOPIAN TUBE, RIGHT ? B) - FALLOPIAN TUBE, LEFT ? Final Diagnosis (test t2wjrACgWLEtf4ekNRCcuF code = [id number]) FuZzEwMzNcZnRuYmpcdWMx JMsgkvUxWWkml5FdJ7AnOu AwMFxhbnNpXGRlZmxhbmcx BBKaHPQ9fkLvVTPwTRblBJ VnNOpoMn5gzABkjFioQrVk HQNvo3mrcmFKkufecHf2i3 euCDDyQsM7tHEfINzhI4zo rbYywVHfBFUjOHd9eT45CB WufR4xmGVcUAzfduPkILvv mbSdbaYxSju6FCYzA6dfZT UoYPKyK8GeOL5vHGLdPcw2 HRJ7INO2eDxkg8Q5oQZhcL CgvMpoNiAcJvKlIJCIe9He UXq2qUwvZ0XgNOZoSfP9bB QgUGFyYWdyYXBoIEZvbnQ7 gW37MIvlcdO5hPIwt5Xgx0 1qj384cF6rnQVlYBI0GMPd XWAqsREzEKCzMWE0SYBjiT KeI6yePCvvAW1ijzboUCB1 MFxtYXJndDcyMFxtYXJnYj FemWIdGSNduGrrHVuuo611 WPW2SeYbHJ5hF5Wkh3Z7vE 9maXRcZGVmdGFiNzIwXGZv vf0arTQbNEhok4MiNLV3hu T7hVWabDWeHZTsOJ47Sssb g4AqFnvct8VoN07qeLK0KD feb0xcCW4qUtE9chXuSUot t5tfmZ7uWnP7HYzlTQ9lWS 7pERXmnD1slogiEUYmLmJb bwfjVTDnbLmmkiZeRg3flV vzGBH3ISqtD7axbC2yTnS8 XOmaR2rkqO7tXGn0XOrlbP C2TMUvtB3dLH2iynuse1kx USY9CArpFKJovpJ3gdZbNZ JebSUhQ8UutY38IzCkaCQd U9EgzE6kWDrbRJNxadd3Tz WzSz2kdGWlgCX8BTpdAejv YWdlXHBnbmNvbnRccGduZG VjXHBsYWluXHBsYWluXGYw XGZzMjBccGFyZFxwbGFpbl xmMFxmczIwXHBsYWluXGYx XGZzMjBccGFyIEEuIEZBTE xPUElBTiBUVUJFLCBSSUdI MEjyH2BYZLVEVUIBJTDAM6 PBJSqBPcpkiPTeFZPpXW6p UpFLKOYFHs4HGgJVWOQELC 8LZL4ZYRVACIsKJZoJOqDJ DXVJTVqAIH9SNTYPEKWklT DaEFQlshIGWvSOXNrPG5CV QY3rWQATPZeyDJMRSUzsM3 MDBVNOOSTPQSSOS0FWGShE MllptZCeYNJeefPkm4RjCL XkCDM5HYghOVksnOObGEYu jQgef9btT1EcvRJqYNMdOF jvMOBgFMXjCqMumCvzwQ4f ZjFcZnMyMCAgICAtIEZVTE swJ9XCS2TuZ7AKYKbQDgWI FyJVOXoDT2WAOD4tGTYDCZ BJREVOVElGSUVEXHBhclxw BJJhEGV3cVmrirDUEJjdtt wgTUQgIDQvMjIvMjAyMCAg EQlzUjRLSIwnPWK9q4wtqV YxXHNzdGVjZjIyMDAwXGFu a6ljYODdzQPjUpEgKfPyXs LsGgrtvTPtJVTmHqTah3ht a586uCOdz1vsFWFuXtA5gI QyPGLzuRqtirr7lWaaMnQo LTVhw9bzhlXbWmFsMLQnQW BwIUMtiUSnL446WYQuQPwn q1yzh8XxAJPxoESxw3M3LL WBRWjtNcMbB126j3yss2xb apObhAH2RMRhQHY5QIzqyw FygvB1IXknjFAdWqD6JSmj eyQtGBujwhOhjsFmLcb7WS CoO860OGA6uWusd5jqTGJ1 KMMzTCIdMsgxDk2acYLjN6 02COMvRBMTEXZjnGr5HHJj wpZaozYrmYKUp250A232r3 wvTLCfrqXuoWxSvansv4hs S947LYTlfCDkaoJfUtUoIB ByvPOlrJU8MIPzCU2xhebo HXrfKTzvUSJvhyB7XUXziJ NpI3TmEHKeXR8xchjeZVQ4 NHbyQBIsSOO5NtOrDYYbx7 Qtqcq0WlPlxs1rch43DRR4 o1LuyLphIXT8THH9ChZeKi 9tdZRiMSUhNK5jFgVsxLLn VATzpc67tDsiVAnstuVsvV 2eHuOfZREfiVLmTQKzNJ0o gKJgHJNxyM7ffntkXJFkXl MelyuaJVXztCmwmcVlZt7f bEnyKXP1AFniO4cuxK3jLk C6LIvaN6yxnK7nQRn2GBrp lDS2TRQdfF7uWC0ibmtjz4 ccEDlfOXalMNLktkX0mwK4 WMNcdXUfP4BszY6hKRYiXU 1udmpwd5gkBAS4HZndBVFb YPP0GnSxDLAmg0Qpein1Qp Qla6OfeKXrITduY94qf407 LJDmquLnH7qvnNFkqrffqJ CghzqfPUsinyQ3YOZfVHOk YWluXGYxXGZzMjBcbGFuZz EwMzNcaGljaFxmMVxkYmNo IGDxGOsoW7xtYyWzA3OvTU WpThYjiHGaPUtzgIQ9MGXk FLCvc06muSa4YPEkjtmjp8 XdQVFymCMspTJvjC5dtiNt x8qkPTBgTDXoDZCbE7UiOM B4fTJcVJYygVFasEA9ZY2b zmHmOY2fJIEnMqpwkbSpiN ZkqcLaHLDmFJoot0xdJE4b TLCuxRrltK8opPY8XGLik1 rlvKFqdEKku4hbb3NawhYp ZShzKSBtYXkgYXBwZWFyIG 8hFKMpxYXftqVbp9X9Zxrt nOFlhrglJmfuhjZ2YJxlpm skPLFwFDwzC0fiEaFpJZOq qObiVolng0QaDLJrWRBaIx hccGFyfX0= Clinical Information 34yo s/p (test code = MPDPS [id number]) Gross Description (test o2treLNfEERncRWjCxZaYI code = [id number]) GtLONfv5ojBQHpnVSpPuLj MzNcZnRuYmpcdWMxXGRlZm Rna9mhs559pXZix7vaCZVz PuQ9pYWdDAOtjWKpE280NC SfDFpok9wkv0YcDUUrqHZz y1J3EMWMgzjcgHw6d0yzXx EwSpK5iOUhSLdjV1ehdiOy eHCaIPEjW2YchnZTUBHhLm b0xBwgT06nq7X0BhoxW1lf ZWQwXGdyZWVuMFxibHVlMC G0GSVkIYA4VCstiyZkabT2 HWfkqKYwKgO2ZMv1d0kmhE sbDSHiBOF6w1qgYGrhayLn VA7tzh2qsDu8c5izeaVtFX UaBLJxzWOUHIAmB4PmpKbk Ri4okJp3zCioJeysPZX9Ro q4PO9kqm91aac5bReoQKMd qirnMwJ5NNnyTPRakyrlZF l5AIjjDAWgsZUmJMEprVUf U7HpMZhjPX8mbib1UuUtQR 6pjgddXVooPMVjUNZ7TpEx AFVdh9EhgmnqKzFpyw3loc 21UCM8r4ReaSapPNE8LOO2 HnRoSm1ifVRrBKJqDM3kFx CcpQZbILEheg82tZpmUPnm buHazR8qVtGvNMZufIEtDL OvGB4giWSoIBCqfU2dfokb XHBnYnJkcmhlYWRccGdicm QkZf2tiYkhHSJ3ARuzK8xb qZ1vPsB6XWafP9vueW3xPN z2AJtmxVO0XASjrY6dZV1g glbct9jaSCH7ZDhtDQWkxi Y2hiBpXRDvnSCeD3JzuY18 TqUrzOBvY8GobN0cEFcwPB Bgtcw1SoGaHo4jrVFcwZR1 MFxzYmtwYWdlXHBnbmNvbn RccGduZGVjXHBsYWluXHBs YWluXGYwXGZzMjBccGFyZF xwbGFpblxmMFxmczIwXHBs SVuzNVOrOTIvOmGrK9AoF0 qfAG8jEUKtprAoSYXaaOUt GBUcgdTzk9YqWOzxvtVmDV JlbGVkIHdpdGggdGhlIHBh wAphxnAiquIxUX5tRAWBYB ZjoQ4vSRNpIEJsLZaoe3Xq PW3opBXxIIbdtbvnrSQzTT ZqBHWgd92epMT4flKeEyNy HGRxcuejLTD7EX9stAdixd OgXYweCX69HS6vHOIrtLiq aEmjjgL9jESiOPvnQkwzwF 0ptVLqM0ZyYHgwKM89JCGd AInfEZoewcg7nRbax0ybZ2 dypSIjs8MqjFIwzTucx4Jh dGlvbmVkIHRvIHJldmVhbC W3ZI4osVjjowboZ6Jfj6Es rKF8dtSrjDEri8DdrYCqJ9 V3APJ7omGtS9JxYgOqNjPg aaZyKD97WNWeckNrl0PweE eppmPiJOBpGZP4Uz3riBXc CPCzjiIAPE7zfHUhWSBeup MSfJHhbM4nvsYGPYigILCc P4IzlkPzBTyjPYAbgx6udC moTEvqUsUqCHEjr7y6eSE0 hSVfgKI9pGAqiKesEW2oyF UmOFFFWH58iWOsznjbYiKu mHdhaWnofcZ0rIRkTCHtEC X5WkRdlwIcA07zy1nqpZCr e9IrBDVwhQ4uvUMtzVNmRG Pqebmnc9TvqDAhuQQrKsMy KCxav6EaIZ8gyRElQNWhCM 15RCeeLBysldv1cQK6ZYIj NCBjbSBpbiBkaWFtZXRlci xfk4nkE6kjbMEhd2BayYZu qVhzk6PdfAhgwzZnHRPmEB HcjsIsjRN8MD8uePttmwsg Z5Ics7XgeVD1dvJkgNTua0 ArhFBeH4I3XOY9ftUwL8Yp LzApUzFfmyMyEE99LBYqou Pqh8KatJqpagQlKNQgOWH3 Tf3olFWsIKZahuTUOH6gzE FyXHBsYWluXGYyXGZzMTZc bGFuZzEwMzNcaGljaFxmMl qrQyRjHCDhRUncM4qjEsCc J7LbTTLjVOIqyCEjBIMlMT luXGYxXGZzMjAgSnVsaWUg KRACpGgynkU0EBQRCGizOP JccGFyfQ== Embedded Images (test code = [id number]) [facility] [id number] 15:47:00 Test Item Value Reference Range Interpretation Comments Case Report (test code Surgical Pathology ? ? = [id number]) ?Case: [id number] ? Authorizing Provider: ?Leelee Wadsworth MD ? ? ? Collected: ? 08/21/2019 1910 ?Ordering Location: ? ? Labor and Delivery ([facility]) ?Received: ?08/22/2019 1226 ?Pathologist: ? Kirk Sánchez MD ?Specimens: ? A) - FALLOPIAN TUBE, RIGHT ? B) - FALLOPIAN TUBE, LEFT ? Final Diagnosis (test w3qbcCEgWMEdc7voTJUpgF code = [id number]) FuZzEwMzNcZnRuYmpcdWMx LIvzevSiBPrsx8GmO7HyZr AwMFxhbnNpXGRlZmxhbmcx UIKjYCL3tlPsCPKdYFmcFC IhIOepMb1auAVnhLieCjUc ZNTqh6pvgxIXbdwcqFv9o7 uvNHByBoR5aPNxVMgsO0ft gaOlrLKzLRYzAJi0rS93TK ZpqY9loJSuITagbmTnOBkx fiXgecPdUbn5YREuX5pyYX BpYAVmG4GxLM4bOOVqQai0 ASW3QXK0oLhpi1H2jUPxwB FkbLqrSfOuYnFmDXGYj7Hd PHi4uNlaK6QjWLEiIaX2aV QgUGFyYWdyYXBoIEZvbnQ7 tO12PHkohfX5gULlc1Osp9 0cu795fV1biAKuCDY3GXAc UBUzfHFiKPUqLFY9VQJplL ZcV4xvICcdBR7fxvvrMWT5 MFxtYXJndDcyMFxtYXJnYj LlsPHdUIRuqUhyHVaux027 RPC9YrLxYZ8uD6Kxp5Y9rP 9maXRcZGVmdGFiNzIwXGZv bi2yaSObLEleo7ItICJ2hn D7iZBkkJDdGYJfSH29Tpgt f4PuAkqpm6EbR52hcCC0VW vaq5xfMZ7eKbA2fgXkYQeh p0eccF2gQzI0VBbaED3zFD 5fPDVfkY6bynluMETcTwXa ewazIFCmtBoruaXoFa3okK xbPML9SKylL1dmtD3mDtU7 ZOrmV2cbdT1wTWv3RXwohS F7ULJumQ0tQE5sgexak7pl EOD7IXloAKVkcfF9gqSnPA PbhTWjN1FrdD09JqBfpHMp F1PavZ4fJVnvIHByivm2Tt ZeNg1uuWAptUM7OXdaHtlh YWdlXHBnbmNvbnRccGduZG VjXHBsYWluXHBsYWluXGYw XGZzMjBccGFyZFxwbGFpbl xmMFxmczIwXHBsYWluXGYx XGZzMjBccGFyIEEuIEZBTE xPUElBTiBUVUJFLCBSSUdI FHmaG9SYHYJWCXLEVUMWW2 NJJDiPPixwqPRnDWHoLE2a TfANRLLZVh0XFxTOEDCLTX 3NTC8MHYYVZXmUIXgJGjSO WSPKTTuHTT4VVWEUNMMhjF QxOOUqavSFQhJHRLxOK3GK ZY1lPMIEVBicKUBRIKbnT9 GGKSLLVUKCDFBNK6XENErU XnnhyIMwAVVugySws6PjPR UqZFR6TPzhTNfcaQDtWNWu wQrhr9hzY5ZjsNQsPXLqGD fnDUEeKDZfLdMfnBuggI4f ZjFcZnMyMCAgICAtIEZVTE fqU7FIG7RrE4IBIUoYEbZH AgZHRUmZS2ZJAK2bJHCORI BJREVOVElGSUVEXHBhclxw YZWmULD6aZqghiSRITvcmy wgTUQgIDQvMjIvMjAyMCAg KYdyNpJVMClqBFX8v6rdpM YxXHNzdGVjZjIyMDAwXGFu g4qnJOZhjAHxYoYsYcDoPz HxWhfnyHRdRBTuVuLtm9gr k239uARsu5jfTGOqDsG2eN LsEPUkbSrirmu9oOhsBcHw JWMxa5hxybPoBaUyISCyHZ UxCXYujILfI585ZLPqGQqd r4gof2CcGHBlaBRey8Q4SY QSRPkyMoRrP967k8drw7tw rqLrtDA9BNRvBMB0FJcscg LaadR6SHuymENsCiV0RZda xgHjBZftgfMzncZzLvl9TP GmY134RZG9bHvws7qkYRL2 OACfVXTzAlkaDv0fmTEmP8 79FAUfYNKPPAXiaMy9DQJx qlKkeyMhjGIQe035Y027o0 ejCYIqrqLguMdWwcrsa8qd Q736OZZoeUHwlsLuXwIcZG YabQGdaRY1OPQqQE4qznzl JCtuNEmgPFMbfaI1VFUowE ByD6CwCAOdYQ3cxweiMCV6 YMswSQPkOXB5KgItAHTrq7 Sljgd5GyFcoe4emn03BVV7 k5HznBuuRID9ZIQ4KzFlPl 8kjTNyZVDeYX7tKnMzuTIe UPUnqv85pGdiMSdvrqEgkP 5iWtGsHJJukUZmFODaPT9l pTXwTDGflZ3dnssyZGWoLo GgawusFFPaeOjjqaPxPd8p fAciNEA3NCekV3ltgJ7nEp T1MLbbU9nzuO3nBRs2JLso gJT4ASGuqK6kCP0fddgbq6 jkNMbxFXocJWDgcpP9yfZ1 VXOgcXHhX4VhwQ0kFVOjZY 7nsbpvn4neNWW2LGxlAYSz ZNE2IiJzXCQhr9Fzyib6Io Zhs7RmfEXuGYpuC95ct083 YIGdzsPdS4tehXXfgbsseP LfnmkuTRsnqnY6QOXhRXPd YWluXGYxXGZzMjBcbGFuZz EwMzNcaGljaFxmMVxkYmNo DZRjTMqhN2mnFnKhV2ZbTU NlQiXozTSrNWtlgLW0YDBi PAWzg10umZn2CRJtydlej1 YmEOCerUEuuNLnvC2ixfEe p4nuFGUkJRWbFXDbJ4RoSI W0uNMfXNUcrSGvjRI1GG8p ebGnTX8eFGEtKjagrdXloO HeubCiZUHtNNxpt5koLG9f NCMtmWfatJ5doKN2BHVwm3 cxtNEowJJmf0oya6ZtmcEi ZShzKSBtYXkgYXBwZWFyIG 2fOAWcyTRxlhNzc3B5Npee iVCffpblZfpuqhS8OAmcnr cvIQMeLSwfH9hsYwEfPVYe vXfqVtyqh3WgZGYyOVMsRa hccGFyfX0= Clinical Information 34yo s/p (test code = MPDPS [id number]) Gross Description (test l1iauBJtQYTmbAMlClSeSX code = [id number]) UgGDBgy8rmJGLqtASwJsOf MzNcZnRuYmpcdWMxXGRlZm Xad6dbb768iFOcp9xjXZIt VzE4sCZpAOBybEErB481FG JpNJjfp0xyx7WoUIFbgUPo g3B8NFXCxaphbZx7k9ujKp YmCzL2jPRmSEayS2yqtrFc xFEiPBDqX8NlfmPSVCLyBw v2eLgfC12tm6G1SydrI4ak ZWQwXGdyZWVuMFxibHVlMC I7VJRxCUB7UNtacpZunoA1 HGcgqAOpPeC1TCm6o1evpY ayJFOvHBN3r9dgQAgbcpCb JB2psc9krVp7n9qnccUrRY WiBTDmgOEUFMDmO2FblIpt La4twVb3kBerSppjVGE7At g3DY0shx91bwg8fJqdACDz yluuDfF6RUhyMOBxwcuuXW u3PSblXOVbgANsFVUvbHSt Y2NeJCsdIW4tuix4LqGlBG 2oniqtNAycKJMnDCP1WmCj RZNiz7HvbkzxKmFqsk3jdi 54VEA5t0OsxNgbPCZ5SQO1 LiUiDk1pvVQjRGYkXP0sSi CedYErKNMgfx49eZqkFSeu sbQooR6zYqSrFZRsyHNcJA AoKD4xuKEwVTFsxY1oeyer XHBnYnJkcmhlYWRccGdicm AwIo1srOjrFZY3PYkgN5vl gS4kAsQ5KVebQ2empV7cIC i8OQhdtOG7IRGgcH6nEH4i fwdpd2gdKAU2XBxaEOFaui W8ajUoCWEanWDsL0PfwH26 FxPjyQDyO5ExhB5vAWitER Veaix5SpCeXf8moKDtwXZ1 MFxzYmtwYWdlXHBnbmNvbn RccGduZGVjXHBsYWluXHBs YWluXGYwXGZzMjBccGFyZF xwbGFpblxmMFxmczIwXHBs HLxgDWCsEEPeIuFsD4VtO8 vhTH0dNGZxspKsCWNahRAb DMWuelAgg6PfBAxzcpVxIS JlbGVkIHdpdGggdGhlIHBh nImituFupdYlCU9nKBXZGN IatC4zFPIwSHUxUMmin2As YO5tpNBpSRcssvghpTQrMM OkKZLyd86bsTH2qoNeNhDl MMAdxjlvGCP9QY4miSrtlw OmSKstTT45YO6gQIKoxXxg lDumfsP0dJLpKVrkIqzooR 7udYMbT3TeWRtjRJ86KYZv RAbuHFewiap3cXqyg5kbE3 dbzPLdz9LptEXosIuwx8Jp dGlvbmVkIHRvIHJldmVhbC U3QZ6upMfgzjmiN7Znh1Ix sWL7hsEftWVgm9ByrFBxB4 U2TQJ5xyZbQ7XsNwHrLiRc lgEqAR89MHDuxbZzn9MqdJ hbjrQhZMMcWLT9Ud9mgTEg HMPkhtCYNE7uqOVuITNaea ZTgEUnrW7rdtQJKCeoIJUq E9IcjiStXMriROPstg8ujZ ddRHtvGwBoLGLyn2x4uYR6 cSKadKM5rBJtsQzoGJ3acF LdZTNTUX11bKYgetyxZgAd rJjftLicliT3kXOiMPWyMV C2PoHzjaTjY21yz9odtURu c6FtYVJxwA3wuRTgdNYbXU Qizzafp3YiwNPlmLWwLlTg QItri1GoIX7ujXTrNJGnMH 73FEdoDPubxxg4uUE1FMEg NCBjbSBpbiBkaWFtZXRlci kot4mvA6kuuHAue2WkoRVi eDicf9FswMumvkVbMYIsJT RirtNmxZD9QP5huOixnzjl P6Wla8DpcVD0ogFisUTxi9 LglOWqT9V2WYY1ffQrR0Pz GgVsOhJkioUfZW00IMFstb Hyc4VwuHmietWyMFAnHNV7 Bx5aiNHpVUIpseRPFM5vnO FyXHBsYWluXGYyXGZzMTZc bGFuZzEwMzNcaGljaFxmMl fyWiIrTWLsECifO3bcWqDj B1QmCWRuGVWpwKEsULZgWO luXGYxXGZzMjAgSnVsaWUg PNTAnDizqyT9TFGDJTjtRY JccGFyfQ== Embedded Images (test code = [id number]) [facility] [id number] 15:47:00 Test Item Value Reference Range Interpretation Comments Case Report (test code Surgical Pathology ? ? = [id number]) ?Case: [id number] ? Authorizing Provider: ?Leelee Wadsworth MD ? ? ? Collected: ? 08/21/2019 1910 ?Ordering Location: ? ? Labor and Delivery ([facility]) ?Received: ?08/22/2019 1226 ?Pathologist: ? Kirk Sánchez MD ?Specimens: ? A) - FALLOPIAN TUBE, RIGHT ? B) - FALLOPIAN TUBE, LEFT ? Final Diagnosis (test y9xppJEhDGZbl1yuBCUupO code = [id number]) FuZzEwMzNcZnRuYmpcdWMx RUopvkNvPGuly5YdC3UvXy AwMFxhbnNpXGRlZmxhbmcx IKRhCJY7tnXhOPCuOBbgCS OoPMsjJi5mrEStsFfbAtMv FAHpo9vnanGQorynyZf2i4 etKRBfVwA8vHCgPQtbA6pp dgDchRUoHOArWAg7sJ51DY DkrC4tjVNuYJtrlxVeBZug rhAbirSzWif2QLUfT2txAW YmZQCuF5DtMH5cARZcHqu0 XOK8ERX5jZirv3M6tCBwmY LdqJopUoNqIfUhZATSs3Tp YIw9jQbtU4IfYBMrBpV8xG QgUGFyYWdyYXBoIEZvbnQ7 sV60OSpignZ7qUAdj1Qmy7 4st121jN8foBZwGOA3YXWk EIYajYQcZNBsZPM4KFSeeT GhP7ipWCtmQG1gqblyOJC5 MFxtYXJndDcyMFxtYXJnYj BthJSuGFXfuHjfTUgoe214 WSZ3NwPfFG3cL1Alr6M1zD 9maXRcZGVmdGFiNzIwXGZv fg8smMIzIIgyv4NtUYU8dc E4vZIthKVeECRsLC78Fbnq m8FlKifur5OgS34ynZO3MF cdy4flZF8aPxC6pzLdDIni g6yxrO9tGrJ7VSocHX9xCL 9bJOWuxP9ngnpkXWTyYvMk kmvsJJFutBmmidEiGe4wpD noVVX8WCjuM9gzuE3sZwQ7 COsbX7fskP8aXIy1FEklbN B9LLGjoA2iTZ3fznikl5zk SKK1PWbeNDGaliY2ocVrYL RiqAOyH0WfqV62IqQnrYLm R4EhxC8mZRzjVBZkkaq6Qg IsZy5xfHYfcQP0CDkiEcll YWdlXHBnbmNvbnRccGduZG VjXHBsYWluXHBsYWluXGYw XGZzMjBccGFyZFxwbGFpbl xmMFxmczIwXHBsYWluXGYx XGZzMjBccGFyIEEuIEZBTE xPUElBTiBUVUJFLCBSSUdI KAaxH9QGQPKZAGUDNTYZB8 XKPHjEDggmjYRjAVTmRA1h WjHYVDILWb4ITtOQDKUPNZ 0PXQ2QUXWBEFgVGDqMKrWM OLOOFBpIZI2UOPKVUWAjnQ WdQBKectZCQyWXNEgRN9YM BQ9dAVOBLBimOBNGYNpoW6 XVFIXCSZHNXMNPB2IXEZeQ UzhbhHBwEUPfixBub6OpUP NmCAK9NLgvSRhjtHWiCRGq pVatc8goG3JrpQAgDMCmIW poZONqTSKaZnJxuQyjvS1q ZjFcZnMyMCAgICAtIEZVTE fsN2NAZ7MtL5LXJSpEXgNP QvCFZPtFN7XORI3nPQMLAH BJREVOVElGSUVEXHBhclxw PRBbAFL3lNsrptRMZVtdlo wgTUQgIDQvMjIvMjAyMCAg XLjbFaBPAGekWOX5e1tsoR YxXHNzdGVjZjIyMDAwXGFu d0ukEEZgcRNrDtSbTtSgUd EmGavuuZZqGWEvGsQjt6ui f727mVEcs9jfKASiBfJ3bT DiCROygZfrpkk7eWppPpZa OOXlo1jzigAqMqFhSTRjGX YiDGRhxAQoC800MKLuVUtn z1rwi8GlZQZenPGxo3B4XZ DCMFakSnQyT978y7mjl9lf gzQjtWV6STHqEKF6EQkmib PhpyD7KFmjxRGuNxB4PVvj yqYwABbcaaZehuYzOwl0ZW AzH477QJZ3qCbij6yxYUK6 YWIpPRXgKbyaIo6hyUCzK9 85NPEfYYBMLHJjlWn1TFPi fyNeajAxaXPCz732X824x7 qeGUPwkrLxuNbKjyyah4px T574RIUrpJBwwkLdVfZpGQ VbnONygVC7FJUaME2ufyzh LCmvRSxuYJMverY9PQOvgW YkP7VcUNDpFG9hzwotYMP9 SKkbJHKsFCS8PpDyAVOdn1 Vfsuu7EgUhkj4oev04QRS3 x5ZzfSauGCZ8WBU0PvZfQg 3glKPyNLTpYP5hWuIwxBEc SBEvcn90eYwcOHolvrYtqC 4qNwPaRDNkcIKuEGXtXO5g uPLpQQUfnY4tsexqGXWzNl FucxjrXJCndStqfiGiLp5m fRbgITC9PNyhQ8izaX2xFn P8ROfnI5fwpG0fQNe5KWvq zJQ6NXAptW4qMC2kdsjdw6 mvCUkbZAnyAWRtrpS1wqA7 NQNmrVCfR6GigQ5sPTHzKR 9flcejb1atGEC4IZtcXNNx HLF4YsDrXBVmr1Unxua9Wo Sig1AzvOOrCBbwH68ez694 UQTxcbImA8nqkITfxqflnF PibwozPFwlalC6NJGyXOIp YWluXGYxXGZzMjBcbGFuZz EwMzNcaGljaFxmMVxkYmNo VMIjSPhjA7muIoFhB6WfDJ PvAsKzhDWlRQcqxXQ4DGMi OKZvd93yjOl3NHReitmni9 IpDBAqyTBhcSCkhH1ufyYt t0lrTNJuCGJqVJElT9AtSA J6vUFxTXPrbHXigUG5JI6y jaOzLX6pUOSbKzctzsGieW QdndOnMBRlGRhzu0zxAW3q NEShxFbcaY0puYD4VCKev8 xayFMubAWuh2nyk6GyttXo ZShzKSBtYXkgYXBwZWFyIG 2mDZItuWOcczWjn6R3Ykfb mFGpdhtrKbyvgbX3OHaxtb ltQLDkRJgiO4tgEoHeFBKp fRjuKzvxu1EzXEImTZExQu hccGFyfX0= Clinical Information 34yo s/p (test code = MPDPS [id number]) Gross Description (test r3ffpATjLNSceTAcYoFnSU code = [id number]) IfGSFhi2kjUYZlsIVhYfZf MzNcZnRuYmpcdWMxXGRlZm Liw9khi574gXSmz2xoWEWm MpT9zPJvIREalOJlK474PV ZsMEuup7jcv6NkNSFynWUt o4J6AEIKvmugcKp8c0pqUr LvVkV6vCWyXVpmQ3cusyNw aZPzMWHzN2JejjFPXXMbHe t2mJccV03rz1I8CntrM7ox ZWQwXGdyZWVuMFxibHVlMC U8TTVlSVU8ROcchjOpdjB9 RRunkBTiQlR1JWt9y7renF tlAAJrDEY2b9hsIIkpibNp CB6hcf9rrWs5l1sdnlTyJA UtWJOibFNKEDFhX3AgqFfi Xa1lbBr0uPzjZalvEEE8Nd i2HK8hig37gpc7nFbgWOWg zuvgZhC4IDwbCANgchojAD r5HFjyCDGyzAWzFNNexWLa J2TpAParWG1zvvo2RcMdOS 2kayyaZSeyYRSnANQ0TdYx BJNhr1EovtsbRwAzrq2wqi 16PSY0i2DvgWndRIC8JIB9 WlLoYj3dgQBgGIRuHN0mWr WzuFWaEPBnjo67vRywHVxk snDcqS5kBiOtMDXsyMJdNI RePN8sxTCqUGIraT5rgnbf XHBnYnJkcmhlYWRccGdicm PuMz9evIjpKYG5JZgtS0cp wL1zSsL5PBklX0anfC4dQI e6MMghuZN5ILHqoT7sTO3n opcwi0btMBO7ELhxBTAfxp V6dgHaAWKcoXUlV8ActH54 LiRzcISgJ6NyhY6nKAbbJM Seqkn7ZgRcUj2mzSVxgUP5 MFxzYmtwYWdlXHBnbmNvbn RccGduZGVjXHBsYWluXHBs YWluXGYwXGZzMjBccGFyZF xwbGFpblxmMFxmczIwXHBs IQrmECKmNZRkQoNdR1ExD9 zdIT4rNKZobhAnFZRhtHQa OKEecnLhc3FyOYajyzRsLK JlbGVkIHdpdGggdGhlIHBh bGedvcVmohXvEY7dFQXGMK PbqK0oNHYkBYEeFLlda8Ca DO5cgVRwATogjfhqiUIsOK JxGBQor25szHF3dfMwBvFk EGMlvnmtHXA1DQ1yvMradr AkTMygBQ50LL4fXVBxnOaz oYnggdJ7kYHcQBblBauwwD 7avFMlY4IeOCywFP69KSLu WLwwNSlrycf5gMatg5vgW9 ytjTNpi1VzoEDaeGzcx3Xg dGlvbmVkIHRvIHJldmVhbC L2WI6qwLqlawcnB3Kpz2Ai sWI4muMxpWYhx7CaaKIfH0 G1MLA4nkNmF1KrErUaPgZk ktRnYH66OPFjagPvf9FlpC oinoMeOBOzWEM7Gu5osUNj QETxsbOTNT9miGEkXTGfqb NNvANsmU1qeqGHFJbbEYCv V0OldoXxBRiiMFFdyg5jmV nvNCwwQwCcMQWdi9a3hYY3 hDGaoYZ3aITyvCgaLP0emS AqCMVXRC00cWQdnvljGjMq pCnufFzjhzH9jASnZVLbFI X4YhXqraDhF12ip4dyaQGn x7YoBRXiwR4ndISgdVVwRY Rcycaig1IqfQHgiPOsWtDy OJcrz5FpGD6avEZlPLBcVL 00GRerDOgllhp5nYX2KKMn NCBjbSBpbiBkaWFtZXRlci qop1phW2ftrLWcl1GfiBHv oHkvl6DspFqiufBuVZTvJJ KiuyJitUT4VI7myPtszezc Y3Ini8FgrZN6okFcfXJps2 VlpGJxV8Z0GDZ6btZrH6Kr HtXiTyVoqiCgVP77CMEobn Gdy8VerWcdkyXgWSKdEEM1 Rh5dsPOoUHYhorJBTZ2nqZ FyXHBsYWluXGYyXGZzMTZc bGFuZzEwMzNcaGljaFxmMl agBfFvECIiPRreA1deMlFu N9RkFQFlPPTlvWLrQDLvJY luXGYxXGZzMjAgSnVsaWUg WVZLiZxscvD7RMERIZimYG JccGFyfQ== Embedded Images (test code = [id number]) [facility] [id number] 15:47:00 Test Item Value Reference Range Interpretation Comments Case Report (test code Surgical Pathology ? ? = [id number]) ?Case: [id number] ? Authorizing Provider: ?Leelee Wadsworth MD ? ? ? Collected: ? 08/21/2019 1910 ?Ordering Location: ? ? Labor and Delivery ([facility]) ?Received: ?08/22/2019 1226 ?Pathologist: ? Kirk Sánchez MD ?Specimens: ? A) - FALLOPIAN TUBE, RIGHT ? B) - FALLOPIAN TUBE, LEFT ? Final Diagnosis (test u1qaiGSqZZKao3muGCVttF code = [id number]) FuZzEwMzNcZnRuYmpcdWMx SWgiagVnZQdbg7WmM5McAa AwMFxhbnNpXGRlZmxhbmcx WXRnNUL2wwGmKHPcDPvnFY UgJXtxBt9kuVRaaUrkJoMn SYRus5dvjgEOgnrhaJh1d6 sqMJMqQxE6gQTuVGnmA5yx djGpsQKeWJTqTWz9kR68UC AdxA7ltHMzCLybskQqBCyb lpRlimKrMlw4KMIsC3vwOE OdMZJrO5MkRG9zXYDwXvk8 KCO3WQK5eHjav9N3oRRkxS KesKxaFkIqDpHuRVUMv3Om NBt7bQdaS2GyOSMbJaN8nD QgUGFyYWdyYXBoIEZvbnQ7 oP80TGlkgkN6wHGxn0Coj3 0cg043lV4ntMCjYAA4HVWe RSIkxWVjTFGnBJZ1FRPfcR YvR0msAEmlHX6phgwaCLB4 MFxtYXJndDcyMFxtYXJnYj EsaVKkRWBxnHjkDPhxk944 RYX5LxEmSA4hZ5Jqo3N7zL 9maXRcZGVmdGFiNzIwXGZv vy5tvAJuTKxpu0WqZJU1db G9hHZiwYLuJAOjPE12Fnxc b8WnDaigk6BpW15pgPJ2AV ikz2pyUD4hCkL9spZvTPgp s8aeuW8bFsB1STuvLA7rUX 9iDNUruS0ukmbhNNAcRgWm ryeyVMJanLoysgIuGe1tyT mvZIH5GHzfQ3mylT2fOfB2 NYrxR3lmnP5kVYp9INijfD H1QTOgiX8iLF9eogqcu3rd DUQ1REdqZSVmtbY1uvBsBS SwnZVuF8VonZ35KmWbnUJb T4HcvC7pINrkNIIieux7Pd HwHh3xkFSrkIF0ZXtqXfem YWdlXHBnbmNvbnRccGduZG VjXHBsYWluXHBsYWluXGYw XGZzMjBccGFyZFxwbGFpbl xmMFxmczIwXHBsYWluXGYx XGZzMjBccGFyIEEuIEZBTE xPUElBTiBUVUJFLCBSSUdI TUyeE2HPSANVACEJRKPWE4 ZRTCzRYqlquAFoDHDhUI7b PhXNTFUUXh7PElCAEQLZHS 0RYZ8AZYAVTPkXENcFYgFC QZAFALqIST6PBKSHFXUiuH ObGJObgdNZRrLMQYdUV6KJ ZY1yRWSIJRzbXRFSOKcfV8 OLJXIVDGWBPUJRJ0MRQCbB CznnqLHnORAthgPvw7GxWW XhCKI5XPacIGyylEViOTOv rDbcx4jlR6TowENtNNYwIN nrGFFpRDZxSnRmcMmptK4e ZjFcZnMyMCAgICAtIEZVTE ipB2BCS3BpK5IETYpKZjTN MiRJNIlHN8VBQJ6lCXFWYI BJREVOVElGSUVEXHBhclxw RHWiEDB1qVqubdTSPMlzsw wgTUQgIDQvMjIvMjAyMCAg MPucTaOLLCijJCQ9t6lriV YxXHNzdGVjZjIyMDAwXGFu b6krWWFrqYFuGqQpMwQfFi ArXrmxlWSyNHInRyGch9rm q093sLUdl4glVZOoAhI9tZ FfKEVklIstzgf4pPjfGyCp ZFRiz4okfvSbQoCfJMEbFT YhTKRloSKnP309ZMNiFPte g1vst6OaNRFrzTBrk1B0FA OFERuxPeZqW970x1ekb7qg omUmnGQ0ANZkZKZ1ISoriw FdmtV2MLlewDHmVaR8YCou pkWrEGkdraAfixEkOwf8IZ RqT071NGU4fVvnt3xqZSE3 YJGxKQDwGeduRh4muASvP9 76TGDlTHNYIWAxbKa2BPYc bvCadwBtnAOEj862G585x1 wfBOBydpKrkPtRpmnhc5ec I886AOYqySAiufLkHqKzGF WyyJEtfJG2LLYnUD8pfylr PLbzRIknPPNnyxL6HVZomA MvT6FpGFMdZO3cfxliBQY0 GVurTYYbEOT3WgQgFFGrl4 Cpgou7QvNuza3mdi87SOJ3 k9AsgIxbTHC6JJM2NvWuLi 5guMAkMFRkPV6sZkCmlSPd ENAhua93iLoiONqydjJljS 2mGxBlDLIibWPdQABpGN7m pCNzGBAqfB8suygrFSCzAe ZinrucPUArqYcovgUzFe7c hKynSRF9KPuvQ1jtrG6hTp V7EXwrG6gfvM9vEIn2UQtg mRR4FBQzoC5iIJ2lutuag6 jmANtuLSeeNTGmnmH7alE2 SKSipDIuZ5QuaF8kKBMyDV 9golfrc0juQYD8LOklYXEj VGG8HkDmRZHpv7Zzhsu7Ny Rht2UkkWGjQFatG77qb301 LHLkbhUgU5ojzBBqqtqkmT SfdolcJOldubI1ANVgRKIl YWluXGYxXGZzMjBcbGFuZz EwMzNcaGljaFxmMVxkYmNo VSJyDPzvM9lpYdXmD7HeZU DxIwTxjMVzPPxhiIS1OOZt CNIyn51kjIq1VXUcbvdkx4 VcVYCbiNVjxCEwxW7oteFv f7gaDALcPDWhOESbL2StSN M1bNIiUIZyvWFmaAY8FT6p nnLrWF0cGNNkIsbnciIrvB DzgdYsWKSaHQnrn0xhUU7i WCQbjOcfpI4tjIV8KNToo2 kmpKUqyIXnk7zxf4CfsbIz ZShzKSBtYXkgYXBwZWFyIG 2zHNEflYCezcOvm1D5Qimw xEPijrryUawedtV2MNcjae qrYAAbIFntB1mcAeGoBXTn iQdnOjjrn7YaSFQbHXTpXq hccGFyfX0= Clinical Information 34yo s/p (test code = MPDPS [id number]) Gross Description (test b5xmxUErSMKcfFZwUnWcBJ code = [id number]) VhXEKzy8gcQMAccMJsDqPv MzNcZnRuYmpcdWMxXGRlZm Cij8ykp331pNHci9qcSXFt SyR3fQUjMFVavBFfC447HW WhTPzlz6nhs7WuQXJmbMQz q1J0QMMFzuyxzVz6u8abYs SpKqP4gCFwTTyhW4jqppZg jKYeDQLyM0BninGGAEDpZd y4xTssW31ua2I1YwzsH3xh ZWQwXGdyZWVuMFxibHVlMC V5NVQxIUP0AJptpdYzdjQ9 EUhglOBnLyO4JWy2s4zubU tpDHGbOAK5i3bhALnsplTt PG8aeb5krTv7d5nxpaXuHW VjNPFfsJRMAMHnO4FevNhb Vr0mgRf0xUboGzwkTPI1Df q3AG2pvi82fov0zJzsFTVk dkaeGpX6VQjaPUQorqywZB e5RGwxHJRmgGVaCGGsuZLj O4HfUFyiUE0lcde0TiUfEZ 1inyxxGSfsHMCtWKY8HrDk PFAet0FillzbLvFrwm6fic 41SHO0c4WlgDgbWXO9BYA2 CsIsCr4wmZQvIPMsFT3oJj TjrDTnQBHtgn52oGwwWWha zzPyvJ3wJmLaJWWogHPfMR QcVR8yuFYdVLVcoO8qbhxr XHBnYnJkcmhlYWRccGdicm XpOg7ctGvkVRR6UVoxZ2zw yA6oFyP8TTkjC9aubY5wDO s3HSussWH1OXVnfW5wNH2b kfgns6keTBF0QXryECLane V3irWdVDKzsJZlM4LqfW43 JwJgfFTwG2LceZ2fTOjnTT Dqihr3YxHbIg6wbJKzeVZ6 MFxzYmtwYWdlXHBnbmNvbn RccGduZGVjXHBsYWluXHBs YWluXGYwXGZzMjBccGFyZF xwbGFpblxmMFxmczIwXHBs LYmbXFMuZDYcQcLhN6CpX8 fiWP3fMVCxqvBjDTYixWVb SYUfsyVut8ArQWyxbeQnMC JlbGVkIHdpdGggdGhlIHBh nSlvetNyidZiQW2qWCTBLO KtjI3xFCLaIALmXHwoa1Jd ZZ7ueJSzZRlgyfrqhMIqDG LcIZLsk17aeGB7pcJpVaRh YLEnvcrxBQW3XB2gdAhcqo TeXWdbHW91YW0pYSVecJvf eFdkbqL8aGOqAFxfXwwhjL 2ncIJmX7XvDTdmTL59ZUFk HNhzOIdbbvm4gWxvq3vjL5 awzWXbw0OqtTLpcEeql2Jb dGlvbmVkIHRvIHJldmVhbC O2LR1slLpwbqpcJ1Cnz0Md oZF1vcWkhTZxt8NdsCWdR9 O7IUD7usDwS8IyPlLsEeFk hoSpTF47USXogmXpr3IamV evbsCsYVDqFMT6Nf7rbEFm ZWMlogESJD3ceTZrQHPknh LPjQQyiF2klnSSSXkcKDAa V3DkqsNcNLxjKNSfzl5wgJ wkOQnyFkYmPZRpo5m5rJT1 fYQgxUQ2qCSlgUglVO8zxU UwJNMZZT23cIDmglugEzSe uDqzrTvmjwH6gRYeCDAvHL S5YyMsbzZnH94ej8wxrIIi y8RwSYChlS7kaKWenHIhST Uwxmprj1BubUQzfQDgSlLn LQagj4AmMJ4yuLAvFIUsIL 16WTeuAKqjorw1zWN9CNOd NCBjbSBpbiBkaWFtZXRlci rak3foC3sauOOji4MbsWVp eWbde1MxzTqfpfPxUGQuTD AyibIfzMN6GA0efRtanskq G3Nri2AmqIN6vcZmxGDry7 LxnWUwL8E6HUD3ahOpE5Ry SzUkDiIgysQaWY36MTVuwb Evs4VzkIjnjbHeGVVyFDB5 Vv0afJQhAGJvrwHQXR8fuE FyXHBsYWluXGYyXGZzMTZc bGFuZzEwMzNcaGljaFxmMl rtIyQzIQRuBTpmQ4flTqFi S2SaUHOgAALeuFRfQVXvXU luXGYxXGZzMjAgSnVsaWUg PFWLnWtrouF1YCDGSRzySL JccGFyfQ== Embedded Images (test code = [id number]) [facility] [id number] 15:47:00 Test Item Value Reference Range Interpretation Comments Case Report (test code Surgical Pathology ? ? = [id number]) ?Case: [id number] ? Authorizing Provider: ?Leelee Wadsworth MD ? ? ? Collected: ? 08/21/2019 1910 ?Ordering Location: ? ? Labor and Delivery ([facility]) ?Received: ?08/22/2019 1226 ?Pathologist: ? Kirk Sánchez MD ?Specimens: ? A) - FALLOPIAN TUBE, RIGHT ? B) - FALLOPIAN TUBE, LEFT ? Final Diagnosis (test m5qqlUQbSITpc4eaPFDdrT code = [id number]) FuZzEwMzNcZnRuYmpcdWMx RVwpzzQiOAdkc6BfL0QrHe AwMFxhbnNpXGRlZmxhbmcx EXTzYOT3rdWqGXZnHWyoZC VcQHnqTx1ekXQtpJekOqDj HKNec8kqmuHMxbwnbZp2q3 ubATWgVwQ2gREiCGuuL4bc erIgiBKeRWQdMBv3kI92BJ PgqN8tjLZvXGayrjUuYVol fdCvsdVyVfj4BJWkF9lrDS QvJLPoV3YbVT6uOIThDxs1 JXL7SIU5cZyza3T4xVEljJ TdvBteLyWhOzZlMPVHv1Mb IAq1rJroR5QjZFZaHfB4uV QgUGFyYWdyYXBoIEZvbnQ7 fO10FIowqwW9oOSnh4Hlg6 8me918fB4bcETnBRT5RDSy CMXzeBKaMGFoDQG4KXNgoM HsA6pkKVzbZI7xsywbFGC7 MFxtYXJndDcyMFxtYXJnYj FxiLMnLLPceDuwTSbgi685 KNG2NsSbDY0hI3Fyx2J8pV 9maXRcZGVmdGFiNzIwXGZv kz1zfHZnCYgyl2XoZGR1ge M8eMTeyHYcCTHnWO26Wuas t2RfEvtrd0ThW10ufJV0IY luc4msXJ4hQzQ4vmDeZTtv r4ffsR5kAsE6LNoyLV3wZC 6mMOXmxB8nzhoyBCRbRvWb bzioTZMyiSlyvuCjMo7waL ljFQT8IOhnV7ghzG5rUaF8 UCnjE4tijI3uTKg3XGgtjP W0ZWTovW6xXJ8vplsyp8xk YTM3DEgqXQGzvnZ3rfAbDB DqaULwD4NvsC00HeWwtMNs V2HjlZ4fFRalSZJauvs8Eq DdQy7ifZEghCE8XQctSiku YWdlXHBnbmNvbnRccGduZG VjXHBsYWluXHBsYWluXGYw XGZzMjBccGFyZFxwbGFpbl xmMFxmczIwXHBsYWluXGYx XGZzMjBccGFyIEEuIEZBTE xPUElBTiBUVUJFLCBSSUdI NSrrG3TJQKEXZNWSTYWWZ6 ZRLAsUArlsfPNzWTLxFW3d HoGTJLTLJh1AItMGQFRGTT 6EZC5GSROEAUnRYOxVTpAX JIWQAEvSZT7LAJQFQVZgiZ CwBGMncaOMVrBAOVhGD5CW CY1xJWIZJPifLFMOJHxaF6 XYEFEINWSJVNDFR0WWDDuS IzqdzEDeJQXmaeCkp7NdDG ApPTE9YEunHTsotXTrYIVs vIafk7rbZ9SkyMGsNTArBD bzWWKvIRRjFvSafEexfQ3k ZjFcZnMyMCAgICAtIEZVTE pjS9QBL3TfK1VECQpTJcBV LwPKGQoMS9QOME1nGICVXD BJREVOVElGSUVEXHBhclxw YLMkLPE7zAxryfVZKDsuor wgTUQgIDQvMjIvMjAyMCAg IIvfMmVSAVjoLPO4a0kqkJ YxXHNzdGVjZjIyMDAwXGFu v5qfYBGvhAIsIbSdAvTtQj LrYgneqMBgRUVvFsWfm6tx s675cIVsc1pzPSCiUhJ7eB UdVLKafFfyqec7wVeiIwFr LKGwl4ntiiLoZvXbUYFqLB OlYMGhuUDcD584YLFwLCga z0bzi4SqRVMvaZIqf8J4PS JEZYgpZsCvH641v4mfl3qa yeBezOT0FHNiKNC7YLzyhc QuxqE9LDffeLFrDsE5NYbm pdGtMTtchzMxxrHmTjg9KX GaT755PQP3hJxog8etYIV4 PXVeQAEpBzbgUk7ccREdZ3 67ZLYaYEYAFGFrrHt7PQCx cgDbhnMrqZBYu204U221f7 ggQRVkdxPbbVeUbkvjn9an K903JNQbpJOsacWxBeDjYF YtjCEroNF4CBOmUM6jguzl XHyjLEgjKETzebC2IYJjoF OlR2FyQEWuBE5wpwgyYUE0 TLroKIHfXCL1VfMaDWYhq8 Jywap4JoVucx2xem98IUH1 o2RhgDblEID3QFH5NiRlOm 7aaMIpCTElYG6kXxTakVRw AXHnqr32rAjxLBcqtoDmiC 0sHzAuVXBjwAJyTVRkDH3y nWMrORYbrY3eskyxOIEfTq ZjyaaoEJZanRhcgrFeCu1m dBkvNFX0KVsuU3howR5vUg J0AItzX4czkP6zXPv5KQfy aJZ5JNYkzM4qPN8gvmsba6 enRUtgWHlmKLMzbgX6gqN1 OMNkoQWxK5TpdY7vOXSuOV 8zgpsqt3cjPXN1MTfcOQZd FML0TtMzQIFba4Lhjna6Ru Rav6RbnWPtWKniE21pi985 AHQjdbTcA3pdeRLbkmntaY VmurzaQTlfcaD8FKKoTHJf YWluXGYxXGZzMjBcbGFuZz EwMzNcaGljaFxmMVxkYmNo GBInUHebG6bmMtIkE3OnYX VjGfDvxARwONflrYI9YSAy ZUJnr20qiXv4JUEqmkhry3 EuCXFnrRBggVWvbV2csmAx w9ebINEdMNXoWIFlO6OiKR Q4hNJiQKOhhBKloBQ9MK4n wbLzXS0zOFFxDvqzmjSixN ZtcmItFUGtBGago4ikDS1q PAMddUxhuP3wuHU0RHOcp8 ttyPAioYLaf8qjs6IcgmDj ZShzKSBtYXkgYXBwZWFyIG 3kPLAsuUXrrdGnt9R7Xbaj kHPqdbplIjxjhcC8WTwdbj fjACKjHDgpS2urVoZoVMPo zZxnLtpdu0FiURVeHRZnHs hccGFyfX0= Clinical Information 34yo s/p (test code = MPDPS [id number]) Gross Description (test a4hgoTJoAARljEEhLsQuGF code = 5348965582) NlLGKrk4yxSZYsxVKmIkUx MzNcZnRuYmpcdWMxXGRlZm Utj6xqo497kCBli5ffJGWk UrH7zSVySJAzrAEiN837QV SyRLutd4hvh4ZeFLQldHWv o1J5MJPLtiivmIg0q4njHc GeOtD5aLEyWByeW5bkxkPm zIArGGUkT6NjonEXCGBgTy d4fPudQ34ao5A6UkmjL1np ZWQwXGdyZWVuMFxibHVlMC Z1NRLfDSX5RXcljhUxceX4 QDauwLWrUsZ0TJd3g1eejS geXAClILQ3l4noUCzafxMd KJ1quy4dkEs5e2pmdwOpBI WjXCOrkJAQITGcT8YieBpl Gp2ylSy8bUqmNnbdURT2Ot f0OZ4bze67vfj1wOycEXGw aseeKqD0AGzlSTGdequnVL m5UJovPKMdoBGrVWVtsWKs A7AmODyrXN8idrg7QiSzQO 8rtbjjHPwrZHYqGTV2YiUx FLPgk6DffemiGnKyrv0gyb 00UHM2v4NnfVhyQER9IMT3 RwMlKg8brFEvKNDfMJ9pBh NcrPIgRMVhzd91fGgeHCfo yfCblR8mEvBaZVSmaIFpAU YzTG6xlFIzNHJpmE0jllpo XHBnYnJkcmhlYWRccGdicm TwBp4smWurZRM3AFfjL9fl cR6xOnC1QTcbE4ywsY3wAX b6OHuofOY6TGMacA3gHT9z pmval0jlQDO3CCnvJUXlnk Z4wjZaRRTipFSuR8MbdF79 TtYtlKVjG3WyxT9wCDjpGX Sjbqc9KbHjSy5vtQZphVJ4 MFxzYmtwYWdlXHBnbmNvbn RccGduZGVjXHBsYWluXHBs YWluXGYwXGZzMjBccGFyZF xwbGFpblxmMFxmczIwXHBs BEtqWUThHDQzIuToN7MqI6 zmRR1cDFZmkpXuEEHgeIAh VJEcrhVkl2AoFOtyljPmGP JlbGVkIHdpdGggdGhlIHBh fBsbjwVtsaCrIB9cROBAZM ZamR8wETTuYMJuYZqhm8Zz DA5lyMOoRFcffijwgVPlUB GvLTJzo45suAO4xiCbZxVt VYAfofdxBDF9NP1fdNgyaf UlXCxlAC71XN5fABFcuZsc vVqthmP0sSVfPIcsIiqlqY 6kbHOkE6MzVGhuXS69OZLo GAssIHuadnz8kNxdk5ipQ1 wmcLHcr5WajVRceNjhl0Vj dGlvbmVkIHRvIHJldmVhbC W8FH1hnUmqmvxpR8Pre5Pc eDT3zwRwvIBnd1ZgbRDaW0 C7VOD7iwMpV2TtKdEmZkUp jzJoPV41USEnobDhk4LmmE qmwjMdGJEsIBZ8Nl7wdDCi FDDtlrRYAF0sxQBlEEOknz ZLiDIbiC7rlkGNEHheECCa Z5LhhwKbHOpaSDFbgl0cpK ziLJlxCyLpRUNyy8w5fKV3 vZXywWF6yXYgiRbqFK8rfZ QqUDAPDL29pXXtlvzpJgAs yQvriRojzpA6uFQfEGPeEP L8WjExeoIhO26dl7pkkXEz l8XmKZEhmQ0mqLAmtIKtSY Mdkmiqe7MnwMRvnGMfKsKj BSztk0PrAW8ysLJrXMBdSO 24WZdnNVqssoz3eAE4PKPv NCBjbSBpbiBkaWFtZXRlci xju6dmK3hcqNKap4YiwELv sIiwn6GmgGtoxrOxEDCsGQ FvdpBisTH4ER1edPhnxdwr Q9Gyd9GtzNG2zfPjsAHzg4 TbzWNoA3A7BPH0waNhX4Gj PkDeWxPkilDuJH43KKXtux Wqv3GazWnneoYgGFKeKTY5 Ma1sbRTmUFRyqsZAYQ3ioX FyXHBsYWluXGYyXGZzMTZc bGFuZzEwMzNcaGljaFxmMl mlUmPkUHOnKWmiE8jzPsKr S9BmKUZoSZPjdTMtBOXoAU luXGYxXGZzMjAgSnVsaWUg BSDGiJantkJ5QSIBVCceZQ JccGFyfQ== Embedded Images (test code = [id number]) [facility] [id number] 15:47:00 Test Item Value Reference Range Interpretation Comments Case Report (test code Surgical Pathology ? ? = [id number]) ?Case: [id number] ? Authorizing Provider: ?Leelee Wadsworth MD ? ? ? Collected: ? 08/21/2019 1910 ?Ordering Location: ? ? Labor and Delivery ([facility]) ?Received: ?08/22/2019 1226 ?Pathologist: ? Kirk Sánchez MD ?Specimens: ? A) - FALLOPIAN TUBE, RIGHT ? B) - FALLOPIAN TUBE, LEFT ? Final Diagnosis (test l8pnbWHqSPDgp0amUWEzkO code = [id number]) FuZzEwMzNcZnRuYmpcdWMx UPmpazEcRAgkn5BrF0NfPa AwMFxhbnNpXGRlZmxhbmcx SZMyTIP7uqCbVBAnXCpxAJ GgLZoeAb3tsZUgrXyaByYr HUUqb0xgysVWktwplUc1j6 psKZFcWzP2qZQyXSkuS9dx juAdeFPaCFZjJNm8bH86NE QmrS3wgBRnPUskstNkCXex dwSixePyIzw3OYCxH4gmAJ LpDBKoT5KsGH6eOBZzHiy7 POZ3CRP5sUdya5B2rCLkzI AwqGknViBjVdLeCSPHh4Wa WWm9fRgxD4HtKHLaOmP4nV QgUGFyYWdyYXBoIEZvbnQ7 sQ12JFjekyS4qREpv3Tuu4 3xe765vL0pmAKlNYU6WHUq NKRuhLTxZZCwRNR2EVWvzV DmN0ozFYngGU7vvvpeCOX2 MFxtYXJndDcyMFxtYXJnYj SdmLBhRPMvzXzrJLlsk132 NDQ9GrFdCZ7wA8Cvk9F4uJ 9maXRcZGVmdGFiNzIwXGZv fj1hpEHzSZgws5XvYUR5rk B1hMQowEQgNALiDI28Nbph y9CgVmxtm6YgA52mxUM0JR sbi2imZZ7jHgZ8kcTkQSwk c0sqoK4nMbZ9SUddAS4cSQ 5wGADypA7goiqsVQDwRuVb jekaJJNqoYtsulBfPd6nwQ hcJVV1MWfxQ0yxfC1rUtI3 ESyjW6kmuG8aLUt0NXxyoB W9ZNAimE8jRY0rnagsv2yj VXJ2ZGtcOEBexmG9gdIsPS ZwyNPgF4IejF48KtTaqMFg F5DepT9oAUtvZUAaqpo8Yf WkZv5vfWVguYD3NZmvGawe YWdlXHBnbmNvbnRccGduZG VjXHBsYWluXHBsYWluXGYw XGZzMjBccGFyZFxwbGFpbl xmMFxmczIwXHBsYWluXGYx XGZzMjBccGFyIEEuIEZBTE xPUElBTiBUVUJFLCBSSUdI OLyyF7PYMEVGAMBZOBXVL6 JELMwNWxvfdRXoPUMoDL1x EwAWTKUHPl9WXfBWZPWNBP 3DGA5EFECLPXxLSAuUVgJD CLITQVsWTY8RNJNYQCOovQ KqIESnhaNLSxHSHYiKV7HM HW1lNYPFTFdcYFNWDHkzY7 EIHWZSQRYAMMIHH7XOKTzE BxfbcFZyHCUkntAvb6BjQS DoCHB6TCkaQTzhpLZpXORl hKkws7giM5LieTPmFTMnUG ujLLTxDAIcYfUjqXdyqG5p ZjFcZnMyMCAgICAtIEZVTE znR6IMS0AqH0MYMMhRVzOU FbCZDKaSX8MMDP4yGYNEQF BJREVOVElGSUVEXHBhclxw CZWaTMS5sLpmuaBALOjdlo wgTUQgIDQvMjIvMjAyMCAg FTaxCtPNURdeTIA7t2xjtX YxXHNzdGVjZjIyMDAwXGFu k9erWYEkpMYtMuXgSnSnMx FxNblcpFGqBRGrWrGjn7fg b569nCViz5ocTNAdAfH9mA DxKDBlbBmelor7sJwuAyLs SMSld8nhalAvByEpQSQcFC RaLHHtjYHiP249OJUaGEbz f0aay2EiBEPvpLLuq9U6ZH FWZLuiTnKqJ440j4occ8be giGraJJ9ZOHeXTX1NAffds NkjnN9RMbooEZwLoV1VDsy tyLfJFhwfcUpsuEfYza2LX GbT456HYB9zZhfu0agEIB8 CPZzDMNfNycvQf0vnVXtU1 40APYnNBXNNHOjxPw9OZXk twJivuEqvNCTr288P000z0 qzBUPwzjRaaFoKnbgnl6ue N586YSYirCNmbxGeNmAqDN CvhGJqkVO5YYMsYX6nguym KQmxJOrbTPZrxgP2PKRtlR OoZ8JnFNLzCF1pioawZSL1 GYwmFRUsAIL6SbVvKCNii1 Fldpy6GgWubu2gtw43JDJ2 w3WurRenNGB0QLA2LnPqRy 4lfCSiRGPpNX1mWoBajUZj MYEnad20yAlrGVlvibGnfA 4lSsClDONdpYUqLHJkBE3l yWQbMOVdwI8ydchdPBSlXg KfvxusJTEjeMaqyePgIv3a zLjcGTN4ESunV0iguR4tZn L1GChmW6rfpS0mAIf4OBmr sZK3IQVilQ5yFG5rrmtri4 deUZurMBxlFFJbdsR3gkR1 LUQioXZtA3JzgK2tWOTaEN 7ibvani2qdOXI3UAxaUTXc QKW7EeDwDZAud6Zwsmo5Ck Ipq3SamSEgIWgnS45bh604 XPBnpsIwT6ukgCPvzskilU VnuopfZLxwqpH4YOWfRBZg YWluXGYxXGZzMjBcbGFuZz EwMzNcaGljaFxmMVxkYmNo BYRiMXvsL9hnYhKyY1UuJK LnSsPzlVImEKfywQV2AVUj COJif19xyHz1NFRanrfam6 EcJPCtxGSikLAvhN7jixWe p6riPDBqDFMyWTEtU7TeYH E9iVJoAQMddUNfeEC9BO0a tsPqUO2dGSQqJtfilsYrkZ LoahDgSIMvOMxqq6uaVV6q TQIcdYxteY6jwGD4OWDkr0 rnbFFaxJUgw1emx8OqehIx ZShzKSBtYXkgYXBwZWFyIG 5pDGXoyOEgrdLbt1L8Jlvc cXWdcbszGrxlteL4MHiyqn amPVSxGOatB1eiOnKhVJIh oBbcTsont9ZhBYWzVZRySi hccGFyfX0= Clinical Information 34yo s/p (test code = MPDPS [id number]) Gross Description (test h6iexTGmACKszMPyBgDfXP code = 2656964623) MbPQUkh1zzQBMrjNXaMoQp MzNcZnRuYmpcdWMxXGRlZm Vka3yzj284uETte8wmKEEe NnA7pFDnAXQkiXPmM946BU QvWJkwb3nqg8IuQZGxbBDl u6X7VEAPoosbcVt7n4gvPz IjKbL2nLMyWWbwK9jqysCg nYLeABCvM5MhryGFLIEfPy r7pAiiB62ra1K1WkbqC5uw ZWQwXGdyZWVuMFxibHVlMC O5RUPuQME4NPexaaEoxsH3 SSsjqJKkBoR4NZa2y9gtfJ lfNPBeMCI7z3cqQDxzowUu NI3peb9qhDm7t2lksyKlCO PlWXTbeXSAQSBjZ1PgoUwb At2arIb0zCgaNspgFVZ1Vj c5JU4vlu27bgc8wKniQPQv yxgtWwF9FKquEKOupclmWB t4AVvkCGIhjFYaPMBjzYFe H5IiHKycSK3syru5CiYgAR 9vjatqLUvpAOBrDPJ9RhUh SIVqv3FyvckqMxXeam0cax 73JBC2b5YmaTiwJZJ5CIC0 IrQsVi3mdHZbQRUuNI7jZe IbmQAmXQWkie87hMyiUJlg ivFxrX5fRyWwANUgxCYxCE SuKO1wnZJiUWTghA4jlcsr XHBnYnJkcmhlYWRccGdicm ZvPl9onCkuLOC1LRrdY6kt fY2eRkC0KBujB9lquI7wZC i1OGebmNQ1ODTrqQ5kMV4v cgpmy4mhWLA0PRwjXZBzkr I5pqDcOOInoKBvW1UrzD43 OuYszYDuC5XgeX7fEFnvBJ Gtxkp1CvFwBo7shTGutLT2 MFxzYmtwYWdlXHBnbmNvbn RccGduZGVjXHBsYWluXHBs YWluXGYwXGZzMjBccGFyZF xwbGFpblxmMFxmczIwXHBs IOpvYMPcPALvHhFlO8CvU3 ndLD5hEOPebiGdOTFviLRa URLundShf2KuJFtalmMpLD JlbGVkIHdpdGggdGhlIHBh oRoixoJuwyPwYL1eAMMTOA JfiY9jHTQnRFNfHWske8Qx EO7iyBQnBJjdlsgmxQRgGH YlBEXmw35qnZN3lrFyBhDs ZMYlbkcoDOI9QX1eiSgltp OeBFubTD65OT1pVYDicNmt yZxkofA1vAKjZRflUvfkeO 4dsOBxX5AoFFpmUR96BQLq JTnvITnxvzj0qElms9ncO2 cqmKIjj2XoqLCsdQzmj7Jc dGlvbmVkIHRvIHJldmVhbC Y7QS3awOwzkquvK9Jec3Gw eBN2ahEwtCMdd8BhwOUoP8 E6EUK5ohAqL7DhRaUkWeKd jiMhNF61WQTotbAxq6XgwU hhtiOwNJPjYJJ5Xw8sfRMm PQWearPCTX8biDZqIJAybm XXuNUyyZ3ggqLDTGdfELZt C4DgyxUfFRhsTHSqva2mlZ axKQsbMoHwWDLvd6b8cET3 nIEfmBG2eRVubLpyFB4xuI HkTQUIMC93gDIbodlwSwNt hGhheCphwmQ9dODtBSYnVG R4MfLouxOqB20zd9ryfPXx b7LyMIUsxO7rpAPthTGxHM Xwoezwo4LmtNTblFHyDeAw IAkhs5OiDD6tpMUaBTXoUJ 44UDwsUUytlkn6bTF1NKHt NCBjbSBpbiBkaWFtZXRlci zij1ioA6zqmARdq1IulJSh xOdlo8ZbnAzyexLpACBeLU MovySfjED4AI2pbVqsgnfo G0Mxx5JfcTL8yeXgaAHeh6 UuoBUdH7J8VCT9jcRiG1Zl JpSiJqNucjCtMQ10MQTerz Tzy7TvnRxigoZrIPHdYRQ8 Zc1xhBPqTGWjmfXMIF1toF FyXHBsYWluXGYyXGZzMTZc bGFuZzEwMzNcaGljaFxmMl ojFaXlCGZjGGtcC4alWuQo N2GgSSHxBWTxfCJaBOLyCJ luXGYxXGZzMjAgSnVsaWUg YZAHpWyffdF8YYUZRIqrSJ JccGFyfQ== Embedded Images (test code = [id number]) [facility] [facility] [id number] 15:47:00 Test Item Value Reference Range Interpretation Comments Case Report (test code Surgical Pathology ? ? = [id number]) ?Case: [id number] ? Authorizing Provider: ?Leelee Wadsworth MD ? ? ? Collected: ? 08/21/2019 1910 ?Ordering Location: ? ? Labor and Delivery ([facility]) ?Received: ?08/22/2019 1226 ?Pathologist: ? Kirk Sánchez MD ?Specimens: ? A) - FALLOPIAN TUBE, RIGHT ? B) - FALLOPIAN TUBE, LEFT ? Final Diagnosis (test o0pdtOPwRRDsg1xlDKIeiH code = [id number]) FuZzEwMzNcZnRuYmpcdWMx LGhtcfQrPCvkb6RdL3EkEs AwMFxhbnNpXGRlZmxhbmcx BDGzJJT2arAfRXIwCApvBL EfGSrkIt7twOOapRkyLqAg EBBmc7tujfLVukzorWw1w0 ktLDVuQaO8zISrXJfaL0xb pmFelUUxYDYzXZv0aM32XU LysU8egMOdORloxiApTFvi aePfxiCqEyw7BLYmV0yeSR MeEPIiQ5BzMC3cWYXzCkv7 GKJ5MCY2eGiez9C8kFHgeE GliWxvPsSaExLqMQKCx5Kc TKy8tLcoH9ZzBMMpSdJ4gE QgUGFyYWdyYXBoIEZvbnQ7 oF00TVynkxN3uLMvf1Aki5 0ax065iC5biZHxXYN9PHQo TSGndAHfJUCeBIU1SFVsbN QcC6kzNQxyGR4musghMQE9 MFxtYXJndDcyMFxtYXJnYj HcaCTtFOJdyHbkVNgbx883 ZVH8OlIoSK5wM9Ihp0B0yC 9maXRcZGVmdGFiNzIwXGZv bz2pgVRpNVadt2GmLKU1ms C9nIUonFMxONKlRM35Pfcz g1TrDppwj3ArF33zkNC3ET pbf8kiYV0aAhS3cvDtGCad h8uvlY0uMlT9BWjoVO6uXE 3dZMYarX8intqzTYXeWwFp ekgkWTHtfLinpiPfVh4bdP ycJUI6PExhK1hzrB7fAcN7 GFefP0scsZ6tNXu4XYsyyV Y6SZWdnP3dZS9xnhtxb4qd OJV5LMkiFFRytvA5fwJcQA ZxkBRtY0RroH45MxIcdQAl J6BcfT1bEYzqJVJtdaf0Nj SgZc5vxJJakSX6MGadCgbf YWdlXHBnbmNvbnRccGduZG VjXHBsYWluXHBsYWluXGYw XGZzMjBccGFyZFxwbGFpbl xmMFxmczIwXHBsYWluXGYx XGZzMjBccGFyIEEuIEZBTE xPUElBTiBUVUJFLCBSSUdI GVqkO6KXICISBUKYUABVH4 CZOExBDcdyrZFrDMWgLI5g RfIEBKUCYm6MXiQCIYRTCA 8FRU7AMOSYUJkCJQqPCgBK UQLCMUrLZM8IXEEAXAOsyA ZkUWJqfzMKMgRGZKcGR6SD MA8kWEKBZZmqCANLSVloE0 XDBHTYPBWBFMOOS1GVTAtH ZnacaMEoBCCvmfBor4OzDI LdOZA2CWglPKjkuMCiKYBx cMwdf9rxK1RxrUYuTFQoVP haTUUcXWFyLcGbaVumsO9p ZjFcZnMyMCAgICAtIEZVTE kqW9GRH3YcQ0RCBSwKKvFU DrAWOFoZM9FSZY3lPRLCSG BJREVOVElGSUVEXHBhclxw KCGsFCO6lKavgcNCPYnbdc wgTUQgIDQvMjIvMjAyMCAg IObwRyORNVjsSKN4j5cmmX YxXHNzdGVjZjIyMDAwXGFu t6jmNGMfxZDsOtYzJnNnTz LoAnmouQSeCCUvLyNzl3he j052lXPkq7pyMUAeKyP1nY BnECFjuCmbkda2bRziHnXp FTSwe9wwmhBaYbYqNNPfWV VwLJNuoWZnJ985MGBbWSrc s4ibt2SfIEBddXQdm5R4NQ NXAOlvOuBqM394l2izd4jl oiLbkMF9BBPeGKP0WXlgoh FnbxV9MFsjtICkCpX1FQtw icWhKTocysUfmhEhWyt1XU XfC696YAK1vVgdp5guXWZ5 RTTaNGYaCqrfPd7qkEKfU9 68REIfJSNRGFJraSn5VGOg bpPzftKukBKOw669U186q4 teONJjtlNqzLfWpmlty4ja S517RSVkhEVocmTzEaZiKD SryNWfkOC1UVQtJT0vvzrj GEnwXGwuASSioaG1PULzgG EjZ4TrYEXuLM6sbumzVTW1 FYwoLOPbWDJ4VsKfCVEro1 Yutmg4AhPyip2xrt70JZG8 d9LggLtmSLC7ETU8VrHeMm 2jmWTyLMCjBJ9tLrVqyEZm KDAveh54fDjhVAxpwpGywP 9sKiYhRXWwxIPqIOFtEK5c mEAmUUBjbD7zwnqsILIbQy QqiabbXPOqqQkbqsLfLb0b yNcqUCK7QQmfD7yngJ3eSf S9ZTuxF7sdfW7kAJy2HDkx uQK5QNScmW6wPF4ubwbwd1 gqKLneMPvxMHLeecG1tqH9 XETpuNCpB0NevA1aNJIiZK 0micdgb3kgAGW4DJcoLDHk VVD6PoMlNMJpf4Xaksj6Eb Azo9AquWQfSYigZ83cy389 RJJvbtFrK4wcbTEgylwgaO WzginkCFprhwL1ORSpRDFo YWluXGYxXGZzMjBcbGFuZz EwMzNcaGljaFxmMVxkYmNo ZOVpLHyvL3edGoQqI4LrYL PkVuMneTIvRYghuOL6JBAo YVKlm14wePa6IZHsbgehn8 WcWQTeySIdgQZmrX2hysCw u7fkBMHoXFHoTHSkV0SgUY O9kOGoITMyuHOroWD5RH4v xpQlQH6rZRTyWnqjpmTvaQ LyjxYeECJkCTtto1zfIW8g NLCiiZvebQ3qtJP9DYHll6 jooOEjdEYmz5zfi1JuitDs ZShzKSBtYXkgYXBwZWFyIG 1nOFPnfNQtdhPal9L6Gjms rDMtbyjyTfhwcrZ4LObyln hcEGAzOFxeL2qtObFbIHOm eOfeXhpcx6QqEKAsDTMjPl hccGFyfX0= Clinical Information 34yo s/p (test code = MPDPS 6325807759) Gross Description (test i3mfjEYnBPAxfHQcFhWoRH code = 4217592236) SfCHOrx3qcJAEurADjOrUo MzNcZnRuYmpcdWMxXGRlZm Fpl5bgy932nSOtj0nvPIGc LcU7zKQeZOCshUIrZ185UA JbCNgas3hmw9MzZAZznTJv e5U2TMMLvoainTd1b5upFb IvVhQ2gRFyGJxfM4blmdTx lHQoKOJeS2IpsnJEPFNlWl x9sCaqG22dh7K2MdngR7vp ZWQwXGdyZWVuMFxibHVlMC Z6FTMtWWO1CGizkrOndwW8 TTcopMSnTzX7UZi1m4lfhY pzQADeKFI7d3vkDMjnmaCz LU0dif1pmXr6w4ysrrFxVG YqBDKewIZKCNNeP9RgsUoy Px6kuIz9tAdoTectURM2Fm x7OJ9llp54mua9kLmxVCAh rsggLkN1GQmcVDIgytofDM a4EDmzCXMreDQgOTQhlYKx U5UiBUdlOV8uvgh5OkZmIV 8pszybIAanBKPmLDL1KoKh OUYyb4UcacxrAmAcvv1hcp 06JYP1y5TkzHtwTGV7NJP3 OxYlHb7bcFBrDXJdVQ2lWq OpwPCkPYFbeb05tGazZOdp loFuwU8mJnVnKNThaIBbJC OsJQ9uvDRqQKKliN8egpdx XHBnYnJkcmhlYWRccGdicm FhTc8eoQgdQOA8PKmvY0th xC9xQxG3ANmbS3zwzN2uCL n4EHljpBK9UFYioZ9cHQ1v fqfuj0vsJRB4ZIjcQBOemv W0skVoOMCafUViQ6DvlG26 ZiEbxZRqE5HhuL2gHFfxSM Nyksu8BjPlEp2ifOXuvBV8 MFxzYmtwYWdlXHBnbmNvbn RccGduZGVjXHBsYWluXHBs YWluXGYwXGZzMjBccGFyZF xwbGFpblxmMFxmczIwXHBs YOkvLYAxFBAvSjUiJ6RfV5 oyRA6sDSMiquFbYDSacJFd PZJsbpKba6UvMKwjnzNqHA JlbGVkIHdpdGggdGhlIHBh dLznhqXrrhTsZP2iVQSRND GyqH4kFCRoOWMwTDivs9Wb VD5msKCdBQmmxfkwsRVtBX UfEIKlf83fgMW3ztXaTyIk DREqqgecTTO8GY4yiNqpnb VgYWsdGR35FF0tUCPgvHwa gPqgutM9rCMhUXfpXrteeN 2bgTMnO8SiABwrXJ43CROa XAndRFbvogf8xYyei4zpV0 rgoOTzx4DxpLYlxAjls0Mi dGlvbmVkIHRvIHJldmVhbC O9NT5ceYjkfigjZ1Dwl6At yPC7chWzaIHdk5TsbYCaP8 X8URU9eeLoN8CuKkFhGiDx irTlBN81NJDbpsDyu3OpnX lzoyLtNQSzPNO0Oc1gvDNh YGOkpjXTNK0vdMJvJWOlfh UEjIItmS7wjbJAVSapJAMg Z0VtyyDcNYpcOEWsfk1zhB lcOOjhFfJdZMMen8m2vPT8 xQAcrYN9eBOifArrQB5ziT LiGEBXTJ43cVYpinngAsQj aPmbkZvghqC3vURySZAxXD N1PzHfhzCfF85kj3iaxBZx i9WwKXRscT3jhEPxnTMzNM Pyolbwp6LgkZQseGMpIkBm RWjmw5BbRR7poFHjXQLvTI 24IQemUAcvqip8dOS3PJVl NCBjbSBpbiBkaWFtZXRlci cxv4xtL5vatAMof6XodVMi lDzwt0ObtPlsgrUgTOTtKJ GhumJrpTW9XB2ysXlywhqh A0Zlw9BzwMO0hqZavUYrn1 JntDIhO6H4QPJ3odQzY3Ia EgIvZqRjelIrVU84EVNkfj Pfz5VfcOaawoGfBQPfBEG3 Kb2jkWMmKQZdlwREAH5auF FyXHBsYWluXGYyXGZzMTZc bGFuZzEwMzNcaGljaFxmMl rcUxNtKZGeVQtkD4imFzVr J6QlEYUcHUZseDLkKNJaDB luXGYxXGZzMjAgSnVsaWUg DHHQqRtpxcC1GBLSJQofAT JccGFyfQ== Embedded Images (test code = 5769332380) [id number] 13:56:00 Test Item Value Reference Range Interpretation Comments SYPH IGG (test code = Non-reactive Non-reactive Only S yphilis [id number]) IgG tested. Syphilis IgG/Ig M assay reagents not available a t the time of testing. BONNIE (test code = BONNIE) Non-reactive - No serologic evidence of T. pallidum infection. Cannot exclude incubating or early syphilis. Submit a second specimen in 2-4 weeks if syphilis is clinically suspected. Equivocal - Further testing to follow. Reactive - Further testing to follow. Lab Interpretation Normal (test code = 20147-4) [facility] ONLY - SYPHILIS [id number] 13:56:00 Test Item Value Reference Range Interpretation Comments SYPH IGG (test code = Non-reactive Non-reactive Only S yphilis [id number]) IgG tested. Syphilis IgG/Ig M assay reagents not available a t the time of testing. BONNIE (test code = BONNIE) Non-reactive - No serologic evidence of T. pallidum infection. Cannot exclude incubating or early syphilis. Submit a second specimen in 2-4 weeks if syphilis is clinically suspected. Equivocal - Further testing to follow. Reactive - Further testing to follow. Lab Interpretation Normal (test code = 30497-9) [facility] ONLY - SYPHILIS IGG/[id number] 13:56:00 Test Item Value Reference Range Interpretation Comments SYPH IGG (test code = Non-reactive Non-reactive Only S yphilis 2555243948) IgG tested. Syphilis IgG/Ig M assay reagents not available a t the time of testing. BONNIE (test code = BONNIE) Non-reactive - No serologic evidence of T. pallidum infection. Cannot exclude incubating or early syphilis. Submit a second specimen in 2-4 weeks if syphilis is clinically suspected. Equivocal - Further testing to follow. Reactive - Further testing to follow. Lab Interpretation Normal (test code = 86303-5) [facility] ONLY - SYPHILIS [id number] 13:56:00 Test Item Value Reference Range Interpretation Comments SYPH IGG (test code = Non-reactive Non-reactive Only S yphilis 2591539520) IgG tested. Syphilis IgG/Ig M assay reagents not available a t the time of testing. BONNIE (test code = BONNIE) Non-reactive - No serologic evidence of T. pallidum infection. Cannot exclude incubating or early syphilis. Submit a second specimen in 2-4 weeks if syphilis is clinically suspected. Equivocal - Further testing to follow. Reactive - Further testing to follow. Lab Interpretation Normal (test code = 77939-1) [facility] ONLY - SYPHILIS [id number] 13:56:00 Test Item Value Reference Range Interpretation Comments SYPH IGG (test code = Non-reactive Non-reactive Only S yphilis 4711265283) IgG tested. Syphilis IgG/Ig M assay reagents not available a t the time of testing. BONNIE (test code = BONNIE) Non-reactive - No serologic evidence of T. pallidum infection. Cannot exclude incubating or early syphilis. Submit a second specimen in 2-4 weeks if syphilis is clinically suspected. Equivocal - Further testing to follow. Reactive - Further testing to follow. Lab Interpretation Normal (test code = 23793-6) [facility] ONLY - SYPHILIS [id number] 13:56:00 Test Item Value Reference Range Interpretation Comments SYPH IGG (test code = Non-reactive Non-reactive Only S yphilis [id number]) IgG tested. Syphilis IgG/Ig M assay reagents not available a t the time of testing. BONNIE (test code = BONNIE) Non-reactive - No serologic evidence of T. pallidum infection. Cannot exclude incubating or early syphilis. Submit a second specimen in 2-4 weeks if syphilis is clinically suspected. Equivocal - Further testing to follow. Reactive - Further testing to follow. Lab Interpretation Normal (test code = 98474-1) [facility] ONLY - SYPHILIS [id number] 13:56:00 Test Item Value Reference Range Interpretation Comments SYPH IGG (test code = Non-reactive Non-reactive Only S yphilis 3607571531) IgG tested. Syphilis IgG/Ig M assay reagents not available a t the time of testing. BONNIE (test code = BONNIE) Non-reactive - No serologic evidence of T. pallidum infection. Cannot exclude incubating or early syphilis. Submit a second specimen in 2-4 weeks if syphilis is clinically suspected. Equivocal - Further testing to follow. Reactive - Further testing to follow. Lab Interpretation Normal (test code = 68213-0) [facility] ONLY - SYPHILIS IGG/[id number] 13:56:00 Test Item Value Reference Range Interpretation Comments SYPH IGG (test code = Non-reactive Non-reactive Only S yphilis 5780407704) IgG tested. Syphilis IgG/Ig M assay reagents not available a t the time of testing. BONNIE (test code = BONNIE) Non-reactive - No serologic evidence of T. pallidum infection. Cannot exclude incubating or early syphilis. Submit a second specimen in 2-4 weeks if syphilis is clinically suspected. Equivocal - Further testing to follow. Reactive - Further testing to follow. Lab Interpretation Normal (test code = 82808-4) [facility] ONLY - SYPHILIS IGG/[id number] 13:56:00 Test Item Value Reference Range Interpretation Comments SYPH IGG (test code = Non-reactive Non-reactive Only S yphilis 6890925842) IgG tested. Syphilis IgG/Ig M assay reagents not available a t the time of testing. BONNIE (test code = BONNIE) Non-reactive - No serologic evidence of T. pallidum infection. Cannot exclude incubating or early syphilis. Submit a second specimen in 2-4 weeks if syphilis is clinically suspected. Equivocal - Further testing to follow. Reactive - Further testing to follow. Lab Interpretation Normal (test code = 87931-2) [facility] ONLY - SYPHILIS IGG/[id number] 13:56:00 Test Item Value Reference Range Interpretation Comments SYPH IGG (test code = Non-reactive Non-reactive Only S yphilis 7877959269) IgG tested. Syphilis IgG/Ig M assay reagents not available a t the time of testing. BONNIE (test code = BONNIE) Non-reactive - No serologic evidence of T. pallidum infection. Cannot exclude incubating or early syphilis. Submit a second specimen in 2-4 weeks if syphilis is clinically suspected. Equivocal - Further testing to follow. Reactive - Further testing to follow. Lab Interpretation Normal (test code = 71534-2) [facility] ONLY - SYPHILIS IGG/[id number] 13:56:00 Test Item Value Reference Range Interpretation Comments SYPH IGG (test code = Non-reactive Non-reactive Only S yphilis 6993233253) IgG tested. Syphilis IgG/Ig M assay reagents not available a t the time of testing. BONNIE (test code = BONNIE) Non-reactive - No serologic evidence of T. pallidum infection. Cannot exclude incubating or early syphilis. Submit a second specimen in 2-4 weeks if syphilis is clinically suspected. Equivocal - Further testing to follow. Reactive - Further testing to follow. Lab Interpretation Normal (test code = 93487-4) [facility] WITH [id number] 09:21:00 Test Item Value Reference Range Interpretation Comments WBC (test code = See_Comment H [Automated 90-2) message] The sy stem which generated this result transmitted reference range : 4.30 - 11.10 10*3/?L. The reference range was not used to interpret this result as normal/abnormal . RBC (test code = See_Comment L [Automated 789-8) message] The sy stem which generated this result transmitted reference range : 3.93 - 5.25 10*6/?L. The reference range was not used to interpret this result as normal/abnormal . HGB (test code = 9.2 g/dL 11.6-15 L 718-7) HCT (test code = 29.1 % 35.7-45.2 L 4544-3) MCV (test code = 80.6 fL 80.6-95.5 787-2) MCH (test code = 25.5 pg 25.9-32.8 L 785-6) MCHC (test code = 31.6 g/dL 31.6-35.1 786-4) RDW-SD (test code = 44.6 fL 39-49.9 94176-2) RDW-CV (test code = 15.4 % 12-15.5 788-0) PLT (test code = See_Comment [Automated 777-3) message] The sy stem which generated this result transmitted reference range : 166 - 358 10*3/ ?L. The reference r radha was not used to interpret this result as normal/abnormal . MPV (test code = 10.1 fL 9.5-12.9 82633-8) NRBC/100 WBC (test See_Comment [Automat ed code = 6006240634) message] The system which generated this result transmitted reference range : 0.0 - 10.0 /100 WBCs. The refer ence range was not u sed to interpret th is result as normal/abnormal . NRBC x10^3 (test code <0.01 See_Comment [Auto mated = 3444443760) message] The s ystem which generated this result transmitted reference range : 10*3/?L. The reference range was not used to interpret this result as normal/abnormal . GRAN MAT (NEUT) % 69.7 % (test code = 770-8) IMM GRAN % (test code 0.90 % = 1285673196) LYMPH % (test code = 22.3 % 736-9) MONO % (test code = 5.8 % 5905-5) EOS % (test code = 1.1 % 713-8) BASO % (test code = 0.2 % 706-2) GRAN MAT x10^3(ANC) 9.76 10*3/uL 1.88-7.09 H (test code = 9027111716) IMM GRAN x10^3 (test 0.12 10*3/uL 0-0.06 H code = 8968808927) LYMPH x10^3 (test code 3.12 10*3/uL 1.32-3.29 = 731-0) MONO x10^3 (test code 0.81 10*3/uL 0.33-0.92 = 742-7) EOS x10^3 (test code = 0.16 10*3/uL 0.03-0.39 711-2) BASO x10^3 (test code 0.03 10*3/uL 0.01-0.07 = 704-7) Lab Interpretation Abnormal (test code = 05158-4) [facility] WITH [id number] 09:21:00 Test Item Value Reference Range Interpretation Comments WBC (test code = See_Comment H [Automated 6690-2) message] The sy stem which generated this result transmitted reference range : 4.30 - 11.10 10*3/?L. The reference range was not used to interpret this result as normal/abnormal . RBC (test code = See_Comment L [Automated 789-8) message] The sy stem which generated this result transmitted reference range : 3.93 - 5.25 10*6/?L. The reference range was not used to interpret this result as normal/abnormal . HGB (test code = 9.2 g/dL 11.6-15 L 718-7) HCT (test code = 29.1 % 35.7-45.2 L 4544-3) MCV (test code = 80.6 fL 80.6-95.5 787-2) MCH (test code = 25.5 pg 25.9-32.8 L 785-6) MCHC (test code = 31.6 g/dL 31.6-35.1 786-4) RDW-SD (test code = 44.6 fL 39-49.9 84867-5) RDW-CV (test code = 15.4 % 12-15.5 788-0) PLT (test code = See_Comment [Automated 777-3) message] The sy stem which generated this result transmitted reference range : 166 - 358 10*3/ ?L. The reference r radha was not used to interpret this result as normal/abnormal . MPV (test code = 10.1 fL 9.5-12.9 62485-5) NRBC/100 WBC (test See_Comment [Automat ed code = 0126630034) message] The system which generated this result transmitted reference range : 0.0 - 10.0 /100 WBCs. The refer ence range was not u sed to interpret th is result as normal/abnormal . NRBC x10^3 (test code <0.01 See_Comment [Auto mated = 5921673854) message] The s ystem which generated this result transmitted reference range : 10*3/?L. The reference range was not used to interpret this result as normal/abnormal . GRAN MAT (NEUT) % 69.7 % (test code = 770-8) IMM GRAN % (test code 0.90 % = 6679579919) LYMPH % (test code = 22.3 % 736-9) MONO % (test code = 5.8 % 5905-5) EOS % (test code = 1.1 % 713-8) BASO % (test code = 0.2 % 706-2) GRAN MAT x10^3(ANC) 9.76 10*3/uL 1.88-7.09 H (test code = 0633599795) IMM GRAN x10^3 (test 0.12 10*3/uL 0-0.06 H code = 2019280263) LYMPH x10^3 (test code 3.12 10*3/uL 1.32-3.29 = 731-0) MONO x10^3 (test code 0.81 10*3/uL 0.33-0.92 = 742-7) EOS x10^3 (test code = 0.16 10*3/uL 0.03-0.39 711-2) BASO x10^3 (test code 0.03 10*3/uL 0.01-0.07 = 704-7) Lab Interpretation Abnormal (test code = 14778-8) [facility] WITH [id number] 09:21:00 Test Item Value Reference Range Interpretation Comments WBC (test code = See_Comment H [Automated 6690-2) message] The sy stem which generated this result transmitted reference range : 4.30 - 11.10 10*3/?L. The reference range was not used to interpret this result as normal/abnormal . RBC (test code = See_Comment L [Automated 789-8) message] The sy stem which generated this result transmitted reference range : 3.93 - 5.25 10*6/?L. The reference range was not used to interpret this result as normal/abnormal . HGB (test code = 9.2 g/dL 11.6-15 L 718-7) HCT (test code = 29.1 % 35.7-45.2 L 4544-3) MCV (test code = 80.6 fL 80.6-95.5 787-2) MCH (test code = 25.5 pg 25.9-32.8 L 785-6) MCHC (test code = 31.6 g/dL 31.6-35.1 786-4) RDW-SD (test code = 44.6 fL 39-49.9 04873-7) RDW-CV (test code = 15.4 % 12-15.5 788-0) PLT (test code = See_Comment [Automated 777-3) message] The sy stem which generated this result transmitted reference range : 166 - 358 10*3/ ?L. The reference r radha was not used to interpret this result as normal/abnormal . MPV (test code = 10.1 fL 9.5-12.9 58552-1) NRBC/100 WBC (test See_Comment [Automat ed code = 5858727378) message] The system which generated this result transmitted reference range : 0.0 - 10.0 /100 WBCs. The refer ence range was not u sed to interpret th is result as normal/abnormal . NRBC x10^3 (test code <0.01 See_Comment [Auto mated = 1621270855) message] The s ystem which generated this result transmitted reference range : 10*3/?L. The reference range was not used to interpret this result as normal/abnormal . GRAN MAT (NEUT) % 69.7 % (test code = 770-8) IMM GRAN % (test code 0.90 % = 6432607568) LYMPH % (test code = 22.3 % 736-9) MONO % (test code = 5.8 % 5905-5) EOS % (test code = 1.1 % 713-8) BASO % (test code = 0.2 % 706-2) GRAN MAT x10^3(ANC) 9.76 10*3/uL 1.88-7.09 H (test code = 9238237862) IMM GRAN x10^3 (test 0.12 10*3/uL 0-0.06 H code = 9944387379) LYMPH x10^3 (test code 3.12 10*3/uL 1.32-3.29 = 731-0) MONO x10^3 (test code 0.81 10*3/uL 0.33-0.92 = 742-7) EOS x10^3 (test code = 0.16 10*3/uL 0.03-0.39 711-2) BASO x10^3 (test code 0.03 10*3/uL 0.01-0.07 = 704-7) Lab Interpretation Abnormal (test code = 82756-4) [facility] WITH [id number] 09:21:00 Test Item Value Reference Range Interpretation Comments WBC (test code = See_Comment H [Automated 6690-2) message] The sy stem which generated this result transmitted reference range : 4.30 - 11.10 10*3/?L. The reference range was not used to interpret this result as normal/abnormal . RBC (test code = See_Comment L [Automated 789-8) message] The sy stem which generated this result transmitted reference range : 3.93 - 5.25 10*6/?L. The reference range was not used to interpret this result as normal/abnormal . HGB (test code = 9.2 g/dL 11.6-15 L 718-7) HCT (test code = 29.1 % 35.7-45.2 L 4544-3) MCV (test code = 80.6 fL 80.6-95.5 787-2) MCH (test code = 25.5 pg 25.9-32.8 L 785-6) MCHC (test code = 31.6 g/dL 31.6-35.1 786-4) RDW-SD (test code = 44.6 fL 39-49.9 23536-8) RDW-CV (test code = 15.4 % 12-15.5 788-0) PLT (test code = See_Comment [Automated 777-3) message] The sy stem which generated this result transmitted reference range : 166 - 358 10*3/ ?L. The reference r radha was not used to interpret this result as normal/abnormal . MPV (test code = 10.1 fL 9.5-12.9 33852-8) NRBC/100 WBC (test See_Comment [Automat ed code = [id number]) message] The system which generated this result transmitted reference range : 0.0 - 10.0 /100 WBCs. The refer ence range was not u sed to interpret th is result as normal/abnormal . NRBC x10^3 (test code <0.01 See_Comment [Auto mated = [id number]) message] The s ystem which generated this result transmitted reference range : 10*3/?L. The reference range was not used to interpret this result as normal/abnormal . GRAN MAT (NEUT) % 69.7 % (test code = 770-8) IMM GRAN % (test code 0.90 % = [id number]) LYMPH % (test code = 22.3 % 736-9) MONO % (test code = 5.8 % 5905-5) EOS % (test code = 1.1 % 713-8) BASO % (test code = 0.2 % 706-2) GRAN MAT x10^3(ANC) 9.76 10*3/uL 1.88-7.09 H (test code = [id number]) IMM GRAN x10^3 (test 0.12 10*3/uL 0-0.06 H code = [id number]) LYMPH x10^3 (test code 3.12 10*3/uL 1.32-3.29 = 731-0) MONO x10^3 (test code 0.81 10*3/uL 0.33-0.92 = 742-7) EOS x10^3 (test code = 0.16 10*3/uL 0.03-0.39 711-2) BASO x10^3 (test code 0.03 10*3/uL 0.01-0.07 = 704-7) Lab Interpretation Abnormal (test code = 29741-7) [facility] WITH [id number] 09:21:00 Test Item Value Reference Range Interpretation Comments WBC (test code = See_Comment H [Automated 6690-2) message] The sy stem which generated this result transmitted reference range : 4.30 - 11.10 10*3/?L. The reference range was not used to interpret this result as normal/abnormal . RBC (test code = See_Comment L [Automated 789-8) message] The sy stem which generated this result transmitted reference range : 3.93 - 5.25 10*6/?L. The reference range was not used to interpret this result as normal/abnormal . HGB (test code = 9.2 g/dL 11.6-15 L 718-7) HCT (test code = 29.1 % 35.7-45.2 L 4544-3) MCV (test code = 80.6 fL 80.6-95.5 787-2) MCH (test code = 25.5 pg 25.9-32.8 L 785-6) MCHC (test code = 31.6 g/dL 31.6-35.1 786-4) RDW-SD (test code = 44.6 fL 39-49.9 91104-6) RDW-CV (test code = 15.4 % 12-15.5 788-0) PLT (test code = See_Comment [Automated 777-3) message] The sy stem which generated this result transmitted reference range : 166 - 358 10*3/ ?L. The reference r radha was not used to interpret this result as normal/abnormal . MPV (test code = 10.1 fL 9.5-12.9 71351-7) NRBC/100 WBC (test See_Comment [Automat ed code = [id number]) message] The system which generated this result transmitted reference range : 0.0 - 10.0 /100 WBCs. The refer ence range was not u sed to interpret th is result as normal/abnormal . NRBC x10^3 (test code <0.01 See_Comment [Auto mated = [id number]) message] The s ystem which generated this result transmitted reference range : 10*3/?L. The reference range was not used to interpret this result as normal/abnormal . GRAN MAT (NEUT) % 69.7 % (test code = 770-8) IMM GRAN % (test code 0.90 % = [id number]) LYMPH % (test code = 22.3 % 736-9) MONO % (test code = 5.8 % 5905-5) EOS % (test code = 1.1 % 713-8) BASO % (test code = 0.2 % 706-2) GRAN MAT x10^3(ANC) 9.76 10*3/uL 1.88-7.09 H (test code = 4298585908) IMM GRAN x10^3 (test 0.12 10*3/uL 0-0.06 H code = 4256535237) LYMPH x10^3 (test code 3.12 10*3/uL 1.32-3.29 = 731-0) MONO x10^3 (test code 0.81 10*3/uL 0.33-0.92 = 742-7) EOS x10^3 (test code = 0.16 10*3/uL 0.03-0.39 711-2) BASO x10^3 (test code 0.03 10*3/uL 0.01-0.07 = 704-7) Lab Interpretation Abnormal (test code = 39000-6) [facility] (D) IMMUNE [id number] 02:59:23 Test Item Value Reference Range Interpretation Comments RHIG CANDIDATE? No- see comment Patient i s not a (test code = candidate for R hIg- 5055) Patient is Rh Positive.Perfor med at [facility] Laboratory Services - [facility] Blood [address] [place] [address]Fkvy Free: [phone] A No. [id number] [facility] (D) IMMUNE [id number] 02:59:23 Test Item Value Reference Range Interpretation Comments RHIG CANDIDATE? No- see comment Patient i s not a (test code = candidate for R hIg- 5055) Patient is Rh Positive.Perfor med at [facility] Laboratory [facility] - [facility] Blood [place] [address]Toll Free: [phone] A No. [id number] [facility] (D) IMMUNE [id number] 02:59:23 Test Item Value Reference Range Interpretation Comments RHIG CANDIDATE? No- see comment Patient i s not a (test code = candidate for R hIg- 5055) Patient is Rh Positive.Perfor med at [facility] Laboratory [facility] - [facility] Blood [address] [address]Pdlq Free: [phone] A No. [id number] [facility] (D) IMMUNE [id number] 02:59:23 Test Item Value Reference Range Interpretation Comments RHIG CANDIDATE? No- see comment Patient i s not a (test code = candidate for R hIg- 5055) Patient is Rh Positive.Perfor med at [facility] Laboratory [facility] - [facility] Blood [address] [address]Gdbe Free: [phone] A No. [id number] [facility] (D) IMMUNE [id number] 02:59:23 Test Item Value Reference Range Interpretation Comments RHIG CANDIDATE? No- see comment Patient i s not a (test code = candidate for R hIg- 5055) Patient is Rh Positive.Perfor med at [facility] Laboratory [facility] - [facility] Blood [address] [address]Gvxf Free: [phone] A No. [id number] [facility] (D) IMMUNE [id number] 02:59:23 Test Item Value Reference Range Interpretation Comments RHIG CANDIDATE? No- see comment Patient i s not a (test code = candidate for R hIg- 5055) Patient is Rh Positive.Perfor med at [facility] Laboratory [facility] Blood [address] [address]Kqgn Free: [phone] A No. [id number] [facility] (D) IMMUNE [id number] 02:59:23 Test Item Value Reference Range Interpretation Comments RHIG CANDIDATE? No- see comment Patient i s not a (test code = candidate for R hIg- 5055) Patient is Rh Positive.Perfor med at [facility] Laboratory [facility] Blood [place] [address]Toll Free: [phone] A No. [id number] [facility] (D) IMMUNE [id number] 02:59:23 Test Item Value Reference Range Interpretation Comments RHIG CANDIDATE? No- see comment Patient i s not a (test code = candidate for R hIg- 5055) Patient is Rh Positive.Perfor med at [facility] Blood [address] Free: [phone] A No. [id number] [facility] () IMMUNE [id number] 02:59:23 Test Item Value Reference Range Interpretation Comments RHIG CANDIDATE? No- see comment Patient i s not a (test code = candidate for R hIg- 5055) Patient is Rh Positive.Perfor med at [facility] Blood [address] Free: [phone] A No. [id number] [facility] (D) IMMUNE [id number] 02:59:23 Test Item Value Reference Range Interpretation Comments RHIG CANDIDATE? No- see comment Patient i s not a (test code = candidate for R hIg- 5055) Patient is Rh Positive.Perfor med at [facility] Blood [place] [address]Toll Free: [phone] A No. [id number] [facility] (D) IMMUNE [id number] 02:59:23 Test Item Value Reference Range Interpretation Comments RHIG CANDIDATE? No- see comment Patient i s not a (test code = candidate for R hIg- 5055) Patient is Rh Positive.Perfor med at [facility] Laboratory [facility] Blood [address] [place], [place] [address]Cics Free: [phone] A No. [id number] [facility] [id number] 23:54:29 Spike Wilkins MD ? ? 08/21/2019 ?6:57 PM Central Neuraxial Block Performed by: Spike Wilkins MDAuthorized by: Spike Lopes MD Start Time: ?08/21/2019 6:43 PMEnd Time: ?08/21/2019 6:44 PMReason for Block: ?Surgical anesthesiaStaff: ?Anesthesiologist: ?Spike Lopes MD ?Resident/ZONE MAINTENANCE TECHNICIAN: ?Spike Wilkins MD ?Performed by: ?Resident/ZONE MAINTENANCE TECHNICIAN patient identified, IV checked, risks and benefits explained, monitors and equipment checked, timeout performed, ob surgical consent/approval, pre-op evaluation, surgical consent, site marked and anesthesia consentEpidural: ?Patient Position: ?Sitting ?Prep: Betadine ? ?Monitoring: ? heart rate / toco and NIBP ?Location: ?Lumbar (1-5) ?Lumbar: ?L4-L5 ?Approach: ?MidlineInjection Technique: ?DAVID salineNeedle and Epidural Catheter: ?Epidural Kit: ?BBraun ?Needle Type: ?Tuohy ?Needle Length: ?3.5 in (8.89 cm)Catheter Type: ?End holeTest Dose: ?No testdoseNotes: ? Pt prepped and draped in usual sterile fashion after informed consent obtained. Lidocaine infiltrated over L4-5 interspace. Spinal needle advanced until return of fluid, medications instilled with good barbotage. Pt tolerated well. Fall precautions discussed. [facility] [id number] 23:54:29Spike Wilkins MD ? ? 08/21/2019 ?6:57 PM Central Neuraxial Block Performed by: Spike Wilkins MDAuthorized by: Spike Lopes MD Start Time: ?08/21/2019 6:43 PMEnd Time: ?08/21/2019 6:44 PMReason for Block: ?Surgical anesthesiaStaff: ?Anesthesiologist: ?Spike Lopes MD ?Resident/ZONE MAINTENANCE TECHNICIAN: ?Spike Wilkins MD ?Performed by: ?Resident/ZONE MAINTENANCE TECHNICIAN patient identified, IV checked, risks and benefits explained, monitors and equipment checked, timeout performed, ob surgical consent/approval, pre-op evaluation, surgical consent, site marked and anesthesia consentEpidural: ?Patient Position: ?Sitting ?Prep: Betadine ? ?Monitoring: ? heart rate / toco and NIBP ?Location: ?Lumbar (1-5) ?Lumbar: ?L4-L5 ?Approach: ?MidlineInjection Technique: ?DAVID salineNeedle and Epidural Catheter: ?Epidural Kit: ?BBraun ?Needle Type: ?Tuohy ?Needle Length: ?3.5 in (8.89 cm)Catheter Type: ?End holeTest Dose: ?No testdoseNotes: ? Pt prepped and draped in usual sterile fashion after informed consent obtained. Lidocaine infiltrated over L4-5 interspace. Spinal needle advanced until return of fluid, medications instilled with good barbotage. Pt tolerated well. Fall precautions discussed. [facility] [id number] 23:54:29 Spike Wilkins MD ? ? 08/21/2019 ?6:57 PM Central Neuraxial Block Performed by: Spike Wilkins MDAuthorized by: Spike Lopes MD Start Time: ?08/21/2019 6:43 PMEnd Time: ?08/21/2019 6:44 PMReason for Block: ?Surgical anesthesiaStaff: ?Anesthesiologist: ?Spike Lopes MD ?Resident/ZONE MAINTENANCE TECHNICIAN: ?Spike Wilkins MD ?Performed by: ?Resident/ZONE MAINTENANCE TECHNICIAN patient identified, IV checked, risks and benefits explained, monitors and equipment checked, timeout performed, ob surgical consent/approval, pre-op evaluation, surgical consent, site marked and anesthesia consentEpidural: ?Patient Position: ?Sitting ?Prep: Betadine ? ?Monitoring: ? heart rate / toco and NIBP ?Location: ?Lumbar (1-5) ?Lumbar: ?L4-L5 ?Approach: ?MidlineInjection Technique: ?DAVID salineNeedle and Epidural Catheter: ?Epidural Kit: ?BBraun ?Needle Type: ?Tuohy ?Needle Length: ?3.5 in (8.89 cm)Catheter Type: ?End holeTest Dose: ?No testdoseNotes: ? Pt prepped and draped in usual sterile fashion after informed consent obtained. Lidocaine infiltrated over L4-5 interspace. Spinal needle advanced until return of fluid, medications instilled with good barbotage. Pt tolerated well. Fall precautions discussed. [facility] [id number] 23:54:29Spike Wilkins MD ? ? 08/21/2019 ?6:57 PM Central Neuraxial Block Performed by: Spike Wilkins MDAuthorized by: Spike Lopes MD Start Time: ?08/21/2019 6:43 PMEnd Time: ?08/21/2019 6:44 PMReason for Block: ?Surgical anesthesiaStaff: ?Anesthesiologist: ?Spike Lopes MD ?Resident/ZONE MAINTENANCE TECHNICIAN: ?Spike Wilkins MD ?Performed by: ?Resident/ZONE MAINTENANCE TECHNICIAN patient identified, IV checked, risks and benefits explained, monitors and equipment checked, timeout performed, ob surgical consent/approval, pre-op evaluation, surgical consent, site marked and anesthesia consentEpidural: ?Patient Position: ?Sitting ?Prep: Betadine ? ?Monitoring: ? heart rate / toco and NIBP ?Location: ?Lumbar (1-5) ?Lumbar: ?L4-L5 ?Approach: ?MidlineInjection Technique: ?DAVID salineNeedle and Epidural Catheter: ?Epidural Kit: ?BBraun ?Needle Type: ?Tuohy ?Needle Length: ?3.5 in (8.89 cm)Catheter Type: ?End holeTest Dose: ?No testdoseNotes: ? Pt prepped and draped in usual sterile fashion after informed consent obtained. Lidocaine infiltrated over L4-5 interspace. Spinal needle advanced until return of fluid, medications instilled with good barbotage. Pt tolerated well. Fall precautions discussed. [facility] [id number] 23:54:29 Spike Wilkins MD ? ? 08/21/2019 ?6:57 PM Central Neuraxial Block Performed by: Spike Wilkins MDAuthorized by: Spike Lopes MD Start Time: ?08/21/2019 6:43 PMEnd Time: ?08/21/2019 6:44 PMReason for Block: ?Surgical anesthesiaStaff: ?Anesthesiologist: ?Spike Lopes MD ?Resident/ZONE MAINTENANCE TECHNICIAN: ?Spike Wilkins MD ?Performed by: ?Resident/ZONE MAINTENANCE TECHNICIAN patient identified, IV checked, risks and benefits explained, monitors and equipment checked, timeout performed, ob surgical consent/approval, pre-op evaluation, surgical consent, site marked and anesthesia consentEpidural: ?Patient Position: ?Sitting ?Prep: Betadine ? ?Monitoring: ? heart rate / toco and NIBP ?Location: ?Lumbar (1-5) ?Lumbar: ?L4-L5 ?Approach: ?MidlineInjection Technique: ?DAVID salineNeedle and Epidural Catheter: ?Epidural Kit: ?BBraun ?Needle Type: ?Tuohy ?Needle Length: ?3.5 in (8.89 cm)Catheter Type: ?End holeTest Dose: ?No testdoseNotes: ? Pt prepped and draped in usual sterile fashion after informed consent obtained. Lidocaine infiltrated over L4-5 interspace. Spinal needle advanced until return of fluid, medications instilled with good barbotage. Pt tolerated well. Fall precautions discussed. [facility] [id number] 23:54:29Spike Wilkins MD ? ? 08/21/2019 ?6:57 PM Central Neuraxial Block Performed by: Spike Wilkins MDAuthorized by: Spike Lopes MD Start Time: ?08/21/2019 6:43 PMEnd Time: ?08/21/2019 6:44 PMReason for Block: ?Surgical anesthesiaStaff: ?Anesthesiologist: ?Spike Lopes MD ?Resident/ZONE MAINTENANCE TECHNICIAN: ?Spike Wilkins MD ?Performed by: ?Resident/ZONE MAINTENANCE TECHNICIAN patient identified, IV checked, risks and benefits explained, monitors and equipment checked, timeout performed, ob surgical consent/approval, pre-op evaluation, surgical consent, site marked and anesthesia consentEpidural: ?Patient Position: ?Sitting ?Prep: Betadine ? ?Monitoring: ? heart rate / toco and NIBP ?Location: ?Lumbar (1-5) ?Lumbar: ?L4-L5 ?Approach: ?MidlineInjection Technique: ?DAVID salineNeedle and Epidural Catheter: ?Epidural Kit: ?BBraun ?Needle Type: ?Tuohy ?Needle Length: ?3.5 in (8.89 cm)Catheter Type: ?End holeTest Dose: ?No testdoseNotes: ? Pt prepped and draped in usual sterile fashion after informed consent obtained. Lidocaine infiltrated over L4-5 interspace. Spinal needle advanced until return of fluid, medications instilled with good barbotage. Pt tolerated well. Fall precautions discussed. [facility] [id number] 23:54:29 Spike Wilkins MD ? ? 08/21/2019 ?6:57 PM Central Neuraxial Block Performed by: Spike Wilkins MDAuthorized by: Spike Lopes MD Start Time: ?08/21/2019 6:43 PMEnd Time: ?08/21/2019 6:44 PMReason for Block: ?Surgical anesthesiaStaff: ?Anesthesiologist: ?Spike Lopes MD ?Resident/ZONE MAINTENANCE TECHNICIAN: ?Spike Wilkins MD ?Performed by: ?Resident/ZONE MAINTENANCE TECHNICIAN patient identified, IV checked, risks and benefits explained, monitors and equipment checked, timeout performed, ob surgical consent/approval, pre-op evaluation, surgical consent, site marked and anesthesia consentEpidural: ?Patient Position: ?Sitting ?Prep: Betadine ? ?Monitoring: ? heart rate / toco and NIBP ?Location: ?Lumbar (1-5) ?Lumbar: ?L4-L5 ?Approach: ?MidlineInjection Technique: ?DAVID salineNeedle and Epidural Catheter: ?Epidural Kit: ?BBraun ?Needle Type: ?Tuohy ?Needle Length: ?3.5 in (8.89 cm)Catheter Type: ?End holeTest Dose: ?No testdoseNotes: ? Pt prepped and draped in usual sterile fashion after informed consent obtained. Lidocaine infiltrated over L4-5 interspace. Spinal needle advanced until return of fluid, medications instilled with good barbotage. Pt tolerated well. Fall precautions discussed. [facility] [id number] 23:54:29Spike Wilkins MD ? ? 08/21/2019 ?6:57 PM Central Neuraxial Block Performed by: Spike Wilkins MDAuthorized by: Spike Lopes MD Start Time: ?08/21/2019 6:43 PMEnd Time: ?08/21/2019 6:44 PMReason for Block: ?Surgical anesthesiaStaff: ?Anesthesiologist: ?Spike Lopes MD ?Resident/ZONE MAINTENANCE TECHNICIAN: ?Spike Wilkins MD ?Performed by: ?Resident/ZONE MAINTENANCE TECHNICIAN patient identified, IV checked, risks and benefits explained, monitors and equipment checked, timeout performed, ob surgical consent/approval, pre-op evaluation, surgical consent, site marked and anesthesia consentEpidural: ?Patient Position: ?Sitting ?Prep: Betadine ? ?Monitoring: ? heart rate / toco and NIBP ?Location: ?Lumbar (1-5) ?Lumbar: ?L4-L5 ?Approach: ?MidlineInjection Technique: ?DAVID salineNeedle and Epidural Catheter: ?Epidural Kit: ?BBraun ?Needle Type: ?Tuohy ?Needle Length: ?3.5 in (8.89 cm)Catheter Type: ?End holeTest Dose: ?No testdoseNotes: ? Pt prepped and draped in usual sterile fashion after informed consent obtained. Lidocaine infiltrated over L4-5 interspace. Spinal needle advanced until return of fluid, medications instilled with good barbotage. Pt tolerated well. Fall precautions discussed. [facility] [id number] 23:54:29 Spike Wilkins MD ? ? 08/21/2019 ?6:57 PM Central Neuraxial Block Performed by: Spike Wilkins MDAuthorized by: Spike Lopes MD Start Time: ?08/21/2019 6:43 PMEnd Time: ?08/21/2019 6:44 PMReason for Block: ?Surgical anesthesiaStaff: ?Anesthesiologist: ?Spike Lopes MD ?Resident/ZONE MAINTENANCE TECHNICIAN: ?Spike Wilkins MD ?Performed by: ?Resident/ZONE MAINTENANCE TECHNICIAN patient identified, IV checked, risks and benefits explained, monitors and equipment checked, timeout performed, ob surgical consent/approval, pre-op evaluation, surgical consent, site marked and anesthesia consentEpidural: ?Patient Position: ?Sitting ?Prep: Betadine ? ?Monitoring: ? heart rate / toco and NIBP ?Location: ?Lumbar (1-5) ?Lumbar: ?L4-L5 ?Approach: ?MidlineInjection Technique: ?DAVID salineNeedle and Epidural Catheter: ?Epidural Kit: ?BBraun ?Needle Type: ?Tuohy ?Needle Length: ?3.5 in (8.89 cm)Catheter Type: ?End holeTest Dose: ?No testdoseNotes: ? Pt prepped and draped in usual sterile fashion after informed consent obtained. Lidocaine infiltrated over L4-5 interspace. Spinal needle advanced until return of fluid, medications instilled with good barbotage. Pt tolerated well. Fall precautions discussed. [facility] [id number] 23:54:29Spike Wilkins MD ? ? 08/21/2019 ?6:57 PM Central Neuraxial Block Performed by: Spike Wilkins MDAuthorized by: Spike Lopes MD Start Time: ?08/21/2019 6:43 PMEnd Time: ?08/21/2019 6:44 PMReason for Block: ?Surgical anesthesiaStaff: ?Anesthesiologist: ?Spike Lopes MD ?Resident/ZONE MAINTENANCE TECHNICIAN: ?Spike Wilkins MD ?Performed by: ?Resident/ZONE MAINTENANCE TECHNICIAN patient identified, IV checked, risks and benefits explained, monitors and equipment checked, timeout performed, ob surgical consent/approval, pre-op evaluation, surgical consent, site marked and anesthesia consentEpidural: ?Patient Position: ?Sitting ?Prep: Betadine ? ?Monitoring: ? heart rate / toco and NIBP ?Location: ?Lumbar (1-5) ?Lumbar: ?L4-L5 ?Approach: ?MidlineInjection Technique: ?DAVID salineNeedle and Epidural Catheter: ?Epidural Kit: ?BBraun ?Needle Type: ?Tuohy ?Needle Length: ?3.5 in (8.89 cm)Catheter Type: ?End holeTest Dose: ?No testdoseNotes: ? Pt prepped and draped in usual sterile fashion after informed consent obtained. Lidocaine infiltrated over L4-5 interspace. Spinal needle advanced until return of fluid, medications instilled with good barbotage. Pt tolerated well. Fall precautions discussed. [facility] Surface [id number] 14:45:00 Test Item Value Reference Range Interpretation Comments HBsAg Semi-Quantitative (test code = Negative Negative 5195-3) [facility] Surface [id number] 14:45:00 Test Item Value Reference Range Interpretation Comments HBsAg Semi-Quantitative (test code = Negative Negative 5195-3) [facility] Surface [id number] 14:45:00 Test Item Value Reference Range Interpretation Comments HBsAg Semi-Quantitative (test code = Negative Negative 5195-3) [facility] Surface [id number] 14:45:00 Test Item Value Reference Range Interpretation Comments HBsAg Semi-Quantitative (test code = Negative Negative 5195-3) [facility] Surface [id number] 14:45:00 Test Item Value Reference Range Interpretation Comments HBsAg Semi-Quantitative (test code = Negative Negative 5195-3) [facility] Surface [id number] 14:45:00 Test Item Value Reference Range Interpretation Comments HBsAg Semi-Quantitative (test code = Negative Negative 5195-3) [facility] Surface [id number] 14:45:00 Test Item Value Reference Range Interpretation Comments HBsAg Semi-Quantitative (test code = Negative Negative 5195-3) [facility] Surface [id number] 14:45:00 Test Item Value Reference Range Interpretation Comments HBsAg Semi-Quantitative (test code = Negative Negative 5195-3) [facility] Surface [id number] 14:45:00 Test Item Value Reference Range Interpretation Comments HBsAg Semi-Quantitative (test code = Negative Negative 5195-3) [facility] Surface [id number] 14:45:00 Test Item Value Reference Range Interpretation Comments HBsAg Semi-Quantitative (test code = Negative Negative 5195-3) [facility] Surface [id number] 14:45:00 Test Item Value Reference Range Interpretation Comments HBsAg Semi-Quantitative (test code = Negative Negative 5195-3) [facility] and Screen - ONCE [id number] 14:34:08 Test Item Value Reference Range Interpretation Comments ABO & RH (test code O POSITIVE Performe d at [facility] = 20) Laboratory [facility] Blood [facility] [place] [address]Pbpf Free: [phone] A No. [id number] IAT (test code = Negative Performed a t [facility] 1185) Laboratory [facility] Blood [address] [address]Jfoq Free: [phone] A No. [id number] [facility] and Screen - ONCE [id number] 14:34:08 Test Item Value Reference Range Interpretation Comments ABO & RH (test code O POSITIVE Performe d at [facility] = 20) Laboratory [facility] Blood [facility] [address] [place] [address] s [address]Ancu Free: [phone] A No. [id number] IAT (test code = Negative Performed a t [facility] 1185) Laboratory [facility] Blood Bank[address] [place] [address] s [address]Mtlv Free: [phone] A No. [id number] [facility] and Screen - ONCE [id number] 14:34:08 Test Item Value Reference Range Interpretation Comments ABO & RH (test code O POSITIVE Performe d at [facility] = 20) Laboratory [facility] Blood [facility] [address] [place] [address] s [address]Kihc Free: [phone] A No. [id number] IAT (test code = Negative Performed a t [facility] 1185) Laboratory [facility] Blood Bank[address] [place] [address] s [address]Qulf Free: [phone] A No. [id number] [facility] and Screen - ONCE [id number] 14:34:08 Test Item Value Reference Range Interpretation Comments ABO & RH (test code O POSITIVE Performe d at [facility] = 20) Laboratory [facility] Blood Bank[address] [place] [address] s [address]Grdk Free: [phone] A No. [id number] IAT (test code = Negative Performed a t [facility] 1185) Laboratory [facility] Blood [address] s [address]Fxdv Free: [phone] A No. [id number] [facility] and Screen - ONCE [id number] 14:34:08 Test Item Value Reference Range Interpretation Comments ABO & RH (test code O POSITIVE Performe d at [facility] = 20) Laboratory [facility] Blood Bank[address] [place] [address] s [address]Gmsb Free: [phone] A No. [id number] IAT (test code = Negative Performed a t [facility] 1185) Laboratory [facility] Blood [address] s [address]Agwa Free: [phone] A No. [id number] [facility] and Screen - ONCE [id number] 14:34:08 Test Item Value Reference Range Interpretation Comments ABO & RH (test code O POSITIVE Performe d at [facility] = 20) Laboratory [facility] [address] [place] [address] s [address]Rnvr Free: [phone] A No. [id number] IAT (test code = Negative Performed a t [facility] 1185) Laboratory [facility] Blood [address] [place] [address] s [address]Izco Free: [phone] A No. [id number] [facility] and Screen - ONCE [id number] 14:34:08 Test Item Value Reference Range Interpretation Comments ABO & RH (test code O POSITIVE Performe d at [facility] = 20) Laboratory [facility] Blood [address] s [address]Lrkx Free: [phone] A No. [id number] IAT (test code = Negative Performed a t [facility] 1185) Laboratory [facility] Blood [address] [address]Kbtd Free: [phone] A No. [id number] [facility] and Screen - ONCE [id number] 14:34:08 Test Item Value Reference Range Interpretation Comments ABO & RH (test code O POSITIVE Performe d at [facility] = 20) Laboratory [facility] Blood [address] [address]Fomq Free: [phone] A No. [id number] IAT (test code = Negative Performed a t [facility] 1185) Laboratory [facility] Blood [address] [address]Irfb Free: [phone] A No. [id number] [facility] and Screen - ONCE [id number] 14:34:08 Test Item Value Reference Range Interpretation Comments ABO & RH (test code O POSITIVE Performe d at [facility] = 20) Laboratory [facility] Blood [address] [address]Vjgo Free: [phone] A No. [id number] IAT (test code = Negative Performed a t [facility] 1185) Laboratory [facility] Blood [address] s [address]Zoeq Free: [phone] A No. [id number] [facility] and Screen - ONCE [id number] 14:34:08 Test Item Value Reference Range Interpretation Comments ABO & RH (test code O POSITIVE Performe d at [facility] = 20) Laboratory [facility] Blood Bank[address] [place] [address]Btmk Free: [phone] A No. [id number] IAT (test code = Negative Performed a t [facility] 1185) Laboratory [facility] Blood Bank[address] [place] [address]Hmim Free: [phone] A No. [id number] [facility] - ONCE [id number] 14:34:08 Test Item Value Reference Range Interpretation Comments ABO & RH (test code O POSITIVE Performe d at [facility] = 20) Laboratory [facility] Blood [address] s [address]Aimh Free: [phone] A No. [id number] IAT (test code = Negative Performed a t [facility] 1185) Laboratory [facility] Blood [address] [address]Axeo Free: [phone] A No. [id number] [facility] [id number] 12:04:00 Test Item Value Reference Range Interpretation Comments SARS-CoV-2 (test code = Not Detected Not Detected 55610-2) BONNIE (test code = BONNIE) ID NOW COVID-19 Assay is an isothermal nucleic acid amplification test intended for the qualitative detection of nucleic acid from SARS-CoV-2 viral RNA in nasopharyngeal ([employer]) specimens. It is used under Emergency Use Authorization (EUA) by FDA. The limit of detection (LOD) of the assay is 125 Genome Equivalents/mL. A positive result is indicative of the presence of SARS-CoV-2 RNA. ?Clinical correlation with patient history and other diagnostic information is necessary to determine patient infection status. A negative (Not Detected) result does not preclude SARS-CoV-2 infection. Clinical correlation with patient history and other diagnostic information should be used in patient management decisions. Invalid: Please collect a new specimen for repeat patient testing if clinically indicated. Lab Interpretation Normal (test code = 58039-7) [facility] [id number] 12:04:00 Test Item Value Reference Range Interpretation Comments SARS-CoV-2 (test code = Not Detected Not Detected 88601-4) BONNIE (test code = BONNIE) ID NOW COVID-19 Assay is an isothermal nucleic acid amplification test intended for the qualitative detection of nucleic acid from SARS-CoV-2 viral RNA in nasopharyngeal ([employer]) specimens. It is used under Emergency Use Authorization (EUA) by FDA. The limit of detection (LOD) of the assay is 125 Genome Equivalents/mL. A positive result is indicative of the presence of SARS-CoV-2 RNA. ?Clinical correlation with patient history and other diagnostic information is necessary to determine patient infection status. A negative (Not Detected) result does not preclude SARS-CoV-2 infection. Clinical correlation with patient history and other diagnostic information should be used in patient management decisions. Invalid: Please collect a new specimen for repeat patient testing if clinically indicated. Lab Interpretation Normal (test code = 39633-5) [facility] [id number] 12:04:00 Test Item Value Reference Range Interpretation Comments SARS-CoV-2 (test code = Not Detected Not Detected 02671-0) BONNIE (test code = BONNIE) ID NOW COVID-19 Assay is an isothermal nucleic acid amplification test intended for the qualitative detection of nucleic acid from SARS-CoV-2 viral RNA in nasopharyngeal ([employer]) specimens. It is used under Emergency Use Authorization (EUA) by [facility]. The limit of detection (LOD) of the assay is 125 Genome Equivalents/mL. A positive result is indicative of the presence of SARS-CoV-2 RNA. ?Clinical correlation with patient history and other diagnostic information is necessary to determine patient infection status. A negative (Not Detected) result does not preclude SARS-CoV-2 infection. Clinical correlation with patient history and other diagnostic information should be used in patient management decisions. Invalid: Please collect a new specimen for repeat patient testing if clinically indicated. Lab Interpretation Normal (test code = 18088-7) [facility] [id number] 12:04:00 Test Item Value Reference Range Interpretation Comments SARS-CoV-2 (test code = Not Detected Not Detected 44410-0) BONNIE (test code = BONNIE) ID NOW COVID-19 Assay is an isothermal nucleic acid amplification test intended for the qualitative detection of nucleic acid from SARS-CoV-2 viral RNA in nasopharyngeal ([employer]) specimens. It is used under Emergency Use Authorization (EUA) by FDA. The limit of detection (LOD) of the assay is 125 Genome Equivalents/mL. A positive result is indicative of the presence of SARS-CoV-2 RNA. ?Clinical correlation with patient history and other diagnostic information is necessary to determine patient infection status. A negative (Not Detected) result does not preclude SARS-CoV-2 infection. Clinical correlation with patient history and other diagnostic information should be used in patient management decisions. Invalid: Please collect a new specimen for repeat patient testing if clinically indicated. Lab Interpretation Normal (test code = 33630-6) [facility] [id number] 12:04:00 Test Item Value Reference Range Interpretation Comments SARS-CoV-2 (test code = Not Detected Not Detected 08360-0) BONNIE (test code = BONNIE) ID NOW COVID-19 Assay is an isothermal nucleic acid amplification test intended for the qualitative detection of nucleic acid from SARS-CoV-2 viral RNA in nasopharyngeal ([employer]) specimens. It is used under Emergency Use Authorization (EUA) by [facility]. The limit of detection (LOD) of the assay is 125 Genome Equivalents/mL. A positive result is indicative of the presence of SARS-CoV-2 RNA. ?Clinical correlation with patient history and other diagnostic information is necessary to determine patient infection status. A negative (Not Detected) result does not preclude SARS-CoV-2 infection. Clinical correlation with patient history and other diagnostic information should be used in patient management decisions. Invalid: Please collect a new specimen for repeat patient testing if clinically indicated. Lab Interpretation Normal (test code = 76221-5) [facility] [id number] 12:04:00 Test Item Value Reference Range Interpretation Comments SARS-CoV-2 (test code = Not Detected Not Detected 61400-5) BONNIE (test code = BONNIE) ID NOW COVID-19 Assay is an isothermal nucleic acid amplification test intended for the qualitative detection of nucleic acid from SARS-CoV-2 viral RNA in nasopharyngeal ([employer]) specimens. It is used under Emergency Use Authorization (EUA) by FDA. The limit of detection (LOD) of the assay is 125 Genome Equivalents/mL. A positive result is indicative of the presence of SARS-CoV-2 RNA. ?Clinical correlation with patient history and other diagnostic information is necessary to determine patient infection status. A negative (Not Detected) result does not preclude SARS-CoV-2 infection. Clinical correlation with patient history and other diagnostic information should be used in patient management decisions. Invalid: Please collect a new specimen for repeat patient testing if clinically indicated. Lab Interpretation Normal (test code = 76887-1) [facility] [id number] 12:04:00 Test Item Value Reference Range Interpretation Comments SARS-CoV-2 (test code = Not Detected Not Detected 73192-7) BONNIE (test code = BONNIE) ID NOW COVID-19 Assay is an isothermal nucleic acid amplification test intended for the qualitative detection of nucleic acid from SARS-CoV-2 viral RNA in nasopharyngeal ([employer]) specimens. It is used under Emergency Use Authorization (EUA) by FDA. The limit of detection (LOD) of the assay is 125 Genome Equivalents/mL. A positive result is indicative of the presence of SARS-CoV-2 RNA. ?Clinical correlation with patient history and other diagnostic information is necessary to determine patient infection status. A negative (Not Detected) result does not preclude SARS-CoV-2 infection. Clinical correlation with patient history and other diagnostic information should be used in patient management decisions. Invalid: Please collect a new specimen for repeat patient testing if clinically indicated. Lab Interpretation Normal (test code = 35909-8) [facility] [id number] 12:04:00 Test Item Value Reference Range Interpretation Comments SARS-CoV-2 Rapid ID NOW Not Detected Not Detected (test code = 21168-6) BONNIE (test code = BONNIE) ID NOW COVID-19 Assay is an isothermal nucleic acid amplification test intended for the qualitative detection of nucleic acid from SARS-CoV-2 viral RNA in nasopharyngeal ([employer]) specimens. It is used under Emergency Use Authorization (EUA) by FDA. The limit of detection (LOD) of the assay is 125 Genome Equivalents/mL. A positive result is indicative of the presence of SARS-CoV-2 RNA. ?Clinical correlation with patient history and other diagnostic information is necessary to determine patient infection status. A negative (Not Detected) result does not preclude SARS-CoV-2 infection. Clinical correlation with patient history and other diagnostic information should be used in patient management decisions. Invalid: Please collect a new specimen for repeat patient testing if clinically indicated. Lab Interpretation Normal (test code = 41624-4) [facility] [id number] 12:04:00 Test Item Value Reference Range Interpretation Comments SARS-CoV-2 Rapid ID NOW Not Detected Not Detected (test code = 31416-4) BONNIE (test code = BONNIE) ID NOW COVID-19 Assay is an isothermal nucleic acid amplification test intended for the qualitative detection of nucleic acid from SARS-CoV-2 viral RNA in nasopharyngeal ([employer]) specimens. It is used under Emergency Use Authorization (EUA) by [facility]. The limit of detection (LOD) of the assay is 125 Genome Equivalents/mL. A positive result is indicative of the presence of SARS-CoV-2 RNA. ?Clinical correlation with patient history and other diagnostic information is necessary to determine patient infection status. A negative (Not Detected) result does not preclude SARS-CoV-2 infection. Clinical correlation with patient history and other diagnostic information should be used in patient management decisions. Invalid: Please collect a new specimen for repeat patient testing if clinically indicated. Lab Interpretation Normal (test code = 56865-2) [facility] [id number] 12:04:00 Test Item Value Reference Range Interpretation Comments SARS-CoV-2 Rapid ID NOW Not Detected Not Detected (test code = 91135-1) BONNIE (test code = BONNIE) ID NOW COVID-19 Assay is an isothermal nucleic acid amplification test intended for the qualitative detection of nucleic acid from SARS-CoV-2 viral RNA in nasopharyngeal ([employer]) specimens. It is used under Emergency Use Authorization (EUA) by FDA. The limit of detection (LOD) of the assay is 125 Genome Equivalents/mL. A positive result is indicative of the presence of SARS-CoV-2 RNA. ?Clinical correlation with patient history and other diagnostic information is necessary to determine patient infection status. A negative (Not Detected) result does not preclude SARS-CoV-2 infection. Clinical correlation with patient history and other diagnostic information should be used in patient management decisions. Invalid: Please collect a new specimen for repeat patient testing if clinically indicated. Lab Interpretation Normal (test code = 85896-6) [facility] [id number] 12:04:00 Test Item Value Reference Range Interpretation Comments SARS-CoV-2 (test code = Not Detected Not Detected 90004-9) BONNIE (test code = BONNIE) ID NOW COVID-19 Assay is an isothermal nucleic acid amplification test intended for the qualitative detection of nucleic acid from SARS-CoV-2 viral RNA in nasopharyngeal ([employer]) specimens. It is used under Emergency Use Authorization (EUA) by FDA. The limit of detection (LOD) of the assay is 125 Genome Equivalents/mL. A positive result is indicative of the presence of SARS-CoV-2 RNA. ?Clinical correlation with patient history and other diagnostic information is necessary to determine patient infection status. A negative (Not Detected) result does not preclude SARS-CoV-2 infection. Clinical correlation with patient history and other diagnostic information should be used in patient management decisions. Invalid: Please collect a new specimen for repeat patient testing if clinically indicated. Lab Interpretation Normal (test code = 73420-1) [facility] URINALYSIS W/O SPECIFIC [id number] 19:12:00 Test Item Value Reference Range Interpretation Comments POCT PH U (test code = 3254) n/a 5-8 POCT U LEUK EST (test code = 3263) n/a Negative - Negative POCT U NIT (test code = 3262) n/a Negative - Negative POCT U PROT (test code = 3259) neg Negative - Negative POCT U GLU (test code = 3256) neg Negative - Negative POCT U KETONE (test code = 3258) n/a Negative - Negative POCT U BLD (test code = 3257) n/a Negative - Negative Lab Interpretation (test code = Normal 35767-8) [facility] URINALYSIS W/O SPECIFIC [id number] 19:12:00 Test Item Value Reference Range Interpretation Comments POCT PH U (test code = 3254) n/a 5-8 POCT U LEUK EST (test code = 3263) n/a Negative - Negative POCT U NIT (test code = 3262) n/a Negative - Negative POCT U PROT (test code = 3259) neg Negative - Negative POCT U GLU (test code = 3256) neg Negative - Negative POCT U KETONE (test code = 3258) n/a Negative - Negative POCT U BLD (test code = 3257) n/a Negative - Negative Lab Interpretation (test code = Normal 19218-9) [facility] URINALYSIS W/O SPECIFIC [id number] 19:12:00 Test Item Value Reference Range Interpretation Comments POCT PH U (test code = 3254) n/a 5-8 POCT U LEUK EST (test code = 3263) n/a Negative - Negative POCT U NIT (test code = 3262) n/a Negative - Negative POCT U PROT (test code = 3259) neg Negative - Negative POCT U GLU (test code = 3256) neg Negative - Negative POCT U KETONE (test code = 3258) n/a Negative - Negative POCT U BLD (test code = 3257) n/a Negative - Negative Lab Interpretation (test code = Normal 82074-9) [facility] URINALYSIS W/O SPECIFIC [id number] 19:12:00 Test Item Value Reference Range Interpretation Comments POCT PH U (test code = 3254) n/a 5-8 POCT U LEUK EST (test code = 3263) n/a Negative - Negative POCT U NIT (test code = 3262) n/a Negative - Negative POCT U PROT (test code = 3259) neg Negative - Negative POCT U GLU (test code = 3256) neg Negative - Negative POCT U KETONE (test code = 3258) n/a Negative - Negative POCT U BLD (test code = 3257) n/a Negative - Negative Lab Interpretation (test code = Normal 26961-7) [facility] URINALYSIS W/O SPECIFIC [id number] 19:12:00 Test Item Value Reference Range Interpretation Comments POCT PH U (test code = 3254) n/a 5-8 POCT U LEUK EST (test code = 3263) n/a Negative - Negative POCT U NIT (test code = 3262) n/a Negative - Negative POCT U PROT (test code = 3259) neg Negative - Negative POCT U GLU (test code = 3256) neg Negative - Negative POCT U KETONE (test code = 3258) n/a Negative - Negative POCT U BLD (test code = 3257) n/a Negative - Negative Lab Interpretation (test code = Normal 72451-9) [facility] URINALYSIS W/O SPECIFIC [id number] 19:12:00 Test Item Value Reference Range Interpretation Comments POCT PH U (test code = 3254) n/a 5-8 POCT U LEUK EST (test code = 3263) n/a Negative - Negative POCT U NIT (test code = 3262) n/a Negative - Negative POCT U PROT (test code = 3259) neg Negative - Negative POCT U GLU (test code = 3256) neg Negative - Negative POCT U KETONE (test code = 3258) n/a Negative - Negative POCT U BLD (test code = 3257) n/a Negative - Negative Lab Interpretation (test code = Normal 89990-2) [facility] URINALYSIS W/O SPECIFIC [id number] 18:41:00 Test Item Value Reference Range Interpretation Comments POCT PH U (test code = 3254) n/a 5-8 POCT U LEUK EST (test code = 3263) n/a Negative - Negative POCT U NIT (test code = 3262) n/a Negative - Negative POCT U PROT (test code = 3259) neg Negative - Negative POCT U GLU (test code = 3256) neg Negative - Negative POCT U KETONE (test code = 3258) n/a Negative - Negative POCT U BLD (test code = 3257) n/a Negative - Negative Lab Interpretation (test code = Normal 64946-7) [facility] URINALYSIS W/O SPECIFIC [id number] 18:41:00 Test Item Value Reference Range Interpretation Comments POCT PH U (test code = 3254) n/a 5-8 POCT U LEUK EST (test code = 3263) n/a Negative - Negative POCT U NIT (test code = 3262) n/a Negative - Negative POCT U PROT (test code = 3259) neg Negative - Negative POCT U GLU (test code = 3256) neg Negative - Negative POCT U KETONE (test code = 3258) n/a Negative - Negative POCT U BLD (test code = 3257) n/a Negative - Negative Lab Interpretation (test code = Normal 76525-9) [facility]PTOCOCCUS BY [id number] 14:44:00 Test Item Value Reference Range Interpretation Comments Group B Streptococcus by PCR (test Negative Negative code = 65699-6) Lab Interpretation (test code = Normal 41052-6) [facility] STREPTOCOCCUS BY [id number] 14:44:00 Test Item Value Reference Range Interpretation Comments Group B Streptococcus by PCR (test Negative Negative code = 43642-4) Lab Interpretation (test code = Normal 58569-3) [facility] STREPTOC[facility]CCUS BY [id number] 14:44:00 Test Item Value Reference Range Interpretation Comments Group B Streptococcus by PCR (test Negative Negative code = 99624-0) Lab Interpretation (test code = Normal 59199-0) [facility] STREPTOCOCCUS BY [id number] 14:44:00 Test Item Value Reference Range Interpretation Comments Group B Streptococcus by PCR (test Negative Negative code = 28473-3) Lab Interpretation (test code = Normal 40018-2) [facility] STREPTOC[facility]CCUS BY [id number] 14:44:00 Test Item Value Reference Range Interpretation Comments Group B Streptococcus by PCR (test Negative Negative code = 33274-3) Lab Interpretation (test code = Normal 95215-4) [facility] STREPTOC[facility]CCUS BY [id number] 14:44:00 Test Item Value Reference Range Interpretation Comments Group B Streptococcus by PCR (test Negative Negative code = 30206-9) Lab Interpretation (test code = Normal 40570-3) [facility] STREPTOC[facility]CCUS BY [id number] 14:44:00 Test Item Value Reference Range Interpretation Comments Group B Streptococcus by PCR (test Negative Negative code = 74411-1) Lab Interpretation (test code = Normal 13234-7) [facility] STREPTOC[facility]CCUS BY [id number] 14:44:00 Test Item Value Reference Range Interpretation Comments Group B Streptococcus by PCR (test Negative Negative code = 60521-7) Lab Interpretation (test code = Normal 46467-2) [facility] STREPTOC[facility]CCUS BY [id number] 14:44:00 Test Item Value Reference Range Interpretation Comments Group B Streptococcus by PCR (test Negative Negative code = 31447-6) Lab Interpretation (test code = Normal 54811-2) [facility] & CHLAMYDIA AMPLIFIED [id number] 17:50:00 Test Item Value Reference Range Interpretation Comments C. trachomatis Nucleic Acid (test Negative Negative code = 92023-9) N. gonorrhoeae Nucleic Acid (test Negative Negative code = 15414-6) Lab Interpretation (test code = Normal 88608-4) [facility] CHLAMYDIA AMPLIFIED [id number] 17:50:00 Test Item Value Reference Range Interpretation Comments C. trachomatis Nucleic Acid (test Negative Negative code = 77180-5) N. gonorrhoeae Nucleic Acid (test Negative Negative code = 21542-9) Lab Interpretation (test code = Normal 50409-5) [facility] CHLAMYDIA AMPLIFIED [id number] 17:50:00 Test Item Value Reference Range Interpretation Comments C. trachomatis Nucleic Acid (test Negative Negative code = 97085-0) N. gonorrhoeae Nucleic Acid (test Negative Negative code = 36742-0) Lab Interpretation (test code = Normal 68675-0) [facility] CHLAMYDIA AMPLIFIED [id number] 17:50:00 Test Item Value Reference Range Interpretation Comments C. trachomatis Nucleic Acid (test Negative Negative code = 94704-6) N. gonorrhoeae Nucleic Acid (test Negative Negative code = 57798-2) Lab Interpretation (test code = Normal 41401-1) [facility] CHLAMYDIA AMPLIFIED [id number] 17:50:00 Test Item Value Reference Range Interpretation Comments C. trachomatis Nucleic Acid (test Negative Negative code = 51152-7) N. gonorrhoeae Nucleic Acid (test Negative Negative code = 04663-1) Lab Interpretation (test code = Normal 43146-0) [facility] CHLAMYDIA AMPLIFIED [id number] 17:50:00 Test Item Value Reference Range Interpretation Comments C. trachomatis Nucleic Acid (test Negative Negative code = 27938-9) N. gonorrhoeae Nucleic Acid (test Negative Negative code = 91327-7) Lab Interpretation (test code = Normal 10233-3) [facility] CHLAMYDIA AMPLIFIED [id number] 17:50:00 Test Item Value Reference Range Interpretation Comments C. trachomatis Nucleic Acid (test Negative Negative code = 21883-7) N. gonorrhoeae Nucleic Acid (test Negative Negative code = 93935-9) Lab Interpretation (test code = Normal 47699-7) [facility] CHLAMYDIA AMPLIFIED [id number] 17:50:00 Test Item Value Reference Range Interpretation Comments C. trachomatis Nucleic Acid (test Negative Negative code = 94451-7) N. gonorrhoeae Nucleic Acid (test Negative Negative code = 26562-8) Lab Interpretation (test code = Normal 13924-0) [facility] CHLAMYDIA AMPLIFIED [id number] 17:50:00 Test Item Value Reference Range Interpretation Comments C. trachomatis Nucleic Acid (test Negative Negative code = 71350-4) N. gonorrhoeae Nucleic Acid (test Negative Negative code = 69282-0) Lab Interpretation (test code = Normal 43395-0) [facility]/O SPECIFIC [id number] 14:34:00 Test Item Value Reference Range Interpretation Comments POCT PH U (test code = 3254) n/a 5-8 POCT U LEUK EST (test code = 3263) n/a Negative - Negative POCT U NIT (test code = 3262) n/a Negative - Negative POCT U PROT (test code = 3259) neg Negative - Negative POCT U GLU (test code = 3256) neg Negative - Negative POCT U KETONE (test code = 3258) n/a Negative - Negative POCT U BLD (test code = 3257) n/a Negative - Negative Lab Interpretation (test code = Normal 08740-5) [facility] W/O SPECIFIC [id number] 14:34:00 Test Item Value Reference Range Interpretation Comments POCT PH U (test code = 3254) n/a 5-8 POCT U LEUK EST (test code = 3263) n/a Negative - Negative POCT U NIT (test code = 3262) n/a Negative - Negative POCT U PROT (test code = 3259) neg Negative - Negative POCT U GLU (test code = 3256) neg Negative - Negative POCT U KETONE (test code = 3258) n/a Negative - Negative POCT U BLD (test code = 3257) n/a Negative - Negative Lab Interpretation (test code = Normal 82795-8) [facility] URINALYSIS W/O SPECIFIC [id number] 17:25:00 Test Item Value Reference Range Interpretation Comments POCT PH U (test code = 3254) n/a 5-8 POCT U LEUK EST (test code = 3263) n/a Negative - Negative POCT U NIT (test code = 3262) na/ Negative - Negative POCT U PROT (test code = 3259) neg Negative - Negative POCT U GLU (test code = 3256) neg Negative - Negative POCT U KETONE (test code = 3258) n/a Negative - Negative POCT U BLD (test code = 3257) n/a Negative - Negative Lab Interpretation (test code = Normal 84452-4) [facility] URINALYSIS W/O SPECIFIC [id number] 17:25:00 Test Item Value Reference Range Interpretation Comments POCT PH U (test code = 3254) n/a 5-8 POCT U LEUK EST (test code = 3263) n/a Negative - Negative POCT U NIT (test code = 3262) na/ Negative - Negative POCT U PROT (test code = 3259) neg Negative - Negative POCT U GLU (test code = 3256) neg Negative - Negative POCT U KETONE (test code = 3258) n/a Negative - Negative POCT U BLD (test code = 3257) n/a Negative - Negative Lab Interpretation (test code = Normal 90013-6) [facility] OR PAMELA ONLY - [id number] 03:11:00 Test Item Value Reference Range Interpretation Comments RPR (Qualitative) (test code = Nonreactive Nonreactive 83308-7) Lab Interpretation (test code = Normal 67556-6) [facility] OR PAMELA ONLY - [id number] 03:11:00 Test Item Value Reference Range Interpretation Comments RPR (Qualitative) (test code = Nonreactive Nonreactive 33596-5) Lab Interpretation (test code = Normal 04169-3) [facility] OR PAMELA ONLY - [id number] 03:11:00 Test Item Value Reference Range Interpretation Comments RPR (Qualitative) (test code = Nonreactive Nonreactive 10682-1) Lab Interpretation (test code = Normal 21729-8) [facility] OR PAMELA ONLY - [id number] 03:11:00 Test Item Value Reference Range Interpretation Comments RPR (Qualitative) (test code = Nonreactive Nonreactive 86276-9) Lab Interpretation (test code = Normal 78896-6) [facility] OR PAMELA ONLY - [id number] 03:11:00 Test Item Value Reference Range Interpretation Comments RPR (Qualitative) (test code = Nonreactive Nonreactive 48784-3) Lab Interpretation (test code = Normal 10177-3) [facility] WORKUP, BLOOD [id number] 19:56:20 Test Item Value Reference Range Interpretation Comments ABO & RH (test code O Positive Performe d at [facility] = 20) Laboratory [facility] [place], [place] [address]Toll Free: [phone] A No. [id number] IAT (test code = Negative Performed a t [facility] 1185) Laboratory [facility] [place], [place] [address]Toll Free: [phone] A No. [id number] [facility], BLOOD [id number] 19:56:20 Test Item Value Reference Range Interpretation Comments ABO & RH (test code O Positive Performe d at [facility] = 20) Laboratory [facility] [place], [place] [id number] Free: [phone] A No. [id number] IAT (test code = Negative Performed a t [facility] 1185) Laboratory [facility] [place], [place] [id number] Free: [phone] A No. [id number] [facility] WORKUP, BLOOD [id number] 19:56:20 Test Item Value Reference Range Interpretation Comments ABO & RH (test code O Positive Performe d at [facility] = 20) Laboratory [facility] Blood Bank1 [address] [address]Toll Free: [phone] A No. [id number] IAT (test code = Negative Performed a t [facility] 1185) Laboratory [facility] [place], [place] [address]Toll Free: [phone] A No. [id number] [facility] WORKUP, BLOOD [id number] 19:56:20 Test Item Value Reference Range Interpretation Comments ABO & RH (test code O Positive Performe d at [facility] = 20) Laboratory [facility] [place], [place] [address]Toll Free: [phone] A No. [id number] IAT (test code = Negative Performed a t [facility] 1185) Laboratory [facility] [place], [place] [address]Toll Free: [phone] A No. [id number] [facility] WORKUP, BLOOD [id number] 19:56:20 Test Item Value Reference Range Interpretation Comments ABO & RH (test code O Positive Performe d at [facility] = 20) Laboratory [facility] [place], [place] [address]Toll Free: [phone] A No. [id number] IAT (test code = Negative Performed a t [facility] 1185) Laboratory [facility] [place], [place] [address]Toll Free: [phone] A No. [id number] [facility] [id number] 19:45:00 Test Item Value Reference Range Interpretation Comments HIV Negative Negative Semi-quantitative (test code = 28157-2) BONNIE (test code = Non-reactive for HIV-1 BONNIE) antigen and HIV-1/HIV-2 antibodies. ?No laboratory evidence of HIV infection. ?Repeat in 2-4 weeks if acute HIV infection is suspected. [facility] WITH [id number] 19:45:00 Test Item Value Reference Range Interpretation Comments HIV Negative Negative Semi-quantitative (test code = 14042-1) BONNIE (test code = Non-reactive for HIV-1 BONNIE) antigen and HIV-1/HIV-2 antibodies. ?No laboratory evidence of HIV infection. ?Repeat in 2-4 weeks if acute HIV infection is suspected. [facility] 1/2 AG-AB WITH [id number] 19:45:00 Test Item Value Reference Range Interpretation Comments HIV Negative Negative Semi-quantitative (test code = 50996-2) BONNIE (test code = Non-reactive for HIV-1 BONNIE) antigen and HIV-1/HIV-2 antibodies. ?No laboratory evidence of HIV infection. ?Repeat in 2-4 weeks if acute HIV infection is suspected. [facility] 1/2 AG-AB WITH [id number] 19:45:00 Test Item Value Reference Range Interpretation Comments HIV Negative Negative Semi-quantitative (test code = 57701-6) BONNIE (test code = Non-reactive for HIV-1 BONNIE) antigen and HIV-1/HIV-2 antibodies. ?No laboratory evidence of HIV infection. ?Repeat in 2-4 weeks if acute HIV infection is suspected. [facility] 1/2 AG-AB WITH [id number] 19:45:00 Test Item Value Reference Range Interpretation Comments HIV Negative Negative Semi-quantitative (test code = 83043-0) BONNIE (test code = Non-reactive for HIV-1 BONNIE) antigen and HIV-1/HIV-2 antibodies. ?No laboratory evidence of HIV infection. ?Repeat in 2-4 weeks if acute HIV infection is suspected. [facility] [id number] 18:24:00 Test Item Value Reference Range Interpretation Comments GLUC 1 HR (test code = 9251711057) 88 mg/dL 120-170 L Lab Interpretation (test code = Abnormal 14828-8) [facility] [id number] 18:24:00 Test Item Value Reference Range Interpretation Comments GLUC 1 HR (test code = 1917715335) 88 mg/dL 120-170 L Lab Interpretation (test code = Abnormal 18641-8) [facility] [id number] 18:24:00 Test Item Value Reference Range Interpretation Comments GLUC 1 HR (test code = 6761606767) 88 mg/dL 120-170 L Lab Interpretation (test code = Abnormal 39648-7) [facility] [id number] 18:24:00 Test Item Value Reference Range Interpretation Comments GLUC 1 HR (test code = 9731886536) 88 mg/dL 120-170 L Lab Interpretation (test code = Abnormal 58551-0) [facility] [id number] 18:24:00 Test Item Value Reference Range Interpretation Comments GLUC 1 HR (test code = 5204026044) 88 mg/dL 120-170 L Lab Interpretation (test code = Abnormal 93210-2) [facility] [id number] 17:30:00 Test Item Value Reference Range Interpretation Comments WBC (test code = See_Comment H [Automated 8790-2) message] The sy stem which generated this result transmitted reference range : 4.30 - 11.10 10*3/?L. The reference range was not used to interpret this result as normal/abnormal . RBC (test code = See_Comment L [Automated 789-8) message] The sy stem which generated this result transmitted reference range : 3.93 - 5.25 10*6/?L. The reference range was not used to interpret this result as normal/abnormal . HGB (test code = 10.4 g/dL 11.6-15 L 718-7) HCT (test code = 31.4 % 35.7-45.2 L 4544-3) MCV (test code = 80.9 fL 80.6-95.5 787-2) MCH (test code = 26.8 pg 25.9-32.8 785-6) MCHC (test code = 33.1 g/dL 31.6-35.1 786-4) RDW-SD (test code = 38.3 fL 39-49.9 L 26407-9) RDW-CV (test code = 13.1 % 12-15.5 788-0) PLT (test code = See_Comment [Automated 777-3) message] The sy stem which generated this result transmitted reference range : 166 - 358 10*3/ ?L. The reference r radha was not used to interpret this result as normal/abnormal . MPV (test code = 9.8 fL 9.5-12.9 55363-9) NRBC/100 WBC (test See_Comment [Automat ed code = 9966650172) message] The system which generated this result transmitted reference range : 0.0 - 10.0 /100 WBCs. The refer ence range was not u sed to interpret th is result as normal/abnormal . NRBC x10^3 (test code <0.01 See_Comment [Auto mated = 8512018620) message] The s ystem which generated this result transmitted reference range : 10*3/?L. The reference range was not used to interpret this result as normal/abnormal . GRAN MAT (NEUT) % 71.0 % (test code = 770-8) IMM GRAN % (test code 0.60 % = 7252333671) LYMPH % (test code = 22.1 % 736-9) MONO % (test code = 4.5 % 5905-5) EOS % (test code = 1.6 % 713-8) BASO % (test code = 0.2 % 706-2) GRAN MAT x10^3(ANC) 8.99 10*3/uL 1.88-7.09 H (test code = 2333869927) IMM GRAN x10^3 (test 0.08 10*3/uL 0-0.06 H code = 9087639947) LYMPH x10^3 (test code 2.80 10*3/uL 1.32-3.29 = 731-0) MONO x10^3 (test code 0.57 10*3/uL 0.33-0.92 = 742-7) EOS x10^3 (test code = 0.20 10*3/uL 0.03-0.39 711-2) BASO x10^3 (test code <0.03 0.01-0.07 = 704-7) Lab Interpretation Abnormal (test code = 19697-4) [facility] URINALYSIS W/O SPECIFIC [id number] 15:04:00 Test Item Value Reference Range Interpretation Comments POCT PH U (test code = 3254) n/a 5-8 POCT U LEUK EST (test code = 3263) n/a Negative - Negative POCT U NIT (test code = 3262) n/a Negative - Negative POCT U PROT (test code = 3259) neg Negative - Negative POCT U GLU (test code = 3256) neg Negative - Negative POCT U KETONE (test code = 3258) n/a Negative - Negative POCT U BLD (test code = 3257) n/a Negative - Negative Lab Interpretation (test code = Normal 17346-2) [facility] URINALYSIS W/O SPECIFIC [id number] 15:04:00 Test Item Value Reference Range Interpretation Comments POCT PH U (test code = 3254) n/a 5-8 POCT U LEUK EST (test code = 3263) n/a Negative - Negative POCT U NIT (test code = 3262) n/a Negative - Negative POCT U PROT (test code = 3259) neg Negative - Negative POCT U GLU (test code = 3256) neg Negative - Negative POCT U KETONE (test code = 3258) n/a Negative - Negative POCT U BLD (test code = 3257) n/a Negative - Negative Lab Interpretation (test code = Normal 12625-6) [facility] URINALYSIS W/O SPECIFIC [id number] 19:17:00 Test Item Value Reference Range Interpretation Comments POCT PH U (test code = 3254) 5 mg/dl 5-8 POCT U LEUK EST (test code = 1+ Negative - Negative 3263) POCT U NIT (test code = 3262) Neg Negative - Negative POCT U PROT (test code = 3259) Trace Negative - Negative POCT U GLU (test code = 3256) Neg Negative - Negative POCT U KETONE (test code = 3258) None Negative - Negative POCT U BLD (test code = 3257) . Negative - Negative [facility] URINALYSIS W/O SPECIFIC [id number] 19:17:00 Test Item Value Reference Range Interpretation Comments POCT PH U (test code = 3254) 5 mg/dl 5-8 POCT U LEUK EST (test code = 1+ Negative - Negative 3263) POCT U NIT (test code = 3262) Neg Negative - Negative POCT U PROT (test code = 3259) Trace Negative - Negative POCT U GLU (test code = 3256) Neg Negative - Negative POCT U KETONE (test code = 3258) None Negative - Negative POCT U BLD (test code = 3257) . Negative - Negative [facility]CIFIC [id number] 13:59:00 Test Item Value Reference Range Interpretation Comments POCT PH U (test code = 3254) NA 5-8 POCT U LEUK EST (test code = NA Negative - Negative 3263) POCT U NIT (test code = 3262) NA Negative - Negative POCT U PROT (test code = 3259) Negative Negative - Negative POCT U GLU (test code = 3256) Negative Negative - Negative POCT U KETONE (test code = 3258) NA Negative - Negative POCT U BLD (test code = 3257) NA Negative - Negative [facility] W/O SPECIFIC [id number] 13:59:00 Test Item Value Reference Range Interpretation Comments POCT PH U (test code = 3254) NA 5-8 POCT U LEUK EST (test code = NA Negative - Negative 3263) POCT U NIT (test code = 3262) NA Negative - Negative POCT U PROT (test code = 3259) Negative Negative - Negative POCT U GLU (test code = 3256) Negative Negative - Negative POCT U KETONE (test code = 3258) NA Negative - Negative POCT U BLD (test code = 3257) NA Negative - Negative [facility] W/O SPECIFIC [id number] 13:59:00 Test Item Value Reference Range Interpretation Comments POCT PH U (test code = 3254) NA 5-8 POCT U LEUK EST (test code = NA Negative - Negative 3263) POCT U NIT (test code = 3262) NA Negative - Negative POCT U PROT (test code = 3259) Negative Negative - Negative POCT U GLU (test code = 3256) Negative Negative - Negative POCT U KETONE (test code = 3258) NA Negative - Negative POCT U BLD (test code = 3257) NA Negative - Negative [facility] & CHLAMYDIA AMPLIFIED [id number] 19:36:00 Test Item Value Reference Range Interpretation Comments C. trachomatis Nucleic Acid (test Negative Negative code = 01452-3) N. gonorrhoeae Nucleic Acid (test Negative Negative code = 48847-9) Lab Interpretation (test code = Normal 77972-9) [facility] CHLAMYDIA AMPLIFIED [id number] 19:36:00 Test Item Value Reference Range Interpretation Comments C. trachomatis Nucleic Acid (test Negative Negative code = 23870-8) N. gonorrhoeae Nucleic Acid (test Negative Negative code = 68174-0) Lab Interpretation (test code = Normal 29859-3) [facility] CHLAMYDIA AMPLIFIED [id number] 19:36:00 Test Item Value Reference Range Interpretation Comments Lab Interpretation (test code = Normal 40641-4) [facility] [id number] 16:24:00 Test Item Value Reference Range Interpretation Comments URINE CULTURE (test < 10,000 CFU/mL mixed code = 630-4) aerobic organisms - suggests endogenous microbial contamination [facility] [id number] 16:24:00 Test Item Value Reference Range Interpretation Comments URINE CULTURE (test < 10,000 CFU/mL mixed code = 630-4) aerobic organisms - suggests endogenous microbial contamination [facility] [id number] 15:21:00 Test Item Value Reference Range Interpretation Comments Rubella screen IgG Positive Negative (test code = 8317471353) BONNIE (test code = BONNIE) Positive - Indicates the patient was exposed to Rubella through infection or vaccination.Negative - Indicates the patient could be susceptible to Rubella infection.Equivocal - A second specimen should be sent. [facility] ANTIBODY [id number] 15:21:00 Test Item Value Reference Range Interpretation Comments VZV IgG antibody Positive Negative (test code = 12526-3) BONNIE (test code = BONNIE) Positive - Indicates the patient was exposed to VZV through infection or vaccination.Negative - Indicates the patient could be susceptible to VZV infection.Equivocal - A second specimen should be sent for testing. [facility] HospitalRUBELLA SCREEN [id number] 15:21:00 Test Item Value Reference Range Interpretation Comments Rubella screen IgG Positive Negative (test code = 7318757439) BONNIE (test code = BONNIE) Positive - Indicates the patient was exposed to Rubella through infection or vaccination.Negative - Indicates the patient could be susceptible to Rubella infection.Equivocal - A second specimen should be sent. [facility] ANTIBODY [id number] 15:21:00 Test Item Value Reference Range Interpretation Comments VZV IgG antibody Positive Negative (test code = 45500-2) BONNIE (test code = BONNIE) Positive - Indicates the patient was exposed to VZV through infection or vaccination.Negative - Indicates the patient could be susceptible to VZV infection.Equivocal - A second specimen should be sent for testing. [facility] OR PAMELA ONLY - [id number] 04:24:00 Test Item Value Reference Range Interpretation Comments RPR (Qualitative) (test code = Nonreactive Nonreactive 50696-6) Lab Interpretation (test code = Normal 97435-3) [facility] OR [facility]ELA ONLY - [id number] 04:24:00 Test Item Value Reference Range Interpretation Comments RPR (Qualitative) (test code = Nonreactive Nonreactive 92561-4) Lab Interpretation (test code = Normal 47992-8) [facility] / [facility] - DRUG SCREEN [id number] 00:08:00 Test Item Value Reference Range Interpretation Comments BENZO U (test code = Negative Negative 8674838624) ELSIE U (test code = Negative Negative 7698624430) AMPHET (test code = Negative Negative 9460745238) THC (test code = Presumptive Negative A Confirmatio n of 6027609373) Positive Presumptive Positive THC result requires physician order . METHADONE (test code Negative Negative = 7081771475) Meth U (test code = Negative Negative 9259945931) OPIATES (test code = Negative Negative 5277293469) Cocaine Metabolite Negative Negative (test code = 1039174552) PROPOXY (test code = Negative Negative 4014476926) Tric U (test code = Negative Negative 3755108978) PCP (test code = Negative Negative 1696624423) OXYCOD (test code = Negative Negative 5795489138) BONNIE (test code = Urine Drug Cutoff BONNIE) RangesBenzodiazep yisel: ? ? 150 ng/mLBarbiturates : ?200 ng/mLAmphetamine: ? 500 ng/mLCannabinoids : ?50 ?ng/mLMethadone: ? 200 ng/mLMethamphetam ine: ? ? 500 ng/mL Opiates: ? 100 ng/mL or 2000 ng/mLCocaine: ? 150 ng/mLPropoxyphene : ?300 ng/mLTricyclics: ?300 ng/mLOxycodone: ? 100 ng/mLPCP: ? 25 ?ng/mLThe results are to be used only for medical (i.e., treatment) purposes. Unconfirmed screening results must not be used for non-medical purposes (e.g., employment testing, legal testing). Lab Interpretation Abnormal (test code = 52524-1) [facility] / [facility] - DRUG SCREEN [id number] 00:08:00 Test Item Value Reference Range Interpretation Comments BENZO U (test code = Negative Negative 5008647758) ELSIE U (test code = Negative Negative 7425076382) AMPHET (test code = Negative Negative 1691951345) THC (test code = Presumptive Negative A Confirmatio n of 4249013634) Positive Presumptive Positive THC result requires physician order . METHADONE (test code Negative Negative = 0120574543) Meth U (test code = Negative Negative 5929037891) OPIATES (test code = Negative Negative 1988773836) Cocaine Metabolite Negative Negative (test code = 7709529323) PROPOXY (test code = Negative Negative 7861838950) Tric U (test code = Negative Negative 8093534246) PCP (test code = Negative Negative 4273221486) OXYCOD (test code = Negative Negative 2740137999) BONNIE (test code = Urine Drug Cutoff BONNIE) RangesBenzodiazep yisel: ? ? 150 ng/mLBarbiturates : ?200 ng/mLAmphetamine: ? 500 ng/mLCannabinoids : ?50 ?ng/mLMethadone: ? 200 ng/mLMethamphetam ine: ? ? 500 ng/mL Opiates: ? 100 ng/mL or 2000 ng/mLCocaine: ? 150 ng/mLPropoxyphene : ?300 ng/mLTricyclics: ?300 ng/mLOxycodone: ? 100 ng/mLPCP: ? 25 ?ng/mLThe results are to be used only for medical (i.e., treatment) purposes. Unconfirmed screening results must not be used for non-medical purposes (e.g., employment testing, legal testing). Lab Interpretation Abnormal (test code = 79747-4) [facility] / [facility] - DRUG SCREEN [id number] 00:08:00 Test Item Value Reference Range Interpretation Comments BENZO U (test code = Negative Negative 3865848923) ELSIE U (test code = Negative Negative 3871870167) AMPHET (test code = Negative Negative 3574070191) THC (test code = Presumptive Negative A Confirmatio n of 2363964229) Positive Presumptive Positive THC result requires physician order . METHADONE (test code Negative Negative = 8381145007) Meth U (test code = Negative Negative 2377347086) OPIATES (test code = Negative Negative 0051386828) Cocaine Metabolite Negative Negative (test code = 8761629095) PROPOXY (test code = Negative Negative 8067153025) Tric U (test code = Negative Negative 2995851618) PCP (test code = Negative Negative 7445200597) OXYCOD (test code = Negative Negative 5505783140) BONNIE (test code = Urine Drug Cutoff BONNIE) RangesBenzodiazep yisel: ? ? 150 ng/mLBarbiturates : ?200 ng/mLAmphetamine: ? 500 ng/mLCannabinoids : ?50?ng/mLMethadon e: ? 200 ng/mLMethamphetam ine:?? 500 ng/mL Opiates: ? 100 ng/mL or 2000 ng/mLCocaine: ? 150 ng/mLPropoxyphene :?300 ng/mLTricyclics:? 300 ng/mLOxycodone:? 100 ng/mLPCP:? 25?ng/mLThe results are to be used only for medical (i.e., treatment) purposes. Unconfirmed screening results must not be used for non-medical purposes (e.g., employment testing, legal testing). Lab Interpretation Abnormal (test code = 06570-2) [facility] [id number] 21:26:00 Test Item Value Reference Range Interpretation Comments HCV Ab (test code = 50676-8) Negative HCV Semi-Quantitative (test code = 71451-1) [facility] [id number] 21:26:00 Test Item Value Reference Range Interpretation Comments HCV Ab (test code = 85448-5) Negative HCV Semi-Quantitative (test code = 06877-4) [facility]AT[facility] B SURFACE [id number] 21:08:00 Test Item Value Reference Range Interpretation Comments HBsAg Semi-Quantitative (test code = Negative Negative 5195-3) [facility] B SURFACE [id number] 21:08:00 Test Item Value Reference Range Interpretation Comments HBsAg Semi-Quantitative (test code = Negative Negative 5195-3) [facility] WORKUP, BLOOD [id number] 19:13:22 Test Item Value Reference Range Interpretation Comments ABO & RH (test code O Positive Performe d at [facility] = 20) [facility] [place], [place] [address]Toll Free: [phone] A No. [id number] IAT (test code = Negative Performed a t [facility] 1185) Laboratory [facility] Bank[address] [place], [place] [address]Toll Free: [phone] A No. [id number] [facility] WORKUP, BLOOD [id number] 19:13:22 Test Item Value Reference Range Interpretation Comments ABO & RH (test code O Positive Performe d at [facility] = 20) [facility] [place] [id number] Free: [phone] A No. [id number] IAT (test code = Negative Performed a t [facility] 1185) Laboratory [facility] [place] [id number] Free: [phone] A No. [id number] [facility], [facility] OR [facility] ONLY - HIV TYPE 1 AND 2 ANTIBODY SCREEN WITH [id number] 17:55:00 Test Item Value Reference Range Interpretation Comments HIV 1/2 AG/AB (test code = Nonreactive Nonreactive 46455-9) Lab Interpretation (test code = Normal 42115-2) [facility], [facility] OR [facility] ONLY - HIV TYPE 1 AND 2 ANTIBODY SCREEN WITH [id number] 17:55:00 Test Item Value Reference Range Interpretation Comments HIV 1/2 AG/AB (test code = Nonreactive Nonreactive 33056-4) Lab Interpretation (test code = Normal 04909-5) [facility] WITH [id number] 17:14:00 Test Item Value Reference Range Interpretation Comments WBC (test code = See_Comment [Automated 9590-2) message] The sy stem which generated this result transmitted reference range : 4.30 - 11.10 10*3/?L. The reference range was not used to interpret this result as normal/abnormal . RBC (test code = See_Comment [Automated 929-8) message] The sy stem which generated this result transmitted reference range : 3.93 - 5.25 10*6/?L. The reference range was not used to interpret this result as normal/abnormal . HGB (test code = 12.3 g/dL 11.6-15 718-7) HCT (test code = 39.2 % 35.7-45.2 4544-3) MCV (test code = 87.5 fL 80.6-95.5 787-2) MCH (test code = 27.5 pg 25.9-32.8 785-6) MCHC (test code = 31.4 g/dL 31.6-35.1 L 786-4) RDW-SD (test code = 44.4 fL 39-49.9 83624-5) RDW-CV (test code = 13.9 % 12-15.5 788-0) PLT (test code = See_Comment [Automated 777-3) message] The sy stem which generated this result transmitted reference range : 166 - 358 10*3/ ?L. The reference r radha was not used to interpret this result as normal/abnormal . MPV (test code = 10.9 fL 9.5-12.9 19361-5) NRBC/100 WBC (test See_Comment [Automat ed code = [id number]) message] The system which generated this result transmitted reference range : 0.0 - 10.0 /100 WBCs. The refer ence range was not u sed to interpret th is result as normal/abnormal . NRBC x10^3 (test code <0.01 See_Comment [Auto mated = [id number]) message] The s ystem which generated this result transmitted reference range : 10*3/?L. The reference range was not used to interpret this result as normal/abnormal . GRAN MAT (NEUT) % 54.6 % (test code = 770-8) IMM GRAN % (test code 0.40 % = [id number]) LYMPH % (test code = 37.7 % 736-9) MONO % (test code = 4.6 % 5905-5) EOS % (test code = 2.2 % 713-8) BASO % (test code = 0.5 % 706-2) GRAN MAT x10^3(ANC) 5.07 10*3/uL 1.88-7.09 (test code = [id number]) IMM GRAN x10^3 (test 0.04 10*3/uL 0-0.06 code = [id number]) LYMPH x10^3 (test code 3.51 10*3/uL 1.32-3.29 H = 731-0) MONO x10^3 (test code 0.43 10*3/uL 0.33-0.92 = 742-7) EOS x10^3 (test code = 0.20 10*3/uL 0.03-0.39 711-2) BASO x10^3 (test code 0.05 10*3/uL 0.01-0.07 = 704-7) Lab Interpretation Abnormal (test code = 27644-4) [facility] WITH [id number] 17:14:00 Test Item Value Reference Range Interpretation Comments WBC (test code = See_Comment [Automated 6690-2) message] The sy stem which generated this result transmitted reference range : 4.30 - 11.10 10*3/?L. The reference range was not used to interpret this result as normal/abnormal . RBC (test code = See_Comment [Automated 789-8) message] The sy stem which generated this result transmitted reference range : 3.93 - 5.25 10*6/?L. The reference range was not used to interpret this result as normal/abnormal . HGB (test code = 12.3 g/dL 11.6-15 718-7) HCT (test code = 39.2 % 35.7-45.2 4544-3) MCV (test code = 87.5 fL 80.6-95.5 787-2) MCH (test code = 27.5 pg 25.9-32.8 785-6) MCHC (test code = 31.4 g/dL 31.6-35.1 L 786-4) RDW-SD (test code = 44.4 fL 39-49.9 72282-0) RDW-CV (test code = 13.9 % 12-15.5 788-0) PLT (test code = See_Comment [Automated 777-3) message] The sy stem which generated this result transmitted reference range : 166 - 358 10*3/ ?L. The reference r radha was not used to interpret this result as normal/abnormal . MPV (test code = 10.9 fL 9.5-12.9 88853-1) NRBC/100 WBC (test See_Comment [Automat ed code = [id number]) message] The system which generated this result transmitted reference range : 0.0 - 10.0 /100 WBCs. The refer ence range was not u sed to interpret th is result as normal/abnormal . NRBC x10^3 (test code <0.01 See_Comment [Auto mated = [id number]) message] The s ystem which generated this result transmitted reference range : 10*3/?L. The reference range was not used to interpret this result as normal/abnormal . GRAN MAT (NEUT) % 54.6 % (test code = 770-8) IMM GRAN % (test code 0.40 % = [id number]) LYMPH % (test code = 37.7 % 736-9) MONO % (test code = 4.6 % 5905-5) EOS % (test code = 2.2 % 713-8) BASO % (test code = 0.5 % 706-2) GRAN MAT x10^3(ANC) 5.07 10*3/uL 1.88-7.09 (test code = [id number]) IMM GRAN x10^3 (test 0.04 10*3/uL 0-0.06 code = 9087805862) LYMPH x10^3 (test code 3.51 10*3/uL 1.32-3.29 H = 731-0) MONO x10^3 (test code 0.43 10*3/uL 0.33-0.92 = 742-7) EOS x10^3 (test code = 0.20 10*3/uL 0.03-0.39 711-2) BASO x10^3 (test code 0.05 10*3/uL 0.01-0.07 = 704-7) Lab Interpretation Abnormal (test code = 10492-0) [facility] [id number] 13:43:00 Test Item Value Reference Range Interpretation Comments POCT PREG (test code Positive = 1605) On board controls Yes acceptable with C Line (test code = 3574) POCT PREG LOT # (test code = 3575) POCT PREG TEST DATE (test code = 3576) BONNIE (test code = BONNIE) accurate development and interpretation of all internal controls [facility] [id number] 13:43:00 Test Item Value Reference Range Interpretation Comments POCT PREG (test code Positive = 1605) On board controls Yes acceptable with C Line (test code = 3574) POCT PREG LOT # (test code = 3575) POCT PREG TEST DATE (test code = 3576) BONNIE (test code = BONNIE) accurate development and interpretation of all internal controls [facility] [id number] 13:43:00 Test Item Value Reference Range Interpretation Comments POCT PREG (test code Positive = 1605) On board controls Yes acceptable with C Line (test code = 3574) POCT PREG LOT # (test code = 3575) POCT PREG TEST DATE (test code = 3576) BONNIE (test code = BONNIE) accurate development and interpretation of all internal controls [facility] 2018-12-29 13:05:49 Test Item Value Reference Range Interpretation Comments Consent To Contact For Voluntary Yes Research (test code = 4947) [facility] 2018-12-29 13:05:49 Test Item Value Reference Range Interpretation Comments Consent To Contact For Voluntary Yes Research (test code = 4947) [facility]"
== END 2021-03-09 15:13 | disposition left against medical advice (07) ==
LOC: ER 13:21
DX: Z53.21 Procedure and treatment not carried out due to patient leaving prior to being seen by health care provider (principal)
CPT/HCPCS: 99281

== ENCOUNTER 2022-07-21 10:29 | Emergency (ER) | payer OTHER ==
--- OUTSIDE RECORDS SUMMARY | 2022-07-21 10:39 | XMS REPORT | Continuity of Care Document ---
:1985 Author Organization [facility] t Address [address] [place] [address] Care Team Providers Name Role Phone Sujata Villagran Primary Care Physician SANTIAGO HARRIS Attending Clinician Unavailable King ALTAF MD, James C Attending Clinician SUJATA SANTIAGO Attending Clinician Unavailable Darien Bauman Attending Clinician Santiago Harris MD Attending Clinician VANITA LUCIANO Attending Clinician Unavailable VANITA LUCIANO Attending Clinician Unavailable Doctor Unassigned, [place] Attending Clinician Unavailable Unknown, Attending Attending Clinician Unavailable DONALD MENENDEZ III Attending Clinician Unavailable Sujata Villagran Attending Clinician ROSAURA ANNA Attending Clinician Unavailable JARROD DEMARCO Attending Clinician Unavailable Lab, Ang - Db Attending Clinician Unavailable VANITA EPPERSON Attending Clinician Unavailable Vanita Le Attending Clinician NATY BOWLES Attending Clinician Unavailable RUBIN ELIAS Attending Clinician Unavailable Lloyd Aldrich DO Attending Clinician LARA ANTUNEZ Attending Clinician Unavailable Lara Lehman Attending Clinician Rangel Perez MD Attending Clinician RANGEL PEREZ Attending Clinician Unavailable Don Butterfield MD Attending Clinician DON BUTTERFIELD Attending Clinician Unavailable ROSANNA ORTEGA Attending Clinician Unavailable MARKUS NAVARRO Attending Clinician Unavailable Leelee Wadsworth MD Attending Clinician LEELEE WADSWORTH Attending Clinician Unavailable 2, [facility] Attending Clinician Unavailable Kayli Wadsworth MD Attending Clinician Spike Lopes MD Attending Clinician Spike Wilkins MD Attending Clinician Gallo NGUYEN, Yasmany Barbour Attending Clinician José Luis Chapman DO Attending Clinician NILESH RAMÍREZ Attending Clinician Unavailable Prem Leonardo MD Attending Clinician Rosalina Warner Attending Clinician Unavailable Nilesh Ramírez MD Attending Clinician Melissa Hwang MD Attending Clinician Ron Campos MD, Scott Attending Clinician [phone] Pob, [facility] Lab Main Attending Clinician Unavailable Rubin Elias PA-C Attending Clinician Nurse, [facility] Attending Clinician Unavailable Faculty, Isaias Short [facility] Attending Clinician Unavailable Kayli Wadswotrh MD Admitting Clinician Payers Payer Name Policy Type Policy Number Effective Date Expiration Date [facility] [id number] 2017 CHOICE MEDICAID 00:00:00 Problems Condition Condition Condition Status Onset Resolution Last Treating Co mments Source Name Details Category Date Date Treatment Clinician Date History of History of Disease Active U nivers blurry blurry 8-12 ity of vision vision 00:00: [place] 00 Medical Branch Nonintract Nonintract Disease Active U nivers able able 8-12 ity of episodic episodic 00:00: [place] headache, headache, 00 Medi kyra unspecifie unspecifie Br anch d headache d headache type type Abnormal Abnormal Disease Active Unive rs thyroid thyroid 8-12 ity of exam exam 00:00: [place] 00 Medical Branch Syncope, Syncope, Disease Active Unive rs unspecifie unspecifie 8-12 it y of d syncope d [place] Acute Acute Disease Active 2020-05 Univers vaginitis vaginitis 0-14 ity of 00:00: [place] [facility] Dysmenorrh Dysmenorrh Disease Active 2020-05 U gisela ea ea 0-14 ity of 00:00: [place] 00 Medical Branch Encounter Encounter Disease Active 2020-05 Uni vers for for 0-14 ity of surveillan surveillan [place] ce of Medical vaginal vaginal Branch ring ring hormonal hormonal contracept contracept tino device tino device Folliculit Folliculit Disease Active 2020-05 U gisela is is 0-14 ity of 00:00: [place] 00 Medical Branch Normal Normal Disease Active 2020-05 Univers gynecologi gynecologi 0-14 it y of c c 00:00: [place] examinatio examinatio 00 Me dical n n Branch Pain in Pain in Disease Active 2020-05 Univers pelvis pelvis 0-14 ity of 00:00: [place] Medical Branch 39 weeks 39 weeks Disease Active Unive rs gestation gestation 4-20 ity of of of 00:00: [place] 00 [facility] Branch Low-lying Low-lying Disease Active Uni vers placenta placenta 4-20 ity of 00:00: [place] 00 Medical Branch Bipolar Bipolar Disease Active Univers disorder disorder 4-20 ity of 00:00: [place] 00 Medical Branch Obesity Obesity Disease Active Univers (BMI (BMI 8-29 ity of 30-39.9) 30-39.9) 00:00: [place] 00 Medical Branch Borderline Borderline Disease Active 2012-05 U gisela personalit personalit 2-01 it y of y disorder y disorder [place] adult 00 Medica l Branch Anxiety Anxiety Problem Active 2022-07-11 Me moria (finding) (finding) 14:03:53 l Active [place] Problem 07/11/2022 [facility] Attention Attention Problem Active 2022-07-11 [facility] deficit deficit 14:03:53 l hyperactiv hyperactiv He rmann ity ity disorder disorder (disorder) (disorder) Active Problem 07/11/2022 [facility] [place] [facility] Bronchopul Bronchopu Problem Active 2022-07-11 Memoria monary lmonary 14:03:53 l dysplasia dysplasia Herm antoinette of of (disorder) (disorder) Active Problem 07/11/2022 [facility] [place] [facility] Degenerati Degenerat Problem Active 2022-07-11 [facility] on of ion of 14:03:53 l lumbar lumbar [place] interverte interverte bral disc bral disc (disorder) (disorder) Active Problem 07/11/2022 [facility] [place] [facility] Household, Household Problem Active 2022-07-11 Memoria family and , family 14:03:53 l support 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 (finding) Active Problem 07/11/2022 [facility] [place] [facility] Hypothyroi Hypothyro Problem Active 2022-07-11 [facility] dism idism 14:03:53 l (disorder) (disorder) He rmann Active Problem 07/11/2022 [facility] Lumbar Lumbar Problem Active 2022-07-11 [facility] radiculopa radiculopa 14:03:53 l thy thy Timothy (disorder) (disorder) Active Problem 07/11/2022 [facility] [place] [facility] Sciatica Sciatica Problem Active 2022-07-11 Memoria (disorder) (disorder) 14:03:53 l Active [place] Problem 07/11/2022 [facility] [place] [facility] Acute Acute Problem Active Common vaginitis vaginitis Spir [facility] - [facility] Encounter Encounter Problem Active Com mon for for [facility] gynecologi gynecologi - [facility] examinatio examinatio Brianna kes n without n without Medi kyra abnormal abnormal Center finding finding Folliculit Folliculit Problem Active C ommon is is [facility] Encounter Encounter Problem Active [facility] surveillan surveillan - [facility] ce of ce of vaginal vaginal [facility] ring ring Medical hormonal hormonal Center contracept contracept tino device tino device Pelvic Pelvic Problem Active Common pain pain [facility] Painful Painful Problem Active Common menstrual menstrual Spir it periods periods - [facility] Allergies, Adverse Reactions, Alerts Allergy Allergy Status Severity Reaction(s) Onset Inactive Treating Comm ents Source Name Type Date Date Clinician NO KNOWN Drug Active Univers ALLERGIE Class ity of S [facility] Family History Family Member Diagnosis Comments Start Date Stop Date Source Natural brother Psychiatry Universit y [facility] Natural father Arthritis [facility] Natural father Depression [facility] Natural father Psychiatry [facility] Natural mother Depression [facility] Natural mother Diabetes [facility] Natural mother Psychiatry [facility] Natural mother Alcohol/Drug Universi ty of [facility] Family member Asthma [facility] Family member defects Universi ty [facility] Family member Breast Cancer Universi ty of [facility] Family member Cancer [facility] Family member Colon Cancer Universit y [facility] Family member Genetic [facility] Family member Heart [facility] Family member High cholesterol Unive rsity of [facility] Family member Hypertension Universit y [facility] Family member Mental retardation Uni versity [facility] Family member Neurological Universit y [facility] Family member Osteoporosis Universit y [facility] Family member Ovarian Cancer Univers ity [facility] Family member [facility] Social History Social Habit Start Date Stop Date Quantity Comments Source History of tobacco Cigarette Smoker University of use [facility] Exposure to 2022-06-14 2022-06-24 Not sure University of SARS-CoV-2 (event) 00:00:00 10:06:00 [facility] Alcohol intake 2022-06-24 2022-06-24 Ex-drinker University 00:00:00 00:00:00 (finding) [facility] Tobacco use and 2021-12-12 2021-12-12 Smokeless Universit y of exposure 00:00:00 00:00:00 tobacco non-user [facility] dicnh Branch Cigarettes smoked 2021-12-12 2021-12-12 Univers ity of current (pack per 00:00:00 00:00:00 ) - Reported Branch Cigarette 2021-12-12 2021-12-12 University of pack-years 00:00:00 00:00:00 [facility] Tobacco Comment 2021-12-12 2021-12-12 Last cigarette Unive rsity of 00:00:00 00:00:00 03/15/2019; [facility] vaping Belva Sex Ass[birth year] At [birth year] Universit y of 00:00:00 00:00:00 [facility] Smoking Status Start Date Stop Date Source Tobacco smoking status 2022-07-08 16:03:31 Memor ial [place] Medications Ordered Filled Start Stop Current Ordering Indication Dosage Frequency Signature Comments Components Source Medication Medication Date Date Medication? 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 Branch lisdexamfet 0 Yes [id number] 50mg Take 1 Univers amine 50 mg 3-07 capsule by it y of capsule 00:00: mouth [place] 00 every Medical morning. Branch desvenlafax 2022-0 Yes [id number] 100mg Take 1 Univers ine 2-22 tablet by ity of succinate 00:00: [place] 100 [place] 24 00 the Medical hr tablet morning. Branch clonazePAM 2022-0 Yes [id number] .5mg Take 1 U nivers 0.5 mg 2-22 tablet by ity of tablet 00:00: mouth once [place] 00 daily as Medical needed for Branch Other (Anxiety). ARIPiprazol 2022-0 Yes [id number] 15mg Take 1 Univers e (ABILIFY) 2-22 tablet by ity of 15 mg 00:00: mouth in [place] tablet 00 the Medical morning. Branch desvenlafax 2022-0 Yes [id number] 100mg Take 1 Univers ine 2-22 tablet by ity of succinate 00:00: [place] 100 mg 24 00 the Medical hr tablet morning. Branch clonazePAM 2022-0 Yes [id number] .5mg Take 1 U nivers 0.5 mg 2-22 tablet by ity of tablet 00:00: mouth once [place] 00 daily as Medical needed for Branch Other (Anxiety). ARIPiprazol 2022-0 Yes [id number] 15mg Take 1 Univers e (ABILIFY) 2-22 tablet by ity of 15 mg 00:00: mouth in [place] tablet 00 the Medical morning. Branch desvenlafax 2022-0 Yes [id number] 100mg Take 1 Univers ine 2-22 tablet by ity of succinate 00:00: [place] 100 mg 24 00 the Medical hr tablet morning. Branch clonazePAM 2022-0 Yes [id number] .5mg Take 1 U nivers 0.5 mg 2-22 tablet by ity of tablet 00:00: mouth once [place] 00 daily as Medical needed for Branch Other (Anxiety). ARIPiprazol 2022-0 Yes [id number] 15mg Take 1 Univers e (ABILIFY) 2-22 tablet by ity of 15 mg 00:00: mouth in [place] tablet 00 the Medical morning. Branch desvenlafax 2022-0 Yes [id number] 100mg Take 1 Univers ine 2-22 tablet by ity of succinate 00:00: [place] mg 24 00 the Medical hr tablet morning. Branch clonazePAM 3-0 Yes [id number] .5mg Take 1 U nivers 0.5 mg 2-22 tablet by ity of tablet 00:00: mouth once [place] 00 daily as Medical needed for Branch Other (Anxiety). ARIPiprazol 2022-0 Yes [id number] 15mg Take 1 Univers e (ABILIFY) 2-22 tablet by ity of 15 mg 00:00: mouth in [place] tablet 00 the Medical morning. Branch desvenlafax 2022-0 Yes [id number] 100mg Take 1 Univers ine 2-22 tablet by ity of succinate 00:00: [place] 100 [place] 24 00 the Medical hr tablet morning. Branch clonazePAM 3-0 Yes [id number] .5mg Take 1 U nivers 0.5 mg 2-22 tablet by ity of tablet 00:00: mouth once [place] 00 daily as Medical needed for Branch Other (Anxiety). ARIPiprazol Yes [id number] 15mg Take 1 Univers e (ABILIFY) 2-22 tablet by ity of 15 mg 00:00: mouth in [place] tablet 00 the Medical morning. Branch desvenlafax 2022-0 Yes [id number] 100mg Take 1 Univers ine 2-22 tablet by ity of succinate 00:00: mouth [facility] 24 00 the Medical hr tablet morning. Branch clonazePAM 2022- Yes [id number] .5mg Take 1 U nivers 0.5 mg 2-22 tablet by ity of tablet 00:00: mouth once [place] 00 daily as Medical needed for Branch Other (Anxiety). ARIPiprazol Yes [id number] 15mg Take 1 Univers e (ABILIFY) 2-22 tablet by ity of 15 mg 00:00: mouth in [place] tablet 00 the morning. 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, Weight METHOCARBAM Yes [id number] TAKE 1 Univers OL 500 mg 1-31 TABLET BY ity o f tablet 00:00: MOUTH IN [place] THE Medical MORNING Branch AND IN THE EVENING METHOCARBAM Yes [id number] TAKE 1 Univers OL 500 mg 1-31 TABLET BY ity o f tablet 00:00: MOUTH IN [place] THE Medical MORNING Branch AND IN THE EVENING METHOCARBAM 0 Yes [id number] TAKE 1 Univers OL 500 mg 1-31 TABLET BY ity o f tablet 00:00: MOUTH IN [place] THE Medical MORNING Branch AND IN THE EVENING METHOCARBAM Yes [id number] TAKE 1 Univers OL 500 mg 1-31 TABLET BY ity o f tablet 00:00: MOUTH IN [place] THE Medical MORNING Branch AND IN THE EVENING METHOCARBAM Yes [id number] TAKE 1 Univers OL 500 mg 1-31 TABLET BY ity o f tablet 00:00: MOUTH IN [place] 00 THE Medical MORNING Branch AND IN THE EVENING METHOCARBAM Yes [id number] TAKE 1 Univers OL 500 mg 1-31 TABLET BY ity o f tablet 00:00: MOUTH IN [place] 00 THE Medical MORNING Branch AND IN THE EVENING METHOCARBAM Yes [id number] TAKE 1 Univers OL 500 mg 1-31 TABLET BY ity o f tablet 00:00: MOUTH IN [place] 00 THE Medical MORNING Branch AND IN THE EVENING METHOCARBAM Yes [id number] TAKE 1 Univers OL 500 mg 1-31 TABLET BY ity o f tablet 00:00: MOUTH IN [place] 00 THE Medical MORNING Branch AND IN THE EVENING METHOCARBAM Yes [id number] TAKE 1 Univers OL 500 mg 1-31 TABLET BY ity o f tablet 00:00: MOUTH IN [place] 00 THE Medical MORNING Branch AND IN THE EVENING METHOCARBAM Yes [id number] TAKE 1 Univers OL 500 mg 1-31 TABLET BY ity o f tablet 00:00: MOUTH IN [place] 00 THE Medical MORNING Branch AND IN THE EVENING METHOCARBAM Yes [id number] TAKE 1 Univers OL 500 mg 1-31 TABLET BY ity o f tablet 00:00: MOUTH IN [place] 00 THE Medical MORNING Branch AND IN THE EVENING METHOCARBAM Yes [id number] TAKE 1 Univers OL 500 mg 1-31 TABLET BY ity o f tablet 00:00: MOUTH IN [place] 00 THE Medical MORNING Branch AND IN THE EVENING METHOCARBAM Yes [id number] TAKE 1 Univers OL 500 mg 1-31 TABLET BY ity o f tablet 00:00: MOUTH IN [place] 00 THE Medical MORNING Branch AND IN THE EVENING METHOCARBAM Yes [id number] TAKE 1 Univers OL 500 mg 1-31 TABLET BY ity o f tablet 00:00: MOUTH IN [place] 00 THE Medical MORNING Branch AND IN THE EVENING lisdexamfet Yes [id number] 50mg Take 1 Univers amine 50 mg 1-27 capsule by it y of capsule 00:00: mouth [place] 00 every Medical morning. Branch lisdexamfet 0 Yes [id number] 50mg Take 1 Univers amine 50 mg 1-27 capsule by it y of capsule 00:00: mouth [place] 00 every Medical morning. Branch lisdexamfet 3-0 Yes [id number] 50mg Take 1 Univers amine 50 mg 1-27 capsule by it y of capsule 00:00: mouth [place] 00 every Medical morning. Branch lisdexamfet 2022-0 Yes [id number] 50mg Take 1 Univers amine 50 mg 1-27 capsule by it y of capsule 00:00: mouth [place] 00 every Medical morning. Branch lisdexamfet 3-0 Yes [id number] 50mg Take 1 Univers amine 50 mg 1-27 capsule by it y of capsule 00:00: mouth [place] 00 every Medical morning. Branch lisdexamfet 3-0 Yes [id number] 50mg Take 1 Univers amine 50 mg 1-27 capsule by it y of capsule 00:00: mouth [place] 00 every Medical morning. Branch lisdexamfet 2022-0 Yes [id number] 50mg Take 1 Univers amine 50 mg 1-27 capsule by it y of capsule 00:00: mouth [place] 00 every Medical morning. Branch lisdexamfet 2022-0 Yes [id number] 50mg Take 1 Univers amine 50 mg 1-27 capsule by it y of capsule 00:00: mouth [place] 00 every Medical morning. Branch lisdexamfet 2022-0 Yes [id number] 50mg Take 1 Univers amine 50 mg 1-27 capsule by it y of capsule 00:00: mouth [place] 00 every Medical morning. Branch lisdexamfet 2022-0 Yes [id number] 50mg Take 1 Univers amine 50 mg 1-27 capsule by it y of capsule 00:00: mouth [place] 00 every Medical morning. Branch lisdexamfet 3-0 Yes [id number] 50mg Take 1 Univers amine 50 mg 1-27 capsule by it y of capsule 00:00: mouth [place] 00 every Medical morning. Branch lisdexamfet 3-0 Yes [id number] 50mg Take 1 Univers amine 50 mg 1-27 capsule by it y of capsule 00:00: mouth [place] 00 every Medical morning. Branch lisdexamfet 3-0 Yes [id number] 50mg Take 1 Univers amine 50 mg 1-27 capsule by it y of capsule 00:00: mouth [place] 00 every Medical morning. Branch lisdexamfet 3-0 2023- No [id number] 50mg Take 1 Univers amine 50 mg 1-27 -06 capsule by i ty of capsule 00:00: 00:00 mouth [place] 00 :00 every Medical morning. Branch methimazole 2022-0 Yes TAKE 2 Guilherme enma 10 mg oral 1-18 TABLETS BY l tablet 16:26: MOUTH [place] 00 EVERY MORNING propranolol 2022-0 Yes TAKE 1 Guilherme enma 40 mg oral 1-18 TABLET BY l tablet 16:26: MOUTH IN [place] 00 THE MORNING AND 1 TABLET IN THE EVENING. naproxen 2022-0 Yes TAKE 1 Memoria 500 mg oral 1-18 TABLET BY l tablet 16:25: MOUTH IN [place] 00 THE MORNING AND IN THE EVENING WITH MEALS methocarbam 2022-0 Yes TAKE 1 Guilherme enma ol 500 mg 1-18 TABLET BY l oral tablet 16:25: MOUTH IN [facility] 00 THE MORNING AND IN THE EVENING propranoloL 2022-0 Yes [id number] 40mg Take 1 Univers 40 mg 1-12 tablet by ity of tablet 00:00: mouth in [place] the Medical morning Branch and 1 tablet in the evening. methIMAzole 2022-0 Yes [id number] 20mg Take 2 Univers 10 mg 1-12 tablets by ity of tablet 00:00: mouth in [place] 00 the Medical morning. Branch propranoloL 3-0 Yes [id number] 40mg Take 1 Univers 40 mg 1-12 tablet by ity of tablet 00:00: mouth in [place] the Medical morning Branch and 1 tablet in the evening. methIMAzole 3-0 Yes [id number] 20mg Take 2 Univers 10 mg 1-12 tablets by ity of tablet 00:00: mouth in [place] 00 the Medical morning. Branch propranoloL 3-0 Yes [id number] 40mg Take 1 Univers 40 mg 1-12 tablet by ity of tablet 00:00: mouth in [place] the Medical morning Branch and 1 tablet in the evening. methIMAzole 2023-0 Yes [id number] 20mg Take 2 Univers 10 mg 1-12 tablets by ity of tablet 00:00: mouth in [place] 00 the Medical morning. Branch propranoloL 3-0 Yes [id number] 40mg Take 1 Univers 40 mg 1-12 tablet by ity of tablet 00:00: mouth in [place] the Medical morning Branch and 1 tablet in the evening. methIMAzole 2023-0 Yes [id number] 20mg Take 2 Univers 10 mg 1-12 tablets by ity of tablet 00:00: mouth in [place] the Medical morning. Branch propranoloL 2023-0 Yes [id number] 40mg Take 1 Univers 40 mg 1-12 tablet by ity of tablet 00:00: mouth in [place] the Medical morning Branch and 1 tablet in the evening. methIMAzole 2023-0 Yes [id number] 20mg Take 2 Univers 10 mg 1-12 tablets by ity of tablet 00:00: mouth in [place] the Medical morning. Branch propranoloL 2023-0 Yes [id number] 40mg Take 1 Univers 40 mg 1-12 tablet by ity of tablet 00:00: mouth in [place] the Medical morning Branch and 1 tablet in the evening. methIMAzole 2023-0 Yes [id number] 20mg Take 2 Univers 10 mg 1-12 tablets by ity of tablet 00:00: mouth in [place] the Medical morning. Branch propranoloL 2023-0 Yes [id number] 40mg Take 1 Univers 40 mg 1-12 tablet by ity of tablet 00:00: mouth in [place] the Medical morning Branch and 1 tablet in the evening. methIMAzole 2023-0 Yes [id number] 20mg Take 2 Univers 10 mg 1-12 tablets by ity of tablet 00:00: mouth in [place] the Medical morning. Branch propranoloL 2023-0 Yes [id number] 40mg Take 1 Univers 40 mg 1-12 tablet by ity of tablet 00:00: mouth in [place] the Medical morning Branch and 1 tablet in the evening. methIMAzole 2023-0 Yes [id number] 20mg Take 2 Univers 10 mg 1-12 tablets by ity of tablet 00:00: mouth in [place] the Medical morning. Branch propranoloL 2023-0 Yes [id number] 40mg Take 1 Univers 40 mg 1-12 tablet by ity of tablet 00:00: mouth in [place] the Medical morning Branch and 1 tablet in the evening. methIMAzole 2023-0 Yes [id number] 20mg Take 2 Univers 10 mg 1-12 tablets by ity of tablet 00:00: mouth in [place] 00 the Medical morning. Branch propranoloL 2023-0 Yes [id number] 40mg Take 1 Univers 40 mg 1-12 tablet by ity of tablet 00:00: mouth in [place] the Medical morning Branch and 1 tablet in the evening. methIMAzole 2023-0 Yes [id number] 20mg Take 2 Univers 10 mg 1-12 tablets by ity of tablet 00:00: mouth in [place] the Medical morning. Branch propranoloL 2023-0 Yes [id number] 40mg Take 1 Univers 40 mg 1-12 tablet by ity of tablet 00:00: mouth in [place] the Medical morning Branch and 1 tablet in the evening. methIMAzole 2023-0 Yes [id number] 20mg Take 2 Univers 10 mg 1-12 tablets by ity of tablet 00:00: mouth in [place] the Medical morning. Branch propranoloL 2023-0 Yes [id number] 40mg Take 1 Univers 40 mg 1-12 tablet by ity of tablet 00:00: mouth in [place] the Medical morning Branch and 1 tablet in the evening. methIMAzole 2023-0 Yes [id number] 20mg Take 2 Univers 10 mg 1-12 tablets by ity of tablet 00:00: mouth in [place] the Medical morning. Branch propranoloL 2023-0 Yes [id number] 40mg Take 1 Univers 40 mg 1-12 tablet by ity of tablet 00:00: mouth in [place] the Medical morning Branch and 1 tablet in the evening. methIMAzole 2023-0 Yes [id number] 20mg Take 2 Univers 10 mg 1-12 tablets by ity of tablet 00:00: mouth in [place] the morning. Branch propranoloL 2023-0 Yes [id number] 40mg Take 1 Univers 40 mg 1-12 tablet by ity of tablet 00:00: mouth in [place] the Medical morning Branch and 1 tablet in the evening. methIMAzole 2023-0 Yes [id number] 20mg Take 2 Univers 10 mg 1-12 tablets by ity of tablet 00:00: mouth in [place] the Medical morning. Branch propranoloL 2023-0 Yes [id number] 40mg Take 1 Univers 40 mg 1-12 tablet by ity of tablet 00:00: mouth in [place] the Medical morning Branch and 1 tablet in the evening. methIMAzole 2023-0 Yes [id number] 20mg Take 2 Univers 10 mg 1-12 tablets by ity of tablet 00:00: mouth in [place] the Medical morning. Branch propranoloL 2023-0 Yes [id number] 40mg Take 1 Univers 40 mg 1-12 tablet by ity of tablet 00:00: mouth in [place] [address] the [facility] and 1 tablet in the evening. methIMAzole 2023-0 Yes [id number] 20mg Take 2 [facility] 10 mg 1-12 tablets by [facility] of tablet 00:00: mouth in [address] morning. Branch propranoloL 2023-0 Yes [id number] 40mg Take 1 [facility] 40 mg 1-12 tablet by [facility] of tablet 00:00: mouth in [address] and 1 tablet in the evening. methIMAzole 2023-0 Yes [id number] 20mg Take 2 [facility] 10 mg 1-12 tablets by it[facility] of tablet 00:00: mouth in [address] morning. Branch naproxen 3-0 Yes [id number] 500mg Take 1 [facility] 500 mg 1-06 tablet by it[facility] of tablet 00:00: mouth in [address] and 1 tablet in the evening. Take with meals. methocarbam 2023-0 Yes [id number] 500mg Take 1 [facility] oL 500 mg 1-06 tablet by ity o f tablet 00:00: mouth in [address] and 1 tablet in the evening. naproxen 2023-0 Yes [id number] 500mg Take 1 [facility] 500 mg 1-06 tablet by it[facility] of tablet 00:00: mouth in [address] and 1 tablet in the evening. Take with meals. methocarbam 2023-0 Yes [id number] 500mg Take 1 [facility] oL 500 mg 1-06 tablet by ity o f tablet 00:00: mouth in [address] and 1 tablet in the evening. naproxen 2023-0 Yes [id number] 500mg Take 1 [facility] 500 mg 1-06 tablet by ity of tablet 00:00: mouth in [address] and 1 tablet in the evening. Take with meals. methocarbam 2023-0 Yes [id number] 500mg Take 1 [facility] oL 500 mg 1-06 tablet by ity o f tablet 00:00: mouth in [address] and 1 tablet in the evening. naproxen 2023-0 Yes [id number] 500mg Take 1 [facility] 500 mg 1-06 tablet by ity of tablet 00:00: mouth in [address] and 1 tablet in the evening. Take with meals. methocarbam 2023-0 Yes [id number] 500mg Take 1 [facility] oL 500 mg 1-06 tablet by ity o f tablet 00:00: mouth in [place] [address] the [facility] morning [place] and 1 tablet in the evening. naproxen 2023-0 Yes [id number] 500mg Take 1 [facility] nivers 500 mg 1-06 tablet by ity of tablet 00:00: mouth in [place] [address] the [facility] morning [place] and 1 tablet in the evening. Take with meals. methocarbam 2023-0 Yes [id number] 500mg Take 1 [facility] oL 500 mg 1-06 tablet by ity o f tablet 00:00: mouth in [place] [address] the [facility] morning [place] and 1 tablet in the evening. naproxen 2023-0 Yes [id number] 500mg Take 1 [facility] nivers 500 mg 1-06 tablet by ity of tablet 00:00: mouth in [place] [address] the [facility] morning [place] and 1 tablet in the evening. Take with meals. naproxen 2023-0 Yes [id number] 500mg Take 1 [facility] n[facility] 500 mg 1-06 tablet by ity of tablet 00:00: mouth in [address] morning [place] and 1 tablet in the evening. Take with meals. naproxen 2023-0 Yes [id number] 500mg Take 1 [facility] n[facility] 500 mg 1-06 tablet by ity of tablet 00:00: mouth in [address] morning [place] and 1 tablet in the evening. Take with meals. naproxen 2023-0 Yes [id number] 500mg Take 1 [facility] n[facility] 500 mg 1-06 tablet by ity of tablet 00:00: mouth in [address] morning [place] and 1 tablet in the evening. Take with meals. naproxen 2023-0 Yes [id number] 500mg Take 1 [facility] n[facility] 500 mg 1-06 tablet by ity of tablet 00:00: mouth in [address] morning [place] and 1 tablet in the evening. Take with meals. naproxen 2023-0 Yes [id number] 500mg Take 1 [facility] n[facility] 500 mg 1-06 tablet by ity of tablet 00:00: mouth in [address] morning [place] and 1 tablet in the evening. Take with meals. naproxen 2023-0 Yes [id number] 500mg Take 1 [facility] n[facility] 500 mg 1-06 tablet by ity of tablet 00:00: mouth in [place] [address] the Medical morning [place] and 1 tablet in the evening. Take with meals. naproxen 2023-0 Yes [id number] 500mg Take 1 [facility] nivers 500 mg 1-06 tablet by ity of tablet 00:00: mouth in [place] [address] the Medical morning Branch and 1 tablet in the evening. Take with meals. naproxen 2023-0 Yes [id number] 500mg Take 1 [facility] nivers 500 mg 1-06 tablet by ity of tablet 00:00: mouth in [place] [address] the Medical morning [place] and 1 tablet in the evening. Take with meals. naproxen 2023-0 Yes [id number] 500mg Take 1 [facility] nivers 500 mg 1-06 tablet by ity of tablet 00:00: mouth in [place] [address] the [facility] morning [place] and 1 tablet in the evening. Take with meals. naproxen 2023-0 Yes [id number] 500mg Take 1 [facility] nivers 500 mg 1-06 tablet by ity of tablet 00:00: mouth in [address] morning [place] and 1 tablet in the evening. Take with meals. naproxen 2023-0 Yes [id number] 500mg Take 1 [facility] n[facility] 500 mg 1-06 tablet by ity of tablet 00:00: mouth in [address] morning [place] and 1 tablet in the evening. Take with meals. naproxen 2023-0 Yes [id number] 500mg Take 1 [facility] nivers 500 mg 1-06 tablet by ity of tablet 00:00: mouth in [place] [address] the [facility] morning [place] and 1 tablet in the evening. Take with meals. naproxen 2023-0 Yes [id number] 500mg Take 1 [facility] nivers 500 mg 1-06 tablet by ity of tablet 00:00: mouth in [address] morning [place] and 1 tablet in the evening. Take with meals. methocarbam 2023-0 2023- No [id number] 500mg Take 1 [facility] oL 500 mg 05-08 tablet by ity of tablet 00:00: 00:00 mouth in [place] 00 :00 [facility] and 1 tablet in the evening. methocarbam 2023-0 2023- No [id number] 500mg Take 1 [facility] oL 500 mg 05-08 tablet by ity of tablet 00:00: 00:00 mouth in [place] 00 :00 the Medical morning Branch and 1 tablet in the evening. methocarbam 2022- No [id number] 500mg Take 1 [facility] oL 500 mg 05-08 tablet by ity of tablet 00:00: 00:00 mouth in [place] 00 :00 the Medical morning Branch and 1 tablet in the evening. methocarbam 0 2022- No [id number] 500mg Take 1 [facility] oL 500 mg 05-08 tablet by ity of tablet 00:00: 00:00 mouth in [place] 00 :00 the Medical morning Branch and 1 tablet in the evening. methocarbam 2022- No [id number] 500mg Take 1 [facility] oL 500 mg 05-08 tablet by ity of tablet 00:00: 00:00 mouth in [place] 00 :00 the Medical morning Branch and 1 tablet in the evening. lisdexamfet 2021-05 Yes [id number] 50mg Take 1 [facility] amine 50 mg 2-28 capsule by it y of capsule 00:00: mouth [place] 00 every Medical morning. Branch lisdexamfet 2021-05 Yes [id number] 50mg Take 1 [facility] amine 50 mg 2-28 capsule by it y of capsule 00:00: mouth [place] 00 every Medical morning. Branch lisdexamfet 2021-05 Yes [id number] 50mg Take 1 [facility] amine 50 mg 2-28 capsule by it y of capsule 00:00: mouth [place] 00 every Medical morning. Branch lisdexamfet 2021-05 Yes [id number] 50mg Take 1 [facility] amine 50 mg 2-28 capsule by it y of capsule 00:00: mouth [place] 00 every Medical morning. Branch lisdexamfet 2021-05 Yes [id number] 50mg Take 1 [facility] amine 50 mg 2-28 capsule by it y of capsule 00:00: mouth [place] 00 every Medical morning. Branch lisdexamfet 2021-05- No [id number] 50mg Take 1 [facility] amine 50 mg 2-28 01-27 capsule by i ty of capsule 00:00: 00:00 mouth [place] 00 :00 every Medical morning. Branch lisdexamfet 2021-05- No [id number] 50mg Take 1 [facility] amine 50 mg 2-28 -27 capsule by i ty of capsule 00:00: 00:00 mouth [place] 00 :00 every Medical morning. Branch lisdexamfet 2021-05- No [id number] 50mg Take 1 [facility] amine 50 mg 2-28 - capsule by i ty of capsule 00:00: 00:00 mouth [place] 00 :00 every Medical morning. Branch lisdexamfet 2021-05- No [id number] 50mg Take 1 [facility] amine 50 mg 2-28 - capsule by i ty of capsule 00:00: 00:00 mouth [place] 00 :00 every Medical morning. Branch lisdexamfet 2021-05- No [id number] 50mg Take 1 [facility] amine 50 mg 2-28 05-29 capsule by i ty of capsule 00:00: 00:00 mouth [place] 00 :00 every Medical morning. Branch dextroamphe 2021-05 Yes [id number] 15mg Take 1 [facility] tamine-amph 2-23 tablet by ity of etamine 15 00:00: mouth in [place] mg tablet 00 the Medical morning Branch and 1 tablet at noon and 1 tablet in the evening. dextroamphe 2021-05 Yes [id number] 15mg Take 1 [facility] tamine-amph 2-23 tablet by ity of etamine 15 00:00: mouth in [place] mg tablet 00 the Medical morning Branch and 1 tablet at noon and 1 tablet in the evening. dextroamphe 2021-05- No [id number] 15mg Take 1 [facility] tamine-amph 2-23 12-28 tablet by it y of etamine 15 00:00: 00:00 mouth in [place] mg tablet 00 :00 the Medical morning Branch and 1 tablet at noon and 1 tablet in the evening. dextroamphe 2021-05- No [id number] 15mg Take 1 [facility] tamine-amph 2-23 12-28 tablet by it y of etamine 15 00:00: 00:00 mouth in [place] mg tablet 00 :00 the Medical morning Branch and 1 tablet at noon and 1 tablet in the evening. dextroamphe 2021-05- No [id number] 15mg Take 1 [facility] tamine-amph 2-23 12-28 tablet by it y of etamine 15 00:00: 00:00 mouth in [place] mg tablet 00 :00 the Medical morning Branch and 1 tablet at noon and 1 tablet in the evening. dextroamphe 2021-05 Yes [id number] 15mg Take 1 [facility] tamine-amph 2-22 tablet by ity of etamine 15 00:00: mouth in [place] mg tablet 00 the Medical morning Branch and 1 tablet at noon and 1 tablet in the evening. dextroamphe 2021-05 Yes [id number] 15mg Take 1 [facility] tamine-amph 2-22 tablet by ity of etamine 15 00:00: mouth in [place] mg tablet 00 the Medical morning Branch and 1 tablet at noon and 1 tablet in the evening. dextroamphe 2021-05 Yes [id number] 15mg Take 1 [facility] tamine-amph 2-22 tablet by ity of etamine 15 00:00: mouth in [place] mg tablet 00 the Medical morning Branch and 1 tablet at noon and 1 tablet in the evening. dextroamphe 2021-05 Yes [id number] 15mg Take 1 [facility] tamine-amph 2-22 tablet by ity of etamine 15 00:00: mouth in [place] mg tablet 00 the Medical morning Branch and 1 tablet at noon and 1 tablet in the evening. dextroamphe 2021-05 Yes [id number] 15mg Take 1 [facility] tamine-amph 2-22 tablet by ity of etamine 15 00:00: mouth in [place] mg tablet 00 the Medical morning Branch and 1 tablet at noon and 1 tablet in the evening. dextroamphe 2021-05- No [id number] 15mg Take 1 [facility] tamine-amph 2-22 12-23 tablet by it y of etamine 15 00:00: 00:00 mouth in [place] mg tablet 00 :00 the Medical morning Branch and 1 tablet at noon and 1 tablet in the evening. dextroamphe 2021-05- No [id number] 15mg Take 1 [facility] tamine-amph 2-22 12-23 tablet by it y of etamine 15 00:00: 00:00 mouth in [place] mg tablet 00 :00 the Medical morning Branch and 1 tablet at noon and 1 tablet in the evening. dextroamphe 2021-05- No [id number] 15mg Take 1 [facility] tamine-amph 2-22 12-23 tablet by it y of etamine 15 00:00: 00:00 mouth in [place] mg tablet 00 :00 the Medical morning Branch and 1 tablet at noon and 1 tablet in the evening. dextroamphe 2021-05- No [id number] 15mg Take 1 [facility] tamine-amph 2-22 12-23 tablet by it y of etamine 15 00:00: 00:00 mouth in [place] mg tablet 00 :00 the Medical morning Branch and 1 tablet at noon and 1 tablet in the evening. dextroamphe 2021-05- No [id number] 15mg Take 1 [facility] tamine-amph 2-22 12-23 tablet by it y of etamine 15 00:00: 00:00 mouth in [place] mg tablet 00 :00 the Medical morning Branch and 1 tablet at noon and 1 tablet in the evening. dextroamphe 2021-05- No [id number] 15mg Take 1 [facility] tamine-amph 2-22 12-22 tablet by it y of etamine 15 00:00: 00:00 mouth in [place] mg tablet 00 :00 the Medical morning Branch and 1 tablet at noon and 1 tablet in the evening. dextroamphe 2021-05- No [id number] 15mg Take 1 [facility] tamine-amph 2-22 12-22 tablet by it y of etamine 15 00:00: 00:00 mouth in [place] mg tablet 00 :00 the Medical morning Branch and 1 tablet at noon and 1 tablet in the evening. dextroamphe 2021-05- No [id number] 15mg Take 1 [facility] tamine-amph 2-22 12-22 tablet by it y of etamine 15 00:00: 00:00 mouth in [place] mg tablet 00 :00 the Medical morning Branch and 1 tablet at noon and 1 tablet in the evening. dextroamphe 2021-05- No [id number] 15mg Take 1 [facility] tamine-amph 2-22 12-22 tablet by it y of etamine 15 00:00: 00:00 mouth in [place] mg tablet 00 :00 the Medical morning Branch and 1 tablet at noon and 1 tablet in the evening. dextroamphe 2021-05- No [id number] 15mg Take 1 [facility] tamine-amph 2-22 12-22 tablet by it y of etamine 15 00:00: 00:00 mouth in [place] mg tablet 00 :00 the Medical morning Branch and 1 tablet at noon and 1 tablet in the evening. dextroamphe 2021-05- No [id number] 15mg Take 1 [facility] tamine-amph 2-22 12-22 tablet by it y of etamine 15 00:00: 00:00 mouth in [place] mg tablet 00 :00 the Medical morning Branch and 1 tablet at noon and 1 tablet in the evening. dextroamphe 2021-05- No [id number] 15mg Take 1 [facility] tamine-amph 2-22 12-22 tablet by it y of etamine 15 00:00: 00:00 mouth in [place] mg tablet 00 :00 the Medical morning Branch and 1 tablet at noon and 1 tablet in the evening. dextroamphe 2021-05- No [id number] 15mg Take 1 [facility] tamine-amph 2-22 12-22 tablet by it y of etamine 15 00:00: 00:00 mouth in [place] mg tablet 00 :00 the Medical morning Branch and 1 tablet at noon and 1 tablet in the evening. dextroamphe 2021-05- No [id number] 15mg Take 1 [facility] tamine-amph 2-22 12-22 tablet by it y of etamine 15 00:00: 00:00 mouth in [place] mg tablet 00 :00 the Medical morning Branch and 1 tablet at noon and 1 tablet in the evening. dextroamphe 2021-05 Yes [id number] 15mg Take 1 [facility] tamine-amph 2-19 tablet by ity of etamine 15 00:00: mouth in [place] mg tablet 00 the Medical morning Branch and 1 tablet at noon and 1 tablet in the evening. dextroamphe 2021-05- No [id number] 15mg Take 1 [facility] tamine-amph 2-19 12-22 tablet by it y of etamine 15 00:00: 00:00 mouth in [place] mg tablet 00 :00 the Medical morning Branch and 1 tablet at noon and 1 tablet in the evening. dextroamphe 2021-05- No [id number] 15mg Take 1 [facility] tamine-amph 2-19 12-22 tablet by it y of etamine 15 00:00: 00:00 mouth in [place] mg tablet 00 :00 the Medical morning Branch and 1 tablet at noon and 1 tablet in the evening. dextroamphe 2021-05- No [id number] 15mg Take 1 [facility] tamine-amph 2-19 12-22 tablet by it y of etamine 15 00:00: 00:00 mouth in [place] mg tablet 00 :00 the Medical morning Branch and 1 tablet at noon and 1 tablet in the evening. dextroamphe 2021-05- No [id number] 15mg Take 1 [facility] tamine-amph 2-19 12-22 tablet by it y of etamine 15 00:00: 00:00 mouth in [place] mg tablet 00 :00 the Medical morning Branch and 1 tablet at noon and 1 tablet in the evening. dextroamphe 2021-05- No [id number] 15mg Take 1 [facility] tamine-amph 2-19 12-22 tablet by it y of etamine 15 00:00: 00:00 mouth in [place] mg tablet 00 :00 the Medical morning Branch and 1 tablet at noon and 1 tablet in the evening. dextroamphe 2021-05- No [id number] 15mg Take 1 [facility] tamine-amph 2-19 12-22 tablet by it y of etamine 15 00:00: 00:00 mouth in [place] mg tablet 00 :00 the Medical morning Branch and 1 tablet at noon and 1 tablet in the evening. dextroamphe 2021-05- No [id number] 15mg Take 1 [facility] tamine-amph 2-19 12-22 tablet by it y of etamine 15 00:00: 00:00 mouth in [place] mg tablet 00 :00 the Medical morning Branch and 1 tablet at noon and 1 tablet in the evening. dextroamphe 2021-05- No [id number] 15mg Take 1 [facility] tamine-amph 2-19 12-22 tablet by it y of etamine 15 00:00: 00:00 mouth in [place] mg tablet 00 :00 the Medical morning Branch and 1 tablet at noon and 1 tablet in the evening. dextroamphe 2021-05- No [id number] 15mg Take 1 [facility] tamine-amph 2-19 12-22 tablet by it y of etamine 15 00:00: 00:00 mouth in [place] mg tablet 00 :00 the Medical morning Branch and 1 tablet at noon and 1 tablet in the evening. dextroamphe 2021-05- No [id number] 15mg Take 1 [facility] tamine-amph 2-19 12-22 tablet by it y of etamine 15 00:00: 00:00 mouth in [place] mg tablet 00 :00 the Medical morning Branch and 1 tablet at noon and 1 tablet in the evening. desvenlafax 2021-05 Yes [id number] 100mg Take 1 [facility] ine 2-05 tablet by ity of succinate 00:00: mouth in [place] 100 mg 24 00 the Medical hr tablet morning. Branch clonazePAM 2021-05 Yes [id number] .5mg Take 1 U nivers 0.5 mg 2-05 tablet by ity of tablet 00:00: mouth once [place] 00 daily as Medical needed for Branch Other (Anxiety). desvenlafax 2021-05 Yes [id number] 100mg Take 1 [facility] ine 2-05 tablet by ity of succinate 00:00: mouth in [place] 100 mg 24 00 the Medical hr tablet morning. Branch clonazePAM 2021-05 Yes [id number] .5mg Take 1 U nivers 0.5 mg 2-05 tablet by ity of tablet 00:00: mouth once [place] 00 daily as Medical needed for Branch Other (Anxiety). desvenlafax 2021-05 Yes [id number] 100mg Take 1 [facility] ine 2-05 tablet by ity of succinate 00:00: mouth in [place] 100 mg 24 00 the Medical hr tablet morning. Branch clonazePAM 2021-05 Yes [id number] .5mg Take 1 U nivers 0.5 mg 2-05 tablet by ity of tablet 00:00: mouth once [place] 00 daily as Medical needed for Branch Other (Anxiety). desvenlafax 2021-05 Yes [id number] 100mg Take 1 [facility] ine 2-05 tablet by ity of succinate 00:00: mouth in [place] 100 mg 24 00 the Medical hr tablet morning. Branch clonazePAM 2021-05 Yes [id number] .5mg Take 1 U nivers 0.5 mg 2-05 tablet by ity of tablet 00:00: mouth once [place] 00 daily as Medical needed for Branch Other (Anxiety). desvenlafax 2021-05 Yes [id number] 100mg Take 1 [facility] ine 2-05 tablet by ity of succinate 00:00: mouth in [place] 100 mg 24 00 the Medical hr tablet morning. Branch clonazePAM 2021-05 Yes [id number] .5mg Take 1 U nivers 0.5 mg 2-05 tablet by ity of tablet 00:00: mouth once [place] 00 daily as Medical needed for Branch Other (Anxiety). desvenlafax 2021-05 Yes [id number] 100mg Take 1 [facility] ine 2-05 tablet by ity of succinate 00:00: mouth in [place] 100 mg 24 00 the Medical hr tablet morning. Branch clonazePAM 2021-05 Yes [id number] .5mg Take 1 U nivers 0.5 mg 2-05 tablet by ity of tablet 00:00: mouth once [place] 00 daily as Medical needed for Branch Other (Anxiety). desvenlafax 2021-05 Yes [id number] 100mg Take 1 [facility] ine 2-05 tablet by ity of succinate 00:00: mouth in [place] 100 mg 24 00 the Medical hr tablet morning. Branch clonazePAM 2021-05 Yes [id number] .5mg Take 1 U nivers 0.5 mg 2-05 tablet by ity of tablet 00:00: mouth once [place] 00 daily as Medical needed for Branch Other (Anxiety). desvenlafax 2021-05 Yes [id number] 100mg Take 1 [facility] ine 2-05 tablet by ity of succinate 00:00: mouth in [place] 100 mg 24 00 the Medical hr tablet morning. Branch clonazePAM 2021-05 Yes [id number] .5mg Take 1 U nivers 0.5 mg 2-05 tablet by ity of tablet 00:00: mouth once [place] 00 daily as Medical needed for Branch Other (Anxiety). desvenlafax 2021-05 Yes [id number] 100mg Take 1 [facility] ine 2-05 tablet by ity of succinate 00:00: mouth in [place] 100 mg 24 00 the Medical hr tablet morning. Branch clonazePAM 2021-05 Yes [id number] .5mg Take 1 U nivers 0.5 mg 2-05 tablet by ity of tablet 00:00: mouth once [place] 00 daily as Medical needed for Branch Other (Anxiety). desvenlafax 2021-05 Yes [id number] 100mg Take 1 [facility] ine 2-05 tablet by ity of succinate 00:00: mouth in [place] 100 mg 24 00 the Medical hr tablet morning. Branch clonazePAM 2021-05 Yes [id number] .5mg Take 1 U nivers 0.5 mg 2-05 tablet by ity of tablet 00:00: mouth once [place] 00 daily as Medical needed for Branch Other (Anxiety). desvenlafax 2021-05 Yes [id number] 100mg Take 1 [facility] ine 2-05 tablet by ity of succinate 00:00: mouth in [place] 100 mg 24 00 the Medical hr tablet morning. Branch clonazePAM 2021-05 Yes [id number] .5mg Take 1 U nivers 0.5 mg 2-05 tablet by ity of tablet 00:00: mouth once [place] 00 daily as Medical needed for Branch Other (Anxiety). desvenlafax 2021-05 Yes [id number] 100mg Take 1 [facility] ine 2-05 tablet by ity of succinate 00:00: mouth in [place] 100 mg 24 00 the Medical hr tablet morning. Branch clonazePAM 2021-05 Yes [id number] .5mg Take 1 U nivers 0.5 mg 2-05 tablet by ity of tablet 00:00: mouth once [place] 00 daily as Medical needed for Branch Other (Anxiety). desvenlafax 2021-05 Yes [id number] 100mg Take 1 [facility] ine 2-05 tablet by ity of succinate 00:00: mouth in [place] 100 mg 24 00 the Medical hr tablet morning. Branch clonazePAM 2021-05 Yes [id number] .5mg Take 1 U nivers 0.5 mg 2-05 tablet by ity of tablet 00:00: mouth once [place] 00 daily as Medical needed for Branch Other (Anxiety). desvenlafax 2021-05 Yes [id number] 100mg Take 1 [facility] ine 2-05 tablet by ity of succinate 00:00: mouth in [place] 100 mg 24 00 the Medical hr tablet morning. Branch clonazePAM 2021-05 Yes [id number] .5mg Take 1 U nivers 0.5 mg 2-05 tablet by ity of tablet 00:00: mouth once [place] 00 daily as Medical needed for Branch Other (Anxiety). desvenlafax 2021-05 Yes [id number] 100mg Take 1 [facility] ine 2-05 tablet by ity of succinate 00:00: mouth in [place] 100 mg 24 00 the Medical hr tablet morning. Branch clonazePAM 2021-05 Yes [id number] .5mg Take 1 U nivers 0.5 mg 2-05 tablet by ity of tablet 00:00: mouth once [place] 00 daily as Medical needed for Branch Other (Anxiety). desvenlafax 2021-05 Yes [id number] 100mg Take 1 [facility] ine 2-05 tablet by ity of succinate 00:00: mouth in [place] 100 mg 24 00 the Medical hr tablet morning. Branch clonazePAM 2021-05 Yes [id number] .5mg Take 1 U nivers 0.5 mg 2-05 tablet by ity of tablet 00:00: mouth once [place] 00 daily as Medical needed for Branch Other (Anxiety). desvenlafax 2021-05 Yes [id number] 100mg Take 1 [facility] ine 2-05 tablet by ity of succinate 00:00: mouth in [place] 100 mg 24 00 the Medical hr tablet morning. Branch clonazePAM 2021-05 Yes [id number] .5mg Take 1 [facility] nivers 0.5 mg 2-05 tablet by ity of tablet 00:00: mouth once [place] 00 daily as Medical needed for Branch Other (Anxiety). desvenlafax 2021-05 Yes [id number] 100mg Take 1 [facility] ine 2-05 tablet by ity of succinate 00:00: mouth in [place] 100 mg 24 00 the Medical hr tablet morning. Branch clonazePAM 2021-05 Yes [id number] .5mg Take 1 U nivers 0.5 mg 2-05 tablet by ity of tablet 00:00: mouth once [place] 00 daily as Medical needed for Branch Other (Anxiety). desvenlafax 2021-05 Yes [id number] 100mg Take 1 [facility] ine 2-05 tablet by ity of succinate 00:00: mouth in [place] 100 mg 24 00 the Medical hr tablet morning. Branch clonazePAM 2021-05 Yes [id number] .5mg Take 1 U nivers 0.5 mg 2-05 tablet by ity of tablet 00:00: mouth once [place] 00 daily as Medical needed for Branch Other (Anxiety). desvenlafax 2021-05 Yes [id number] 100mg Take 1 [facility] ine 2-05 tablet by ity of succinate 00:00: mouth in [place] 100 mg 24 00 the Medical hr tablet morning. Branch clonazePAM 2021-05 Yes [id number] .5mg Take 1 U nivers 0.5 mg 2-05 tablet by ity of tablet 00:00: mouth once [place] 00 daily as Medical needed for Branch Other (Anxiety). desvenlafax 2021-05 Yes [id number] 100mg Take 1 [facility] ine 2-05 tablet by ity of succinate 00:00: mouth in [place] 100 mg 24 00 the Medical hr tablet morning. Branch clonazePAM 2021-05 Yes [id number] .5mg Take 1 U nivers 0.5 mg 2-05 tablet by ity of tablet 00:00: mouth once [place] 00 daily as Medical needed for Branch Other (Anxiety). desvenlafax 2021-05 Yes [id number] 100mg Take 1 [facility] ine 2-05 tablet by ity of succinate 00:00: mouth in [place] 100 mg 24 00 the Medical hr tablet morning. Branch clonazePAM 2021-05 Yes [id number] .5mg Take 1 U nivers 0.5 mg 2-05 tablet by ity of tablet 00:00: mouth once [place] 00 daily as Medical needed for Branch Other (Anxiety). desvenlafax 2021-05 Yes [id number] 100mg Take 1 [facility] ine 2-05 tablet by ity of succinate 00:00: mouth in [place] 100 mg 24 00 the Medical hr tablet morning. Branch clonazePAM 2021-05 Yes [id number] .5mg Take 1 [facility] nivers 0.5 mg 2-05 tablet by ity of tablet 00:00: mouth once [place] 00 daily as Medical needed for Branch Other (Anxiety). desvenlafax 2021-05- No [id number] 100mg Take 1 [facility] ine 2-05 02-22 tablet by ity of succinate 00:00: 00:00 mouth in [place] 100 mg 24 00 :00 the Medical hr tablet morning. Branch clonazePAM 2021-05- No [id number] .5mg Take 1 [facility] 0.5 mg 2-05 02-22 tablet by ity of tablet 00:00: 00:00 mouth once [place] 00 :00 daily as Medical needed for Branch Other (Anxiety). desvenlafax 2021-05- No [id number] 100mg Take 1 [facility] ine 2-05 02-22 tablet by ity of succinate 00:00: 00:00 mouth in [place] 100 mg 24 00 :00 the Medical hr tablet morning. Branch clonazePAM 2021-05- No [id number] .5mg Take 1 [facility] 0.5 mg 2-09 01- tablet by ity of tablet 00:00: 00:00 mouth once [place] 00 :00 daily as Medical needed for Branch Other (Anxiety). desvenlafax 2021-05- No [id number] 100mg Take 1 [facility] ine 2-09 01-22 tablet by ity of succinate 00:00: 00:00 mouth in [place] 100 mg 24 00 :00 the Medical hr tablet morning. Branch clonazePAM 2021-05- No [id number] .5mg Take 1 [facility] 0.5 mg 2-09 01- tablet by ity of tablet 00:00: 00:00 mouth once [place] 00 :00 daily as Medical needed for Branch Other (Anxiety). desvenlafax 2021-05- No [id number] 100mg Take 1 [facility] 2-09 01-22 tablet by [facility] of succinate 00:00: 00:00 mouth in [place] 100 mg 24 00 :00 the Medical hr tablet morning. Branch clonazePAM 2021-05- No [id number] .5mg Take 1 [facility] 0.5 mg 06-07 tablet by [facility] tablet 00:00: 00:[place] mouth [place] 00 :[place] daily as Medical needed for Branch Other (Anxiety). dextroamphe 2021-05 Yes [id number] 15mg Take 1 [facility] tamine-amph 1-21 tablet by [facility] of etamine 15 00:00: mouth in [place] mg tablet 00 the Medical morning Branch and 1 tablet at noon and 1 tablet in the evening. dextroamphe 2021-05 Yes [id number] 15mg Take 1 [facility] tamine-amph 1-21 tablet by [facility] of etamine 15 00:00: mouth in [place] mg tablet 00 the Medical morning Branch and 1 tablet at noon and 1 tablet in the evening. dextroamphe 2021-05 Yes [id number] 15mg Take 1 [facility] tamine-amph 1-21 tablet by [facility] of etamine 15 00:00: mouth in [place] mg tablet 00 the Medical morning Branch and 1 tablet at noon and 1 tablet in the evening. dextroamphe 2021-05 Yes [id number] 15mg Take 1 [facility] tamine-amph 1-21 tablet by [facility] of etamine 15 00:00: mouth in [place] mg tablet 00 the Medical morning Branch and 1 tablet at noon and 1 tablet in the evening. dextroamphe 2021-05- No [id number] 15mg Take 1 [facility] tamine-amph 1-21 12-17 tablet by it y of etamine 15 00:00: 00:00 mouth in [place] mg tablet 00 :00 the Medical morning Branch and 1 tablet at noon and 1 tablet in the evening. dextroamphe 2021-05- No [id number] 15mg Take 1 [facility] tamine-amph 1-21 12-17 tablet by it y of etamine 15 00:00: 00:00 mouth in [place] mg tablet 00 :00 the Medical morning Branch and 1 tablet at noon and 1 tablet in the evening. dextroamphe 2021-05- No [id number] 15mg Take 1 [facility] tamine-amph 1-21 12-17 tablet by it y of etamine 15 00:00: 00:00 mouth in [place] mg tablet 00 :00 the Medical morning Branch and 1 tablet at noon and 1 tablet in the evening. dextroamphe 2021-05- No [id number] 15mg Take 1 [facility] tamine-amph 1-21 12-17 tablet by it y of etamine 15 00:00: 00:00 mouth in [place] mg tablet 00 :00 the Medical morning Branch and 1 tablet at noon and 1 tablet in the evening. dextroamphe 2021-05- No [id number] 15mg Take 1 [facility] tamine-amph 1-21 12-17 tablet by it y of etamine 15 00:00: 00:00 mouth in [place] mg tablet 00 :00 the Medical morning Branch and 1 tablet at noon and 1 tablet in the evening. dextroamphe 2021-05- No [id number] 15mg Take 1 [facility] tamine-amph 1-21 12-17 tablet by it y of etamine 15 00:00: 00:00 mouth in [place] mg tablet 00 :00 the Medical morning Branch and 1 tablet at noon and 1 tablet in the evening. dextroamphe 2021-05- No [id number] 15mg Take 1 [facility] tamine-amph 1-21 12-17 tablet by [facility] y of etamine 15 00:00: 00:00 mouth in [place] mg tablet 00 :00 the Medical morning Branch and 1 tablet at noon and 1 tablet in the evening. dextroamphe 2021-05- No [id number] 15mg Take 1 [facility] tamine-amph 1-21 12-17 tablet by [facility] y of etamine 15 00:00: 00:00 mouth in [place] mg tablet 00 :00 the Medical morning Branch and 1 tablet at noon and 1 tablet in the evening. dextroamphe 2021-05- No [id number] 15mg Take 1 [facility] tamine-amph 1-21 12-17 tablet by [facility] y of etamine 15 00:00: 00:00 mouth in [place] mg tablet 00 :00 the Medical morning Branch and 1 tablet at noon and 1 tablet in the evening. dextroamphe 2021-05- No [id number] 15mg Take 1 [facility] tamine-amph 1-21 12-17 tablet by it y of etamine 15 00:00: 00:00 mouth in [place] mg tablet 00 :00 the Medical morning Branch and 1 tablet at noon and 1 tablet in the evening. dextroamphe 2021-05 Yes [id number] 15mg Take 1 [facility] tamine-amph 1-16 tablet by [facility] of etamine 15 00:00: mouth in [place] mg tablet 00 the Medical morning Branch and 1 tablet at noon and 1 tablet in the evening. dextroamphe 2021-05 Yes [id number] 15mg Take 1 [facility] tamine-amph 1-16 tablet by [facility] of etamine 15 00:00: mouth in [place] mg tablet 00 the Medical morning Branch and 1 tablet at noon and 1 tablet in the evening. dextroamphe 2021-05- No [id number] 15mg Take 1 [facility] tamine-amph 1-16 11-21 tablet by it y of etamine 15 00:00: 00:00 mouth in [place] mg tablet 00 :00 the Medical morning Branch and 1 tablet at noon and 1 tablet in the evening. dextroamphe 2021-05- No [id number] 15mg Take 1 [facility] tamine-amph 1-16 11-21 tablet by [facility] of etamine 15 00:00: 00:00 mouth in [place] mg tablet 00 :00 the Medical morning Branch and 1 tablet at noon and 1 tablet in the evening. dextroamphe 2021-05- No [id number] 15mg Take 1 [facility] tamine-amph 1-16 11-21 tablet by [facility] y of etamine 15 00:00: 00:00 mouth in [place] mg tablet 00 :00 the Medical morning Branch and 1 tablet at noon and 1 tablet in the evening. propranoloL 2021-05 Yes [id number] 40mg Take 1 [facility] 40 mg 1-11 tablet by [facility] of tablet 00:00: mouth in [place] 00 the Medical morning Branch and 1 tablet in the evening. methIMAzole 2021-05 Yes [id number] 20mg Take 2 [facility] 10 mg 1-11 tablets by [facility] of tablet 00:00: mouth in [place] the Medical morning. Branch propranoloL 2021-05 Yes [id number] 40mg Take 1 [facility] 40 mg 1-11 tablet by [facility] of tablet 00:00: mouth in [place] the Medical morning Branch and 1 tablet in the evening. methIMAzole 2021-05 Yes [id number] 20mg Take 2 [facility] 10 mg 1-11 tablets by [facility] of tablet 00:00: mouth in [place] the Medical morning. Branch propranoloL 2021-05 Yes [id number] 40mg Take 1 [facility] 40 mg 1-11 tablet by [facility] of tablet 00:00: mouth in [place] the Medical morning Branch and 1 tablet in the evening. methIMAzole 2021-05 Yes [id number] 20mg Take 2 [facility] 10 mg 1-11 tablets by [facility] of tablet 00:00: mouth in [place] the Medical morning. Branch propranoloL 2021-05 Yes [id number] 40mg Take 1 [facility] 40 mg 1-11 tablet by [facility] of tablet 00:00: mouth in [place] the Medical morning Branch and 1 tablet in the evening. methIMAzole 2021-05 Yes [id number] 20mg Take 2 [facility] 10 mg 1-11 tablets by [facility] of tablet 00:00: mouth in [place] the Medical morning. Branch propranoloL 2021-05 Yes [id number] 40mg Take 1 [facility] 40 mg 1-11 tablet by [facility] of tablet 00:00: mouth in [place] 00 the Medical morning Branch and 1 tablet in the evening. methIMAzole 2021-05 Yes [id number] 20mg Take 2 [facility] 10 mg 1-11 tablets by [facility] of tablet 00:00: mouth in [place] the Medical morning. Branch propranoloL 2021-05 Yes [id number] 40mg Take 1 [facility] 40 mg 1-11 tablet by [facility] of tablet 00:00: mouth in [place] the Medical morning Branch and 1 tablet in the evening. methIMAzole 2021-05 Yes [id number] 20mg Take 2 [facility] 10 mg 1-11 tablets by [facility] of tablet 00:00: mouth in [place] the Medical morning. Branch propranoloL 2021-05 Yes [id number] 40mg Take 1 [facility] 40 mg 1-11 tablet by [facility] of tablet 00:00: mouth in [place] the Medical morning Branch and 1 tablet in the evening. methIMAzole 2021-05 Yes [id number] 20mg Take 2 [facility] 10 mg 1-11 tablets by [facility] of tablet 00:00: mouth in [place] the Medical morning. Branch propranoloL 2021-05 Yes [id number] 40mg Take 1 [facility] 40 mg 1-11 tablet by [facility] of tablet 00:00: mouth in [place] the Medical morning Branch and 1 tablet in the evening. methIMAzole 2021-05 Yes [id number] 20mg Take 2 [facility] 10 mg 1-11 tablets by [facility] of tablet 00:00: mouth in [place] the morning. Branch propranoloL 2021-05 Yes [id number] 40mg Take 1 [facility] 40 mg 1-11 tablet by [facility] of tablet 00:00: mouth in [place] the Medical morning Branch and 1 tablet in the evening. methIMAzole 2021-05 Yes [id number] 20mg Take 2 [facility] 10 mg 1-11 tablets by [facility] of tablet 00:00: mouth in [place] the Medical morning. Branch propranoloL 2021-05 Yes [id number] 40mg Take 1 [facility] 40 mg 1-11 tablet by [facility] of tablet 00:00: mouth in [place] the Medical morning Branch and 1 tablet in the evening. methIMAzole 2021-05 Yes [id number] 20mg Take 2 [facility] 10 mg 1-11 tablets by [facility] of tablet 00:00: mouth in [place] the Medical morning. Branch propranoloL 2021-05 Yes [id number] 40mg Take 1 [facility] 40 mg 1-11 tablet by [facility] of tablet 00:00: mouth in [place] the Medical morning Branch and 1 tablet in the evening. methIMAzole 2021-05 Yes [id number] 20mg Take 2 [facility] 10 mg 1-11 tablets by [facility] of tablet 00:00: mouth in [place] the morning. Branch propranoloL 2021-05 Yes [id number] 40mg Take 1 [facility] 40 mg 1-11 tablet by [facility] of tablet 00:00: mouth in [place] the Medical morning Branch and 1 tablet in the evening. methIMAzole 2021-05 Yes [id number] 20mg Take 2 [facility] 10 mg 1-11 tablets by [facility] of tablet 00:00: mouth in [place] the Medical morning. Branch propranoloL 2021-05 Yes [id number] 40mg Take 1 [facility] 40 mg 1-11 tablet by [facility] of tablet 00:00: mouth in [place] the Medical morning Branch and 1 tablet in the evening. methIMAzole 2021-05 Yes [id number] 20mg Take 2 [facility] 10 mg 1-11 tablets by [facility] of tablet 00:00: mouth in [place] the morning. Branch propranoloL 2021-05 Yes [id number] 40mg Take 1 [facility] 40 mg 1-11 tablet by [facility] of tablet 00:00: mouth in [place] the Medical morning Branch and 1 tablet in the evening. methIMAzole 2021-05 Yes [id number] 20mg Take 2 [facility] 10 mg 1-11 tablets by [facility] of tablet 00:00: mouth in [place] the morning. Branch propranoloL 2021-05 Yes [id number] 40mg Take 1 [facility] 40 mg 1-11 tablet by [facility] of tablet 00:00: mouth in [place] the Medical morning Branch and 1 tablet in the evening. methIMAzole 2021-05 Yes [id number] 20mg Take 2 [facility] 10 mg 1-11 tablets by [facility] of tablet 00:00: mouth in [place] the Medical morning. Branch propranoloL 2021-05 Yes [id number] 40mg Take 1 [facility] 40 mg 1-11 tablet by [facility] of tablet 00:00: mouth in [place] the Medical morning Branch and 1 tablet in the evening. methIMAzole 2021-05 Yes [id number] 20mg Take 2 [facility] 10 mg 1-11 tablets by [facility] of tablet 00:00: mouth in [place] the Medical morning. Branch propranoloL 2021-05- No [id number] 40mg Take 1 [facility] 40 mg 1-11 01-11 tablet by [facility] of tablet 00:00: 00:00 mouth in [place] 00 :00 the Medical morning Branch and 1 tablet in the evening. methIMAzole 2021-2022- No [id number] 20mg Take 2 [facility] 10 mg -05-13 tablets by [facility] of tablet 00:00: 00:00 mouth in [place] 00 :00 the Medical morning. Branch propranoloL 2021-2022- No [id number] 40mg Take 1 [facility] 40 mg -05-13 tablet by [facility] of tablet 00:00: 00:00 mouth in [place] 00 :00 the Medical morning Branch and 1 tablet in the evening. methIMAzole 2021-2022- No [id number] 20mg Take 2 [facility] 10 mg 05-13 tablets by [facility] of tablet 00:00: 00:00 mouth in [place] 00 :00 the Medical morning. Branch propranoloL 2021-2022- No [id number] 40mg Take 1 [facility] 40 mg 05-13 tablet by [facility] of tablet 00:00: 00:00 mouth in [place] 00 :00 the Medical morning Branch and 1 tablet in the evening. methIMAzole 2021-05- No [id number] 20mg Take 2 [facility] 10 mg 05-13 tablets by [facility] of tablet 00:00: 00:00 mouth in [place] 00 :00 the Medical morning. Branch clonazePAM 2021-05 Yes [id number] .5mg Take 1 [facility] 0.5 mg 1-03 tablet by [facility] of tablet 00:00: mouth once [place] 00 daily as Medical needed for Branch Other (Anxiety). clonazePAM 2021-05 Yes [id number] .5mg Take 1 [facility] 0.5 mg 1-03 tablet by [facility] of tablet 00:00: mouth once [place] 00 daily as Medical needed for Branch Other (Anxiety). clonazePAM 2021-05 Yes [id number] .5mg Take 1 [facility] 0.5 mg 1-03 tablet by [facility] of tablet 00:00: mouth once [place] 00 daily as Medical needed for Branch Other (Anxiety). clonazePAM 2021-05 Yes [id number] .5mg Take 1 [facility] 0.5 mg 1-03 tablet by [facility] of tablet 00:00: mouth once [place] 00 daily as Medical needed for Branch Other (Anxiety). clonazePAM 2021-05 Yes [id number] .5mg Take 1 [facility] 0.5 mg 05-05 tablet by [facility] of tablet 00:00: mouth once [place] 00 daily as Medical needed for Branch Other (Anxiety). clonazePAM 2021-05 No [id number] .5mg Take 1 [facility] 0.5 mg 05-05 tablet by [facility] tablet 00:00: 00:[place] mouth [place] 00 :00 daily as Medical needed for Branch Other (Anxiety). clonazePAM 2021-05 No [id number] .5mg Take 1 [facility] 0.5 mg 05-05 tablet by [facility] tablet 00:00: 00:00 mouth [place] 00 :00 daily as Medical needed for Branch Other (Anxiety). clonazePAM 2021-05 No [id number] .5mg Take 1 [facility] 0.5 mg 05-05 tablet by [facility] tablet 00:00: 00:00 mouth [place] 00 :00 daily as Medical needed for Branch Other (Anxiety). clonazePAM 2021-05 No [id number] .5mg Take 1 [facility] 0.5 mg 05-05 tablet by [facility] tablet 00:00: 00:00 mouth [place] 00 :00 daily as Medical needed for Branch Other (Anxiety). clonazePAM 2021-05 No [id number] .5mg Take 1 [facility] 0.5 mg 05-05 tablet by [facility] tablet 00:00: 00:00 mouth [place] 00 :00 daily as Medical needed for Branch Other (Anxiety). clonazePAM 2021-05 No [id number] .5mg Take 1 [facility] 0.5 mg 05-05 tablet by [facility] tablet 00:00: 00:00 mouth [place] 00 :00 daily as Medical needed for Branch Other (Anxiety). clonazePAM 2021-05- No [id number] .5mg Take 1 [facility] 0.5 mg 05-05 tablet by [facility] tablet 00:00: 00:00 mouth [place] 00 :00 daily as Medical needed for Branch Other (Anxiety). clonazePAM 2021-05 No [id number] .5mg Take 1 [facility] 0.5 mg 05-05 tablet by [facility] tablet 00:00: 00:00 mouth [place] 00 :00 daily as Medical needed for Branch Other (Anxiety). clonazePAM 2021-05- No [id number] .5mg Take 1 [facility] 0.5 mg 05-05 tablet by [facility] tablet 00:00: 00:00 mouth [place] 00 :00 daily as Medical needed for Branch Other (Anxiety). clonazePAM 2021-05- No [id number] .5mg Take 1 [facility] 0.5 mg 05-05 tablet by [facility] tablet 00:00: 00:00 mouth [place] 00 :00 daily as Medical needed for Branch Other (Anxiety). dextroamphe 2021-05 Yes [id number] 15mg Take 1 [facility] tamine-amph 0-14 tablet by [facility] of etamine 15 00:00: mouth in [place] mg tablet 00 the Medical morning Branch and 1 tablet at noon and 1 tablet in the evening. dextroamphe 2021-05 Yes [id number] 15mg Take 1 [facility] tamine-amph 0-14 tablet by [facility] of etamine 15 00:00: mouth in [place] mg tablet 00 the Medical morning Branch and 1 tablet at noon and 1 tablet in the evening. dextroamphe 2021-05 Yes [id number] 15mg Take 1 [facility] tamine-amph 0-14 tablet by [facility] of etamine 15 00:00: mouth in [place] mg tablet 00 the Medical morning Branch and 1 tablet at noon and 1 tablet in the evening. dextroamphe 2021-05 Yes [id number] 15mg Take 1 [facility] tamine-amph 0-14 tablet by [facility] of etamine 15 00:00: mouth in [place] mg tablet 00 the Medical morning Branch and 1 tablet at noon and 1 tablet in the evening. dextroamphe 2021-05- No [id number] 15mg Take 1 [facility] tamine-amph 0-14 11-11 tablet by it y of etamine 15 00:00: 00:00 mouth in [place] mg tablet 00 :00 the Medical morning Branch and 1 tablet at noon and 1 tablet in the evening. dextroamphe 2021-05- No [id number] 15mg Take 1 [facility] tamine-amph 0-14 11-11 tablet by [facility] y of etamine 15 00:00: 00:00 mouth in [place] mg tablet 00 :00 the Medical morning Branch and 1 tablet at noon and 1 tablet in the evening. dextroamphe 2021-05- No [id number] 15mg Take 1 [facility] tamine-amph 0-14 11-11 tablet by [facility] y of etamine 15 00:00: 00:00 mouth in [place] mg tablet 00 :00 the Medical morning Branch and 1 tablet at noon and 1 tablet in the evening. desvenlafax 2021-05 Yes [id number] 100mg Take 1 [facility] in[facility] 0-10 tablet by [facility] succinate 00:00: mouth [place] 100 mg 24 00 the Medical hr tablet morning. [place] desvenlafax 2021-05 Yes 100mg Take 1 [facility] 0-10 tablet by [facility] succinate 00:00: mouth [place] 100 mg 24 00 the Medical hr tablet morning. [place] desvenlafax 2021-05 Yes [id number] 100mg Take 1 [facility] 0-10 tablet by [facility] succinate 00:00: mouth [place] 100 mg 24 00 the Medical hr tablet morning. [place] desvenlafax 2021-05 Yes [id number] 100mg Take 1 [facility] 0-10 tablet by [facility] succinate 00:00: mouth [place] 100 mg 24 00 the Medical hr tablet morning. [place] desvenlafax 2021-05 Yes [id number] 100mg Take 1 [facility] 0-10 tablet by [facility] succinate 00:00: mouth [place] 100 mg 24 00 the Medical hr tablet morning. [place] desvenlafax 2021-05 Yes [id number] 100mg Take 1 [facility] 0-10 tablet by [facility] succinate 00:00: mouth [place] 100 mg 24 00 the Medical hr tablet morning. [place] desvenlafax 2021-05 Yes [id number] 100mg Take 1 [facility] 0-10 tablet by [facility] succinate 00:00: mouth [place] 100 mg 24 00 the Medical hr tablet morning. [place] desvenlafax 2021-05- No 100mg Take 1 [facility] 0-10 12-03 tablet by [facility] of succinate 00:00: 00:00 mouth in [place] 100 mg 24 00 :00 the Medical hr tablet morning. Aleks green 2021-05- No 100mg Take 1 [facility] 0-10 12-03 tablet by [facility] of succinate 00:00: 00:00 mouth in [place] 100 mg 24 00 :00 the Medical hr tablet morning. Aleks green 2021-05- No 100mg Take 1 [facility] 0-10 12-03 tablet by [facility] of succinate 00:00: 00:00 mouth in [place] 100 mg 24 00 :00 the Medical hr tablet morning. Aleks stinsonx 2021-05- No 100mg Take 1 [facility] 0-10 12-03 tablet by [facility] of succinate 00:00: 00:00 mouth in [place] 100 mg 24 00 :00 the Medical hr tablet morning. Aleks green 2021-05- No 100mg Take 1 [facility] 0-10 12-03 tablet by [facility] of succinate 00:00: 00:00 mouth in [place] 100 mg 24 00 :00 the Medical hr tablet morning. Aleks green 2021-05- No 100mg Take 1 [facility] 0-10 12-03 tablet by [facility] of succinate 00:00: 00:00 mouth in [place] 100 mg 24 00 :00 the Medical hr tablet morning. Aleks green 2021-05- No 100mg Take 1 [facility] 0-10 12-03 tablet by [facility] of succinate 00:00: 00:00 mouth in [place] 100 mg 24 00 :00 the Medical hr tablet morning. Aleks stinsonx 2021-05- No 100mg Take 1 [facility] 0-10 12-03 tablet by [facility] of succinate 00:00: 00:00 mouth in [place] 100 mg 24 00 :00 the Medical hr tablet morning. Aleks schwartzfax 2021-05- No 100mg Take 1 [facility] 0-10 12-03 tablet by [facility] of succinate 00:00: 00:00 mouth in [place] 100 mg 24 00 :00 the Medical hr tablet morning. Aleks schwartzfax 2021-05- No 100mg Take 1 [facility] 0-10 12-03 tablet by [facility] of succinate 00:00: 00:00 mouth in [place] 100 mg 24 00 :00 the Medical hr tablet morning. Branch desvenlafax 2021-05 Yes [id number] 50mg Take 1 [facility] in[facility] 0-04 tablet by [facility] succinate 00:00: mouth [place] (PRIST[place] 00 the Medical 50 mg 24 hr morning. Bran ch tablet clonazePAM 2021-05 Yes [id number] .5mg Take 1 [facility] n[facility] 0.5 mg 0-04 tablet by [facility] of tablet 00:00: mouth once [place] 00 daily as Medical needed for Branch Other (Anxiety). clonazePAM 2021-05 Yes [id number] .5mg Take 1 [facility] n[facility] 0.5 mg 0-04 tablet by [facility] of tablet 00:00: mouth once [place] 00 daily as Medical needed for Branch Other (Anxiety). clonazePAM 2021-05 Yes [id number] .5mg Take 1 [facility] n[facility] 0.5 mg 0-04 tablet by [facility] of tablet 00:00: mouth once [place] 00 daily as Medical needed for Branch Other (Anxiety). clonazePAM 2021-05- No [id number] .5mg Take 1 [facility] 0.5 mg 0-04 11-03 tablet by [facility] tablet 00:00: 00:00 mouth [place] 00 :00 daily as Medical needed for Branch Other (Anxiety). clonazePAM 2021-05- No [id number] .5mg Take 1 [facility] 0.5 mg 0-04 11-03 tablet by [facility] of tablet 00:00: 00:00 mouth [place] 00 :00 daily as Medical needed for Branch Other (Anxiety). clonazePAM 2021-05- No [id number] .5mg Take 1 [facility] 0.5 mg 0-04 11-03 tablet by [facility] of tablet 00:00: 00:00 mouth [place] 00 :00 daily as Medical needed for Branch Other (Anxiety). desvenlafax 2021-05- No [id number] 50mg Take 1 [facility] 0-04 10-10 tablet by [facility] of succinate 00:00: 00:00 mouth in [place] ([facility]IST[place]) 00 :00 the Medical 50 mg 24 hr morning. Bran ch tablet desvenlafax 2021-05- No [id number] 50mg Take 1 [facility] 0-04 10-10 tablet by [facility] of succinate 00:00: 00:00 mouth in [place] ([place]) 00 :00 the Medical 50 mg 24 hr morning. Bran ch tablet desvenlafax 2021-05- No [id number] 50mg Take 1 [facility] 0-04 10-10 tablet by [facility] of succinate 00:00: 00:00 mouth in [place] ([place]) 00 :00 the Medical 50 mg 24 hr morning. Bran ch tablet dextroamphe 2021- No [id number] 15mg Take 1 [facility] tamine-amph 9- 10- tablet by it y of etamine 15 00:00: 00:00 mouth in [place] mg tablet 00 :00 the Medical morning Branch and 1 tablet at noon and 1 tablet in the evening. dextroamphe 2021-0 2021- No [id number] 15mg Take 1 [facility] tamine-amph - 10- tablet by it y of etamine 15 00:00: 00:00 mouth in [place] mg tablet 00 :00 the Medical morning Branch and 1 tablet at noon and 1 tablet in the evening. dextroamphe 2021-0 2021- No [id number] 15mg Take 1 [facility] tamine-amph 9-05 10- tablet by [facility] y of etamine 15 00:00: 00:00 mouth in [place] mg tablet 00 :00 the Medical morning Branch and 1 tablet at noon and 1 tablet in the evening. desvenlafax 2021-2021- No [id number] 50mg Take 1 [facility] in[facility] 9- 10- tablet by [facility] of succinate 00:00: 00:00 mouth in [place] ([facility]) 00 :00 the Medical 50 mg 24 hr morning. Bran ch tablet clonazePAM 2021- No [id number] .5mg Take 1 [facility] 0.5 mg -06 12- tablet by [facility] tablet 00:00: 00:00 mouth [place] 00 :00 daily as Medical needed for Branch Other (Anxiety). desvenlafax 2021-0 2021- No [id number] 50mg Take 1 [facility] 9- 10- tablet by [facility] of succinate 00:00: 00:00 mouth in [place] ([place]) 00 :00 the Medical 50 mg 24 hr morning. Bran ch tablet clonazePAM 2021- No [id number] .5mg Take 1 [facility] 0.5 mg 01-02 tablet by [facility] of tablet 00:00: 00:00 mouth [place] 00 :00 daily as Medical needed for Branch Other (Anxiety). desvenlafax 2021-2021- No [id number] 50mg Take 1 [facility] in[facility] 01-02 tablet by [facility] of succinate 00:00: 00:00 mouth in [place] ([facility]) 00 :00 the Medical 50 mg 24 hr morning. Bran ch tablet clonazePAM 2021- No [id number] .5mg Take 1 [facility] 0.5 mg 01-02 tablet by [facility] of tablet 00:00: 00:00 mouth [place] 00 :00 daily as Medical needed for Branch Other (Anxiety). propranoloL 2021-0 Yes [id number] 40mg Take 1 [facility] 40 mg 8-19 tablet by [facility] of tablet 00:00: mouth in [place] 00 the Medical morning Branch and 1 tablet in the evening. methIMAzole 2021-0 Yes [id number] 20mg Take 2 [facility] 10 mg 8-19 tablets by [facility] of tablet 00:00: mouth in [place] 00 the Medical morning. Branch propranoloL 2021-0 Yes [id number] 40mg Take 1 [facility] 40 mg 8-19 tablet by [facility] of tablet 00:00: mouth in [place] 00 the Medical morning Branch and 1 tablet in the evening. methIMAzole 2021-0 Yes [id number] 20mg Take 2 [facility] 10 mg 8-19 tablets by [facility] of tablet 00:00: mouth in [place] 00 the Medical morning. Branch propranoloL 2021-0 Yes [id number] 40mg Take 1 [facility] 40 mg 8-19 tablet by [facility] of tablet 00:00: mouth in [place] 00 the Medical morning Branch and 1 tablet in the evening. methIMAzole 2022-0 Yes [id number] 20mg Take 2 [facility] 10 mg 8-19 tablets by [facility] of tablet 00:00: mouth in [place] 00 the Medical morning. Branch propranoloL 2-0 Yes [id number] 40mg Take 1 [facility] 40 mg 8-19 tablet by [facility] of tablet 00:00: mouth in [place] 00 the Medical morning Branch and 1 tablet in the evening. methIMAzole 2022-0 Yes [id number] 20mg Take 2 [facility] 10 mg 8-19 tablets by [facility] of tablet 00:00: mouth in [place] 00 the Medical morning. Branch propranoloL 2021-0 Yes [id number] 40mg Take 1 [facility] 40 mg 8-19 tablet by [facility] of tablet 00:00: mouth in [place] 00 the Medical morning Branch and 1 tablet in the evening. methIMAzole 2021-0 Yes [id number] 20mg Take 2 [facility] 10 mg 8-19 tablets by [facility] of tablet 00:00: mouth in [place] 00 the Medical morning. Branch propranoloL 2021-0 Yes [id number] 40mg Take 1 [facility] 40 mg 8-19 tablet by [facility] of tablet 00:00: mouth in [place] 00 the Medical morning Branch and 1 tablet in the evening. methIMAzole 2021-0 Yes [id number] 20mg Take 2 [facility] 10 mg 8-19 tablets by [facility] of tablet 00:00: mouth in [place] 00 the Medical morning. Branch propranoloL 2021-0 2021- No [id number] 40mg Take 1 [facility] 40 mg 8-19 11-11 tablet by [facility] of tablet 00:00: 00:00 mouth in [place] 00 :00 the Medical morning Branch and 1 tablet in the evening. methIMAzole 2021-0 2021- No [id number] 20mg Take 2 [facility] 10 mg 8-19 11-11 tablets by [facility] of tablet 00:00: 00:00 mouth in [place] 00 :00 the Medical morning. Branch propranoloL 2021-0 2- No [id number] 40mg Take 1 [facility] 40 mg 8-19 11-11 tablet by [facility] of tablet 00:00: 00:00 mouth in [place] 00 :00 the Medical morning Branch and 1 tablet in the evening. methIMAzole 2021-0 2- No [id number] 20mg Take 2 [facility] 10 mg 8-19 11-11 tablets by [facility] of tablet 00:00: 00:00 mouth in [place] 00 :00 the Medical morning. Branch propranoloL 2021-0 2- No [id number] 40mg Take 1 Univers 40 mg 8-19 11-11 tablet by ity of tablet 00:00: 00:00 mouth in [place] 00 :00 the Medical morning Branch and 1 tablet in the evening. methIMAzole 2021-0 2022- No [id number] 20mg Take 2 Univers 10 mg 8-19 11-11 tablets by ity of tablet 00:00: 00:00 mouth in [place] 00 :00 the Medical morning. Branch baclofen 10 2021-0 Yes Univer s mg tablet 8- ity of 00:00: [place] [facility] baclofen 10 2021-0 Yes Univer s mg tablet 8 ity of 00:00: [place] [facility] baclofen 10 2021-0 Yes Univer s mg tablet 8 ity of 00:00: [place] [facility] baclofen 10 2021-0 Yes Univer s mg tablet 8 ity of 00:00: [place] [facility] baclofen 10 2021-0 Yes Univer s mg tablet 8 ity of 00:00: [place] [facility] baclofen 10 2021-0 Yes Univer s mg tablet 12-04 ity of 00:00: [place] [facility] baclofen 10 2021-0 Yes Univer s mg tablet 12-04 ity of 00:00: [place] [facility] baclofen 10 2021-0 Yes Univer s mg tablet 8 ity of 00:00: [place] [facility] baclofen 10 2021-0 Yes Univer s mg tablet 12-04 ity of 00:00: [place] [facility] baclofen 10 2021-0 Yes Univer s mg tablet 12-04 ity of 00:00: [place] [facility] baclofen 10 2021-0 Yes Univer s mg tablet 12-04 ity of 00:00: [place] [facility] baclofen 10 2021-0 Yes Univer s mg tablet 8 ity of 00:00: [place] [facility] baclofen 10 2021-0 Yes Univer s mg tablet 12-04 ity of 00:00: [place] 00 Medical Branch baclofen 10 2021-0 Yes Univer s mg tablet 8 ity of 00:00: [place] 00 Medical Branch baclofen 10 2021-0 Yes Univer s mg tablet 8 ity of 00:00: [place] [facility] baclofen 10 2021-0 Yes Univer s mg tablet 8 ity of 00:00: [place] 00 Medical Branch baclofen 10 2021-0 Yes Univer s mg tablet 8- ity of 00:00: [place] 00 Medical Branch baclofen 10 2022-0 Yes Univer s mg tablet 8-04 ity of 00:00: [place] 00 Medical Branch baclofen 10 2021-0 Yes Univer s mg tablet 12-04 ity of 00:00: [place] 00 Medical Branch baclofen 10 2021-0 Yes Univer s mg tablet 12-04 ity of 00:00: [place] 00 Medical Branch baclofen 10 2021-0 Yes Univer s mg tablet 12-04 ity of 00:00: [place] [facility] baclofen 10 2021-0 Yes Univer s mg tablet 12-04 ity of 00:00: [place] 00 Medical Branch baclofen 10 2021-0 Yes Univer s mg tablet 12-04 ity of 00:00: [place] [address] Medical Branch baclofen 10 2021-0 Yes Univer s mg tablet 12-04 ity of 00:00: [place] [address] Medical Branch baclofen 10 2021-0 3- No Unive rs mg tablet 12-04 ity of 00:00: 00:00 [place] 00 :00 Medical Branch baclofen 10 2021-0 2022- No Unive rs mg tablet 12-04 ity of 00:00: 00:00 [place] 00 :00 Medical Branch baclofen 10 2021-0 2022- No Unive rs mg tablet 12-04 ity of 00:00: 00:00 [place] 00 :00 Medical Branch baclofen 10 2021-0 2022- No Unive rs mg tablet 12-04 ity of 00:00: 00:00 [place] 00 :00 Medical Branch baclofen 10 2021-0 2022- No Unive rs mg tablet 12-04 ity of 00:00: 00:00 [place] 00 :00 Medical Branch desvenlafax 2021-0 2021- No [id number] 50mg Take 1 Univers ine 12-02 tablet by ity of succinate 00:00: 00:00 mouth in [place] (PRISTIQ) 00 :00 the Medical 50 mg 24 hr morning. Bran ch tablet clonazePAM 2021- No [id number] .5mg Take 1 Univers 0.5 mg 12-02 tablet by ity of tablet 00:00: 00[place] 00 [place] daily as Medical needed for Branch Other (Anxiety). dextroamphe 2021- No [id number] 15mg Take 1 Univers tamine-amph 12-02 tablet by it y of etamine 15 00:00: 00:00 [place] mg tablet 00 :00 the Medical [facility] Branch and 1 tablet at noon and 1 tablet in the evening. baclofen 10 Yes 10 mg = 1 M emoria mg oral 4-05 tab, PO, l tablet 15:04: Bedtime, # Sonia nn 00 30 tab, 2 Refill(s), Pharmacy: [facility] [id number], 167.64, cm, 08/05/21 9:46:00 CDT, Height, 79.545, kg, 08/05/21 9:46:00 CDT, Weight Pristiq 50 Yes 50 mg = 1 Me moria mg oral 2-23 tab, PO, l tablet, 21:05: Daily, # Terry n extended 00 30 tab, 0 release Refill(s) Adderall 15 Yes 15 mg = 1 M emoria mg oral 2-23 tab, PO, l tablet 21:05: BID, # 30 Terry n 00 tab, 0 Refill(s) 24 HR Yes 50 mg = 1 Memoria Desvenlafax 2-23 tab, PO, l ine 50 MG 21:05: Daily, # Herm antoinette Extended 00 30 tab, 0 Release Refill(s) Tablet [Pristiq] Amphetamine Yes 15 mg = 1 M emoria aspartate 2-23 tab, PO, l 3.75 MG / 21:05: BID, # 30 Her stone Amphetamine 00 tab, 0 Sulfate Refill(s) 3.75 MG / Dextroamphe tamine saccharate 3.75 MG / Dextroamphe tamine Sulfate 3.75 MG Oral Tablet [Adderall] clonazePAM Yes 0.5 mg = 1 M emoria 0.5 mg oral 2-23 tab, PO, l tablet 21:04: TID, # 90 Terry n 00 tab, 0 Refill(s) nicotine Yes Univer s mg/24 hr 8-25 ity of patch 00:00: [address] Branch nicotine Yes Univer s mg/24 hr 8-25 ity of patch 00:00: [place] [facility] nicotine 21 2021-0 Yes Univer s mg/24 hr 8-25 ity of patch 00:00: [place] [facility] nicotine 21 2021-0 Yes Univer s mg/24 hr 8-25 ity of patch 00:00: [place] [facility] nicotine 21 2021-0 Yes Univer s mg/24 hr 8-25 ity of patch 00:00: [place] [facility] nicotine 21 2021-0 Yes Univer s mg/24 hr 8-25 ity of patch 00:00: [place] [facility] nicotine 21 2021-0 Yes Univer s mg/24 hr 8-25 ity of patch 00:00: [place] [facility] nicotine 21 2021-0 Yes Univer s mg/24 hr 8-25 ity of patch 00:00: [place] [facility] nicotine 21 1-0 Yes Univer s mg/24 hr 8-25 ity of patch 00:00: [place] [facility] nicotine 21 2021-0 Yes Univer s mg/24 hr 8-25 ity of patch 00:00: [place] [facility] nicotine 21 2021-0 Yes Univer s mg/24 hr 8-25 ity of patch 00:00: [place] [facility] nicotine 21 2021-0 Yes Univer s mg/24 hr 8-25 ity of patch 00:00: [place] [facility] nicotine 21 2021-0 Yes Univer s mg/24 hr 8-25 ity of patch 00:00: [place] [facility] nicotine 21 2021-0 Yes Univer s mg/24 hr 8-25 ity of patch 00:00: [place] [facility] nicotine 21 2021-0 Yes Univer s mg/24 hr 8-25 ity of patch 00:00: [place] [facility] nicotine 21 2021-0 Yes Univer s mg/24 hr 8-25 ity of patch 00:00: [place] [facility] nicotine 21 2021-0 Yes Univer s mg/24 hr 8-25 ity of patch 00:00: [place] [facility] nicotine 21 2021-0 Yes Univer s mg/24 hr 8-25 ity of patch 00:00: [place] [facility] nicotine 21 2021-0 Yes Univer s mg/24 hr 8-25 ity of patch 00:00: [place] [facility] nicotine 21 2021-0 Yes Univer s mg/24 hr 8-25 ity of patch 00:00: [place] [facility] nicotine 21 2021-0 Yes Univer s mg/24 hr 8-25 ity of patch 00:00: [place] [facility] nicotine 21 2021-0 Yes Univer s mg/24 hr 8-25 ity of patch 00:00: [place] [facility] nicotine 21 2021-0 Yes Univer s mg/24 hr 8-25 ity of patch 00:00: [place] [facility] nicotine 21 2021-0 Yes Univer s mg/24 hr 8-25 ity of patch 00:00: [place] [facility] nicotine 21 1-0 Yes Univer s mg/24 hr 8-25 ity of patch 00:00: [place] [facility] nicotine 21 2021-0 Yes Univer s mg/24 hr 8-25 ity of patch 00:00: [place] [facility] nicotine 21 1-0 Yes Univer s mg/24 hr 8-25 ity of patch 00:00: [place] [facility] nicotine 21 2021-0 Yes Univer s mg/24 hr 8-25 ity of patch 00:00: [place] [facility] nicotine 21 1-0 Yes Univer s mg/24 hr 8-25 ity of patch 00:00: [place] [facility] nicotine 21 2021-0 Yes Univer s mg/24 hr 8-25 ity of patch 00:00: [place] [facility] nicotine 21 2021-0 Yes Univer s mg/24 hr 8-25 ity of patch 00:00: [place] [facility] nicotine 21 2021-0 Yes Univer s mg/24 hr 8-25 ity of patch 00:00: [place] [facility] nicotine 21 2021-0 Yes Univer s mg/24 hr 8-25 ity of patch 00:00: [place] [facility] nicotine 21 2021-0 Yes Univer s mg/24 hr 8-25 ity of patch 00:00: [place] [facility] nicotine 21 2021-0 Yes Univer s mg/24 hr 8-25 ity of patch 00:00: [place] [facility] nicotine 21 2021-0 Yes Univer s mg/24 hr 8-25 ity of patch 00:00: [place] [facility] nicotine 21 2020-0 Yes Univer s mg/24 hr 8-25 ity of patch 00:00: Medical Branch nicotine 21 2020-0 Yes Univer s mg/24 hr 8-25 ity of patch 00:00: [place] [facility] nicotine 21 2020-0 Yes Univer s mg/24 hr 8-25 ity of patch 00:00: 00 Medical Branch Loestrin 24 Loestrin 24 2018-0 Yes Pal 1 tablet Common Fe Fe 5-15 [facility] 00:00: - [facility] 00 [facility] Immunizations Ordered Filled Immunization Date Status Comments Sour e Immunization Name Name TDAP (ADACEL) 2019-06-09 Completed University of VACCINE 00:00:00 [facility] TDAP (ADACEL) 2019-06-09 Completed University of VACCINE 00:00:00 [facility] TDAP (ADACEL) 2019-06-09 Completed University of VACCINE 00:00:00 [facility] TDAP (ADACEL) 2019-06-09 Completed University of VACCINE 00:00:00 [facility] TDAP (ADACEL) 2019-06-09 Completed University of VACCINE 00:00:00 [facility] TDAP (ADACEL) 2019-06-09 Completed University of VACCINE 00:00:00 [facility] [facility] TDAP (ADACEL) 2019-06-09 Completed University of VACCINE 00:00:00 [facility] [facility] TDAP (ADACEL) 2019-06-09 Completed University of VACCINE 00:00:00 [facility] TDAP (ADACEL) 2019-06-09 Completed University of VACCINE 00:00:00 [facility] [facility] TDAP (ADACEL) 2019-06-09 Completed University of VACCINE 00:00:00 [facility] [facility] TDAP (ADACEL) 2019-06-09 Completed University of VACCINE 00:00:00 [facility] [facility] TDAP (ADACEL) 2019-06-09 Completed University of VACCINE 00:00:00 [facility] [facility] TDAP (ADACEL) 2019-06-09 Completed University of VACCINE 00:00:00 [facility] [facility] TDAP (ADACEL) 2019-06-09 Completed University of VACCINE 00:00:00 [facility] [facility] TDAP (ADACEL) 2019-06-09 Completed University of VACCINE 00:00:00 [facility] [facility] TDAP (ADACEL) 2019-06-09 Completed University of VACCINE 00:00:00 [place] [facility] TDAP (ADACEL) 2019-06-09 Completed University of VACCINE 00:00:00 [place] [facility] TDAP (ADACEL) 2019-06-09 Completed University of VACCINE 00:00:00 [place] [facility] TDAP (ADACEL) 2019-06-09 Completed University of VACCINE 00:00:00 [place] [facility] TDAP (ADACEL) 2019-06-09 Completed University of VACCINE 00:00:00 [place] [facility] TDAP (ADACEL) 2019-06-09 Completed University of VACCINE 00:00:00 [place] [facility] TDAP (ADACEL) 2019-06-09 Completed University of VACCINE 00:00:00 [place] [facility] TDAP (ADACEL) 2019-06-09 Completed University of VACCINE 00:00:00 [facility] [facility] TDAP (ADACEL) 2019-06-09 Completed University of VACCINE 00:00:00 [facility] [facility] TDAP (ADACEL) 2019-06-09 Completed University of VACCINE 00:00:00 [facility] [facility] TDAP (ADACEL) 2019-06-09 Completed University of VACCINE 00:00:00 [facility] [facility] TDAP (ADACEL) 2019-06-09 Completed University of VACCINE 00:00:00 [place] [facility] TDAP (ADACEL) 2019-06-09 Completed University of VACCINE 00:00:00 [place] [facility] TDAP (ADACEL) 2019-06-09 Completed University of VACCINE 00:00:00 [facility] [facility] TDAP (ADACEL) 2019-06-09 Completed University of VACCINE 00:00:00 [facility] [facility] TDAP (ADACEL) 2019-06-09 Completed University of VACCINE 00:00:00 [place] [facility] TDAP (ADACEL) 2019-06-09 Completed University of VACCINE 00:00:00 [place] [facility] TDAP (ADACEL) 2019-06-09 Completed University of VACCINE 00:00:00 [place] [facility] TDAP (ADACEL) 2019-06-09 Completed University of VACCINE 00:00:00 [place] [facility] TDAP (ADACEL) 2019-06-09 Completed University of VACCINE 00:00:00 [place] [facility] TDAP (ADACEL) 2019-06-09 Completed University of VACCINE 00:00:00 [place] [facility] TDAP (ADACEL) 2019-06-09 Completed University of VACCINE 00:00:00 [facility] [facility] TDAP (ADACEL) 2019-06-09 Completed University of VACCINE 00:00:00 [facility] TDAP (ADACEL) 2019-06-09 Completed [facility] VACCINE 00:00:00 [facility] Vital Signs Vital Name Observation Time Observation Value Comments Source Systolic blood 2022-05-08 23:02:00 124 mm[Hg] Univer sity of pressure [facility] Diastolic blood 2022-05-08 23:02:00 85 mm[Hg] Unive rsity of pressure [facility] Heart rate 2022-05-08 22:57:00 123 /min Universi ty of [facility] Body temperature 2022-05-08 22:57:00 37 Sana Univ ersity of [facility] Respiratory rate 2022-05-08 22:57:00 17 /min Univ ersity of [facility] Body height 2022-05-08 22:57:00 165.1 cm Universi ty of [facility] Body weight 2022-05-08 22:57:00 76.431 kg Universi ty of [facility] BMI 2022-05-08 22:57:00 28.04 kg/m2 Universi ty of [place] [facility] [place] Oxygen saturation in 2022-05-08 22:57:00 98 /min University of Arterial blood by [facility] kyra Pulse oximetry Branch Systolic blood 2021-12-19 17:45:00 127 mm[Hg] Univer sity of [facility] Diastolic blood 2021-12-19 17:45:00 84 mm[Hg] Unive rsity of [facility] Heart rate 2021-12-19 17:45:00 100 /min Universi ty of [place] [facility] Body height 2021-12-19 17:45:00 165.1 cm Universi ty of [place] [facility] Body weight 2021-12-19 17:45:00 71.668 kg Universi ty of [place] [facility] BMI 2021-12-19 17:45:00 26.29 kg/m2 Universi ty of [facility] [facility] Oxygen saturation in 2021-12-19 17:45:00 100 /min University of Arterial blood by [facility] kyra Pulse oximetry Branch Systolic (mm Hg) 2022-07-08 16:03:00 Gu[place]me rial [place] Diastolic (mm Hg) 2022-07-08 16:03:00 Mem orial [place] Heart Rate 2022-07-08 16:03:00 [facility] Height 2022-07-08 16:03:00 5 [ft_i] [facility] Weight 2022-07-08 16:03:00 [facility] BMI Calculated 2022-07-08 16:03:00 Memori al [place] Systolic blood 2022-06-24 16:08:00 111 mm[Hg] Univer sity of pressure [facility] Diastolic blood 2022-06-24 16:08:00 81 mm[Hg] Unive rsity of [facility] Heart rate 2022-06-24 16:08:00 113 /min [facility] Respiratory rate 2022-06-24 16:08:00 18 /min [facility] Body height 2022-06-24 16:08:00 165.1 cm [facility] Body weight 2022-06-24 16:08:00 77.111 kg [facility] BMI 2022-06-24 16:08:00 28.29 kg/m2 [facility] Systolic (mm Hg) 2022-06-03 15:30:00 Guilherme rial [place] Diastolic (mm Hg) 2022-06-03 15:30:00 Mem orial [place] Heart Rate 2022-06-03 15:30:00 [facility] Height 2022-06-03 15:30:00 5 [ft_i] [facility] Weight 2022-06-03 15:30:00 [facility] BMI Calculated 2022-06-03 15:30:00 Memori al [place] Systolic (mm Hg) 2022-05-20 16:17:00 Guilherme rial [place] Diastolic (mm Hg) 2022-05-20 16:17:00 Mem orial [place] Heart Rate 2022-05-20 16:17:00 [facility] Height 2022-05-20 16:17:00 5 [ft_i] [facility] Weight 2022-05-20 16:17:00 [facility] BMI Calculated 2022-05-20 16:17:00 Memori al [place] Systolic blood 2022-05-08 23:02:00 124 mm[Hg] Univer sity of pressure [facility] Diastolic blood 2022-05-08 23:02:00 85 mm[Hg] Unive rsity of pressure [place] [facility] Heart rate 2022-05-08 22:57:00 123 /min Universi ty of [place] [facility] Body temperature 2022-05-08 22:57:00 37 Sana Univ ersity of [place] [facility] Respiratory rate 2022-05-08 22:57:00 17 /min Univ ersity of [place] [facility] Body height 2022-05-08 22:57:00 165.1 cm Universi ty of [place] [facility] Body weight 2022-05-08 22:57:00 76.431 kg Universi ty of [place] [facility] BMI 2022-05-08 22:57:00 28.04 kg/m2 Universi ty of [place] [facility] Oxygen saturation in 2022-05-08 22:57:00 98 /min University of Arterial blood by [facility] Pulse oximetry Branch Systolic blood 2021-12-19 17:45:00 127 mm[Hg] Univer sity of pressure [place] [facility] Diastolic blood 2021-12-19 17:45:00 84 mm[Hg] Unive rsity of pressure [place] [facility] Heart rate 2021-12-19 17:45:00 100 /min Universi ty of [place] [facility] Body height 2021-12-19 17:45:00 165.1 cm Universi ty of [place] [facility] Body weight 2021-12-19 17:45:00 71.668 kg Universi ty of [place] [facility] BMI 2021-12-19 17:45:00 26.29 kg/m2 Universi ty of [place] [facility] Oxygen saturation in 2021-12-19 17:45:00 100 /min University of Arterial blood by [facility] Pulse oximetry Branch Systolic (mm Hg) 2021-10-15 20:18:00 Guilherme sun [place] Diastolic (mm Hg) 2021-10-15 20:18:00 Mem orial [place] Heart Rate 2021-10-15 20:18:00 [facility] Respitory Rate 2021-10-15 20:18:00 Nola Rodriguez Height 2021-10-15 20:18:00 166.37 cm [facility] Weight 2021-10-15 20:18:00 [facility] BMI Calculated 2021-10-15 20:18:00 Memori al Timothy Systolic (mm Hg) 2021-08-05 14:46:00 Guilherme rial [place] Diastolic (mm Hg) 2021-08-05 14:46:00 Mem orial [facility] Heart Rate 2021-08-05 14:46:00 [facility] Respitory Rate 2021-08-05 14:46:00 Nola Ramosann Height 2021-08-05 14:46:00 167.64 cm [facility] Weight 2021-08-05 14:46:00 [facility] BMI Calculated 2021-08-05 14:46:00 Memphilipp al [place] Body temperature 2021-07-06 17:35:00 36.83 [facility]ana [facility] Respiratory rate 2021-07-06 17:35:00 14 /min [facility] Weight 2021-07-01 14:17:00 [facility] Systolic (mm Hg) 2021-07-01 14:17:00 Guilherme rial [place] Diastolic (mm Hg) 2021-07-01 14:17:00 Mem orial [facility] Heart Rate 2021-07-01 14:17:00 [facility] Respitory Rate 2021-07-01 14:17:00 Nola Ramosann Procedures Procedure Date / Time Performing Clinician Source Performed ASSIGNMENT OF BENEFITS 2022-06-24 16:50:15 Doctor Unassigned, [facility] Name Medical Branch ASSIGNMENT OF BENEFITS 2022-06-24 16:07:54 Doctor Unassigned, [facility] Name Medical Branch CONSENT/REFUSAL FOR 2022-06-24 16:07:37 Doctor Unassigned, [facility] DIAGNOSIS AND TREATMENT [place] [facility] CONSENT/REFUSAL FOR 2022-06-24 16:07:37 Doctor Unassigned, [facility] DIAGNOSIS AND TREATMENT [place] [facility] AUTHORIZATION FOR RELEASE 2022-04-01 06:01:00 Doctor Rangel, [facility] [place] [facility] AUTHORIZATION FOR RELEASE 2022-04-01 06:01:00 Doctor Unasslakeisha, [facility] Name Medical Branch CBC WITH DIFF 2021-12-19 19:11:00 Sujata Santiago [place] [facility] COMP. METABOLIC PANEL 2021-12-19 19:11:00 Sujata Santiago [facility] ([id number]) [facility] GLYCOSYLATED HEMOGLOBIN 2021-12-19 19:11:00 Sujata Santiago [facility] (A1C) [facility] THYROID STIMULATING 2021-12-19 19:11:00 Sujata Santiago [facility] HORMONE [facility] Branch TRIIODOTHYRONINE 2021-12-19 19:11:00 Pamela Sujata [facility] FREE T4 2021-12-19 19:11:00 Sujata Santiago [place] [facility] TSH RECEPTOR ANTIBODY 2021-12-19 19:11:00 Santiago Harris [facility] (TRAB) [facility] Branch COMPREHENSIVE 2021-12-12 20:14:00 Sujata Santiago [facility] METABOLIC$PANEL W/EGFR-Q [facility] CBC (INCLUDES DIFF/PLT)-Q 2021-12-12 20:14:00 [facility]-Q 2021-12-12 20:14:00 Sujata Santiago [facility] HEMOGLOBIN A1C-Q 2021-12-12 20:14:00 Pamela Sujata [facility] POCT URINALYSIS 2021-12-12 19:20:00 Pamela Sujata [facility] URINE CULTURE 2021-12-12 19:19:00 Sujata Santiago [facility] HB ECG ROUTINE & RHYTHM 2021-12-12 17:59:04 Sujata Snatiago [facility] STRIP [facility] Tubal ligation<sup>2</sup> Memor ial [facility] Knee joint [facility] operation<sup>1</sup> Encounters Start End Encounter Admission Attending Care Care Encounter Source Date/Time Date/Time Type Type Clinicians Facility Department ID 2021-02-27 Outpatient [facility] [id number] Univers 18:24:20 [facility] 2022-08-19 2022-08-19 Outpatient BUCKY LAWLER [id number] Memoria 11:30:00 11:30:00 10 vanessa Aguirre 2022-07-19 2022-07-19 Donald Le [facility] [id number] Univers 00:00:00 00:00:00 C HEALTH [id number] it y of [place] 4.2.7.2.686 Vicente as RONALD?BLEA [id number] Ar jacob ELLISON [address] [place] [address] MEDICAL OFFICE BUILDING 2022-07-08 2022-07-09 Outpatient MHIE MNA [id number] Memoria 15:45:00 05:59:59 Neurology 09 l Kizzy Aguirre 2022-07-09 2022-07-09 [facility] [id number] Univers 00:00:00 00:00:00 SUJATA bangura [facility] 2022-07-08 2022-07-08 Outpatient GOOD BaumanNVHETAHER MISCHER [id number] 09:45:00 23:59:59 [place] 09 Eduar 2022-07-08 2022-07-08 Outpatient MHIE MHIE [id number] Memoria 09:45:00 09:45:00 09 l Timothy 2022-07-06 2022-07-06 Moises Harris, 1.2.840.2 [id number] Univers 00:00:00 00:00:00 Santiago Rose 08058.1.1 ity of 3.104.2.7 [place] .3.156926 Medica [address] 2022-06-24 2022-06-24 Outpatient R VANITA LUCIANO [facility] [id number] Univers 10:15:00 10:58:05 [facility] 2022-[facility]-24 2022-06-24 Orders Doctor 1.2.840.2 [id number] Univers 00:00:00 00:00:00 Only Unassigned, 09002.1.1 ity of [place] 3.104.2.7 [place] .3.962263 Medica l .8 [place] 2022-06-24 2022-06-24 Travel 1.2.840.1 [id number] Univers 00:00:00 00:00:00 55069.1.1 350.1.13.10 ity of 3.104.2.7 4.2.7.3.698 [place] .3.797908 084.8 Medica l .8 [place] 2022-06-21 2022-06-21 Refill Harris, 1.2.840.7 [id number] Univers 00:00:00 00:00:00 Santiago Rose 24612.1.1 ity of 3.104.2.7 [place] .3.838891 Medica l .8 [place] 2022-06-21 2022-06-21 Refill Donald Menendez 1.2.840.5 [id number] Univers 00:00:00 00:00:00 C 17907.1.1 ity of 3.104.2.7 [place] .3.335399 Medica l .8 [place] 2022-06-21 2022-06-21 Refill Doctor 1.2.840.6 [id number] Univers 00:00:00 00:00:00 Unassigned, 90436.1.1 ity of [place] 3.104.2.7 [place] .3.530001 Medica l .8 [place] 2022-06-19 2022-06-19 Ambulatory MHIE MNA [id number] Memoria 15:15:00 15:15:00 Pre-Reg Neurology 07 vanessa Blackwellaugust Mossann 2022-06-19 2022-06-19 Outpatient MHIE MHIE [id number] Memoria 09:15:00 09:15:00 Zofia Aguirre 2022-06-19 2022-06-[address] [facility] [id number] 09:15:00 09:15:00 [place] Zofia Eduar 2022-06-08 2022-06-08 Refill Doctor 1.2.840.7 [id number] Univers 00:00:00 00:00:00 Unassigned, 25851.1.1 ity of [place] 3.104.2.7 [place] .3.539698 Medica l .8 [place] 2022-06-03 2022-06-04 Outpatient MHIE MNA [id number] Memoria 15:30:00 05:59:59 Neurology 08 vanessa Blackwell Timothy 2022-06-03 2022-06-03 Outpatient GOOD BaumanMISCHER MHMISCHER [id number] 09:30:00 23:59:59 [place] 08 Eduar 2022-06-03 2022-06-03 Outpatient MHIE MHIE [id number] Memoria 09:30:00 09:30:00 08 vanessa Aguirre 2022-06-03 2022-06-03 Moises Menendez Donald 1.2.840.1 [id number] Univers 00:00:00 00:00:00 C 43517.1.1 ity of 3.104.2.7 [place] .3.722037 Medica l .8 [place] 2022-06-01 2022-06-01 Donald Le 1.2.840.1 [id number] Univers 00:00:00 00:00:00 C 19978.1.1 ity of 3.104.2.7 [place] .3.525437 Medica l .8 [place] 2022-05-20 2022-05-21 Outpatient MHIE MNA [id number] Memoria 16:00:00 05:59:59 Neurology 06 l Kizzy Aguirre 2022-05-20 2022-05-20 Outpatient VENITA BaumanSCHER MHMISCHER [id number] 10:00:00 23:59:59 Darien 06 Eduar 2022-05-20 2022-05-20 Outpatient MHIE MHIE [id number] Memoria 10:00:00 10:00:00 06 vanessa Aguirre 2022-05-18 2022-05-20 Outside MHIE MNA [id number] Memoria 16:28:02 05:59:59 Medical Neurology 00 l Records Kizzy Aguirre 2022-05-18 2022-05-19 Outpatient MHMISCHER MHMISCHER [id number] 10:28:02 23:59:59 2022-05-13 2022-05-13 Moises Harris 1.2.840.2 [id number] Univers 00:00:00 00:00:00 Santiago H 50162.1.1 ity of 3.104.2.7 [place] .3.224985 Medica l .8 [place] 2022-05-082022-05-08 Urgent Unknown, Attending 1.2.840.1 [id number] Univers 17:00:00 17:49:21 Donald Roche 32261.1.1 ity of 3.104.2.7 [place] .3.692848 Medica l .8 [place] 2022-05-08 2022-05-08 Outpatient R III, [facility] [id number] Univers 17:00:00 17:00:00 DONALD ity of [facility] 2022-05-08 2022-05-08 Travel 1.2.840.1 1.2.625.012 5024 [id number] Univers 00:00:00 00:00:00 36888.1.1 350.1.13.10 ity of 3.104.2.7 [place].698 [place].0364[place] 084.8 Medica l .8 [place] 2022-04-03 2022-04-03 Telephone Pamela, 1.2.840.6 [id number] Univers 00:00:00 00:00:00 Sujata 57728.1.1 ity of 3.104.2.7 [place] .3.185562 Medica l .8 [place] 2022-04-01 2022-04-01 Orders Doctor 1.2.840.7 [id number] Univers 00:00:00 00:00:00 Only Unassigned, 40436.1.1 ity of [place] 3.104.2.7 [place] .3.362083 Medica l .8 [place] 2022-03-13 2022-03-13 Refill Kimberly, 1.2.840.2 [id number] Univers 00:00:00 00:00:00 Santiago Rose 18037.1.1 ity of 3.104.2.7 [place] .3.916600 Medica l .8 [place] 2022-02-09 2022-02-09 Outpatient R WILFRIDO, [facility] [id number] Univers 09:30:00 10:24:48 ROSAURA yueny o f [facility] 2022-02-03 2022-02-03 Outpatient R JARROD DEMARCO [facility] [id number] Univers 10:00:00 10:00:00 ity of [facility] 2022-01-14 2022-01-14 Outpatient R SELF, [facility] [id number] Univers 10:15:00 10:15:00 ROSAURA yueny o f [facility] 2021-12-22 2021-12-22 Telephone Pamela, 1.2.840.4 [id number] Univers 00:00:00 00:00:00 Sujata 77118.1.1 ity of 3.104.2.7 [place] .3.396510 Medica l .8 [place] 2021-12-22 2021-12-22 Telephone Pamela, 1.2.840.1 [id number] [id number] Univers 00:00:00 00:00:00 Sujata 82709.1.1 ity of 3.104.2.7 [place] .3.155681 Medica l .8 [place] 2021-12-19 2021-12-19 Maintenance Planning Clerk Sujata Santiago 1.2.840.1 [id number] Univers 14:00:00 14:20:44 Visit Lab, [place] 46648.1.1 ity of 3.104.2.7 [place] .3.247270 Medica l .8 [place] 2021-12-19 2021-12-19 Maintenance Planning Clerk Sujata Santiago 1.2.840.1 [id number] Univers 14:00:00 14:20:44 Visit Lab, [place] 68802.1.1 ity of 3.104.2.7 [place] .3.994658 Medica l .8 [place] 2021-12-19 2021-12-19 Maintenance Planning Clerk Sujata Santiago 1.2.840.1 [id number] Univers 14:00:00 14:20:44 Visit Lab, [place] - Db 37790.1.1 ity of 3.104.2.7 [place] .3.244305 Medica l .8 [place] 2021-12-19 2021-12-19 Outpatient R PMAELA, [facility] [id number] Univers 14:00:00 14:00:00 SUJATA bangura of [facility] 2021-12-19 2021-12-19 Office Kimberly, 1.2.840.7 [id number] [facility] 13:00:00 13:52:53 Visit Santiago Rose 24386.1.1 ity of 3.104.2.7 [place] .3.259661 Medica l .8 [place] 2021-12-19 2021-12-19 Outpatient R KIMBERLY, [facility] [id number] [facility] 13:00:00 13:52:53 SANTIAGO bangura [facility] 2021-12-19 2021-12-19 Travel 1.2.840.1 1.2.709.524 9327 [id number] Univers 00:00:00 00:00:00 58233.1.1 350.1.13.10 ity of 3.104.2.7 [place].3.698 [place] .3.6023[place] 084.8 Medica l .8 [place] 2021-12-19 2021-12-19 Travel 1.2.840.1 1.2.576.160 9686 2997 Univers 00:00:00 00:00:00 17296.1.1 350.1.13.10 ity of 3.104.2.7 4.[place].7.3.698 [place] .3.261355 084.8 Medica l .8 [place] 2021-12-16 2021-12-16 Ambulatory nullFlavo MNA [id number] Memoria 15:45:00 15:45:00 Pre-Reg r Neurology 05 l Kizzy Aguirre 2021-12-16 2021-12-16 Outpatient BUCKY LAWLER [id number] Memoria 10:45:00 10:45:00 05 vanessa Aguirre 2021-12-16 2021-12-16 Outpatient HUSAM BaumanSCHRYAN [id number] 10:45:00 10:45:00 D[place]en Witt 2021-12-16 2021-12-16 Travel 1.2.840.1 1.2.313.086 1275 [id number] Univers 00:00:00 00:00:00 66880.1.1 350.1.13.10 ity of 3.104.2.7 4.[place].7.3.698 [place] .3.289247 084.8 Medica l .8 Branch 2021-12-16 2021-12-16 Travel 1.2.840.1 1.2.595.928 6638 [id number] Univers 00:00:00 00:00:00 53708.1.1 350.1.13.10 ity of 3.104.2.7 4.[place].7.3.698 [place] .3.971168 084.8 Medica l .8 Branch 2021-12-15 2021-12-15 Telephone Cotta, 1.2.840.8 [id number] [id number] Univers 00:00:00 00:00:00 Sujata 98029.1.1 ity of 3.104.2.7 [place] .3.184170 Medica l .8 [place] 2021-12-15 2021-12-15 Telephone Cheta, 1.2.840.5 [id number] [id number] Univers 00:00:00 00:00:00 Sujata 87733.1.1 ity of 3.104.2.7 [place] .3.540913 Medica l .8 [place] 2021-12-15 2021-12-15 Telephone Cotta, 1.2.840.4 [id number] [id number] Univers 00:00:00 00:00:00 Sujata 62213.1.1 ity of 3.104.2.7 [place] .3.171846 Medica l .8 [place] 2021-12-12 2021-12-12 Outpatient R PAMELA [facility] [id number] [facility] 13:00:00 14:10:23 SUJATA ity of [facility] 2021-12-12 2021-12-12 Office Pamela, 1.2.840.5 [id number] Univers 13:00:00 14:10:23 Visit Sujata 59498.1.1 ity of 3.104.2.7 [place] .3.439341 Medica l .8 [place] 2021-12-12 2021-12-12 [facility] [id number] Univers 13:00:00 14:10:23 SUJATA ity of [facility] 2021-12-12 2021-12-12 Office Cotta, 1.2.840.5 [id number] Univers 13:00:00 14:10:23 Visit Sujata 11444.1.1 ity of 3.104.2.7 [place] .3.559671 Medica l .8 Branch 2021-12-12 2021-12-12 Office Cotta, 1.2.840.8 [id number] Univers 13:00:00 14:10:23 Visit Sujata 09463.1.1 ity of 3.104.2.7 [place] .3.292650 Medica l .8 Branch 2021-12-12 2021-12-12 Abstract Cotta, 1.2.840.4 [id number] Univers 00:00:00 00:00:00 Sujata 41627.1.1 ity of 3.104.2.7 [place] .3.137302 Medica l .8 Branch 2021-12-12 2021-12-12 Orders Cotta, 1.2.840.6 [id number] Univers 00:00:00 00:00:00 Only Sujata 95223.1.1 ity of 3.104.2.7 [place] .3.657336 Medica l .8 Branch 2021-12-12 2021-12-12 Orders Cotta, 1.2.840.8 [id number] Univers 00:00:00 00:00:00 Only Sujata 76397.1.1 ity of 3.104.2.7 [place] .3.342535 Medica l .8 Branch 2021-12-12 2021-12-12 Travel 1.2.840.1 1.2.988.409 9983 3378 Univers 00:00:00 00:00:00 41924.1.1 350.1.13.10 ity of 3.104.2.7 4.2.7.3.698 [place] .3.391820 084.8 Medica l .8 Branch 2021-12-12 2021-12-12 Abstract Cotta, 1.2.840.7 [id number] 1923 Univers 00:00:00 00:00:00 Sujata 31955.1.1 ity of 3.104.2.7 [place] .3.411975 Medica l .8 Belva 2021-12-12 2021-12-12 Orders Chetjonathan, 1.2.840.9 [id number] Univers 00:00:00 00:00:00 Only Sujata 84518.1.1 ity of 3.104.2.7 [place] .3.018873 Medica l .8 Bel[place] 2021-12-12 2021-12-12 Travel 1.2.840.1 1.2.183.893 9624 [id number] Univers 00:00:00 00:00:00 20743.1.1 350.1.13.10 ity of 3.104.2.7 4.[place].7.3.698 [place]3.504574 084.8 Medica l .8 [place] 2021-12-12 2021-12-12 Abstract Pamela, 1.2.840.4 [id number] 3 Univers 00:00:00 00:00:00 Sujata 99399.1.1 ity of 3.104.2.7 [place] .3.248465 Medica l .8 [place] 2021-11-26 2021-11-26 Outpatient R PAMELA [facility] [id number] Univers 10:00:00 10:00:00 SUJATA ity of [facility] 2021-11-17 2021-11-17 Abstract Pamela [facility] 1.2.840.114 [id number] Univers 00:00:00 00:00:00 Sujata HEALTH 350.1.13.10 it y of [place] 4.2.7.2.686 Vicente as RONALD?BLEA [phone] Ar jacob ELLISON [address] [place] [address] MEDICAL OFFICE BUILDING 2021-11-17 2021-11-17 Abstract Pamela, 1.2.840.1 [id number] Univers 00:00:00 00:00:00 Sujata 34293.1.1 ity of 3.104.2.7 [place] .3.731724 Medica l .8 Bel[place] 2021-11-17 2021-11-17 Abstract Pamela, 1.2.840.5 [id number] [facility] 00:00:00 00:00:00 Sujata 93356.1.1 ity of 3.104.2.7 [place] .3.682306 Medica l .8 Belva 2021-10-15 2021-10-16 Outpatient nullFlavo MNA [id number] Memoria 20:00:00 04:59:59 r Neurology 04 l Kizzy Timothy 2021-10-15 2021-10-15 Outpatient Merna MHMISCHER MHMISCHER [id number] 15:00:00 23:59:59 Darien 04 [facility] 2021-10-15 2021-10-15 Outpatient MHIE MHIE [id number] Memoria 15:00:00 15:00:00 04 [facility] 2021-09-16 2021-09-16 Ambulatory nullFlavo MNA [id number] Memoria 16:45:00 16:45:00 Pre-Reg r Neurology 03 l Kizzy [facility] 2021-09-16 2021-09-16 Outpatient MHIE MHIE [id number] Memoria 11:45:00 11:45:00 03 vanessa Aguirre 2021-09-16 2021-09-16 Outpatient GOOD BaumanMISCHER MHMISCHER [id number] 11:45:00 11:45:00 Darien 03 Eduar 2021-09-03 2021-09-03 Outpatient VANITA BRIZUELA [facility] [id number] Univers 16:15:00 16:47:06 VANITA LUCIANO kimmie [facility] 2021-09-03 2021-09-03 Outpatient VANITA BRIZUELA [facility] [id number] Univers 16:15:00 16:15:00 VANITA LUCIANO kimmie [facility] 2021-09-03 2021-09-03 [facility] [id number] Univers 16:15:00 16:15:00 VANITA LUCIANO kimmie [facility] 2021-09-03 2021-09-03 Travel 1.2.840.1 1.2.502.086 [id number] Univers 00:00:00 00:00:00 48323.1.1 350.1.13.10 ity of 3.104.2.7 [place].7.3.698 [place] .3.774068 084.8 Medica l .8 [place] 2021-08-05 2021-08-06 Outpatient nullFlavo MNA [id number] Memoria 14:45:00 04:59:59 r Neurology 02 l Kizzy Aguirre 2021-08-05 2021-08-05 [facility] [id number] 09:45:00 23:59:59 [place] Bettina Witt 2021-08-05 2021-08-05 Outpatient MHIE IE [id number] Memoria 09:45:00 09:45:00 02 vanessa MossTimothy 2021-07-28 2021-07-28 Outpatient R SELF, [facility] [id number] Univers 11:00:00 11:00:00 ROSAURA yuenkimmie o [facility] 2021-07-06 2021-07-06 Outpatient R ZHOU, [facility] [id number] Univers 11:40:00 11:58:03 VANITA bangura o [facility] 2021-07-06 2021-07-06 Urgent Zhou, 1.2.840.9 [id number] Univers 11:40:00 11:58:03 Care Vanita Paredes 24242.1.1 i ty of 3.104.2.7 [place] .3.037167 Medica l .8 [place] 2021-07-06 2021-07-06 Travel 1.2.840.1 1.2.742.430 0666 4740 Univers 00:00:00 00:00:00 21576.1.1 350.1.13.10 ity of 3.104.2.7 [place]7.3.698 [place] .3.378319 084.8 Medica l .8 [place] 2021-07-01 2021-07-02 Outpatient nullFlavo MNA [id number] Memoria 14:15:00 05:59:59 r Neurology 01 l [facility] 2021-07-01 2021-07-01 Outpatient Merna, MHMISCHER MHMISCHER [id number] 08:15:00 23:59:59 [place] 01 Eduar 2021-07-01 2021-07-01 Outpatient MHIE MHIE [id number] Memoria 08:15:00 08:15:00 01 vanessa Aguirre 2021-06-25 2021-06-26 Outpatient nullFlavo MNA [id number] Memoria 20:45:00 05:59:59 r Neurology 00 l Kizzy Aguirre 2021-06-25 2021-06-25 Outpatient Merna, MHMISCHER MHMISCHER [id number] 14:45:00 23:59:59 [place] 00 Eduar 2021-06-25 2021-06-25 Outpatient MHIE MHIE [id number] Memoria 14:45:00 14:45:00 00 l [facility] 2021-06-02 2021-06-02 Outpatient R SELF, [facility] [id number] Univers 09:30:00 10:39:22 ROSAURA bangura o f [facility] 2021-06-02 2021-06-02 Orders Doctor 1.2.840.8 [id number] Univers 00:00:00 00:00:00 Only Unassigned, 28374.1.1 ity of [place] 3.104.2.7 [place] .3.203155 Medica .8 [place] 2021-06-02 2021-06-02 Travel 1.2.840.1 1.2.517.107 3756 [id number] Univers 00:00:00 00:00:00 10764.1.1 350.1.13.10 ity of 3.104.2.7 4.[place].7.3.698 [place] .3.254551 084.8 Medica l .8 [place] 2021-05-31 2021-05-31 Travel 1.2.840.1 1.2.070.950 9072 [id number] Univers 00:00:00 00:00:00 03076.1.1 350.1.13.10 ity of 3.104.2.7 [place].7.3.698 [place] .3.898712 084.8 Medica l .8 [place] 2021-04-01 2021-04-01 Outpatient R ADUM, [facility] [id number] Univers 13:30:00 13:30:[address] [facility] 2021-03-05 2021-03-05 Outpatient R JADA, [facility] [id number] Univers 14:30:00 14:30:[address] [facility] 2021-02-20 2021-02-20 Outpatient R FISH, JARROD [facility] [id number] Univers 15:30:00 15:30:00 [facility] 2020-12-30 2020-12-30 Outpatient R SELF, [facility] [id number] Univers 11:00:00 11:00:00 ROSAURA schulz [facility] 2020-12-09 2020-12-09 Outpatient R SELF, [facility] [id number] Univers 08:45:00 08:45:00 ROSAURA schulz [facility] 2020-11-11 2020-11-11 Outpatient R SELF, [facility] [id number] Univers 08:45:00 08:45:00 ROSAURA schulz [facility] 2020-10-23 2020-10-23 Outpatient R SELF, [facility] [id number] Univers 14:30:00 14:30:00 ROSAURA schulz [facility] 2020-10-23 2020-10-23 Travel 1.2.840.1 1.2.414.591 [id number] [id number] Univers 00:00:00 00:00:00 97559.1.1 350.1.13.10 ity of 3.104.2.7 [place].3.698 [place] .3.775134 084.8 Medica l .8 [place] 2020-07-23 2020-07-23 Patient Valdemar, 1.2.840.2 [id number] Univers 00:00:00 00:00:00 Outreach Lloyd 43224.1.1 ity of [place] 3.104.2.7 [place] .3.003340 Medica l .8 [place] 2020-06-13 2020-06-13 Outpatient [facility] [id number] Univers 00:00:00 00:00:00 LARA bangura [facility] 2020-05-10 2020-05-10 [facility] 1.2.840.114 [id number] Univers 11:40:00 23:59:00 Encounter Lara [facility] 350.1.13.10 [place] [phone] [place] [id number] [place] ([facility]) 2020-05-10 2020-05-10 Office Lara Antunez [facility] 1.2.840.11 [id number] Univers 10:52:40 11:07:40 Visit Chris, Rangel [place] 350.1.13.10 [place] [id number] [address] Office Building 2020-05-10 2020-05-10 Outpatient [facility] [id number] Univers 10:45:00 10:45:00 RANGEL bangura [facility] 2020-04-11 2020-04-11 Office [facility] 1.2.480.631 [id number] Univers 14:34:29 15:07:41 Visit Don [facility] 350.1.13.10 it y of Surgical 4.2.7.2.686 Vicente as Specialti [phone] Ar dical [address] [facility] 2020-04-11 2020-04-11 Outpatient [facility] [id number] Univers 14:45:00 14:45:00 DON bangura [facility] 2020-04-09 2020-04-09 Orders Doctor YAIMA 1.2.840.114 [id number] Univers 00:00:00 00:00:00 Only Unassigned, DANI 350.1.13.10 ity of [place] [facility] 4.2.7.2.686 Vicente as [phone] [place] [address] Branch 2020 2020 Outpatient [facility] [id number] Univers 09:00:00 09:00:00 RANGEL sveta [facility] 2020-03-18 2020-03-18 Orders Doctor YAIMA 1.2.840.114 [id number] Univers 00:00:00 00:00:00 Only Unassigned, DANI 350.1.13.10 ity of [place] [facility] 4.2.7.2.686 Vicente as [phone] [address] 2020-02-28 2020-02-28 Outpatient R SELF, [facility] [id number] Univers 13:00:00 13:00:00 ROSAURA hummel [facility] 2020-01-24 2020-01-24 Outpatient R SELF, [facility] [id number] Univers 16:00:00 16:00:00 ROSAURA hummel [facility] 2019-12-27 2019-12-27 Outpatient R JORDAN, [facility] [id number] Univers 16:00:00 16:00:00 ROSANNA ity [facility] 2019-12-11 2019-12-11 Outpatient R SELF, [facility] [id number] Univers 09:30:00 09:30:00 ROSAURA hummel [facility] 2019-10-25 2019-10-25 Outpatient R RAMON, [facility] [id number] Univers 14:30:00 14:30:00 MARKUS sveta [facility] 2019-10-02 2019-10-02 Telephone Ermelinda, 1.2.840.0 [id number] Univers 00:00:00 00:00:00 Leelee 44769.1.1 ity of 3.104.2.7 [place] .3.453487 Medica l .8 [place] 2019-09-28 2019-09-28 Outpatient R WADSWORTH, [facility] [id number] Univers 15:15:00 15:15:00 LEELEE bangura [facility] 2019-09-20 2019-09-20 Orders Doctor 1.2.840.0 [id number] Univers 00:00:00 00:00:00 Only Unassigned, 16370.1.1 ity of [place] 3.104.2.7 [place] .3.825243 Medica l .8 [place] 2019-09-14 2019-09-14 Outpatient R ERMELINDA, [facility] [id number] Univers 10:00:00 10:00:00 LEELEE ity of [facility] 2019-09-13 2019-09-13 Travel 1.2.840.1 1.2.948.674 [id number] Univers 00:00:00 00:00:00 09048.1.1 350.1.13.10 ity of 3.104.2.7 4.2.7.3.698 [place] .3.155783 084.8 Medica l .8 [place] 2019-09-09 2019-09-09 Telephone [place], 1.2.840.3 [id number] Univers 00:00:00 00:00:00 Leelee 70141.1.1 ity of 3.104.2.7 [place] .3.412285 Medica l .8 [place] 2019-09-08 2019-09-08 Maintenance Planning Clerk Leelee [place] 1.2.840.1 [id number] Univers 09:28:10 09:43:10 Visit 2, Adc Lab 32047.1.1 i ty of 3.104.2.7 [place] .3.560635 Medica l .8 [place] 2019-09-08 2019-09-08 Routine [place], 1.2.840.1 [id number] Univers 08:33:40 09:21:27 Leelee 55446.1.1 ity of Visit 3.104.2.7 [place] .3.315888 Medica l .8 [place] 2019-09-08 2019-09-08 Outpatient R WADSWORTH, [facility] [id number] Univers 08:30:00 08:30:00 LEELEE ity of [facility] 2019-09-08 2019-09-08 Orders Doctor 1.2.840.2 [id number] Univers 00:00:00 00:00:00 Only Unassigned, 09477.1.1 ity of [place] 3.104.2.7 [place] .3.400624 Medica l .8 [place] 2019-09-08 2019-09-08 Travel 1.2.840.1 1.2.852.110 9946 [id number] Univers 00:00:00 00:00:00 67748.1.1 350.1.13.10 ity of 3.104.2.7 4.[place].7.3.698 [place] .3.194765 084.8 Medica l .8 [place] 2019-09-07 2019-09-07 Outpatient R WADSWORTH, [facility] [id number] Univers 13:45:00 13:45:00 LEELEE ity of [facility] 2019-09-06 2019-09-06 Outpatient R RAMON, [facility] [id number] Univers 15:15:00 15:15:00 MARKUS ity of [facility] 2019-09-04 2019-09-04 Telephone [place], 1.2.840.0 [id number] Univers 00:00:00 00:00:00 Leelee 04488.1.1 ity of 3.104.2.7 [place] .3.767972 Medica l .8 [place] 2019-08-31 2019-08-31 Routine [place], 1.2.840.8 [id number] Univers 09:08:56 10:03:21 Leelee 24866.1.1 ity of Visit 3.104.2.7 [place] .3.147533 Medica l .[address] [place] [address] 2019-08-31 2019-08-31 Outpatient R WADSWORTH, [facility] [id number] Univers 08:30:00 08:30:00 LEELEE ity of [facility] 2019-08-31 2019-08-31 Telephone [place], 1.2.840.4 [id number] Univers 00:00:00 00:00:00 Leelee 61428.1.1 ity of 3.104.2.7 [place] .3.252359 Medica l .8 [place] 2019-08-21 2019-08-22 [facility] [place], 1.2.840.1 [id number] Univers 06:14:00 16:00:00 Encounter Kayli Mckeon 48953.1.1 it y of 3.104.2.7 [place] .3.339469 Medica l .8 Branch 2019-08-21 2019-08-21 Anesthesia Spike Lopes 1.2.840.5 [id number] Univers 18:39:00 19:35:00 Event Spike Wilkins 48314.1.1 ity of 3.104.2.7 [place] .3.576165 Medica l .8 Branch 2019-08-21 2019-08-21 Surgery [place], 1.2.840.0 [id number] Univers 18:15:00 19:35:00 Leelee 82729.1.1 ity of 3.104.2.7 [place] .3.353889 Medica l .8 Branch 2019-08-21 2019-08-21 Anesthesia Yasmany Holder 1.2.840.1 10 [id number] Univers 12:05:00 15:00:00 Event José Luis Chapman 48265.1.1 ity of 3.104.2.7 [place] .3.204722 Medica l .8 Branch 2019-08-21 2019-08-21 Travel 1.2.840.1 1.2.821.054 3410 [id number] Univers 00:00:00 00:00:00 56271.1.1 350.1.13.10 ity of 3.104.2.7 4.[place].3.698 [place] .3.280485 084.8 Medica l .8 Branch 2019-08-10 2019-08-17 Routine [place], 1.2.840.3 [id number] Univers 12:57:36 17:03:23 Leelee 27269.1.1 ity of Visit 3.104.2.7 [place] .3.155815 Medica l .8 Branch 2019-08-17 2019-08-17 Routine [place], 1.2.840.0 [id number] Univers 14:00:43 14:41:36 Leelee 62260.1.1 ity of Visit 3.104.2.7 [place] .3.662752 Medica l .8 Branch 2019-08-17 2019-08-17 Outpatient R ERMELINDA, [facility] [id number] Univers 14:00:00 14:00:00 LEELEE ity of [facility] 2019-08-17 2019-08-17 Travel 1.2.840.1 1.2.842.897 [id number] Univers 00:00:00 00:00:00 76060.1.1 350.1.13.10 ity of 3.104.2.7 [place]3.698 [place] .3.102970 084.8 Medica l .8 [place] 2019-08-10 2019-08-10 [facility] [id number] Univers 13:00:00 13:00:00 LEELEE ity [facility] 2019-08-07 2019-08-07 [facility] [id number] Univers 09:30:00 09:30:00 MENDENHALL itkimmie [facility] 2019-08-04 2019-08-04 Patient [facility] 1.2.840.114 [id number] Univers 00:00:00 00:00:00 Secure Msg Leelee [place] 350.1.13.10 ity of [place] 4.2.7.2.686 Sirisha clayton Professio [phone] Ar dical nal [address] [facility] 2019-08-03 2019-08-03 Routine Ermelinda, 1.2.840.5 [id number] Univers 07:53:27 17:32:17 Leelee 48008.1.1 ity of Visit 3.104.2.7 [place] .3.236514 Medica l .[address] [place] [address] 2019-08-03 2019-08-03 Maintenance Planning Clerk [place] Leelee 1.2.840.1 [id number] Univers 10:14:22 10:29:22 Visit 2, [facility] Lab 42535.1.1 i ty of 3.104.2.7 [place] .3.777465 Medica l .8 [place] 2019-08-03 2019-08-03 [facility] [id number] Univers 09:30:00 09:30:00 LEELEE ity [facility] 2019-08-03 2019-08-03 Orders Doctor 1.2.840.3 [id number] Univers 00:00:00 00:00:00 Only Unassigned, 32465.1.1 ity of [place] 3.104.2.7 [place] .3.307931 Medica l .8 [place] 2019-08-02 2019-08-02 Outpatient R RAMON, [facility] [id number] Univers 14:30:00 14:30:00 MARKUS ity of [facility] 2019-08-01 2019-08-01 Maintenance Planning Clerk Malissa, 1.2.840.3 [id number] Univers 10:42:29 11:27:29 Visit Prem Cervantes 03731.1.1 ity of 3.104.2.7 [place] .3.146304 Medica l [address] [place] [address] 2019-08-01 2019-08-01 Outpatient P [facility] [id number] Univers 10:30:00 10:30:00 ity of [facility] 2019-08-01 2019-08-01 Case Rosalina Warner 1.2.840.2 [id number] Univers 00:00:00 00:00:00 Management 73362.1.1 i ty of 3.104.2.7 [place] .3.322254 Medica l [address] [place] [address] 2019-07-27 2019-07-27 Patient [place], [facility] 1.2.840.114 [id number] Univers 00:00:00 00:00:00 Secure Msg Leeleekimmie Pérez 350.1.13.10 ity of [place] 4.2.7.2.686 Sirisha Pearceessio [id number] Ar dical nal 134 [facility] 2019-07-27 2019-07-27 Telephone [place], 1.2.840.7 [id number] Univers 00:00:00 00:00:00 Leelee 55869.1.1 ity of 3.104.2.7 [place] .3.304249 Medica l .8 [place] 2019-07-24 2019-07-24 Telephone [place], 1.2.840.4 [id number] Univers 00:00:00 00:00:00 Leelee 17629.1.1 ity of 3.104.2.7 [place] .3.447169 Medica l .8 [place] 2019-07-21 2019-07-21 Telephone [place], 1.2.840.3 [id number] Univers 00:00:00 00:00:00 Leelee 60707.1.1 ity of 3.104.2.7 [place] .3.848400 Medica l .8 [place] 2019-07-20 2019-07-20 Routine [place], 1.2.840.0 [id number] Univers 08:43:30 10:05:55 Leelee 98659.1.1 ity of Visit 3.104.2.7 [place] .3.943901 Medica l .8 [place] 2019-07-20 2019-07-20 Outpatient R ERMELINDA, [facility] [id number] Univers 08:45:00 08:45:00 LEELEE ity of [facility] 2019-07-20 2019-07-20 Orders Doctor 1.2.840.9 [id number] Univers 00:00:00 00:00:00 Only Unassigned, 09646.1.1 ity of [place] 3.104.2.7 [place] .3.392391 Medica l .8 [place] 2019-07-19 2019-07-19 Telephone [place], 1.2.840.0 [id number] Univers 00:00:00 00:00:00 Leelee 76918.1.1 ity of 3.104.2.7 [place] .3.339005 Medica l .8 [facility] 2019-07-10 2019-07-10 Maintenance Planning Clerk Nilesh Ramírez 1.2.840.6 [id number] Univers 10:35:42 11:18:43 Visit Prem Leonardo 30918.1.1 ity of 3.104.2.7 [place] .3.096846 Medica l .8 [facility] 2019-07-10 2019-07-10 Outpatient P DESIREE [facility] [id number] Univers 10:30:00 10:30:00 NILESH ity of [facility] 2019-07-10 2019-07-10 Telephone Wadsworth, 1.2.840.6 [id number] Univers 00:00:00 00:00:00 Leelee 61775.1.1 ity of 3.104.2.7 [place] .3.549318 Medica l .8 [facility] 2019-07-06 2019-07-06 Routine Wadsworth, 1.2.840.7 [id number] Univers 13:11:15 13:59:12 Leelee 97179.1.1 ity of Visit 3.104.2.7 [place] .3.692169 Medica l .8 [facility] 2019-07-06 2019-07-06 Outpatient R WADSWORTH, [facility] [id number] Univers 13:15:00 13:15:00 LEELEE ity [facility] 2019-07-06 2019-07-06 Orders Doctor 1.2.840.4 [id number] Univers 00:00:00 00:00:00 Only Unassigned, 05045.1.1 ity of [place] 3.104.2.7 [place] .3.716826 Medica l .8 Belva 2019-07-03 2019-07-03 Telephone Wadsworth, 1.2.840.4 [id number] Univers 00:00:00 00:00:00 Leelee 47057.1.1 ity of 3.104.2.7 [place] .3.823265 Medica l .8 [facility] 2019-06-27 2019-06-27 Outpatient [facility] [id number] Univers 11:15:00 11:15:00 RUBIN ity of [facility] 2019-06-13 2019-06-13 Refill Jaiden, 1.2.840.1 [id number] Univers 00:00:00 00:00:00 Melissa 32269.1.1 ity of 3.104.2.7 [place] .3.044779 Medica l .8 [facility] 2019-06-12 2019-06-12 Maintenance Planning Clerk Nilesh Ramírez 1.2.840.7 [id number] Univers 10:35:51 11:04:41 Visit Velasquez Koutrouvelis, Scott 10365.1.1 ity of 3.104.2.7 [place] .3.142810 Medica l .8 Branch 2019-06-10 2019-06-10 Telephone Wadsworth, 1.2.840.1 [id number] Univers 00:00:00 00:00:00 Leelee 77824.1.1 ity of 3.104.2.7 [place] .3.543512 Medica l .8 Branch 2019-06-09 2019-06-09 Routine Wadsworth, 1.2.840.3 [id number] Univers 08:50:40 10:51:19 Leelee 02293.1.1 ity of Visit 3.104.2.7 [place] .3.297298 Medica l .8 Branch 2019-06-09 2019-06-09 Maintenance Planning Clerk Wadsworth, Leelee 1.2.840.1 [id number] Univers 09:52:31 10:07:31 Visit Nina, [facility] 26997.1.1 ity of 3.104.2.7 [place] .3.340592 Medica l .8 Branch 2019-06-09 2019-06-09 Orders Doctor 1.2.840.0 [id number] Univers 00:00:00 00:00:00 Only Unassigned, 00940.1.1 ity of [place] 3.104.2.7 [place] .3.892695 Medica l .8 Belva 2019-05-15 2019-05-15 Maintenance Planning Clerk Desiree, 1.2.840.1 [id number] Univers 09:31:53 10:01:53 Visit Nilesh Hanna 00119.1.1 ity of 3.104.2.7 [place] .3.513744 Medica l .8 Branch 2019-05-11 2019-05-11 Routine Wadsworth, 1.2.840.0 [id number] Univers 08:29:58 09:39:30 Leelee 31408.1.1 ity of Visit 3.104.2.7 [place] .3.739862 Medica l .8 Branch 2019-02-07 2019-02-07 Routine Jada, 1.2.840.9 [id number] Univers 09:15:41 10:08:21 Rubin 06788.1.1 ity of Visit 3.104.2.7 [place] .3.502047 Medica l .8 Bel[facility] 2019-02-07 2019-02-07 Telephone Wadsworth, 1.2.840.5 [id number] Univers 00:00:00 00:00:00 Leelee 80077.1.1 ity of 3.104.2.7 [place] .3.304138 Medica l .8 [facility] 2019-02-02 2019-02-02 Nurse Leelee Wadsworth 1.2.840.1 [id number] Univers 08:52:25 10:51:58 Visit Nurse, [facility] 53548.1.1 ity of 3.104.2.7 [place] .3.264129 Medica l .8 Belva 2019-02-02 2019-02-02 Telephone Wadsworth, 1.2.840.8 [id number] Univers 00:00:00 00:00:00 Leelee 26439.1.1 ity of 3.104.2.7 [place] .3.469253 Medica l .8 Belva 2019-01-30 2019-01-30 Routine Melissa Hwang 1.2.840.1 [id number] Univers 14:05:18 14:57:54 Faculty, [facility] 45875.1.1 ity of Visit 3.104.2.7 [place] .3.254651 Medica l .8 Belva 2019-01-27 2019-01-27 Orders Doctor 1.2.840.[id number] [facility] Univers 00:00:00 00:00:00 Only Unassigned, 32682.1.1 ity of [place] 3.104.2.7 [place] .3.961964 Medica l .8 Belva 2019-01-23 2019-01-23 Telephone Wadsworth, 1.2.840.3 [id number] Univers 00:00:00 00:00:00 Leelee 94737.1.1 ity of 3.104.2.7 [place] .3.175248 Medica l .8 Branch 2019-01-19 2019-01-20 Routine Wadsworth, 1.2.840.7 [id number] Univers 08:33:37 16:03:13 Leelee 11267.1.1 ity of Visit 3.104.2.7 [place] .3.408971 Medica l .8 Branch 2019-01-20 2019-01-20 Telephone Wadsworth, 1.2.840.3 [id number] Univers 00:00:00 00:00:00 Leelee 26835.1.1 ity of 3.104.2.7 [place] .3.205586 Medica l .8 Branch 2019-01-12 2019-01-12 Telephone Wadsworth, 1.2.840.6 [id number] Univers 00:00:00 00:00:00 Leelee 57287.1.1 ity of 3.104.2.7 [place] .3.320543 Medica l .8 Branch 2019-01-10 2019-01-10 Telephone Wadsworth, 1.2.840.4 [id number] Univers 00:00:00 00:00:00 Leelee 03443.1.1 ity of 3.104.2.7 [place] .3.722959 Medica l .8 Branch 2019-01-06 2019-01-06 Telephone W[place]sworth, 1.2.840.3 [id number] Univers 00:00:00 00:00:00 Leelee 67390.1.1 ity of 3.104.2.7 [place] .3.033474 Medica l .8 Branch 2019-01-06 2019-01-06 Telephone Wadsworth, 1.2.840.3 [id number] Univers 00:00:00 00:00:00 Leelee 78268.1.1 ity of 3.104.2.7 [place] .3.889707 Medica l .8 [facility] 2018-12-29 2018-12-29 Maintenance Planning Clerk Wadsworth, Leelee 1.2.840.1 [id number] Univers 09:33:56 09:48:56 Visit 2, [facility] 27365.1.1 i ty of 3.104.2.7 [place] .3.594808 Medica l .8 Branch 2018-12-29 2018-12-29 Initial Wadsworth, 1.2.840.5 [id number] Univers 08:07:10 09:24:31 Leelee 01317.1.1 ity of Visit 3.104.2.7 [place] .3.792955 Medica l .8 Branch 2018-12-29 2018-12-29 Orders Doctor 1.2.840.8 [id number] Univers 00:00:00 00:00:00 Only Unassigned, 31052.1.1 ity of [place] 3.104.2.7 [place] .3.563204 Medica l .8 Belva 2018-09-14 2018-09-14 Out[facility] [id number] Common 10:01:00 10:01:00 t [facility] 2018-08-29 2018-08-29 [facility] [id number] Common 10:44:00 10[facility]44[facility] 2018-07-28 2018-07-28 [facility] [id number] Common 10:00:00 10:00:00 [facility] 2017-12-16 2017-12-16 [facility] [id number] Common 10:00:00 10:00:00 [facility] 2017-10-05 2017-10-05 [facility] [id number] Common 12:00:00 12:00:00 t [facility] 2017-09-29 2017-09-29 [facility] [id number] Common 11:00:00 11:00:00 t [facility] Results Test Description Test Time Test Comments Results Result Comments Source TSH RECEPTOR ANTIBODY (TRAB) 2021-12-24 10:45:30 Test Item Value Reference Range Interpretation Comme nts TSH AB (test code = 5385-0) <0.80 See_Comment Performed By: NEAL [address] [address]Szdhpfjxul Director: Satnam Hutton MD, PhD [Automated message] The system whic h generated this result transmit rodrigo reference range: <=1.75 IU/L. Th e reference range was not used to int erpret this result as normal/abnormal . [facility] RECEPTOR ANTIBODY (TRAB)2021-12-24 10:45:30 Test Item Value Reference Range Interpretation Comments TSH AB (test code = <0.80 See_Comment Performe d By: NEAL 5385-0) [address] [address]Yshfdmplgl Director: Satnam jackson MD, PhD [Automated mess age] The system which ge nerated this result transmit rodrigo reference range : <=1.75 IU/L. The refer ence range was not used to interpret this result as normal/abnormal . [facility] RECEPTOR ANTIBODY (TRAB)2021-12-24 10:45:30 Test Item Value Reference Range Interpretation Comments TSH AB (test code = <0.80 See_Comment Performe d By: NEAL 5385-0) [address] [address]Epaevjwyha Director: Satnam jackson MD, PhD [Automated mess age] The system which ge nerated this result transmit rodrigo reference range : <=1.75 IU/L. The refer ence range was not used to interpret this result as normal/abnormal . [facility] RECEPTOR ANTIBODY (TRAB)2021-12-24 10:45:30 Test Item Value Reference Range Interpretation Comments TSH AB (test code = <0.80 See_Comment Performe d By: NEAL 5385-0) [address] [address]Zsiugutkfx Director: Satnam jackson MD, PhD [Automated mess age] The system which ge nerated this result transmit rodrigo reference range : <=1.75 IU/L. The refer ence range was not used to interpret this result as normal/abnormal . [facility]2021-12-24 10:45:30 Test Item Value Reference Range Interpretation Comments TSH AB (test code = <0.80 See_Comment Performe d By: NEAL 5385-0) [address] [address]Bfgyftvkvi Director: Satnam jackson MD, PhD [Automated mess age] The system which ge nerated this result transmit rodrigo reference range : <=1.75 IU/L. The refer ence range was not used to interpret this result as normal/abnormal . [facility] 06:43:29 Test Item Value Reference Range Interpretation Comments T3 (test code = 5638181246) 396.0 ng/dL 97-170 H Lab Interpretation (test code = Abnormal 21102-7) [facility]-08-20 06:43:29 Test Item Value Reference Range Interpretation Comments T3 (test code = 4756201103) 396.0 ng/dL 97-170 H Lab Interpretation (test code = Abnormal 62103-8) [facility]2022-08-20 06:43:29 Test Item Value Reference Range Interpretation Comments T3 (test code = 8863070436) 396.0 ng/dL 97-170 H Lab Interpretation (test code = Abnormal 11861-5) [facility]2022-08-20 06:43:29 Test Item Value Reference Range Interpretation Comments T3 (test code = 0772770801) 396.0 ng/dL 97.0-170.0 H Lab Interpretation (test code = Abnormal 90611-9) [facility]2022-08-20 06:43:29 Test Item Value Reference Range Interpretation Comments T3 (test code = 6539896362) 396.0 ng/dL 97.0-170.0 H Lab Interpretation (test code = Abnormal 76023-1) [facility] [id number] 04:47:57 Test Item Value Reference Range Interpretation Comments TSH (test code = See_Comment L [Automated message] 6735689232) The system [email or web address] generated this result transmitted ref erence range: 0.45 - 4 .70 mIU/L. The refe rence range was not u sed to interpret this result as normal/abnor mal. Lab Interpretation (test Abnormal code = 33754-7) [facility] [id number] 04:47:57 Test Item Value Reference Range Interpretation Comments TSH (test code = See_Comment L [Automated message] 1718693746) The system [email or web address] generated this result transmitted ref erence range: 0.45 - 4 .70 mIU/L. The refe rence range was not u sed to interpret this result as normal/abnor mal. Lab Interpretation (test Abnormal code = 28008-7) [facility] [id number] 04:47:57 Test Item Value Reference Range Interpretation Comments TSH (test code = See_Comment L [Automated message] 7606919379) The system [email or web address] generated this result transmitted ref erence range: 0.45 - 4 .70 mIU/L. The refe rence range was not u sed to interpret this result as normal/abnor mal. Lab Interpretation (test Abnormal code = 94108-8) [facility] STIM[facility] [id number] 04:47:57 Test Item Value Reference Range Interpretation Comments TSH (test code = See_Comment L [Automated message] 8606504716) The system [email or web address] generated this result transmitted ref erence range: 0.45 - 4 .70 mIU/L. The refe rence range was not u sed to interpret this result as normal/abnor mal. Lab Interpretation (test Abnormal code = 64037-7) [facility] [id number] 04:47:57 Test Item Value Reference Range Interpretation Comments TSH (test code = See_Comment L [Automated message] 2634905812) The system [email or web address] generated this result transmitted ref erence range: 0.45 - 4 .70 mIU/L. The refe rence range was not u sed to interpret this result as normal/abnor mal. Lab Interpretation (test Abnormal code = 40525-6) [facility] [id number] 04:33:57 Test Item Value Reference Range Interpretation Comments FREE T4 (test code = See_Comment H [Autom ated message] 9489666014) The system [email or web address] generated this result transmitted ref erence range: 0.78 - 2 .20 ng/dL:. The ref erence range was not u sed to interpret this result as normal/abnor mal. Lab Interpretation (test Abnormal code = 27348-3) [place] [address]-08-20 04:33:57 Test Item Value Reference Range Interpretation Comments FREE T4 (test code = See_Comment H [Autom ated message] 8038743282) The system [email or web address] generated this result transmitted ref erence range: 0.78 - 2 .20 ng/dL:. The ref erence range was not u sed to interpret this result as normal/abnor mal. Lab Interpretation (test Abnormal code = 18615-6) [address]08-20 04:33:57 Test Item Value Reference Range Interpretation Comments FREE T4 (test code = See_Comment H [Autom ated message] 5786718735) The system [email or web address] generated this result transmitted ref erence range: 0.78 - 2 .20 ng/dL:. The ref erence range was not u sed to interpret this result as normal/abnor mal. Lab Interpretation (test Abnormal code = 88055-9) [place] [address]-08-20 04:33:57 Test Item Value Reference Range Interpretation Comments FREE T4 (test code = See_Comment H [Autom ated message] 9167549471) The system [email or web address] generated this result transmitted ref erence range: 0.78 - 2 .20 ng/dL:. The ref erence range was not u sed to interpret this result as normal/abnor mal. Lab Interpretation (test Abnormal code = 28703-8) [place] [address]-08-20 04:33:57 Test Item Value Reference Range Interpretation Comments FREE T4 (test code = See_Comment H [Autom ated message] 3576911635) The system [email or web address] generated this result transmitted ref erence range: 0.78 - 2 .20 ng/dL:. The ref erence range was not u sed to interpret this result as normal/abnor mal. Lab Interpretation (test Abnormal code = 58503-8) [facility] (A1C)2021-12-20 04:20:48 Test Item Value Reference Range Interpretation Comments HGB A1C (test code = 5.4 % 4-5.7 4548-4) BONNIE (test code = BONNIE) Reference RangesNormal: <5.7%Prediabetes: 5.7 - 6.4%Diabetes: > 6.5% Lab Interpretation (test Normal code = 96432-0) [facility]A1C)2021-12-20 04:20:48 Test Item Value Reference Range Interpretation Comments HGB A1C (test code = 5.4 % 4-5.7 4548-4) BONNIE (test code = BONNIE) Reference RangesNormal: <5.7%Prediabetes: 5.7 - 6.4%Diabetes: > 6.5% Lab Interpretation (test Normal code = 39581-5) [facility] (A1C)2021-12-20 04:20:48 Test Item Value Reference Range Interpretation Comments HGB A1C (test code = 5.4 % 4-5.7 4548-4) BONNIE (test code = BONNIE) Reference RangesNormal: <5.7%Prediabetes: 5.7 - 6.4%Diabetes: > 6.5% Lab Interpretation (test Normal code = 01118-6) [facility]A1C)2021-12-20 04:20:48 Test Item Value Reference Range Interpretation Comments HGB A1C (test code = 5.4 % 4.0-5.7 4548-4) BONNIE (test code = BONNIE) Reference RangesNormal: <5.7%Prediabetes: 5.7 - 6.4%Diabetes: > 6.5% Lab Interpretation (test Normal code = 83296-7) [facility]A1C)2021-12-20 04:20:48 Test Item Value Reference Range Interpretation Comments HGB A1C (test code = 5.4 % 4.0-5.7 4548-4) BONNIE (test code = BONNIE) Reference RangesNormal: <5.7%Prediabetes: 5.7 - 6.4%Diabetes: > 6.5% Lab Interpretation (test Normal code = 68459-0) [facility] METABOLIC PANEL (68059)2021-12-20 04:19:52 Test Item Value Reference Range Interpretation Comments NA (test code = 138 mmol/L 135-145 0745433525) K (test code = 4.3 mmol/L 3.5-5 6484411261) CL (test code = 106 mmol/L 98-108 6224685828) CO2 TOTAL (test code = 26 mmol/L 23-31 2674334897) AGAP (test code = 2-16 6968241052) BUN (test code = 5 mg/dL 7-23 L 4748012080) GLUCOSE (test code = 103 mg/dL 70-110 0707642956) CREATININE (test code = 0.40 mg/dL 0.5-1.04 L 7119816572) TOTAL BILI (test code = 0.6 mg/dL 0.1-1.7 5620618292) CALCIUM (test code = 9.0 mg/dL 8.6-10.6 8621802417) T PROTEIN (test code = 6.3 g/dL 6.3-8.2 3024596897) ALBUMIN (test code = 4.0 g/dL 3.5-5 4509950292) ALK PHOS (test code = 101 U/L 34-122 8555848191) ALTv (test code = 35 U/L 5-35 1742-6) AST(SGOT) (test code = 33 U/L 13-40 8949413187) eGFR (test code = mL/min/1.73m2 5875392693) BONNIE (test code = BONNIE) Association of [...] tests). Lab Interpretation Abnormal (test code = 41318-9) [facility]. METABOLIC PANEL (79581)2021-12-20 04:19:52 Test Item Value Reference Range Interpretation Comments NA (test code = 138 mmol/L 135-145 5159052009) K (test code = 4.3 mmol/L 3.5-5 7286405993) CL (test code = 106 mmol/L 98-108 7200928157) CO2 TOTAL (test code = 26 mmol/L 23-31 3657213018) AGAP (test code = 2-16 6180012877) BUN (test code = 5 mg/dL 7-23 L 7576752586) GLUCOSE (test code = 103 mg/dL 70-110 5127418039) CREATININE (test code = 0.40 mg/dL 0.5-1.04 L 0545326584) TOTAL BILI (test code = 0.6 mg/dL 0.1-1.5 4653592167) CALCIUM (test code = 9.0 mg/dL 8.6-10.6 5092260693) T PROTEIN (test code = 6.3 g/dL 6.3-8.2 9866759770) ALBUMIN (test code = 4.0 g/dL 3.5-5 9421326186) ALK PHOS (test code = 101 U/L 34-122 3653879572) ALTv (test code = 35 U/L 5-35 2-6) AST(SGOT) (test code = 33 U/L 13-40 7605664073) eGFR (test code = mL/min/1.73m2 0069975836) BONNIE (test code = BONNIE) Association of [...] tests). Lab Interpretation Abnormal (test code = 72237-7) [facility]. METABOLIC PANEL (57626)2021-12-20 04:19:52 Test Item Value Reference Range Interpretation Comments NA (test code = 138 mmol/L 135-145 7110585945) K (test code = 4.3 mmol/L 3.5-5 5719600437) CL (test code = 106 mmol/L 98-108 7329731801) CO2 TOTAL (test code = 26 mmol/L 23-31 4491528179) AGAP (test code = 2-16 5381982880) BUN (test code = 5 mg/dL 7-23 L 9220486481) GLUCOSE (test code = 103 mg/dL 70-110 2435222226) CREATININE (test code = 0.40 mg/dL 0.5-1.04 L 9521720823) TOTAL BILI (test code = 0.6 mg/dL 0.1-1.0 8029692039) CALCIUM (test code = 9.0 mg/dL 8.6-10.6 0655736541) T PROTEIN (test code = 6.3 g/dL 6.3-8.2 7892512705) ALBUMIN (test code = 4.0 g/dL 3.5-5 5491569864) ALK PHOS (test code = 101 U/L 34-122 5916280494) ALTv (test code = 35 U/L 5-35 1742-6) AST(SGOT) (test code = 33 U/L 13-40 8410604163) eGFR (test code = mL/min/1.73m2 6798272053) BONNIE (test code = BONNIE) Association of [...] tests). Lab Interpretation Abnormal (test code = 56122-5) [facility]. METABOLIC PANEL (09084)2021-12-20 04:19:52 Test Item Value Reference Range Interpretation Comments NA (test code = 138 mmol/L 135-145 2229010249) K (test code = 4.3 mmol/L 3.5-5.0 0567365383) CL (test code = 106 mmol/L 98-108 8970805462) CO2 TOTAL (test code = 26 mmol/L 23-31 4018659999) AGAP (test code = 2-16 1513668088) BUN (test code = 5 mg/dL 7-23 L 8966038803) GLUCOSE (test code = 103 mg/dL 70-110 9857075238) CREATININE (test code = 0.40 mg/dL 0.50-1.04 L 5443288831) TOTAL BILI (test code = 0.6 mg/dL 0.1-1.8 6260227207) CALCIUM (test code = 9.0 mg/dL 8.6-10.6 7273326932) T PROTEIN (test code = 6.3 g/dL 6.3-8.2 4331962149) ALBUMIN (test code = 4.0 g/dL 3.5-5.0 9974018295) ALK PHOS (test code = 101 U/L 34-122 5452423549) ALTv (test code = 35 U/L 5-35 1742-6) AST(SGOT) (test code = 33 U/L 13-40 6217726578) eGFR (test code = mL/min/1.73m2 1960367264) BONNIE (test code = BONNIE) Association of [...] tests). Lab Interpretation Abnormal (test code = 34014-1) [facility]. METABOLIC PANEL (94237)2021-12-20 04:19:52 Test Item Value Reference Range Interpretation Comments NA (test code = 138 mmol/L 135-145 1537541520) K (test code = 4.3 mmol/L 3.5-5.0 3873001132) CL (test code = 106 mmol/L 98-108 0907392353) CO2 TOTAL (test code = 26 mmol/L 23-31 6274763052) AGAP (test code = 2-16 7797323253) BUN (test code = 5 mg/dL 7-23 L 6145707902) GLUCOSE (test code = 103 mg/dL 70-110 1203530794) CREATININE (test code = 0.40 mg/dL 0.50-1.04 L 0831985561) TOTAL BILI (test code = 0.6 mg/dL 0.1-1.3 7458915070) CALCIUM (test code = 9.0 mg/dL 8.6-10.6 5287566045) T PROTEIN (test code = 6.3 g/dL 6.3-8.2 9246046390) ALBUMIN (test code = 4.0 g/dL 3.5-5.0 7647672095) ALK PHOS (test code = 101 U/L 34-122 9946574909) ALTv (test code = 35 U/L 5-35 1742-6) AST(SGOT) (test code = 33 U/L 13-40 7526808217) eGFR (test code = mL/min/1.73m2 4385353673) BONNIE (test code = BONNIE) Association of [...] tests). Lab Interpretation Abnormal (test code = 49921-7) [facility] WITH [id number] 04:03:52 Test Item Value Reference Range Interpretation Comments WBC (test code = See_Comment [Automated 6282-2) message] The sy stem which generated this result transmitted reference range : 4.30 - 11.10 10*3/?L. The reference range was not used to interpret this result as normal/abnormal . RBC (test code = See_Comment [Automated 649-8) message] The sy stem which generated this result transmitted reference range : 3.93 - 5.25 10*6/?L. The reference range was not used to interpret this result as normal/abnormal . HGB (test code = 12.4 g/dL 11.6-15 718-7) HCT (test code = 38.5 % 35.7-45.2 4544-3) MCV (test code = 80.4 fL 80.6-95.5 L 787-2) MCH (test code = 25.9 pg 25.9-32.8 785-6) MCHC (test code = 32.2 g/dL 31.6-35.1 786-4) RDW-SD (test code = 37.9 fL 39-49.9 L 87411-4) RDW-CV (test code = 13.0 % 12-15.5 788-0) PLT (test code = See_Comment [Automated 777-3) message] The sy stem which generated this result transmitted reference range : 166 - 358 10*3/ ?L. The reference r radha was not used to interpret this result as normal/abnormal . MPV (test code = 12.7 fL 9.5-12.9 55140-4) NRBC/100 WBC (test See_Comment [Automat ed code = 7713503868) message] The system which generated this result transmitted reference range : 0.0 - 10.0 /100 WBCs. The refer ence range was not u sed to interpret th is result as normal/abnormal . NRBC x10^3 (test code See_Comment [Auto mated = 0829471071) message] The s ystem which generated this result transmitted reference range : 10*3/?L. The reference range was not used to interpret this result as normal/abnormal . GRAN MAT (NEUT) % 51.4 % (test code = 770-8) IMM GRAN % (test code 0.20 % = 0824590746) LYMPH % (test code = 39.7 % 736-9) MONO % (test code = 5.5 % 5905-5) EOS % (test code = 2.7 % 713-8) BASO % (test code = 0.5 % 706-2) GRAN MAT x10^3(ANC) 4.34 10*3/uL 1.88-7.09 (test code = [id number]) IMM GRAN x10^3 (test 0-0.06 code = [id number]) LYMPH x10^3 (test code 3.35 10*3/uL 1.32-3.29 H = 731-0) MONO x10^3 (test code 0.46 10*3/uL 0.33-0.92 = 742-7) EOS x10^3 (test code = 0.23 10*3/uL 0.03-0.39 711-2) BASO x10^3 (test code 0.04 10*3/uL 0.01-0.07 = 704-7) Lab Interpretation Abnormal (test code = 21438-3) [facility] WITH [id number] 04:03:52 Test Item Value Reference Range Interpretation Comments WBC (test code = See_Comment [Automated 5658-2) message] The sy stem which generated this result transmitted reference range : 4.30 - 11.10 10*3/?L. The reference range was not used to interpret this result as normal/abnormal . RBC (test code = See_Comment [Automated 699-8) message] The sy stem which generated this result transmitted reference range : 3.93 - 5.25 10*6/?L. The reference range was not used to interpret this result as normal/abnormal . HGB (test code = 12.4 g/dL 11.6-15 718-7) HCT (test code = 38.5 % 35.7-45.2 4544-3) MCV (test code = 80.4 fL 80.6-95.5 L 787-2) MCH (test code = 25.9 pg 25.9-32.8 785-6) MCHC (test code = 32.2 g/dL 31.6-35.1 786-4) RDW-SD (test code = 37.9 fL 39-49.9 L 92422-6) RDW-CV (test code = 13.0 % 12-15.5 788-0) PLT (test code = See_Comment [Automated 667-3) message] The sy stem which generated this result transmitted reference range : 166 - 358 10*3/ ?L. The reference r radha was not used to interpret this result as normal/abnormal . MPV (test code = 12.7 fL 9.5-12.9 03382-5) NRBC/100 WBC (test See_Comment [Automat ed code = 0188091421) message] The system which generated this result transmitted reference range : 0.0 - 10.0 /100 WBCs. The refer ence range was not u sed to interpret th is result as normal/abnormal . NRBC x10^3 (test code See_Comment [Auto mated = 2117283227) message] The s ystem which generated this result transmitted reference range : 10*3/?L. The reference range was not used to interpret this result as normal/abnormal . GRAN MAT (NEUT) % 51.4 % (test code = 770-8) IMM GRAN % (test code 0.20 % = 6630377273) LYMPH % (test code = 39.7 % 736-9) MONO % (test code = 5.5 % 5905-5) EOS % (test code = 2.7 % 713-8) BASO % (test code = 0.5 % 706-2) GRAN MAT x10^3(ANC) 4.34 10*3/uL 1.88-7.09 (test code = 2990219805) IMM GRAN x10^3 (test 0-0.06 code = 1189654135) LYMPH x10^3 (test code 3.35 10*3/uL 1.32-3.29 H = 731-0) MONO x10^3 (test code 0.46 10*3/uL 0.33-0.92 = 742-7) EOS x10^3 (test code = 0.23 10*3/uL 0.03-0.39 711-2) BASO x10^3 (test code 0.04 10*3/uL 0.01-0.07 = 704-7) Lab Interpretation Abnormal (test code = 13682-2) [facility] WITH [id number] 04:03:52 Test Item Value Reference Range Interpretation Comments WBC (test code = See_Comment [Automated 5017-2) message] The sy stem which generated this [...] as normal/abnormal . HGB (test code = 12.4 g/dL 11.6-15 718-7) HCT (test code = 38.5 % 35.7-45.2 4544-3) MCV (test code = 80.4 fL 80.6-95.5 L 787-2) MCH (test code = 25.9 pg 25.9-32.8 785-6) MCHC (test code = 32.2 g/dL 31.6-35.1 786-4) RDW-SD (test code = 37.9 fL 39-49.9 L 68254-6) RDW-CV (test code = 13.0 % 12-15.5 788-0) PLT (test code = See_Comment [Automated 777-3) message] The sy stem which generated this result transmitted reference range : 166 - 358 10*3/ ?L. The reference r radha was not used to interpret this result as normal/abnormal . MPV (test code = 12.7 fL 9.5-12.9 23803-2) NRBC/100 WBC (test See_Comment [Automat ed code = 1630025606) message] The system which generated this result transmitted reference range : 0.0 - 10.0 /100 WBCs. The refer ence range was not u sed to interpret th is result as normal/abnormal . NRBC x10^3 (test code See_Comment [Auto mated = 0736577742) message] The s ystem which generated this result transmitted reference range : 10*3/?L. The reference range was not used to interpret this result as normal/abnormal . GRAN MAT (NEUT) % 51.4 % (test code = 770-8) IMM GRAN % (test code 0.20 % = 2330456919) LYMPH % (test code = 39.7 % 736-9) MONO % (test code = 5.5 % 5905-5) EOS % (test code = 2.7 % 713-8) BASO % (test code = 0.5 % 706-2) GRAN MAT x10^3(ANC) 4.34 10*3/uL 1.88-7.09 (test code = 6321769835) IMM GRAN x10^3 (test 0-0.06 code = 0096647305) LYMPH x10^3 (test code 3.35 10*3/uL 1.32-3.29 H = 731-0) MONO x10^3 (test code 0.46 10*3/uL 0.33-0.92 = 742-7) EOS x10^3 (test code = 0.23 10*3/uL 0.03-0.39 711-2) BASO x10^3 (test code 0.04 10*3/uL 0.01-0.07 = 704-7) Lab Interpretation Abnormal (test code = 46292-8) [facility] WITH [id number] 04:03:52 Test Item Value Reference Range Interpretation Comments WBC (test code = See_Comment [Automated 6437-2) message] The sy stem which generated this result transmitted reference range : 4.30 - 11.10 10*3/?L. The reference range was not used to interpret this result as normal/abnormal . RBC (test code = See_Comment [Automated 619-8) message] The sy stem which generated this result transmitted reference range : 3.93 - 5.25 10*6/?L. The reference range was not used to interpret this result as normal/abnormal . HGB (test code = 12.4 g/dL 11.6-15.0 718-7) HCT (test code = 38.5 % 35.7-45.2 4544-3) MCV (test code = 80.4 fL 80.6-95.5 L 787-2) MCH (test code = 25.9 pg 25.9-32.8 785-6) MCHC (test code = 32.2 g/dL 31.6-35.1 786-4) RDW-SD (test code = 37.9 fL 39.0-49.9 L 86196-2) RDW-CV (test code = 13.0 % 12.0-15.5 788-0) PLT (test code = See_Comment [Automated 367-3) message] The sy stem which generated this result transmitted reference range : 166 - 358 10*3/ ?L. The reference r radha was not used to interpret this result as normal/abnormal . MPV (test code = 12.7 fL 9.5-12.9 00781-5) NRBC/100 WBC (test See_Comment [Automat ed code = 7783841264) message] The system which generated this result transmitted reference range : 0.0 - 10.0 /100 WBCs. The refer ence range was not u sed to interpret th is result as normal/abnormal . NRBC x10^3 (test code See_Comment [Auto mated = 7942086775) message] The s ystem which generated this result transmitted reference range : 10*3/?L. The reference range was not used to interpret this result as normal/abnormal . GRAN MAT (NEUT) % 51.4 % (test code = 770-8) IMM GRAN % (test code 0.20 % = 7381302041) LYMPH % (test code = 39.7 % 736-9) MONO % (test code = 5.5 % 5905-5) EOS % (test code = 2.7 % 713-8) BASO % (test code = 0.5 % 706-2) GRAN MAT x10^3(ANC) 4.34 10*3/uL 1.88-7.09 (test code = 7810925759) IMM GRAN x10^3 (test 0.00-0.06 code = 0121843556) LYMPH x10^3 (test code 3.35 10*3/uL 1.32-3.29 H = 731-0) MONO x10^3 (test code 0.46 10*3/uL 0.33-0.92 = 742-7) EOS x10^3 (test code = 0.23 10*3/uL 0.03-0.39 711-2) BASO x10^3 (test code 0.04 10*3/uL 0.01-0.07 = 704-7) Lab Interpretation Abnormal (test code = 00764-5) [facility] WITH [id number] 04:03:52 Test Item Value Reference Range Interpretation Comments [...] as normal/abnormal . HGB (test code = 12.4 g/dL 11.6-15.0 718-7) HCT (test code = 38.5 % 35.7-45.2 4544-3) MCV (test code = 80.4 fL 80.6-95.5 L 787-2) MCH (test code = 25.9 pg 25.9-32.8 785-6) MCHC (test code = 32.2 g/dL 31.6-35.1 786-4) RDW-SD (test code = 37.9 fL 39.0-49.9 L 28027-6) RDW-CV (test code = 13.0 % 12.0-15.5 788-0) PLT (test code = See_Comment [Automated 777-3) message] The sy stem which generated this result transmitted reference range : 166 - 358 10*3/ ?L. The reference r radha was not used to interpret this result as normal/abnormal . MPV (test code = 12.7 fL 9.5-12.9 67926-8) NRBC/100 WBC (test See_Comment [Automat ed code = 7062458921) message] The system which generated this result transmitted reference range : 0.0 - 10.0 /100 WBCs. The refer ence range was not u sed to interpret th is result as normal/abnormal . NRBC x10^3 (test code See_Comment [Auto mated = 8625639133) message] The s ystem which generated this result transmitted reference range : 10*3/?L. The reference range was not used to interpret this result as normal/abnormal . GRAN MAT (NEUT) % 51.4 % (test code = 770-8) IMM GRAN % (test code 0.20 % = 2390704747) LYMPH % (test code = 39.7 % 736-9) MONO % (test code = 5.5 % 5905-5) EOS % (test code = 2.7 % 713-8) BASO % (test code = 0.5 % 706-2) GRAN MAT x10^3(ANC) 4.34 10*3/uL 1.88-7.09 (test code = 5236297789) IMM GRAN x10^3 (test 0.00-0.06 code = 7499569188) LYMPH x10^3 (test code 3.35 10*3/uL 1.32-3.29 H = 731-0) MONO x10^3 (test code 0.46 10*3/uL 0.33-0.92 = 742-7) EOS x10^3 (test code = 0.23 10*3/uL 0.03-0.39 711-2) BASO x10^3 (test code 0.04 10*3/uL 0.01-0.07 = 704-7) Lab Interpretation Abnormal (test code = 86718-2) [id number] 09:00:00 Test Item Value Reference Range Interpretation Comments HEMOGLOBIN A1c-Q See_Comment For the pur pose of (test code = screening for t he 4548-4) presence ofdiab etes: <5.7% ? ? ? Con sistent with the absenc e of diabetes5.7-6.4 % ? ?Consistent wit h increased risk for diabetes ?(prediabetes)> or =6.5% ?Consiste nt with diabetes This a ssay result is consi stent with a decrease d riskof diabetes . Currently, no consensus exist s regarding use ofhemoglobin A1 c for diagnosis of di abetes in children. Ac cording to [place] [employer] [employer] [employer] (ADA)guidelines , hemoglobin A1c <7.0% represents optimalcontrol in non- di abetic patients. Differentmetric s may apply to specif ic patient populat ions. Standards of Me dical Care in Diabete s(ADA). ? [Automated me ssage] The system [email or web address] generated this result transmitted ref erence range: <5.7 % o f total Hgb. The refere nce range was not u sed to interpret this result as normal/abnor mal. BONNIE (test code = PERFORMED BY BONNIE) [employer] [place]; [address] [place] [address]; GILMA GANDHI MD [facility], 3RD [id number] 09:00:00 Test Item Value Reference Range Interpretation Comments TSH, 3RD GENERATION-Q <0.01 mIU/L L ? (test code = 3016-3) ?Refere nce Range ?> or = 20 Years ?0.40-4.50 ? Ranges ?First trimester ? ?0.26-2.66 ?Second trimester ? 0.55-2.73 ?Third trimester ? ?0.43-2.91 BONNIE (test code = BONNIE) [employer]FORMED BY [employer] [place]; [address] [place] [address]; GILMA GANDHI MD Lab Interpretation Abnormal (test code = 86064-5) [facility] (INCLUDES DIFF/PLT)-[id number] 09:00:00 Test Item Value Reference Range Interpretation Comments WHITE BLOOD CELL See_Comment [Automated COUNT-Q (test code = message ] The 0190-2) system which generated this result transmitted reference range : 3.8 - 10.8 Thousand/uL. Th e reference range was not used to interpret this result as normal/abnormal . RED BLOOD CELL See_Comment [Automated COUNT-Q (test code = message ] The 789-8) system which generated this result transmitted reference range : 3.80 - 5.10 Million/uL. The reference range was not used to interpret this result as normal/abnormal . HEMOGLOBIN-Q (test 12.3 g/dL 11.7-15.5 code = 718-7) HEMATOCRIT-Q (test 37.6 % 35-45 code = 4544-3) MCV-Q (test code = 80.2 fL 80-100 787-2) MCH-Q (test code = 26.2 pg 27-33 L 785-6) MCHC-Q (test code = 32.7 g/dL 32-36 786-4) RDW-Q (test code = 12.8 % 11-15 788-0) PLATELET COUNT-Q See_Comment [Automated (test code = 777-3) message] The system which generated this result transmitted reference range : 140 - 400 Thousand/uL. Th e reference range was not used to interpret this result as normal/abnormal . MPV-Q (test code = 11.4 fL 7.5-12.5 776-5) ABSOLUTE See_Comment [Automated NEUTROPHILS-Q (test message] The code = 751-8) system which generated this result transmitted reference range : 1500 - 7800 cells/uL. The reference range was not used to interpret this result as normal/abnormal . ABSOLUTE See_Comment [Automated LYMPHOCYTES-Q (test message] The code = 731-0) system which generated this result transmitted reference range : 850 - 3900 cells/uL. The reference range was not used to interpret this result as normal/abnormal . ABSOLUTE MONOCYTES-Q See_Comment [Autom ated (test code = 742-7) message] The system which generated this result transmitted reference range : 200 - 950 cells/uL. The reference range was not used to interpret this result as normal/abnormal . ABSOLUTE See_Comment [Automated EOSINOPHILS-Q (test message] The code = 711-2) system which generated this result transmitted reference range : 15 - 500 cells/uL. The reference range was not used to interpret this result as normal/abnormal . ABSOLUTE BASOPHILS-Q See_Comment [Autom ated (test code = 704-7) message] The system which generated this result transmitted reference range : 0 - 200 cells/u L. The reference range was not used to interpr et this result as normal/abnormal . NEUTROPHILS-Q (test 47.7 % code = 770-8) LYMPHOCYTES-Q (test 43.3 % code = 736-9) MONOCYTES-Q (test 5.8 % code = 5905-5) EOSINOPHILS-Q (test 2.8 % code = 713-8) BASOPHILS-Q (test 0.4 % code = 706-2) BONNIE (test code = BONNIE) [employer]MED BY [employer] [place]; [address] [facility] [place] [address]; GILMA GANDHI MD Lab Interpretation Abnormal (test code = 98523-7) [facility]$PANEL W/EGFR-Q 2021-12-13 09:00:00 Test Item Value Reference Interpretation Comments Range GLUCOSE-Q (test code 105 mg/dL 65-99 H ? Fasting = 2345-7) reference inter chris For someone wit hout known diabetes, a glucose valuebe tween 100 and 125 mg/ dL is consistent withprediabetes and should be confi rmed with afollow-up test. UREA NITROGEN 9 mg/dL 7-25 (BUN)-Q (test code = 3094-0) CREATININE-Q (test 0.4 mg/dL 0.5-0.97 L code = 2160-0) EGFR-Q (test code = See_Comment [place] [address]) the CKD-EPI 202 1 equation. To calculate the n ew eGFR from a pre vious Creatinine or Cystatin Cresul t, go to [email or web address] rg/professional s/kdo qi/gfr%5Fcalcul ator [Automated mess age] The system [employer] generated this result transmit rodrigo reference range : > OR = 60 mL/min/1.73m2. The reference range was not used to interpret this result as normal/abnormal . BUN/CREATININE See_Comment H [Automated m essage] RATIO-Q (test code = The sy tem which 3097-3) generated this result transmit rodrigo reference range : 6 - 22 (calc). The reference range was not used to interpret this result as normal/abnormal . SODIUM-Q (test code 136 mmol/L 135-146 = 2951-2) POTASSIUM-Q (test 4.2 mmol/L 3.5-5.3 code = 2823-3) CHLORIDE-Q (test 104 mmol/L 98-110 code = 2075-0) CARBON DIOXIDE-Q 28 mmol/L 20-32 (test code = 2027-9) CALCIUM-Q (test code 9.5 mg/dL 8.6-10.2 = 02395-3) PROTEIN, TOTAL-Q 6.7 g/dL 6.1-8.1 (test code = 2885-2) ALBUMIN-Q (test code 4 g/dL 3.6-5.1 = 1751-7) GLOBULIN-Q (test See_Comment [Automated message] code = 06964-6) The system w hich generated this result transmit rodrigo reference range : 1.9 - 3.7 g/dL (kyra c). The reference r radha was not used to interpret this result as normal/abnormal . ALBUMIN/GLOBULIN See_Comment [Automated message] RATIO-Q (test code = The sys tem which 1759-0) generated this result transmit rodrigo reference range : 1.0 - 2.5 (calc). T he reference range was not used to interpret this result as normal/abnormal . BILIRUBIN, TOTAL-Q 0.5 mg/dL 0.2-1.2 (test code = 1975-2) ALKALINE 88 U/L 31-125 PHOSPHATASE-Q (test code = 6768-6) AST-Q (test code = 12 U/L 10 1920-8) ALT-Q (test code = 11 U/L 10-29 1742-6) BONNIE (test code = PERFORMED BY BONNIE) [employer] [place]; [address] [place] [address]; GILMA GANDHI MD Lab Interpretation Abnormal (test code = 18668-0) [facility] [id number] 09:00:00 Test Item Value Reference Range Interpretation Comments HEMOGLOBIN A1c-Q See_Comment For the pur pose of (test code = screening for t he 4548-4) presence ofdiab etes: <5.7% ? ? ? Con sistent with the absenc e of diabetes5.7-6.4 % ? ?Consistent wit h increased risk for diabetes ?(prediabetes)> or =6.5% ?Consiste nt with diabetes This a ssay result is consi stent with a decrease d riskof diabetes . Currently, no consensus exist s regarding use ofhemoglobin A1 c for diagnosis of di abetes in children. Ac cording to [place] [employer] [employer] (ADA)guidelines , hemoglobin A1c <7.0% represents optimalcontrol in non- di abetic patients. Differentmetric s may apply to specif ic patient populat ions. Standards of Me dical Care in Diabete s(ADA). ? [Automated me ssage] The system whic h generated this result transmitted ref erence range: <5.7 % o f total Hgb. The refere nce range was not u sed to interpret this result as normal/abnor mal. BONNIE (test code = PERFORMED BY BONNIE) [employer] [place]; [address] [place] [address]; GILMA GANDHI MD [facility], 3RD [id number] 09:00:00 Test Item Value Reference Range Interpretation Comments TSH, 3RD GENERATION-Q <0.01 mIU/L L ? (test code = 3016-3) ?Refere nce Range ?> or = 20 Years ?0.40-4.50 ? Ranges ?First trimester ? ?0.26-2.66 ?Second trimester ? 0.55-2.73 ?Third trimester ? ?0.43-2.91 BONNIE (test code = BONNIE) [employer]MED BY [employer] [place]; [address] [place] [address]; GILMA GANDHI MD Lab Interpretation Abnormal (test code = 22982-2) [facility] (INCLUDES DIFF/PLT)-[id number] 09:00:00 Test Item Value Reference Range Interpretation Comments WHITE BLOOD CELL See_Comment [Automated COUNT-Q (test code = message ] The 7590-2) system which generated this result transmitted reference range : 3.8 - 10.8 Thousand/uL. Th e reference range was not used to interpret this result as normal/abnormal . RED BLOOD CELL See_Comment [Automated COUNT-Q (test code = message ] The 789-8) system which generated this result transmitted reference range : 3.80 - 5.10 Million/uL. The reference range was not used to interpret this result as normal/abnormal . HEMOGLOBIN-Q (test 12.3 g/dL 11.7-15.5 code = 718-7) HEMATOCRIT-Q (test 37.6 % 35-45 code = 4544-3) MCV-Q (test code = 80.2 fL 80-100 787-2) MCH-Q (test code = 26.2 pg 27-33 L 785-6) MCHC-Q (test code = 32.7 g/dL 32-36 786-4) RDW-Q (test code = 12.8 % 11-15 788-0) PLATELET COUNT-Q See_Comment [Automated (test code = 777-3) message] The system which generated this result transmitted reference range : 140 - 400 Thousand/uL. Th e reference range was not used to interpret this result as normal/abnormal . MPV-Q (test code = 11.4 fL 7.5-12.5 776-5) ABSOLUTE See_Comment [Automated NEUTROPHILS-Q (test message] The code = 751-8) system which generated this result transmitted reference range : 1500 - 7800 cells/uL. The reference range was not used to interpret this result as normal/abnormal . ABSOLUTE See_Comment [Automated LYMPHOCYTES-Q (test message] The code = 731-0) system which generated this result transmitted reference range : 850 - 3900 cells/uL. The reference range was not used to interpret this result as normal/abnormal . ABSOLUTE MONOCYTES-Q See_Comment [Autom ated (test code = 742-7) message] The system which generated this result transmitted reference range : 200 - 950 cells/uL. The reference range was not used to interpret this result as normal/abnormal . ABSOLUTE See_Comment [Automated EOSINOPHILS-Q (test message] The code = 711-2) system which generated this result transmitted reference range : 15 - 500 cells/uL. The reference range was not used to interpret this result as normal/abnormal . ABSOLUTE BASOPHILS-Q See_Comment [Autom ated (test code = 704-7) message] The system which generated this result transmitted reference range : 0 - 200 cells/u L. The reference range was not used to interpr et this result as normal/abnormal . NEUTROPHILS-Q (test 47.7 % code = 770-8) LYMPHOCYTES-Q (test 43.3 % code = 736-9) MONOCYTES-Q (test 5.8 % code = 5905-5) EOSINOPHILS-Q (test 2.8 % code = 713-8) BASOPHILS-Q (test 0.4 % code = 706-2) BONNIE (test code = BONNIE) [employer]MED BY [employer] [place]; [address] [facility] [address]; GILMA GANDHI MD Lab Interpretation Abnormal (test code = 18547-6) [facility]$PANEL W/EGFR-Q 2021-12-13 09:00:00 Test Item Value Reference Interpretation Comments Range GLUCOSE-Q (test code 105 mg/dL 65-99 H ? Fasting = 2345-7) reference inter chris For someone wit hout known diabetes, a glucose valuebe tween 100 and 125 mg/ dL is consistent withprediabetes and should be confi rmed with afollow-up test. UREA NITROGEN 9 mg/dL 7-25 (BUN)-Q (test code = 3094-0) CREATININE-Q (test 0.4 mg/dL 0.5-0.97 L code = 2160-0) EGFR-Q (test code = See_Comment [place] [address]) the CKD-EPI 202 1 equation. To calculate the n ew eGFR from a pre vious Creatinine or Cystatin Cresul t, go to [email or web address] [email or web address] rg/professional s/kdo qi/gfr%5Fcalcul ator [Automated mess age] The system [email or web address] generated this result transmit rodrigo reference range : > OR = 60 mL/min/1.73m2. The reference range was not used to interpret this result as normal/abnormal . BUN/CREATININE See_Comment H [Automated m essage] RATIO-Q (test code = The sys tem which 3097-3) generated this result transmit rodrigo reference range : 6 - 22 (calc). The reference range was not used to interpret this result as normal/abnormal . SODIUM-Q (test code 136 mmol/L 135-146 = 2951-2) POTASSIUM-Q (test 4.2 mmol/L 3.5-5.3 code = 2823-3) CHLORIDE-Q (test 104 mmol/L 98-110 code = 2075-0) CARBON DIOXIDE-Q 28 mmol/L 20-32 (test code = 2027-9) CALCIUM-Q (test code 9.5 mg/dL 8.6-10.2 = 56322-4) PROTEIN, TOTAL-Q 6.7 g/dL 6.1-8.1 (test code = 2885-2) ALBUMIN-Q (test code 4 g/dL 3.6-5.1 = 1751-7) GLOBULIN-Q (test See_Comment [Automated message] code = 47632-2) The system w hich generated this result transmit rodrigo reference range : 1.9 - 3.7 g/dL (kyra c). The reference r radha was not used to interpret this result as normal/abnormal . ALBUMIN/GLOBULIN See_Comment [Automated message] RATIO-Q (test code = The sys tem which 1759-0) generated this result transmit rodrigo reference range : 1.0 - 2.5 (calc). T he reference range was not used to interpret this result as normal/abnormal . BILIRUBIN, TOTAL-Q 0.5 mg/dL 0.2-1.2 (test code = 1975-2) ALKALINE 88 U/L 31-125 PHOSPHATASE-Q (test code = 6768-6) AST-Q (test code = 12 U/L 10- 1920-8) ALT-Q (test code = 11 U/L 6- 1742-6) BONNIE (test code = PERFORMED BY BONNIE) [employer] [place]; [address] [place] [address]; GILMA GANDHI MD Lab Interpretation Abnormal (test code = 52901-9) [facility] [id number] 09:00:00 Test Item Value Reference Range Interpretation Comments HEMOGLOBIN A1c-Q See_Comment For the pur pose of (test code = screening for t he 4548-4) presence ofdiab etes: <5.7% ? ? ? Con sistent with the absenc e of diabetes5.7-6.4 % ? ?Consistent wit h increased risk for diabetes ?(prediabetes)> or =6.5% ?Consiste nt with diabetes This a ssay result is consi stent with a decrease d riskof diabetes . Currently, no consensus exist s regarding use ofhemoglobin A1 c for diagnosis of di abetes in children. Ac cording to [place] [employer] [employer] (ADA)guidelines , hemoglobin A1c <7.0% represents optimalcontrol in non- di abetic patients. Differentmetric s may apply to specif ic patient populat ions. Standards of Me dical Care in Diabete s(ADA). ? [Automated me ssage] The system whic h generated this result transmitted ref erence range: <5.7 % o f total Hgb. The refere nce range was not u sed to interpret this result as normal/abnor mal. BONNIE (test code = PERFORMED BY BONNIE) [employer] [place]; [address] [place] [address]; GILMA GANDHI MD [facility], 3RD [id number] 09:00:00 Test Item Value Reference Range Interpretation Comments TSH, 3RD GENERATION-Q <0.01 mIU/L L ? (test code = 3016-3) ?Refere nce Range ?> or = 20 Years ?0.40-4.50 ? Ranges ?First trimester ? ?0.26-2.66 ?Second trimester ? 0.55-2.73 ?Third trimester ? ?0.43-2.91 BONNIE (test code = BONNIE) [employer]FORMED BY [employer] [place]; [address] [place] [address]; GILMA GANDHI MD Lab Interpretation Abnormal (test code = 13036-9) [facility] (INCLUDES DIFF/PLT)-[id number] 09:00:00 Test Item Value Reference Range Interpretation Comments WHITE BLOOD CELL See_Comment [Automated COUNT-Q (test code = message ] The 0590-2) system which generated this result transmitted reference range : 3.8 - 10.8 Thousand/uL. Th e reference range was not used to interpret this result as normal/abnormal . RED BLOOD CELL See_Comment [Automated COUNT-Q (test code = message ] The 399-8) system which generated this result transmitted reference range : 3.80 - 5.10 Million/uL. The reference range was not used to interpret this result as normal/abnormal . HEMOGLOBIN-Q (test 12.3 g/dL 11.7-15.5 code = 718-7) HEMATOCRIT-Q (test 37.6 % 35-45 code = 4544-3) MCV-Q (test code = 80.2 fL 80-100 787-2) MCH-Q (test code = 26.2 pg 27-33 L 785-6) MCHC-Q (test code = 32.7 g/dL 32-36 786-4) RDW-Q (test code = 12.8 % 11-15 788-0) PLATELET COUNT-Q See_Comment [Automated (test code = 777-3) message] The system which generated this result transmitted reference range : 140 - 400 Thousand/uL. Th e reference range was not used to interpret this result as normal/abnormal . MPV-Q (test code = 11.4 fL 7.5-12.5 776-5) ABSOLUTE See_Comment [Automated NEUTROPHILS-Q (test message] The code = 751-8) system which generated this result transmitted reference range : 1500 - 7800 cells/uL. The reference range was not used to interpret this result as normal/abnormal . ABSOLUTE See_Comment [Automated LYMPHOCYTES-Q (test message] The code = 731-0) system which generated this result transmitted reference range : 850 - 3900 cells/uL. The reference range was not used to interpret this result as normal/abnormal . ABSOLUTE MONOCYTES-Q See_Comment [Autom ated (test code = 742-7) message] The system which generated this result transmitted reference range : 200 - 950 cells/uL. The reference range was not used to interpret this result as normal/abnormal . ABSOLUTE See_Comment [Automated EOSINOPHILS-Q (test message] The code = 711-2) system which generated this result transmitted reference range : 15 - 500 cells/uL. The reference range was not used to interpret this result as normal/abnormal . ABSOLUTE BASOPHILS-Q See_Comment [Autom ated (test code = 704-7) message] The system which generated this result transmitted reference range : 0 - 200 cells/u L. The reference range was not used to interpr et this result as normal/abnormal . NEUTROPHILS-Q (test 47.7 % code = 770-8) LYMPHOCYTES-Q (test 43.3 % code = 736-9) MONOCYTES-Q (test 5.8 % code = 5905-5) EOSINOPHILS-Q (test 2.8 % code = 713-8) BASOPHILS-Q (test 0.4 % code = 706-2) BONNIE (test code = BONNIE) PERFORMED BY [employer] [place]; [address] [place] [address]; GILMA GANDHI MD Lab Interpretation Abnormal (test code = 87744-9) [facility]AN[facility] W/EGFR-Q 2021-12-13 09:00:00 Test Item Value Reference Interpretation Comments Range GLUCOSE-Q (test code 105 mg/dL 65-99 H ? Fasting = 2345-7) reference inter chris For someone wit hout known diabetes, a glucose valuebe tween 100 and 125 mg/ dL is consistent withprediabetes and should be confi rmed with afollow-up test. UREA NITROGEN 9 mg/dL 7-25 (BUN)-Q (test code = 3094-0) CREATININE-Q (test 0.4 mg/dL 0.5-0.97 L code = 2160-0) EGFR-Q (test code = See_Comment [place] [address]) the CKD-EPI 202 1 equation. To calculate the n ew eGFR from a pre vious Creatinine or Cystatin Cresul t, go to [email or web address] [email or web address] rg/professional s/kdo qi/gfr%5Fcalcul ator [Automated mess age] The system [employer] generated this result transmit rodrigo reference range : > OR = 60 mL/min/1.73m2. The reference range was not used to interpret this result as normal/abnormal . BUN/CREATININE See_Comment H [Automated m essage] RATIO-Q (test code = The sys tem which 3097-3) generated this result transmit rodrigo reference range : 6 - 22 (calc). The reference range was not used to interpret this result as normal/abnormal . SODIUM-Q (test code 136 mmol/L 135-146 = 2951-2) POTASSIUM-Q (test 4.2 mmol/L 3.5-5.3 code = 2823-3) CHLORIDE-Q (test 104 mmol/L 98-110 code = 2075-0) CARBON DIOXIDE-Q 28 mmol/L 20-32 (test code = 2027-9) CALCIUM-Q (test code 9.5 mg/dL 8.6-10.2 = 80149-9) PROTEIN, TOTAL-Q 6.7 g/dL 6.1-8.1 (test code = 2885-2) ALBUMIN-Q (test code 4 g/dL 3.6-5.1 = 1751-7) GLOBULIN-Q (test See_Comment [Automated message] code = 94609-3) The system [facility] generated this result transmit rodrigo reference range : 1.9 - 3.7 g/dL (kyra c). The reference r rahda was not used to interpret this result as normal/abnormal . ALBUMIN/GLOBULIN See_Comment [Automated message] RATIO-Q (test code = The sys tem which 1759-0) generated this result transmit rodrigo reference range : 1.0 - 2.5 (calc). T he reference range was not used to interpret this result as normal/abnormal . BILIRUBIN, TOTAL-Q 0.5 mg/dL 0.2-1.2 (test code = 1975-2) ALKALINE 88 U/L 31-125 PHOSPHATASE-Q (test code = 6768-6) AST-Q (test code = 12 U/L 10-30 1920-8) ALT-Q (test code = 11 U/L 6- 1742-6) BONNIE (test code = PERFORMED BY BONNIE) [employer] [place]; [address] [place] [phone]; GILMA GANDHI MD Lab Interpretation Abnormal (test code = 55502-5) [id number] 09:00:00 Test Item Value Reference Range Interpretation Comments HEMOGLOBIN A1c-Q See_Comment For the pur pose of (test code = screening for t jeancarlos 4548-4) presence ofdiab etes: <5.7% ? ? ? Con sistent with the absenc e of diabetes5.7-6.4 % ? ?Consistent wit h increased risk for diabetes ?(prediabetes)> or =6.5% ?Consiste nt with diabetes This a ssay result is consi stent with a decrease d riskof diabetes . Currently, no consensus exist s regarding use ofhemoglobin A1 c for diagnosis of di abetes in children. Ac cording to [place] [employer] [employer] (ADA)guidelines , hemoglobin A1c <7.0% represents optimalcontrol in non- di abetic patients. Differentmetric s may apply to specif ic patient populat ions. Standards of Me dical Care in Diabete s(ADA). ? [Automated me ssage] The system whic natue generated this result transmitted ref erence range: <5.7 % o f total Hgb. The refere nce range was not u sed to interpret this result as normal/abnor mal. BONNIE (test code = PERFORMED BY BONNIE) [employer] [place]; [address] [place] [phone]; GILMA GANDHI MD [facility], 3RD [id number] 09:00:00 Test Item Value Reference Range Interpretation Comments TSH, 3RD GENERATION-Q <0.01 mIU/L L ? (test code = 3016-3) ?Refere nce Range ?> or = 20 Years ?0.40-4.50 ? Ranges ?First trimester ? ?0.26-2.66 ?Second trimester ? 0.55-2.73 ?Third trimester ? ?0.43-2.91 BONNIE (test code = BONNIE) PERFORMED BY [employer] [place]; [address] [place] [phone]; GILMA GANDHI MD Lab Interpretation Abnormal (test code = 40188-7) [facility] (INCLUDES DIFF/PLT)-[id number] 09:00:00 Test Item Value Reference Range Interpretation Comments WHITE BLOOD CELL See_Comment [Automated COUNT-Q (test code = message ] The 6690-2) system which generated this result transmitted reference range : 3.8 - 10.8 Thousand/uL. Th e reference range was not used to interpret this result as normal/abnormal . RED BLOOD CELL See_Comment [Automated COUNT-Q (test code = message ] The 789-8) system which generated this result transmitted reference range : 3.80 - 5.10 Million/uL. The reference range was not used to interpret this result as normal/abnormal . HEMOGLOBIN-Q (test 12.3 g/dL 11.7-15.5 code = 718-7) HEMATOCRIT-Q (test 37.6 % 35.0-45.0 code = 4544-3) MCV-Q (test code = 80.2 fL 80.0-100.0 787-2) MCH-Q (test code = 26.2 pg 27.0-33.0 L 785-6) MCHC-Q (test code = 32.7 g/dL 32.0-36.0 786-4) RDW-Q (test code = 12.8 % 11.0-15.0 788-0) PLATELET COUNT-Q See_Comment [Automated (test code = 777-3) message] The system which generated this result transmitted reference range : 140 - 400 Thousand/uL. Th e reference range was not used to interpret this result as normal/abnormal . MPV-Q (test code = 11.4 fL 7.5-12.5 776-5) ABSOLUTE See_Comment [Automated NEUTROPHILS-Q (test message] The code = 751-8) system which generated this result transmitted reference range : 1500 - 7800 cells/uL. The reference range was not used to interpret this result as normal/abnormal . ABSOLUTE See_Comment [Automated LYMPHOCYTES-Q (test message] The code = 731-0) system which generated this result transmitted reference range : 850 - 3900 cells/uL. The reference range was not used to interpret this result as normal/abnormal . ABSOLUTE MONOCYTES-Q See_Comment [Autom ated (test code = 742-7) message] The system which generated this result transmitted reference range : 200 - 950 cells/uL. The reference range was not used to interpret this result as normal/abnormal . ABSOLUTE See_Comment [Automated EOSINOPHILS-Q (test message] The code = 711-2) system which generated this result transmitted reference range : 15 - 500 cells/uL. The reference range was not used to interpret this result as normal/abnormal . ABSOLUTE BASOPHILS-Q See_Comment [Autom ated (test code = 704-7) message] The system which generated this result transmitted reference range : 0 - 200 cells/u L. The reference range was not used to interpr et this result as normal/abnormal . NEUTROPHILS-Q (test 47.7 % code = 770-8) LYMPHOCYTES-Q (test 43.3 % code = 736-9) MONOCYTES-Q (test 5.8 % code = 5905-5) EOSINOPHILS-Q (test 2.8 % code = 713-8) BASOPHILS-Q (test 0.4 % code = 706-2) BONNIE (test code = BONNIE) PERFORMED BY [employer] [place]; [address] [place] [address]; GILMA GANDHI MD Lab Interpretation Abnormal (test code = 80610-9) [facility]PANEL W/EGFR-Q 2021-12-13 09:00:00 Test Item Value Reference Interpretation Comments Range GLUCOSE-Q (test code 105 mg/dL 65-99 H ? Fasting = 2345-7) reference inter chris For someone wit hout known diabetes, a glucose valuebe tween 100 and 125 mg/ dL is consistent withprediabetes and should be confi rmed with afollow-up test. UREA NITROGEN 9 mg/dL 7-25 (BUN)-Q (test code = 3094-0) CREATININE-Q (test 0.4 mg/dL 0.50-0.97 L code = 2160-0) EGFR-Q (test code = See_Comment [place] [address]) the CKD-EPI 202 1 equation. To calculate the n ew eGFR from a pre vious Creatinine or Cystatin Cresul t, go to [email or web address] [email or web address] rg/professional s/kdo qi/gfr%5Fcalcul ator [Automated mess age] The system whic h generated this result transmit rodrigo reference range : > OR = 60 mL/min/1.73m2. The reference range was not used to interpret this result as normal/abnormal . BUN/CREATININE See_Comment H [Automated m essage] RATIO-Q (test code = The sys tem which 3097-3) generated this result transmit rodrigo reference range : 6 - 22 (calc). The reference range was not used to interpret this result as normal/abnormal . SODIUM-Q (test code 136 mmol/L 135-146 = 2951-2) POTASSIUM-Q (test 4.2 mmol/L 3.5-5.3 code = 2823-3) CHLORIDE-Q (test 104 mmol/L 98-110 code = 2075-0) CARBON DIOXIDE-Q 28 mmol/L 20-32 (test code = 8-9) CALCIUM-Q (test code 9.5 mg/dL 8.6-10.2 = 73536-8) PROTEIN, TOTAL-Q 6.7 g/dL 6.1-8.1 (test code = 2885-2) ALBUMIN-Q (test code 4 g/dL 3.6-5.1 = 1751-7) GLOBULIN-Q (test See_Comment [Automated message] code = 90440-1) The system [facility] generated this result transmit rodrigo reference range : 1.9 - 3.7 g/dL (kyra c). The reference r radha was not used to interpret this result as normal/abnormal . ALBUMIN/GLOBULIN See_Comment [Automated message] RATIO-Q (test code = The sys tem which 1759-0) generated this result transmit rodrigo reference range : 1.0 - 2.5 (calc). T he reference range was not used to interpret this result as normal/abnormal . BILIRUBIN, TOTAL-Q 0.5 mg/dL 0.2-1.2 (test code = 1974-2) ALKALINE 88 U/L 31-125 PHOSPHATASE-Q (test code = 6768-6) AST-Q (test code = 12 U/L 10-30 1920-8) ALT-Q (test code = 11 U/L 6-29 1742-6) BONNIE (test code = PERFORMED BY BONNIE) [employer] [place]; [address] [place] [phone]; GILMA GANDHI MD Lab Interpretation Abnormal (test code = 41901-7) [facility] [id number] 09:00:00 Test Item Value Reference Range Interpretation Comments HEMOGLOBIN A1c-Q See_Comment For the pur pose of (test code = screening for t he 4548-4) presence ofdiab etes: <5.7% ? ? ? Con sistent with the absenc e of diabetes5.7-6.4 % ? ?Consistent wit h increased risk for diabetes ?(prediabetes)> or =6.5% ?Consiste nt with diabetes This a ssay result is consi stent with a decrease d riskof diabetes . Currently, no consensus exist s regarding use ofhemoglobin A1 c for diagnosis of di abetes in children. Ac cording to [place] [employer] [employer] (ADA)guidelines , hemoglobin A1c <7.0% represents optimalcontrol in non- di abetic patients. Differentmetric s may apply to specif ic patient populat ions. Standards of Me dical Care in Diabete s(ADA). ? [Automated me ssage] The system whic h generated this result transmitted ref erence range: <5.7 % o f total Hgb. The refere nce range was not u sed to interpret this result as normal/abnor mal. BONNIE (test code = PERFORMED BY BONNIE) [employer] [place]; [address] [place] [address]; GILMA GANDHI MD [facility], 3RD [id number] 09:00:00 Test Item Value Reference Range Interpretation Comments TSH, 3RD GENERATION-Q <0.01 mIU/L L ? (test code = 3016-3) ?Refere nce Range ?> or = 20 Years ?0.40-4.50 ? Ranges ?First trimester ? ?0.26-2.66 ?Second trimester ? 0.55-2.73 ?Third trimester ? ?0.43-2.91 BONNIE (test code = BONNIE) PERFORMED BY [employer] [place]; [address] [place] [address]; GILMA GANDHI MD Lab Interpretation Abnormal (test code = 67467-6) [facility] (INCLUDES DIFF/PLT)-[id number] 09:00:00 Test Item Value Reference Range Interpretation Comments WHITE BLOOD CELL See_Comment [Automated COUNT-Q (test code = message ] The 6690-2) system which generated this result transmitted reference range : 3.8 - 10.8 Thousand/uL. Th e reference range was not used to interpret this result as normal/abnormal . RED BLOOD CELL See_Comment [Automated COUNT-Q (test code = message ] The 789-8) system which generated this result transmitted reference range : 3.80 - 5.10 Million/uL. The reference range was not used to interpret this result as normal/abnormal . HEMOGLOBIN-Q (test 12.3 g/dL 11.7-15.5 code = 718-7) HEMATOCRIT-Q (test 37.6 % 35.0-45.0 code = 4544-3) MCV-Q (test code = 80.2 fL 80.0-100.0 787-2) MCH-Q (test code = 26.2 pg 27.0-33.0 L 785-6) MCHC-Q (test code = 32.7 g/dL 32.0-36.0 786-4) RDW-Q (test code = 12.8 % 11.0-15.0 788-0) PLATELET COUNT-Q See_Comment [Automated (test code = 777-3) message] The system which generated this result transmitted reference range : 140 - 400 Thousand/uL. Th e reference range was not used to interpret this result as normal/abnormal . MPV-Q (test code = 11.4 fL 7.5-12.5 776-5) ABSOLUTE See_Comment [Automated NEUTROPHILS-Q (test message] The code = 751-8) system which generated this result transmitted reference range : 1500 - 7800 cells/uL. The reference range was not used to interpret this result as normal/abnormal . ABSOLUTE See_Comment [Automated LYMPHOCYTES-Q (test message] The code = 731-0) system which generated this result transmitted reference range : 850 - 3900 cells/uL. The reference range was not used to interpret this result as normal/abnormal . ABSOLUTE MONOCYTES-Q See_Comment [Autom ated (test code = 742-7) message] The system which generated this result transmitted reference range : 200 - 950 cells/uL. The reference range was not used to interpret this result as normal/abnormal . ABSOLUTE See_Comment [Automated EOSINOPHILS-Q (test message] The code = 711-2) system which generated this result transmitted reference range : 15 - 500 cells/uL. The reference range was not used to interpret this result as normal/abnormal . ABSOLUTE BASOPHILS-Q See_Comment [Autom ated (test code = 704-7) message] The system which generated this result transmitted reference range : 0 - 200 cells/u L. The reference range was not used to interpr et this result as normal/abnormal . NEUTROPHILS-Q (test 47.7 % code = 770-8) LYMPHOCYTES-Q (test 43.3 % code = 736-9) MONOCYTES-Q (test 5.8 % code = 5905-5) EOSINOPHILS-Q (test 2.8 % code = 713-8) BASOPHILS-Q (test 0.4 % code = 706-2) BONNIE (test code = BONNIE) PERFORMED BY [employer] [place]; [address] [place] [address]; GILMA GANDHI MD Lab Interpretation Abnormal (test code = 34636-6) [facility]PANEL W/EGFR-Q 2021-12-13 09:00:00 Test Item Value Reference Interpretation Comments Range GLUCOSE-Q (test code 105 mg/dL 65-99 H ? Fasting = 2345-7) reference inter chris For someone wit hout known diabetes, a glucose valuebe tween 100 and 125 mg/ dL is consistent withprediabetes and should be confi rmed with afollow-up test. UREA NITROGEN 9 mg/dL 7-25 (BUN)-Q (test code = 3094-0) CREATININE-Q (test 0.4 mg/dL 0.50-0.97 L code = 2160-0) EGFR-Q (test code = See_Comment [place] [address]) the CKD-EPI 202 1 equation. To calculate the n ew eGFR from a pre vious Creatinine or Cystatin Cresul t, go to [email or web address] vanda.o rg/professional s/kdo qi/gfr%5Fcalcul ator [Automated mess age] The system [employer] generated this result transmit rodrigo reference range : > OR = 60 mL/min/1.73m2. The reference range was not used to interpret this result as normal/abnormal . BUN/CREATININE See_Comment H [Automated m essage] RATIO-Q (test code = The sys tem which 3097-3) generated this result transmit rodrigo reference range : 6 - 22 (calc). The reference range was not used to interpret this result as normal/abnormal . SODIUM-Q (test code 136 mmol/L 135-146 = 2951-2) POTASSIUM-Q (test 4.2 mmol/L 3.5-5.3 code = 2823-3) CHLORIDE-Q (test 104 mmol/L 98-110 code = 2075-0) CARBON DIOXIDE-Q 28 mmol/L 20-32 (test code = 2027-) CALCIUM-Q (test code 9.5 mg/dL 8.6-10.2 = 66750-2) PROTEIN, TOTAL-Q 6.7 g/dL 6.1-8.1 (test code = 2885-2) ALBUMIN-Q (test code 4 g/dL 3.6-5.1 = 1751-7) GLOBULIN-Q (test See_Comment [Automated message] code = 57678-5) The system [facility] generated this result transmit rodrigo reference range : 1.9 - 3.7 g/dL (kyra c). The reference r radha was not used to interpret this result as normal/abnormal . ALBUMIN/GLOBULIN See_Comment [Automated message] RATIO-Q (test code = The sys tem which 1759-0) generated this result transmit rodrigo reference range : 1.0 - 2.5 (calc). T he reference range was not used to interpret this result as normal/abnormal . BILIRUBIN, TOTAL-Q 0.5 mg/dL 0.2-1.2 (test code = 1975-2) ALKALINE 88 U/L 31-125 PHOSPHATASE-Q (test code = 6768-6) AST-Q (test code = 12 U/L 10-30 1920-8) ALT-Q (test code = 11 U/L 6-29 1742-6) OBNNIE (test code = PERFORMED BY BONNIE) [employer] [place]; [address] [place] [address]; GILMA GANDHI MD Lab Interpretation Abnormal (test code = 89258-7) [facility] URINALYSIS W SPECIFIC [id number] 19:22:00 Test Item Value Reference Range Interpretation Comments POCT U SP GRAV (test code = 1.005 mg/dl 1.005-1.025 3255) POCT PH U (test code = 3254) 8 mg/dl 5-8 POCT U LEUK EST (test code = trace Negative - Negative 3263) POCT U NIT (test code = 3262) neg Negative - Negative POCT U PROT (test code = trace Negative - Negative 3259) POCT U GLU (test code = 3256) neg Negative - Negative POCT U KETONE (test code = neg Negative - Negative 3258) POCT U UROBILI (test code = neg 0.2-1 3260) POCT U BILI (test code = neg Negative - Negative 3261) POCT U BLD (test code = 3257) trace Negative - Negative POCT U COLOR (test code = dark yellow 3266) POCT U APPEAR (test code = clear 3267) [facility] URINALYSIS W SPECIFIC [id number] 19:22:00 Test Item Value Reference Range Interpretation Comments POCT U SP GRAV (test code = 1.005 mg/dl 1.005-1.025 3255) POCT PH U (test code = 3254) 8 mg/dl 5-8 POCT U LEUK EST (test code = trace Negative - Negative 3263) POCT U NIT (test code = 3262) neg Negative - Negative POCT U PROT (test code = trace Negative - Negative 3259) POCT U GLU (test code = 3256) neg Negative - Negative POCT U KETONE (test code = neg Negative - Negative 3258) POCT U UROBILI (test code = neg 0.2-1 3260) POCT U BILI (test code = neg Negative - Negative 3261) POCT U BLD (test code = 3257) trace Negative - Negative POCT U COLOR (test code = dark yellow 3266) POCT U APPEAR (test code = clear 3267) [facility] URINALYSIS W SPECIFIC [id number] 19:22:00 Test Item Value Reference Range Interpretation Comments POCT U SP GRAV (test code = 1.005 mg/dl 1.005-1.025 3255) POCT PH U (test code = 3254) 8 mg/dl 5-8 POCT U LEUK EST (test code = trace Negative - Negative 3263) POCT U NIT (test code = 3262) neg Negative - Negative POCT U PROT (test code = trace Negative - Negative 3259) POCT U GLU (test code = 3256) neg Negative - Negative POCT U KETONE (test code = neg Negative - Negative 3258) POCT U UROBILI (test code = neg 0.2-1 3260) POCT U BILI (test code = neg Negative - Negative 3261) POCT U BLD (test code = 3257) trace Negative - Negative POCT U COLOR (test code = dark yellow 3266) POCT U APPEAR (test code = clear 3267) [facility] [id number] 19:22:00 Test Item Value Reference Range Interpretation Comments POCT U SP GRAV (test code = 1.005 mg/dl 1.005-1.025 3255) POCT PH U (test code = 3254) 8 mg/dl 5-8 POCT U LEUK EST (test code = trace Negative - Negative 3263) POCT U NIT (test code = 3262) neg Negative - Negative POCT U PROT (test code = trace Negative - Negative 3259) POCT U GLU (test code = 3256) neg Negative - Negative POCT U KETONE (test code = neg Negative - Negative 3258) POCT U UROBILI (test code = neg 0.2-1 3260) POCT U BILI (test code = neg Negative - Negative 3261) POCT U BLD (test code = 3257) trace Negative - Negative POCT U COLOR (test code = dark yellow 3266) POCT U APPEAR (test code = clear 3267) [facility]IFIC [id number] 19:22:00 Test Item Value Reference Range Interpretation Comments POCT U SP GRAV (test code = 1.005 mg/dl 1.005-1.025 3255) POCT PH U (test code = 3254) 8 mg/dl 5-8 POCT U LEUK EST (test code = trace Negative - Negative 3263) POCT U NIT (test code = 3262) neg Negative - Negative POCT U PROT (test code = trace Negative - Negative 3259) POCT U GLU (test code = 3256) neg Negative - Negative POCT U KETONE (test code = neg Negative - Negative 3258) POCT U UROBILI (test code = neg 0.2-1 3260) POCT U BILI (test code = neg Negative - Negative 3261) POCT U BLD (test code = 3257) trace Negative - Negative POCT U COLOR (test code = dark yellow 3266) POCT U APPEAR (test code = clear 3267) [facility]"
[2022-07-21] MEDS ORDERED: TETANUS & DIPHTHERIA TOX,ADULT 0.5 ML VIAL ONE (11:34)
[2022-07-21] MEDS ORDERED: LORAZEPAM 1 MG TABLET ONE (11:35)
--- NOTE | 2022-07-21 11:40 | ER ---
Nurse's Notes [facility] Name: Yuli Talbert Age: 37 yrs Sex: Female : 1985 Arrival Date: 07/21/2022 Time: 10:42 Bed 12 Private MD: Diagnosis: Adjustment disorder with anxiety;Suicidal ideations-resolved;Bipolar disorder, unspecified;Abrasion of left forearm Presentation: 07/21 10:45 Chief complaint: EMS states: toned out for suicide attempt, there are some old iw superficial lacerations to her LFA, made comments to a neighbor that she was having thoughts of suicide, but is denying them now , hx of bipolar, schizophrenia , pt state she cuts herself to bring herself back to reality. Coronavirus screen: At this time, the client does not indicate any symptoms associated with coronavirus-19. Ebola Screen: Patient negative for fever greater than or equal to 101.5 degrees Fahrenheit, and additional compatible Ebola Virus Disease symptoms Patient denies exposure to infectious person. Patient denies travel to an Ebola-affected area in the 21 days before illness onset. No symptoms or risks identified at this time. 10:45 Method Of Arrival: EMS: [facility] iw 10:48 Initial Sepsis Screen: Does the patient meet any 2 criteria? No. Patient's initial iw sepsis screen is negative. Does the patient have a suspected source of infection? No. Patient's initial sepsis screen is negative. Risk Assessment: Do you want to hurt yourself or someone else? Patient reports no desire to harm self or others. Onset of symptoms was July 21, 2022. 10:48 Acuity: CANDICE 2 iw Triage Assessment: 10:56 General: Appears in no apparent distress. uncomfortable, Behavior is cooperative, vg1 crying. Pain: Denies pain. Neuro: Level of Consciousness is awake, alert, obeys commands, Oriented to person, place, time, situation. Cardiovascular: Patient's skin is warm and dry. Respiratory: Airway is patent Respiratory effort is even, unlabored. Derm: Skin appears to have superficial lacerations to left forearm. Historical: - Allergies: 10:43 NKDA; iw - Home Meds: 10:43 Abilify Oral [Active]; Klonopin Oral [Active]; Adderall XR Oral [Active]; Pristiq Oral iw [Active]; - PMHx: 10:43 Anxiety; Bipolar disorder; BORDERLINE PERSONALITY DISORDER; chronic back pain; iw - Immunization history:: Client reports having NOT received the Covid vaccine. - Social history:: Smoking status: Patient reports the use of cigarette tobacco products, smokes one-half pack cigarettes per day, Reported history of juuling and/or vaping. Patient/guardian denies using alcohol, street drugs. - Family history:: not pertinent. Assessment: 11:02 Reassessment: Pt stated "I got into an argument with my this morning and he vg1 left; I have abandonment issues bc im adopted, but he knows that I cant be by myself bc I get into my head, so I started to cut myself with a razor, I havnt done this is a long time; I called my dad and told him and he sounded so disappointed in me; I dont want to kill myself, I have kids and I cant leave them I love them and I have to be here for them; I just want to forget that I was adopted, to know that my biological mom didn't want me didn't even put sight on me, just didn't want me" Pt denies SI/HI. 12:44 Reassessment: Patient appears in no apparent distress at this time. Patient and/or iw family updated on plan of care and expected duration. Pain level reassessed. Patient is alert, oriented x 3, equal unlabored respirations, skin warm/dry/pink. pt denies suicidal or homicidal ideation, states she just felt alone and she felt much better by the time she got to the ER. Vital Signs: 10:56 BP 123 / 99; Pulse 96; Resp 16; Temp 97.5(O); Pulse Ox 100% on R/A; Weight 78.02 kg vg1 (R); Height 5 ft. 5 in. ; Pain 0/10; 10:56 Body Mass Index 28.62 (78.02 kg, 165.1 cm) vg1 10:56 Pain Scale: Adult vg1 ED Course: 10:42 Patient arrived in ED. iw 10:48 Triage completed. iw 10:48 Arm band placed on. iw 10:52 Amari Dietrich MD is Attending Physician. gabriel 11:35 Nasreen Cheney, RN is Primary Nurse. iw 11:39 Tejinder Valdez MD is Referral Physician. [facility] 12:46 No provider procedures requiring assistance completed. Patient did not have IV access iw during this emergency room visit. Administered Medications: 11:35 Drug: Tetanus Toxoid,Adsorbed IM 0.5 ml {Parts Identification Technician: [employer]. Exp: 10/04/2023. iw Lot #: [id number]. } Route: IM; Site: right deltoid; 11:35 Drug: LORazepam PO 1 mg Route: PO; iw Outcome: 11:39 Discharge ordered by . [facility] 12:46 Discharged to home ambulatory. iw 12:46 Condition: good 12:46 Discharge instructions given to patient, Instructed on discharge instructions, follow up and referral plans. Demonstrated understanding of instructions, follow-up care. 12:46 Patient left the ED. iw Signatures: Amari Dietrich MD MD cha Williams, Irene RN RN iw Maddie Sanders RN RN vg1 Corrections: (The following items were deleted from the chart) 11:13 11:02 Reassessment: Pt stated "I got into an argument with my this morning and vg1 he left; I have abandonment issues bc im adopted, but he knows that I cant be by myself bc I get into my head, so I stated to cut myself, I havnt done this is a long time; I called my dad and told him and he sounded so disappointed in me; I dont want to kill myself, I have kids and I cant leave them I love them and I have to be here for them; I just want to forget that I was adopted, to know that my biological mom didn't want me didn't even put sight on me, just didn't want me" Pt denies SI/HI vg1
--- NOTE | 2022-07-21 11:40 | EDPHYS ---
Physician Documentation [facility] Name: Yuli Talbert Age: 37 yrs Sex: Female : 1985 Arrival Date: 07/21/2022 Time: 10:42 Bed 12 Private MD: ED Physician Amari Dietrich HPI: 07/21 10:55 This 37 yrs old Female presents to ER via EMS with complaints of Psych gabriel Problem. 10:55 The patient presents to the emergency department with anxiety, depression, suicide gabriel ideation, and the patient has a plan, to cut oneself and bleed. Onset: The symptoms/episode began/occurred just prior to arrival. Past psychiatric history: Prior diagnosis: bipolar disorder, depression. Associated signs and symptoms: Pertinent positives; anxiety, depression, suicide ideation. Severity of symptoms: At their worst the symptoms were mild in the emergency department the symptoms have improved mildly. The patient has experienced similar episodes in the past, several times. Historical: - Allergies: 10:43 NKDA; iw - Home Meds: 10:43 Abilify Oral [Active]; Klonopin Oral [Active]; Adderall XR Oral [Active]; Pristiq Oral iw [Active]; - PMHx: 10:43 Anxiety; Bipolar disorder; BORDERLINE PERSONALITY DISORDER; chronic back pain; iw - Immunization history:: Client reports having NOT received the Covid vaccine. - Social history:: Smoking status: Patient reports the use of cigarette tobacco products, smokes one-half pack cigarettes per day, Reported history of juuling and/or vaping. Patient/guardian denies using alcohol, street drugs. - Family history:: not pertinent. ROS: 10:55 Constitutional: Negative for fever, chills, and weight loss, Eyes: Negative for injury, gabriel pain, redness, and discharge, ENT: Negative for injury, pain, and discharge, Neck: Negative for injury, pain, and swelling, Cardiovascular: Negative for chest pain, palpitations, and edema, Respiratory: Negative for shortness of breath, cough, wheezing, and pleuritic chest pain, Abdomen/GI: Negative for abdominal pain, nausea, vomiting, diarrhea, and constipation, Back: Negative for injury and pain, : Negative for injury, bleeding, discharge, and swelling, MS/Extremity: Negative for injury and deformity, Neuro: Negative for headache, weakness, numbness, tingling, and seizure, Psych: Negative for depression, anxiety, suicide ideation, homicidal ideation, and hallucinations, Allergy/Immunology: Negative for hives, rash, and allergies, Endocrine: Negative for neck swelling, polydipsia, polyuria, polyphagia, and marked weight changes, Hematologic/Lymphatic: Negative for swollen nodes, abnormal bleeding, and unusual bruising. 10:55 Skin: Positive for abrasion(s), of the palmar aspect of left forearm. Exam: 10:55 Constitutional: This is a well developed, well nourished patient who is awake, alert, gabriel and in no acute distress. Head/Face: Normocephalic, atraumatic. Eyes: Pupils equal round and reactive to light, extra-ocular motions intact. Lids and lashes normal. Conjunctiva and sclera are non-icteric and not injected. Cornea within normal limits. Periorbital areas with no swelling, redness, or edema. ENT: Nares patent. No nasal discharge, no septal abnormalities noted. Tympanic membranes are normal and external auditory canals are clear. Oropharynx with no redness, swelling, or masses, exudates, or evidence of obstruction, uvula midline. Mucous membranes moist. Neck: Trachea midline, no thyromegaly or masses palpated, and no cervical lymphadenopathy. Supple, full range of motion without nuchal rigidity, or vertebral point tenderness. No Meningismus. Chest/axilla: Normal chest wall appearance and motion. Nontender with no deformity. No lesions are appreciated. Cardiovascular: Regular rate and rhythm with a normal S1 and S2. No gallops, murmurs, or rubs. Normal PMI, no JVD. No pulse deficits. Respiratory: Lungs have equal breath sounds bilaterally, clear to auscultation and percussion. No rales, rhonchi or wheezes noted. No increased work of breathing, no retractions or nasal flaring. Abdomen/GI: Soft, non-tender, with normal bowel sounds. No distension or tympany. No guarding or rebound. No evidence of tenderness throughout. Back: No spinal tenderness. No costovertebral tenderness. Full range of motion. Skin: Warm, dry with normal turgor. Normal color with no rashes, no lesions, and no evidence of cellulitis. Neuro: Awake and alert, GCS 15, oriented to person, place, time, and situation. Cranial nerves II-XII grossly intact. Motor strength 5/5 in all extremities. Sensory grossly intact. Cerebellar exam normal. Normal gait. 10:55 Musculoskeletal/extremity: ROM: intact in all extremities, full active range of motion, full passive range of motion, Circulation is intact in all extremities. Sensation intact. Compartment Syndrome exam of affected extremity: is normal. DVT Exam: no swelling, negative Homans' sign noted on exam, no appreciated bluish discoloration, no erythema, no increased warmth, pain, tenderness, that is mild. Vital Signs: 10:56 BP 123 / 99; Pulse 96; Resp 16; Temp 97.5(O); Pulse Ox 100% on R/A; Weight 78.02 kg vg1 (R); Height 5 ft. 5 in. ; Pain 0/10; 10:56 Body Mass Index 28.62 (78.02 kg, 165.1 cm) vg1 10:56 Pain Scale: Adult vg1 MDM: 10:47 Patient medically screened. gabriel 10:57 Differential diagnosis: drug withdrawal. acute psychotic break, depression, psychosis gabriel secondary to non-compliance. Data reviewed: vital signs, nurses notes. Consideration of Admission/Observation Escalation of care including admission/observation considered. I considered the following discharge prescriptions or medication management in the emergency department Medications were administered in the Emergency Department. See MAR. Care significantly affected by the following chronic conditions: bipolar, borderline personality do, anxiety. 07/21 10:53 Order name: Wound Care; Complete Time: 12:42 gabriel 07/21 10:54 Order name: Misc. Order: take usual meds; Complete Time: 11:35 gabriel Administered Medications: 11:35 Drug: Tetanus Toxoid,Adsorbed IM 0.5 ml {Transportation Consultant: [employer]. Exp: 10/04/2023. iw Lot #: [id number]. } Route: IM; Site: right deltoid; 11:35 Drug: LORazepam PO 1 mg Route: PO; iw Disposition Summary: 07/21/22 11:39 Discharge Ordered Location: Home gabriel Problem: new gabriel Symptoms: have improved gabriel Condition: Stable gabriel Diagnosis - Adjustment disorder with anxiety gabriel - Suicidal ideations - resolved gabriel - Bipolar disorder, unspecified gabriel - Abrasion of left forearm gabriel Followup: gabriel - With: Private Physician - When: 2 - 3 days - Reason: Recheck today's complaints, Continuance of care, Re-evaluation by your physician Followup: gabriel - With: - When: 2 - 3 days - Reason: Recheck today's complaints, Continuance of care, Re-evaluation by your physician Discharge Instructions: - Discharge Summary Sheet gabriel - Adjustment Disorder, Adult gabriel - Suicidal Feelings: How to Help Yourself gabriel - Helping Someone Who is Suicidal gabriel - Managing Bipolar Disorder gabriel Forms: - Medication Reconciliation Form gabriel - Thank You Letter gabriel - Antibiotic Education gabriel - Prescription Opioid Use gabriel Signatures: Amari Dietrich MD MD cha Williams, Irene, RN RN iw Maddie Sanders RN RN vg1
[2022-07-21 15:29] VITALS: BP 123/99; TEMP 97.5; O2SAT 100
== END 2022-07-21 12:46 | disposition home or self-care (01) ==
LOC: ER 10:29
DX: F43.22 Adjustment disorder with anxiety (principal); F31.9 Bipolar disorder, unspecified; S50.812A Abrasion of left forearm, initial encounter; Z23 Encounter for immunization
CPT/HCPCS: 90471; 90714; 99283

== ENCOUNTER 2022-10-28 10:19 | Emergency (ER) | payer OTHER ==
--- OUTSIDE RECORDS SUMMARY | 2022-10-28 10:44 | XMS REPORT | Continuity of Care Document ---
:1985 Author Organization [facility] [place] t Address [address]. [address] [place] [address] Care Team Providers Name Role Phone Sujata Villagran Primary Care Physician SANTIAGO SUMNER Attending Clinician Unavailable VANITA LUCIANO Attending Clinician Unavailable VANITA LUCIANO Attending Clinician Unavailable Sylvia Encarnacion MD Attending Clinician SYLVIA ENCARNACION Attending Clinician Unavailable Unknown, Attending Attending Clinician Unavailable Donald Hillman MD Attending Clinician Santiago Sumner MD Attending Clinician Darien Bauman Attending Clinician Donald Menendez MD Attending Clinician SUJATA SANTIAGO Attending Clinician Unavailable Doctor Unassigned, [place] Attending Clinician Unavailable DONALD MENENDEZ III Attending Clinician Unavailable Sujata Villagran Attending Clinician ROSAURA ANNA Attending Clinician Unavailable JARROD DEMARCO Attending Clinician Unavailable Lab, Ang - Db Attending Clinician Unavailable VANITA EPPERSON Attending Clinician Unavailable Vanita Le Attending Clinician NATY BOWLES Attending Clinician Unavailable RUBIN ELIAS Attending Clinician Unavailable Lloyd Aldrich DO Attending Clinician LARA DIETRICH Attending Clinician Unavailable Harmony MONCADA, Lara Attending Clinician Chris NGUYEN, Rangel Attending Clinician RANGEL GILLETTE Attending Clinician Unavailable Don Butterfield MD Attending Clinician DON BUTTERFIELD Attending Clinician Unavailable ROSANNA ORTEGA Attending Clinician Unavailable MARKUS NAVARRO Attending Clinician Unavailable Ermelinda NGUYEN, Leelee Attending Clinician LEELEE WADSWORTH Attending Clinician Unavailable 2, [facility] Attending Clinician Unavailable Kayli Wadsworth MD Attending Clinician Spike Lopes MD Attending Clinician Spike Wilkins MD Attending Clinician Yasmany Holder MD Attending Clinician José Luis Chapman DO Attending Clinician NILESH RAMÍREZ Attending Clinician Unavailable Prem Leonardo MD Attending Clinician Rosalina Warner Attending Clinician Unavailable Nilesh Ramírez MD Attending Clinician Melissa Hwang MD Attending Clinician Ron Campos MD, Sonia Attending Clinician [phone] Pob, [facility] Main Attending Clinician Unavailable Rubin Elias PA-C Attending Clinician Nurse, [facility] Attending Clinician Unavailable Faculty, [facility] Attending Clinician Unavailable Kayli Wadsworth MD Admitting Clinician Payers Payer Name Policy Type Policy Number Effective Date Expiration Date [facility] [id number] 2017 [facility] MEDICAID 00:00:00 [employer] [facility] [id number] 2020 [facility] 00:00:00 Problems Condition Condition Condition Status Onset Resolution Last Treating Co mments Source Name Details Category Date Date Treatment Clinician Date History of History of Disease Active U nivers blurry blurry 8-12 ity of vision vision 00:00: [place] 00 Medical Branch Nonintract Nonintract Disease Active U gisela able able 8-12 ity of episodic episodic 00:00: [place] headache, headache, 00 [facility] unspecifie unspecifie Br anch d headache d headache type type Abnormal Abnormal Disease Active Unive rs thyroid thyroid 8-12 ity of exam exam 00:00: Medical Branch Syncope, Syncope, Disease Active Unive rs unspecifie unspecifie 8-12 it y of d syncope d [place] Acute Acute Disease Active 2020-05 Univers vaginitis vaginitis 0-14 ity of 00:00: [place] [facility] Dysmenorrh Dysmenorrh Disease Active 2020-05 U gisela ea ea 0-14 ity of 00:00: [place] 00 Medical Branch Encounter Encounter Disease Active 2020-05 Uni vers for for 0-14 ity of surveillan surve[place]an [place] ce of Medical vaginal vaginal Branch ring ring hormonal hormonal contracept contracept tino device tino device Folliculit Folliculit Disease Active 2020-05 U gisela is is 0-14 ity of 00:00: [place] [facility] Normal Normal Disease Active 2020-05 Univers gynecologi gynecologi 0-14 it y of c c 00:00: [place] examinatio examinatio 00 Me dical n n Branch Pain in Pain in Disease Active 2020-05 Univers pelvis pelvis 0-14 ity of 00:00: [place] [facility] 39 weeks 39 weeks Disease Active Unive rs gestation gestation 4-20 ity of of of 00:00: [place] 00 [facility] Branch Low-lying Low-lying Disease Active Uni vers placenta placenta 4-20 ity of 00:00: [place] [facility] Bipolar Bipolar Disease Active Univers disorder disorder 4-20 ity of 00:00: [place] 00 Medical Branch Obesity Obesity Disease Active Univers (BMI (BMI 8-29 ity of 30-39.9) 30-39.9) 00:00: [place] [facility] Borderline Borderline Disease Active 2012-05 U gisela personalit personalit 2-01 it y of y disorder y disorder [place] in adult 00 Medica l Branch Anxiety Anxiety Problem Active 2022-08-22 Me moria (finding) (finding) 13:30:27 l Active [place] Problem 08/22/2022 [facility] 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 13:30:27 l hyperactiv hyperactiv He rmann ity ity disorder disorder (disorder) (disorder) Active Problem 08/22/2022 [facility] 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 Herm antoinette of of (disorder) (disorder) Active Problem 08/22/2022 [facility] Degenerati Degenerat Problem Active 2022-08-22 Memoria on of ion of 13:30:27 l lumbar lumbar [place] interverte interverte bral disc bral disc (disorder) (disorder) Active Problem 08/22/2022 [facility] Household, Household Problem Active 2022-08-22 Memoria family and , family 13:30:27 l support and 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 (finding) finding (finding) Active Problem 08/22/2022 [facility] Hypothyroi Hypothyro Problem Active 2022-08-22 Memoria dism idism 13:30:27 l (disorder) (disorder) He rmann Active Problem 08/22/2022 [facility] Lumbar Lumbar Problem Active 2022-08-22 [facility] radiculopa radiculopa 13:30:27 l thy thy [place] (disorder) (disorder) Active Problem 08/22/2022 [facility] Sciatica Sciatica Problem Active 2022-08-22 Memoria (disorder) (disorder) 13:30:27 l Active Timothy Problem 08/22/2022 [facility] Acute Acute Problem Active Common vaginitis vaginitis Spir it - [facility] Encounter Encounter Problem Active Com mon for for Spirit gynecologi gynecologi - [facility] kyra kyra examinatio examinatio Brianna kes n without n without Medi kyra abnormal abnormal Center finding finding Folliculit Folliculit Problem Active C ommon is is Spirit [facility] Encounter Encounter Problem Active Com mon for for Spirit surveillan surveillan - [facility] ce of ce of vaginal vaginal [facility] ring ring Medical hormonal hormonal Center contracept contracept tino device tino device Pelvic Pelvic Problem Active Common pain pain Spirit [facility] Painful Painful Problem Active Common menstrual menstrual Spir it periods periods - [facility] Allergies, Adverse Reactions, Alerts Allergy Allergy Status Severity Reaction(s) Onset Inactive Treating Comm ents Source Name Type Date Date Clinician NO KNOWN Drug Active Univers ALLERGIE Class ity of S [facility] Family History Family Member Diagnosis Comments Start Date Stop Date Source Natural brother Psychiatry Universit y [facility] [place] Natural father Arthritis [facility] Natural father Depression [facility] Natural father Psychiatry [facility] Natural mother Depression [facility] Natural mother Diabetes [facility] Natural mother Psychiatry [facility] Natural mother Alcohol/Drug Universi ty [facility] [place] Family member Asthma [facility] Family member defects Universi ty [facility] [place] Family member Breast Cancer Universi ty [facility] [place] Family member Cancer [facility] Family member Colon Cancer Universit y [facility] [place] Family member Genetic [facility] Family member Heart [facility] Hypertension [facility] [place] Family member Mental retardation Uni versity [facility] [place] Family member Neurological Universit y [facility] [place] Family member Osteoporosis Universit y [facility] [place] Family member Ovarian Cancer Univers ity [facility] [place] Family member Uterine Cancer Univers [facility] Social History Social Habit Start Date Stop Date Quantity Comments Source History of tobacco Cigarette Smoker [facility] use [facility] Exposure to 2022-09-19 2022-09-29 Not sure University SARS-CoV-2 (event) 00:00:00 17:39:00 [facility] Alcohol intake 2022-09-29 2022-09-29 Ex-drinker University 00:00:00 00:00:00 (finding) [facility] Tobacco use and 2021-12-12 2021-12-12 Smokeless Universit y of exposure 00:00:00 00:00:00 tobacco non-user [facility] dical Branch Cigarettes smoked 2021-12-12 2021-12-12 Univers ity of current (pack per 00:00:00 00:00:00 ) - Reported Branch Cigarette 2021-12-12 2021-12-12 University of pack-years 00:00:00 00:00:00 [facility] Tobacco Comment 2021-12-12 2021-12-12 Last cigarette Unive rsity of 00:00:00 00:00:00 03/15/2019; [facility] vaping [place] Sex Ass[birth year] At [birth year] Universit y of 00:00:00 00:00:00 [facility] Smoking Status Start Date Stop Date Source Tobacco smoking status 2022-08-19 16:36:49 Leonel Aguirre Medications Ordered Filled Start Stop Current Ordering Indication Dosage Frequency Signature Comments Components Source Medication Medication Date Date Medication? Clinician (SIG) Name Name desvenlafax Yes [id number] 100mg Take 1 Univers ine 6-27 tablet by ity of succinate 00:00: mouth in [place] [facility] 100 mg 24 00 the Medical hr tablet morning. Branch ARIPiprazol Yes [id number] 15mg Take 1 Univers e (ABILIFY) 6-27 tablet by ity of 15 mg 00:00: mouth in [place] tablet 00 the Medical morning. Branch clonazePAM 0 Yes [id number] .5mg Take 1 U nivers 0.5 mg 6-06 tablet by ity of tablet 00:00: mouth once [place] 00 daily as Medical needed for Branch Other (Anxiety). clonazePAM 2022- Yes [id number] .5mg Take 1 U nivers 0.5 mg 6-06 tablet by ity of tablet 00:00: mouth once [place] 00 daily as Medical needed for Branch Other (Anxiety). METHOCARBAM 2022-0 Yes [id number] TAKE 1 Univers OL 500 mg 6-02 TABLET BY ity o f tablet 00:00: MOUTH [place] 00 TWICE A Medical DAY IN THE Branch MORNING AND IN THE EVENING METHOCARBAM 2022-0 Yes [id number] TAKE 1 Univers OL 500 mg 6-02 TABLET BY ity o f tablet 00:00: MOUTH [place] 00 TWICE A Medical DAY IN THE Branch MORNING AND IN THE EVENING METHOCARBAM 0 Yes [id number] TAKE 1 Univers OL 500 mg 6-02 TABLET BY ity o f tablet 00:00: MOUTH [place] 00 TWICE A Medical DAY IN THE Branch MORNING AND IN THE EVENING ibuprofen 0 Yes [id number] 600mg Take 1 Univers 600 mg 5-30 [id number] tablet by ity of tablet 00:00: mouth [place] 00 every 6 Medical (six) Branch hours as needed for Pain (scale 4-6) or Pain (scale 1-3). ibuprofen Yes [id number] 600mg Take 1 Univers 600 mg 5-30 [id number] tablet by ity of tablet 00:00: mouth [place] 00 every 6 Medical (six) Branch hours as needed for Pain (scale 4-6) or Pain (scale 1-3). ibuprofen Yes [id number] 600mg Take 1 Univers 600 mg 5-30 [id number] tablet by ity of tablet 00:00: mouth [place] 00 every 6 Medical (six) Branch hours as needed for Pain (scale 4-6) or Pain (scale 1-3). ibuprofen Yes [id number] 600mg Take 1 Univers 600 mg 5-30 [id number] tablet by ity of tablet 00:00: mouth [place] 00 every 6 Medical (six) Branch hours as needed for Pain (scale 4-6) or Pain (scale 1-3). ibuprofen Yes [id number] 600mg Take 1 Univers 600 mg 5-30 [id number] tablet by ity of tablet 00:00: mouth [place] 00 every 6 Medical (six) Branch hours as needed for Pain (scale 4-6) or Pain (scale 1-3). ibuprofen Yes [id number] 600mg Take 1 Univers 600 mg 5-30 [id number] tablet by ity of tablet 00:00: mouth [place] 00 every 6 Medical (six) Branch hours as needed for Pain (scale 4-6) or Pain (scale 1-3). lisdexamfet 0 Yes [id number] 50mg Take 1 Univers amine 50 mg 5-26 capsule by it y of capsule 00:00: mouth [place] 00 every Medical morning. Branch desvenlafax 2022-0 Yes [id number] 100mg Take 1 Univers ine 5-26 tablet by ity of succinate 00:00: [place] 100 mg 24 00 the Medical hr tablet morning. Branch ARIPiprazol 3-0 Yes [id number] 15mg Take 1 Univers e (ABILIFY) 5-26 tablet by ity of 15 mg 00:00: mouth in [place] tablet 00 the Medical morning. Branch lisdexamfet 2022-0 Yes [id number] 50mg Take 1 Univers amine 50 mg 5-26 capsule by it y of capsule 00:00: mouth [place] 00 every Medical morning. Branch desvenlafax 3-0 Yes [id number] 100mg Take 1 Univers ine 5-26 tablet by ity of succinate 00:00: [place] 100 mg 24 00 the Medical hr tablet morning. Branch ARIPiprazol 2022-0 Yes [id number] 15mg Take 1 Univers e (ABILIFY) 5-26 tablet by ity of 15 mg 00:00: mouth in [place] tablet 00 the Medical morning. Branch lisdexamfet 2022-0 Yes [id number] 50mg Take 1 Univers amine 50 mg 5-26 capsule by it y of capsule 00:00: mouth [place] 00 every Medical morning. Branch desvenlafax 3-0 Yes [id number] 100mg Take 1 Univers ine 5-26 tablet by ity of succinate 00:00: mouth in [place] 100 mg 24 00 the Medical hr tablet morning. Branch ARIPiprazol 2022-0 Yes [id number] 15mg Take 1 Univers e (ABILIFY) 5-26 tablet by ity of 15 mg 00:00: mouth in [place] tablet 00 the Medical morning. Branch lisdexamfet 2022-0 Yes [id number] 50mg Take 1 Univers amine 50 mg 5-26 capsule by it y of capsule 00:00: mouth [place] 00 every Medical morning. Branch desvenlafax 3-0 Yes [id number] 100mg Take 1 Univers ine 5-26 tablet by ity of succinate 00:00: mouth [place] 100 mg 24 00 the Medical hr tablet morning. Branch ARIPiprazol 2022-0 Yes [id number] 15mg Take 1 Univers e (ABILIFY) 5-26 tablet by ity of 15 mg 00:00: mouth in [place] tablet 00 the Medical morning. Branch lisdexamfet 3-0 Yes [id number] 50mg Take 1 Univers amine 50 mg 5-26 capsule by it y of capsule 00:00: mouth [place] 00 every Medical morning. Branch desvenlafax 2022-0 Yes 100mg Take 1 Univers ine 5-26 tablet by ity of succinate 00:00: mouth in [place] 100 mg 24 00 the Medical hr tablet morning. Branch ARIPiprazol 2022-0 Yes [id number] 15mg Take 1 Univers e (ABILIFY) 5-26 tablet by ity of 15 mg 00:00: mouth in [place] tablet 00 the Medical morning. Branch lisdexamfet 2022-0 Yes [id number] 50mg Take 1 Univers amine 50 mg 5-26 capsule by it y of capsule 00:00: mouth [place] 00 every Medical morning. Branch desvenlafax 2022-0 Yes 100mg Take 1 Univers ine 5-26 tablet by ity of succinate 00:00: mouth [place] 100 mg 24 00 the Medical hr tablet morning. Branch ARIPiprazol 2022-0 Yes [id number] 15mg Take 1 Univers e (ABILIFY) 5-26 tablet by ity of 15 mg 00:00: mouth in [place] tablet 00 the Medical morning. Branch lisdexamfet 2022-0 Yes [id number] 50mg Take 1 Univers amine 50 mg 5-26 capsule by it y of capsule 00:00: mouth [place] 00 every Medical morning. Branch desvenlafax 2022-0 Yes 100mg Take 1 Univers ine 5-26 tablet by ity of succinate 00:00: mouth [place] 100 mg 24 00 the Medical hr tablet morning. Branch ARIPiprazol 2022-0 Yes [id number] 15mg Take 1 Univers e (ABILIFY) 5-26 tablet by ity of 15 mg 00:00: mouth in [place] tablet 00 the Medical morning. Branch lisdexamfet 2022-0 Yes [id number] 50mg Take 1 Univers amine 50 mg 5-26 capsule by it y of capsule 00:00: mouth [place] 00 every Medical morning. Branch desvenlafax 2022-0 3- No 100mg Take 1 Univers ine 5-26 06-26 tablet by ity of succinate 00:00: 00:00 mouth in [place] 100 mg 24 00 :00 the Medical hr tablet morning. Branch ARIPiprazol 2022-0 3- No [id number] 15mg Take 1 Univers e (ABILIFY) 5-26 - tablet by it y of 15 mg 00:00: 00:00 mouth in [place] tablet 00 :00 the Medical morning. Branch clonazePAM 3-0 Yes [id number] .5mg Take 1 U nivers 0.5 mg 5-03 tablet by ity of tablet 00:00: mouth once [place] 00 daily as Medical needed for Branch Other (Anxiety). clonazePAM 2023-0 Yes [id number] .5mg Take 1 U nivers 0.5 mg 5-03 tablet by ity of tablet 00:00: mouth once [place] 00 daily as Medical needed for Branch Other (Anxiety). clonazePAM 2023-0 Yes [id number] .5mg Take 1 U nivers 0.5 mg 5-03 tablet by ity of tablet 00:00: mouth once [place] 00 daily as Medical needed for Branch Other (Anxiety). clonazePAM 3-0 Yes [id number] .5mg Take 1 U nivers 0.5 mg 5-03 tablet by ity of tablet 00:00: mouth once [place] 00 daily as Medical needed for Branch Other (Anxiety). clonazePAM 2023-0 Yes [id number] .5mg Take 1 U nivers 0.5 mg 5-03 tablet by ity of tablet 00:00: mouth once [place] 00 daily as Medical needed for Branch Other (Anxiety). clonazePAM 2023-0 Yes [id number] .5mg Take 1 U nivers 0.5 mg 5-03 tablet by ity of tablet 00:00: mouth once [place] 00 daily as Medical needed for Branch Other (Anxiety). clonazePAM 2023-0 Yes [id number] .5mg Take 1 U nivers 0.5 mg 5-03 tablet by ity of tablet 00:00: mouth once [place] 00 daily as Medical needed for Branch Other (Anxiety). clonazePAM 2023-0 Yes [id number] .5mg Take 1 U nivers 0.5 mg 5-03 tablet by ity of tablet 00:00: mouth once [place] 00 daily as Medical needed for Branch Other (Anxiety). clonazePAM 2023-0 2023- No [id number] .5mg Take 1 Univers 0.5 mg 5-03 06-05 tablet by ity of tablet 00:00: 00:00 mouth [place] 00 :00 daily as Medical needed for Branch Other (Anxiety). clonazePAM 2023-0 2023- No [id number] .5mg Take 1 Univers 0.5 mg 5-03 06-05 tablet by ity of tablet 00:00: 00:00 mouth [place] 00 :00 daily as Medical needed for Branch Other (Anxiety). gabapentin 2023-0 Yes 300mg Take 1 Univ ers 300 mg 4-26 capsule by ity of capsule 00:00: mouth in [place] 00 the Medical morning Branch and 1 capsule in the evening. gabapentin 2023-0 Yes 300mg Take 1 Univ ers 300 mg 4-26 capsule by ity of capsule 00:00: mouth in [place] 00 the Medical morning Branch and 1 capsule in the evening. gabapentin 2023-0 Yes 300mg Take 1 Univ ers 300 mg 4-26 capsule by ity of capsule 00:00: mouth in [place] 00 the Medical morning Branch and 1 capsule in the evening. gabapentin 2023-0 Yes 300mg Take 1 Univ ers 300 mg 4-26 capsule by ity of capsule 00:00: mouth in [place] 00 the Medical morning Branch and 1 capsule in the evening. gabapentin 2023-0 Yes 300mg Take 1 Univ ers 300 mg 4-26 capsule by ity of capsule 00:00: mouth in [place] 00 the Medical morning Branch and 1 capsule in the evening. gabapentin 2023-0 Yes 300mg Take 1 Univ ers 300 mg 4-26 capsule by ity of capsule 00:00: mouth in [place] 00 the Medical morning Branch and 1 capsule in the evening. desvenlafax 2023-0 Yes [id number] 100mg Take 1 Univers ine 4-25 tablet by ity of succinate 00:00: mouth in [facility] s 100 mg 24 00 the Medical hr tablet morning. Branch clonazePAM 2023-0 Yes [id number] .5mg Take 1 U nivers 0.5 mg 4-25 tablet by ity of tablet 00:00: mouth once [place] 00 daily as Medical needed for Branch Other (Anxiety). ARIPiprazol 2023-0 Yes [id number] 15mg Take 1 Univers e (ABILIFY) 4-25 tablet by ity of 15 mg 00:00: mouth in [place] tablet 00 the Medical morning. Branch desvenlafax 2023-0 Yes [id number] 100mg Take 1 Univers ine 4-25 tablet by ity of succinate 00:00: mouth [place] 100 mg 24 00 the Medical hr tablet morning. Branch ARIPiprazol 2022-0 Yes [id number] 15mg Take 1 Univers e (ABILIFY) 4-25 tablet by ity of 15 mg 00:00: mouth in [place] tablet 00 the Medical morning. Branch desvenlafax 2022-0 Yes [id number] 100mg Take 1 Univers ine 4-25 tablet by ity of succinate 00:00: mouth [place] 100 mg 24 00 the Medical hr tablet morning. Branch ARIPiprazol 2022-0 Yes [id number] 15mg Take 1 Univers e (ABILIFY) 4-25 tablet by ity of 15 mg 00:00: mouth in [place] tablet 00 the Medical morning. Branch desvenlafax 2022-0 2022- No 100mg Take 1 Univers ine 4-25 05-26 tablet by ity of succinate 00:00: 00:00 mouth in [place] 100 mg 24 00 :00 the Medical hr tablet morning. Branch ARIPiprazol 0 2022- No [id number] 15mg Take 1 Univers e (ABILIFY) 4-25 05-26 tablet by it y of 15 mg 00:00: 00:00 mouth in [place] tablet 00 :00 the Medical morning. Branch desvenlafax 2022-0 2022- No 100mg Take 1 Univers ine 4-25 05-26 tablet by ity of succinate 00:00: 00:00 mouth in [place] 100 mg 24 00 :00 the Medical hr tablet morning. Branch ARIPiprazol 2022-0 2022- No [id number] 15mg Take 1 Univers e (ABILIFY) 4-25 05-26 tablet by it y of 15 mg 00:00: 00:00 mouth in [place] tablet 00 :00 the Medical morning. Branch clonazePAM 2022-0 2022- No [id number] .5mg Take 1 Univers 0.5 mg 4-25 05-03 tablet by ity of tablet 00:00: 00:00 mouth [place] 00 :00 daily as Medical needed for Branch Other (Anxiety). clonazePAM 2022-0 2022- No [id number] .5mg Take 1 Univers 0.5 mg 4-25 05-03 tablet by ity of tablet 00:00: 00:00 mouth [place] 00 :00 daily as Medical needed for Branch Other (Anxiety). lisdexamfet 2023-0 Yes [id number] 50mg Take 1 Univers amine 50 mg 4-11 capsule by it y of capsule 00:00: mouth [place] 00 every Medical morning. Branch lisdexamfet 2023-0 Yes [id number] 50mg Take 1 Univers amine 50 mg 4-11 capsule by it y of capsule 00:00: mouth [place] 00 every Medical morning. Branch lisdexamfet 2023-0 Yes [id number] 50mg Take 1 Univers amine 50 mg 4-11 capsule by it y of capsule 00:00: mouth [place] 00 every Medical morning. Branch lisdexamfet 2023-0 Yes [id number] 50mg Take 1 Univers amine 50 mg 4-11 capsule by it y of capsule 00:00: mouth [place] 00 every Medical morning. Branch lisdexamfet 2023-0 2023- No [id number] 50mg Take 1 Univers amine 50 mg 4-11 05-26 capsule by i ty of capsule 00:00: 00:00 mouth [place] 00 :00 every Medical morning. Branch lisdexamfet 2023-0 2023- No [id number] 50mg Take 1 Univers amine 50 mg 4-11 05-26 capsule by i ty of capsule 00:00: 00:00 mouth [place] 00 :00 every Medical morning. 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 Branch lisdexamfet 2022-0 Yes [id number] 50mg Take 1 Univers amine 50 mg 3-07 capsule by it y of capsule 00:00: mouth [place] 00 every Medical morning. Branch lisdexamfet 2022-0 Yes [id number] 50mg Take 1 Univers amine 50 mg 3-07 capsule by it y of capsule 00:00: mouth [place] 00 every Medical morning. Branch lisdexamfet 2022-0 3- No [id number] 50mg Take 1 Univers amine 50 mg 3-07 04-10 capsule by i ty of capsule 00:00: 00:00 mouth [place] 00 :00 every Medical morning. Branch lisdexamfet 2022-0 3- No [id number] 50mg Take 1 Univers amine 50 mg 3-07 04-10 capsule by i ty of capsule 00:00: 00:00 mouth [place] 00 :00 every Medical morning. Branch lisdexamfet 2022-0 3- No [id number] 50mg Take 1 Univers amine 50 mg 3-07 04-10 capsule by i ty of capsule 00:00: 00:00 mouth [place] 00 :00 every Medical morning. Branch desvenlafax 2022-0 Yes [id number] 100mg Take 1 Univers ine 2-22 tablet by ity of succinate 00:00: mouth in [place] 100 mg 24 00 the Medical hr tablet morning. Branch clonazePAM 2022-0 Yes [id number] .5mg Take 1 U nivers 0.5 mg 2-22 tablet by ity of tablet 00:00: mouth once [place] 00 daily as Medical needed for Branch Other (Anxiety). ARIPiprazol 2022-0 Yes [id number] 15mg Take 1 [facility] (ABILIFY) 2-22 tablet by [facility] of 15 mg 00:00: mouth in [place] tablet 00 the Medical morning. Branch desvenlafax 2022-0 Yes [id number] 100mg Take 1 [facility] ine 2-22 tablet by [facility] succinate 00:00: mouth [place] 100 mg 24 00 the Medical hr tablet morning. Branch clonazePAM 3-0 Yes [id number] .5mg Take 1 [facility] n[facility] 0.5 mg 2-22 tablet by it[facility] of tablet 00:00: mouth once [place] 00 daily as Medical needed for Branch Other (Anxiety). ARIPiprazol 3-0 Yes [id number] 15mg Take 1 [facility] (ABILIFY) 2-22 tablet by [facility] of 15 mg 00:00: mouth in [place] tablet 00 the Medical morning. Branch desvenlafax 3-0 Yes [id number] 100mg Take 1 [facility] ine 2-22 tablet by [facility] succinate 00:00: mouth [place] 100 mg 24 00 the Medical hr tablet morning. Branch clonazePAM 3-0 Yes [id number] .5mg Take 1 [facility] nivers 0.5 mg 2-22 tablet by it[facility] of tablet 00:00: mouth once [place] 00 daily as Medical needed for Branch Other (Anxiety). ARIPiprazol 2022-0 Yes [id number] 15mg Take 1 [facility] (ABILIFY) 2-22 tablet by [facility] of 15 mg 00:00: mouth in [place] tablet 00 the Medical morning. Branch desvenlafax 3-0 Yes [id number] 100mg Take 1 [facility] ine 2-22 tablet by [facility] succinate 00:00: mouth [place] 100 mg 24 00 the Medical hr tablet morning. Branch clonazePAM 3-0 Yes [id number] .5mg Take 1 [facility] nivers 0.5 mg 2-22 tablet by ity of tablet 00:00: mouth once [place] 00 daily as Medical needed for Branch Other (Anxiety). ARIPiprazol 3-0 Yes [id number] 15mg Take 1 [facility] (ABILIFY) 2-22 tablet by [facility] of 15 mg 00:00: mouth in [place] tablet 00 the Medical morning. Branch desvenlafax 3-0 Yes [id number] 100mg Take 1 [facility] ine 2-22 tablet by [facility] succinate 00:00: mouth [place] 100 mg 24 00 the Medical hr tablet morning. Branch clonazePAM 3-0 Yes [id number] .5mg Take 1 [facility] nivers 0.5 mg 2-22 tablet by it[facility] of tablet 00:00: mouth once [place] 00 daily as Medical needed for Branch Other (Anxiety). ARIPiprazol 3-0 Yes [id number] 15mg Take 1 [facility] (ABILIFY) 2-22 tablet by [facility] of 15 mg 00:00: mouth in [place] tablet 00 the Medical morning. Branch desvenlafax 2022-0 Yes [id number] 100mg Take 1 [facility] ine 2-22 tablet by [facility] succinate 00:00: mouth [place] 100 mg 24 00 the Medical hr tablet morning. Branch clonazePAM 2022-0 Yes [id number] .5mg Take 1 [facility] nivers 0.5 mg 2-22 tablet by ity of tablet 00:00: mouth once [place] 00 daily as Medical needed for Branch Other (Anxiety). ARIPiprazol 2022-0 Yes [id number] 15mg Take 1 [facility] (ABILIFY) 2-22 tablet by it[facility] of 15 mg 00:00: mouth in [place] tablet 00 the Medical morning. Branch desvenlafax 2022-0 Yes [id number] 100mg Take 1 [facility] ine 2-22 tablet by [facility] succinate 00:00: mouth [place] 100 mg 24 00 the Medical hr tablet morning. Branch clonazePAM 2022-0 Yes [id number] .5mg Take 1 [facility] nivers 0.5 mg 2-22 tablet by it[facility] of tablet 00:00: mouth once [place] 00 daily as Medical needed for Branch Other (Anxiety). ARIPiprazol 2022-0 Yes [id number] 15mg Take 1 [facility] (ABILIFY) 2-22 tablet by [facility] of 15 mg 00:00: mouth in [place] tablet 00 the Medical morning. Branch desvenlafax 2022-0 Yes [id number] 100mg Take 1 [facility] ine 2-22 tablet by [facility] succinate 00:00: mouth [place] 100 mg 24 00 the Medical hr tablet morning. Branch clonazePAM 3-0 Yes [id number] .5mg Take 1 [facility] nivers 0.5 mg 2-22 tablet by ity of tablet 00:00: mouth once [place] 00 daily as Medical needed for Branch Other (Anxiety). ARIPiprazol 2022-0 Yes [id number] 15mg Take 1 [facility] (ABILIFY) 2-22 tablet by [facility] of 15 mg 00:00: mouth in [place] tablet 00 the Medical morning. Branch desvenlafax 2022-2022- No [id number] 100mg Take 1 [facility] in[facility] 2-22 -25 tablet by it[facility] of succinate 00:00: 00:00 mouth in [place] 100 mg 24 00 :00 the Medical hr tablet morning. [place] clonazePAM 2022-0 2022- No [id number] .5mg Take 1 [facility] 0.5 mg 2-22 08-25 tablet by [facility] tablet 00:00: 00:00 mouth [place] 00 :00 daily as Medical needed for Branch Other (Anxiety). ARIPiprazol 2022-2022- No [id number] 15mg Take 1 [facility] (ABILIFY) 2-22 08-25 tablet by it y of 15 mg 00:00: 00:00 mouth in [place] tablet 00 :00 the Medical morning. [place] desvenlafax 2022-2022- No [id number] 100mg Take 1 [facility] in[facility] 2-22 08-25 tablet by it[facility] of succinate 00:00: 00:00 mouth in [place] 100 mg 24 00 :00 the Medical hr tablet morning. [facility] clonazePAM 2022-2022- No [id number] .5mg Take 1 [facility] 0.5 mg 06-24-25 tablet by [facility] tablet 00:00: 00:00 mouth [place] 00 :00 daily as Medical needed for Branch Other (Anxiety). ARIPiprazol 2022-2022- No [id number] 15mg Take 1 [facility] (ABILIFY) 06-24-25 tablet by it y of 15 mg 00:00: 00:00 mouth in [place] tablet 00 :00 the Medical morning. 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, kg, 06/03/22 10:05:00 [place] M[place], Weight METHOCARBAM 0 Yes [id number] TAKE 1 [facility] OL 500 mg 1-31 TABLET BY ity o f tablet 00:00: MOUTH IN [place] 00 THE Medical MORNING Branch AND IN THE EVENING METHOCARBAM Yes [id number] TAKE 1 [facility] OL 500 mg 1-31 TABLET BY ity o f tablet 00:00: MOUTH IN [place] 00 THE Medical MORNING Branch AND IN THE EVENING METHOCARBAM Yes [id number] TAKE 1 [facility] OL 500 mg 1-31 TABLET BY ity o f tablet 00:00: MOUTH IN [place] 00 THE Medical MORNING Branch AND IN THE EVENING METHOCARBAM Yes [id number] TAKE 1 [facility] OL 500 mg 1-31 TABLET BY ity o f tablet 00:00: MOUTH IN [place] 00 THE Medical MORNING Branch AND IN THE EVENING METHOCARBAM Yes [id number] TAKE 1 [facility] OL 500 mg 1-31 TABLET BY ity o f tablet 00:00: MOUTH IN [place] 00 THE Medical MORNING Branch AND IN THE EVENING METHOCARBAM Yes [id number] TAKE 1 [facility] 500 mg 1-31 TABLET BY ity o f tablet 00:00: MOUTH IN [place] 00 THE Medical MORNING Branch AND IN THE EVENING METHOCARBAM Yes [id number] TAKE 1 [facility] OL 500 mg 1-31 TABLET BY ity o f tablet 00:00: MOUTH IN [place] 00 THE Medical MORNING Branch AND IN THE EVENING METHOCARBAM Yes [id number] TAKE 1 [facility] OL 500 mg 1-31 TABLET BY ity o f tablet 00:00: MOUTH IN [place] 00 THE Medical MORNING Branch AND IN THE EVENING METHOCARBAM Yes [id number] TAKE 1 [facility] OL 500 mg 1-31 TABLET BY ity o f tablet 00:00: MOUTH IN [place] 00 THE Medical MORNING Branch AND IN THE EVENING METHOCARBAM Yes [id number] TAKE 1 [facility] 500 mg 1-31 TABLET BY ity o f tablet 00:00: MOUTH IN [place] 00 THE Medical MORNING Branch AND IN THE EVENING METHOCARBAM Yes [id number] TAKE 1 [facility] 500 mg 1-31 TABLET BY ity o f tablet 00:00: MOUTH IN [place] 00 THE Medical MORNING Branch AND IN THE EVENING METHOCARBAM Yes [id number] TAKE 1 [facility] OL 500 mg 1-31 TABLET BY ity o f tablet 00:00: MOUTH IN [place] 00 THE Medical MORNING Branch AND IN THE EVENING METHOCARBAM Yes [id number] TAKE 1 [facility] 500 mg 1-31 TABLET BY ity o f tablet 00:00: MOUTH IN [place] 00 THE Medical MORNING Branch AND IN THE EVENING METHOCARBAM Yes [id number] TAKE 1 [facility] 500 mg 1-31 TABLET BY ity o f tablet 00:00: MOUTH IN [place] 00 THE Medical MORNING Branch AND IN THE EVENING METHOCARBAM Yes [id number] TAKE 1 [facility] 500 mg 1-31 TABLET BY ity o f tablet 00:00: MOUTH IN [place] 00 THE Medical MORNING Branch AND IN THE EVENING METHOCARBAM Yes [id number] TAKE 1 [facility] OL 500 mg 1-31 TABLET BY ity o f tablet 00:00: MOUTH IN [place] 00 THE Medical MORNING Branch AND IN THE EVENING METHOCARBAM Yes [id number] TAKE 1 [facility] OL 500 mg 1-31 TABLET BY ity o f tablet 00:00: MOUTH IN [place] 00 THE Medical MORNING Branch AND IN THE EVENING METHOCARBAM Yes [id number] TAKE 1 [facility] OL 500 mg 1-31 TABLET BY ity o f tablet 00:00: MOUTH IN [place] 00 THE Medical MORNING Branch AND IN THE EVENING METHOCARBAM Yes [id number] TAKE 1 [facility] OL 500 mg 1-31 TABLET BY ity o f tablet 00:00: MOUTH IN [place] 00 THE Medical MORNING Branch AND IN THE EVENING METHOCARBAM Yes [id number] TAKE 1 [facility] OL 500 mg 1-31 TABLET BY ity o f tablet 00:00: MOUTH IN [place] 00 THE Medical MORNING Branch AND IN THE EVENING METHOCARBAM Yes [id number] TAKE 1 [facility] OL 500 mg 1-31 TABLET BY ity o f tablet 00:00: MOUTH IN [place] [address] THE Medical MORNING Branch AND IN THE EVENING METHOCARBAM Yes [id number] TAKE 1 [facility] OL 500 mg 1-31 TABLET BY ity o f tablet 00:00: MOUTH IN [place] 00 THE Medical MORNING Branch AND IN THE EVENING METHOCARBAM 2022-0 Yes [id number] TAKE 1 [facility] OL 500 mg 1-31 TABLET BY ity o f tablet 00:00: MOUTH IN [place] 00 THE Medical MORNING Branch AND IN THE EVENING METHOCARBAM 2022-0 Yes [id number] TAKE 1 [facility] OL 500 mg 1-31 TABLET BY ity o f tablet 00:00: MOUTH IN [place] 00 THE Medical MORNING Branch AND IN THE EVENING METHOCARBAM 2022-0 2023- No [id number] TAKE 1 [facility] OL 500 mg 1-31 06-02 TABLET BY ity of tablet 00:00: 00:00 MOUTH IN [place] 00 :00 THE Medical MORNING Branch AND IN THE EVENING METHOCARBAM 2022-0 2023- No [id number] TAKE 1 [facility] OL 500 mg 1-31 -02 TABLET BY ity of tablet 00:00: 00:00 MOUTH IN [place] 00 :00 THE Medical MORNING Branch AND IN THE EVENING METHOCARBAM 2022-0 3- No [id number] TAKE 1 [facility] OL 500 mg 1-31 -02 TABLET BY ity of tablet 00:00: 00:00 MOUTH IN [place] 00 :00 THE Medical MORNING Branch AND IN THE EVENING lisdexamfet 2022-0 Yes [id number] 50mg Take 1 [facility] amine 50 mg 1-27 capsule by it y of capsule 00:00: mouth [place] 00 every Medical morning. Branch lisdexamfet 2022-0 Yes [id number] 50mg Take 1 [facility] amine 50 mg 1-27 capsule by it y of capsule 00:00: mouth [place] 00 every Medical morning. Branch lisdexamfet 3-0 Yes [id number] 50mg Take 1 [facility] amine 50 mg 1-27 capsule by it y of capsule 00:00: mouth [place] 00 every Medical morning. Branch lisdexamfet 3-0 Yes [id number] 50mg Take 1 [facility] amine 50 mg 1-27 capsule by it y of capsule 00:00: mouth [place] 00 every Medical morning. Branch lisdexamfet 3-0 Yes [id number] 50mg Take 1 [facility] amine 50 mg 1-27 capsule by it y of capsule 00:00: mouth [place] 00 every Medical morning. Branch lisdexamfet 3-0 Yes [id number] 50mg Take 1 [facility] amine 50 mg 1-27 capsule by it y of capsule 00:00: mouth [place] 00 every Medical morning. Branch lisdexamfet 2022-0 Yes [id number] 50mg Take 1 [facility] amine 50 mg 1-27 capsule by it y of capsule 00:00: mouth [place] 00 every Medical morning. Branch lisdexamfet 2022-0 Yes [id number] 50mg Take 1 [facility] amine 50 mg 1-27 capsule by it y of capsule 00:00: mouth [place] 00 every Medical morning. Branch lisdexamfet 2022-0 Yes [id number] 50mg Take 1 [facility] amine 50 mg 1-27 capsule by it y of capsule 00:00: mouth [place] 00 every Medical morning. Branch lisdexamfet 2022-0 Yes [id number] 50mg Take 1 [facility] amine 50 mg 1-27 capsule by it y of capsule 00:00: mouth [place] 00 every Medical morning. Branch lisdexamfet 2022-0 Yes [id number] 50mg Take 1 [facility] amine 50 mg 1-27 capsule by it y of capsule 00:00: mouth [place] 00 every Medical morning. Branch lisdexamfet 2022-0 Yes [id number] 50mg Take 1 [facility] amine 50 mg 1-27 capsule by it y of capsule 00:00: mouth [place] 00 every Medical morning. Branch lisdexamfet 2022-0 Yes [id number] 50mg Take 1 [facility] amine 50 mg 1-27 capsule by it y of capsule 00:00: mouth [place] 00 every Medical morning. Branch lisdexamfet 2022-0 3- No [id number] 50mg Take 1 [facility] amine 50 mg 1-27 03-06 capsule by i ty of capsule 00:00: 00:00 mouth [place] 00 :00 every Medical morning. Branch lisdexamfet 2022-0 3- No [id number] 50mg Take 1 [facility] amine 50 mg 1-27 03-06 capsule by i ty of capsule 00:00: 00:00 mouth [place] 00 :00 every Medical morning. Branch methimazole 2022-0 Yes TAKE 2 [facility] enma 10 mg oral 1-18 TABLETS BY l tablet 16:26: MOUTH [place] 00 EVERY MORNING propranolol 2022-0 Yes TAKE 1 [facility] 40 mg oral 1-18 TABLET BY l tablet 16:26: MOUTH IN [place] 00 THE MORNING AND 1 TABLET IN THE EVENING. methimazole 2022-0 Yes TAKE 2 [facility] en[facility] 10 mg oral 1-18 TABLETS BY l tablet 16:26: MOUTH [place] 00 EVERY MORNING propranolol 2023-0 Yes TAKE 1 [facility] 40 mg oral 1-18 TABLET BY l tablet 16:26: MOUTH IN [place] 00 THE MORNING AND 1 TABLET IN THE EVENING. naproxen 2023-0 Yes TAKE 1 [facility] 500 mg oral 1-18 TABLET BY l tablet 16:25: MOUTH IN [place] 00 THE MORNING AND IN THE EVENING WITH MEALS methocarbam 2023-0 Yes TAKE 1 [facility] ol 500 mg 1-18 TABLET BY l oral tablet 16:25: MOUTH [facility] THE MORNING AND IN THE EVENING naproxen 2023-0 Yes TAKE 1 [facility] 500 mg oral 1-18 TABLET BY l tablet 16:25: MOUTH IN [place] 00 THE MORNING AND IN THE EVENING WITH MEALS methocarbam 2023-0 Yes TAKE 1 [facility] ol 500 mg 1-18 TABLET BY l oral tablet 16:25: MOUTH IN [facility] 00 THE MORNING AND IN THE EVENING propranoloL 2023-0 Yes [id number] 40mg Take 1 [facility] 40 mg 1-12 tablet by ity of tablet 00:00: mouth in [place] [address] the [facility] morning Branch and 1 tablet in the evening. methIMAzole 2023-0 Yes [id number] 20mg Take 2 [facility] 10 mg 1-12 tablets by ity of tablet 00:00: mouth in [place] [address] the [facility] morning. Branch propranoloL 2023-0 Yes [id number] 40mg Take 1 [facility] 40 mg 1-12 tablet by ity of tablet 00:00: mouth in [place] [address] the Medical morning Branch and 1 tablet in the evening. methIMAzole 2023-0 Yes [id number] 20mg Take 2 [facility] 10 mg 1-12 tablets by ity of tablet 00:00: mouth in [place] [address] the Medical morning. Branch propranoloL 2023-0 Yes [id number] 40mg Take 1 [facility] 40 mg 1-12 tablet by ity of tablet 00:00: mouth in [place] [address] the [facility] morning Branch and 1 tablet in the evening. methIMAzole 2023-0 Yes [id number] 20mg Take 2 [facility] 10 mg 1-12 tablets by ity of tablet 00:00: mouth in [place] [address] the Medical morning. Branch propranoloL 2023-0 Yes [id number] 40mg Take 1 [facility] 40 mg 1-12 tablet by ity of tablet 00:00: mouth in [place] the Medical morning Branch and 1 tablet in the evening. methIMAzole 2023-0 Yes [id number] 20mg Take 2 [facility] 10 mg 1-12 tablets by ity of tablet 00:00: mouth in [place] the Medical morning. Branch propranoloL 2023-0 Yes [id number] 40mg Take 1 [facility] 40 mg 1-12 tablet by ity of tablet 00:00: mouth in [place] the Medical morning Branch and 1 tablet in the evening. methIMAzole 2023-0 Yes [id number] 20mg Take 2 [facility] 10 mg 1-12 tablets by ity of tablet 00:00: mouth in [place] the Medical morning. Branch propranoloL 2023-0 Yes [id number] 40mg Take 1 [facility] 40 mg 1-12 tablet by ity of tablet 00:00: mouth in [place] the Medical morning Branch and 1 tablet in the evening. methIMAzole 2023-0 Yes [id number] 20mg Take 2 [facility] 10 mg 1-12 tablets by ity of tablet 00:00: mouth in [place] the Medical morning. Branch propranoloL 2023-0 Yes [id number] 40mg Take 1 [facility] 40 mg 1-12 tablet by ity of tablet 00:00: mouth in [place] the Medical morning Branch and 1 tablet in the evening. methIMAzole 2023-0 Yes [id number] 20mg Take 2 [facility] 10 mg 1-12 tablets by ity of tablet 00:00: mouth in [place] the Medical morning. Branch propranoloL 2023-0 Yes [id number] 40mg Take 1 [facility] 40 mg 1-12 tablet by ity of tablet 00:00: mouth in [place] the Medical morning Branch and 1 tablet in the evening. methIMAzole 2023-0 Yes [id number] 20mg Take 2 [facility] 10 mg 1-12 tablets by ity of tablet 00:00: mouth in [place] the Medical morning. Branch propranoloL 2023-0 Yes [id number] 40mg Take 1 [facility] 40 mg 1-12 tablet by ity of tablet 00:00: mouth in [place] the Medical morning Branch and 1 tablet in the evening. methIMAzole 2023-0 Yes [id number] 20mg Take 2 [facility] 10 mg 1-12 tablets by ity of tablet 00:00: mouth in [place] the Medical morning. Branch propranoloL 2023-0 Yes [id number] 40mg Take 1 [facility] 40 mg 1-12 tablet by ity of tablet 00:00: mouth in [place] 00 the Medical morning Branch and 1 tablet in the evening. methIMAzole 2023-0 Yes [id number] 20mg Take 2 [facility] 10 mg 1-12 tablets by ity of tablet 00:00: mouth in [place] the Medical morning. Branch propranoloL 2023-0 Yes [id number] 40mg Take 1 [facility] 40 mg 1-12 tablet by ity of tablet 00:00: mouth in [place] the Medical morning Branch and 1 tablet in the evening. methIMAzole 2023-0 Yes [id number] 20mg Take 2 [facility] 10 mg 1-12 tablets by ity of tablet 00:00: mouth in [place] the Medical morning. Branch propranoloL 2023-0 Yes [id number] 40mg Take 1 [facility] 40 mg 1-12 tablet by ity of tablet 00:00: mouth in [place] the Medical morning Branch and 1 tablet in the evening. methIMAzole 2023-0 Yes [id number] 20mg Take 2 [facility] 10 mg 1-12 tablets by ity of tablet 00:00: mouth in [place] the Medical morning. Branch propranoloL 2023-0 Yes [id number] 40mg Take 1 [facility] 40 mg 1-12 tablet by ity of tablet 00:00: mouth in [place] the Medical morning Branch and 1 tablet in the evening. methIMAzole 2023-0 Yes [id number] 20mg Take 2 [facility] 10 mg 1-12 tablets by ity of tablet 00:00: mouth in [place] the Medical morning. Branch propranoloL 2023-0 Yes [id number] 40mg Take 1 [facility] 40 mg 1-12 tablet by ity of tablet 00:00: mouth in [place] the Medical morning Branch and 1 tablet in the evening. methIMAzole 2023-0 Yes [id number] 20mg Take 2 [facility] 10 mg 1-12 tablets by ity of tablet 00:00: mouth in [place] the Medical morning. Branch propranoloL 2023-0 Yes [id number] 40mg Take 1 [facility] 40 mg 1-12 tablet by ity of tablet 00:00: mouth in [place] the Medical morning Branch and 1 tablet in the evening. methIMAzole 2023-0 Yes [id number] 20mg Take 2 [facility] 10 mg 1-12 tablets by ity of tablet 00:00: mouth in [place] the Medical morning. Branch propranoloL 2023-0 Yes [id number] 40mg Take 1 [facility] 40 mg 1-12 tablet by ity of tablet 00:00: mouth in [place] 00 the Medical morning Branch and 1 tablet in the evening. methIMAzole 2023-0 Yes [id number] 20mg Take 2 [facility] 10 mg 1-12 tablets by ity of tablet 00:00: mouth in [place] the Medical morning. Branch propranoloL 2023-0 Yes [id number] 40mg Take 1 [facility] 40 mg 1-12 tablet by ity of tablet 00:00: mouth in [place] the Medical morning Branch and 1 tablet in the evening. methIMAzole 2023-0 Yes [id number] 20mg Take 2 [facility] 10 mg 1-12 tablets by ity of tablet 00:00: mouth in [place] the Medical morning. Branch propranoloL 2023-0 Yes [id number] 40mg Take 1 [facility] 40 mg 1-12 tablet by ity of tablet 00:00: mouth in [place] the Medical morning Branch and 1 tablet in the evening. methIMAzole 2023-0 Yes [id number] 20mg Take 2 [facility] 10 mg 1-12 tablets by ity of tablet 00:00: mouth in [place] the Medical morning. Branch propranoloL 2023-0 Yes [id number] 40mg Take 1 [facility] 40 mg 1-12 tablet by ity of tablet 00:00: mouth in [place] the Medical morning Branch and 1 tablet in the evening. methIMAzole 2023-0 Yes [id number] 20mg Take 2 [facility] 10 mg 1-12 tablets by ity of tablet 00:00: mouth in [place] the Medical morning. Branch propranoloL 2023-0 Yes [id number] 40mg Take 1 [facility] 40 mg 1-12 tablet by ity of tablet 00:00: mouth in [place] the Medical morning Branch and 1 tablet in the evening. methIMAzole 2023-0 Yes [id number] 20mg Take 2 [facility] 10 mg 1-12 tablets by ity of tablet 00:00: mouth in [place] the Medical morning. Branch propranoloL 2023-0 Yes [id number] 40mg Take 1 [facility] 40 mg 1-12 tablet by ity of tablet 00:00: mouth in [place] [address] the Medical morning Branch and 1 tablet in the evening. methIMAzole 2023-0 Yes [id number] 20mg Take 2 [facility] 10 mg 1-12 tablets by ity of tablet 00:00: mouth in [place] 00 the Medical morning. Branch propranoloL 2023-0 Yes [id number] 40mg Take 1 [facility] 40 mg 1-12 tablet by ity of tablet 00:00: mouth in [place] the Medical morning Branch and 1 tablet in the evening. methIMAzole 2023-0 Yes [id number] 20mg Take 2 [facility] 10 mg 1-12 tablets by ity of tablet 00:00: mouth in [place] the Medical morning. Branch propranoloL 2023-0 Yes [id number] 40mg Take 1 [facility] 40 mg 1-12 tablet by ity of tablet 00:00: mouth in [place] the Medical morning Branch and 1 tablet in the evening. methIMAzole 2023-0 Yes [id number] 20mg Take 2 [facility] 10 mg 1-12 tablets by ity of tablet 00:00: mouth in [place] the morning. Branch propranoloL 2023-0 Yes [id number] 40mg Take 1 [facility] 40 mg 1-12 tablet by ity of tablet 00:00: mouth in [place] the Medical morning Branch and 1 tablet in the evening. methIMAzole 2023-0 Yes [id number] 20mg Take 2 [facility] 10 mg 1-12 tablets by ity of tablet 00:00: mouth in [place] the morning. Branch propranoloL 2023-0 Yes [id number] 40mg Take 1 [facility] 40 mg 1-12 tablet by ity of tablet 00:00: mouth in [place] the Medical morning Branch and 1 tablet in the evening. methIMAzole 2023-0 Yes [id number] 20mg Take 2 [facility] 10 mg 1-12 tablets by ity of tablet 00:00: mouth in [place] the Medical morning. Branch propranoloL 2023-0 Yes [id number] 40mg Take 1 [facility] 40 mg 1-12 tablet by ity of tablet 00:00: mouth in [place] the Medical morning Branch and 1 tablet in the evening. methIMAzole 2023-0 Yes [id number] 20mg Take 2 [facility] 10 mg 1-12 tablets by ity of tablet 00:00: mouth in [place] the Medical morning. Branch propranoloL 2023-0 Yes [id number] 40mg Take 1 [facility] 40 mg 1-12 tablet by ity of tablet 00:00: mouth in [place] [address] the Medical morning Branch and 1 tablet in the evening. methIMAzole 2023-0 Yes [id number] 20mg Take 2 [facility] 10 mg 1-12 tablets by ity of tablet 00:00: mouth in [place] the morning. Branch propranoloL 2023-0 Yes [id number] 40mg Take 1 [facility] 40 mg 1-12 tablet by ity of tablet 00:00: mouth in [place] the morning Branch and 1 tablet in the evening. methIMAzole 2023-0 Yes [id number] 20mg Take 2 [facility] 10 mg 1-12 tablets by ity of tablet 00:00: mouth in [place] the morning. Branch propranoloL 2023-0 Yes [id number] 40mg Take 1 [facility] 40 mg 1-12 tablet by ity of tablet 00:00: mouth in [place] the morning Branch and 1 tablet in the evening. methIMAzole 2023-0 Yes [id number] 20mg Take 2 [facility] 10 mg 1-12 tablets by ity of tablet 00:00: mouth in [place] [address] the morning. Branch propranoloL 2023-0 Yes [id number] 40mg Take 1 [facility] 40 mg 1-12 tablet by ity of tablet 00:00: mouth in [place] [address] the morning Branch and 1 tablet in the evening. methIMAzole 2023-0 Yes [id number] 20mg Take 2 [facility] 10 mg 1-12 tablets by ity of tablet 00:00: mouth in [place] the morning. Branch naproxen 2023-0 Yes [id number] 500mg Take 1 [facility] nivers 500 mg 1-06 tablet by ity of tablet 00:00: mouth in [place] the morning Branch and 1 tablet in the evening. Take with meals. methocarbam 2023-0 Yes [id number] 500mg Take 1 [facility] oL 500 mg 1-06 tablet by ity o f tablet 00:00: mouth in [place] the morning Branch and 1 tablet in the evening. naproxen 2023-0 Yes [id number] 500mg Take 1 [facility] nivers 500 mg 1-06 tablet by ity of tablet 00:00: mouth in [place] [address] the morning Branch and 1 tablet in the evening. Take with meals. methocarbam 2023-0 Yes [id number] 500mg Take 1 [facility] oL 500 mg 1-06 tablet by ity o f tablet 00:00: mouth in [place] [address] the Medical morning Branch and 1 tablet in the evening. naproxen 2023-0 Yes [id number] 500mg Take 1 [facility] nivers 500 mg 1-06 tablet by ity of tablet 00:00: mouth in [place] [address] the Medical morning [place] and 1 tablet in the evening. Take with meals. methocarbam 2023-0 Yes [id number] 500mg Take 1 [facility] oL 500 mg 1-06 tablet by ity o f tablet 00:00: mouth in [place] [address] the [facility] morning [place] and 1 tablet in the evening. naproxen 2023-0 Yes [id number] 500mg Take 1 U nivers 500 mg 1-06 tablet by ity of tablet 00:00: mouth in [place] [address] the [facility] morning [place] and 1 tablet in the evening. Take with meals. methocarbam 2023-0 Yes [id number] 500mg Take 1 [facility] oL 500 mg 1-06 tablet by ity o f tablet 00:00: mouth in [place] [address] the [facility] morning [place] and 1 tablet in the evening. naproxen 2023-0 Yes [id number] 500mg Take 1 U nivers 500 mg 1-06 tablet by ity of tablet 00:00: mouth in [address] morning [place] and 1 tablet in the evening. Take with meals. methocarbam 2023-0 Yes [id number] 500mg Take 1 [facility] oL 500 mg 1-06 tablet by ity o f tablet 00:00: mouth in [address] morning [place] and 1 tablet in the evening. naproxen 2023-0 Yes [id number] 500mg Take 1 [facility] 500 mg 1-06 tablet by [facility] of tablet 00:00: mouth in [address] morning [place] and 1 tablet in the evening. Take with meals. naproxen 2023-0 Yes [id number] 500mg Take 1 [facility] 500 mg 1-06 tablet by ity of tablet 00:00: mouth in [address] morning [place] and 1 tablet in the evening. Take with meals. naproxen 2023-0 Yes [id number] 500mg Take 1 [facility] 500 mg 1-06 tablet by ity of tablet 00:00: mouth in [address] morning [place] and 1 tablet in the evening. Take with meals. naproxen 2023-0 Yes [id number] 500mg Take 1 [facility] 500 mg 1-06 tablet by ity of tablet 00:00: mouth in [address] morning [place] and 1 tablet in the evening. Take with meals. naproxen 2023-0 Yes [id number] 500mg Take 1 [facility] 500 mg 1-06 tablet by [facility]y of tablet 00:00: mouth in [place] [address] the Medical morning [place] and 1 tablet in the evening. Take with meals. naproxen 2023-0 Yes [id number] 500mg Take 1 [facility] 500 mg 1-06 tablet by [facility] of tablet 00:00: mouth in [place] [address] the Medical morning [place] and 1 tablet in the evening. Take with meals. naproxen 2023-0 Yes [id number] 500mg Take 1 [facility] 500 mg 1-06 tablet by [facility] of tablet 00:00: mouth in [place] [address] the Medical morning [place] and 1 tablet in the evening. Take with meals. naproxen 2023-0 Yes [id number] 500mg Take 1 [facility] 500 mg 1-06 tablet by ity of tablet 00:00: mouth in [place] [address] the [facility] morning [place] and 1 tablet in the evening. Take with meals. naproxen 2023-0 Yes [id number] 500mg Take 1 [facility] n[facility] 500 mg 1-06 tablet by ity of tablet 00:00: mouth in [place] [address] the [facility] morning [place] and 1 tablet in the evening. Take with meals. naproxen 2023-0 Yes [id number] 500mg Take 1 [facility] 500 mg 1-06 tablet by ity of tablet 00:00: mouth in [address] morning [place] and 1 tablet in the evening. Take with meals. naproxen 2023-0 Yes [id number] 500mg Take 1 [facility] 500 mg 1-06 tablet by ity of tablet 00:00: mouth in [address] morning [place] and 1 tablet in the evening. Take with meals. naproxen 2023-0 Yes [id number] 500mg Take 1 [facility] 500 mg 1-06 tablet by [facility]y of tablet 00:00: mouth in [address] morning [place] and 1 tablet in the evening. Take with meals. naproxen 2023-0 Yes [id number] 500mg Take 1 [facility] 500 mg 1-06 tablet by [facility]y of tablet 00:00: mouth in [address] morning [place] and 1 tablet in the evening. Take with meals. naproxen 2023-0 Yes [id number] 500mg Take 1 [facility] 500 mg 1-06 tablet by [facility] of tablet 00:00: mouth in [place] [address] the Medical morning [place] and 1 tablet in the evening. Take with meals. naproxen 2023-0 Yes [id number] 500mg Take 1 [facility] 500 mg 1-06 tablet by [facility] of tablet 00:00: mouth in [place] [address] the [facility] morning [place] and 1 tablet in the evening. Take with meals. naproxen 2023-0 Yes [id number] 500mg Take 1 [facility] 500 mg 1-06 tablet by [facility] of tablet 00:00: mouth in [place] [address] the [facility] morning [place] and 1 tablet in the evening. Take with meals. naproxen 2023-0 Yes [id number] 500mg Take 1 [facility] 500 mg 1-06 tablet by ity of tablet 00:00: mouth in [place] [address] the [facility] morning [place] and 1 tablet in the evening. Take with meals. naproxen 2023-0 Yes [id number] 500mg Take 1 [facility] 500 mg 1-06 tablet by ity of tablet 00:00: mouth in [address] morning [place] and 1 tablet in the evening. Take with meals. naproxen 2023-0 Yes [id number] 500mg Take 1 [facility] 500 mg 1-06 tablet by [facility]y of tablet 00:00: mouth in [address] morning [place] and 1 tablet in the evening. Take with meals. naproxen 2023-0 Yes [id number] 500mg Take 1 [facility] 500 mg 1-06 tablet by [facility] of tablet 00:00: mouth in [address] morning [place] and 1 tablet in the evening. Take with meals. naproxen 2023-0 Yes [id number] 500mg Take 1 [facility] 500 mg 1-06 tablet by [facility] of tablet 00:00: mouth in [address] morning [place] and 1 tablet in the evening. Take with meals. naproxen 2023-0 Yes [id number] 500mg Take 1 [facility] 500 mg 1-06 tablet by [facility] of tablet 00:00: mouth in [address] morning [place] and 1 tablet in the evening. Take with meals. naproxen 2023-0 Yes [id number] 500mg Take 1 [facility] 500 mg 1-06 tablet by [facility] of tablet 00:00: mouth in [address] morning [place] and 1 tablet in the evening. Take with meals. naproxen 2023-0 Yes [id number] 500mg Take 1 [facility] 500 mg 1-06 tablet by [facility] of tablet 00:00: mouth in [place] 00 the Medical morning Branch and 1 tablet in the evening. Take with meals. naproxen 2023-0 Yes [id number] 500mg Take 1 [facility] 500 mg 1-06 tablet by [facility] of tablet 00:00: mouth in [place] 00 the Medical morning Branch and 1 tablet in the evening. Take with meals. naproxen 2023-0 Yes [id number] 500mg Take 1 [facility] 500 mg 1-06 tablet by [facility] of tablet 00:00: mouth in [place] 00 the Medical morning Branch and 1 tablet in the evening. Take with meals. naproxen 2023-0 Yes [id number] 500mg Take 1 [facility] 500 mg 1-06 tablet by [facility] of tablet 00:00: mouth in [place] 00 the Medical morning Branch and 1 tablet in the evening. Take with meals. methocarbam 2023-0 2023- No [id number] 500mg Take 1 [facility] oL 500 mg 05-08 tablet by ity of tablet 00:00: 00:00 mouth in [place] 00 :00 the Medical morning Branch and 1 tablet in the evening. methocarbam 3-0 2023- No [id number] 500mg Take 1 [facility] oL 500 mg 05-08 tablet by ity of tablet 00:00: 00:00 mouth in [place] 00 :00 the Medical morning Branch and 1 tablet in the evening. methocarbam 2023-0 2023- No [id number] 500mg Take 1 [facility] oL 500 mg 05-08 tablet by ity of tablet 00:00: 00:00 mouth in [place] 00 :00 the Medical morning Branch and 1 tablet in the evening. methocarbam 2023-0 2023- No [id number] 500mg Take 1 [facility] oL 500 mg 05-08 tablet by ity of tablet 00:00: 00:00 mouth in [place] 00 :00 the Medical morning Branch and 1 tablet in the evening. methocarbam 2023-0 2023- No [id number] 500mg Take 1 [facility] oL 500 mg 05-08 tablet by ity of tablet 00:00: 00:00 mouth in [place] 00 :00 the Medical morning Branch and 1 tablet in the evening. lisdexamfet 2021-05 Yes [id number] 50mg Take 1 [facility] amine 50 mg 2-28 capsule by it y of capsule 00:00: mouth [place] 00 every Medical morning. Branch lisdexamfet 2021-05 Yes [id number] 50mg Take 1 [facility] amine 50 mg 2-28 capsule by it y of capsule 00:00: mouth [place] 00 every Medical morning. Branch lisdexamfet 2021-05 Yes [id number] 50mg Take 1 [facility] amine 50 mg 2-28 capsule by it y of capsule 00:00: mouth [place] 00 every Medical morning. Branch lisdexamfet 2021-05 Yes [id number] 50mg Take 1 [facility] amine 50 mg 2-28 capsule by it y of capsule 00:00: mouth [place] 00 every Medical morning. Branch lisdexamfet 2021-05 Yes [id number] 50mg Take 1 [facility] amine 50 mg 2-28 capsule by it y of capsule 00:00: mouth [place] 00 every Medical morning. Branch lisdexamfet 2021-05- No [id number] 50mg Take 1 [facility] amine 50 mg 2-28 -27 capsule by i ty of capsule 00:00: 00:00 mouth [place] 00 :00 every Medical morning. Branch lisdexamfet 2021-05- No [id number] 50mg Take 1 [facility] amine 50 mg 2-28 -27 capsule by i ty of capsule 00:00: 00:00 mouth [place] 00 :00 every Medical morning. Branch lisdexamfet 2021-05- No [id number] 50mg Take 1 [facility] amine 50 mg 2-28 -27 capsule by i ty of capsule 00:00: 00:00 mouth [place] 00 :00 every Medical morning. Branch lisdexamfet 2021-05- No [id number] 50mg Take 1 [facility] amine 50 mg 2-28 -27 capsule by i ty of capsule 00:00: 00:00 mouth [place] 00 :00 every Medical morning. Branch lisdexamfet 2021-05- No [id number] 50mg Take 1 [facility] amine 50 mg 2-28 -27 capsule by i ty of capsule 00:00: 00:00 mouth [place] 00 :00 every Medical morning. Branch dextroamphe 2021-05 Yes [id number] 15mg Take 1 [facility] tamine-amph 2-23 tablet by ity of etamine 15 00:00: mouth in [place] mg tablet 00 the Medical morning Branch and 1 tablet at noon and 1 tablet in the evening. dextroamphe 2021-05 Yes [id number] 15mg Take 1 [facility] tamine-amph 2-23 tablet by ity of etamine 15 00:00: mouth in [place] mg tablet 00 the Medical morning Branch and 1 tablet at noon and 1 tablet in the evening. dextroamphe 2021-05- No [id number] 15mg Take 1 [facility] tamine-amph 2-23 12-28 tablet by it y of etamine 15 00:00: 00:00 mouth in [place] mg tablet 00 :00 the Medical morning Branch and 1 tablet at noon and 1 tablet in the evening. dextroamphe 2021-05- No [id number] 15mg Take 1 [facility] tamine-amph 2-23 12-28 tablet by it y of etamine 15 00:00: 00:00 mouth in [place] mg tablet 00 :00 the Medical morning Branch and 1 tablet at noon and 1 tablet in the evening. dextroamphe 2021-05- No [id number] 15mg Take 1 [facility] tamine-amph 2-23 12-28 tablet by it y of etamine 15 00:00: 00:00 mouth in [place] mg tablet 00 :00 the Medical morning Branch and 1 tablet at noon and 1 tablet in the evening. dextroamphe 2021-05 Yes [id number] 15mg Take 1 [facility] tamine-amph 2-22 tablet by ity of etamine 15 00:00: mouth in [place] mg tablet 00 the Medical morning Branch and 1 tablet at noon and 1 tablet in the evening. dextroamphe 2021-05 Yes [id number] 15mg Take 1 [facility] tamine-amph 2-22 tablet by ity of etamine 15 00:00: mouth in [place] mg tablet 00 the Medical morning Branch and 1 tablet at noon and 1 tablet in the evening. dextroamphe 2021-05 Yes [id number] 15mg Take 1 [facility] tamine-amph 2-22 tablet by ity of etamine 15 00:00: mouth in [place] mg tablet 00 the Medical morning Branch and 1 tablet at noon and 1 tablet in the evening. dextroamphe 2021-05 Yes [id number] 15mg Take 1 [facility] tamine-amph 2-22 tablet by ity of etamine 15 00:00: mouth in [place] mg tablet 00 the Medical morning Branch and 1 tablet at noon and 1 tablet in the evening. dextroamphe 2021-05 Yes [id number] 15mg Take 1 [facility] tamine-amph 2-22 tablet by ity of etamine 15 00:00: mouth in [place] mg tablet 00 the Medical morning Branch and 1 tablet at noon and 1 tablet in the evening. dextroamphe 2021-05- No [id number] 15mg Take 1 [facility] tamine-amph 2-22 12-23 tablet by it y of etamine 15 00:00: 00:00 mouth in [place] mg tablet 00 :00 the Medical morning Branch and 1 tablet at noon and 1 tablet in the evening. dextroamphe 2021-05- No [id number] 15mg Take 1 [facility] tamine-amph 2-22 12-23 tablet by it y of etamine 15 00:00: 00:00 mouth in [place] mg tablet 00 :00 the Medical morning Branch and 1 tablet at noon and 1 tablet in the evening. dextroamphe 2021-05- No [id number] 15mg Take 1 [facility] tamine-amph 2-22 12-23 tablet by it y of etamine 15 00:00: 00:00 mouth in [place] mg tablet 00 :00 the Medical morning Branch and 1 tablet at noon and 1 tablet in the evening. dextroamphe 2021-05- No [id number] 15mg Take 1 [facility] tamine-amph 2-22 12-23 tablet by it y of etamine 15 00:00: 00:00 mouth in [place] mg tablet 00 :00 the Medical morning Branch and 1 tablet at noon and 1 tablet in the evening. dextroamphe 2021-05- No [id number] 15mg Take 1 [facility] tamine-amph 2-22 12-23 tablet by it y of etamine 15 00:00: 00:00 mouth in [place] mg tablet 00 :00 the Medical morning Branch and 1 tablet at noon and 1 tablet in the evening. dextroamphe 2021-05- No [id number] 15mg Take 1 [facility] tamine-amph 2-22 12-22 tablet by it y of etamine 15 00:00: 00:00 mouth in [place] mg tablet 00 :00 the Medical morning Branch and 1 tablet at noon and 1 tablet in the evening. dextroamphe 2021-05- No [id number] 15mg Take 1 [facility] tamine-amph 2-22 12-22 tablet by it y of etamine 15 00:00: 00:00 mouth in [place] mg tablet 00 :00 the Medical morning Branch and 1 tablet at noon and 1 tablet in the evening. dextroamphe 2021-05- No [id number] 15mg Take 1 [facility] tamine-amph 2-22 12-22 tablet by it y of etamine 15 00:00: 00:00 mouth in [place] mg tablet 00 :00 the Medical morning Branch and 1 tablet at noon and 1 tablet in the evening. dextroamphe 2021-05- No [id number] 15mg Take 1 [facility] tamine-amph 2-22 12-22 tablet by it y of etamine 15 00:00: 00:00 mouth in [place] mg tablet 00 :00 the Medical morning Branch and 1 tablet at noon and 1 tablet in the evening. dextroamphe 2021-05- No [id number] 15mg Take 1 [facility] tamine-amph 2-22 12-22 tablet by it y of etamine 15 00:00: 00:00 mouth in [place] mg tablet 00 :00 the Medical morning Branch and 1 tablet at noon and 1 tablet in the evening. dextroamphe 2021-05- No [id number] 15mg Take 1 [facility] tamine-amph 2-22 12-22 tablet by it y of etamine 15 00:00: 00:00 mouth in [place] mg tablet 00 :00 the Medical morning Branch and 1 tablet at noon and 1 tablet in the evening. dextroamphe 2021-05- No [id number] 15mg Take 1 [facility] tamine-amph 2-22 12-22 tablet by it y of etamine 15 00:00: 00:00 mouth in [place] mg tablet 00 :00 the Medical morning Branch and 1 tablet at noon and 1 tablet in the evening. dextroamphe 2021-05- No [id number] 15mg Take 1 [facility] tamine-amph 2-22 12-22 tablet by it y of etamine 15 00:00: 00:00 mouth in [place] mg tablet 00 :00 the Medical morning Branch and 1 tablet at noon and 1 tablet in the evening. dextroamphe 2021-05- No [id number] 15mg Take 1 [facility] tamine-amph 2-22 12-22 tablet by it y of etamine 15 00:00: 00:00 mouth in [place] mg tablet 00 :00 the Medical morning Branch and 1 tablet at noon and 1 tablet in the evening. dextroamphe 2021-05 Yes [id number] 15mg Take 1 [facility] tamine-amph 2-19 tablet by ity of etamine 15 00:00: mouth in [place] as mg tablet 00 the Medical morning Branch and 1 tablet at noon and 1 tablet in the evening. dextroamphe 2021-05- No [id number] 15mg Take 1 [facility] tamine-amph 2-19 12-22 tablet by it y of etamine 15 00:00: 00:00 mouth in [place] mg tablet 00 :00 the Medical morning Branch and 1 tablet at noon and 1 tablet in the evening. dextroamphe 2021-05- No [id number] 15mg Take 1 [facility] tamine-amph 2-19 12-22 tablet by it y of etamine 15 00:00: 00:00 mouth in [place] mg tablet 00 :00 the Medical morning Branch and 1 tablet at noon and 1 tablet in the evening. dextroamphe 2021-05- No [id number] 15mg Take 1 [facility] tamine-amph 2-19 12-22 tablet by it y of etamine 15 00:00: 00:00 mouth in [place] mg tablet 00 :00 the Medical morning Branch and 1 tablet at noon and 1 tablet in the evening. dextroamphe 2021-05- No [id number] 15mg Take 1 [facility] tamine-amph 2-19 12-22 tablet by it y of etamine 15 00:00: 00:00 mouth in [place] mg tablet 00 :00 the Medical morning Branch and 1 tablet at noon and 1 tablet in the evening. dextroamphe 2021-05- No [id number] 15mg Take 1 [facility] tamine-amph 2-19 12-22 tablet by it y of etamine 15 00:00: 00:00 mouth in [place] mg tablet 00 :00 the Medical morning Branch and 1 tablet at noon and 1 tablet in the evening. dextroamphe 2021-05- No [id number] 15mg Take 1 [facility] tamine-amph 2-19 12-22 tablet by it y of etamine 15 00:00: 00:00 mouth in [place] mg tablet 00 :00 the Medical morning Branch and 1 tablet at noon and 1 tablet in the evening. dextroamphe 2021-05- No [id number] 15mg Take 1 [facility] tamine-amph 2-19 12-22 tablet by it y of etamine 15 00:00: 00:00 mouth in [place] mg tablet 00 :00 the Medical morning Branch and 1 tablet at noon and 1 tablet in the evening. dextroamphe 2021-05- No [id number] 15mg Take 1 [facility] tamine-amph 2-19 12-22 tablet by it y of etamine 15 00:00: 00:00 mouth in [place] mg tablet 00 :00 the Medical morning Branch and 1 tablet at noon and 1 tablet in the evening. dextroamphe 2021-05- No [id number] 15mg Take 1 [facility] tamine-amph 2-19 12-22 tablet by it y of etamine 15 00:00: 00:00 mouth in [place] mg tablet 00 :00 the Medical morning Branch and 1 tablet at noon and 1 tablet in the evening. dextroamphe 2021-05- No [id number] 15mg Take 1 [facility] tamine-amph 2-19 12-22 tablet by it y of etamine 15 00:00: 00:00 mouth in [place] mg tablet 00 :00 the Medical morning Branch and 1 tablet at noon and 1 tablet in the evening. desvenlafax 2021-05 Yes [id number] 100mg Take 1 [facility] ine 2-05 tablet by ity of succinate 00:00: mouth in [place] 100 mg 24 00 the Medical hr tablet morning. Branch clonazePAM 2021-05 Yes [id number] .5mg Take 1 U nivers 0.5 mg 2-05 tablet by ity of tablet 00:00: mouth once 00 daily as Medical needed for Branch Other (Anxiety). desvenlafax 2021-05 Yes [id number] 100mg Take 1 [facility] ine 2-05 tablet by ity of succinate 00:00: mouth in [place] 100 mg 24 00 the Medical hr tablet morning. Branch clonazePAM 2021-05 Yes [id number] .5mg Take 1 U nivers 0.5 mg 2-05 tablet by ity of tablet 00:00: mouth once [place] 00 daily as Medical needed for Branch Other (Anxiety). desvenlafax 2021-05 Yes [id number] 100mg Take 1 [facility] ine 2-05 tablet by ity of succinate 00:00: mouth in [place] 100 mg 24 00 the Medical hr tablet morning. Branch clonazePAM 2021-05 Yes [id number] .5mg Take 1 U nivers 0.5 mg 2-05 tablet by ity of tablet 00:00: mouth once [place] 00 daily as Medical needed for Branch Other (Anxiety). desvenlafax 2021-05 Yes [id number] 100mg Take 1 [facility] ine 2-05 tablet by ity of succinate 00:00: mouth in [place] 100 mg 24 00 the Medical hr tablet morning. Branch clonazePAM 2021-05 Yes [id number] .5mg Take 1 [facility] nivers 0.5 mg 2-05 tablet by ity of tablet 00:00: mouth once [place] 00 daily as Medical needed for Branch Other (Anxiety). desvenlafax 2021-05 Yes 100mg Take 1 [facility] ine 2-05 tablet by ity of succinate 00:00: mouth in [place] 100 mg 24 00 the Medical hr tablet morning. Branch clonazePAM 2021-05 Yes [id number] .5mg Take 1 [facility] nivers 0.5 mg 2-05 tablet by ity of tablet 00:00: mouth once [place] 00 daily as Medical needed for Branch Other (Anxiety). desvenlafax 2021-05 Yes [id number] 100mg Take 1 [facility] ine 2-05 tablet by ity of succinate 00:00: mouth in [place] 100 mg 24 00 the Medical hr tablet morning. Branch clonazePAM 2021-05 Yes [id number] .5mg Take 1 [facility] nivers 0.5 mg 2-05 tablet by ity of tablet 00:00: mouth once [place] 00 daily as Medical needed for Branch Other (Anxiety). desvenlafax 2021-05 Yes [id number] 100mg Take 1 [facility] ine 2-05 tablet by ity of succinate 00:00: mouth in [place] 100 mg 24 00 the Medical hr tablet morning. Branch clonazePAM 2021-05 Yes [id number] .5mg Take 1 [facility] nivers 0.5 mg 2-05 tablet by ity of tablet 00:00: mouth once [place] 00 daily as Medical needed for Branch Other (Anxiety). desvenlafax 2021-05 Yes [id number] 100mg Take 1 [facility] ine 2-05 tablet by ity of succinate 00:00: mouth in [place] 100 mg 24 00 the Medical hr tablet morning. Branch clonazePAM 2021-05 Yes [id number] .5mg Take 1 [facility] nivers 0.5 mg 2-05 tablet by ity of tablet 00:00: mouth once [place] 00 daily as Medical needed for Branch Other (Anxiety). desvenlafax 2021-05 Yes [id number] 100mg Take 1 [facility] ine 2-05 tablet by ity of succinate 00:00: mouth in [place] 100 mg 24 00 the Medical hr tablet morning. Branch clonazePAM 2021-05 Yes [id number] .5mg Take 1 U nivers 0.5 mg 2-05 tablet by ity of tablet 00:00: mouth once [place] 00 daily as Medical needed for Branch Other (Anxiety). desvenlafax 2021-05 Yes [id number] 100mg Take 1 [facility] ine 2-05 tablet by ity of succinate 00:00: mouth in [place] 100 mg 24 00 the Medical hr tablet morning. Branch clonazePAM 2021-05 Yes [id number] .5mg Take 1 [facility] nivers 0.5 mg 2-05 tablet by ity of tablet 00:00: mouth once [place] 00 daily as Medical needed for Branch Other (Anxiety). desvenlafax 2021-05 Yes [id number] 100mg Take 1 [facility] ine 2-05 tablet by ity of succinate 00:00: mouth in [place] 100 mg 24 00 the Medical hr tablet morning. Branch clonazePAM 2021-05 Yes [id number] .5mg Take 1 [facility] nivers 0.5 mg 2-05 tablet by ity of tablet 00:00: mouth once [place] 00 daily as Medical needed for Branch Other (Anxiety). desvenlafax 2021-05 Yes [id number] 100mg Take 1 [facility] ine 2-05 tablet by ity of succinate 00:00: mouth in [place] 100 mg 24 00 the Medical hr tablet morning. Branch clonazePAM 2021-05 Yes [id number] .5mg Take 1 [facility] nivers 0.5 mg 2-05 tablet by ity of tablet 00:00: mouth once [place] 00 daily as Medical needed for Branch Other (Anxiety). desvenlafax 2021-05 Yes [id number] 100mg Take 1 [facility] ine 2-05 tablet by ity of succinate 00:00: mouth in [place] 100 mg 24 00 the Medical hr tablet morning. Branch clonazePAM 2021-05 Yes [id number] .5mg Take 1 [facility] nivers 0.5 mg 2-05 tablet by ity of tablet 00:00: mouth once [place] 00 daily as Medical needed for Branch Other (Anxiety). desvenlafax 2021-05 Yes [id number] 100mg Take 1 [facility] ine 2-05 tablet by ity of succinate 00:00: mouth in [place] 100 mg 24 00 the Medical hr tablet morning. Branch clonazePAM 2021-05 Yes [id number] .5mg Take 1 [facility] nivers 0.5 mg 2-05 tablet by ity of tablet 00:00: mouth once [place] 00 daily as Medical needed for Branch Other (Anxiety). desvenlafax 2021-05 Yes [id number] 100mg Take 1 [facility] ine 2-05 tablet by ity of succinate 00:00: mouth in [place] 100 mg 24 00 the Medical hr tablet morning. Branch clonazePAM 2021-05 Yes [id number] .5mg Take 1 [facility] nivers 0.5 mg 2-05 tablet by ity of tablet 00:00: mouth once [place] 00 daily as Medical needed for Branch Other (Anxiety). desvenlafax 2021-05 Yes [id number] 100mg Take 1 [facility] ine 2-05 tablet by ity of succinate 00:00: mouth in [place] 100 mg 24 00 the Medical hr tablet morning. Branch clonazePAM 2021-05 Yes [id number] .5mg Take 1 [facility] nivers 0.5 mg 2-05 tablet by ity of tablet 00:00: mouth once [place] 00 daily as Medical needed for Branch Other (Anxiety). desvenlafax 2021-05 Yes [id number] 100mg Take 1 [facility] ine 2-05 tablet by ity of succinate 00:00: mouth in [place] 100 mg 24 00 the Medical hr tablet morning. Branch clonazePAM 2021-05 Yes [id number] .5mg Take 1 [facility] nivers 0.5 mg 2-05 tablet by ity of tablet 00:00: mouth once [place] 00 daily as Medical needed for Branch Other (Anxiety). desvenlafax 2021-05 Yes [id number] 100mg Take 1 [facility] ine 2-05 tablet by ity of succinate 00:00: mouth in [place] 100 mg 24 00 the Medical hr tablet morning. Branch clonazePAM 2021-05 Yes [id number] .5mg Take 1 [facility] nivers 0.5 mg 2-05 tablet by ity of tablet 00:00: mouth once [place] 00 daily as Medical needed for Branch Other (Anxiety). desvenlafax 2021-05 Yes [id number] 100mg Take 1 [facility] ine 2-05 tablet by ity of succinate 00:00: mouth in [place] 100 mg 24 00 the Medical hr tablet morning. Branch clonazePAM 2021-05 Yes [id number] .5mg Take 1 [facility] nivers 0.5 mg 2-05 tablet by ity of tablet 00:00: mouth once [place] 00 daily as Medical needed for Branch Other (Anxiety). desvenlafax 2021-05 Yes [id number] 100mg Take 1 [facility] ine 2-05 tablet by ity of succinate 00:00: mouth in [place] 100 mg 24 00 the Medical hr tablet morning. Branch clonazePAM 2021-05 Yes [id number] .5mg Take 1 [facility] nivers 0.5 mg 2-05 tablet by ity of tablet 00:00: mouth once [place] 00 daily as Medical needed for Branch Other (Anxiety). desvenlafax 2021-05 Yes [id number] 100mg Take 1 [facility] ine 2-05 tablet by ity of succinate 00:00: mouth in [place] 100 mg 24 00 the Medical hr tablet morning. Branch clonazePAM 2021-05 Yes [id number] .5mg Take 1 [facility] nivers 0.5 mg 2-05 tablet by ity of tablet 00:00: mouth once [place] 00 daily as Medical needed for Branch Other (Anxiety). desvenlafax 2021-05 Yes [id number] 100mg Take 1 [facility] ine 2-05 tablet by ity of succinate 00:00: mouth in [place] 100 mg 24 00 the Medical hr tablet morning. Branch clonazePAM 2021-05 Yes [id number] .5mg Take 1 [facility] nivers 0.5 mg 2-05 tablet by ity of tablet 00:00: mouth once [place] 00 daily as Medical needed for Branch Other (Anxiety). desvenlafax 2021-05 Yes [id number] 100mg Take 1 [facility] ine 2-05 tablet by ity of succinate 00:00: mouth in [place] 100 mg 24 00 the Medical hr tablet morning. Branch clonazePAM 2021-05 Yes [id number] .5mg Take 1 [facility] nivers 0.5 mg 2-05 tablet by ity of tablet 00:00: mouth once [place] 00 daily as Medical needed for Branch Other (Anxiety). desvenlafax 2021-05- No 100mg Take 1 [facility] ine 2-05 02-22 tablet by ity of succinate 00:00: 00:00 mouth in [place] 100 mg 24 00 :00 the Medical hr tablet morning. Branch clonazePAM 2021-05- No [id number] .5mg Take 1 [facility] 0.5 mg 2-05 02-22 tablet by ity of tablet 00:00: 00:00 mouth once [place] 00 :00 daily as Medical needed for Branch Other (Anxiety). desvenlafax 2021-05- No [id number] 100mg Take 1 [facility] ine 2-05 02-22 tablet by ity of succinate 00:00: 00:00 mouth in [place] 100 mg 24 00 :00 the Medical hr tablet morning. Branch clonazePAM 2021-05- No [id number] .5mg Take 1 [facility] 0.5 mg 2-05 02-22 tablet by ity of tablet 00:00: 00:[place] :[place] daily as Medical needed for Branch Other (Anxiety). desvenlafax 2021-05- No [id number] 100mg Take 1 [facility] 2-05 02-22 tablet by [facility] of succinate 00:00: 00:00 mouth in [place] 100 mg 24 00 :00 the Medical hr tablet morning. Branch clonazePAM 2021-05- No [id number] .5mg Take 1 [facility] 0.5 mg 2-05 02-22 tablet by [facility] tablet 00:00: 00:[place] mouth [place] 00 :[place] daily as Medical needed for Branch Other (Anxiety). desvenlafax 2021-05- No [id number] 100mg Take 1 [facility] in[facility] 06-07 tablet by [facility] of succinate 00:00: 00:00 mouth in [place] 100 mg 24 00 :00 the Medical hr tablet morning. Branch clonazePAM 2021-05- No [id number] .5mg Take 1 [facility] 0.5 mg 06-07 tablet by [facility] tablet 00:00: 00:[place] mouth [place] 00 :00 daily as Medical needed for Branch Other (Anxiety). dextroamphe 2021-05 Yes [id number] 15mg Take 1 [facility] tamine-amph 1-21 tablet by it[facility] of etamine 15 00:00: mouth in [place] mg tablet 00 the Medical morning Branch and 1 tablet at noon and 1 tablet in the evening. dextroamphe 2021-05 Yes [id number] 15mg Take 1 [facility] tamine-amph 1-21 tablet by it[facility] of etamine 15 00:00: mouth in [place] mg tablet 00 the Medical morning Branch and 1 tablet at noon and 1 tablet in the evening. dextroamphe 2021-05 Yes [id number] 15mg Take 1 [facility] tamine-amph 1-21 tablet by [facility] of etamine 15 00:00: mouth in [place] mg tablet 00 the Medical morning Branch and 1 tablet at noon and 1 tablet in the evening. dextroamphe 2021-05 Yes [id number] 15mg Take 1 [facility] tamine-amph 1-21 tablet by [facility] of etamine 15 00:00: mouth in [place] mg tablet 00 the Medical morning Branch and 1 tablet at noon and 1 tablet in the evening. dextroamphe 2021-05- No [id number] 15mg Take 1 [facility] tamine-amph 1-21 12-17 tablet by it y of etamine 15 00:00: 00:00 mouth in [place] mg tablet 00 :00 the Medical morning Branch and 1 tablet at noon and 1 tablet in the evening. dextroamphe 2021-05- No [id number] 15mg Take 1 [facility] tamine-amph 1-21 12-17 tablet by it y of etamine 15 00:00: 00:00 mouth in [place] mg tablet 00 :00 the Medical morning Branch and 1 tablet at noon and 1 tablet in the evening. dextroamphe 2021-05- No [id number] 15mg Take 1 [facility] tamine-amph 1-21 12-17 tablet by it y of etamine 15 00:00: 00:00 mouth in [place] mg tablet 00 :00 the Medical morning Branch and 1 tablet at noon and 1 tablet in the evening. dextroamphe 2021-05- No [id number] 15mg Take 1 [facility] tamine-amph 1-21 12-17 tablet by it y of etamine 15 00:00: 00:00 mouth in [place] mg tablet 00 :00 the Medical morning Branch and 1 tablet at noon and 1 tablet in the evening. dextroamphe 2021-05- No [id number] 15mg Take 1 [facility] tamine-amph 1-21 12-17 tablet by it y of etamine 15 00:00: 00:00 mouth in [place] mg tablet 00 :00 the Medical morning Branch and 1 tablet at noon and 1 tablet in the evening. dextroamphe 2021-05- No [id number] 15mg Take 1 [facility] tamine-amph 1-21 12-17 tablet by it y of etamine 15 00:00: 00:00 mouth in [place] mg tablet 00 :00 the Medical morning Branch and 1 tablet at noon and 1 tablet in the evening. dextroamphe 2021-05- No [id number] 15mg Take 1 [facility] tamine-amph 1-21 12-17 tablet by it y of etamine 15 00:00: 00:00 mouth in [place] mg tablet 00 :00 the Medical morning Branch and 1 tablet at noon and 1 tablet in the evening. dextroamphe 2021-05- No [id number] 15mg Take 1 [facility] tamine-amph 1-21 12-17 tablet by it y of etamine 15 00:00: 00:00 mouth in [place] mg tablet 00 :00 the Medical morning Branch and 1 tablet at noon and 1 tablet in the evening. dextroamphe 2021-05- No [id number] 15mg Take 1 [facility] tamine-amph 1-21 12-17 tablet by it y of etamine 15 00:00: 00:00 mouth in [place] mg tablet 00 :00 the Medical morning Branch and 1 tablet at noon and 1 tablet in the evening. dextroamphe 2021-05- No [id number] 15mg Take 1 [facility] tamine-amph 1-21 12-17 tablet by it y of etamine 15 00:00: 00:00 mouth in [place] mg tablet 00 :00 the Medical morning Branch and 1 tablet at noon and 1 tablet in the evening. dextroamphe 2021-05 Yes [id number] 15mg Take 1 [facility] tamine-amph 1-16 tablet by [facility] of etamine 15 00:00: mouth in [place] mg tablet 00 the Medical morning Branch and 1 tablet at noon and 1 tablet in the evening. dextroamphe 2021-05 Yes [id number] 15mg Take 1 [facility] tamine-amph 1-16 tablet by [facility] of etamine 15 00:00: mouth in [place] mg tablet 00 the Medical morning Branch and 1 tablet at noon and 1 tablet in the evening. dextroamphe 2021-05- No [id number] 15mg Take 1 [facility] tamine-amph 1-16 11-21 tablet by it y of etamine 15 00:00: 00:00 mouth in [place] mg tablet 00 :00 the Medical morning Branch and 1 tablet at noon and 1 tablet in the evening. dextroamphe 2021-05- No [id number] 15mg Take 1 [facility] tamine-amph 1-16 11-21 tablet by it y of etamine 15 00:00: 00:00 mouth in [place] mg tablet 00 :00 the Medical morning Branch and 1 tablet at noon and 1 tablet in the evening. dextroamphe 2021-05- No [id number] 15mg Take 1 [facility] tamine-amph 1-16 11-21 tablet by it y of etamine 15 00:00: 00:00 mouth in [place] mg tablet 00 :00 the Medical morning Branch and 1 tablet at noon and 1 tablet in the evening. propranoloL 2021-05 Yes [id number] 40mg Take 1 [facility] 40 mg 1-11 tablet by [facility] of tablet 00:00: mouth in [place] 00 the Medical morning Branch and 1 tablet in the evening. methIMAzole 2021-05 Yes [id number] 20mg Take 2 [facility] 10 mg 1-11 tablets by [facility] of tablet 00:00: mouth in [place] the Medical morning. Branch propranoloL 2021-05 Yes [id number] 40mg Take 1 [facility] 40 mg 1-11 tablet by [facility] of tablet 00:00: mouth in [place] the Medical morning Branch and 1 tablet in the evening. methIMAzole 2021-05 Yes [id number] 20mg Take 2 [facility] 10 mg 1-11 tablets by [facility] of tablet 00:00: mouth in [place] the Medical morning. Branch propranoloL 2021-05 Yes [id number] 40mg Take 1 [facility] 40 mg 1-11 tablet by [facility] of tablet 00:00: mouth in [place] the Medical morning Branch and 1 tablet in the evening. methIMAzole 2021-05 Yes [id number] 20mg Take 2 [facility] 10 mg 1-11 tablets by [facility] of tablet 00:00: mouth in [place] the Medical morning. Branch propranoloL 2021-05 Yes [id number] 40mg Take 1 [facility] 40 mg 1-11 tablet by [facility] of tablet 00:00: mouth in [place] the Medical morning Branch and 1 tablet in the evening. methIMAzole 2021-05 Yes [id number] 20mg Take 2 [facility] 10 mg 1-11 tablets by [facility] of tablet 00:00: mouth in [place] the Medical morning. Branch propranoloL 2021-05 Yes [id number] 40mg Take 1 [facility] 40 mg 1-11 tablet by [facility] of tablet 00:00: mouth in [place] the Medical morning Branch and 1 tablet in the evening. methIMAzole 2021-05 Yes [id number] 20mg Take 2 [facility] 10 mg 1-11 tablets by [facility] of tablet 00:00: mouth in [place] the Medical morning. Branch propranoloL 2021-05 Yes [id number] 40mg Take 1 [facility] 40 mg 1-11 tablet by [facility] of tablet 00:00: mouth in [place] the Medical morning Branch and 1 tablet in the evening. methIMAzole 2021-05 Yes [id number] 20mg Take 2 [facility] 10 mg 1-11 tablets by [facility] of tablet 00:00: mouth in [place] the Medical morning. Branch propranoloL 2021-05 Yes [id number] 40mg Take 1 [facility] 40 mg 1-11 tablet by [facility] of tablet 00:00: mouth in [place] the Medical morning Branch and 1 tablet in the evening. methIMAzole 2021-05 Yes [id number] 20mg Take 2 [facility] 10 mg 1-11 tablets by [facility] of tablet 00:00: mouth in [place] the Medical morning. Branch propranoloL 2021-05 Yes [id number] 40mg Take 1 [facility] 40 mg 1-11 tablet by [facility] of tablet 00:00: mouth in [place] the Medical morning Branch and 1 tablet in the evening. methIMAzole 2021-05 Yes [id number] 20mg Take 2 [facility] 10 mg 1-11 tablets by [facility] of tablet 00:00: mouth in [place] the Medical morning. Branch propranoloL 2021-05 Yes [id number] 40mg Take 1 [facility] 40 mg 1-11 tablet by [facility] of tablet 00:00: mouth in [place] the Medical morning Branch and 1 tablet in the evening. methIMAzole 2021-05 Yes [id number] 20mg Take 2 [facility] 10 mg 1-11 tablets by [facility] of tablet 00:00: mouth in [place] the Medical morning. Branch propranoloL 2021-05 Yes [id number] 40mg Take 1 [facility] 40 mg 1-11 tablet by [facility] of tablet 00:00: mouth in [place] the Medical morning Branch and 1 tablet in the evening. methIMAzole 2021-05 Yes [id number] 20mg Take 2 [facility] 10 mg 1-11 tablets by [facility] of tablet 00:00: mouth in [place] the Medical morning. Branch propranoloL 2021-05 Yes [id number] 40mg Take 1 [facility] 40 mg 1-11 tablet by [facility] of tablet 00:00: mouth in [place] the Medical morning Branch and 1 tablet in the evening. methIMAzole 2021-05 Yes [id number] 20mg Take 2 [facility] 10 mg 1-11 tablets by [facility] of tablet 00:00: mouth in [place] the Medical morning. Branch propranoloL 2021-05 Yes [id number] 40mg Take 1 [facility] 40 mg 1-11 tablet by [facility] of tablet 00:00: mouth in [place] the Medical morning Branch and 1 tablet in the evening. methIMAzole 2021-05 Yes [id number] 20mg Take 2 [facility] 10 mg 1-11 tablets by [facility] of tablet 00:00: mouth in [place] the Medical morning. Branch propranoloL 2021-05 Yes [id number] 40mg Take 1 [facility] 40 mg 1-11 tablet by [facility] of tablet 00:00: mouth in [place] the Medical morning Branch and 1 tablet in the evening. methIMAzole 2021-05 Yes [id number] 20mg Take 2 [facility] 10 mg 1-11 tablets by [facility] of tablet 00:00: mouth in [place] 00 the Medical morning. Branch propranoloL 2021-05 Yes [id number] 40mg Take 1 [facility] 40 mg 1-11 tablet by [facility] of tablet 00:00: mouth in [place] 00 the Medical morning Branch and 1 tablet in the evening. methIMAzole 2021-05 Yes [id number] 20mg Take 2 [facility] 10 mg 1-11 tablets by [facility] of tablet 00:00: mouth in [place] 00 the Medical morning. Branch propranoloL 2021-05 Yes [id number] 40mg Take 1 [facility] 40 mg 1-11 tablet by [facility] of tablet 00:00: mouth in [place] 00 the Medical morning Branch and 1 tablet in the evening. methIMAzole 2021-05 Yes [id number] 20mg Take 2 [facility] 10 mg 1-11 tablets by [facility] of tablet 00:00: mouth in [place] 00 the Medical morning. Branch propranoloL 2021-05 Yes [id number] 40mg Take 1 [facility] 40 mg 1-11 tablet by [facility] of tablet 00:00: mouth in [place] 00 the Medical morning Branch and 1 tablet in the evening. methIMAzole 2021-05 Yes [id number] 20mg Take 2 [facility] 10 mg 1-11 tablets by [facility] of tablet 00:00: mouth in [place] 00 the Medical morning. Branch propranoloL 2021-05- No [id number] 40mg Take 1 [facility] 40 mg 1-11 01-11 tablet by [facility] of tablet 00:00: 00:00 mouth in [place] 00 :00 the Medical morning Branch and 1 tablet in the evening. methIMAzole 2021-05- No [id number] 20mg Take 2 [facility] 10 mg 1-11 01-11 tablets by [facility] of tablet 00:00: 00:00 mouth in [place] 00 :00 the Medical morning. Branch propranoloL 2021-05- No [id number] 40mg Take 1 [facility] 40 mg 1-11 01-11 tablet by [facility] of tablet 00:00: 00:00 mouth in [place] 00 :00 the Medical morning Branch and 1 tablet in the evening. methIMAzole 2021-05- No [id number] 20mg Take 2 [facility] 10 mg 1-11 01-11 tablets by [facility] of tablet 00:00: 00:00 mouth in [place] 00 :00 the Medical morning. Branch propranoloL 2021-05- No [id number] 40mg Take 1 [facility] 40 mg 05-13 tablet by [facility] of tablet 00:00: 00:00 mouth in [place] 00 :00 the Medical morning Branch and 1 tablet in the evening. methIMAzole 2021-05- No [id number] 20mg Take 2 [facility] 10 mg 05-13 tablets by [facility] of tablet 00:00: 00:00 mouth in [place] 00 :00 the Medical morning. Branch clonazePAM 2021-05 Yes [id number] .5mg Take 1 [facility] 0.5 mg 1-03 tablet by [facility] of tablet 00:00: mouth once [place] 00 daily as Medical needed for Branch Other (Anxiety). clonazePAM 2021-05 Yes [id number] .5mg Take 1 [facility] 0.5 mg 1-03 tablet by [facility] of tablet 00:00: mouth once [place] 00 daily as Medical needed for Branch Other (Anxiety). clonazePAM 2021-05 Yes [id number] .5mg Take 1 [facility] 0.5 mg 1-03 tablet by [facility] of tablet 00:00: mouth once [place] 00 daily as Medical needed for Branch Other (Anxiety). clonazePAM 2021-05 Yes [id number] .5mg Take 1 [facility] 0.5 mg 1-03 tablet by [facility] of tablet 00:00: mouth once [place] 00 daily as Medical needed for Branch Other (Anxiety). clonazePAM 2021-05 Yes [id number] .5mg Take 1 [facility] n[facility] 0.5 mg 1-03 tablet by [facility] of tablet 00:00: mouth once [place] 00 daily as Medical needed for Branch Other (Anxiety). clonazePAM 2021-05- No [id number] .5mg Take 1 [facility] 0.5 mg 1-03 12-03 tablet by [facility] tablet 00:00: 00:[place] mouth [place] 00 :00 daily as Medical needed for Branch Other (Anxiety). clonazePAM 2021-05- No [id number] .5mg Take 1 [facility] 0.5 mg 1-03 12-03 tablet by [facility] tablet 00:00: 00:00 mouth [place] 00 :00 daily as Medical needed for Branch Other (Anxiety). clonazePAM 2021-05- No [id number] .5mg Take 1 [facility] 0.5 mg 05-05 tablet by [facility] tablet 00:00: 00:00 mouth [place] 00 :00 daily as Medical needed for Branch Other (Anxiety). clonazePAM 2021-05 No [id number] .5mg Take 1 [facility] 0.5 mg 05-05 tablet by [facility] tablet 00:00: 00:00 mouth [place] 00 :00 daily as Medical needed for Branch Other (Anxiety). clonazePAM 2021-05 No [id number] .5mg Take 1 [facility] 0.5 mg 05-05 tablet by [facility] of tablet 00:00: 00:00 mouth [place] 00 :00 daily as Medical needed for Branch Other (Anxiety). clonazePAM 2021-05 No [id number] .5mg Take 1 [facility] 0.5 mg 05-05 tablet by [facility] of tablet 00:00: 00:00 mouth [place] 00 :00 daily as Medical needed for Branch Other (Anxiety). clonazePAM 2021-05 No [id number] .5mg Take 1 [facility] 0.5 mg 05-05 tablet by [facility] of tablet 00:00: 00:00 mouth [place] 00 :00 daily as Medical needed for Branch Other (Anxiety). clonazePAM 2021-05 No [id number] .5mg Take 1 [facility] 0.5 mg 05-05 tablet by [facility] of tablet 00:00: 00:00 mouth [place] 00 :00 daily as Medical needed for Branch Other (Anxiety). clonazePAM 2021-05 No [id number] .5mg Take 1 [facility] 0.5 mg 05-05 tablet by [facility] of tablet 00:00: 00:00 mouth [place] 00 :00 daily as Medical needed for Branch Other (Anxiety). clonazePAM 2021-05 No [id number] .5mg Take 1 [facility] 0.5 mg 05-05 tablet by [facility] of tablet 00:00: 00:00 mouth [place] 00 :00 daily as Medical needed for Branch Other (Anxiety). dextroamphe 2021-05 Yes [id number] 15mg Take 1 [facility] tamine-amph 0-14 tablet by [facility] of etamine 15 00:00: mouth in [place] mg tablet 00 the Medical morning Branch and 1 tablet at noon and 1 tablet in the evening. dextroamphe 2021-05 Yes [id number] 15mg Take 1 [facility] tamine-amph 0-14 tablet by [facility] of etamine 15 00:00: mouth in [place] mg tablet 00 the Medical morning Branch and 1 tablet at noon and 1 tablet in the evening. dextroamphe 2021-05 Yes [id number] 15mg Take 1 [facility] tamine-amph 0-14 tablet by [facility] of etamine 15 00:00: mouth in [place] mg tablet 00 the Medical morning Branch and 1 tablet at noon and 1 tablet in the evening. dextroamphe 2021-05 Yes [id number] 15mg Take 1 [facility] tamine-amph 0-14 tablet by [facility]y of etamine 15 00:00: mouth in [place] mg tablet 00 the Medical morning Branch and 1 tablet at noon and 1 tablet in the evening. dextroamphe 2021-05- No [id number] 15mg Take 1 [facility] tamine-amph 0-14 11-11 tablet by it y of etamine 15 00:00: 00:00 mouth in [place] mg tablet 00 :00 the Medical morning Branch and 1 tablet at noon and 1 tablet in the evening. dextroamphe 2021-05- No [id number] 15mg Take 1 [facility] tamine-amph 0-14 11-11 tablet by it y of etamine 15 00:00: 00:00 mouth in [place] mg tablet 00 :00 the Medical morning Branch and 1 tablet at noon and 1 tablet in the evening. dextroamphe 2021-05- No [id number] 15mg Take 1 [facility] tamine-amph 0-14 11-11 tablet by it y of etamine 15 00:00: 00:00 mouth in [place] mg tablet 00 :00 the Medical morning Branch and 1 tablet at noon and 1 tablet in the evening. desvenlafax 2021-05 Yes [id number] 100mg Take 1 [facility] in[facility] 0-10 tablet by [facility] succinate 00:00: mouth [place] 100 mg 24 00 the Medical hr tablet morning. Branch desvenlafax 2021-05 Yes [id number] 100mg Take 1 [facility] in[facility] 0-10 tablet by [facility] of succinate 00:00: mouth [place] 100 mg 24 00 the Medical hr tablet morning. Branch efrenfax 2021-05 Yes 100mg Take 1 [facility] in[facility] 0-10 tablet by [facility] of succinate 00:00: mouth [place] 100 mg 24 00 the Medical hr tablet morning. Branch efrenfax 2021-05 Yes 100mg Take 1 [facility] in[facility] 0-10 tablet by [facility] of succinate 00:00: mouth [place] 100 mg 24 00 the Medical hr tablet morning. Branch efrenfax 2021-05 Yes 100mg Take 1 [facility] in[facility] 0-10 tablet by [facility] of succinate 00:00: mouth [place] 100 mg 24 00 the Medical hr tablet morning. Branch efrenfax 2021-05 Yes 100mg Take 1 [facility] in[facility] 0-10 tablet by [facility] of succinate 00:00: mouth [place] 100 mg 24 00 the Medical hr tablet morning. Aleks schwartzfax 2021-05 Yes 100mg Take 1 [facility] in[facility] 0-10 tablet by [facility] succinate 00:00: mouth [place] 100 mg 24 00 the Medical hr tablet morning. Branch efrenfax 2021-05- No 100mg Take 1 [facility] in[facility] 0-10 12-03 tablet by [facility]y of succinate 00:00: 00:00 mouth in [place] 100 mg 24 00 :00 the Medical hr tablet morning. Aleks schwartzfax 2021-05- No 100mg Take 1 [facility] in[facility] 0-10 12-03 tablet by [facility] of succinate 00:00: 00:00 mouth in [place] 100 mg 24 00 :00 the Medical hr tablet morning. Branch lucitalafax 2021-05- No 100mg Take 1 [facility] in[facility] 0-10 12-03 tablet by [facility] of succinate 00:00: 00:00 mouth in [place] 100 mg 24 00 :00 the Medical hr tablet morning. Branch efrenfax 2021-05- No 100mg Take 1 [facility] in[facility] 0-10 12-03 tablet by [facility] of succinate 00:00: 00:00 mouth in [place] 100 mg 24 00 :00 the Medical hr tablet morning. Branch efrenfax 2021-05- No 100mg Take 1 [facility] in[facility] 0-10 12-03 tablet by it[facility] of succinate 00:00: 00:00 mouth in [place] 100 mg 24 00 :00 the Medical hr tablet morning. Aleks schwartzfax 2021-05- No 100mg Take 1 [facility] in[facility] 0-10 12-03 tablet by [facility] of succinate 00:00: 00:00 mouth in [place] 100 mg 24 00 :00 the [...] 00 :00 the Medical hr tablet morning. [facility] efrenfax 2021-05 Yes [id number] 50mg Take 1 [facility] in[facility] 0-04 tablet by [facility] succinate 00:00: mouth [place] (PRISTIQ[place] 00 the Medical 50 mg 24 hr morning. Bran ch tablet clonazePAM 2021-05 Yes [id number] .5mg Take 1 [facility] n[facility] 0.5 mg 0-04 tablet by [facility] of tablet 00:00: mouth once [place] 00 daily as Medical needed for Branch Other (Anxiety). clonazePAM 2021-05 Yes [id number] .5mg Take 1 [facility] n[facility] 0.5 mg 0-04 tablet by [facility] of tablet 00:00: mouth once [place] 00 daily as Medical needed for Branch Other (Anxiety). clonazePAM 2021-05 Yes [id number] .5mg Take 1 [facility] n[facility] 0.5 mg 0-04 tablet by [facility] of tablet 00:00: mouth once [place] 00 daily as Medical needed for Branch Other (Anxiety). clonazePAM 2021-05- No [id number] .5mg Take 1 [facility] 0.5 mg 0-04 11-03 tablet by [facility] tablet 00:00: 00:00 mouth [place] 00 :00 daily as Medical needed for Branch Other (Anxiety). clonazePAM 2021-05- No [id number] .5mg Take 1 [facility] 0.5 mg 0-04 11-03 tablet by [facility] of tablet 00:00: 00:00 mouth [place] 00 :00 daily as Medical needed for Branch Other (Anxiety). clonazePAM 2021-05 No [id number] .5mg Take 1 [facility] 0.5 mg 0-04 11-03 tablet by [facility] of tablet 00:00: 00:00 mouth [place] 00 :00 daily as Medical needed for Branch Other (Anxiety). desvenlafax 2021-05 No [id number] 50mg Take 1 [facility] in[facility] 0-04 10-10 tablet by [facility] of succinate 00:00: 00:00 mouth in [place] (PRISTIQ) 00 :00 the Medical 50 mg 24 hr morning. Bran ch tablet desvenlafax 2021-05- No [id number] 50mg Take 1 [facility] in[facility] 0-04 10-10 tablet by [facility] of succinate 00:00: 00:00 mouth in [place] ([facility]IST[place]) 00 :00 the Medical 50 mg 24 hr morning. Bran ch tablet desvenlafax 2021-05- No [id number] 50mg Take 1 [facility] in[facility] 0-04 10-10 tablet by [facility] of succinate 00:00: 00:00 mouth in [place] ([facility]IST[place]) 00 :00 the Medical 50 mg 24 hr morning. Bran ch tablet dextroamphe 2021- No [id number] 15mg Take 1 [facility] tamine-amph 9-05 10-03 tablet by it y of etamine 15 00:00: 00:00 mouth in [place] mg tablet 00 :00 the Medical morning Branch and 1 tablet at noon and 1 tablet in the evening. dextroamphe 2021-2021- No [id number] 15mg Take 1 [facility] tamine-amph -09 09- tablet by it y of etamine 15 00:00: 00:00 mouth in [place] mg tablet 00 :00 the Medical morning Branch and 1 tablet at noon and 1 tablet in the evening. dextroamphe 2021-2021- No [id number] 15mg Take 1 [facility] tamine-amph -09 09- tablet by it y of etamine 15 00:00: 00:00 mouth in [place] mg tablet 00 :00 the Medical morning Branch and 1 tablet at noon and 1 tablet in the evening. desvenlafax 2021-2021- No [id number] 50mg Take 1 [facility] in[facility] 01-02 tablet by [facility] of succinate 00:00: 00:00 mouth in [place] (PRISTIQ) 00 :00 the Medical 50 mg 24 hr morning. Bran ch tablet clonazePAM 2021- No [id number] .5mg Take 1 [facility] 0.5 mg 01-02 tablet by [facility] of tablet 00:00: 00:00 mouth [place] 00 :00 daily as Medical needed for Branch Other (Anxiety). desvenlafax 2021-2021- No [id number] 50mg Take 1 [facility] in[facility] 01-02 tablet by [facility]y of succinate 00:00: 00:00 mouth in [place] (PRISTIQ) 00 :00 the Medical 50 mg 24 hr morning. Bran ch tablet clonazePAM 2021- No [id number] .5mg Take 1 [facility] 0.5 mg 01-02 tablet by [facility] of tablet 00:00: 00:00 mouth [place] 00 :00 daily as Medical needed for Branch Other (Anxiety). desvenlafax 2021-0 2021- No [id number] 50mg Take 1 [facility] in[facility] -06 12- tablet by [facility] of succinate 00:00: 00:00 mouth in [place] (PRISTIQ) 00 :00 the Medical 50 mg 24 hr morning. Bran ch tablet clonazePAM 2021-2021- No [id number] .5mg Take 1 [facility] 0.5 mg -06 12- tablet by [facility] of tablet 00:00: 00:[place] mouth [place] 00 :00 daily as Medical needed for Branch Other (Anxiety). propranoloL 2022-0 Yes [id number] 40mg Take 1 [facility] 40 mg 8-19 tablet by [facility] of tablet 00:00: mouth in [place] the Medical morning Branch and 1 tablet in the evening. methIMAzole 2022-0 Yes [id number] 20mg Take 2 [facility] 10 mg 8-19 tablets by [facility] of tablet 00:00: mouth in [place] the Medical morning. Branch propranoloL 2022-0 Yes [id number] 40mg Take 1 [facility] 40 mg 8-19 tablet by [facility] of tablet 00:00: mouth in [place] the Medical morning Branch and 1 tablet in the evening. methIMAzole 2022-0 Yes [id number] 20mg Take 2 [facility] 10 mg 8-19 tablets by [facility] of tablet 00:00: mouth in [place] the Medical morning. Branch propranoloL 2-0 Yes [id number] 40mg Take 1 [facility] 40 mg 8-19 tablet by [facility] of tablet 00:00: mouth in [place] the Medical morning Branch and 1 tablet in the evening. methIMAzole 2022-0 Yes [id number] 20mg Take 2 [facility] 10 mg 8-19 tablets by [facility] of tablet 00:00: mouth in [place] the Medical morning. Branch propranoloL 2-0 Yes [id number] 40mg Take 1 [facility] 40 mg 8-19 tablet by [facility] of tablet 00:00: mouth in [place] the Medical morning Branch and 1 tablet in the evening. methIMAzole 2022-0 Yes [id number] 20mg Take 2 [facility] 10 mg 8-19 tablets by [facility] of tablet 00:00: mouth in [place] the Medical morning. Branch propranoloL 2022-0 Yes [id number] 40mg Take 1 [facility] 40 mg 8-19 tablet by [facility] of tablet 00:00: mouth in [place] the Medical morning Branch and 1 tablet in the evening. methIMAzole 2022-0 Yes [id number] 20mg Take 2 [facility] 10 mg 8-19 tablets by [facility] of tablet 00:00: mouth in [place] the Medical morning. Branch propranoloL 2022-0 Yes [id number] 40mg Take 1 [facility] 40 mg 8-19 tablet by [facility] of tablet 00:00: mouth in [place] the Medical morning Branch and 1 tablet in the evening. methIMAzole 2022-0 Yes [id number] 20mg Take 2 [facility] 10 mg 8-19 tablets by [facility] of tablet 00:00: mouth in [place] 00 the Medical morning. Branch propranoloL 2021-0 2021- No [id number] 40mg Take 1 [facility] 40 mg 8-19 11-11 tablet by [facility] of tablet 00:00: 00:00 mouth in [place] 00 :00 the Medical morning Branch and 1 tablet in the evening. methIMAzole 2021-0 2- No [id number] 20mg Take 2 [facility] 10 mg 8-19 11-11 tablets by [facility] of tablet 00:00: 00:00 mouth in [place] 00 :00 the Medical morning. Branch propranoloL 2021-0 2- No [id number] 40mg Take 1 [facility] 40 mg 8-19 11-11 tablet by [facility] of tablet 00:00: 00:00 mouth in [place] 00 :00 the Medical morning Branch and 1 tablet in the evening. methIMAzole 2021-0 2- No [id number] 20mg Take 2 [facility] 10 mg 8-19 11-11 tablets by [facility] of tablet 00:00: 00:00 mouth in [place] 00 :00 the Medical morning. Branch propranoloL 2021-0 2021- No [id number] 40mg Take 1 [facility] 40 mg 8-19 11-11 tablet by [facility] of tablet 00:00: 00:00 mouth in [place] 00 :00 the Medical morning Branch and 1 tablet in the evening. methIMAzole 2021-0 2021- No [id number] 20mg Take 2 [facility] 10 mg 8-19 11-11 tablets by [facility] of tablet 00:00: 00:00 mouth in [place] 00 :00 the Medical morning. Branch baclofen 10 2021-0 Yes [facility] mg tablet 12-04 ity of 00:00: [place] 00 Medical Branch baclofen 10 2021-0 Yes [facility] mg tablet 12-04 ity of 00:00: [place] 00 Medical Branch baclofen 10 2021-0 Yes Univer s mg tablet 12-04 ity of 00:00: [place] 00 [facility] baclofen 10 2021-0 Yes Univer s mg tablet 12-04 ity of 00:00: [place] 00 [facility] baclofen 10 2021-0 Yes Univer s mg tablet 12-04 ity of 00:00: [place] 00 [facility] baclofen 10 2021-0 Yes Univer s mg tablet 12-04 ity of 00:00: [place] [facility] baclofen 10 2-0 Yes Univer s mg tablet 8 ity of 00:00: [place] [facility] baclofen 10 2-0 Yes Univer s mg tablet 12-04 ity of 00:00: [place] [facility] baclofen 10 2-0 Yes Univer s mg tablet 12-04 ity of 00:00: [place] [facility] baclofen 10 2-0 Yes Univer s mg tablet 8 ity of 00:00: [place] [facility] baclofen 10 2-0 Yes Univer s mg tablet 12-04 ity of 00:00: [place] [facility] baclofen 10 2-0 Yes Univer s mg tablet 12-04 ity of 00:00: [place] [facility] baclofen 10 2-0 Yes Univer s mg tablet 12-04 ity of 00:00: [place] [facility] baclofen 10 2-0 Yes Univer s mg tablet 12-04 ity of 00:00: [place] [facility] baclofen 10 2021-0 Yes Univer s mg tablet 12-04 ity of 00:00: [place] [facility] baclofen 10 2-0 Yes Univer s mg tablet 12-04 ity of 00:00: [place] [facility] baclofen 10 2-0 Yes Univer s mg tablet 12-04 ity of 00:00: [place] [facility] baclofen 10 2-0 Yes Univer s mg tablet 12-04 ity of 00:00: [place] [facility] baclofen 10 2-0 Yes Univer s mg tablet 12-04 ity of 00:00: [place] [facility] baclofen 10 2-0 Yes Univer s mg tablet 12-04 ity of 00:00: [place] [facility] baclofen 10 2-0 Yes Univer s mg tablet 12-04 ity of 00:00: [place] [facility] baclofen 10 2-0 Yes Univer s mg tablet 12-04 ity of 00:00: [place] [facility] baclofen 10 2-0 Yes Univer s mg tablet 12-04 ity of 00:00: [place] [facility] baclofen 10 2-0 Yes Univer s mg tablet 12-04 ity of 00:00: [place] 00 [facility] baclofen 10 2022- No Unive rs mg tablet 12-04 ity of 00:00: 00:00 00 :00 Medical Branch baclofen 10 2022- No Unive rs mg tablet 12-04 ity of 00:00: 00:00 00 :00 Medical Branch baclofen 10 2022- No Unive rs mg tablet 12-04 ity of 00:00: 00:00 [place] 00 :00 [facility] baclofen 10 2022- No Unive rs mg tablet 12-04 ity of 00:00: 00:00 00 :00 Medical Branch baclofen 10 2022- No Unive rs mg tablet 12-04 ity of 00:00: 00:00 [place] 00 :00 [facility] desvenlafax 2021- No [id number] 50mg Take 1 Univers ine 12-02 tablet by ity of succinate 00:00: 00:00 mouth in [place] as (PRISTIQ) 00 :00 the Medical 50 mg 24 hr morning. Bran ch tablet clonazePAM 2021- No [id number] .5mg Take 1 Univers 0.5 mg 12-02 tablet by ity of tablet 00:00: 00:[place] daily [place] Medical needed for Branch Other (Anxiety). dextroamphe 2021- No [id number] 15mg Take 1 Univers tamine-amph 12-02 tablet [...] nn 00 30 tab, 2 Refill(s), Pharmacy: [facility] [id number], 167.64, cm, 08/05/21 9:46:00 CDT, Height, 79.545, kg, 08/05/21 9:46:00 CDT, Weight baclofen 10 2022-0 Yes 10 mg = 1 M emoria mg oral 4-05 tab, PO, l tablet 15:04: Bedtime, # Sonia nn 00 30 tab, 2 Refill(s), Pharmacy: [facility] [id number], 167.64, cm, 08/05/21 9:46:00 CDT, Height, 79.545, kg, 08/05/21 9:46:00 CDT, Weight 24 HR Yes 50 mg = 1 [...] tamine Sulfate 3.75 MG Oral Tablet [Adderall] Pristiq 50 0 Yes 50 mg = 1 Me moria mg oral 2-23 tab, PO, l tablet, 21:05: Daily, # Terry n extended 00 30 tab, 0 release Refill(s) Adderall 15 2021-0 Yes 15 mg = 1 M emoria mg oral 2-23 tab, PO, l tablet 21:05: BID, # 30 Terry n 00 tab, 0 Refill(s) Pristiq 50 2021-0 Yes 50 mg = 1 Me moria mg oral 2-23 tab, PO, l tablet, 21:05: Daily, # Terry n extended 00 30 tab, 0 release Refill(s) Adderall 15 2021-0 Yes 15 mg = 1 M emoria mg oral 2-23 tab, PO, l tablet 21:05: BID, # 30 Terry n 00 tab, 0 Refill(s) 24 HR Yes 50 mg = 1 Memoria Desvenlafax 2-23 tab, PO, l ine 50 MG 21:05: Daily, # Herm antoinette Extended 00 30 tab, 0 Release Refill(s) Tablet [Pristiq] Amphetamine 0 Yes 15 mg = 1 M emoria aspartate 2-23 tab, PO, l 3.75 MG / 21:05: BID, # 30 Her stone Amphetamine 00 tab, 0 Sulfate Refill(s) 3.75 MG / Dextroamphe tamine saccharate 3.75 MG / Dextroamphe tamine Sulfate 3.75 MG Oral Tablet [Adderall] clonazePAM 2021-0 Yes 0.5 mg = 1 M emoria 0.5 mg oral 2-23 tab, PO, l tablet 21:04: TID, # 90 Terry n 00 tab, 0 Refill(s) clonazePAM 2021-0 Yes 0.5 mg = 1 M emoria 0.5 mg oral 2-23 tab, PO, l tablet 21:04: TID, # 90 Terry n 00 tab, 0 Refill(s) nicotine 21 2020-0 Yes Univer s mg/24 hr 8-25 ity of patch 00:00: [place] [facility] nicotine 21 2020-0 Yes Univer s mg/24 hr 8-25 ity of patch 00:00: [place] [facility] nicotine 21 2020-0 Yes Univer s mg/24 hr 8-25 ity of patch 00:00: [place] [facility] nicotine 21 1-0 Yes Univer s mg/24 hr 8-25 ity of patch 00:00: [place] [facility] nicotine 21 2020-0 Yes Univer s mg/24 hr 8-25 ity of patch 00:00: [place] [facility] nicotine 21 1-0 Yes Univer s mg/24 hr 8-25 ity of patch 00:00: [place] [facility] nicotine 21 1-0 Yes Univer s mg/24 hr 8-25 ity of patch 00:00: [place] [facility] nicotine 21 1-0 Yes Univer s mg/24 hr 8-25 ity of patch 00:00: [place] [facility] Branch nicotine 21 1-0 Yes Univer s mg/24 hr 8-25 ity of patch 00:00: [place] [facility] nicotine 21 1-0 Yes Univer s mg/24 hr 8-25 ity of patch 00:00: [place] [facility] nicotine 21 1-0 Yes Univer s mg/24 hr 8-25 ity of patch 00:00: [place] [facility] nicotine 21 1-0 Yes Univer s mg/24 hr 8-25 ity of patch 00:00: [place] [facility] nicotine 21 2021-0 Yes Univer s mg/24 hr 8-25 ity of patch 00:00: [place] [facility] nicotine 21 2021-0 Yes Univer s mg/24 hr 8-25 ity of patch 00:00: [place] [facility] nicotine 21 2021-0 Yes Univer s mg/24 hr 8-25 ity of patch 00:00: [place] [facility] nicotine 21 2021-0 Yes Univer s mg/24 hr 8-25 ity of patch 00:00: [place] [facility] nicotine 21 2021-0 Yes Univer s mg/24 hr 8-25 ity of patch 00:00: [place] [facility] nicotine 21 2021-0 Yes Univer s mg/24 hr 8-25 ity of patch 00:00: [place] [facility] nicotine 21 1-0 Yes Univer s mg/24 hr 8-25 ity of patch 00:00: [place] [facility] nicotine 21 2021-0 Yes Univer s mg/24 hr 8-25 ity of patch 00:00: [place] [facility] nicotine 21 2021-0 Yes Univer s mg/24 hr 8-25 ity of patch 00:00: [place] [facility] nicotine 21 2021-0 Yes Univer s mg/24 hr 8-25 ity of patch 00:00: [place] [facility] nicotine 21 2021-0 Yes Univer s mg/24 hr 8-25 ity of patch 00:00: [place] [facility] nicotine 21 2021-0 Yes Univer s mg/24 hr 8-25 ity of patch 00:00: [place] [facility] nicotine 21 2021-0 Yes Univer s mg/24 hr 8-25 ity of patch 00:00: [place] [facility] nicotine 21 2021-0 Yes Univer s mg/24 hr 8-25 ity of patch 00:00: [place] [facility] nicotine 21 2021-0 Yes Univer s mg/24 hr 8-25 ity of patch 00:00: [place] [facility] nicotine 21 2021-0 Yes Univer s mg/24 hr 8-25 ity of patch 00:00: [place] [facility] nicotine 21 2021-0 Yes Univer s mg/24 hr 8-25 ity of patch 00:00: [place] [facility] nicotine 21 2021-0 Yes Univer s mg/24 hr 8-25 ity of patch 00:00: [place] [facility] nicotine 21 2021-0 Yes Univer s mg/24 hr 8-25 ity of patch 00:00: [place] [facility] nicotine 21 2021-0 Yes Univer s mg/24 hr 8-25 ity of patch 00:00: [place] [facility] nicotine 21 2021-0 Yes Univer s mg/24 hr 8-25 ity of patch 00:00: [place] [facility] nicotine 21 2021-0 Yes Univer s mg/24 hr 8-25 ity of patch 00:00: [place] [facility] nicotine 21 2021-0 Yes Univer s mg/24 hr 8-25 ity of patch 00:00: [place] [facility] nicotine 21 2021-0 Yes Univer s mg/24 hr 8-25 ity of patch 00:00: [place] [facility] nicotine 21 1-0 Yes Univer s mg/24 hr 8-25 ity of patch 00:00: [place] [facility] nicotine 21 2021-0 Yes Univer s mg/24 hr 8-25 ity of patch 00:00: [place] [facility] nicotine 21 1-0 Yes Univer s mg/24 hr 8-25 ity of patch 00:00: [place] [facility] nicotine 21 2021-0 Yes Univer s mg/24 hr 8-25 ity of patch 00:00: [place] [facility] nicotine 21 2021-0 Yes Univer s mg/24 hr 8-25 ity of patch 00:00: [place] [facility] nicotine 21 2021-0 Yes Univer s mg/24 hr 8-25 ity of patch 00:00: [place] [facility] nicotine 21 2021-0 Yes Univer s mg/24 hr 8-25 ity of patch 00:00: [place] [facility] nicotine 21 2021-0 Yes Univer s mg/24 hr 8-25 ity of patch 00:00: [place] [facility] nicotine 21 2021-0 Yes Univer s mg/24 hr 8-25 ity of patch 00:00: [place] [facility] nicotine 21 2021-0 Yes Univer [...] 8-25 ity of patch 00:00: Medical Branch Loestrin 24 Loestrin 24 2018- Yes Pal 1 tablet Common Fe Fe 5-15 [facility] 00:00: - [facility] 00 [facility] Immunizations Ordered Filled Immunization Date Status Comments [facility] e Immunization Name Name TDAP (ADACEL) 2019-06-09 Completed University of VACCINE 00:00:00 [facility] TDAP (ADACEL) 2019-06-09 Completed University of VACCINE 00:00:00 [facility] TDAP (ADACEL) 2019-06-09 Completed University of VACCINE 00:00:00 [facility] TDAP (ADACEL) 2019-06-09 Completed University of VACCINE 00:00:00 [facility] TDAP (ADACEL) 2019-06-09 Completed University of VACCINE 00:00:00 [facility] TDAP (ADACEL) 2019-06-09 Completed University of VACCINE 00:00:00 [facility] TDAP (ADACEL) 2019-06-09 Completed University of VACCINE 00:00:00 [facility] TDAP (ADACEL) 2019-06-09 Completed University of VACCINE 00:00:00 [place] [facility] TDAP (ADACEL) 2019-06-09 Completed University of VACCINE 00:00:00 [facility] TDAP (ADACEL) 2019-06-09 Completed University of VACCINE 00:00:00 [facility] TDAP (ADACEL) 2019-06-09 Completed University of VACCINE 00:00:00 [facility] TDAP (ADACEL) 2019-06-09 Completed University of VACCINE 00:00:00 [place] [facility] TDAP (ADACEL) 2019-06-09 Completed University of VACCINE 00:00:00 [place] [facility] TDAP (ADACEL) 2019-06-09 Completed University of VACCINE 00:00:00 [place] [facility] TDAP (ADACEL) 2019-06-09 Completed University of VACCINE 00:00:00 [place] [facility] TDAP (ADACEL) 2019-06-09 Completed University of VACCINE 00:00:00 [place] [facility] TDAP (ADACEL) 2019-06-09 Completed University of VACCINE 00:00:00 [place] [facility] TDAP (ADACEL) 2019-06-09 Completed University of VACCINE 00:00:00 [place] [facility] TDAP (ADACEL) 2019-06-09 Completed University of VACCINE 00:00:00 [place] [facility] TDAP (ADACEL) 2019-06-09 Completed University of VACCINE 00:00:00 [facility] TDAP (ADACEL) 2019-06-09 Completed University of VACCINE 00:00:00 [facility] TDAP (ADACEL) 2019-06-09 Completed University of VACCINE 00:00:00 [facility] TDAP (ADACEL) 2019-06-09 Completed University of VACCINE 00:00:00 [facility] TDAP (ADACEL) 2019-06-09 Completed University of VACCINE 00:00:00 [facility] TDAP (ADACEL) 2019-06-09 Completed University of VACCINE 00:00:00 [place] [facility] TDAP (ADACEL) 2019-06-09 Completed University of VACCINE 00:00:00 [place] [facility] TDAP (ADACEL) 2019-06-09 Completed University of VACCINE 00:00:00 [place] [facility] TDAP (ADACEL) 2019-06-09 Completed University of VACCINE 00:00:00 [place] [facility] TDAP (ADACEL) 2019-06-09 Completed University of VACCINE 00:00:00 [place] [facility] TDAP (ADACEL) 2019-06-09 Completed University of VACCINE 00:00:00 [place] [facility] TDAP (ADACEL) 2019-06-09 Completed University of VACCINE 00:00:00 [place] [facility] TDAP (ADACEL) 2019-06-09 Completed University of VACCINE 00:00:00 [place] [facility] TDAP (ADACEL) 2019-06-09 Completed University of VACCINE 00:00:00 [place] [facility] TDAP (ADACEL) 2019-06-09 Completed University of VACCINE 00:00:00 [place] [facility] TDAP (ADACEL) 2019-06-09 Completed University of VACCINE 00:00:00 [place] [facility] TDAP (ADACEL) 2019-06-09 Completed University of VACCINE 00:00:00 [place] [facility] TDAP (ADACEL) 2019-06-09 Completed University of VACCINE 00:00:00 [place] [facility] TDAP (ADACEL) 2019-06-09 Completed University of VACCINE 00:00:00 [place] [facility] TDAP (ADACEL) 2019-06-09 Completed University of VACCINE 00:00:00 [place] [facility] TDAP (ADACEL) 2019-06-09 Completed University of VACCINE 00:00:00 [place] [facility] TDAP (ADACEL) 2019-06-09 Completed University of VACCINE 00:00:00 [facility] TDAP (ADACEL) 2019-06-09 Completed University of VACCINE 00:00:00 [facility] TDAP (ADACEL) 2019-06-09 Completed University of VACCINE 00:00:00 [facility] TDAP (ADACEL) 2019-06-09 Completed University of VACCINE 00:00:00 [facility] TDAP (ADACEL) 2019-06-09 Completed University of VACCINE 00:00:00 [facility] TDAP (ADACEL) 2019-06-09 Completed University of VACCINE 00:00:00 [place] [facility] TDAP (ADACEL) 2019-06-09 Completed University of VACCINE 00:00:00 [place] [facility] TDAP (ADACEL) 2019-06-09 Completed University of VACCINE 00:00:00 [facility] TDAP (ADACEL) 2019-06-09 Completed University of VACCINE 00:00:00 [facility] TDAP (ADACEL) 2019-06-09 Completed University of VACCINE 00:00:00 [facility] TDAP (ADACEL) 2019-06-09 Completed University of VACCINE 00:00:00 [facility] TDAP (ADACEL) 2019-06-09 Completed University of VACCINE 00:00:00 [facility] Vital Signs Vital Name Observation Time Observation Value Comments Source Systolic blood 2022-09-29 23:05:00 131 mm[Hg] Univer sity of pressure [facility] Diastolic blood 2022-09-29 23:05:00 89 mm[Hg] Unive rsity of pressure [facility] Heart rate 2022-09-29 23:05:00 78 /min Universi ty of [place] [facility] Body temperature 2022-09-29 23:05:00 37 Sana Univ ersity of [place] [facility] Respiratory rate 2022-09-29 23:05:00 17 /min Univ ersity of [place] [facility] Body weight 2022-09-29 23:05:00 78.926 kg Universi ty of [place] [facility] BMI 2022-09-29 23:05:00 28.96 kg/m2 Universi ty of [place] [facility] Oxygen saturation in 2022-09-29 23:05:00 98 /min University of Arterial blood by [facility] Pulse oximetry Branch Systolic blood 2022-05-08 23:02:00 124 mm[Hg] Univer sity of pressure [place] [facility] Diastolic blood 2022-05-08 23:02:00 85 mm[Hg] Unive rsity of pressure [place] [facility] Heart rate 2022-05-08 22:57:00 123 /min Universi ty of [place] [facility] Body temperature 2022-05-08 22:57:00 37 Sana Univ ersity of [place] [facility] Respiratory rate 2022-05-08 22:57:00 17 /min Univ ersity of [place] [facility] Body height 2022-05-08 22:57:00 165.1 cm Universi ty of [place] [facility] Body weight 2022-05-08 22:57:00 76.431 kg Universi ty of [place] [facility] BMI 2022-05-08 22:57:00 28.04 kg/m2 Universi ty of [place] [facility] Oxygen saturation in 2022-05-08 22:57:00 98 /min University of Arterial blood by [facility] kyra Pulse oximetry Branch Systolic blood 2021-12-19 17:45:00 127 mm[Hg] Univer sity of pressure [place] [facility] Diastolic blood 2021-12-19 17:45:00 84 mm[Hg] Unive rsity of pressure [place] [facility] Heart rate 2021-12-19 17:45:00 100 /min Universi ty of [place] [facility] Body height 2021-12-19 17:45:00 165.1 cm Universi ty of [place] [facility] Body weight 2021-12-19 17:45:00 71.668 kg Universi ty of [place] [facility] BMI 2021-12-19 17:45:00 26.29 kg/m2 Universi ty of [place] [facility] [place] Oxygen saturation in 2021-12-19 17:45:00 100 /min University of Arterial blood by [facility] Pulse oximetry Branch Systolic blood 2022-09-29 23:05:00 131 mm[Hg] Univer sity of pressure [place] [facility] Diastolic blood 2022-09-29 23:05:00 89 mm[Hg] Unive rsity of pressure [place] [facility] Heart rate 2022-09-29 23:05:00 78 /min Universi ty of [place] [facility] Body temperature 2022-09-29 23:05:00 37 Sana Univ ersity of [place] [facility] Respiratory rate 2022-09-29 23:05:00 17 /min Univ ersity of [place] [facility] Body weight 2022-09-29 23:05:00 78.926 kg Universi ty of [place] [facility] BMI 2022-09-29 23:05:00 28.96 kg/m2 Universi ty [facility] [place] Oxygen saturation in 2022-09-29 23:05:00 98 /min University of Arterial blood by [facility] Pulse oximetry Branch Systolic (mm Hg) 2022-08-19 16:36:00 Guilherme rial [place] Diastolic (mm Hg) 2022-08-19 16:36:00 Mem orial [place] Heart Rate 2022-08-19 16:36:00 [facility] [place] Height 2022-08-19 16:36:00 5 [ft_i] [facility] [place] Weight 2022-08-19 16:36:00 [facility] Calculated 2022-08-19 16:36:00 Memori al [place] Systolic (mm Hg) 2022-07-08 16:03:00 Guilherme rial [place] Diastolic (mm Hg) 2022-07-08 16:03:00 Mem orial [place] Heart Rate 2022-07-08 16:03:00 [facility] [place] Height 2022-07-08 16:03:00 5 [ft_i] [facility] [place] Weight 2022-07-08 16:03:00 [facility] [place] BMI Calculated 2022-07-08 16:03:00 Memori al [place] Systolic blood 2022-06-24 16:08:00 111 mm[Hg] Univer sity of pressure [place] [facility] Diastolic blood 2022-06-24 16:08:00 81 mm[Hg] Unive rsity of pressure [facility] Heart rate 2022-06-24 16:08:00 113 /min Universi ty [facility] Respiratory rate 2022-06-24 16:08:00 18 /[facility] 2022-06-24 16:08:00 [facility] 2022-06-24 16:08:00 77.111 kg [facility] BMI 2022-06-24 16:08:00 28.29 kg/m2 [facility] Systolic (mm Hg) 2022-06-03 15:30:00 Guilherme rial [place] Diastolic (mm Hg) 2022-06-03 15:30:00 Mem orial [place] Heart Rate 2022-06-03 15:30:00 [facility] [place] Height 2022-06-03 15:30:00 5 [ft_i] [facility] [place] Weight 2022-06-03 15:30:00 [facility] [place] BMI Calculated 2022-06-03 15:30:00 Memori [facility] [place] Systolic (mm Hg) 2022-05-20 16:17:00 Guilherme rial [place] Diastolic (mm Hg) 2022-05-20 16:17:00 Mem orial [place] Heart Rate 2022-05-20 16:17:00 [facility] Height 2022-05-20 16:17:00 5 [ft_i] [facility] [place] Weight 2022-05-20 16:17:00 [facility] BMI Calculated 2022-05-20 16:17:00 Memori al [place] Systolic blood 2022-05-08 23:02:00 124 mm[Hg] Univer sity of pressure [facility] Diastolic blood 2022-05-08 23:02:00 85 mm[Hg] Unive rsity of pressure [facility] Heart rate 2022-05-08 22:57:00 123 /min [facility] Body temperature 2022-05-08 22:57:00 37 Sana Univ ersity of [facility] Respiratory rate 2022-05-08 22:57:00 17 /min [facility] Body height 2022-05-08 22:57:00 165.1 cm Universi ty of [place] [facility] Body weight 2022-05-08 22:57:00 76.431 kg Universi ty [facility] [place] [facility] BMI 2022-05-08 22:57:00 28.04 kg/m2 Universi ty of [facility] Oxygen saturation in 2022-05-08 22:57:00 98 /min University of Arterial blood by [facility] Pulse oximetry Branch Systolic blood 2021-12-19 17:45:00 127 mm[Hg] Univer sity of pressure [place] [facility] Diastolic blood 2021-12-19 17:45:00 84 mm[Hg] Unive rsity of pressure [facility] Heart rate 2021-12-19 17:45:00 100 /min Universi ty of [facility] Body height 2021-12-19 17:45:00 165.1 cm Universi ty [facility] [place] Body weight 2021-12-19 17:45:00 71.668 kg Universi ty [facility] [place] BMI 2021-12-19 17:45:00 26.29 kg/m2 Universi ty [facility] [place] Oxygen saturation in 2021-12-19 17:45:00 100 /min University of Arterial blood by [facility] Pulse oximetry Branch Systolic (mm Hg) 2021-10-15 20:18:00 Guilherme rial [place] Diastolic (mm Hg) 2021-10-15 20:18:00 Mem orial [place] Heart Rate 2021-10-15 20:18:00 [facility] [place] Respitory Rate 2021-10-15 20:18:00 Memori al [place] Height 2021-10-15 20:18:00 166.37 cm [facility] [place] Weight 2021-10-15 20:18:00 [facility] [place] BMI Calculated 2021-10-15 20:18:00 Memori al [place] Systolic (mm Hg) 2021-08-05 14:46:00 Guilherme rial [place] Diastolic (mm Hg) 2021-08-05 14:46:00 Mem orial [place] Heart Rate 2021-08-05 14:46:00 [facility] [place] Respitory Rate 2021-08-05 14:46:00 Memori al [place] Height 2021-08-05 14:46:00 167.64 cm [facility] [place] Weight 2021-08-05 14:46:00 Rebecca Mossann BMI Calculated 2021-08-05 14:46:00 Nola Rodriguez Body temperature 2021-07-06 17:35:00 36.83 Sana [facility] Respiratory rate 2021-07-06 17:35:00 14 /min [facility] Weight 2021-07-01 14:17:00 Rebecca Mossann Systolic (mm Hg) 2021-07-01 14:17:00 Guilherme sun [place] Diastolic (mm Hg) 2021-07-01 14:17:00 Latonya Aguirre Heart Rate 2021-07-01 14:17:00 Rebecca [place] Respitory Rate 2021-07-01 14:17:00 Nola Rodriguez Procedures Procedure Date / Time Performing Clinician Source Performed XR HAND 3+ VW BILATERAL 2022-09-29 23:26:00 Sylvia Encarnacion [facility] XR WRIST 3+ VW LEFT 2022-09-29 23:23:00 Sylvia Encarnacion [facility] ASSIGNMENT OF BENEFITS 2022-06-24 16:50:15 Doctor Unassigned, [facility] Name Medical Branch ASSIGNMENT OF BENEFITS 2022-06-24 16:07:54 Doctor Unassigned, [facility] Name Medical Branch CONSENT/REFUSAL FOR 2022-06-24 16:07:37 Doctor Unaannette, [facility] DIAGNOSIS AND TREATMENT [place] [facility] [place] CONSENT/REFUSAL FOR 2022-06-24 16:07:37 [facility] DIAGNOSIS AND TREATMENT [place] [facility] AUTHORIZATION FOR RELEASE 2022-04-01 06:01:00 Doctor Rangel, [facility] [place] [facility] AUTHORIZATION FOR RELEASE 2022-04-01 06:01:00 Doctor Rangel, [facility] Name [facility] [place] CBC WITH DIFF 2021-12-19 19:11:00 Sujata Santiago [facility] [facility] COMP. METABOLIC PANEL 2021-12-19 19:11:00 Sujata Santiago [facility] ([id number]) [facility] [place] GLYCOSYLATED HEMOGLOBIN 2021-12-19 19:11:00 Sujata Santiago [facility] (A1C) [facility] THYROID STIMULATING 2021-12-19 19:11:[address] [facility] HORMONE [facility] TRIIODOTHYRONINE 2021-12-19 19:11:00 Sujata Santiago [facility] FREE T4 2021-12-19 19:11:00 Sujata Santiago [facility] [facility] TSH RECEPTOR ANTIBODY 2021-12-19 19:11:00 Santiago Sumner [facility] (TRAB) [facility] COMPREHENSIVE 2021-12-12 20:14:00 Sujata Santiago [facility] METABOLIC$PANEL W/EGFR-Q [facility] CBC (INCLUDES DIFF/PLT)-Q 2021-12-12 20:14:00 [facility]-Q 2021-12-12 20:14:00 Sujata Santiago [facility]ity [facility] HEMOGLOBIN A1C-Q 2021-12-12 20:14:00 Pamela Sujata [facility] POCT URINALYSIS 2021-12-12 19:20:00 Sujata Santiago [facility] URINE CULTURE 2021-12-12 19:19:00 Pamela Sujata [facility] HB ECG ROUTINE & RHYTHM 2021-12-12 17:59:04 Sujata Santiago [facility] STRIP [facility] Tubal ligation<sup>2</sup> Memor ial [place] Knee joint [facility] [place] operation<sup>1</sup> Encounters Start End Encounter Admission Attending Care Care Encounter Source Date/Time Date/Time Type Type Clinicians Facility Department ID 2021-02-27 Outpatient [facility] [id number] Univers 18:24:20 [facility] 2022-11-18 2022-11-18 Outpatient BUCKY LAWLER [id number] Memoria 10:30:00 10:30:00 11 l Timothy 2022-10-28 2022-10-28 Outpatient VANITA BRIZUELA [facility] [id number] Univers 11:00:00 11:00:00 VANITA LUCIANO [facility] 2022-09-29 2022-09-29 [facility] Shashank, 1.2.840.5 [id number] Univers 18:13:15 23:59:00 Encounter Sylvia 86952.1.1 it y of 3.104.2.7 [place] .3.894531 [facility] [place] 2022-09-29 2022-09-29 Hospital Shashank, 1.2.840.9 [id number] Univers 18:13:15 23:59:00 Encounter Sylvia 31783.1.1 it y of 3.104.2.7 [place] .3.532051 [facility] [place] 2022-09-29 2022-09-29 Outpatient R SHASHANK, [facility] [id number] Univers 18:13:14 23:59:00 SYLVIA ity of [facility] 2022-09-29 2022-09-29 [facility] Shashank, 1.2.840.0 [id number] Univers 18:13:14 23:59:00 Encounter Sylvia 44369.1.1 it y of 3.104.2.7 [place] .3.660567 [facility] .[facility] [place] 2022-09-29 2022-09-29 Urgent Unknown, Attending 1.2.840.1 [id number] Univers 18:00:00 18:29:49 Care Talat Encarnacionanda 19784.1.1 ity of 3.104.2.7 [place] .3.690862 [facility] .[facility] [place] 2022-09-29 2022-09-29 Travel 1.2.840.1 1.2.312.433 [id number] Univers 00:00:00 00:00:00 86624.1.1 350.1.13.10 ity of 3.104.2.[place].698 [place] .[place] 084.8 [facility] .8 [place] 2022-09-28 2022-09-28 Refill Rafy, 1.2.840.5 [id number] Univers 00:00:00 00:00:00 Donald 59506.1.1 ity of [place] 3.104.2.7 [place] .3.553771 [facility] .[facility] [place] 2022-09-25 2022-09-25 Refhardy Sumner 1.2.840.3 [id number] Univers 00:00:00 00:00:00 Santiago Rose 15533.1.1 ity of 3.104.2.7 [place] 668[address].692810 Medica l .8 [place] 2022-08-19 2022-08-20 Outpatient MHIE MNA [id number] Memoria 16:30:00 04:59:59 Neurology 10 l Kizzy Aguirre 2022-08-19 2022-08-19 Outpatient GOOD BaumanMISCHER MHMISCHER [id number] 11:30:00 23:59:59 Darien 10 Eduar 2022-08-19 2022-08-19 Outpatient MHIE MHIE [id number] Memoria 11:30:00 11:30:00 10 vanessa Aguirre 2022-08-19 2022-08-19 Outpatient MHIE MHIE [id number] Memoria 11:30:00 11:30:00 10 vanessa [place] 2022-07-19 2022-07-19 Donald Le 1.2.840.9 [id number] Univers 00:00:00 00:00:00 Fly 29663.1.1 ity of 3.104.2.7 [place] ..801070 Med[facility] l .[facility] [place] 2022-07-08 2022-07-09 Outpatient MHIE MNA [id number] Memoria 15:45:00 05:59:59 Neurology 09 l Kizzy Aguirre 2022-07-08 2022-07-09 Outpatient MHIE MNA [id number] Memoria 15:45:00 05:59:59 Neurology 09 l Kizzy Aguirre 2022-07-09 2022-07-09 Outpatient Billy SANTIAGO [facility] [id number] Univers 00:00:00 00:00:00 SUJATA bangura of [facility] 2022-07-08 2022-07-08 Outpatient GOOD BaumanMISCHER MHMISCHER [id number] 09:45:00 23:59:59 Dari[place] 09 [facility] 2022-07-08 2022-07-08 Outpatient MHIE MHIE [id number] Memoria 09:45:00 09:45:00 09 l Timothy 2022-07-06 2022-07-06 Refill Kimberly, 1.2.840.5 [id number] Univers 00:00:00 00:00:00 Santiago Rose 12492.1.1 ity of 3.104.2.7 [place] .3.905059 [facility] [place] 2022-06-24 2022-06-24 Outpatient R VANITA LUCIANO [facility] [id number] Univers 10:15:00 10:58:05 VANITA LUCIANO ity of [facility] 2022-06-24 2022-06-24 Orders Doctor 1.2.840.9 [id number] Univers 00:00:00 00:00:00 Only Unassigned, 06238.1.1 ity of [place] 3.104.2.7 [place] .3.522367 Medica l .8 [facility] 2022-06-24 2022-06-24 Travel 1.2.840.1 1.2.457.682 3924 [id number] Univers 00:00:00 00:00:00 18716.1.1 350.1.13.10 ity of 3.104.2.7 [place].698 [place].691777 084.8 Med[place] l .8 [place] 2022-06-21 2022-06-21 Refill Sumner, 1.2.840.5 [id number] Univers 00:00:00 00:00:00 Santiago Rose 12100.1.1 ity of 3.104.2.7 [place] .3.777579 Medica l .8 [facility] 2022-06-21 2022-06-21 Refill Donald Menendez 1.2.840.4 [id number] 1 [id number] Univers 00:00:00 00:00:00 C 53594.1.1 ity of 3.104.2.7 [place] .3.030239 [facility] .[facility] 2022-06-21 2022-06-21 Refill Doctor 1.2.840.5 [id number] Univers 00:00:00 00:00:00 Unassigned, 45674.1.1 ity of [place] 3.104.2.7 [place] .3.316060 [facility] .[facility] [place] 2022-06-19 2022-06-19 Ambulatory MHIE MNA [id number] Memoria 15:15:00 15:15:00 Pre-Reg Neurology 07 l Kizzy Aguirre 2022-06-19 2022-06-19 Ambulatory MHIE MNA [id number] Memoria 15:15:00 15:15:00 Pre-Reg Neurology 07 l Kizzy Aguirre 2022-06-19 2022-06-19 Outpatient MHIE MHIE [id number] Memoria 09:15:00 09:15:00 07 vanessa Aguirre 2022-06-19 2022-06-19 Outpatient VENITA BaumanSCHER MHMISCHER [id number] 09:15:00 09:15:00 [place]ari[place] 07 Eduar 2022-06-08 2022-06-08 Refill 1.2.840.0 [id number] [facility] 00:00:00 00:00:00 Unassigned, 23548.1.1 ity of [place] 3.104.2.7 [place] .3.443735 [facility] l .[facility] [place] 2022-06-03 2022-06-04 Outpatient MHIE MNA [id number] Memoria 15:30:00 05:59:59 Neurology 08 l Kizzy Aguirre 2022-06-03 2022-06-04 Outpatient MHIE MNA [id number] Memoria 15:30:00 05:59:59 Neurology 08 vanessa Aguirre 2022-06-03 2022-06-03 Outpatient VENITA BaumanSCHER MHMISCHER [id number] 09:30:00 23:59:59 [place] 08 Eduar 2022-06-03 2022-06-03 Outpatient MHIE MHIE [id number] Memoria 09:30:00 09:30:00 08 vanessa Aguirre 2022-06-03 2022-06-03 Refill Donald Menendez 1.2.840.0 [id number] [facility] 00:00:00 00:00:00 C 16066.1.1 ity of 3.104.2.7 [place] .3.392403 Medica l .8 [facility] 2022-06-01 2022-06-01 Donald Le 1.2.840.8 [id number] Univers 00:00:00 00:00:00 Fly 71196.1.1 ity of 3.104.2.7 [place] .3.678321 Med[facility] l .[facility] [place] 2022-05-20 2022-05-21 Outpatient MHIE MNA [id number] Memoria 16:00:00 05:59:59 Neurology 06 l Kizzy Aguirre 2022-05-20 2022-05-21 Outpatient MHIE MNA [id number] Memoria 16:00:00 05:59:59 Neurology 06 l Kizzy Aguirre 2022-05-20 2022-05-20 Outpatient VENITA BaumanSCHER MHMISCHER [id number] 10:00:00 23:59:[address] [place] [address] [place] [address] 2022-05-20 2022-05-20 Outpatient MHIE MHIE [id number] Memoria 10:00:00 10:00:00 06 l Timothy 2022-05-18 2022-05-20 Outside MHIE MNA [id number] Memoria 16:28:02 05:59:59 Medical Neurology 00 l Records Kizzy Aguirre 2022-05-18 2022-05-20 Outside MHIE MNA [id number] Memoria 16:28:02 05:59:59 Medical Neurology 00 l Records Kizzy Aguirre 2022-05-18 2022-05-19 Outpatient MISCHER MHMISCHER [id number] 10:28:02 23:59:59 2022-05-13 2022-05-13 Moises Sumner, 1.2.840.5 [id number] [facility] 00:00:00 00:00:00 Santiago Rose 92576.1.1 ity of 3.104.2.7 [place] .3.341016 Medica l .8 [place] 2022-05-08 2022-05-08 Urgent Unknown, Attending 1.2.840.1 [id number] Univers 17:00:00 17:49:21 Donald Roche 84055.1.1 ity of 3.104.2.7 [place] .3.258832 Medica l .8 [facility] 2022-05-08 2022-05-08 Outpatient R STEFFANIE III, [facility] [id number] Univers 17:00:00 17:00:00 DONALD ity of [facility] 2022-05-08 2022-05-08 Travel 1.2.840.1 1.2.560.543 [id number] [id number] Univers 00:00:00 00:00:00 13994.1.1 350.1.13.10 ity of 3.104.2.7 [place].698 [place] .3.5611[place] 084.8 Medica l .8 [place] 2022-04-03 2022-04-03 Telephone Pamela, 1.2.840.7 [id number] Univers 00:00:00 00:00:00 Sujata 05073.1.1 ity of 3.104.2.7 [place] .3.387893 Med[facility] l .8 [place] 2022-04-01 2022-04-01 Orders Doctor 1.2.840.9 [id number] Univers 00:00:00 00:00:00 Only Unassigned, 27857.1.1 ity of [place] 3.104.2.7 [place] .3.192523 Med[facility] l .8 [place] 2022-03-13 2022-03-13 Refhardy Sumner, 1.2.840.2 [id number] [id number] Univers 00:00:00 00:00:00 Santiago Rose 67573.1.1 ity of 3.104.2.7 [place] .3.197388 Med[facility] l .8 [place] 2022-02-09 2022-02-09 Outpatient R SELF, [facility] [id number] Univers 09:30:00 10:24:48 ROSAURA yueny o f [facility] 2022-02-03 2022-02-03 Outpatient R JARROD DEMARCO [facility] [id number] Univers 10:00:00 10:00:00 ity of [facility] 2022-01-14 2022-01-14 Outpatient R SELF, [facility] [id number] Univers 10:15:00 10:15:00 ROSAURA bangura o f [facility] 2021-12-22 2021-12-22 Telephone Pamela, 1.2.840.4 [id number] Univers 00:00:00 00:00:00 Sujata 82942.1.1 ity of 3.104.2.7 [place] .3.977382 Medica l .8 [place] 2021-12-22 2021-12-22 Telephone Pamela, 1.2.840.8 [id number] Univers 00:00:00 00:00:00 Sujata 61693.1.1 ity of 3.104.2.7 [place] .3.178790 [facility] l .[facility] [place] 2021-12-19 2021-12-19 Electroneurodiagnostic Technician Sujata Santiago 1.2.840.1 [id number] Univers 14:00:00 14:20:44 [place], [place] 336[address].1.1 ity of 3.104.2.7 [place] .3.336609 Medica l .8 [place] 2021-12-19 2021-12-19 Electroneurodiagnostic TechnicianSujata Mckeon 1.2.840.1 [id number] Univers 14:00:00 14:20:44 [place] 886[address].1.1 ity of 3.104.2.7 [place] .3.717266 Medica l .8 [place] 2021-12-19 2021-12-19 Electroneurodiagnostic TechnicianSujata Mckeon 1.2.840.1 [id number] Univers 14:00:00 14:20:44 [place] 93288.1.1 ity of 3.104.2.7 [place] .3.351943 Medica l .8 [place] 2021-12-19 2021-12-19 Outpatient R PAMELA, [facility] [id number] Univers 14:00:00 14:00:00 SUJATA bangura of [facility] 2021-12-19 2021-12-19 Office Kimberly 1.2.840.4 [id number] [id number] Univers 13:00:00 13:52:53 Visit Santiago H 44884.1.1 ity of 3.104.2.7 [place] .3.441674 Med[facility] l .8 [place] 2021-12-19 2021-12-19 Outpatient R KIMBERLY, [facility] [id number] Univers 13:00:00 13:52:53 SANTIAGO ity of [facility] 2021-12-19 2021-12-19 Travel 1.2.840.1 1.2.336.350 [id number] [id number] Univers 00:00:00 00:00:00 62727.1.1 350.1.13.10 ity of 3.104.2.[place].3.698 [place] .3.043270 084.8 Medica l .8 [place] 2021-12-19 2021-12-19 Travel 1.2.840.1 1.2.363.255 0962 2997 [facility] 00:00:00 00:00:00 84484.1.1 350.1.13.10 ity of 3.104.2.7 [place].3.698 [place] .3.329564 084.8 Medica l .8 [place] 2021-12-16 2021-12-16 Ambulatory nullFlavo MNA [id number] Memoria 15:45:00 15:45:00 Pre-Reg r Neurology 05 l Kizzy [place] 2021-12-16 2021-12-16 Ambulatory nullFlavo MNA [id number] Memoria 15:45:00 15:45:00 Pre-Reg r Neurology 05 l [place] 2021-12-16 2021-12-16 [id number] Memoria 10:45:00 10:45:00 05 vanessa Timothy 2021-12-16 2021-12-16 Outpatient HUSAM Bauman MISCHRYAN [id number] 10:45:00 10:45:00 [place] Kelly Witt 2021-12-16 2021-12-16 Travel 1.2.840.1 1.2.428.642 [id number] Univers 00:00:00 00:00:00 21153.1.1 350.1.13.10 ity of 3.104.2.7 [place].3.698 [place] .3.943101 084.8 Medica l .8 [place] 2021-12-16 2021-12-16 Travel 1.2.840.1 1.2.339.831 8059 [id number] Univers 00:00:00 00:00:00 29697.1.1 350.1.13.10 ity of 3.104.2.7 [place].3.698 [place] .3.770781 084.8 Medica l .8 [place] 2021-12-15 2021-12-15 Telephone Cotta, 1.2.840.6 [id number] [id number] Univers 00:00:00 00:00:00 Sujata 72151.1.1 ity of 3.104.2.7 [place] .3.150902 Medica l .8 [place] 2021-12-15 2021-12-15 Telephone Cheta, 1.2.840.8 [id number] [id number] Univers 00:00:00 00:00:00 Sujata 86502.1.1 ity of 3.104.2.7 [place] .3.915416 Medica l .8 [place] 2021-12-15 2021-12-15 Telephone Cheta, 1.2.840.2 [id number] [id number] Univers 00:00:00 00:00:00 Sujata 33878.1.1 ity of 3.104.2.7 [place] .3.052170 Medica l .8 [place] 2021-12-12 2021-12-12 Outpatient R PAMELA [facility] [id number] Univers 13:00:00 14:10:23 SUJATA ity of [facility] 2021-12-12 2021-12-12 Office Pamela, 1.2.840.1 [id number] Univers 13:00:00 14:10:23 Visit Sujata 75116.1.1 ity of 3.104.2.7 [place] .3.253088 Med[facility] l .8 [place] 2021-12-12 2021-12-12 [facility] [id number] Univers 13:00:00 14:10:23 SUJATA ity of [facility] 2021-12-12 2021-12-12 Office Cotta, 1.2.840.0 [id number] Univers 13:00:00 14:10:23 Visit Sujata 48372.1.1 ity of 3.104.2.7 [place] .3.994114 Medica l .8 [facility] 2021-12-12 2021-12-12 Office Cotta, 1.2.840.9 [id number] Univers 13:00:00 14:10:23 Visit Sujata 54030.1.1 ity of 3.104.2.7 [place] .3.779641 Medica l .8 [facility] 2021-12-12 2021-12-12 Abstract Cotta, 1.2.840.3 [id number] Univers 00:00:00 00:00:00 Sujata 72282.1.1 ity of 3.104.2.7 [place] .3.192482 Medica l .8 [facility] 2021-12-12 2021-12-12 Orders Cotta, 1.2.840.9 [id number] Univers 00:00:00 00:00:00 Only Sujata 74530.1.1 ity of 3.104.2.7 [place] .3.771251 Medica l .8 [facility] 2021-12-12 2021-12-12 Orders Cotta, 1.2.840.2 [id number] Univers 00:00:00 00:00:00 Only Sujata 15029.1.1 ity of 3.104.2.7 [place] .3.635921 Medica l .8 [facility] 2021-12-12 2021-12-12 Travel 1.2.840.1 1.2.590.484 0520 3378 Univers 00:00:00 00:00:00 38927.1.1 350.1.13.10 ity of 3.104.2.7 [place].7.3.698 [place] .3.540274 084.8 Medica l .8 [place] 2021-12-12 2021-12-12 Abstract Cotta, 1.2.840.1 [id number] 1923 Univers 00:00:00 00:00:00 Sujata 48500.1.1 ity of 3.104.2.7 [place] .3.411779 Medica l .8 [place] 2021-12-12 2021-12-12 Orders Chetjonathan, 1.2.840.5 [id number] Univers 00:00:00 00:00:00 Only Sujata 53138.1.1 ity of 3.104.2.7 [place] .3.754322 Medica l .8 [place] 2021-12-12 2021-12-12 Travel 1.2.840.1 1.2.923.621 5479 3378 Univers 00:00:00 00:00:00 91058.1.1 350.1.13.10 ity of 3.104.2.7 4.[place].7.3.698 [place] .3.176660 084.8 Medica l .8 [place] 2021-12-12 2021-12-12 Abstract Pamela, 1.2.840.4 [id number] 3 Univers 00:00:00 00:00:00 Sujata 04091.1.1 ity of 3.104.2.7 [place] .3.948763 Med[facility] l .8 [place] 2021-11-26 2021-11-26 Outpatient R PAMELA [facility] [id number] Univers 10:00:00 10:00:00 SUJATA ity of [facility] 2021-11-17 2021-11-17 [facility] 1.2.840.114 [id number] Univers 00:00:00 00:00:00 Sujata HEALTH 350.1.13.10 it y of [place] 4.2.7.2.686 Vicente as RONALD?BLEA 791.5762259 Nm jacob [address] [facility] 2021-11-17 2021-11-17 Abstract Pamela, 1.2.840.7 [id number] Univers 00:00:00 00:00:00 Sujata 51322.1.1 ity of 3.104.2.7 [place] .3.732789 Medica l .8 [place] 2021-11-17 2021-11-17 Abstract Pamela, 1.2.840.2 [id number] 00:00:00 00:00:00 Sujata 21701.1.1 ity 3.104.2.7 [place] .3.035643 Medica l .8 [place] 2021-10-15 2021-10-16 Outpatient nullFlavo MNA [id number] Memoria 20:00:00 04:59:59 r Neurology 04 l Kizzy Aguirre 2021-10-15 2021-10-16 Outpatient nullFlavo MNA [id number] Memoria 20:00:00 04:59:59 r Neurology 04 l Kizzy Aguirre 2021-10-15 2021-10-15 Outpatient HUSAM Bauman MISCHER [id number] 15:00:00 23:59:59 Draien Orville Witt 2021-10-15 2021-10-15 Outpatient BUCKY LAWLER [id number] Memoria 15:00:00 15:00:00 04 vanessa Aguirre 2021-09-16 2021-09-16 Ambulatory nullFlavo MNA [id number] Memoria 16:45:00 16:45:00 Pre-Reg r Neurology 03 l Kizzy Mossann 2021-09-16 2021-09-16 Ambulatory nullFlavo MNA [id number] Memoria 16:45:00 16:45:00 Pre-Reg r Neurology 03 l Kizzy [place] 2021-09-16 2021-09-16 Outpatient GOODIE LAYO [id number] Memoria 11:45:00 11:45:00 03 vanessa Aguirre 2021-09-16 2021-09-16 Outpatient HUSAM Bauman MISCHER [id number] 11:45:00 11:45:00 [place] 03 Eduar 2021-09-03 2021-09-03 Outpatient VANITA BRIZUELA [facility] [id number] [facility] 16:15:00 16:47:06 VANITA LUCIANO [facility] [place] 2021-09-03 2021-09-03 Outpatient VANITA BRIZUELA [facility] [id number] [facility] 16:15:00 16:15:00 VANITA LUCIANO [facility] [place] 2021-09-03 2021-09-03 Outpatient R VANITA LUCIANO [facility] [id number] Univers 16:15:00 16:15:00 VANITA LUCIANO kimmie [facility] [place] 2021-09-03 2021-09-03 Travel 1.2.840.1 1.2.506.571 [id number] Univers 00:00:00 00:00:00 39470.1.1 350.1.13.10 ity of 3.104.2.[place].698 [place] .3.629959 084.8 Medica l [address] [place] [address] 2021-08-05 2021-08-06 Outpatient nullFlavo MNA [id number] Memoria 14:45:00 04:59:59 r Neurology 02 [place] 2021-08-05 2021-08-06 Outpatient nullFlavo MNA [id number] Memoria 14:45:00 04:59:59 r Neurology 02 l Kizzy [place] 2021-08-05 2021-08-05 Outpatient Merna MISCHER MISCHER [id number] 09:45:00 23:59:59 [place] Bettina Eduar 2021-08-05 2021-08-05 Outpatient MHIE IE [id number] Memoria 09:45:00 09:45:00 02 vanessa Aguirre 2021-07-28 2021-07-28 Outpatient R SELF, [facility] [id number] Univers 11:00:00 11:00:00 ROSAURA hummel [facility] 2021-07-06 2021-07-06 Outpatient R ZHOU, [facility] [id number] Univers 11:40:00 11:58:03 VANITA hummel [facility] 2021-07-06 2021-07-06 Urgent Zhou, 1.2.840.9 [id number] Univers 11:40:00 11:58:03 Jennifer Paredes 30368.1.1 i ty of 3.104.2.7 [place] .3.469777 Medica l .8 [place] 2021-07-06 2021-07-06 Travel 1.2.840.1 1.2.533.198 [id number] [id number] Univers 00:00:00 00:00:00 22212.1.1 350.1.13.10 ity of 3.104.2.[place].3.698 [place] .3.922902 084.8 Medica l .8 [place] 2021-07-01 2021-07-02 Outpatient nullFlavo MNA [id number] Memoria 14:15:00 05:59:59 r Neurology 01 l Kizzy Aguirre 2021-07-01 2021-07-02 Outpatient nullFlavo MNA [id number] Memoria 14:15:00 05:59:59 r Neurology 01 l Kizzy Mossann 2021-07-01 2021-07-01 Outpatient VENITA BaumanSCHRYAN BELEMSCHER [id number] 08:15:00 23:59:59 [place] 01 Eduar 2021-07-01 2021-07-01 Outpatient MHIE BUCKY [id number] Memoria 08:15:00 08:15:00 01 vanessa Aguirre 2021-06-25 2021-06-26 Outpatient nullFlavo MNA [id number] Memoria 20:45:00 05:59:59 r Neurology 00 l Kizzy Mossann 2021-06-25 2021-06-26 Outpatient nullFlavo MNA [id number] Memoria 20:45:00 05:59:59 r Neurology 00 l Kizzy Aguirre 2021-06-25 2021-06-25 Outpatient HUSAM Bauman MISCHER [id number] 14:45:00 23:59:59 [place] 00 Eduar 2021-06-25 2021-06-25 Outpatient MHIE MHIE [id number] Memoria 14:45:00 14:45:00 00 vanessa Timothy 2021-06-02 2021-06-02 Outpatient Billy ANNA, [facility] [id number] Univers 09:30:00 10:39:22 ROSAURA bangura o f [facility] 2021-06-02 2021-06-02 Orders Doctor 1.2.840.9 [id number] Univers 00:00:00 00:00:00 Only Unassigned, 77610.1.1 ity of [place] 3.104.2.7 [place] .3.150966 Medica l .8 [place] 2021-06-02 2021-06-02 Travel 1.2.840.1 1.2.272.786 2028 [id number] Univers 00:00:00 00:00:00 95302.1.1 350.1.13.10 ity of 3.104.2.7 [place]7.3.698 [place] .3.801531 084.8 Medica l .8 [place] 2021-05-31 2021-05-31 Travel 1.2.840.1 1.2.744.442 2143 [id number] Univers 00:00:00 00:00:00 87138.1.1 350.1.13.10 ity of 3.104.2.7 [place].3.698 [place] .3.264999 084.8 Medica l .8 [place] 2021-04-01 2021-04-01 Outpatient R ADUM, [facility] [id number] Univers 13:30:00 13:30:00 NATY [facility] 2021-03-05 2021-03-05 Outpatient R JADA, [facility] [id number] Univers 14:30:00 14:30:00 RUBIN [facility] 2021-02-20 2021-02-20 Outpatient R JARROD DEMARCO [facility] [id number] Univers 15:30[facility]00 [facility]-12-30 Outpatient R SELF, [facility] [id number] Univers 11:00:00 11:00:00 ROSAURA alpakimmie hummel [facility] 2020-12-09 2020-12-09 Outpatient R SELF, [facility] [id number] Univers 08:45:00 08:45:00 ROSAURA schulz estephanie [facility] 2020-11-11 2020-11-11 Outpatient R SELF, [facility] [id number] Univers 08:45:00 08:45:00 ROSAURA yuenkimmie hummel [facility] 2020-10-23 2020-10-23 Outpatient R WILFRIDO [facility] [id number] Univers 14:30:00 14:30:00 ROSAURA itkimmie o f [facility] 2020-10-23 2020-10-23 Travel 1.2.840.1 [id number] Univers 00:00:00 00:00:00 68102.1.1 350.1.13.10 ity of 3[place] .3.763[place] 084.8 Medica l .8 [place] 2020-07-23 2020-07-23 Patient Valdemar, 1.2.840.5 [id number] Univers 00:00:00 00:00:00 Outreach Lloyd 67781.1.1 ity of [place] 3.104.2.7 [place] .3.065089 Medica l .8 [place] 2020-06-13 2020-06-13 [facility] [id number] Univers 00:00:00 00:00:00 LARA bangura [facility] [place] 2020-05-10 2020-05-10 [facility] 1.2.840.114 [id number] Univers 11:40:00 23:59:00 Encounter Lara [facility] 350.1.13.10 [place] [phone] [place] [id number] ([facility]) 2020-05-10 2020-05-10 Office Lara Dietrich [facility] 1.2.840.11 [id number] Univers 10:52:40 11:07:40 Visit Chris Rangel [facility] 350.1.13.10 [place] [phone] [address] Office Building 2020-05-10 2020-05-10 [facility] [id number] Univers 10:45:00 10:45:00 RANGEL bangura [facility] [place] 2020-04-11 2020-04-11 [facility] [id number] [id number] Univers 14:34:29 15:07:41 Visit Don [facility] 350.1.13.10 it y of Surgical 4.2.7.2.686 [place] as Specialti [phone] Nm dical [address] 2020-04-11 2020-04-11 Outpatient R BUTTERFIELD, [facility] [id number] Univers 14:45:00 14:45:00 DON bangura [facility] [place] 2020-04-09 2020-04-09 Orders Doctor YAIMA 1.2.840.114 [id number] Univers 00:00:00 00:00:00 Only Unassigned, DANI 350.1.13.10 ity of [place] [facility] 4.2.7.2.686 Vicente as [id number] [address] 2020 2020 [facility] [id number] Univers 09:00:00 09:00:00 [facility] 2020-03-18 2020-03-18 Orders Doctor YAIMA 1.2.840.114 [id number] Univers 00:00:00 00:00:00 Only Unassigned, DANI 350.1.13.10 ity of [place] [facility] 4.2.7.2.686 Vicente as [id number] [address] 2020-02-28 2020-02-28 Outpatient R SELF, [facility] [id number] Univers 13:00:00 13:00:00 ROSAURA hummel [facility] 2020-01-24 2020-01-24 Outpatient R SELF, [facility] [id number] Univers 16:00:00 16:00:00 ROSAURA hummel [facility] 2019-12-27 2019-12-27 Outpatient R JORDAN, [facility] [id number] Univers 16:00:00 16:00:00 ROSANNA bangura [facility] [place] 2019-12-11 2019-12-11 Outpatient R SELF, [facility] [id number] Univers 09:30:00 09:30:00 ROSAURA hummel [facility] 2019-10-25 2019-10-25 Outpatient R RAMON, [facility] [id number] Univers 14:30:00 14:30:00 MARKUS bangura of [facility] 2019-10-02 2019-10-02 Telephone Ermelinda, 1.2.840.4 [id number] Univers 00:00:00 00:00:00 Leelee 02869.1.1 ity of 3.104.2.7 [place] .3.113826 Medica l .8 [place] 2019-09-28 2019-09-28 [id number] Univers 15:15:00 15:15:00 LEELEE bangura of [facility] 2019-09-20 2019-09-20 Orders Doctor 1.2.840.6 [id number] Univers 00:00:00 00:00:00 Only Unassigned, 85789.1.1 ity of [place] 3.104.2.7 [place] .3.782081 Medica l .8 [place] 2019-09-14 2019-09-14 [facility] [id number] Univers 10:00:00 10:00:00 LEELEE bangura of [facility] 2019-09-13 2019-09-13 Travel 1.2.840.1 1.2.721.901 7164 [id number] Univers 00:00:00 00:00:00 57217.1.1 350.1.13.10 ity of 3.104.2.7 [place].698 [place] .[place] 084.8 [facility] .[facility] [place] 2019-09-09 2019-09-09 Telephone Ermelinda, 1.2.840.4 [id number] Univers 00:00:00 00:00:00 Leelee 46213.1.1 ity of 3.104.2.7 [place] .3.080273 [facility] .[facility] [place] 2019-09-08 2019-09-08 Electroneurodiagnostic Technician WadsworthLeelee 1.2.840.1 1023 [id number] Univers 09:28:10 09:43:10 Visit 2, Adc Lab 20785.1.1 i ty of 3.104.2.7 [place] .3.040184 [facility] .[facility] [place] 2019-09-08 2019-09-08 Routine Wadsworth, 1.2.840.6 [id number] Univers 08:33:40 09:21:27 Leelee 25355.1.1 ity of Visit 3.104.2.7 [place] .3.205164 Med[facility] .[facility] [place] 2019-09-08 2019-09-08 Outpatient R WADSWORTH, [facility] 378 [id number] Univers 08:30:00 08:30:00 LEELEE ity of [facility] 2019-09-08 2019-09-08 Orders Doctor 1.2.840.0 [id number] Univers 00:00:00 00:00:00 Only Unassigned, 41633.1.1 ity of [place] 3.104.2.7 [place] .3.615894 Medica l .8 [place] 2019-09-08 2019-09-08 Travel 1.2.840.1 1.2.142.167 0734 [id number] Univers 00:00:00 00:00:00 38571.1.1 350.1.13.10 ity of 3.104.2.[place].698 [place] .[place].3525[place] 084.8 Med[facility] l .8 [place] 2019-09-07 2019-09-07 Outpatient R WADSWORTH, [facility] 007 [id number] Univers 13:45:00 13:45:00 LEELEE ity of [facility] 2019-09-06 2019-09-06 Outpatient R RAMON, [facility] [id number] Univers 15:15:00 15:15:00 MARKUS ity of [facility] 2019-09-04 2019-09-04 Telephone Wadsworth, 1.2.840.8 [id number] Univers 00:00:00 00:00:00 Leelee 20993.1.1 ity of 3.104.2.7 [place] .3.890803 Medica l .8 [place] 2019-08-31 2019-08-31 Routine Wadsworth, 1.2.840.3 [id number] Univers 09:08:56 10:03:21 Leelee 81012.1.1 ity of Visit 3.104.2.7 [place] .3.132491 Medica l .8 [place] 2019-08-31 2019-08-31 Outpatient R WADSWORTH, [facility] 337 [id number] Univers 08:30:00 08:30:00 LEELEE ity of [facility] 2019-08-31 2019-08-31 Telephone Wadsworth, 1.2.840.7 [id number] Univers 00:00:00 00:00:00 Leelee 82420.1.1 ity of 3.104.2.7 [place] .3.439200 Medica l .8 [facility] 2019-08-21 2019-08-22 Hospital [place], 1.2.840.4 [id number] Univers 06:14:00 16:00:00 Encounter Kayli Mckeon 94467.1.1 it y of 3.104.2.7 [place] .3.332102 Medica l .8 [facility] 2019-08-21 2019-08-21 Anesthesia Spike Lopes 1.2.840.1 [id number] Univers 18:39:00 19:35:00 Event Spike Wilkins 58652.1.1 ity of 3.104.2.7 [place] .3.655948 Medica l .8 [facility] 2019-08-21 2019-08-21 Surgery [place], 1.2.840.7 [id number] Univers 18:15:00 19:35:00 Leelee 16881.1.1 ity of 3.104.2.7 [place] .3.236643 Medica l .8 [facility] 2019-08-21 2019-08-21 Anesthesia Yasmany Holder 1.2.840.1 10 [id number] Univers 12:05:00 15:00:00 Event José Luis Chapman 19705.1.1 ity of 3.104.2.7 [place] .3.940704 Medica l .8 [facility] 2019-08-21 2019-08-21 Travel 1.2.840.1 1.2.916.994 [id number] [id number] Univers 00:00:00 00:00:00 71777.1.1 350.1.13.10 ity of 3.104.2.7 [place].3.698 [place] .3.156[place] 084.8 Med[facility] .8 [place] 2019-08-10 2019-08-17 Routine Wadsworth, 1.2.840.6 [id number] Univers 12:57:36 17:03:23 Leelee 39991.1.1 ity of Visit 3.104.2.7 [place] .3.249106 Med[facility] .[facility] [place] 2019-08-17 2019-08-17 Routine Wadsworth, 1.2.840.0 [id number] Univers 14:00:43 14:41:36 Leelee 39255.1.1 ity of Visit 3.104.2.7 [place] .3.299071 Med[facility] .[facility] [place] 2019-08-17 2019-08-17 [id number] Univers 14:00:00 14:00:00 LEELEE ity [facility] [place] 2019-08-17 2019-08-17 Travel 1.2.840.1 1.2.625.690 [id number] [id number] Univers 00:00:00 00:00:00 70241.1.1 350.1.13.10 ity of 3.104.2.7 [place].3.698 [place] .3.6449[place] 084.8 [facility] l .8 [place] 2019-08-10 2019-08-10 [id number] [id number] Univers 13:00:00 13:00:00 LEELEE ity of [facility] 2019-08-07 2019-08-07 [facility] [id number] Univers 09:30:00 09:30:00 MENDENHALL ity [facility] [place] 2019-08-04 2019-08-04 Patient [facility] 1.2.840.114 [id number] Univers 00:00:00 00:00:00 Secure Msg Leelee Frazierton 350.1.13.10 [place] [id number] Nm dical nal 134 [facility] 2019-08-03 2019-08-03 Routine Ermelinda, 1.2.840.8 [id number] Univers 07:53:27 17:32:17 Leelee 92775.1.1 ity of Visit 3.104.2.7 [place] .3.153178 Med[facility] l .[facility] [place] 2019-08-03 2019-08-03 Electroneurodiagnostic Technician Leelee Wadsworth 1.2.840.1 1023 [id number] Univers 10:14:22 10:29:22 Visit 2, Adc Lab 11729.1.1 i ty of 3.104.2.7 [place] .3.495912 Med[facility] l .[facility] [place] 2019-08-03 2019-08-03 Outpatient R ERMELINDA, [facility] 686 [id number] Univers 09:30:00 09:30:00 LEELEE ity of [facility] 2019-08-03 2019-08-03 Orders Doctor 1.2.840.6 [id number] Univers 00:00:00 00:00:00 Only Unassigned, 28781.1.1 ity of [place] 3.104.2.7 [place] .3.424782 Med[facility] .[facility] [place] 2019-08-02 2019-08-02 Outpatient R RAMON, [facility] [id number] Univers 14:30:00 14:30:00 MARKUS ity of [facility] 2019-08-01 2019-08-01 Electroneurodiagnostic Technician Malissa, 1.2.840.6 [id number] Univers 10:42:29 11:27:29 Visit Prem R 77394.1.1 ity of 3.104.2.7 [place] .3.494231 Med[facility] l .8 [place] 2019-08-01 2019-08-01 Outpatient P [facility] [id number] Univers 10:30:00 10:30:00 ity of [facility] 2019-08-01 2019-08-01 Case Rosalina Warner 1.2.840.1 [id number] Univers 00:00:00 00:00:00 Management 46985.1.1 i ty of 3.104.2.7 [place] .3.787824 Med[facility] .[facility] [place] 2019-07-27 2019-07-27 Patient Wadsworth, [facility] 1.2.840.114 [id number] Univers 00:00:00 00:00:00 Secure Msg Leelee Pérez 350.1.13.10 ity of [place] 4.2.7.2.686 Sirisha Sandoval [id number] Nm dical nal 134 [facility] 2019-07-27 2019-07-27 Telephone Wadsworth, 1.2.840.9 [id number] Univers 00:00:00 00:00:00 Leelee 56872.1.1 ity of 3.104.2.7 [place] .3.369313 Med[facility] l .8 [place] 2019-07-24 2019-07-24 Telephone Wadsworth, 1.2.840.7 [id number] Univers 00:00:00 00:00:00 Leelee 57098.1.1 ity of 3.104.2.7 [place] .3.525401 Med[facility] .8 [place] 2019-07-21 2019-07-21 Telephone Wadsworth, 1.2.840.2 [id number] Univers 00:00:00 00:00:00 Leelee 03167.1.1 ity of 3.104.2.7 [place] .3.594720 Med[facility] l .8 [place] 2019-07-20 2019-07-20 Routine Wadsworth, 1.2.840.2 [id number] Univers 08:43:30 10:05:55 Leelee 85688.1.1 ity of Visit 3.104.2.7 [place] .3.398734 Medica l .8 [place] 2019-07-20 2019-07-20 Outpatient R WADSWORTH, [facility] 979 [id number] Univers 08:45:00 08:45:00 LEELEE ity of [facility] 2019-07-20 2019-07-20 Orders Doctor 1.2.840.9 [id number] Univers 00:00:00 00:00:00 Only Unassigned, 76492.1.1 ity of [place] 3.104.2.7 [place] .3.361014 Med[facility] l .8 [place] 2019-07-19 2019-07-19 Telephone Wadsworth, 1.2.840.4 [id number] Univers 00:00:00 00:00:00 Leelee 65408.1.1 ity of 3.104.2.7 [place] .3.908667 Med[facility] l .8 [place] 2019-07-10 2019-07-10 Electroneurodiagnostic Technician Nilesh Ramírez Cyndi 1.2.840.2 [id number] Univers 10:35:42 11:18:43 Visit Prem Leonardo R 19453.1.1 ity of 3.104.2.7 [place] .3.993779 Med[facility] l .8 [place] 2019-07-10 2019-07-10 [facility] [id number] Univers 10:30:00 10:30:00 MENDENHALL ity [facility] [place] 2019-07-10 2019-07-10 Telephone Wadsworth, 1.2.840.4 [id number] Univers 00:00:00 00:00:00 Leelee 91086.1.1 ity of 3.104.2.7 [place] .3.283339 Med[facility] l .8 [place] 2019-07-06 2019-07-06 Routine Wadsworth, 1.2.840.8 [id number] Univers 13:11:15 13:59:12 Leelee 16088.1.1 ity of Visit 3.104.2.7 [place] .3.539168 Med[facility] .[facility] [place] 2019-07-06 2019-07-06 [facility] [id number] Univers 13:15:00 13:15:00 LEELEE ity of [facility] 2019-07-06 2019-07-06 Orders Doctor 1.2.840.8 [id number] Univers 00:00:00 00:00:00 Only Unassigned, 59790.1.1 ity of [place] 3.104.2.7 [place] .3.762881 Med[facility] l .8 [place] 2019-07-03 2019-07-03 Telephone Wadsworth, 1.2.840.7 [id number] Univers 00:00:00 00:00:00 Leelee 54094.1.1 ity of 3.104.2.7 [place] .3.145948 Medica l .8 [place] 2019-06-27 2019-06-27 Krissy ELIAS [facility] [id number] Univers 11:15:00 11:15:00 RUBIN ity of [facility] 2019-06-13 2019-06-13 Refhardy Hwang, 1.2.840.5 [id number] Univers 00:00:00 00:00:00 Melissa 49722.1.1 ity of 3.104.2.7 [place] .3.037854 Med[facility] l .8 [place] 2019-06-12 2019-06-12 Electroneurodiagnostic Technician Nilesh Ramírez 1.2.840.7 [id number] Univers 10:35:51 11:04:41 Visit Sonia Portillo 10689.1.1 ity of 3.104.2.7 [place] .3.601453 Medica l .8 [place] 2019-06-10 2019-06-10 Telephone Wadsworth, 1.2.840.6 [id number] Univers 00:00:00 00:00:00 Leelee 73439.1.1 ity of 3.104.2.7 [place] .3.184947 Medica l .8 [place] 2019-06-09 2019-06-09 Routine Wadsworth, 1.2.840.9 [id number] Univers 08:50:40 10:51:19 Leelee 83801.1.1 ity of Visit 3.104.2.7 [place] .3.248286 Med[facility] l .8 [place] 2019-06-09 2019-06-09 Electroneurodiagnostic Technician Leelee Wadsworth 1.2.840.1 1023 [id number] Univers 09:52:31 10:07:31 Visit [facility] 61311.1.1 ity of 3.104.2.7 [place] .3.641145 Medica l .8 [place] 2019-06-09 2019-06-09 Orders Doctor 1.2.840.5 [id number] Univers 00:00:00 00:00:00 Only Unassigned, 42357.1.1 ity of [place] 3.104.2.7 [place] .3.719577 Med[facility] l .8 [place] 2019-05-15 2019-05-15 Electroneurodiagnostic Technician Desiree, 1.2.840.7 [id number] Univers 09:31:53 10:01:53 Visit Nilesh Hanna 62713.1.1 ity of 3.104.2.7 [place] .3.265475 Medica l .8 [place] 2019-05-11 2019-05-11 Routine Wadsworth, 1.2.840.1 [id number] [facility] 08:29:58 09:39:30 Leelee 50846.1.1 ity of Visit 3.104.2.7 [place] .3.160605 Medica l .8 [place] 2019-02-07 2019-02-07 Routine Jada, 1.2.840.1 [id number] Univers 09:15:41 10:08:21 Rubin 55542.1.1 ity of Visit 3.104.2.7 [place] .3.070533 Med[facility] l .8 [place] 2019-02-07 2019-02-07 Telephone Wadsworth, 1.2.840.1 [id number] Univers 00:00:00 00:00:00 Leelee 44948.1.1 ity of 3.104.2.7 [place] .3.361904 Med[facility] l .8 [place] 2019-02-02 2019-02-02 Nurse Leelee Wadsworth 1.2.840.1 [id number] Univers 08:52:25 10:51:58 Visit Nurse, [facility] 77190.1.1 ity of 3.104.2.7 [place] .3.168508 Medica l .8 [place] 2019-02-02 2019-02-02 Telephone Wadsworth, 1.2.840.3 [id number] Univers 00:00:00 00:00:00 Leelee 79172.1.1 ity of 3.104.2.7 [place] .3.231075 Med[facility] l .8 [place] 2019-01-30 2019-01-30 Routine Melissa Hwang 1.2.840.1 [id number] Univers 14:05:18 14:57:54 [facility] 74786.1.1 ity of Visit 3.104.2.7 [place] .3.323666 Medica l .8 [facility] 2019-01-27 2019-01-27 Orders Doctor 1.2.840.1 [id number] [facility] Univers 00:00:00 00:00:00 Only Unassigned, 61997.1.1 ity of [place] 3.104.2.7 [place] .3.786275 Medica l .8 [facility] 2019-01-23 2019-01-23 Telephone Wadsworth, 1.2.840.4 [id number] Univers 00:00:00 00:00:00 Leelee 95059.1.1 ity of 3.104.2.7 [place] .3.095274 Medica l .8 [facility] 2019-01-19 2019-01-20 Routine Wadsworth, 1.2.840.4 [id number] Univers 08:33:37 16:03:13 Leelee 32896.1.1 ity of Visit 3.104.2.7 [place] .3.142899 Medica l .8 [facility] 2019-01-20 2019-01-20 Telephone Wadsworth, 1.2.840.8 [id number] Univers 00:00:00 00:00:00 Leelee 06848.1.1 ity of 3.104.2.7 [place] .3.562919 Medica l .8 [facility] 2019-01-12 2019-01-12 Telephone Wadsworth, 1.2.840.7 [id number] Univers 00:00:00 00:00:00 Leelee 26047.1.1 ity of 3.104.2.7 [place] .3.581229 Medica l .8 [facility] 2019-01-10 2019-01-10 Telephone Wadsworth, 1.2.840.7 [id number] Univers 00:00:00 00:00:00 Leelee 86203.1.1 ity of 3.104.2.7 [place] .3.763721 [facility] .[facility] [place] 2019-01-06 2019-01-06 Telephone Ermelinda, 1.2.840.2 [id number] Univers 00:00:00 00:00:00 Leelee 20137.1.1 ity of 3.104.2.7 [place] .3.636997 Med[facility] l .[facility] [place] 2019-01-06 2019-01-06 Telephone Ermelinda, 1.2.840.5 [id number] Univers 00:00:00 00:00:00 Leelee 22897.1.1 ity of 3.104.2.7 [place] .3.295114 Med[facility] l .8 [place] 2018-12-29 2018-12-29 Electroneurodiagnostic Technician Leelee Wadsworth 1.2.840.1 [id number] Univers 09:33:56 09:48:56 Visit 2, Adc Lab 64773.1.1 i ty of 3.104.2.7 [place] .3.416621 Medica l .8 [place] 2018-12-29 2018-12-29 Initial Ermelinda, 1.2.840.5 [id number] Univers 08:07:10 09:24:31 Leelee 51043.1.1 ity of Visit 3.104.2.7 [place] .3.246774 Med[facility] l .8 [place] 2018-12-29 2018-12-29 Orders Doctor 1.2.840.0 [id number] Univers 00:00:00 00:00:00 Only Unassigned, 54646.1.1 ity of [place] 3.104.2.7 [place] .3.411262 Medica l .8 [place] 2018-09-14 2018-09-14 Out[facility] [id number] Common 10:01:00 10:01:00 t [facility] 2018-08-29 2018-08-29 [facility] [id number] Common 10:44:00 10:44:00 t [facility] 2018-07-28 2018-07-28 Out[facility] [id number] Common 10:00:00 10:00:00 t [facility] 2017-12-16 2017-12-16 [facility] [id number] Common 10:00:00 10:00:00 t [facility] 2017-10-05 2017-10-05 [facility] 14 [id number] Common 12:00:00 12:00:00 t [facility] 2017-09-29 2017-09-29 [facility] [id number] Common 11:00:00 11:00:00 t [facility] - [facility] Results Test Description Test Time Test Comments Results Result Comments Source TSH RECEPTOR ANTIBODY (TRAB) 2021-12-24 10:45:30 Test Item Value Reference Range Interpretation Comme nts TSH AB (test code = 5385-0) <0.80 See_Comment Performed By: [facility] [place] [address] [id number] Director: Satnam Hutton MD, PhD [Automated message] The system MDCapsule generated this result transmit rodrigo reference range: <=1.75 IU/L. Th e reference range was not used to int erpret this result as normal/abnormal . [facility] RECEPTOR ANTIBODY (TRAB)2021-12-24 10:45:30 Test Item Value Reference Range Interpretation Comments TSH AB (test code = <0.80 See_Comment Performe d By: BRIANValidus-IVC 5385-0) [address] [place], [place] [address]Oikfnqwugk Director: Satnam jackson MD, PhD [Automated mess age] The system which ge nerated this result transmit rodrigo reference range : <=1.75 IU/L. The refer ence range was not used to interpret this result as normal/abnormal . [facility] RECEPTOR ANTIBODY (TRAB)2021-12-24 10:45:30 Test Item Value Reference Range Interpretation Comments TSH AB (test code = <0.80 See_Comment Performe d By: [facility] 5385-0) [address] [address]Lviwzwmuqs Director: Satnam jackson MD, PhD [Automated mess age] The system which ge nerated this result transmit rodrigo reference range : <=1.75 IU/L. The refer ence range was not used to interpret this result as normal/abnormal . [facility] RECEPTOR ANTIBODY (TRAB)2021-12-24 10:45:30 Test Item Value Reference Range Interpretation Comments TSH AB (test code = <0.80 See_Comment Performe d By: [facility] 5385-0) [address] [address]Fxrrxbjlxs Director: Satnam jackson MD, PhD [Automated mess age] The system which ge nerated this result transmit rodrigo reference range : <=1.75 IU/L. The refer ence range was not used to interpret this result as normal/abnormal . [facility] RECEPTOR ANTIBODY (TRAB)2021-12-24 10:45:30 Test Item Value Reference Range Interpretation Comments TSH AB (test code = <0.80 See_Comment Performe d By: [facility] 5385-0) [address] [address]Aojoezpdvj Director: Satnam jackson MD, PhD [Automated mess age] The system which ge nerated this result transmit rodrigo reference range : <=1.75 IU/L. The refer ence range was not used to interpret this result as normal/abnormal . [facility]29 Test Item Value Reference Range Interpretation Comments T3 (test code = 2768866767) 396.0 ng/dL 97-170 H Lab Interpretation (test code = Abnormal 91738-9) [facility] 06:43:29 Test Item Value Reference Range Interpretation Comments T3 (test code = 8429947524) 396.0 ng/dL 97-170 H Lab Interpretation (test code = Abnormal 40609-6) [facility] 06:43:29 Test Item Value Reference Range Interpretation Comments T3 (test code = 7201485561) 396.0 ng/dL 97-170 H Lab Interpretation (test code = Abnormal 79227-3) [facility]20 06:43:29 Test Item Value Reference Range Interpretation Comments T3 (test code = 2309383824) 396.0 ng/dL 97.0-170.0 H Lab Interpretation (test code = Abnormal 83473-8) [facility] 06:43:29 Test Item Value Reference Range Interpretation Comments T3 (test code = 9551754062) 396.0 ng/dL 97.0-170.0 H Lab Interpretation (test code = Abnormal 68921-6) [facility] [id number] 04:47:57 Test Item Value Reference Range Interpretation Comments TSH (test code = See_Comment L [Automated message] 7688388503) The system MDCapsule generated this result transmitted ref erence range: 0.45 - 4 .70 mIU/L. The refe rence range was not u sed to interpret this result as normal/abnor mal. Lab Interpretation (test Abnormal code = 05527-0) [facility] [id number] 04:47:57 Test Item Value Reference Range Interpretation Comments TSH (test code = See_Comment L [Automated message] 0127800563) The system MDCapsule generated this result transmitted ref erence range: 0.45 - 4 .70 mIU/L. The refe rence range was not u sed to interpret this result as normal/abnor mal. Lab Interpretation (test Abnormal code = 42356-6) [facility] [id number] 04:47:57 Test Item Value Reference Range Interpretation Comments TSH (test code = See_Comment L [Automated message] 1915441537) The system MDCapsule generated this result transmitted ref erence range: 0.45 - 4 .70 mIU/L. The refe rence range was not u sed to interpret this result as normal/abnor mal. Lab Interpretation (test Abnormal code = 29849-3) [facility] [id number] 04:47:57 Test Item Value Reference Range Interpretation Comments TSH (test code = See_Comment L [Automated message] 3499859239) The system MDCapsule generated this result transmitted ref erence range: 0.45 - 4 .70 mIU/L. The refe rence range was not u sed to interpret this result as normal/abnor mal. Lab Interpretation (test Abnormal code = 28733-7) [facility] [id number] 04:47:57 Test Item Value Reference Range Interpretation Comments TSH (test code = See_Comment L [Automated message] 2848323863) The system MDCapsule generated this result transmitted ref erence range: 0.45 - 4 .70 mIU/L. The refe rence range was not u sed to interpret this result as normal/abnor mal. Lab Interpretation (test Abnormal code = 76721-9) [place] [id number] 04:33:57 Test Item Value Reference Range Interpretation Comments FREE T4 (test code = See_Comment H [Autom ated message] 5781898646) The system MDCapsule generated this result transmitted ref erence range: 0.78 - 2 .20 ng/dL:. The ref erence range was not u sed to interpret this result as normal/abnor mal. Lab Interpretation (test Abnormal code = 72553-5) [facility] [id number] 04:33:57 Test Item Value Reference Range Interpretation Comments FREE T4 (test code = See_Comment H [Autom ated message] 9601581158) The system MDCapsule generated this result transmitted ref erence range: 0.78 - 2 .20 ng/dL:. The ref erence range was not u sed to interpret this result as normal/abnor mal. Lab Interpretation (test Abnormal code = 99512-0) [facility] [id number] 04:33:57 Test Item Value Reference Range Interpretation Comments FREE T4 (test code = See_Comment H [Autom ated message] 1903111067) The system MDCapsule generated this result transmitted ref erence range: 0.78 - 2 .20 ng/dL:. The ref erence range was not u sed to interpret this result as normal/abnor mal. Lab Interpretation (test Abnormal code = 94800-0) [facility] 04:33:57 Test Item Value Reference Range Interpretation Comments FREE T4 (test code = See_Comment H [Autom ated message] [id number]) The system MDCapsule generated this result transmitted ref erence range: 0.78 - 2 .20 ng/dL:. The ref erence range was not u sed to interpret this result as normal/abnor mal. Lab Interpretation (test Abnormal code = 43995-7) [facility] 04:33:57 Test Item Value Reference Range Interpretation Comments FREE T4 (test code = See_Comment H [Autom ated message] 4924288311) The system MDCapsule generated this result transmitted ref erence range: 0.78 - 2 .20 ng/dL:. The ref erence range was not u sed to interpret this result as normal/abnor mal. Lab Interpretation (test Abnormal code = 27490-6) [facility]2021-12-20 04:20:48 Test Item Value Reference Range Interpretation Comments HGB A1C (test code = 5.4 % 4-5.7 4548-4) BONNIE (test code = BONNIE) Reference RangesNormal: <5.7%Prediabetes: 5.7 - 6.4%Diabetes: > 6.5% Lab Interpretation (test Normal code = 38714-9) [facility]21[facility]12-20 04:20:48 Test Item Value Reference Range Interpretation Comments HGB A1C (test code = 5.4 % 4-5.7 4548-4) BONNIE (test code = BONNIE) Reference RangesNormal: <5.7%Prediabetes: 5.7 - 6.4%Diabetes: > 6.5% Lab Interpretation (test Normal code = 06484-4) [facility]21[facility]12-20 04:20:48 Test Item Value Reference Range Interpretation Comments HGB A1C (test code = 5.4 % 4-5.7 4548-4) BONNIE (test code = BONNIE) Reference RangesNormal: <5.7%Prediabetes: 5.7 - 6.4%Diabetes: > 6.5% Lab Interpretation (test Normal code = 91899-3) [facility]21[facility]-20 04:20:48 Test Item Value Reference Range Interpretation Comments HGB A1C (test code = 5.4 % 4.0-5.7 4548-4) BONNIE (test code = BONNIE) Reference RangesNormal: <5.7%Prediabetes: 5.7 - 6.4%Diabetes: > 6.5% Lab Interpretation (test Normal code = 16422-0) [facility]20 04:20:48 Test Item Value Reference Range Interpretation Comments HGB A1C (test code = 5.4 % 4.0-5.7 4548-4) BONNIE (test code = BONNIE) Reference RangesNormal: <5.7%Prediabetes: 5.7 - 6.4%Diabetes: > 6.5% Lab Interpretation (test Normal code = 89864-3) [facility] (12891[facility]2021-12-20 04:19:52 Test Item Value Reference Range Interpretation Comments NA (test code = 138 mmol/L 135-145 [id number]) K (test code = 4.3 mmol/L 3.5-5 0800219958) CL (test code = 106 mmol/L 98-108 [id number]) CO2 TOTAL (test code = 26 mmol/L 23-31 6815123468) AGAP (test code = 2-16 0980783150) BUN (test code = 5 mg/dL 7-23 L [id number]) GLUCOSE (test code = 103 mg/dL 70-110 5456563525) CREATININE (test code = 0.40 mg/dL 0.5-1.04 L 3075284498) TOTAL BILI (test code = 0.6 mg/dL 0.1-1.9 9545863245) CALCIUM (test code = 9.0 mg/dL 8.6-10.6 6061156938) T PROTEIN (test code = 6.3 g/dL 6.3-8.2 7565763617) ALBUMIN (test code = 4.0 g/dL 3.5-5 4660691412) ALK PHOS (test code = 101 U/L 34-122 0256636333) ALTv (test code = 35 U/L 5-35 1742-6) AST(SGOT) (test code = 33 U/L 13-40 5743299810) eGFR (test code = mL/min/1.73m2 8245851126) BONNIE (test code = BONNIE) Association of [...] tests). Lab Interpretation Abnormal (test code = 58116-0) [facility]. METABOLIC PANEL ([id number])2021-12-20 04:19:52 Test Item Value Reference Range Interpretation Comments NA (test code = 138 mmol/L 135-145 8851406862) K (test code = 4.3 mmol/L 3.5-5 9629389555) CL (test code = 106 mmol/L 98-108 2697561544) CO2 TOTAL (test code = 26 mmol/L 23-31 4730711523) AGAP (test code = 2-16 1954932098) BUN (test code = 5 mg/dL 7-23 L 4809834834) GLUCOSE (test code = 103 mg/dL 70-110 1745959171) CREATININE (test code = 0.40 mg/dL 0.5-1.04 L 3357509646) TOTAL BILI (test code = 0.6 mg/dL 0.1-1.7 8093626589) CALCIUM (test code = 9.0 mg/dL 8.6-10.6 1770587642) T PROTEIN (test code = 6.3 g/dL 6.3-8.2 5527351487) ALBUMIN (test code = 4.0 g/dL 3.5-5 8842076413) ALK PHOS (test code = 101 U/L 34-122 2182166093) ALTv (test code = 35 U/L 5-35 2-6) AST(SGOT) (test code = 33 U/L 13-40 7137060932) eGFR (test code = mL/min/1.73m2 9454199831) BONNIE (test code = BONNIE) Association of [...] tests). Lab Interpretation Abnormal (test code = 00675-3) [facility]. METABOLIC PANEL ([id number])2021-12-20 04:19:52 Test Item Value Reference Range Interpretation Comments NA (test code = 138 mmol/L 135-145 3901901445) K (test code = 4.3 mmol/L 3.5-5 6239292522) CL (test code = 106 mmol/L 98-108 5568166395) CO2 TOTAL (test code = 26 mmol/L 23-31 0578514102) AGAP (test code = 2-16 0358510397) BUN (test code = 5 mg/dL 7-23 L 2835172268) GLUCOSE (test code = 103 mg/dL 70-110 2662097886) CREATININE (test code = 0.40 mg/dL 0.5-1.04 L 2219661712) TOTAL BILI (test code = 0.6 mg/dL 0.1-1.8 1381495348) CALCIUM (test code = 9.0 mg/dL 8.6-10.6 1308739632) T PROTEIN (test code = 6.3 g/dL 6.3-8.2 8311741960) ALBUMIN (test code = 4.0 g/dL 3.5-5 0885338599) ALK PHOS (test code = 101 U/L 34-122 8811524655) ALTv (test code = 35 U/L 5-35 1742-6) AST(SGOT) (test code = 33 U/L 13-40 7425464382) eGFR (test code = mL/min/1.73m2 8343164014) BONNIE (test code = BONNIE) Association of [...] tests). Lab Interpretation Abnormal (test code = 64414-3) [facility]. METABOLIC PANEL ([id number])2021-12-20 04:19:52 Test Item Value Reference Range Interpretation Comments NA (test code = 138 mmol/L 135-145 9426931967) K (test code = 4.3 mmol/L 3.5-5.0 3638152938) CL (test code = 106 mmol/L 98-108 7456594689) CO2 TOTAL (test code = 26 mmol/L 23-31 4047607958) AGAP (test code = 2-16 1467012312) BUN (test code = 5 mg/dL 7-23 L 7610600582) GLUCOSE (test code = 103 mg/dL 70-110 0621300025) CREATININE (test code = 0.40 mg/dL 0.50-1.04 L 8710383448) TOTAL BILI (test code = 0.6 mg/dL 0.1-1.5 7061273604) CALCIUM (test code = 9.0 mg/dL 8.6-10.6 9216889547) T PROTEIN (test code = 6.3 g/dL 6.3-8.2 5476027128) ALBUMIN (test code = 4.0 g/dL 3.5-5.0 3544244747) ALK PHOS (test code = 101 U/L 34-122 0698954465) ALTv (test code = 35 U/L 5-35 2-6) AST(SGOT) (test code = 33 U/L 13-40 7578721175) eGFR (test code = mL/min/1.73m2 8871071391) BONNIE (test code = BONNIE) Association of [...] tests). Lab Interpretation Abnormal (test code = 87265-9) [facility]. METABOLIC PANEL ([id number])2021-12-20 04:19:52 Test Item Value Reference Range Interpretation Comments NA (test code = 138 mmol/L 135-145 9500100188) K (test code = 4.3 mmol/L 3.5-5.0 3415703691) CL (test code = 106 mmol/L 98-108 0820840910) CO2 TOTAL (test code = 26 mmol/L 23-31 1915429294) AGAP (test code = 2-16 3772813673) BUN (test code = 5 mg/dL 7-23 L 2944486735) GLUCOSE (test code = 103 mg/dL 70-110 5664928815) CREATININE (test code = 0.40 mg/dL 0.50-1.04 L 7669560076) TOTAL BILI (test code = 0.6 mg/dL 0.1-1.5 2670867645) CALCIUM (test code = 9.0 mg/dL 8.6-10.6 5848298345) T PROTEIN (test code = 6.3 g/dL 6.3-8.2 0777515064) ALBUMIN (test code = 4.0 g/dL 3.5-5.0 2031524720) ALK PHOS (test code = 101 U/L 34-122 5259264690) ALTv (test code = 35 U/L 5-35 2-6) AST(SGOT) (test code = 33 U/L 13-40 0286112603) eGFR (test code = mL/min/1.73m2 7518353931) BONNIE (test code = BONNIE) Association of [...] tests). Lab Interpretation Abnormal (test code = 02811-9) [facility] WITH [id number] 04:03:52 Test Item Value Reference Range Interpretation Comments WBC (test code = See_Comment [Automated 1190-2) message] The sy stem which generated this [...] (test code = 37.9 fL 39-49.9 L 25687-2) RDW-CV (test code = 13.0 % 12-15.5 788-0) PLT (test code = See_Comment [Automated 777-3) message] The sy stem which generated this result transmitted reference range : 166 - 358 10*3/ ?L. The reference r radha was not used to interpret this result as normal/abnormal . MPV (test code = 12.7 fL 9.5-12.9 68724-8) NRBC/100 WBC (test See_Comment [Automat ed code = 3240411605) message] The system which generated this result transmitted reference range : 0.0 - 10.0 /100 WBCs. The refer ence range was not u sed to interpret th is result as normal/abnormal . NRBC x10^3 (test code See_Comment [Auto mated = 0918349820) message] The s ystem which generated this result transmitted reference range : 10*3/?L. The reference range was not used to interpret this result as normal/abnormal . GRAN MAT (NEUT) % 51.4 % (test code = 770-8) IMM GRAN % (test code 0.20 % = 4953880170) LYMPH % (test code = 39.7 % 736-9) MONO % (test code = 5.5 % 5905-5) EOS % (test code = 2.7 % 713-8) BASO % (test code = 0.5 % 706-2) GRAN MAT x10^3(ANC) 4.34 10*3/uL 1.88-7.09 (test code = 7007642889) IMM GRAN x10^3 (test 0-0.06 code = 8653376075) LYMPH x10^3 (test code 3.35 10*3/uL 1.32-3.29 H = 731-0) MONO x10^3 (test code 0.46 10*3/uL 0.33-0.92 = 742-7) EOS x10^3 (test code = 0.23 10*3/uL 0.03-0.39 711-2) BASO x10^3 (test code 0.04 10*3/uL 0.01-0.07 = 704-7) Lab Interpretation Abnormal (test code = 88665-4) [facility] WITH [id number] 04:03:52 Test Item Value Reference Range Interpretation Comments WBC (test code = See_Comment [Automated 9590-2) message] The sy stem which generated this result transmitted reference range : 4.30 - 11.10 10*3/?L. The reference range was not used to interpret this result as normal/abnormal . RBC (test code = See_Comment [Automated 729-8) message] The sy stem which generated this [...] (test code = 37.9 fL 39-49.9 L 65439-1) RDW-CV (test code = 13.0 % 12-15.5 788-0) PLT (test code = See_Comment [Automated 777-3) message] The sy stem which generated this result transmitted reference range : 166 - 358 10*3/ ?L. The reference r radha was not used to interpret this result as normal/abnormal . MPV (test code = 12.7 fL 9.5-12.9 23765-7) NRBC/100 WBC (test See_Comment [Automat ed code = 6065262154) message] The system which generated this result transmitted reference range : 0.0 - 10.0 /100 WBCs. The refer ence range was not u sed to interpret th is result as normal/abnormal . NRBC x10^3 (test code See_Comment [Auto mated = 2862348821) message] The s ystem which generated this result transmitted reference range : 10*3/?L. The reference range was not used to interpret this result as normal/abnormal . GRAN MAT (NEUT) % 51.4 % (test code = 770-8) IMM GRAN % (test code 0.20 % = 8380240339) LYMPH % (test code = 39.7 % 736-9) MONO % (test code = 5.5 % 5905-5) EOS % (test code = 2.7 % 713-8) BASO % (test code = 0.5 % 706-2) GRAN MAT x10^3(ANC) 4.34 10*3/uL 1.88-7.09 (test code = 1678170756) IMM GRAN x10^3 (test 0-0.06 code = 0051569336) LYMPH x10^3 (test code 3.35 10*3/uL 1.32-3.29 H = 731-0) MONO x10^3 (test code 0.46 10*3/uL 0.33-0.92 = 742-7) EOS x10^3 (test code = 0.23 10*3/uL 0.03-0.39 711-2) BASO x10^3 (test code 0.04 10*3/uL 0.01-0.07 = 704-7) Lab Interpretation Abnormal (test code = 97131-6) [facility] WITH [id number] 04:03:52 Test Item Value Reference Range Interpretation Comments WBC (test code = See_Comment [Automated 0990-2) message] The sy stem which generated this result transmitted reference range : 4.30 - 11.10 10*3/?L. The reference range was not used to interpret this result as normal/abnormal . RBC (test code = See_Comment [Automated 209-8) message] The sy stem which generated this [...] (test code = 37.9 fL 39-49.9 L 45405-7) RDW-CV (test code = 13.0 % 12-15.5 788-0) PLT (test code = See_Comment [Automated 777-3) message] The sy stem which generated this result transmitted reference range : 166 - 358 10*3/ ?L. The reference r radha was not used to interpret this result as normal/abnormal . MPV (test code = 12.7 fL 9.5-12.9 56143-0) NRBC/100 WBC (test See_Comment [Automat ed code = 0135583595) message] The system which generated this result transmitted reference range : 0.0 - 10.0 /100 WBCs. The refer ence range was not u sed to interpret th is result as normal/abnormal . NRBC x10^3 (test code See_Comment [Auto mated = 6688932553) message] The s ystem which generated this result transmitted reference range : 10*3/?L. The reference range was not used to interpret this result as normal/abnormal . GRAN MAT (NEUT) % 51.4 % (test code = 770-8) IMM GRAN % (test code 0.20 % = 6358515388) LYMPH % (test code = 39.7 % 736-9) MONO % (test code = 5.5 % 5905-5) EOS % (test code = 2.7 % 713-8) BASO % (test code = 0.5 % 706-2) GRAN MAT x10^3(ANC) 4.34 10*3/uL 1.88-7.09 (test code = 6790428499) IMM GRAN x10^3 (test 0-0.06 code = 7805161048) LYMPH x10^3 (test code 3.35 10*3/uL 1.32-3.29 H = 731-0) MONO x10^3 (test code 0.46 10*3/uL 0.33-0.92 = 742-7) EOS x10^3 (test code = 0.23 10*3/uL 0.03-0.39 711-2) BASO x10^3 (test code 0.04 10*3/uL 0.01-0.07 = 704-7) Lab Interpretation Abnormal (test code = 00894-5) [facility] WITH [id number] 04:03:52 Test Item Value Reference Range Interpretation Comments WBC (test code = See_Comment [Automated 4790-2) message] The sy stem which generated this [...] (test code = 37.9 fL 39.0-49.9 L 77943-9) RDW-CV (test code = 13.0 % 12.0-15.5 788-0) PLT (test code = See_Comment [Automated 777-3) message] The sy stem which generated this result transmitted reference range : 166 - 358 10*3/ ?L. The reference r radha was not used to interpret this result as normal/abnormal . MPV (test code = 12.7 fL 9.5-12.9 59835-7) NRBC/100 WBC (test See_Comment [Automat ed code = 1003844072) message] The system which generated this result transmitted reference range : 0.0 - 10.0 /100 WBCs. The refer ence range was not u sed to interpret th is result as normal/abnormal . NRBC x10^3 (test code See_Comment [Auto mated = 6024219102) message] The s ystem which generated this result transmitted reference range : 10*3/?L. The reference range was not used to interpret this result as normal/abnormal . GRAN MAT (NEUT) % 51.4 % (test code = 770-8) IMM GRAN % (test code 0.20 % = 9504666439) LYMPH % (test code = 39.7 % 736-9) MONO % (test code = 5.5 % 5905-5) EOS % (test code = 2.7 % 713-8) BASO % (test code = 0.5 % 706-2) GRAN MAT x10^3(ANC) 4.34 10*3/uL 1.88-7.09 (test code = 8789275014) IMM GRAN x10^3 (test 0.00-0.06 code = 5603197151) LYMPH x10^3 (test code 3.35 10*3/uL 1.32-3.29 H = 731-0) MONO x10^3 (test code 0.46 10*3/uL 0.33-0.92 = 742-7) EOS x10^3 (test code = 0.23 10*3/uL 0.03-0.39 711-2) BASO x10^3 (test code 0.04 10*3/uL 0.01-0.07 = 704-7) Lab Interpretation Abnormal (test code = 58223-7) [facility] WITH [id number] 04:03:52 Test Item Value Reference Range Interpretation Comments WBC (test code = See_Comment [Automated 2325-2) message] The sy stem which generated this result transmitted reference range : 4.30 - 11.10 10*3/?L. The reference range was not used to interpret this result as normal/abnormal . RBC (test code = See_Comment [Automated 309-8) message] The sy stem which generated this [...] (test code = 37.9 fL 39.0-49.9 L 74389-0) RDW-CV (test code = 13.0 % 12.0-15.5 788-0) PLT (test code = See_Comment [Automated 067-3) message] The sy stem which generated this result transmitted reference range : 166 - 358 10*3/ ?L. The reference r radha was not used to interpret this result as normal/abnormal . MPV (test code = 12.7 fL 9.5-12.9 69389-7) NRBC/100 WBC (test See_Comment [Automat ed code = 6572292261) message] The system which generated this result transmitted reference range : 0.0 - 10.0 /100 WBCs. The refer ence range was not u sed to interpret th is result as normal/abnormal . NRBC x10^3 (test code See_Comment [Auto mated = 5455596360) message] The s ystem which generated this result transmitted reference range : 10*3/?L. The reference range was not used to interpret this result as normal/abnormal . GRAN MAT (NEUT) % 51.4 % (test code = 770-8) IMM GRAN % (test code 0.20 % = 0556377433) LYMPH % (test code = 39.7 % 736-9) MONO % (test code = 5.5 % 5905-5) EOS % (test code = 2.7 % 713-8) BASO % (test code = 0.5 % 706-2) GRAN MAT x10^3(ANC) 4.34 10*3/uL 1.88-7.09 (test code = 7018799821) IMM GRAN x10^3 (test 0.00-0.06 code = 7868107979) LYMPH x10^3 (test code 3.35 10*3/uL 1.32-3.29 H = 731-0) MONO x10^3 (test code 0.46 10*3/uL 0.33-0.92 = 742-7) EOS x10^3 (test code = 0.23 10*3/uL 0.03-0.39 711-2) BASO x10^3 (test code 0.04 10*3/uL 0.01-0.07 = 704-7) Lab Interpretation Abnormal (test code = 47360-4) [id number]:00 Test Item Value Reference Range Interpretation [...] di abetes in children. Ac cording to [place] [employer] (ADA)guidelines , hemoglobin A1c <7.0% represents optimalcontrol in non- di abetic patients. Differentmetric s may apply to specif ic patient populat ions. Standards of Me dical Care in Diabete s(ADA). ? [Automated me ssage] The system [employer] generated this result transmitted ref erence range: <5.7 % o f total Hgb. The refere nce range was not u sed to interpret this result as normal/abnor mal. BONNIE (test code = PERFORMED BY BONNIE) [facility]; [address] [place] [address]; GILMA GANDHI MD [facility], 3RD [id number] 09:00:00 Test Item Value Reference Range Interpretation Comments TSH, 3RD GENERATION-Q <0.01 mIU/L L ? (test code = 3016-3) ?Refere nce Range ?> or = 20 Years ?0.40-4.50 ? Ranges ?First trimester ? ?0.26-2.66 ?Second trimester ? 0.55-2.73 ?Third trimester ? ?0.43-2.91 BONNIE (test code = BONNIE) PERFORMED BY [facility]; [address] [place] [address]; GILMA GANDHI MD Lab Interpretation Abnormal (test code = 64050-4) [facility] (INCLUDES DIFF/PLT)-[id number] 09:00:00 Test Item Value Reference Range Interpretation [...] BONNIE (test code = BONNIE) PERFORMED BY [facility]; [address] [place] [address]; GILMA GANDHI MD Lab Interpretation Abnormal (test code = 90251-8) [facility]/EGFR-Q 2021-12-13 09:00:00 Test Item Value [...] = See_Comment [place] [address]) the CKD-EPI 202 1 equation. To calculate [...] CALCIUM-Q (test code 9.5 mg/dL 8.6-10.2 = 26608-8) PROTEIN, TOTAL-Q 6.7 g/dL 6.1-8.1 (test code = 2885-2) ALBUMIN-Q (test code 4 g/dL 3.6-5.1 = 1751-7) GLOBULIN-Q (test See_Comment [Automated message] code = 44316-1) The system w [facility] generated this result transmit rodrigo reference [...] 6768-6) AST-Q (test code = 12 U/L 03-01 1920-8) ALT-Q (test code = 11 U/L 6 1742-6) BONNIE (test code = PERFORMED BY BONNIE) [facility]; [address] [place] [address]; GILMA GANDHI MD Lab Interpretation Abnormal (test code = 29848-5) [facility] [id number] 09:00:00 Test Item Value Reference Range Interpretation [...] di abetes in children. Ac cording to [place] [employer] (ADA)guidelines , hemoglobin A1c <7.0% represents optimalcontrol in non- di abetic patients. Differentmetric s may apply to specif ic patient populat ions. Standards of Me dical Care in Diabete s(ADA). ? [Automated me ssage] The system [employer] generated this result transmitted ref erence range: <5.7 % o f total Hgb. The refere nce range was not u sed to interpret this result as normal/abnor mal. BONNIE (test code = PERFORMED BY BONNIE) [facility]; [address] [place] [address]; GILMA GANDHI MD [facility], 3RD [id number] 09:00:00 Test Item Value Reference Range Interpretation Comments TSH, 3RD GENERATION-Q <0.01 mIU/L L ? (test code = 3016-3) ?Refere nce Range ?> or = 20 Years ?0.40-4.50 ? Ranges ?First trimester ? ?0.26-2.66 ?Second trimester ? 0.55-2.73 ?Third trimester ? ?0.43-2.91 BONNIE (test code = BONNIE) PERFORMED BY [facility]; [address] [place] [address]; GILMA GANDHI MD Lab Interpretation Abnormal (test code = 81001-7) [facility] (INCLUDES DIFF/PLT)-[id number] 09:00:00 Test Item Value Reference Range Interpretation [...] BONNIE (test code = BONNIE) PERFORMED BY [facility]; [address] [place] [address]; GILMA GANDHI MD Lab Interpretation Abnormal (test code = 52797-7) [facility]AN[facility] W/EGFR-Q 2021-12-13 09:00:00 Test Item Value [...] = See_Comment [place] [address]) the CKD-EPI 202 1 equation. To calculate the n ew eGFR from a pre vious Creatinine or Cystatin Cresul t, go to [email or web address] [email or web address] ator [Automated mess age] The system Zevia[employer] EVRYTHNG generated this result transmit rodrigo reference range [...] CALCIUM-Q (test code 9.5 mg/dL 8.6-10.2 = 39315-5) PROTEIN, TOTAL-Q 6.7 g/dL 6.1-8.1 (test code = 2885-2) ALBUMIN-Q (test code 4 g/dL 3.6-5.1 = 1751-7) GLOBULIN-Q (test See_Comment [Automated message] code = 63775-3) The system w [facility] generated this result transmit rodrigo reference range : 1.9 - 3.7 g/dL (kyra c). The reference r radha was not used to interpret this result as normal/abnormal . ALBUMIN/GLOBULIN See_Comment [Automated message] RATIO-Q (test code = The [facility] tem which 1759-0) generated this result transmit [...] BONNIE (test code = PERFORMED BY BONNIE) [facility]; [address] [place] [address]; GILMA GANDHI MD Lab Interpretation Abnormal (test code = 15356-4) [facility] [id number] 09:00:00 Test Item Value Reference Range Interpretation [...] di abetes in children. Ac cording to [place] [employer] (ADA)guidelines , hemoglobin A1c <7.0% represents optimalcontrol in non- di abetic patients. Differentmetric s may apply to specif ic patient populat ions. Standards of Me dical Care in Diabete s(ADA). ? [Automated me ssage] The system [employer] generated this result transmitted ref erence range: <5.7 % o f total Hgb. The refere nce range was not u sed to interpret this result as normal/abnor mal. BONNIE (test code = PERFORMED BY BONNIE) [facility]; [address] [place] [address]; GILMA GANDHI MD [facility], 3RD [id number] 09:00:00 Test Item Value Reference Range Interpretation Comments TSH, 3RD GENERATION-Q <0.01 mIU/L L ? (test code = 3016-3) ?Refere nce Range ?> or = 20 Years ?0.40-4.50 ? Ranges ?First trimester ? ?0.26-2.66 ?Second trimester ? 0.55-2.73 ?Third trimester ? ?0.43-2.91 BONNIE (test code = BONNIE) PERFORMED BY [facility]; [address] [place] [address]; GILMA GANDHI MD Lab Interpretation Abnormal (test code = 15474-1) [facility] (INCLUDES DIFF/PLT)-[id number] 09:00:00 Test Item Value Reference Range Interpretation [...] BONNIE (test code = BONNIE) PERFORMED BY [facility]; [address] [place] [address]; GILMA GANDHI MD Lab Interpretation Abnormal (test code = 15351-8) [facility]AN[facility] W/EGFR-Q 2021-12-13 09:00:00 Test Item Value [...] = See_Comment [place] [address]) the CKD-EPI 202 1 equation. To calculate [...] m essage] RATIO-Q (test code = The [facility] tem which 3097-3) generated this result transmit [...] CALCIUM-Q (test code 9.5 mg/dL 8.6-10.2 = 28522-2) PROTEIN, TOTAL-Q 6.7 g/dL 6.1-8.1 (test code = 2885-2) ALBUMIN-Q (test code 4 g/dL 3.6-5.1 = 1751-7) GLOBULIN-Q (test See_Comment [Automated message] code = 86299-4) The system w [facility] generated this result transmit rodrigo reference range : 1.9 - 3.7 g/dL (kyra c). The reference r radha was not used to interpret this result as normal/abnormal . ALBUMIN/GLOBULIN See_Comment [Automated message] RATIO-Q (test code = The [facility] tem which 1759-0) generated this result transmit [...] BONNIE (test code = PERFORMED BY BONNIE) [facility]; [address] [place] [address]; GILMA GANDHI MD Lab Interpretation Abnormal (test code = 91021-4) [facility] [id number] 09:00:00 Test Item Value Reference Range Interpretation [...] di abetes in children. Ac cording to [place] [employer] (ADA)guidelines , hemoglobin A1c <7.0% represents optimalcontrol in non- di abetic patients. Differentmetric s may apply to specif ic patient populat ions. Standards of Me dical Care in Diabete s(ADA). ? [Automated me ssage] The system [employer] generated this result transmitted ref erence range: <5.7 % o f total Hgb. The refere nce range was not u sed to interpret this result as normal/abnor mal. BONNIE (test code = PERFORMED BY BONNIE) [facility]; [address] [place] [address]; GILMA GANDHI MD [facility], [facility] [id number] 09:00:00 Test Item Value Reference Range Interpretation Comments TSH, 3RD GENERATION-Q <0.01 mIU/L L ? (test code = 3016-3) ?Refere nce Range ?> or = 20 Years ?0.40-4.50 ? Ranges ?First trimester ? ?0.26-2.66 ?Second trimester ? 0.55-2.73 ?Third trimester ? ?0.43-2.91 BONNIE (test code = BONNIE) PERFORMED BY [facility]; [address] [place] [address]; GILMA GANDHI MD Lab Interpretation Abnormal (test code = 69012-3) [facility] (INCLUDES DIFF/PLT)-[id number] 09:00:00 Test Item Value Reference Range Interpretation [...] BONNIE (test code = BONNIE) PERFORMED BY [facility]; [address] [place] [address]; GILMA GANDHI MD Lab Interpretation Abnormal (test code = 39454-3) [facility] W/EGFR-Q 2021-12-13 09:00:00 Test Item Value [...] = See_Comment [place] [address]) the CKD-EPI 202 1 equation. To calculate the n ew eGFR from a pre vious Creatinine or Cystatin Cresul t, go to [email or web address] ator [Automated mess age] The system Zevia[employer] EVRYTHNG generated this result transmit rodrigo reference range [...] CALCIUM-Q (test code 9.5 mg/dL 8.6-10.2 = 83920-8) PROTEIN, TOTAL-Q 6.7 g/dL 6.1-8.1 (test code = 2885-2) ALBUMIN-Q (test code 4 g/dL 3.6-5.1 = 1751-7) GLOBULIN-Q (test See_Comment [Automated message] code = 20602-6) The system w [facility] generated this result transmit rodrigo reference range : 1.9 - 3.7 g/dL (kyra c). The reference r radha was not used to interpret this result as normal/abnormal . ALBUMIN/GLOBULIN See_Comment [Automated message] RATIO-Q (test code = The s tem which 1759-0) generated this result transmit rodrigo reference range : 1.0 - 2.5 (calc). T he reference range was not used to interpret this result as normal/abnormal . BILIRUBIN, TOTAL-Q 0.5 mg/dL 0.2-1.2 (test code = 1975-2) ALKALINE 88 U/L 31-125 PHOSPHATASE-Q (test code = 6768-6) AST-Q (test code = 12 U/L - 1920-8) ALT-Q (test code = 11 U/L - 1742-6) BONNIE (test code = PERFORMED BY BONNIE) [facility]; [address] [place] [address]; GILMA GANDHI MD Lab Interpretation Abnormal (test code = 78804-9) [id number] 09:00:00 Test Item Value Reference Range Interpretation [...] di abetes in children. Ac cording to [place] [employer] (ADA)guidelines , hemoglobin A1c <7.0% represents optimalcontrol in non- di abetic patients. Differentmetric s may apply to specif ic patient populat ions. Standards of Me dical [facility] in Diabete s(ADA). ? [Automated me ssage] The system MDC[employer] generated this result transmitted ref erence range: <5.7 % o f total Hgb. The refere nce range was not u sed to interpret this result as normal/abnor mal. BONNIE (test code = PERFORMED BY BONNIE) [facility]; [address] [place] [address]; GILMA GANDHI MD [facility] [id number] 09:00:00 Test Item Value Reference Range Interpretation Comments TSH, 3RD GENERATION-Q <0.01 mIU/L L ? (test code = 3016-3) ?Refere nce Range ?> or = 20 Years ?0.40-4.50 ? Ranges ?First trimester ? ?0.26-2.66 ?Second trimester ? 0.55-2.73 ?Third trimester ? ?0.43-2.91 BONNIE (test code = BONNIE) PERFORMED BY [facility]; [address] [place] [address]; GILMA GANDHI MD Lab Interpretation Abnormal (test code = 48816-7) [facility] (INCLUDES DIFF/PLT)-[id number] 09:00:00 Test Item Value Reference Range Interpretation [...] BONNIE (test code = BONNIE) PERFORMED BY [facility]; [address] [place] [id number]; GILMA GANDHI MD Lab Interpretation Abnormal (test code = 10663-3) [facility]AN[facility] W/EGFR-Q 2021-12-13 09:00:00 Test Item Value [...] = See_Comment [place] [address]) the CKD-EPI 202 1 equation. To calculate [...] m essage] RATIO-Q (test code = [facility] tem which 3097-3) generated this result transmit [...] CALCIUM-Q (test code 9.5 mg/dL 8.6-10.2 = 49025-7) PROTEIN, TOTAL-Q 6.7 g/dL 6.1-8.1 (test code = 2885-2) ALBUMIN-Q (test code 4 g/dL 3.6-5.1 = 1751-7) GLOBULIN-Q (test See_Comment [Automated message] code = 89923-0) The system w [facility] generated this result transmit rodrigo reference range : 1.9 - 3.7 g/dL (kyra c). The reference r radha was not used to interpret this result as normal/abnormal . ALBUMIN/GLOBULIN See_Comment [Automated message] RATIO-Q (test code = [facility] tem which 1759-0) generated this result transmit [...] BONNIE (test code = PERFORMED BY BONNIE) [facility]; [address] [place] [address]; GILMA GANDHI MD Lab Interpretation Abnormal (test code = 83601-6) [facility] URINALYSIS W SPECIFIC [id number] 19:22:00 Test Item Value Reference Range Interpretation [...] U APPEAR (test code = clear 3267) [facility] URINALYSIS W SPECIFIC [id number] 19:22:00 Test Item Value Reference Range Interpretation [...] U APPEAR (test code = clear 3267) [facility] URINALYSIS W SPECIFIC [id number] 19:22:00 Test Item Value Reference Range Interpretation [...] U APPEAR (test code = clear 3267) [facility] URINALYSIS W SPECIFIC [id number] 19:22:00 Test Item Value Reference Range Interpretation [...] U APPEAR (test code = clear 3267) [facility] URINALYSIS W SPECIFIC [id number] 19:22:00 Test Item Value Reference Range Interpretation [...] U APPEAR (test code = clear 3267) [facility]"
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
[2022-10-28 12:00] VITALS: BP 144/92; TEMP 97.7; O2SAT 100
== END 2022-10-28 11:51 | disposition home or self-care (01) ==
LOC: ER 10:19
DX: F33.8 Other recurrent depressive disorders (principal); F43.22 Adjustment disorder with anxiety; X78.1XXA Intentional self-harm by knife, initial encounter; F17.210 Nicotine dependence, cigarettes, uncomplicated; I10 Essential (primary) hypertension
CPT/HCPCS: 99284

== ENCOUNTER → 2023-05-27 | Emergency (ER) | payer OTHER ==
--- NOTE | 2023-05-27 22:05 | EDPHYS ---
Physician Documentation [facility] Name: Yuli Talbert Age: 38 yrs Sex: Female : 1985 Arrival Date: 05/27/2023 Time: 20:41 Bed 6 Private MD: ED Physician Santiago Spence HPI: 05/27 21:00 This 38 yrs old Female presents to ER via Law Enforcement with complaints of Psych cp Issue. 21:00 The patient presents to the emergency department with anxiety, over a relationship, has cp had a recent break-up, depression, over a relationship, has had a recent break-up. Past psychiatric history: Prior diagnosis: bipolar disorder, Psychiatric medications include: none. Patient is a 38-year-old female with past medical history significant for anxiety, bipolar disorder who presents to the emergency department via law enforcement. Patient was brought in and reports that she has had a recent separation from her fiance who also has there youngest child with them so patient has been unable to see or visit child. Patient reports that the child is at the home of her fiance's parents and so she is unable to visit due to a restraining order the child is well and there is no concern for the child safety. Patient denies any suicidal and/or homicidal ideation at this time. Historical: - Allergies: 21:25 NKDA; jw7 - Home Meds: 21:25 Abilify 15 mg oral tablet 1 tab daily [Active]; Pristiq 100 mg oral Tablet, Extended jw7 Release 24 hr 1 tab daily [Active]; clonazepam 0.5 mg oral tablet daily [Active]; propranolol 40 mg Oral tablet 1 tab 2 times per day [Active]; gabapentin 300 mg oral capsule 2 times per day [Active]; tizanidine 4 mg oral tablet [Active]; - PMHx: 21:25 Anxiety; Bipolar disorder; BORDERLINE PERSONALITY DISORDER; chronic back pain; jw7 Hypertensive disorder; Goiter (Hypertensive disorder); Traumatic Brain Injury (Hypertensive disorder); Herniated disc (Hypertensive disorder); Hyperthyroidism; ADHD; - PSHx: 21:25 Tubal Ligation; Right Knee Surgery; jw7 - Immunization history:: Adult Immunizations up to date, Client reports having NOT received the Covid vaccine. Last tetanus immunization: < 10 years ago Flu vaccine is up to date. - Social history:: Smoking status: Patient reports the use of cigarette tobacco products, smokes one-half pack cigarettes per day, Reported history of juuling and/or vaping. Patient uses street drugs, marijuana, Delta 8, Patient/guardian denies using alcohol. ROS: 21:05 Psych: Positive for anxiety, depression, cp 21:05 Constitutional: Negative for fever, cp 21:05 Cardiovascular: Negative for chest pain, 21:05 Respiratory: Negative for cough, shortness of breath, wheezing, 21:05 Neuro: Negative for altered mental status, 21:05 All other systems are negative, Exam: 21:10 Constitutional: The patient appears in no acute distress, alert, awake, cp non-diaphoretic, non-toxic, well developed, well nourished, anxious, tearful 21:10 Head/Face: Normocephalic, atraumatic. cp 21:10 Eyes: Periorbital structures: appear normal, Conjunctiva: normal, no exudate, no injection, Lids and lashes: appear normal, bilaterally, 21:10 ENT: External ear(s): are unremarkable, Nose: is normal, Mouth: Lips: moist, Oral mucosa: pink and intact, moist, Posterior pharynx: is normal, airway is patent, no erythema, no exudate, 21:10 Chest/axilla: Inspection: normal, 21:10 Cardiovascular: Rate: tachycardic, 21:10 Respiratory: the patient does not display signs of respiratory distress, Respirations: normal, no use of accessory muscles, no retractions, labored breathing, is not present, Breath sounds: are clear throughout, no decreased breath sounds, no stridor, no wheezing, 21:10 Abdomen/GI: Exam negative for discomfort, distension, guarding, Inspection: abdomen appears normal, 21:10 Neuro: Orientation: to person, place \T\ time. Mentation: is normal, Motor: moves all fours, strength is normal, Sensation: is normal, 21:10 Psych: Behavior/mood is cooperative, anxious, Affect is calm, Patient has no thoughts/intents to harm self or others. Judgement / Insight is normal. Delusions/hallucinations are not present. Vital Signs: 20:45 BP 157 / 90; Pulse 116; Resp 20 S; Temp 98.5(TE); Pulse Ox 99% on R/A; Weight 72.57 kg; jw7 Height 5 ft. 5 in. ; Pain 0/10; 23:00 BP 144 / 80; Pulse 115; Resp 16 S; Pulse Ox 98% on R/A; jw7 20:45 Body Mass Index 26.62 (72.57 kg, 165.1 cm) jw7 20:45 Pain Scale: Adult jw7 MDM: 20:52 Patient medically screened. cp 22:03 Data reviewed: vital signs, nurses notes, and as a result, I will discharge patient. cp 22:03 Counseling: I had a detailed discussion with the patient and/or guardian regarding the cp historical points, exam findings, and any diagnostic results supporting the discharge/admit diagnosis, the need for outpatient follow up, a psychiatrist, to return to the emergency department if symptoms worsen or persist or if there are any questions or concerns that arise at home. Administered Medications: No medications were administered Disposition Summary: 05/27/23 22:04 Discharge Ordered Notes: Location: Home cp Problem: new cp Symptoms: have improved cp Condition: Stable cp Diagnosis - Adjustment disorder with mixed anxiety and depressed mood cp Followup: cp - With: Private Physician - When: 1 - 2 days - Reason: Recheck today's complaints Discharge Instructions: - Discharge Summary Sheet cp - Adjustment Disorder, Adult cp - Managing Depression, Adult cp Forms: - Medication Reconciliation Form cp - Thank You Letter cp - Antibiotic Education cp - Prescription Opioid Use cp - Patient Portal Instructions cp - Leadership Thank You Letter cp Signatures: Amari Gallardo PA PA cp Ruthann Pantoja RN RN jw7 Corrections: (The following items were deleted from the chart) 05/28 21:23 21:20 This 38 yrs old Female presents to ER via Law Enforcement with complaints of cp Depression. cp
--- NOTE | 2023-05-27 22:05 | ER ---
Nurse's Notes [facility] Name: Yuli Talbert Age: 38 yrs Sex: Female : 1985 Arrival Date: 05/27/2023 Time: 20:41 Bed 6 Private MD: Diagnosis: Adjustment disorder with mixed anxiety and depressed mood Presentation: 05/27 20:45 Chief complaint: Patient states: "I'm really sad and feel like I've been abandoned jw7 because my fiance left me on Wednesday and took our daughter with him and now he won't call me or answer my phone calls. I just want my family back and I know I've been overreacting and very emotional. I've also been off my medication for 1 week". 21:00 Method Of Arrival: Law Enforcement: Rachana DELGADO jw7 21:00 Coronavirus screen: At this time, the client does not indicate any symptoms associated jw7 with coronavirus-19. Ebola Screen: No symptoms or risks identified at this time. Initial Sepsis Screen: Does the patient meet any 2 criteria? No. Patient's initial sepsis screen is negative. Does the patient have a suspected source of infection? No. Patient's initial sepsis screen is negative. Risk Assessment: Do you want to hurt yourself or someone else? Patient reports no desire to harm self or others. Onset of symptoms was May 25, 2023. 21:00 Acuity: CANDICE 3 jw7 Triage Assessment: 20:45 General: Appears in no apparent distress. comfortable, well groomed, well nourished, jw7 Behavior is cooperative, anxious, crying. Pain: Denies pain. EENT: No deficits noted. No signs and/or symptoms were reported regarding the EENT system. Neuro: Level of Consciousness is awake, alert, obeys commands, Oriented to person, place, time, situation. Cardiovascular: Capillary refill < 3 seconds Clubbing of nail beds is absent JVD is absent Patient's skin is warm and dry. Respiratory: Airway is patent Trachea midline Respiratory effort is even, unlabored, Respiratory pattern is regular, symmetrical. GI: Abdomen is round non-distended, Bowel sounds present X 4 quads. Abd is soft and non tender X 4 quads. : No deficits noted. No signs and/or symptoms were reported regarding the genitourinary system. Derm: Skin is intact, is healthy with good turgor, Skin is dry, Skin is normal, Skin temperature is warm. Musculoskeletal: Circulation, motion, and sensation intact. Range of motion: intact in all extremities. Historical: - Allergies: 21:25 NKDA; jw7 - Home Meds: 21:25 Abilify 15 mg oral tablet 1 tab daily [Active]; Pristiq 100 mg oral Tablet, Extended jw7 Release 24 hr 1 tab daily [Active]; clonazepam 0.5 mg oral tablet daily [Active]; propranolol 40 mg Oral tablet 1 tab 2 times per day [Active]; gabapentin 300 mg oral capsule 2 times per day [Active]; tizanidine 4 mg oral tablet [Active]; - PMHx: 21:25 Anxiety; Bipolar disorder; BORDERLINE PERSONALITY DISORDER; chronic back pain; jw7 Hypertensive disorder; Goiter (Hypertensive disorder); Traumatic Brain Injury (Hypertensive disorder); Herniated disc (Hypertensive disorder); Hyperthyroidism; ADHD; - PSHx: 21:25 Tubal Ligation; Right Knee Surgery; jw7 - Immunization history:: Adult Immunizations up to date, Client reports having NOT received the Covid vaccine. Last tetanus immunization: < 10 years ago Flu vaccine is up to date. - Social history:: Smoking status: Patient reports the use of cigarette tobacco products, smokes one-half pack cigarettes per day, Reported history of juuling and/or vaping. Patient uses street drugs, marijuana, Delta 8, Patient/guardian denies using alcohol. Screenin:24 [facility] ED Fall Risk Assessment (Adult) History of falling in the last 3 months, jw7 including since admission Yes- single mechanical fall (1 pt) Score/Fall Risk Level 0 - 2 = Low Risk Oriented to surroundings, Maintained a safe environment, Educated pt \\T\\ family on fall prevention, incl call for assistance when getting out of bed. Abuse screen: Denies threats or abuse. Denies injuries from another. Nutritional screening: No deficits noted. Tuberculosis screening: No symptoms or risk factors identified. Assessment: 20:45 General: See triage assessment. jw7 21:45 Reassessment: Patient appears in no apparent distress at this time. No changes from [facility] previously documented assessment. Patient and/or family updated on plan of care and expected duration. Pain level reassessed. Patient is alert, oriented x 3, equal unlabored respirations, skin warm/dry/pink. 22:45 Reassessment: Patient appears in no apparent distress at this time. Patient and/or jw7 family updated on plan of care and expected duration. Pain level reassessed. Patient is alert, oriented x 3, equal unlabored respirations, skin warm/dry/pink. Patient states feeling better. 23:08 General: Personal items returned to patient upon discharge from the ED. jw7 Vital Signs: 20:45 BP 157 / 90; Pulse 116; Resp 20 S; Temp 98.5(TE); Pulse Ox 99% on R/A; Weight 72.57 kg; jw7 Height 5 ft. 5 in. ; Pain 0/10; 23:00 BP 144 / 80; Pulse 115; Resp 16 S; Pulse Ox 98% on R/A; jw7 20:45 Body Mass Index 26.62 (72.57 kg, 165.1 cm) jw7 20:45 Pain Scale: Adult jw7 ED Course: 20:45 Patient arrived in ED. jb4 20:52 Amari Gallardo PA is PHCP. cp 20:52 Santiago Spence MD is Attending Physician. cp 21:00 Arm band placed on. jw7 21:22 Triage completed. jw7 21:24 Patient has correct armband on for positive identification. Placed in gown. Bed in low jw7 position. Patient is placed in psych hold. 23:07 Provided Education on: Discharge instructions, safety plan, and whom to call if/when jw7 this happens again. 23:07 No provider procedures requiring assistance completed. Patient did not have IV access jw7 during this emergency room visit. Administered Medications: No medications were administered Medication: 23:08 VIS not applicable for this client. jw7 Outcome: 22:04 Discharge ordered by . cp 23:07 Discharged to home ambulatory, jw7 23:07 Condition: stable 23:07 Discharge instructions given to patient, Instructed on discharge instructions, follow up and referral plans. Demonstrated understanding of instructions, follow-up care, 23:09 Patient left the ED. jw7 Signatures: Amari Gallardo PA PA cp Bryson, James, RN RN jb4 Ruthann Pantoja RN RN jw7 Corrections: (The following items were deleted from the chart) 23:06 21:00 Chief complaint: Patient states: "I'm really sad and feel like I've been jw7 abandoned because my fiance left me on Wednesday and took our daughter with him and now he won't call me or answer my phone calls. I just want my family back and I know I've been overreacting and very emotional. I've also been off my medication for 1 week" 7 : 21:00 BP 157 / 90; Pulse 116bpm; Resp 20bpm; Spontaneous; Pulse Ox 99% RA; Temp 98.5F jw7 Temporal; 72.57 kg; Height 5 ft. 5 in.; BMI: 26.6; Pain 0/10, Adult; jw7 23: 21:00 General: Appears in no apparent distress. comfortable, well groomed, well jw7 nourished, Behavior is cooperative, anxious, crying, jw7 : 21:00 Pain: Denies pain. jw7 jw7 : 21:00 EENT: No deficits noted. No signs and/or symptoms were reported regarding the [facility] EENT system. jw7 : 21:00 Neuro: Level of Consciousness is awake, alert, obeys commands, Oriented to [facility] person, place, time, situation, jw7 : 21:00 Cardiovascular: Capillary refill < 3 seconds Clubbing of nail beds is absent JVD jw7 is absent Patient's skin is warm and dry. jw7 : 21:00 Respiratory: Airway is patent Trachea midline Respiratory effort is even, jw7 unlabored, Respiratory pattern is regular, symmetrical, 7 : 21:00 GI: Abdomen is round non-distended, Bowel sounds present X 4 quads. Abd is soft jw and non tender X 4 quads. jw7 : 21:00 : No deficits noted. No signs and/or symptoms were reported regarding the [facility] genitourinary system. 7 : 21:00 Derm: Skin is intact, is healthy with good turgor, Skin is dry, Skin is normal, 7 Skin temperature is warm jw7 : 21:00 Musculoskeletal: Circulation, motion, and sensation intact. Range of motion: jw7 intact in all extremities, [facility]
[2023-05-28 00:56] VITALS: TEMP 98.5
[2023-05-28 01:11] VITALS: BP 144/80; O2SAT 98
== END ==
LOC: ER 20:41
DX: F43.23 Adjustment disorder with mixed anxiety and depressed mood (principal); F31.9 Bipolar disorder, unspecified; F60.3 Borderline personality disorder; I10 Essential (primary) hypertension; E05.90 Thyrotoxicosis, unspecified without thyrotoxic crisis or storm; F12.90 Cannabis use, unspecified, uncomplicated; F17.210 Nicotine dependence, cigarettes, uncomplicated; Z79.899 Other long term (current) drug therapy
CPT/HCPCS: 99282

== ENCOUNTER → 2023-06-24 | Emergency (ER) | payer OTHER ==
[~2023-06-24] MED LIST: NICOTINE 21 MG/PAT TD ONE
[2023-06-24 09:55] LABS: Absolute Lymphocytes (CBC) 1.9 K/uL (0.7-4.9); Hematocrit 38.4 % (36.0-45.0); Lymphocytes % 23.7 % (15.3-44.8); MCV 77.4 fL (80-100); MPV 8.1 fL (7.6-11.3); Platelets 273 thou/uL (152-406); RBC Red Blood Cell Count 4.97 M/uL (3.86-4.86)
[2023-06-24 10:01] LABS: Protime INR 1.03
[2023-06-24 10:05] LABS: Barbiturates NEGATIVE (NEGATIVE); Benzodiazepines NEGATIVE (NEGATIVE); Cocaine NEGATIVE (NEGATIVE); METHAMPHETAM NEGATIVE (NEGATIVE); Methadone NEGATIVE (NEGATIVE); Opiates NEGATIVE (NEGATIVE); Phencyclidine NEGATIVE (NEGATIVE); Specific Gravity 1.022 (1.005-1.030); THC Cannibis POSITIVE (NEGATIVE)
[2023-06-24 10:09] LABS: Specific Gravity 1.022 (1.005-1.030); Urine Bacteria None Seen /HPF (<20); Urine Bilirubin NEGATIVE (Negative); Urine Blood Negative (Negative); Urine Clarity Turbid (Clear); Urine Color Yellow (Yellow); Urine Glucose NEGATIVE (Negative); Urine Mucus Slight /HPF (None Seen); Urine Protein 2+ (Negative); Urine RBC <5 /HPF (None Seen); Urine Urobilinogen Normal (Normal)
[2023-06-24 10:37] LABS: ALT/SGPT 26 U/L (13-56); AST/SGOT 16 U/L (15-37); Albumin 3.3 g/dL (3.4-5.0); Alkaline Phosphatase 125 U/L (45-117); BUN Blood Urea Nitrogen 9 mg/dL (7-18); Bicarbonate 25 mEq/L (21-32); Bilirubin Direct 0.2 mg/dL (0-0.2); Bilirubin Indirect, Calculated 0.4 mg/dL (0.2-0.8); Bilirubin Total 0.6 mg/dL (0.2-1.0); Glomerular Filtration Rate 122 ml/min (=/>90); Glucose Level 123 mg/dL (74-106); Protein, Total 7.2 g/dL (6.4-8.2); Sodium Level 139 mEq/L (136-145)
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
--- NOTE | 2023-06-24 16:01 | ER ---
Nurse's Notes [facility] Name: Yuli Talbert Age: 38 yrs Sex: Female : 1985 Arrival Date: 06/24/2023 Time: 08:27 Bed 16 Private MD: Diagnosis: Psychiatric problem Presentation: 06/24 08:45 Chief complaint: Patient states: "I woke up this morning and the dishes weren't done. I jl7 got angry and started arguing with my . The neighbors called the supervisor self service store because we were yelling loudly. PD came and because I cut my arm with a dull knife they said I could come in voluntarily or they would force me. I do not want to kill myself. I was just trying to feel something because when I am that angry I can't feel. I have been doing this since I was 9 years old. I do not want to . That's the last thing I want. I have kids." Superficial abrasions noted to left forearm, no blood noted. 08:45 Coronavirus screen: At this time, the client does not indicate any symptoms associated jl7 with coronavirus-19. Ebola Screen: No symptoms or risks identified at this time. Initial Sepsis Screen: Does the patient meet any 2 criteria? No. Patient's initial sepsis screen is negative. Does the patient have a suspected source of infection? No. Patient's initial sepsis screen is negative. Risk Assessment: Do you want to hurt yourself or someone else? Patient reports no desire to harm self or others. Onset of symptoms was June 24, 2023. 08:45 Method Of Arrival: EMS: [facility] 08:45 Acuity: CANDICE 2 jl7 Triage Assessment: 09:09 General: Appears in no apparent distress. uncomfortable, Behavior is cooperative, jl7 crying. Pain: Denies pain. Neuro: Level of Consciousness is awake, alert, obeys commands, Oriented to person, place, time, situation. Cardiovascular: Patient's skin is warm and dry. Respiratory: Airway is patent Respiratory effort is even, unlabored, Respiratory pattern is regular, symmetrical. Derm: Skin is pink, warm \\T\\ dry. C.O.D. BILLER: 09:09 LMP 06/03/2023, unknown [facility] Historical: - Allergies: 09:09 NKDA; jl7 - Home Meds: 09: Abilify 15 mg Oral tablet 1 tab daily [Active]; propranolol 40 mg Oral tablet 1 tab 2 jl7 times per day [Active]; tizanidine 4 mg Oral tablet [Active]; desvenlafaxine succinate 100 mg oral Tablet, Extended Release 24 hr [Active]; aripiprazole 15 mg oral tablet [Active]; - PMHx: 09: adhd; Anxiety; Bipolar disorder; BORDERLINE PERSONALITY DISORDER; chronic back pain; jl7 Goiter (Hypertensive disord); Herniated disc (Hypertensive disord); Hypertensive disorder; hyperthyroidism; traumatic brain injury (Hypertensive disord); - Immunization history:: Adult Immunizations unknown. - Social history:: Smoking status: Reported history of juuling and/or vaping. Patient uses street drugs, marijuana. - Family history:: not pertinent. - Hospitalizations: : No recent hospitalization is reported. Screenin:15 [facility] ED Fall Risk Assessment (Adult) Score/Fall Risk Level 0 - 2 = Low Risk nj1 Oriented to surroundings, Maintained a safe environment, Hourly rounding (assess needs \\T\\ fall precautionary measures) done. 09:15 Abuse screen: Denies injuries from another. Tuberculosis screening: No symptoms or risk nj1 factors identified. 09:15 Nutritional screening: No deficits noted. nj1 Assessment: 09:15 General: Appears in no apparent distress. comfortable, Behavior is calm, cooperative, nj1 appropriate for age. 09:15 Pain: Denies pain. Neuro: Level of Consciousness is awake, alert, obeys commands, nj1 Oriented to person, place, time, situation. Cardiovascular: Patient's skin is warm and dry. Respiratory: Airway is patent Respiratory effort is even, unlabored. Injury Description: Abrasion sustained to left arm is scabbed. 11:00 Reassessment: Patient appears in no apparent distress at this time. Pt resting/sleeping.nj1 13:01 Reassessment: Patient appears in no apparent distress at this time. Patient and/or nj1 family updated on plan of care and expected duration. Pain level reassessed. Patient is alert, oriented x 3, equal unlabored respirations, skin warm/dry/pink. 13:52 Reassessment: [facility] here to see patient. nj1 15:00 Reassessment: Patient appears in no apparent distress at this time. Patient and/or nj1 family updated on plan of care and expected duration. Pain level reassessed. Patient is alert, oriented x 3, equal unlabored respirations, skin warm/dry/pink. Pt on the phone, speaking with mother. 17:00 Reassessment: Patient appears in no apparent distress at this time. Pt resting/sleeping.nj1 19:15 General: Appears comfortable, Behavior is calm, cooperative. Pain: Denies pain. Neuro: ha1 Level of Consciousness is awake, alert, obeys commands, Oriented to person, place, time, situation. Neuro: DENIES SUICIDAL IDEATION . Cardiovascular: Patient's skin is warm and dry. Respiratory: Airway is patent Respiratory effort is even, unlabored, Respiratory pattern is regular, symmetrical. GI: No signs and/or symptoms were reported involving the gastrointestinal system. Derm: Skin is pink, warm \\T\\ dry. Musculoskeletal: Circulation, motion, and sensation intact. 19:58 Reassessment: nurse nurse report given to LYNDSAY Bryant with Jorge Grant. ha1 20:25 Reassessment: EYES CLOSED. Respiratory: Airway is patent Respiratory effort is even, ha1 unlabored, Respiratory pattern is regular, symmetrical. 21:30 Reassessment: EYES CLOSED. Respiratory: Airway is patent Respiratory effort is even, ha1 unlabored, Respiratory pattern is regular, symmetrical. 23:30 Reassessment: EYES CLOSED. Respiratory: Airway is patent Respiratory effort is even, ha1 unlabored, Respiratory pattern is regular, symmetrical. 06/25 01:30 Reassessment: eyes closed. Respiratory: Airway is patent Respiratory effort is even, ha1 unlabored, Respiratory pattern is regular, symmetrical. 02:30 Reassessment: eyes closed. Respiratory: Airway is patent Respiratory effort is even, ha1 unlabored, Respiratory pattern is regular, symmetrical. 03:30 Reassessment: eyes closed. Respiratory: Airway is patent Respiratory effort is even, ha1 unlabored, Respiratory pattern is regular, symmetrical. 05:01 Reassessment: eyes closed. Respiratory: Airway is patent Respiratory effort is even, ha1 unlabored, Respiratory pattern is regular, symmetrical. 05:30 Reassessment: Patient and/or family updated on plan of care and expected duration. Pain ha1 level reassessed. Patient is alert, oriented x 3, equal unlabored respirations, skin warm/dry/pink. Psych: 06/24 08:45 [place] Suicide Severity Screening: In the past month, have you wished you were jl7 or wished you could go to sleep and not wake up? Patient responds "No." "In the past month, have you actually had any thoughts of killing yourself?" Patient responds "no." "In your lifetime, have you ever done anything, started to do anything, or prepared to do anything to end your life?" Patient responds "no.". Subjective: Patient's mood is sad, Delusions are denied, Hallucinations are denied Having thoughts of denies. Objective: Patient is cooperative, Speech is normal, Affect is appropriate, Patient has mutilated themselves by superficial abrasions to left forearm. Interventions: Removed personal items and placed in bag. Patient placed in hospital gown. Searched person for dangerous items. Urine collected and sent for urine drug test. Belonging list filled out. Safety Checks: Personal items have been removed. Door is open. No visitors are present at this time. Patient uses marijuana daily. 19:00 Commitment: Patient will be an involuntary commitment. ha1 Vital Signs: 08:45 BP 136 / 97 RA Sitting (auto/lg); Pulse 132 MON; Resp 20 S; Temp 98.5; Pulse Ox 98% on jl7 R/A; 09:33 BP 123 / 81; Pulse 99; Resp 16; Pulse Ox 96% on R/A; nj1 09:34 Weight 75.75 kg; Height 5 ft. 5 in. ; ld1 19:55 BP 120 / 75; Pulse 94; Resp 17 S; Temp 98.3; Pulse Ox 99% on R/A; ha1 06/25 05:25 BP 127 / 79; Pulse 90; Resp 17 S; Temp 98.1; Pulse Ox 99% on R/A; ha1 06/24 09:34 Body Mass Index 27.79 (75.75 kg, 165.1 cm) ld1 06/24 08:45 Pt crying while talking about fight with jl7 ED Course: 08:41 Patient arrived in ED. iw 08:45 Report given to LYNDSAY Doss. jl7 08:56 Karma Loyd RN is Primary Nurse. jl7 08:58 Simeon Bosch MD is Attending Physician. rn 09:09 Triage completed. jl7 09:09 Arm band placed on right wrist. Patient placed in an exam room, on a stretcher. jl7 09:15 Patient has correct armband on for positive identification. Bed in low position. Sitter nj1 doing close monitoring. 09:33 Urine Drug Screen Sent. ld1 09:33 Urinalysis w/ reflexes Sent. ld1 09:33 Test, Urine Sent. ld1 09:41 Inserted saline lock: 22 gauge in left antecubital area, using aseptic technique. Blood ds4 collected. 12:35 chief deputy clerk/bailiff contacted [facility] to arrange for a mental health screener bc6 to come visit with this pt. 14:15 Primary Nurse role handed off by Karma Loyd RN jl7 14:39 Selam Marsh, RN is Primary Nurse. nj1 17:20 Pt clinical information faxed to Bhavna Padilla. em1 19:00 Patient has correct armband on for positive identification. Bed in low position. Call ha1 light in reach. Side rails up X 1. SITTER DOING CLOSE MONITORING. 20:00 iniated transfer to [facility] spoke with Awa. vk 20:05 Patient accepted to [facility] per awa. vk 22:45 Provided Education on: NEED FOR TRANSFER . ha1 23:00 called [facility] spoke with margot initiated paperwork for warrant vk to transfer. 23:47 initiated transfer paperwork with judge arthur signed and returned via fax. vk 23:52 called [facility] to initiate transfer with bharathi, dispatch stated he had vk higher priority calls and would reach out with time for transportation. 06/25 00:26 Primary Nurse role handed off by Selam Marsh, LYNDSAY ap3 02:00 called to follow up with transfer to [facility], spoke with skyler dispatch stated bharathi was still out on calls. 05:30 bharathi Hodgson transferred patient to facility. vk 05:30 No provider procedures requiring assistance completed. Patient did not have IV access ha1 during this emergency room visit. pt. did not have an IV access. Administered Medications: 06/24 13:40 Drug: Nicotine Transdermal Patch 21 mg/24 hr 1 patches Transdermal once {Note: upper nj1 arm.} Route: Transdermal; Site: affected area; Medication: 06/25 05:30 VIS not applicable for this client. ha1 Outcome: 06/24 16:01 ER care complete, transfer ordered by . lyndsay 06/25 05:30 Patient left the ED. 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 Transfer form completed. Note: transfer to [place] [id number] 05:30 Condition: stable 05:30 Discharge instructions given to patient, Instructed on the need for transfer, Demonstrated understanding of instructions, Signatures: Nasreen Cheney, RN RN Simeon Matias MD MD rn Martinez, Eric em1 Joaquin Owen ds4 Karma Loyd RN RN jl7 Sylvia Mayorga RN RN ap3 Alaina Gomez RN RN ld1 Ramandeep Self RN RN 1 Agustina Luis 6 Selam Marsh RN RN nj1 Sarah Matthews Corrections: (The following items were deleted from the chart) 06/24 09:01 08:45 BP 136 / 97 Sitting Auto R Arm Large; Pulse 132bpm Monitor; Resp 20bpm; jl7 Spontaneous; Pulse Ox 98% RA; 4 09:13 09:09 PSHx: tubal ligation; jl7 jl7 09:13 09:09 PSHx: right knee surgery; jl7 jl7 09:43 09:15 Injury Description: Abrasion sustained to right arm and left arm [place] [id number] 22:47 22:45 Patient is placed in psych hold [place] [id number] 22:47 22:45 Patient is placed in psych hold [place] [id number] 06/25 02:41 06/24 19:55 BP 120 / 75; Pulse 94bpm; Resp 17bpm; Spontaneous; Pulse Ox 99% RA; [place] [address] 06/25 05:48 05:46 Patient left the ED. [place] [id number]
[2023-06-25 05:56] VITALS: BP 120/75; TEMP 98.3; O2SAT 99
--- NOTE | 2023-06-28 14:45 | EKG ---
Test Date: 2023-06-24 Test Time: 09:21:57 Injection Machine Operator: CLOVIS MEASUREMENT RESULTS: Intervals: Rate: 119 MO: 130 QRSD: 84 QT: 326 QTc: 458 [place]: P: 65 MO: 130 QRS: 63 T: 55 INTERPRETIVE STATEMENTS: Sinus tachycardia Cannot rule out Anterior infarct, age undetermined Abnormal ECG Compared to ECG 09/05/2019 06:19:41 Myocardial infarct finding now present Sinus rhythm no longer present Electronically Signed On 06-28-23 14:32:59 FAMILY LIFE EDUCATOR by Jorge Dickerson
== END ==
LOC: ER 08:27
DX: F99 Mental disorder, not otherwise specified (principal); F60.3 Borderline personality disorder; I10 Essential (primary) hypertension; Z87.820 Personal history of traumatic brain injury
CPT/HCPCS: 36415; 80048; 80076; 80143; 80179; 80307; 81001; 81025; 82077; 85025; 85610; 85730; 93005